=== PATIENT | female | born 1955 | race Caucasian/White ===

== ENCOUNTER 2021-12-26 17:56 | Inpatient (IN) ==
[2021-12-26] MEDS ORDERED: ONDANSETRON INJ 2 MG/ML 2 ML VIAL IV STA (18:27)
[2021-12-26] MEDS: SODIUM CHLORIDE 0.9% 500 ML IV SCH ×2 (18:35→23:03)
--- NOTE | 2021-12-26 18:56 | CT Scan Report ---
CT head/brain wo con CLINICAL HISTORY: syncope on coumadin Technique: Contiguous axial CT images of the head were acquired from the base of the skull to the kathleen abilio without intravenous contrast administration. Images were viewed in brain, subdural and bone [facility]. Automated dose lowering techniques and/or adjustment according to patient size were utilized for this exam. Comparison: None available at the time of this dictation. Findings: Areas of decreased attenuation are present in the periventricular and subcortical white matter bilate rally consistent with small vessel ischemic disease. Generalized cerebral atrophy with commensurate e nlargement of the ventricles, sulci, and cisterns is also present. There is no acute intracranial hem orrhage or evidence of acute territorial infarction. No shift of the midline structures, mass effect, or extra-axial abnormalities are shown. Atherosclerotic calcifications are present in the intracran ial segments of the internal carotid arteries. Encephalomalacia compatible with old infarct is seen i n the left parietal lobe. Imaged portions of the paranasal sinuses and mastoid air cells are clear. The orbits appear normal. There are no acute fractures of the calvaria or scalp swelling. Impression: No acute intracranial hemorrhage, no evidence of acute territorial infarction or other acute intracra nial disease process. ACT 112: Negative or not required by law. Electronically signed by: Yemi Kirby M.D. 12/26/2021 6:55 PM
--- NOTE | 2021-12-26 19:19 | XRay Report ---
XR abdomen 2V w PA chest CLINICAL HISTORY: cp epigastric pain TECHNIQUE: 2 views of the abdomen were obtained. A single view of the chest was obtained. Comparison: None available at the time of this dictation. FINDINGS: Median sternotomy wires are unchanged. Cardiomegaly is noted. The lungs are clear. No evidence of ple ural effusion or pneumothorax. The osseous structures are grossly unremarkable. No evidence of bowel obstruction is seen. IMPRESSION: Nonobstructive bowel gas pattern. ACT 112: Negative or not required by law. Electronically signed by: Yemi Kirby M.D. 12/26/2021 7:17 PM
[2021-12-26 19:56] LABS: Basophils # (auto) 0.01 K/uL (0-0.2); Basophils % (auto) 0.1 %; Eosinophils # (auto) 0.02 K/uL (0-0.5); Eosinophils % (auto) 0.1 %; Hematocrit (blood only) 43.3 % (37-47); Hemoglobin 14.1 g/dL (12.0-16.0); Immature Granulocytes # (auto) 0.04 K/uL (0.00-0.02); Immature Granulocytes % (auto) 0.2 %; Lymphocytes # (auto) 0.75 K/uL (1.2-3.4); Lymphocytes % (auto) 4.2 %; Mean Corpuscular Hemoglobin 29.1 pg (25-34); Mean Corpuscular Hgb Conc 32.6 g/dL (32-36); Mean Corpuscular Volume 89.3 fL (80-100); Mean Platelet Volume 10.7 fL (7.4-10.4); Monocytes # (auto) 0.49 K/uL (0.11-0.59); Monocytes % (auto) 2.8 %; Neutrophils # (auto) 16.35 K/uL (1.4-6.5); Neutrophils % (auto) 92.6 %; Platelet Count 306 K/uL (130-400); RDW Coefficient of Variation 14.6 % (11.5-14.5); RDW Standard Deviation 47.4 fL (36.4-46.3); Red Blood Count 4.85 M/uL (4.2-5.4); White Blood Count 17.66 K/uL (4.8-10.8)
[2021-12-26 20:01] LABS: Partial Thromboplastin Ratio 1.2; Partial Thromboplastin Time 31.7 Seconds (21.0-31.0); Prothrombin Time 20.2 Seconds (9.0-12.0)
[2021-12-26 20:09] LABS: BUN Creatinine Ratio 14.3 (10-20); Calcium 9.2 mg/dl (8.5-10.1); Creatinine Clr Calc Pharmacy 62.2 ml/min; Est GFR (Non-African American) 79.3 ml/min; Potassium 3.7 mmol/L (3.5-5.1)
--- NOTE | 2021-12-26 20:44 | Ultrasound Report ---
US gallbladder CLINICAL HISTORY: ruq pain TECHNIQUE: Multiple real-time sonographic images of the right upper quadrant were obtained. Comparison: None available at the time of this dictation. FINDINGS: The liver is diffusely homogenous with normal contour and echogenicity. No focal mass lesions are se en. No intrahepatic ductal dilatation is seen. Gallbladder wall is thickened and edematous measur ing 9 mm. Small gallstones are seen within. The vascular flow is seen in the gallbladder wall. A sono graphic Avila's sign was not elicited by the passenger conductor. The common duct measures 0.[address] at the level of the hepatic artery. The visualized portions of the pancreas appear normal. The right kidney shows normal echogenicity, cortical thickness and renal contour. The right kidney sh ows no evidence of hydronephrosis or mass. No ascites or free fluid is seen in Sauer's pouch. IMPRESSION: Findings are concerning for acute cholecystitis. Avila's sign was negative, correlation with history of pain medication is recommended. If uncertainty remains, nuclear medicine HIDA scan can be perform ed. ACT 112: Negative or not required by law. Electronically signed by: Yemi Kirby M.D. 12/26/2021 8:42 PM
[2021-12-26] MEDS ORDERED: PIPERACILLIN/TAZOBACTAM 4.5 GM/120 ML BAG IV ONE (21:39)
--- NOTE | 2021-12-26 21:57 | Surgery Consultation ---
Date of Consultation December 26, 2021 Assessment & Plan (1) Acute cholecystitis: I discussed with the treating emergency room physician and the patient is being admitted on the hospitalist service. Concerning acute cholecystitis we recommend proceeding as follows: Keep patient n.p.o. Provide analgesics Provide antiemetics Provide hydration with IV fluids [place] antibiotics. The treating emergency room physician has already initiated Zosyn Hold patient's Coumadin -Follow serial labs Obtain GI consult secondary to elevated LFTs It appears as though the patient may benefit from a cholecystectomy. Prior to performing cholecystectomy however we would like to obtain a gastroenterology input secondary to the patient's elevated LFTs. We will also need to have her INR decreased to make the risk of perioperative bleeding less likely. Would also be ideal to have patient medically cleared from a cardiology standpoint due to her significant cardiovascular history and near syncopal episode at time of her presentation today Additional recommendation will be forthcoming based on her clinical course as unfolds Supervising Physician Co-Signing Physician Notes I personally saw and evaluated the patient with Hussain Wiseman PA-C and agree with the assessment and plan. 66-year-old female with acute cholecystitis, elevated LFTs, significant cardiac history as well as syncopal episode Ultrasound images and results viewed by me Clinically she does have what looks like acute cholecystitis Medicine is already admitting the patient We will keep her n.p.o. give her IV antibiotics and consult gastroenterology for elevated LFTs History of Present Illness Reason for Consultation: Cholecystitis History of Present Illness This is a 66-year-old female who presented to [facility] emergency department secondary to a near syncopal episode. Patient notes that she was in her usual state of health earlier today but then developed some pain in her right upper quadrant as well as chest with associated nausea, vomiting, and diarrhea. She then had a near syncopal episode but denies actually passing out and specifically notes that she did not fall or hit her head. She notes the pain did not radiate. She denies any provocative factors of the pain but note that the pain was improved when she vomited and she also has a significant cardiac history and therefore took nitroglycerin which she noted did improve the pain slightly. I did asked the patient about whether or not she experienced postprandial pain over the past several weeks which she denies. Patient notes that she has a significant cardiac history having suffered a heart attack in the past and also underwent coronary bypass grafting in 2019. She does follow locally with Elton Lee of [facility] [address] cardiology. She is notes that she has seen her cardiology team within the past month. The patient notes that she does try to lead an active lifestyle she is able to perform housework and walk her dog. She notes with these activities she does not get chest pain or shortness of breath. Today in the emergency department patient had labs and imaging which independent reviewed. The patient did undergo a CT scan of the head that showed no acute intracranial hemorrhage or acute intracranial strokes. Patient did have a chest x-ray and abdominal x-ray that showed a nonobstructive Bowel gas pattern and no evidence of pneumonia. A gallbladder ultrasound was performed that showed findings concerning for acute cholecystitis. The gallbladder wall was noted to be thickened and edematous measuring up to 9 mm. There were small gallstones seen within the gallbladder. Labs include a CBC her white blood cell count was 17.6. Hemoglobin, hematocrit, and platelet count were all normal. Coagulation studies showed an INR of 2.0. Chemistry profile showed sodium and potassium are both normal. BUN and creatinine were noted to be normal. Patient's total bilirubin and direct bilirubin were 1.9 and 1.2 respectively. AST and ALT were both elevated at 517 and 128 respectively. Alkaline phosphatase was 250. Troponin was checked and was not elevated. The patient's lipase was also not elevated. COVID test was performed and was negative. An EKG was performed that did not show any changes indicative of acute ischemia and sinus rhythm was noted. At the time of my interview the patient was resting comfortably in bed and she was in no distress. Allergies Allergy/AdvReac Type Severity Reaction Status Date / Time clopidogrel [From Plavix] Allergy Severe facial Verified 12/26/21 19:01 swelling, itching ticagrelor [From Brilinta] Allergy Severe facial Verified 12/26/21 19:01 swelling, itching oxycodone Allergy Intermediate itching Verified 12/26/21 19:01 Home Medications Medication Instructions Recorded Confirmed Type atorvastatin 10 mg tablet 20 mg PO QPM 08/26/20 12/26/21 History fluoxetine 40 mg capsule 40 mg PO QAM 08/26/20 12/26/21 History ipratropium bromide 17 2 puff INHALATION QID 08/26/20 12/26/21 History mcg/actuation HFA aerosol inhaler nitroglycerin 0.4 mg sublingual 0.4 mg SUBLINGUAL Q5M PRN 08/26/20 12/26/21 History tablet (Nitrostat) sacubitril 97 mg-valsartan 103 mg 1 tab PO BID 08/26/20 12/26/21 History tablet (Entresto) warfarin 2.5 mg tablet See Rx Instructions .ROUTE 08/26/20 12/26/21 History .COMPLEX tab amlodipine 2.5 mg tablet 2.5 mg PO QAM 09/30/21 12/26/21 History famotidine 20 mg tablet 20 mg PO HS 09/30/21 12/26/21 History fluticasone furoate 100 1 inh INHALATION QAM 09/30/21 12/26/21 History mcg-vilanterol 25 mcg/dose inhalation powder (Breo Ellipta) mirtazapine 45 mg tablet 45 mg PO HS 09/30/21 12/26/21 History pantoprazole 40 mg tablet,delayed 40 mg PO BID 09/30/21 12/26/21 History release alendronate 70 mg tablet 70 mg PO WK 12/26/21 12/26/21 History aspirin 81 mg chewable tablet 81 mg PO DAILY 12/26/21 12/26/21 History buspirone 30 mg tablet 30 mg PO BID 12/26/21 12/26/21 History hydrocodone 7.5 mg-acetaminophen 1 tab PO Q8H PRN 12/26/21 12/26/21 History 325 mg tablet metoprolol succinate 25 mg 25 mg PO BID 12/26/21 12/26/21 History tablet,extended release 24 hr Patient History Medical History Anxiety Anxiety disorder Aphasia, mixed CAD (coronary artery disease) follows with Elton Lee PA-C. CHF (congestive heart failure) COPD (chronic obstructive pulmonary disease) CVA (cerebral vascular accident) 2004; dysphagia, some expressive/receptive aphasia, improved with speech therapy Depression Dysphagia GERD (gastroesophageal reflux disease) History of anesthesia reaction pt has some expressive aphasia r/t previous stroke, had difficult time explaining anesthesia problem. says she had difficulty breathing coming out of anesthesia in past. unable to elaborate beyond that. says occurence x 1 while living in [place]. History of myocardial infarction 1991 HLD (hyperlipidemia) HTN (hypertension) Osteoarthritis Osteoporosis Poor historian poor memory Throat fullness reason for EGD Surgical History H/O heart artery stent 5 stents (thinks last placed in 2019) History of cardiac catheterization multiple (believes most recent was in 2019 while living in [place]) History of heart valve replacement 09/2019 while living in [place] History of open heart surgery Sep 23, 2019 History of tonsillectomy History of wisdom tooth extraction Social History Smoking Status: Former smoker Tobacco Type: Cigarettes packs per day: 0.25; Smoking End Date: 1 year ago; Second Hand Exposure: No; Do You Dip or Chew Tobacco: No; Tobacco Cessation Education Requested by Patient: No Hx Alcohol Use: No Hx Substance Use: No Preferred Language: Macedonian Communication Ability: Effective Visual Impairment: Limited Hearing Ability: Normal Hyperion Developer Required: No Beliefs That Will Affect Care: None marital status: / Current Living Situation: Alone current occupational status: disabled current occupation: on disability since 2004 Other Information That Helps Us Care for You: No Feels Safe at Home: Yes Safety Concerns: Feels Safe At This Time Assistive Devices: Denture - Upper, Denture - Lower and Glasses Review of Systems Constitutional: no fever and no chills Eyes: no diplopia Ear, Nose, Mouth, Throat: no ear pain Respiratory: no cough and no dyspnea Cardiovascular: + chest pain and + syncope (Near syncope) Gastrointestinal: + abdominal pain, + nausea and + vomiting Genitourinary: no dysuria Musculoskeletal: no back pain Integumentary: no rash Neurologic: no localized weakness Physical Exam Constitutional: well developed and well nourished; no acute distress Eyes: no conjunctival abnormality ENMT: Ears: no hearing impairment and no external ear abnormality Mouth: no oropharynx abnormality Neck: trachea midline Respiratory: normal respiratory effort; no respiratory distress and no labored breathing Cardiovascular: Rate/Rhythm: regular rate and regular rhythm Gastrointestinal (Abdomen): Abdomen is soft and nondistended. There is pain with palpation in the right upper quadrant. Musculoskeletal: No calf tenderness Skin: no rashes Neurologic: moves all extremities Psychiatric: A+Ox3, euthymic affect Results & Data ([facility]) Vital Signs (Past 12 Hours) Vital Signs Temp Pulse Resp BP Pulse Ox 12/26/21 21:00 74 22 128/79 94 12/26/21 19:30 76 19 132/78 92 12/26/21 19:05 94 12/26/21 19:01 77 21 167/92 H 94 12/26/21 18:30 61 19 101/62 93 12/26/21 18:28 93 12/26/21 18:02 36.8 C 64 20 158/75 H 93 PG Care Time/CCT Total # of Minutes Spent Total Time Spent with Patient: Total time spent is greater than 50% in coordination of care (as documented) at patient's floor/unit and/or counseling patient: Coding Level of Care Code 13487 Inpt Consult Level 5 Diagnoses Acute cholecystitis K81.0
[2021-12-26 21:58] LABS: Albumin Level 4.2 gm/dl (3.4-5.0); Bilirubin Direct 1.2 mg/dl (0-0.2); Bilirubin,Total 1.9 mg/dl (0.2-1.0)
--- NOTE | 2021-12-26 22:43 | Emergency Department Note ---
History of Present Illness General Chief complaint: Syncope Time Seen by Provider: 12/26/21 18:19 History of Present Illness Provider complaint: Abdominal pain syncope diarrhea Onset (ago): day(s) 1 Location: abdomen Pain Consistency: + intermittent Quality: + stabbing, + aching, + sharp and + dull Relieved By: + none Exacerbated By: + none Associated symptoms: + chest pain, + nausea/vomiting and + syncope; no cough, no fever/chills, no headaches, no seizure or no weakness 66-year-old female presents to the emergency department for multiple complaints. Patient states earlier today she was having diarrhea. Patient states she is then developed right upper quadrant pain. Patient reports at 1 PM she started having right-sided chest pain so she took a nitroglycerin. Patient states after she took nitroglycerin she felt more nauseous and then had a syncopal episode. Patient states she did not fall or hit her head. Patient is on Coumadin. No difficulty breathing. Home Medications Medication Instructions Recorded Confirmed Type atorvastatin 10 mg tablet 20 mg PO QPM 08/26/20 12/26/21 History fluoxetine 40 mg capsule 40 mg PO QAM 08/26/20 12/26/21 History ipratropium bromide 17 2 puff INHALATION QID 08/26/20 12/26/21 History mcg/actuation HFA aerosol inhaler nitroglycerin 0.4 mg sublingual 0.4 mg SUBLINGUAL Q5M PRN 08/26/20 12/26/21 History tablet (Nitrostat) sacubitril 97 mg-valsartan 103 mg 1 tab PO BID 08/26/20 12/26/21 History tablet (Entresto) warfarin 2.5 mg tablet See Rx Instructions .ROUTE 08/26/20 12/26/21 History .COMPLEX tab amlodipine 2.5 mg tablet 2.5 mg PO QAM 09/30/21 12/26/21 History famotidine 20 mg tablet 20 mg PO HS 09/30/21 12/26/21 History fluticasone furoate 100 1 inh INHALATION QAM 09/30/21 12/26/21 History mcg-vilanterol 25 mcg/dose inhalation powder (Breo Ellipta) mirtazapine 45 mg tablet 45 mg PO HS 09/30/21 12/26/21 History pantoprazole 40 mg tablet,delayed 40 mg PO BID 09/30/21 12/26/21 History release alendronate 70 mg tablet 70 mg PO WK 12/26/21 12/26/21 History aspirin 81 mg chewable tablet 81 mg PO DAILY 12/26/21 12/26/21 History buspirone 30 mg tablet 30 mg PO BID 12/26/21 12/26/21 History hydrocodone 7.5 mg-acetaminophen 1 tab PO Q8H PRN 12/26/21 12/26/21 History 325 mg tablet metoprolol succinate 25 mg 25 mg PO BID 12/26/21 12/26/21 History tablet,extended release 24 hr Allergies Allergy/AdvReac Type Severity Reaction Status Date / Time clopidogrel [From Plavix] Allergy Severe facial Verified 12/26/21 19:01 swelling, itching ticagrelor [From Brilinta] Allergy Severe facial Verified 12/26/21 19:01 swelling, itching oxycodone Allergy Intermediate itching Verified 12/26/21 19:01 Past Med/Surg History Medical History Anxiety Anxiety disorder Aphasia, mixed CAD (coronary artery disease) follows with Elton Lee PA-C. CHF (congestive heart failure) COPD (chronic obstructive pulmonary disease) CVA (cerebral vascular accident) 2004; dysphagia, some expressive/receptive aphasia, improved with speech therapy Depression Dysphagia GERD (gastroesophageal reflux disease) History of anesthesia reaction pt has some expressive aphasia r/t previous stroke, had difficult time explaining anesthesia problem. says she had difficulty breathing coming out of anesthesia in past. unable to elaborate beyond that. says occurence x 1 while living in [place]. History of myocardial infarction 1991 HLD (hyperlipidemia) HTN (hypertension) Osteoarthritis Osteoporosis Poor historian poor memory Throat fullness reason for EGD Surgical History H/O heart artery stent 5 stents (thinks last placed in 2019) History of cardiac catheterization multiple (believes most recent was in 2019 while living in [place]) History of heart valve replacement 09/2019 while living in [place] History of open heart surgery Sep 23, 2019 History of tonsillectomy History of wisdom tooth extraction Social History Smoking Status: Former smoker Tobacco Type: Cigarettes packs per day: 0.25; Second Hand Exposure: No; Hx Alcohol Use: No Hx Substance Use: No Preferred Language: Sami Communication Ability: Effective Visual Impairment: Limited Hearing Ability: Normal Informatics Analyst Required: No Beliefs That Will Affect Care: None marital status: / Current Living Situation: Alone current occupational status: disabled current occupation: on disability since 2004 Feels Safe at Home: Yes Assistive Devices: Denture - Upper, Denture - Lower and Glasses Review of Systems A total of 10 systems reviewed and were otherwise negative Physical Exam Vital Signs Vital Signs - 24 hr 12/26/21 18:02 12/26/21 18:28 12/26/21 18:30 Temperature 36.8 C Temperature Source Oral Pulse Rate 64 61 Respiratory Rate 20 19 Respiratory Effort / Characteristics Non-Labored Spontaneous Respiratory Depth Normal Blood Pressure 158/75 H 101/62 Blood Pressure Mean 102 75 Blood Pressure Position Lying Pulse Oximetry 93 93 93 Oxygen Delivery Method Room Air Room Air Sepsis Recent Fever Within 48 Hours No Sepsis New/Unexplained Change in Mental Status N/A Sepsis Action Taken by Nursing No Action Required 12/26/21 19:01 12/26/21 19:05 12/26/21 19:30 Temperature Temperature Source Pulse Rate 77 76 Respiratory Rate 21 19 Respiratory Effort / Characteristics Respiratory Depth Blood Pressure 167/92 H 132/78 Blood Pressure Mean 117 96 Blood Pressure Position Pulse Oximetry 94 94 92 Oxygen Delivery Method Room Air Sepsis Recent Fever Within 48 Hours Sepsis New/Unexplained Change in Mental Status Sepsis Action Taken by Nursing 12/26/21 21:00 12/26/21 21:30 12/26/21 22:00 Temperature Temperature Source Pulse Rate 74 77 72 Respiratory Rate 22 20 23 Respiratory Effort / Characteristics Respiratory Depth Blood Pressure 128/79 120/73 116/73 Blood Pressure Mean 95 88 87 Blood Pressure Position Pulse Oximetry 94 95 96 Oxygen Delivery Method Sepsis Recent Fever Within 48 Hours Sepsis New/Unexplained Change in Mental Status Sepsis Action Taken by Nursing Physical Exam GENERAL: She is oriented to person, place, and time. She appears well-developed and well-nourished. She does not appear distressed. HENT: Exam performed. -Head: Normocephalic and atraumatic. -Right Ear: External ear normal. No mastoid tenderness. -Left Ear: External ear normal. No mastoid tenderness. -Mouth/Throat: The oropharynx is clear and moist. No trismus in the jaw. No dental abscesses or uvula swelling. No oropharyngeal exudate or tonsillar abscesses. EYES: Conjunctivae and EOM are normal. Pupils are equal, round, and reactive to light. Right eye exhibits no discharge. Left eye exhibits no discharge. No scleral icterus. NECK: Normal range of motion. Neck supple. No JVD present. No spinous process tenderness present. No carotid bruit present. No rigidity. No tracheal deviation and normal range of motion present. No Brudzinski's sign and no Kernig's sign noted. CV: Normal rate, regular rhythm, normal heart sounds and intact distal pulses. There is no peripheral edema. Palpable radial pulses bue. PULM/CHEST: Effort normal and breath sounds normal. No respiratory distress. No stridor. She has no wheezes. She has no rales. -Chest Wall: She exhibits no tenderness. ABD: The abdomen is soft. Bowel sounds are normal. She has no distension. No mass is present. There is tenderness epigastric area and right upper quadrant area There is no rebound, no guarding, no Avila's sign and no tenderness at McBurney's point. Rovsig negative MUSC/SKEL: Normal range of motion. There is no peripheral edema, tenderness or deformity. LYMPH: No cervical adenopathy. NEURO: She is alert and oriented to person, place, and time. She has normal strength. No cranial nerve deficit or sensory deficit. Coordination and gait normal. GCS eye subscore is 4. GCS verbal subscore is 5. GCS motor subscore is 6. Cerebellar tests wnl. SKIN: Skin is warm and dry. She is not diaphoretic. PSYCH: She has a normal mood and affect. Behavior is normal. Judgment and thought content normal. Course Course 1818: The patient was evaluated in room A3. A complete history and physical exam was performed Cardiac monitoring: An order was placed for continuous cardiac monitoring. The monitor shows a rate of 70 with sinus rhythm. 2134: Vital signs stable.Labs show leukocytosis of 17.6. INR therapeutic at 2. Bilirubin elevated at 1.9 direct bilirubin elevated 1.2. AST and ALT are 517 and 128 respectively. Alkaline phosphatase 250. Troponin within normal limits.Ultrasound of the gallbladder is concerning for acute cholecystitis. CT of the head within normal limits. Chest x-ray within normal limits. Discussed case with general surgery Juvenal Lew who recommends inpatient admission to medicine they will be on consult. Zosyn ordered for the patient. Administered Medications Sodium Chloride (Nss) 500 mls @ 125 mls/hr IV .Q4H BELLO Stop: 01/25/22 18:29 Last Infusion: 12/26/21 22:35 Dose: 0 mls/hr Documented by: [id number] Admin: 12/26/21 18:35 Dose: 125 mls/hr Documented by: [id number] Discontinued Medications Piperacillin Sod/Tazobactam Sod (Zosyn) 4.5 gm in 120 mls @ 240 mls/hr IV NOW ONE Stop: 12/26/21 22:08 Last Infusion: 12/26/21 22:34 Dose: 0 mls/hr Documented by: [id number] Admin: 12/26/21 21:51 Dose: 240 mls/hr Documented by: [id number] Ondansetron HCl (Ondansetron Inj 2 Mg/Ml 2 Ml Vial) 4 mg IV NOW STA Stop: 12/26/21 18:28 Last Admin: 12/26/21 18:35 Dose: 4 mg Documented by: [id number] Medical Decision Making Laboratory Data Result diagrams: 12/26/21 19:37 12/26/21 19:37 Lab Results 12/26/21 12/26/21 12/26/21 Range/Units 19:37 19:37 19:37 WBC 17.66 H (4.8-10.8) K/uL RBC 4.85 (4.2-5.4) M/uL Hgb 14.1 (12.0-16.0) g/dL Hct 43.3 (37-47) % MCV 89.3 (80-100) fL MCH 29.1 (25-34) pg MCHC 32.6 (32-36) g/dL RDW Std Deviation 47.4 H (36.4-46.3) fL RDW Coeff of Fredy 14.6 H (11.5-14.5) % Plt Count 306 (130-400) K/uL MPV 10.7 H (7.4-10.4) fL Immature Gran % (Auto) 0.2 % Neut % (Auto) 92.6 % Lymph % (Auto) 4.2 % Lares % (Auto) 2.8 % Eos % (Auto) 0.1 % Baso % (Auto) 0.1 % Neut # (Auto) 16.35 H (1.4-6.5) K/uL Lymph # (Auto) 0.75 L (1.2-3.4) K/uL Lares # (Auto) 0.49 (0.11-0.59) K/uL Eos # (Auto) 0.02 (0-0.5) K/uL Baso # (Auto) 0.01 (0-0.2) K/uL Immature Gran # (Auto) 0.04 H (0.00-0.02) K/uL PT 20.2 H (9.0-12.0) Seconds INR 2.0 H (0.9-1.1) APTT 31.7 H (21.0-31.0) Seconds PTT Ratio 1.2 Sodium (136-145) mmol/L Potassium (3.5-5.1) mmol/L Chloride (98-107) mmol/L Carbon Dioxide (21-32) mmol/L Anion Gap (3-11) BUN (6-23) mg/dl Creatinine (0.6-1.2) mg/dl Est Cr Clr Drug Dosing ml/min Est GFR ( Amer) ml/min Est GFR (Non-Af Amer) ml/min BUN/Creatinine Ratio (10-20) Glucose (70-99(Fasting)) mg/dl Calcium (8.5-10.1) mg/dl Total Bilirubin (0.2-1.0) mg/dl Direct Bilirubin (0-0.2) mg/dl AST (13-39) U/L ALT (7-52) U/L Alkaline Phosphatase (34-104) U/L Troponin I High Sens 8.9 (0-14) pg/ml Total Protein (6.0-8.3) gm/dl Albumin (3.4-5.0) gm/dl Lipase (11-82) U/L SARS-CoV-2, RNA, NAAT (NEGATIVE) 12/26/21 12/26/21 12/26/21 Range/Units 19:37 19:38 20:41 WBC (4.8-10.8) K/uL RBC (4.2-5.4) M/uL Hgb (12.0-16.0) g/dL Hct (37-47) % MCV (80-100) fL MCH (25-34) pg MCHC (32-36) g/dL RDW Std Deviation (36.4-46.3) fL RDW Coeff of Fredy (11.5-14.5) % Plt Count (130-400) K/uL MPV (7.4-10.4) fL Immature Gran % (Auto) % Neut % (Auto) % Lymph % (Auto) % Lares % (Auto) % Eos % (Auto) % Baso % (Auto) % Neut # (Auto) (1.4-6.5) K/uL Lymph # (Auto) (1.2-3.4) K/uL Lares # (Auto) (0.11-0.59) K/uL Eos # (Auto) (0-0.5) K/uL Baso # (Auto) (0-0.2) K/uL Immature Gran # (Auto) (0.00-0.02) K/uL PT (9.0-12.0) Seconds INR (0.9-1.1) APTT (21.0-31.0) Seconds PTT Ratio Sodium 138 (136-145) mmol/L Potassium 3.7 (3.5-5.1) mmol/L Chloride 104 (98-107) mmol/L Carbon Dioxide 23 (21-32) mmol/L Anion Gap 11 (3-11) BUN 11 (6-23) mg/dl Creatinine 0.77 (0.6-1.2) mg/dl Est Cr Clr Drug Dosing 62.2 ml/min Est GFR ( Amer) 92.0 ml/min Est GFR (Non-Af Amer) 79.3 ml/min BUN/Creatinine Ratio 14.3 (10-20) Glucose 94 (70-99(Fasting)) mg/dl Calcium 9.2 (8.5-10.1) mg/dl Total Bilirubin 1.9 H (0.2-1.0) mg/dl Direct Bilirubin 1.2 H (0-0.2) mg/dl AST 517 H (13-39) U/L ALT 128 H (7-52) U/L Alkaline Phosphatase 250 H (34-104) U/L Troponin I High Sens (0-14) pg/ml Total Protein 7.0 (6.0-8.3) gm/dl Albumin 4.2 (3.4-5.0) gm/dl Lipase 9 L (11-82) U/L SARS-CoV-2, RNA, NAAT NEGATIVE (NEGATIVE) Imaging Data Radiologist's Impression: Head CT 12/26/21 18:19 CT head/brain wo con CLINICAL HISTORY: syncope on coumadin Technique: Contiguous axial CT images of the head were acquired from the base of the skull to the vertex without intravenous contrast administration. Images were viewed in brain, subdural and bone windows. Automated dose lowering techniques and/or adjustment according to patient size were utilized for this exam. Comparison: None available at the time of this dictation. Findings: Areas of decreased attenuation are present in the periventricular and subcortical white matter bilaterally consistent with small vessel ischemic disease. Generalized cerebral atrophy with commensurate enlargement of the ventricles, sulci, and cisterns is also present. There is no acute intracranial hemorrhage or evidence of acute territorial infarction. No shift of the midline structures, mass effect, or extra-axial abnormalities are shown. Atherosclerotic calcifications are present in the intracranial segments of the internal carotid arteries. Encephalomalacia compatible with old infarct is seen in the left parietal lobe. Imaged portions of the paranasal sinuses and mastoid air cells are clear. The orbits appear normal. There are no acute fractures of the calvaria or scalp swelling. Impression: No acute intracranial hemorrhage, no evidence of acute territorial infarction or other acute intracranial disease process. ACT 112: Negative or not required by law. Electronically signed by: Yemi Kirby M.D. 12/26/2021 6:55 PM Chest/Abdomen X-ray 12/26/21 18:27 XR abdomen 2V w PA chest CLINICAL HISTORY: cp epigastric pain TECHNIQUE: 2 views of the abdomen were obtained. A single view of the chest was obtained. Comparison: None available at the time of this dictation. FINDINGS: Median sternotomy wires are unchanged. Cardiomegaly is noted. The lungs are clear. No evidence of pleural effusion or pneumothorax. The osseous structures are grossly unremarkable. No evidence of bowel obstruct ion is seen. IMPRESSION: Nonobstructive bowel gas pattern. ACT 112: Negative or not required by law. Electronically signed by: Yemi Kirby M.D. 12/26/2021 7:17 PM Gallbladder Ultrasound 12/26/21 18:27 US gallbladder CLINICAL HISTORY: ruq pain TECHNIQUE: Multiple real-time sonographic images of the right upper quadrant were obtained. Comparison: None available at the time of this dictation. FINDINGS: The liver is diffusely homogenous with normal contour and echogenicity. No focal mass lesions are seen. No intrahepatic ductal dilatation is seen. Gallbladder wall is thickened and edematous measuring 9 mm. Small gallstones are seen within. The vascular flow is seen in the gallbladder wall. A sonographic Avila's sign was not elicited by the truck packer. The common duct measures 0.5 cm in diameter at the level of the hepatic artery. The visualized portions of the pancreas appear normal. The right kidney shows normal echogenicity, cortical thickness and renal contour. The right kidney shows no evidence of hydronephrosis or mass. No ascites or free fluid is seen in Sauer's pouch. IMPRESSION: Findings are concerning for acute cholecystitis. Avila's sign was negative, correlation with history of pain medication is recommended. If uncertainty remains, nuclear medicine HIDA scan can be performed. ACT 112: Negative or not required by law. Electronically signed by: Yemi Kirby M.D. 12/26/2021 8:42 PM ECG Data Indication: + abdominal pain Rate (beats per minute): 65 Rhythm: + normal sinus ECG Intervals/blocks: + Normal QRS, + Normal [place] and + Normal QT-c ECG ST segments: + Normal ST segments MDM Narrative Vital signs stable.Labs show leukocytosis of 17.6. INR therapeutic at 2. Bilirubin elevated at 1.9 direct bilirubin elevated 1.2. AST and ALT are 517 and 128 respectively. Alkaline phosphatase 250. Troponin within normal limits.Ultrasound of the gallbladder is concerning for acute cholecystitis. CT of the head within normal limits. Chest x-ray within normal limits. Discussed case with general surgery Juvenal Lew who recommends inpatient admission to medicine they will be on consult. Kervinn ordered for the patient. Impression & Plan Acute cholecystitis Discharge Plan Visit Data Chief Complaint: Syncope ED Provider: Lorne Hyman Discharge Problem: Acute cholecystitis Patient Disposition: Admitted As Inpatient Forms Stand Alone Forms: [facility] [employer] Prescriptions Prescriptions: No Action Entresto 97-103 mg tablet 1 tab PO BID RF: 0 atorvastatin 10 mg tablet 20 mg PO QPM RF: 0 warfarin 2.5 mg tablet See Rx Instructions .ROUTE .COMPLEX RF: 0 fluoxetine 40 mg capsule 40 mg PO QAM RF: 0 nitroglycerin [Nitrostat] 0.4 mg tablet, sublingual 0.4 mg sublingual Q5M PRN (Reason: Chest Pain) RF: 0 ipratropium bromide 17 mcg/actuation HFA aerosol inhaler 2 puff inhalation QID RF: 0 amlodipine 2.5 mg Tablet 2.5 mg PO QAM RF: 0 famotidine 20 mg Tablet 20 mg PO HS RF: 0 pantoprazole 40 mg Tablet,Delayed Release (Dr/Ec) 40 mg PO BID RF: 0 mirtazapine 45 mg Tablet 45 mg PO HS RF: 0 Breo Ellipta 100-25 mcg/dose Blister With Device 1 inh INHALATION QAM RF: 0 alendronate 70 mg tablet 70 mg PO WK RF: 0 hydrocodone-acetaminophen 7.5-325 mg tablet 1 tab PO Q8H PRN (Reason: Pain) RF: 0 buspirone 30 mg Tablet 30 mg PO BID RF: 0 aspirin 81 mg Tablet,Chewable 81 mg PO DAILY RF: 0 metoprolol succinate 25 mg tablet extended release 24 hr 25 mg PO BID RF: 0 Referrals Referrals: Abdon Pa DO [Primary Care Provider] -
--- NOTE | 2021-12-27 01:13 | History and Physical Report ---
DATE OF ADMISSION: 12/26/2021. CHIEF COMPLAINT: Right-sided abdominal pain, chest pain and questionable near syncope. 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 Currently, somewhat slow to speak, lives alone. She states the only family is her sister. Currently comes with upper right-sided abdominal pain and chest pain, it happened today for the first time. The pain is in the right upper quadrant abdomen and radiated to chest, associated with some nausea and also had diarrhea and feeling cold. Denies any fevers. She took nitroglycerin, but it did not help. Says she leaned on the bathroom for some time because she felt something was not right, but she did not pass out. Currently, pain is improved. Hemodynamically stable. Denies any headache currently, no blurred visions, no earache, no runny nose, no sore throat, no cough. She states that she does not eat much, but no difficulty swallowing. She recently had an EGD with esophageal dilatation, she is supposed to get another EGD in February as per the patient. She says her stools are weird, like she has to flush many times. Denies any blood in stools. Normal bladder movements. No swelling in the legs. ALLERGIES: PLAVIX, BRILINTA, OXYCODONE. PAST MEDICAL HISTORY: As mentioned above. PAST SURGICAL HISTORY: CABG, aortic valve replacement, cardiac catheterization with stent placement, EGD, EGD with biopsies, total abdominal hysterectomy with removal of tubes. MEDICATIONS: The patient is on alendronate 70 mg p.o. weekly, amlodipine 2.5 mg p.o. a.m., aspirin 81 mg p.o. daily, atorvastatin 20 mg p.o. p.m., Breo Ellipta 1 inhalation a.m., buspirone 30 mg p.o. b.i.d., famotidine 20 mg p.o. at bedtime, fluoxetine 40 mg p.o. a.m., hydrocodone/acetaminophen 1 tablet p.o. q.8 hours p.r.n., ipratropium bromide inhalation 2 puffs q.i.d. p.r.n., metoprolol succinate 25 mg p.o. b.i.d., mirtazapine 45 mg p.o. at bedtime, nitroglycerin 0.4 mg sublingual p.r.n., Protonix 40 mg p.o. b.i.d., Entresto 1 tablet p.o. b.i.d., warfarin 2.5 mg as directed. FAMILY HISTORY: Significant for brother has arthritis; sister has breast cancer; mother has colon cancer; father has [place], CABG, pacemaker; sister has leukemia, brain aneurysm, osteoarthritis. SOCIAL HISTORY: Former smoker, quit in 2020, averagely smoked 1 pack a day for 41 years. Alcohol on holidays. No drug use. REVIEW OF SYSTEMS: As per HPI. Rest of the review of systems is negative. PHYSICAL EXAMINATION: GENERAL: The patient is of moderate build, not in acute distress. VITAL SIGNS: Temperature 36.8, pulse 72, respiratory rate 21, blood pressure 113/71, oxygen 96% on room air. HEENT: Pupils equal, round and reactive to light. Oral mucosa moist. NECK: No JVD, no neck masses. CARDIOVASCULAR: S1 and S2 heard. Regular rate and rhythm. No murmur, no gallop. RESPIRATORY SYSTEM: Normal AP diameter. ABDOMEN: Mild right upper quadrant tenderness. No guarding, no rigidity, no distention. CENTRAL NERVOUS SYSTEM: Alert and oriented. Speech is somewhat pressured, speaking slowly. No facial droop. Nonfocal. EXTREMITIES: No edema, no erythema. LABORATORY DATA: WBC 17.6, hemoglobin 14.1, hematocrit 43.3, platelets 306. PT 20.2, INR 2, APTT 31.7. Sodium 138, potassium 3.7, chloride 104, bicarbonate 23, BUN 11, creatinine 0.7, serum glucose 94, calcium 9.2, total bilirubin 1.9, direct bilirubin 1.2, AST 517, ALT 128, alkaline phosphatase 250. Troponin I high sensitivity of 8.9. Lipase 9. SARS-CoV-2 RNA negative. Gallbladder ultrasound shows findings that are concerning for acute cholecystitis. Avila sign was negative. Correlation with HIDA is recommended. Chest and abdominal x-ray: Nonobstructive bowel gas pattern. CT of the head: No acute findings. EKG: Normal sinus rhythm at a rate of 65, nonspecific T- wave abnormalities. ASSESSMENT AND PLAN: This is a 66-year-old female who presents with right upper quadrant abdominal pain radiating to the chest, questionable near syncope and found to have cholecystitis. 1. Cholecystitis, elevated liver function tests: We will keep her n.p.o., gentle fluids, IV morphine p.r.n., IV Zosyn. We will get MRCP. Gastrointestinal consult in a.m. Already seen by surgery. Closely monitor in the med-telemetry. 2. Questionable near syncope: The patient has significant cardiac history. We will follow serial enzymes, echocardiogram. Monitor in the telemetry and consult cardiology for preoperative clearance. 3. History of coronary artery disease, status post multiple stents, status post coronary artery bypass grafting: On aspirin, , statin and metoprolol succinate. 4. History of paroxysmal atrial fibrillation: Rate controlled with metoprolol. Holding Coumadin for procedures. Monitor in med-telemetry. 5. History of chronic systolic congestive heart failure: On recent echocardiogram, ejection fraction was 50%. Continue Entresto, metoprolol succinate. We will monitor for any volume overload, getting gentle fluids. 6. History of embolic cerebrovascular accident, history of aphasia: Currently, speech is somewhat pressured. Continue her aspirin and statin. Holding Coumadin for procedures. 7. Gastroesophageal reflux disease: Continue Protonix.She also recently had esophageal dilatation 8. Depression: Continue mirtazapine, fluoxetine and buspirone. 9. Hyperlipidemia: On statin. 10. Hypertension: Amlodipine, metoprolol and Entresto. We will monitor the blood pressure. 11. History of chronic obstructive pulmonary disease: Currently not smoking. Continue home inhalers. 12. Status post bioprosthetic aortic valve replacement. 13. Deep venous thrombosis prophylaxis: Therapeutic sequential compression devices. DISPOSITION: Closely monitor in the med-tele. PT/OT prior to discharge. Social service to help with discharge planning. Job ID: [id number] [facility]ENTER[facility]licja
[2021-12-27] MEDS ORDERED: ONDANSETRON INJ 2 MG/ML 2 ML VIAL IV PRN (01:36)
[2021-12-27] MEDS ORDERED: NITROGLYCERIN SL 0.4 MG/TAB TAB SL PRN ×2 (01:36)
[2021-12-27] MEDS ORDERED: PIPERACILL/TAZOBAC CONSULT ACTIVE PRN (01:36)
[2021-12-27] MEDS ORDERED: ACETAMINOPHEN 325 MG TAB PO PRN (01:36)
[2021-12-27] MEDS ORDERED: MoRPHine SULFATE 4 MG/ML 1 ML CARP\\VIAL IV PRN (01:36)
[2021-12-27] MEDS: PIPERACILLIN/TAZOBACTAM 3.375 GM in DEXTROSE 5% 100 ML IV SCH ×3 (02:26→19:18)
[2021-12-27] MEDS: D5W AND 1/2NSS 1,000 ML IV SCH ×2 (02:26→23:15)
[2021-12-27 05:55] LABS: Hematocrit (blood only) 37.2 % (37-47); Hemoglobin 12.1 g/dL (12.0-16.0); Immature Granulocytes # (auto) 0.02 K/uL (0.00-0.02); Immature Granulocytes % (auto) 0.2 %; Lymphocytes # (auto) 0.68 K/uL (1.2-3.4); Lymphocytes % (auto) 6.9 %; Mean Corpuscular Hemoglobin 29.4 pg (25-34); Mean Corpuscular Hgb Conc 32.5 g/dL (32-36); Mean Corpuscular Volume 90.5 fL (80-100); Mean Platelet Volume 10.8 fL (7.4-10.4); Monocytes % (auto) 7.1 %; Neutrophils # (auto) 8.43 K/uL (1.4-6.5); Neutrophils % (auto) 85.8 %; Platelet Count 250 K/uL (130-400); RDW Coefficient of Variation 14.5 % (11.5-14.5); RDW Standard Deviation 48.5 fL (36.4-46.3); Red Blood Count 4.11 M/uL (4.2-5.4); White Blood Count 9.83 K/uL (4.8-10.8)
[2021-12-27 06:16] LABS: INR 1.9 (0.9-1.1)
[2021-12-27 06:24] LABS: BUN Creatinine Ratio 11.8 (10-20); Calcium 8.3 mg/dl (8.5-10.1); Creatinine Clr Calc Pharmacy 55.8 ml/min; Est GFR (African American) 81.6 ml/min; Est GFR (Non-African American) 70.4 ml/min; Magnesium 1.7 mg/dl (1.7-2.4); Potassium 3.7 mmol/L (3.5-5.1)
[2021-12-27 06:26] LABS: Troponin I High Sensitivity 12.6 pg/ml (0-14)
[2021-12-27] MEDS ORDERED: IPRATROPIUM BROMIDE HFA INHALER INH PRN (08:07)
[2021-12-27] MEDS: HYDROCODONE/ACETAMINOPHEN 7.5/325MG TAB PO PRN (08:40)
--- NOTE | 2021-12-27 08:41 | Gastrointestinal Consultation ---
Date of Consultation December 27, 2021 Assessment & Plan (1) Acute cholecystitis: 66 year old female admitted w/ pain, nausea/vomiting, imaging concerning for cholecystitis, elevated transaminases TB 1.9, AST 517, ALT 128, ALP 250 and normal lipase Hold coumadin Appreciate general surgery evaluation NPO for EUS +/- ERCP tomorrow Antiemetics PRN Analgesia PRN Agree with ABX Thank you for allowing us to participate in the care of this patient. Please call with any acute changes, questions or concerns. Please see addendum below with additional recommendation from my supervising physician. Supervising Physician Co-Signing Physician Notes I saw and evaluated the patient. We were consulted for evaluation of abdominal discomfort and elevated liver enzymes. Of note the patient does have imaging which seems most to suggest either cholecystitis or perhaps cholelithiasis. Physical examination No scleral icterus noted this morning Right upper quadrant tenderness Impression: Patient presents with abdominal discomfort with a significant elevation of her AST. She is presently under evaluation by cardiology and we are awaiting their input before consideration of endoscopic evaluation. Pending their recommendations we have tentatively made arrangements for EUS with possible ERCP on Sunday. Recommendations P.o. at midnight for possible EUS and ERCP on Sunday Continue broad-spectrum antibiotic coverage Consider obtaining a CPK given the AST elevation Await cardiology input, please call with any questions or concerns History of Present Illness Reason for Consultation: abd pain Requesting Physician: Christina Attending Physician: Jesus Vasquez MD History of Present Illness 66 year old female with history ofhyperlipidemia, COPD, history of coronary artery disease, status post multiple stents and CABG, status post aortic bioprosthetic valve replacement, chronic systolic CHF, atrial fibrillation, hypertension, history of CVA, depression, history of angioedema admitted w/ abdominal pain, acute onset about 24 hours ago. Pain is severe, upper abd and right sided. Associated with severe nausea, vomiting and diarrhea. Denies black or bloody stools/emesis. No fever, chills, CP, SOB. Tb 1.9, AST 517, ALT 128, ALKP 250 lipase 9 ABD US 2021: Findings are concerning for acute cholecystitis. Avila's sign was negative, correlation with history of pain medication is recommended. If uncertainty remains, nuclear medicine HIDA scan can be performed. Allergies Allergy/AdvReac Type Severity Reaction Status Date / Time clopidogrel [From Plavix] Allergy Severe facial Verified 12/26/21 19:01 swelling, itching ticagrelor [From Brilinta] Allergy Severe facial Verified 12/26/21 19:01 swelling, itching oxycodone Allergy Intermediate itching Verified 12/26/21 19:01 Home Medications Medication Instructions Recorded Confirmed Type atorvastatin 10 mg tablet 20 mg PO QPM 08/26/20 12/26/21 History fluoxetine 40 mg capsule 40 mg PO QAM 08/26/20 12/26/21 History ipratropium bromide 17 2 puff INHALATION QID 08/26/20 12/26/21 History mcg/actuation HFA aerosol inhaler nitroglycerin 0.4 mg sublingual 0.4 mg SUBLINGUAL Q5M PRN 08/26/20 12/26/21 History tablet (Nitrostat) sacubitril 97 mg-valsartan 103 mg 1 tab PO BID 08/26/20 12/26/21 History tablet (Entresto) warfarin 2.5 mg tablet See Rx Instructions .ROUTE 08/26/20 12/26/21 History .COMPLEX tab amlodipine 2.5 mg tablet 2.5 mg PO QAM 09/30/21 12/26/21 History famotidine 20 mg tablet 20 mg PO HS 09/30/21 12/26/21 History fluticasone furoate 100 1 inh INHALATION QAM 09/30/21 12/26/21 History mcg-vilanterol 25 mcg/dose inhalation powder (Breo Ellipta) mirtazapine 45 mg tablet 45 mg PO HS 09/30/21 12/26/21 History pantoprazole 40 mg tablet,delayed 40 mg PO BID 09/30/21 12/26/21 History release alendronate 70 mg tablet 70 mg PO WK 12/26/21 12/26/21 History aspirin 81 mg chewable tablet 81 mg PO DAILY 12/26/21 12/26/21 History buspirone 30 mg tablet 30 mg PO BID 12/26/21 12/26/21 History hydrocodone 7.5 mg-acetaminophen 1 tab PO Q8H PRN 12/26/21 12/26/21 History 325 mg tablet metoprolol succinate 25 mg 25 mg PO BID 12/26/21 12/26/21 History tablet,extended release 24 hr Patient History Medical History Anxiety Anxiety disorder Aphasia, mixed CAD (coronary artery disease) follows with Elton Lee PA-C. CHF (congestive heart failure) COPD (chronic obstructive pulmonary disease) CVA (cerebral vascular accident) 2004; dysphagia, some expressive/receptive aphasia, improved with speech therapy Depression Dysphagia GERD (gastroesophageal reflux disease) History of anesthesia reaction pt has some expressive aphasia r/t previous stroke, had difficult time explaining anesthesia problem. says she had difficulty breathing coming out of anesthesia in past. unable to elaborate beyond that. says occurence x 1 while living in [place]. History of myocardial infarction 1991 HLD (hyperlipidemia) HTN (hypertension) Osteoarthritis Osteoporosis Poor historian poor memory Throat fullness reason for EGD Surgical History H/O heart artery stent 5 stents (thinks last placed in 2019) History of cardiac catheterization multiple (believes most recent was in 2019 while living in [place]) History of heart valve replacement 09/2019 while living in [place] History of open heart surgery Sep 23, 2019 History of tonsillectomy History of wisdom tooth extraction Social History Smoking Status: Former smoker Tobacco Type: Cigarettes packs per day: 0.25; Smoking End Date: 1 year ago; Second Hand Exposure: No; Do You Dip or Chew Tobacco: No; Tobacco Cessation Education Requested by Patient: No Hx Alcohol Use: No Hx Substance Use: No Preferred Language: Serbian Communication Ability: Effective Visual Impairment: Limited Hearing Ability: Normal [employer] Required: No Beliefs That Will Affect Care: None marital status: / Current Living Situation: Alone current occupational status: disabled current occupation: on disability since 2004 Other Information That Helps Us Care for You: No Feels Safe at Home: Yes Safety Concerns: Feels Safe At This Time Assistive Devices: Denture - Upper, Denture - Lower and Glasses Review of Systems Review of Systems: All systems reviewed & are unremarkable except as noted in HPI & below Physical Exam Constitutional: WD/WN, vitals as above Neck: trachea midline, no thyromegaly Respiratory: normal respiratory effort, lungs clear to auscultation Cardiovascular: Rate/Rhythm: regular rate and regular rhythm Gastrointestinal (Abdomen): normal bowel sounds, soft, nontender, no hepatosplenomegaly Skin: no rashes, warm and dry Results & Data ([facility]) Vital Signs (Past 12 Hours) Vital Signs Temp Pulse Pulse Resp BP BP Pulse Ox 12/27/21 06:22 37.0 C 78 18 145/85 H 91 12/27/21 02:26 37.4 C 74 18 113/73 93 12/27/21 02:00 37.4 C 77 74 18 113/73 93 12/27/21 00:31 76 24 138/81 93 12/27/21 00:00 70 21 106/64 94 12/26/21 23:30 69 21 110/73 95 12/26/21 23:00 72 21 113/71 96 12/26/21 22:30 77 22 109/72 95 12/26/21 22:00 72 23 116/73 96 12/26/21 21:30 77 20 120/73 95 12/26/21 21:00 74 22 128/79 94 Laboratory Results 12/27/21 12/27/21 12/27/21 Range/Units 05:24 05:24 05:24 WBC (4.8-10.8) K/uL RBC (4.2-5.4) M/uL Hgb (12.0-16.0) g/dL Hct (37-47) % MCV (80-100) fL MCH (25-34) pg MCHC (32-36) g/dL RDW Std Deviation (36.4-46.3) fL RDW Coeff of Fredy (11.5-14.5) % Plt Count (130-400) K/uL MPV (7.4-10.4) fL Immature Gran % (Auto) % Neut % (Auto) % Lymph % (Auto) % [place] % (Auto) % Eos % (Auto) % Baso % (Auto) % Neut # (Auto) (1.4-6.5) K/uL Lymph # (Auto) (1.2-3.4) K/uL [place] # (Auto) (0.11-0.59) K/uL Eos # (Auto) (0-0.5) K/uL Baso # (Auto) (0-0.2) K/uL Immature Gran # (Auto) (0.00-0.02) K/uL PT 20.0 H (9.0-12.0) Seconds INR 1.9 H (0.9-1.1) APTT (21.0-31.0) Seconds PTT Ratio Sodium 137 (136-145) mmol/L Potassium 3.7 (3.5-5.1) mmol/L Chloride 105 (98-107) mmol/L Carbon Dioxide 24 (21-32) mmol/L Anion Gap 8 (3-11) BUN 10 (6-23) mg/dl Creatinine 0.85 (0.6-1.2) mg/dl Est Cr Clr Drug Dosing 55.8 ml/min Est GFR ( Amer) 81.6 ml/min Est GFR (Non-Af Amer) 70.4 ml/min BUN/Creatinine Ratio 11.8 (10-20) Glucose 111 H (70-99(Fasting)) mg/dl Calcium 8.3 L (8.5-10.1) mg/dl Magnesium 1.7 (1.7-2.4) mg/dl Total Bilirubin Pending (0.2-1.0) mg/dl Direct Bilirubin Pending (0-0.2) mg/dl AST Pending (13-39) U/L ALT Pending (7-52) U/L Alkaline Phosphatase Pending (34-104) U/L Troponin I High Sens 12.6 (0-14) pg/ml Total Protein Pending (6.0-8.3) gm/dl Albumin Pending (3.4-5.0) gm/dl Lipase (11-82) U/L SARS-CoV-2, RNA, NAAT (NEGATIVE) 12/27/21 12/26/21 12/26/21 Range/Units 05:24 20:41 19:38 WBC 9.83 (4.8-10.8) K/uL RBC 4.11 L (4.2-5.4) M/uL Hgb 12.1 (12.0-16.0) g/dL Hct 37.2 (37-47) % MCV 90.5 (80-100) fL MCH 29.4 (25-34) pg MCHC 32.5 (32-36) g/dL RDW Std Deviation 48.5 H (36.4-46.3) fL RDW Coeff of Fredy 14.5 (11.5-14.5) % Plt Count 250 (130-400) K/uL MPV 10.8 H (7.4-10.4) fL Immature Gran % (Auto) 0.2 % Neut % (Auto) 85.8 % Lymph % (Auto) 6.9 % [place] % (Auto) 7.1 % Eos % (Auto) 0.0 % Baso % (Auto) 0.0 % Neut # (Auto) 8.43 H (1.4-6.5) K/uL Lymph # (Auto) 0.68 L (1.2-3.4) K/uL [place] # (Auto) 0.70 H (0.11-0.59) K/uL Eos # (Auto) 0.00 (0-0.5) K/uL Baso # (Auto) 0.00 (0-0.2) K/uL Immature Gran # (Auto) 0.02 (0.00-0.02) K/uL PT (9.0-12.0) Seconds INR (0.9-1.1) APTT (21.0-31.0) Seconds PTT Ratio Sodium (136-145) mmol/L Potassium (3.5-5.1) mmol/L Chloride (98-107) mmol/L Carbon Dioxide (21-32) mmol/L Anion Gap (3-11) BUN (6-23) mg/dl Creatinine (0.6-1.2) mg/dl Est Cr Clr Drug Dosing ml/min Est GFR ( Amer) ml/min Est GFR (Non-Af Amer) ml/min BUN/Creatinine Ratio (10-20) Glucose (70-99(Fasting)) mg/dl Calcium (8.5-10.1) mg/dl Magnesium (1.7-2.4) mg/dl Total Bilirubin 1.9 H (0.2-1.0) mg/dl Direct Bilirubin 1.2 H (0-0.2) mg/dl AST 517 H (13-39) U/L ALT 128 H (7-52) U/L Alkaline Phosphatase 250 H (34-104) U/L Troponin I High Sens (0-14) pg/ml Total Protein 7.0 (6.0-8.3) gm/dl Albumin 4.2 (3.4-5.0) gm/dl Lipase (11-82) U/L SARS-CoV-2, RNA, NAAT NEGATIVE (NEGATIVE) 12/26/21 12/26/21 12/26/21 Range/Units 19:37 19:37 19:37 WBC 17.66 H (4.8-10.8) K/uL RBC 4.85 (4.2-5.4) M/uL Hgb 14.1 (12.0-16.0) g/dL Hct 43.3 (37-47) % MCV 89.3 (80-100) fL MCH 29.1 (25-34) pg MCHC 32.6 (32-36) g/dL RDW Std Deviation 47.4 H (36.4-46.3) fL RDW Coeff of Fredy 14.6 H (11.5-14.5) % Plt Count 306 (130-400) K/uL MPV 10.7 H (7.4-10.4) fL Immature Gran % (Auto) 0.2 % Neut % (Auto) 92.6 % Lymph % (Auto) 4.2 % [place] % (Auto) 2.8 % Eos % (Auto) 0.1 % Baso % (Auto) 0.1 % Neut # (Auto) 16.35 H (1.4-6.5) K/uL Lymph # (Auto) 0.75 L (1.2-3.4) K/uL [place] # (Auto) 0.49 (0.11-0.59) K/uL Eos # (Auto) 0.02 (0-0.5) K/uL Baso # (Auto) 0.01 (0-0.2) K/uL Immature Gran # (Auto) 0.04 H (0.00-0.02) K/uL PT 20.2 H (9.0-12.0) Seconds INR 2.0 H (0.9-1.1) APTT 31.7 H (21.0-31.0) Seconds PTT Ratio 1.2 Sodium 138 (136-145) mmol/L Potassium 3.7 (3.5-5.1) mmol/L Chloride 104 (98-107) mmol/L Carbon Dioxide 23 (21-32) mmol/L Anion Gap 11 (3-11) BUN 11 (6-23) mg/dl Creatinine 0.77 (0.6-1.2) mg/dl Est Cr Clr Drug Dosing 62.2 ml/min Est GFR ( Amer) 92.0 ml/min Est GFR (Non-Af Amer) 79.3 ml/min BUN/Creatinine Ratio 14.3 (10-20) Glucose 94 (70-99(Fasting)) mg/dl Calcium 9.2 (8.5-10.1) mg/dl Magnesium (1.7-2.4) mg/dl Total Bilirubin (0.2-1.0) mg/dl Direct Bilirubin (0-0.2) mg/dl AST (13-39) U/L ALT (7-52) U/L Alkaline Phosphatase (34-104) U/L Troponin I High Sens (0-14) pg/ml Total Protein (6.0-8.3) gm/dl Albumin (3.4-5.0) gm/dl Lipase 9 L (11-82) U/L SARS-CoV-2, RNA, NAAT (NEGATIVE) 12/26/21 Range/Units 19:37 WBC (4.8-10.8) K/uL RBC (4.2-5.4) M/uL Hgb (12.0-16.0) g/dL Hct (37-47) % MCV (80-100) fL MCH (25-34) pg MCHC (32-36) g/dL RDW Std Deviation (36.4-46.3) fL RDW Coeff of Fredy (11.5-14.5) % Plt Count (130-400) K/uL MPV (7.4-10.4) fL Immature Gran % (Auto) % Neut % (Auto) % Lymph % (Auto) % [place] % (Auto) % Eos % (Auto) % Baso % (Auto) % Neut # (Auto) (1.4-6.5) K/uL Lymph # (Auto) (1.2-3.4) K/uL [place] # (Auto) (0.11-0.59) K/uL Eos # (Auto) (0-0.5) K/uL Baso # (Auto) (0-0.2) K/uL Immature Gran # (Auto) (0.00-0.02) K/uL PT (9.0-12.0) Seconds INR (0.9-1.1) APTT (21.0-31.0) Seconds PTT Ratio Sodium (136-145) mmol/L Potassium (3.5-5.1) mmol/L Chloride (98-107) mmol/L Carbon Dioxide (21-32) mmol/L Anion Gap (3-11) BUN (6-23) mg/dl Creatinine (0.6-1.2) mg/dl Est Cr Clr Drug Dosing ml/min Est GFR ( Amer) ml/min Est GFR (Non-Af Amer) ml/min BUN/Creatinine Ratio (10-20) Glucose (70-99(Fasting)) mg/dl Calcium (8.5-10.1) mg/dl Magnesium (1.7-2.4) mg/dl Total Bilirubin (0.2-1.0) mg/dl Direct Bilirubin (0-0.2) mg/dl AST (13-39) U/L ALT (7-52) U/L Alkaline Phosphatase (34-104) U/L Troponin I High Sens 8.9 (0-14) pg/ml Total Protein (6.0-8.3) gm/dl Albumin (3.4-5.0) gm/dl Lipase (11-82) U/L SARS-CoV-2, RNA, NAAT (NEGATIVE)
[2021-12-27] MEDS ORDERED: niCARdipine HCL INJ 2.5 MG/ML 10 ML AMP ONE (09:00)
[2021-12-27] MEDS ORDERED: HEPARIN (PORCINE) 1000 UNIT/ML 10 ML (CATH LAB USE ONLY) ONE (09:00)
[2021-12-27] MEDS ORDERED: IPRATROPIUM BROMIDE HFA INHALER INH SCH (09:00)
[2021-12-27] MEDS ORDERED: fentaNYL citrate 100 MCG/2 ML VIAL ONE (09:00)
[2021-12-27] MEDS ORDERED: NITROGLYCERIN/D5W 100MCG/ML 20ML SYR ONE (09:01)
[2021-12-27] MEDS ORDERED: LIDOCAINE 1% LOCAL 20 ML VIAL ONE (09:01)
[2021-12-27] MEDS ORDERED: MIDAZOLAM HCL 1 MG/ML 2ML VIAL ONE (09:01)
[2021-12-27 09:19] LABS: Albumin Level 3.4 gm/dl (3.4-5.0); Bilirubin Direct 2.4 mg/dl (0-0.2); Bilirubin,Total 3.5 mg/dl (0.2-1.0); Total Protein 5.9 gm/dl (6.0-8.3)
--- NOTE | 2021-12-27 09:19 | Hospitalist Progress Note ---
Date of Service December 27, 2021 Assessment & Plan (1) Acute cholecystitis: Plan: This is a 66-year-old female who presents with right upper quadrant abdominal pain radiating to the chest, questionable near syncope and found to have cholecystitis. 1. Cholecystitis, elevated liver function tests: n.p.o., gentle fluids, IV morphine p.r.n., IV Zosyn. MRCP - IMPRESSION: Findings compatible with acute cholecystitis. No gallstones or choledocholithias is are seen. Surgery consulted - npo, cont. zosyn, hold coumadin, plan for cholecystectomy, also want to further discuss with GI and cardiology given her significant cardiac history and presyncopal episode Gastrointestinal consult - plan for EUS/ ERCP tomorrow Cardiology eval -obtained chest CTA and abdomen pelvis CTA, negative for any aortic dissection Echocardiogram also obtained Normal LV chamber size and the basal and mid levels with apex aneurysmal in appearance. Normal wall thickness with apical wall thinning along with apical dyskinesis. Otherwise normal wall motion. Mildly reduced LV systolic function EF 45 to 50%. Grade 2 diastolic dysfunction. Bioprosthetic aortic valve replacement is present without stenosis or regurg. Calcified mitral apparatus with moderate mitral regurg. Mild tricuspid regurg. Mildly reduced LV systolic function by TAPSE. Pulmonary hypertension is not present. Okay to hold warfarin from a cardiac standpoint but then will require bridging after invasive procedures are completed. Aspirin must not be interrupted given history of multiple PCI's. Recommend continuing metoprolol throughout the perioperative period Entresto may be held if necessary. Closely monitor in the med-telemetry. 2. Questionable near syncope: The patient has significant cardiac history. follow serial enzymes, echocardiogram. Monitor in the telemetry and consult cardiology for preoperative clearance - as above. 3. History of coronary artery disease, status post multiple stents, status post coronary artery bypass grafting: On aspirin, , statin and metoprolol succinate. 4. History of paroxysmal atrial fibrillation: Rate controlled with metoprolol. Holding Coumadin for procedures. Give small dose IV vit. K, as plan for surgery tmrw. Monitor in med-telemetry. 5. History of chronic systolic congestive heart failure: On recent echocardiogram, ejection fraction was 50%. Continue Entresto, metoprolol succinate. We will monitor for any volume overload, getting gentle fluids. 6. History of embolic cerebrovascular accident, history of aphasia: Currently, speech is somewhat pressured. Continue her aspirin and statin. Holding Coumadin for procedures. 7. Gastroesophageal reflux disease: Continue Protonix.She also recently had esophageal dilatation 8. Depression: Continue mirtazapine, fluoxetine and buspirone. 9. Hyperlipidemia: On statin. 10. Hypertension: Amlodipine, metoprolol and Entresto. We will monitor the blood pressure. 11. History of chronic obstructive pulmonary disease: Currently not smoking. Continue home inhalers. 12. Status post bioprosthetic aortic valve replacement. 13. Deep venous thrombosis prophylaxis: sequential compression devices. DISPOSITION: Closely monitor in the [place]-tele. PT/OT prior to discharge. Social service to help with discharge planning. Admission and Anticipated Discharge Date Admission Date: December 26, 2021 Subjective Patient seen in follow-up of her abdominal/back pain, imaging consistent with cholecystitis Currently patient is laying in bed, appears in no acute distress, however appears also very tired, she is answering questions appropriately however slowly and she is not moving very much Currently denies any fevers chills chest pain, or difficulty breathing Review of Systems Review of Systems: All systems reviewed & are unremarkable except as noted in Subjective Physical Exam Physical Exam: GENERAL: The patient is of moderate build, not in acute distress. HEENT: NC/AT. EOMI. Pupils equal, round and reactive to light. Oral mucosa moist. NECK: No JVD, no neck masses. CARDIOVASCULAR: S1 and S2 heard. Regular rate and rhythm. No murmur, no gallop. RESPIRATORY: Normal AP diameter. CTAB. ABDOMEN: Mild right upper quadrant tenderness. No guarding, no rigidity, no distention. NEURO: Drowsy but able to answer questions appropriately.speaking slowly. No facial droop. Nonfocal. moves extremities. EXTREMITIES: No edema, no erythema. Results & Data Results & Data ([facility]) Vital Signs (Past 12 Hours) Vital Signs Temp Pulse Pulse Resp BP BP Pulse Ox 12/27/21 08:15 66 12/27/21 06:22 37.0 C 78 18 145/85 H 91 12/27/21 02:26 37.4 C 74 18 113/73 93 12/27/21 02:00 37.4 C 77 74 18 113/73 93 12/27/21 00:31 76 24 138/81 93 12/27/21 00:00 70 21 106/64 94 12/26/21 23:30 69 21 110/73 95 12/26/21 23:00 72 21 113/71 96 12/26/21 22:30 77 22 109/72 95 12/26/21 22:00 72 23 116/73 96 12/26/21 21:30 77 20 120/73 95 Laboratory Results 12/27/21 12/27/21 12/27/21 Range/Units 05:24 05:24 05:24 WBC (4.8-10.8) K/uL RBC (4.2-5.4) M/uL Hgb (12.0-16.0) g/dL Hct (37-47) % MCV (80-100) fL MCH (25-34) pg MCHC (32-36) g/dL RDW Std Deviation (36.4-46.3) fL RDW Coeff of Fredy (11.5-14.5) % Plt Count (130-400) K/uL MPV (7.4-10.4) fL Immature Gran % (Auto) % Neut % (Auto) % Lymph % (Auto) % [place] % (Auto) % Eos % (Auto) % Baso % (Auto) % Neut # (Auto) (1.4-6.5) K/uL Lymph # (Auto) (1.2-3.4) K/uL [place] # (Auto) (0.11-0.59) K/uL Eos # (Auto) (0-0.5) K/uL Baso # (Auto) (0-0.2) K/uL Immature Gran # (Auto) (0.00-0.02) K/uL PT 20.0 H (9.0-12.0) Seconds INR 1.9 H (0.9-1.1) APTT (21.0-31.0) Seconds PTT Ratio Sodium 137 (136-145) mmol/L Potassium 3.7 (3.5-5.1) mmol/L Chloride 105 (98-107) mmol/L Carbon Dioxide 24 (21-32) mmol/L Anion Gap 8 (3-11) BUN 10 (6-23) mg/dl Creatinine 0.85 (0.6-1.2) mg/dl Est Cr Clr Drug Dosing 55.8 ml/min Est GFR ( Amer) 81.6 ml/min Est GFR (Non-Af Amer) 70.4 ml/min BUN/Creatinine Ratio 11.8 (10-20) Glucose 111 H (70-99(Fasting)) mg/dl Calcium 8.3 L (8.5-10.1) mg/dl Magnesium 1.7 (1.7-2.4) mg/dl Total Bilirubin 3.5 H D (0.2-1.0) mg/dl Direct Bilirubin 2.4 H (0-0.2) mg/dl AST 1000 H (13-39) U/L ALT 429 H (7-52) U/L Alkaline Phosphatase 311 H (34-104) U/L Troponin I High Sens 12.6 (0-14) pg/ml Total Protein 5.9 L (6.0-8.3) gm/dl Albumin 3.4 (3.4-5.0) gm/dl Lipase (11-82) U/L SARS-CoV-2, RNA, NAAT (NEGATIVE) 12/27/21 12/26/21 12/26/21 Range/Units 05:24 20:41 19:38 WBC 9.83 (4.8-10.8) K/uL RBC 4.11 L (4.2-5.4) M/uL Hgb 12.1 (12.0-16.0) g/dL Hct 37.2 (37-47) % MCV 90.5 (80-100) fL MCH 29.4 (25-34) pg MCHC 32.5 (32-36) g/dL RDW Std Deviation 48.5 H (36.4-46.3) fL RDW Coeff of Fredy 14.5 (11.5-14.5) % Plt Count 250 (130-400) K/uL MPV 10.8 H (7.4-10.4) fL Immature Gran % (Auto) 0.2 % Neut % (Auto) 85.8 % Lymph % (Auto) 6.9 % [place] % (Auto) 7.1 % Eos % (Auto) 0.0 % Baso % (Auto) 0.0 % Neut # (Auto) 8.43 H (1.4-6.5) K/uL Lymph # (Auto) 0.68 L (1.2-3.4) K/uL [place]oughton # (Auto) 0.70 H (0.11-0.59) K/uL Eos # (Auto) 0.00 (0-0.5) K/uL Baso # (Auto) 0.00 (0-0.2) K/uL Immature Gran # (Auto) 0.02 (0.00-0.02) K/uL PT (9.0-12.0) Seconds INR (0.9-1.1) APTT (21.0-31.0) Seconds PTT Ratio Sodium (136-145) mmol/L Potassium (3.5-5.1) mmol/L Chloride (98-107) mmol/L Carbon Dioxide (21-32) mmol/L Anion Gap (3-11) BUN (6-23) mg/dl Creatinine (0.6-1.2) mg/dl Est Cr Clr Drug Dosing ml/min Est GFR ( Amer) ml/min Est GFR (Non-Af Amer) ml/min BUN/Creatinine Ratio (10-20) Glucose (70-99(Fasting)) mg/dl Calcium (8.5-10.1) mg/dl Magnesium (1.7-2.4) mg/dl Total Bilirubin 1.9 H (0.2-1.0) mg/dl Direct Bilirubin 1.2 H (0-0.2) mg/dl AST 517 H (13-39) U/L ALT 128 H (7-52) U/L Alkaline Phosphatase 250 H (34-104) U/L Troponin I High Sens (0-14) pg/ml Total Protein 7.0 (6.0-8.3) gm/dl Albumin 4.2 (3.4-5.0) gm/dl Lipase (11-82) U/L SARS-CoV-2, RNA, NAAT NEGATIVE (NEGATIVE) 12/26/21 12/26/21 12/26/21 Range/Units 19:37 19:37 19:37 WBC 17.66 H (4.8-10.8) K/uL RBC 4.85 (4.2-5.4) M/uL Hgb 14.1 (12.0-16.0) g/dL Hct 43.3 (37-47) % MCV 89.3 (80-100) fL MCH 29.1 (25-34) pg MCHC 32.6 (32-36) g/dL RDW Std Deviation 47.4 H (36.4-46.3) fL RDW Coeff of Fredy 14.6 H (11.5-14.5) % Plt Count 306 (130-400) K/uL MPV 10.7 H (7.4-10.4) fL Immature Gran % (Auto) 0.2 % Neut % (Auto) 92.6 % Lymph % (Auto) 4.2 % [place] % (Auto) 2.8 % Eos % (Auto) 0.1 % Baso % (Auto) 0.1 % Neut # (Auto) 16.35 H (1.4-6.5) K/uL Lymph # (Auto) 0.75 L (1.2-3.4) K/uL [place] # (Auto) 0.49 (0.11-0.59) K/uL Eos # (Auto) 0.02 (0-0.5) K/uL Baso # (Auto) 0.01 (0-0.2) K/uL Immature Gran # (Auto) 0.04 H (0.00-0.02) K/uL PT 20.2 H (9.0-12.0) Seconds INR 2.0 H (0.9-1.1) APTT 31.7 H (21.0-31.0) Seconds PTT Ratio 1.2 Sodium 138 (136-145) mmol/L Potassium 3.7 (3.5-5.1) mmol/L Chloride 104 (98-107) mmol/L Carbon Dioxide 23 (21-32) mmol/L Anion Gap 11 (3-11) BUN 11 (6-23) mg/dl Creatinine 0.77 (0.6-1.2) mg/dl Est Cr Clr Drug Dosing 62.2 ml/min Est GFR ( Amer) 92.0 ml/min Est GFR (Non-Af Amer) 79.3 ml/min BUN/Creatinine Ratio 14.3 (10-20) Glucose 94 (70-99(Fasting)) mg/dl Calcium 9.2 (8.5-10.1) mg/dl Magnesium (1.7-2.4) mg/dl Total Bilirubin (0.2-1.0) mg/dl Direct Bilirubin (0-0.2) mg/dl AST (13-39) U/L ALT (7-52) U/L Alkaline Phosphatase (34-104) U/L Troponin I High Sens (0-14) pg/ml Total Protein (6.0-8.3) gm/dl Albumin (3.4-5.0) gm/dl Lipase 9 L (11-82) U/L SARS-CoV-2, RNA, NAAT (NEGATIVE) 12/26/21 Range/Units 19:37 WBC (4.8-10.8) K/uL RBC (4.2-5.4) M/uL Hgb (12.0-16.0) g/dL Hct (37-47) % MCV (80-100) fL MCH (25-34) pg MCHC (32-36) g/dL RDW Std Deviation (36.4-46.3) fL RDW Coeff of Fredy (11.5-14.5) % Plt Count (130-400) K/uL MPV (7.4-10.4) fL Immature Gran % (Auto) % Neut % (Auto) % Lymph % (Auto) % [place] % (Auto) % Eos % (Auto) % Baso % (Auto) % Neut # (Auto) (1.4-6.5) K/uL Lymph # (Auto) (1.2-3.4) K/uL [place] # (Auto) (0.11-0.59) K/uL Eos # (Auto) (0-0.5) K/uL Baso # (Auto) (0-0.2) K/uL Immature Gran # (Auto) (0.00-0.02) K/uL PT (9.0-12.0) Seconds INR (0.9-1.1) APTT (21.0-31.0) Seconds PTT Ratio Sodium (136-145) mmol/L Potassium (3.5-5.1) mmol/L Chloride (98-107) mmol/L Carbon Dioxide (21-32) mmol/L Anion Gap (3-11) BUN (6-23) mg/dl Creatinine (0.6-1.2) mg/dl Est Cr Clr Drug Dosing ml/min Est GFR ( Amer) ml/min Est GFR (Non-Af Amer) ml/min BUN/Creatinine Ratio (10-20) Glucose (70-99(Fasting)) mg/dl Calcium (8.5-10.1) mg/dl Magnesium (1.7-2.4) mg/dl Total Bilirubin (0.2-1.0) mg/dl Direct Bilirubin (0-0.2) mg/dl AST (13-39) U/L ALT (7-52) U/L Alkaline Phosphatase (34-104) U/L Troponin I High Sens 8.9 (0-14) pg/ml Total Protein (6.0-8.3) gm/dl Albumin (3.4-5.0) gm/dl Lipase (11-82) U/L SARS-CoV-2, RNA, NAAT (NEGATIVE) Diagnostic Findings chest CTA FINDINGS: Lungs and pleura: Diffuse centrilobular emphysema is seen most prominent in the upper lobes. Atelectasis versus scarring is seen in the left greater than right lower lobe. Heart and pericardium: There is mild cardiomegaly without evidence of pericardial effusion. Vessels: Severe atherosclerotic changes in the aorta and coronary arteries. Aortic valvular replacement is seen. No evidence of aortic dissection. Mediastinum and wu: Subcentimeter lymph nodes are seen. There is patulous dilation of the esophagus. Chest wall and lower neck: Unremarkable. Abdomen: For findings below the diaphragm, please refer to CT of the abdomen dated the same. Bones: Degenerative changes in the thoracic spine. IMPRESSION: 1. No acute abnormality and in particular no evidence of acute aortic injury. 2. Emphysema and scarring and patulous dilation of the esophagus. This is nonspecific but can be seen in scleroderma. Abd./pelvis CTA FINDINGS: Lower chest: For findings above the diaphragm, please see CT chest performed same day. Liver: Unremarkable. No focal lesions are seen. Gallbladder and biliary tree: Prominent gallbladder wall thickening measuring approximately 10 mm. No intra- or extrahepatic biliary ductal dilation. Pancreas: Unremarkable, no focal lesions. Spleen: Unremarkable. Adrenals: Unremarkable. Kidneys and ureters: Multiple left cysts are seen. Bladder: Unremarkable. Reproductive organs: Unremarkable. Bowel: Unremarkable appearance of the bowel. The appendix is normal. There is a small hiatal hernia. Lymph nodes Retroperitoneal: Unremarkable. Mesenteric: Unremarkable. Pelvic: Unremarkable. Peritoneum: Normal. Abdominal wall: Unremarkable. Bones: Degenerative changes in the visualized spine. CT angiogram: The abdominal aortic contours appear intact without evidence of aneurysmal dilatation and/or dissection. No significant atherosclerosis is seen. The origins of the celiac axis, superior mesenteric, inferior mesenteric and bilateral renal arteries are patent. IMPRESSION: Prominent gallbladder wall thickening concerning for acute cholecystitis. Otherwise, no acute abnormality. Atherosclerotic disease without significant stenosis. The origins of the great vessels are patent. Medications Administered Current Inpatient Medications Acetaminophen (Acetaminophen 325 Mg Tab) 650 mg PO Q4H PRN PRN Reason: Pain or Fever Stop: 01/26/22 01:35 Hydrocodone Bitart/Acetaminophen (Hydrocodone/Acetaminophen 7.5/325mg Tab) 1 tab PO Q8H PRN PRN Reason: Pain Stop: 01/10/22 01:35 Last Admin: 12/27/21 08:40 Dose: 1 tab Documented by: Amlodipine Besylate (Amlodipine Besylate 5 Mg Tab) 2.5 mg PO QAM [facility] Stop: 01/26/22 08:59 Aspirin (Aspirin 81 Mg Chew) 81 mg PO DAILY BELLO Stop: 01/26/22 08:59 Atorvastatin Calcium (Atorvastatin 20 Mg Tab) 20 mg PO QPM BELLO Stop: 01/26/22 20:59 Buspirone HCl (Buspirone 15 Mg Tab) 30 mg PO BID BELLO Stop: 01/26/22 08:59 Famotidine (Famotidine 20 Mg Tab) 20 mg PO HS [facility] Stop: 01/26/22 20:59 Fluoxetine HCl (Fluoxetine Hcl 20 Mg Cap) 40 mg PO QAM [facility]LL[facility] Stop: 01/26/22 08:59 Fluticasone/Vilanterol (Fluticasone/Vilanterol 100/25mcg 14 Puffs/Inhaler) [facility] puffs [facility] Stop: 01/26/22 08:59 Piperacillin Sod/Tazobactam (Sod 3.375 gm/ Dextrose) 115 mls @ 28.75 mls/hr IV Q8H [facility]; Protocol Stop: 01/06/22 03:59 Last Infusion: 12/27/21 06:27 Dose: Infused Documented by: Dextrose/Sodium Chloride (D5w And 1/2nss) 1,000 mls @ 75 mls/hr IV .[id number] [facility] Stop: 01/26/22 01:35 Last Admin: 12/27/21 02:26 Dose: 75 mls/hr Documented by: Ipratropium Nixon (Ipratropium Nixon Hfa Inhaler) 2 puffs INH QID PRN PRN Reason: Shortness Of Breath Or Wheezing Stop: 01/26/22 08:59 Metoprolol Succinate (Metoprolol Succ 25mg Ext Rel Tab) 25 mg PO BID [facility] Stop: 01/26/22 08:59 Mirtazapine (Mirtazapine Soltab 15 Mg) 45 mg PO HS [facility] Stop: 01/26/22 20:59 Miscellaneous Information (Piperacill/Tazobac Consult Active) 1 ea N/A UD PRN PRN Reason: Consult Stop: 01/26/22 01:35 Morphine Sulfate (Morphine Sulfate 4 Mg/Ml 1 Ml Carp\Vial) 3 mg IV Q4H PRN PRN Reason: Pain Stop: 01/10/22 01:35 Nitroglycerin (Nitroglycerin Sl 0.4 Mg/Tab Tab) 0.4 mg SL Q5M PRN PRN Reason: Chest Pain Stop: 01/26/22 01:35 Ondansetron HCl (Ondansetron Inj 2 Mg/Ml 2 Ml Vial) 4 mg IV Q6H PRN PRN Reason: Nausea Stop: 01/26/22 01:35 Pantoprazole Sodium (Pantoprazole 40 Mg Tab) 40 mg PO BID [facility] Stop: 01/26/22 08:59 Sacubitril/Valsartan (Valsartan/Sacubitril 103/97mg Tab) 1 tab PO BID [facility] Stop: 01/26/22 08:59
--- NOTE | 2021-12-27 09:30 | Cardiology Consultation ---
Date of Consultation December 27, 2021 Assessment & Plan (1) Back pain: (2) Shoulder pain: (3) Acute cholecystitis: (4) GERD (gastroesophageal reflux disease): (5) Anxiety disorder: (6) Diffuse myofascial pain syndrome: (7) H/O heart artery stent: (8) History of open heart surgery: (9) HTN (hypertension): (10) CVA (cerebral vascular accident): Given her extensive cardiovascular history and her complaints of abdominal/back pain my initial concern was for dissection of the abdominal ao rta. Stat CTA was performed which showed no dissection. Chest discomfort/shoulder discomfort was completely reproducible on examination. Troponin was negative EKG with nonspecific changes. 2D echocardiogram with no new wall motion abnormalities but had not an aneurysmal appearing apex. Small thrombus possible. Patient already on lifelong warfarin and should be continued. She will require invasive GI procedures. In terms of preop risk assessment she was counseled that I place her as a moderate to high risk for any adverse perioperative cardiovascular event with her risk being approximately 5%. She was further counseled that no further cardiac testing or invention would further lower that risk. She states that she understands, she is accepting of that risk and would wish to proceed if deemed necessary. No need to delay from a cardiac standpoint. Okay to hold warfarin from a cardiac standpoint but then will require bridging after invasive procedures are completed. Aspirin must not be interrupted given history of multiple PCI's. Recommend continuing metoprolol throughout the perioperative period Entresto may be held if necessary. History of Present Illness Reason for Consultation: Chest pain Requesting Physician: Dr. Rivera Attending Physician: Jesus Vasquez MD History of Present Illness The patient is a very medically complex 66-year-old woman who presented to [facility] on 12/26/2021 with a multitude of complaints. She states that she was in her normal state of health on the day of presentation until she was sitting on her couch and suddenly developed severe right shoulder and upper right chest pain. She is unable to quantify it simply stating it was the worst pain of her life. This was also associated with significant abdominal and low back pain. She was able to describe the low back pain as a tearing sensation. Upon arrival to the emergency department her troponins were negative and EKG showed nonspecific changes compared to previous. 2D echocardiogram was performed. Also found to have significantly abnormal LFTs. Allergies Allergy/AdvReac Type Severity Reaction Status Date / Time clopidogrel [From Plavix] Allergy Severe facial Verified 12/26/21 19:01 swelling, itching ticagrelor [From Brilinta] Allergy Severe facial Verified 12/26/21 19:01 swelling, itching oxycodone Allergy Intermediate itching Verified 12/26/21 19:01 Home Medications Medication Instructions Recorded Confirmed Type atorvastatin 10 mg tablet 20 mg PO QPM 08/26/20 12/26/21 History fluoxetine 40 mg capsule 40 mg PO QAM 08/26/20 12/26/21 History ipratropium bromide 17 2 puff INHALATION QID 08/26/20 12/26/21 History mcg/actuation HFA aerosol inhaler nitroglycerin 0.4 mg sublingual 0.4 mg SUBLINGUAL Q5M PRN 08/26/20 12/26/21 History tablet (Nitrostat) sacubitril 97 mg-valsartan 103 mg 1 tab PO BID 08/26/20 12/26/21 History tablet (Entresto) warfarin 2.5 mg tablet See Rx Instructions .ROUTE 08/26/20 12/26/21 History .COMPLEX tab amlodipine 2.5 mg tablet 2.5 mg PO QAM 09/30/21 12/26/21 History famotidine 20 mg tablet 20 mg PO HS 09/30/21 12/26/21 History fluticasone furoate 100 1 inh INHALATION QAM 09/30/21 12/26/21 History mcg-vilanterol 25 mcg/dose inhalation powder (Breo Ellipta) mirtazapine 45 mg tablet 45 mg PO HS 09/30/21 12/26/21 History pantoprazole 40 mg tablet,delayed 40 mg PO BID 09/30/21 12/26/21 History release alendronate 70 mg tablet 70 mg PO WK 12/26/21 12/26/21 History aspirin 81 mg chewable tablet 81 mg PO DAILY 12/26/21 12/26/21 History buspirone 30 mg tablet 30 mg PO BID 12/26/21 12/26/21 History hydrocodone 7.5 mg-acetaminophen 1 tab PO Q8H PRN 12/26/21 12/26/21 History 325 mg tablet metoprolol succinate 25 mg 25 mg PO BID 12/26/21 12/26/21 History tablet,extended release 24 hr Patient History Medical History Anxiety Anxiety disorder Aphasia, mixed CAD (coronary artery disease) follows with Elton Lee PA-C. CHF (congestive heart failure) COPD (chronic obstructive pulmonary disease) CVA (cerebral vascular accident) 2004; dysphagia, some expressive/receptive aphasia, improved with speech therapy Depression Dysphagia GERD (gastroesophageal reflux disease) History of anesthesia reaction pt has some expressive aphasia r/t previous stroke, had difficult time explaining anesthesia problem. says she had difficulty breathing coming out of anesthesia in past. unable to elaborate beyond that. says occurence x 1 while living in [place]. History of myocardial infarction 1991 HLD (hyperlipidemia) HTN (hypertension) Osteoarthritis Osteoporosis Poor historian poor memory Throat fullness reason for EGD Surgical History H/O heart artery stent 5 stents (thinks last placed in 2019) History of cardiac catheterization multiple (believes most recent was in 2019 while living in [place]) History of heart valve replacement 09/2019 while living in [place] History of open heart surgery Sep 23, 2019 History of tonsillectomy History of wisdom tooth extraction Social History Smoking Status: Former smoker Tobacco Type: Cigarettes packs per day: 0.25; Smoking End Date: 1 year ago; Second Hand Exposure: No; Do You Dip or Chew Tobacco: No; Tobacco Cessation Education Requested by Patient: No Hx Alcohol Use: No Hx Substance Use: No Preferred Language: Citizen Of [place] Communication Ability: Effective Visual Impairment: Limited Hearing Ability: Normal Miner Operator Required: No Beliefs That Will Affect Care: None marital status: / Current Living Situation: Alone current occupational status: disabled current occupation: on disability since 2004 Other Information That Helps Us Care for You: No Feels Safe at Home: Yes Safety Concerns: Feels Safe At This Time Assistive Devices: Denture - Upper, Denture - Lower and Glasses Review of Systems Review of Systems: All systems reviewed & are unremarkable except as noted in HPI & below Physical Exam Physical Exam: General: Awake, alert and oriented x 3. No acute distress. HEENT: Normocephalic, atraumatic. Pupils equal, round and reactive to light and accommodation. Extraocular muscles are intact. Anicteric sclera. Moist mucous membranes. Neck: No JVD. No bruit. Cardiovascular: Regular. Positive S-4. Normal S-1 and S-2. No S-3. No murmurs or rubs. Pulmonary: Clear to auscultation B/L. No rales, rhonchi or wheezing Abdomen: Bowel sounds x 4, soft. Diffusely tender but no bruit Extremities: No clubbing, cyanosis or edema. +2 pedal pulses bilaterally. Skin: Warm and dry. Musculoskeletal: Right shoulder and right pectoral pain reproduced upon slight palpitation Results & Data ([facility]) Vital Signs (Past 12 Hours) Vital Signs Temp Pulse Pulse Resp BP BP Pulse Ox 12/27/21 06:22 37.0 C 78 18 145/85 H 91 12/27/21 02:26 37.4 C 74 18 113/73 93 12/27/21 02:00 37.4 C 77 74 18 113/73 93 12/27/21 00:31 76 24 138/81 93 12/27/21 00:00 70 21 106/64 94 12/26/21 23:30 69 21 110/73 95 12/26/21 23:00 72 21 113/71 96 12/26/21 22:30 77 22 109/72 95 12/26/21 22:00 72 23 116/73 96 12/26/21 21:30 77 20 120/73 95 12/26/21 21:00 74 22 128/79 94
[2021-12-27] MEDS ORDERED: OPTIRAY 320 125ml IV ONE (09:42)
--- NOTE | 2021-12-27 09:59 | CT Scan Report ---
CT angio abdomen pelvis w con CLINICAL HISTORY: back pain TECHNIQUE: Multidetector row helical CT of the abdomen and pelvis was performed, following intravenou s administration of iodinated contrast. No oral contrast was administered. Automated dose lowering te chniques and/or adjustment according to patient size were utilized for this exam. Coronal and sagitta l reformations were obtained. MIP and 3D volume rendered reconstructions were obtained. Comparison: Comparison is made to gallbladder ultrasound 12/26/2021 FINDINGS: Lower chest: For findings above the diaphragm, please see CT chest performed same day. Liver: Unremarkable. No focal lesions are seen. Gallbladder and biliary tree: Prominent gallbladder wall thickening measuring approximately 10 mm. No intra- or extrahepatic biliary ductal dilation. Pancreas: Unremarkable, no focal lesions. Spleen: Unremarkable. Adrenals: Unremarkable. Kidneys and ureters: Multiple left cysts are seen. Bladder: Unremarkable. Reproductive organs: Unremarkable. Bowel: Unremarkable appearance of the bowel. The appendix is normal. There is a small hiatal hernia. Lymph nodes Retroperitoneal: Unremarkable. Mesenteric: Unremarkable. Pelvic: Unremarkable. Peritoneum: Normal. Abdominal wall: Unremarkable. Bones: Degenerative changes in the visualized spine. CT angiogram: The abdominal aortic contours appear intact without evidence of aneurysmal dilatation a nd/or dissection. No significant atherosclerosis is seen. The origins of the celiac axis, superior mesenteric, inferior mesenteric and bilateral renal arteries are patent. IMPRESSION: Prominent gallbladder wall thickening concerning for acute cholecystitis. Otherwise, no acute abnorma lity. Atherosclerotic disease without significant stenosis. The origins of the great vessels are white nt. ACT 112: Negative or not required by law. Electronically signed by: Yemi Kirby M.D. 12/27/2021 9:57 AM
--- NOTE | 2021-12-27 10:04 | Electrocardiogram Report ---
Test Reason : Blood Pressure : / mmHG Vent. Rate : 065 BPM Atrial Rate : 065 BPM P-R Int : 160 ms QRS Dur : 096 ms QT Int : 422 ms P-R-T Axes : 090 -02 071 degrees QTc Int : 438 ms Poor data quality, interpretation may be adversely affected Normal sinus rhythm Poor R wave progression, consider anterior PR vs. lead placement vs. LVH Abnormal ECG When compared with ECG of 17-MAR-2011 06:56, Nonspecific T wave abnormality, worse in Anterolateral leads Confirmed by Karlo Worthington ([id number]) on 12/27/2021 10:03:50 AM Referred By: REFERRED SELF Confirmed By:True Worthington
--- NOTE | 2021-12-27 10:09 | CT Scan Report ---
CT angio chest dissec wo/w con CLINICAL HISTORY: back pain TECHNIQUE: Multidetector row helical CT of the chest was performed before and after injection of IV c ontrast. Coronal and sagittal reformations were obtained. Automated dose lowering techniques and/or a djustment according to patient size were utilized for this exam. CT DOSE: 1044.50 mGy.cm Comparison: None available at the time of this dictation. FINDINGS: Lungs and pleura: Diffuse centrilobular emphysema is seen most prominent in the upper lobes. Atelecta sis versus scarring is seen in the left greater than right lower lobe. Heart and pericardium: There is mild cardiomegaly without evidence of pericardial effusion. Vessels: Severe atherosclerotic changes in the aorta and coronary arteries. Aortic valvular replaceme nt is seen. No evidence of aortic dissection. Mediastinum and wu: Subcentimeter lymph nodes are seen. There is patulous dilation of the esophagus . Chest wall and lower neck: Unremarkable. Abdomen: For findings below the diaphragm, please refer to CT of the abdomen dated the same. Bones: Degenerative changes in the thoracic spine. IMPRESSION: 1. No acute abnormality and in particular no evidence of acute aortic injury. 2. Emphysema and scarring and patulous dilation of the esophagus. This is nonspecific but can be see n in scleroderma. ACT 112: Negative or not required by law. Electronically signed by: Yemi Kirby M.D. 12/27/2021 10:08 AM
[2021-12-27] MEDS: ASPIRIN 81 MG CHEW PO SCH (10:19)
[2021-12-27] MEDS: busPIRone 15 MG TAB PO SCH ×2 (10:19→20:06)
[2021-12-27] MEDS: amLODIPine BESYLATE 5 MG TAB PO SCH (10:19)
[2021-12-27] MEDS: METOPROLOL SUCC 25MG EXT REL TAB PO SCH ×2 (10:20→20:06)
[2021-12-27] MEDS: PANTOprazole 40 MG TAB PO SCH ×2 (10:20→20:07)
[2021-12-27] MEDS: FLUTICASONE/VILANTEROL 100/25MCG 14 PUFFS/INHALER INH SCH (10:20)
[2021-12-27] MEDS: VALSARTAN/SACUBITRIL 103/97MG TAB PO SCH ×2 (10:20→20:07)
[2021-12-27] MEDS: FLUoxetine HCL 20 MG CAP PO SCH (10:20)
--- NOTE | 2021-12-27 10:44 | Surgery Progress Note ---
Date of Service December 27, 2021 Assessment & Plan (1) Acute cholecystitis: Plan: undergoing cardiac eval coumadin on hold rising LFTs, EUS/ERCP planned eventual lap derek when medically stable seen with Dr. Lew Admission and Anticipated Discharge Date Admission Date: December 26, 2021 Supervising Physician Co-Signing Physician Notes I personally saw and evaluated the patient with Edu Patricio PA-C and agree with the assessment and plan. 66-year-old female with acute cholecystitis, elevated LFTs, significant cardiac history as well as syncopal episode Await EUS/ERCP tomorrow, we will tentatively plan for laparoscopic cholecystectomy, possible open She certainly will be at significant risk for perioperative complications due to her cardiac and respiratory comorbidities We will follow along Subjective abdominal pain and nausea improved with meds Physical Exam Gastrointestinal (Abdomen): Inspection/Auscultation: abdomen normal to inspection Percussion/Palpation: + abdomen tender (RUQ) and abdomen soft Results & Data ([facility]) Vital Signs (Past 12 Hours) Vital Signs Temp Pulse Pulse Resp BP BP Pulse Ox 12/27/21 08:15 66 12/27/21 06:22 37.0 C 78 18 145/85 H 91 12/27/21 02:26 37.4 C 74 18 113/73 93 12/27/21 02:00 37.4 C 77 74 18 113/73 93 12/27/21 00:31 76 24 138/81 93 12/27/21 00:00 70 21 106/64 94 12/26/21 23:30 69 21 110/73 95 12/26/21 23:00 72 21 113/71 96 PG Care Time/CCT Total # of Minutes Spent Total Time Spent with Patient: Total time spent is greater than 50% in coordination of care (as documented) at patient's floor/unit and/or counseling patient: Coding Level of Care Code 28351 Subseq Hosp Care Lvl 1 Diagnoses Acute cholecystitis K81.0
--- NOTE | 2021-12-27 14:14 | Magnetic Resonance Report ---
MR MRCP CLINICAL HISTORY: cholidocholithiasis? cholecystitis, elevated lft TECHNIQUE: Multiplanar multisequence MR images of the abdomen were obtained, as per MRCP protocol. . COMPARISON: Comparison is made to CT abdomen pelvis 12/27/2021 FINDINGS: Lower chest: Cardiomegaly is partially visualized. Liver: Unremarkable. No focal lesions are seen. Gallbladder and biliary tree: The gallbladder wall is markedly thickened measuring approximately 9 mm in diameter. No gallstones are definitely seen. No intra- or extrahepatic biliary ductal dilation. Pancreas: Unremarkable, no focal lesions. Spleen: Unremarkable. Adrenals: Unremarkable. Kidneys and ureters: Multiple cysts are seen in the left kidney. Bowel: Unremarkable. Lymph nodes Retroperitoneal: Unremarkable. Mesenteric: Unremarkable. Peritoneum: Normal Vessels: Unremarkable. Abdominal wall: Unremarkable. Bones: Unremarkable. IMPRESSION: Findings compatible with acute cholecystitis. No gallstones or choledocholithiasis are seen. ACT 112: Negative or not required by law. Electronically signed by: Yemi Kirby M.D. 12/27/2021 2:13 PM
[2021-12-27] MEDS ORDERED: PHYTONADIONE PED 1 MG/0.5ML AMP/SYRG IV ONE (16:54)
[2021-12-27] MEDS ORDERED: PHYTONADIONE 2.5 MG in DEXTROSE 5% 50 ML IV ONE (17:15)
[2021-12-27] MEDS: ATORVASTATIN 20 MG TAB PO SCH (20:05)
[2021-12-27] MEDS: FAMOTIDINE 20 MG TAB PO SCH (20:06)
[2021-12-27] MEDS: MIRTAZAPINE SOLTAB 15 MG PO SCH (20:07)
[2021-12-28] MEDS: PIPERACILLIN/TAZOBACTAM 3.375 GM in DEXTROSE 5% 100 ML IV SCH ×3 (03:23→22:12)
[2021-12-28 07:52] LABS: INR 1.3 (0.9-1.1); Mean Corpuscular Hemoglobin 28.7 pg (25-34); Mean Corpuscular Hgb Conc 32.4 g/dL (32-36); Mean Corpuscular Volume 88.5 fL (80-100); Mean Platelet Volume 11.3 fL (7.4-10.4); Platelet Count 194 K/uL (130-400); RDW Coefficient of Variation 14.8 % (11.5-14.5); RDW Standard Deviation 48.4 fL (36.4-46.3); Red Blood Count 4.18 M/uL (4.2-5.4); White Blood Count 8.88 K/uL (4.8-10.8)
[2021-12-28] MEDS: HYDROCODONE/ACETAMINOPHEN 7.5/325MG TAB PO PRN ×2 (07:52→19:12)
[2021-12-28 08:10] LABS: Albumin Globulin Ratio 1.1 (0.9-2); Albumin Level 3.1 gm/dl (3.4-5.0); BUN Creatinine Ratio 11.4 (10-20); Bilirubin,Total 2.2 mg/dl (0.2-1.0); Calcium 8.3 mg/dl (8.5-10.1); Est GFR (African American) 89.1 ml/min; Est GFR (Non-African American) 76.9 ml/min; Globulin 2.7 gm/dl (2.5-4.0); Magnesium 1.8 mg/dl (1.7-2.4); Phosphorus 2.3 mg/dl (2.5-4.9); Potassium 3.4 mmol/L (3.5-5.1); Total Protein 5.8 gm/dl (6.0-8.3)
--- NOTE | 2021-12-28 08:27 | Gastroenterology Progress Note ---
Date of Service December 28, 2021 Assessment & Plan (1) Acute cholecystitis: Plan: 66 year old female admitted w/ pain, nausea/vomiting, imaging concerning for cholecystitis, elevated transaminases TB 1.9, AST 517, ALT 128, ALP 250 and normal lipasem yesterday her transaminases bumped in the 1000's but this am returned to the 100's, perhaps she passed a stone NPO for EUS today +/- ERCP Hold coumadin Appreciate general surgery evaluation Antiemetics PRN Analgesia PRN Agree with ABX Thank you for allowing us to participate in the care of this patient. Please call with any acute changes, questions or concerns. Please see addendum below with additional recommendation from my supervising physician. Admission and Anticipated Discharge Date Admission Date: December 26, 2021 Supervising Physician Co-Signing Physician Notes I saw and evaluated the patient. She had a significant elevation of her liver associated enzymes and we are planning for further evaluation today with upper endoscopy and endoscopic ultrasound. Given the bilirubin of over 3 it is highly likely she has choledocholithiasis. We have discussed the risks and benefits of the procedures to include bleeding, infection, perforation, pancreatitis, failed biliary cannulation and need for follow-up studies. Subjective Pt was seen and evaluated, chart reviewed. Remains NPO for EUS+/- ERCP AST bumped yesterday in the 1000's, back in the 100's Her pain is actually improved. Review of Systems Review of Systems: All systems reviewed & are unremarkable except as noted in HPI & below Physical Exam Constitutional: WD/WN, vitals as above Neck: trachea midline, no thyromegaly Respiratory: normal respiratory effort, lungs clear to auscultation Cardiovascular: Rate/Rhythm: regular rate and regular rhythm Gastrointestinal (Abdomen): normal bowel sounds, soft, nontender, no hepatosplenomegaly Skin: no rashes, warm and dry Results & Data ([facility]) Vital Signs (Past 12 Hours) Vital Signs Temp Pulse Pulse Resp BP Pulse Ox 12/28/21 06:29 37.0 C 69 18 122/77 90 12/28/21 03:27 36.7 C 58 L 18 96/60 L 93 12/27/21 22:42 36.6 C 63 18 90/53 L 94 12/27/21 22:17 63 Laboratory Results 12/28/21 12/28/21 12/28/21 Range/Units 06:22 06:22 06:22 WBC 8.88 (4.8-10.8) K/uL RBC 4.18 L (4.2-5.4) M/uL Hgb 12.0 (12.0-16.0) g/dL Hct 37.0 (37-47) % MCV 88.5 (80-100) fL MCH 28.7 (25-34) pg MCHC 32.4 (32-36) g/dL RDW Std Deviation 48.4 H (36.4-46.3) fL RDW Coeff of Fredy 14.8 H (11.5-14.5) % Plt Count 194 (130-400) K/uL MPV 11.3 H (7.4-10.4) fL PT 14.0 H (9.0-12.0) Seconds INR 1.3 H (0.9-1.1) Sodium 137 (136-145) mmol/L Potassium 3.4 L (3.5-5.1) mmol/L Chloride 105 (98-107) mmol/L Carbon Dioxide 25 (21-32) mmol/L Anion Gap 7 (3-11) BUN 9 (6-23) mg/dl Creatinine 0.79 (0.6-1.2) mg/dl Est Cr Clr Drug Dosing 60.0 ml/min Est GFR ( Amer) 89.1 ml/min Est GFR (Non-Af Amer) 76.9 ml/min BUN/Creatinine Ratio 11.4 (10-20) Glucose 102 H (70-99(Fasting)) mg/dl Calcium 8.3 L (8.5-10.1) mg/dl Phosphorus 2.3 L (2.5-4.9) mg/dl Magnesium 1.8 (1.7-2.4) mg/dl Total Bilirubin 2.2 H (0.2-1.0) mg/dl Direct Bilirubin (0-0.2) mg/dl AST 202 H (13-39) U/L ALT 222 H (7-52) U/L Alkaline Phosphatase 251 H (34-104) U/L Total Creatine Kinase (26-192) U/L Troponin I High Sens (0-14) pg/ml Total Protein 5.8 L (6.0-8.3) gm/dl Albumin 3.1 L (3.4-5.0) gm/dl Globulin 2.7 (2.5-4.0) gm/dl Albumin/Globulin Ratio 1.1 (0.9-2) 12/27/21 12/27/21 12/27/21 Range/Units 10:48 10:48 05:24 WBC (4.8-10.8) K/uL RBC (4.2-5.4) M/uL Hgb (12.0-16.0) g/dL Hct (37-47) % MCV (80-100) fL MCH (25-34) pg MCHC (32-36) g/dL RDW Std Deviation (36.4-46.3) fL RDW Coeff of Fredy (11.5-14.5) % Plt Count (130-400) K/uL MPV (7.4-10.4) fL PT (9.0-12.0) Seconds INR (0.9-1.1) Sodium (136-145) mmol/L Potassium (3.5-5.1) mmol/L Chloride (98-107) mmol/L Carbon Dioxide (21-32) mmol/L Anion Gap (3-11) BUN (6-23) mg/dl Creatinine (0.6-1.2) mg/dl Est Cr Clr Drug Dosing ml/min Est GFR ( Amer) ml/min Est GFR (Non-Af Amer) ml/min BUN/Creatinine Ratio (10-20) Glucose (70-99(Fasting)) mg/dl Calcium (8.5-10.1) mg/dl Phosphorus (2.5-4.9) mg/dl Magnesium (1.7-2.4) mg/dl Total Bilirubin 3.5 H D (0.2-1.0) mg/dl Direct Bilirubin 2.4 H (0-0.2) mg/dl AST 1000 H (13-39) U/L ALT 429 H (7-52) U/L Alkaline Phosphatase 311 H (34-104) U/L Total Creatine Kinase 27 (26-192) U/L Troponin I High Sens 11.6 (0-14) pg/ml Total Protein 5.9 L (6.0-8.3) gm/dl Albumin 3.4 (3.4-5.0) gm/dl Globulin (2.5-4.0) gm/dl Albumin/Globulin Ratio (0.9-2)
--- NOTE | 2021-12-28 09:27 | Surgery Progress Note ---
Date of Service December 28, 2021 Assessment & Plan (1) Acute cholecystitis: Plan: Patient w/ cardiac history here with acute cholecystitis LFTs today show Tb: 2.2, AST: 202, ALT: 222, AlkP: 257 GI planning on performing EUS/ERCP today for concern for choledocholithiasis CTA yesterday revealed no aortic dissection Pending medicine/cardiac clearance we have tentatively placed pt on the OR schedule for lap derek tomorrow Coumadin is on hold, INR today 1.3 NPO at midnight Admission and Anticipated Discharge Date Admission Date: December 26, 2021 Supervising Physician Co-Signing Physician Notes I personally saw and evaluated the patient with Carmina James PA-C and agree with the assessment and plan. 66-year-old female with acute cholecystitis, elevated LFTs, significant cardiac history as well as syncopal episode EUS/ERCP today, will follow up results of this Her LFTs remain elevated however they are slightly improved today We will plan on laparoscopic cholecystectomy, possible open, possible cholangiogram tomorrow She was seen by cardiology and deemed moderate to high risk for perioperative events placed at 5% We will continue to follow Subjective Patient feeling okay. Having mild abdominal pain and nausea. No emesis. Physical Exam Physical Exam: awake/alert, no acute distress Gastrointestinal (Abdomen): Percussion/Palpation: + abdomen tender (in RUQ) and abdomen soft Results & Data ([facility]) Vital Signs (Past 12 Hours) Vital Signs Temp Pulse Pulse Resp BP Pulse Ox 12/28/21 06:29 37.0 C 69 18 122/77 90 12/28/21 03:27 36.7 C 58 L 18 96/60 L 93 12/27/21 22:42 36.6 C 63 18 90/53 L 94 12/27/21 22:17 63 PG Care Time/CCT Total # of Minutes Spent Total Time Spent with Patient: Total time spent is greater than 50% in coordination of care (as documented) at patient's floor/unit and/or counseling patient: Coding Level of Care Code 33667 Subseq Hosp Care Lvl 1 Diagnoses Acute cholecystitis K81.0
[2021-12-28] MEDS: ASPIRIN 81 MG CHEW PO SCH (09:30)
[2021-12-28] MEDS: busPIRone 15 MG TAB PO SCH ×2 (09:30→23:10)
[2021-12-28] MEDS: FLUoxetine HCL 20 MG CAP PO SCH (09:30)
[2021-12-28] MEDS: amLODIPine BESYLATE 5 MG TAB PO SCH (09:30)
[2021-12-28] MEDS: FLUTICASONE/VILANTEROL 100/25MCG 14 PUFFS/INHALER INH SCH (09:31)
[2021-12-28] MEDS: PANTOprazole 40 MG TAB PO SCH ×2 (09:31→23:09)
[2021-12-28] MEDS: METOPROLOL SUCC 25MG EXT REL TAB PO SCH ×2 (09:31→23:09)
[2021-12-28] MEDS: VALSARTAN/SACUBITRIL 103/97MG TAB PO SCH ×2 (09:31→23:09)
--- NOTE | 2021-12-28 11:29 | History & Physical Bridge Note ---
Date of Service December 28, 2021 History & Physical Bridge Note I have examined the patient, reviewed the History & Physical and in the interval since the performance of the History & Physical I have noted the following changes of clinical significance: no changes noted She had a significant elevation of her liver associated enzymes and we are planning for further evaluation today with upper endoscopy and endoscopic ultrasound. Given the bilirubin of over 3 it is highly likely she has choledocholithiasis. We have discussed the risks and benefits of the procedures to include bleeding, infection, perforation, pancreatitis, failed biliary cannulation and need for follow-up studies
[2021-12-28] MEDS ORDERED: INDOMETHACIN 50 MG SUPP PR ONE ×2 (11:30→11:31)
[2021-12-28] MEDS ORDERED: ONDANSETRON INJ 2 MG/ML 2 ML VIAL ONE (11:53)
[2021-12-28] MEDS ORDERED: PROPOFOL IV EMULSION 10 MG/ML 20 ML VIAL IV ONE (11:53)
[2021-12-28] MEDS ORDERED: LIDOCAINE 2% 2 ML VIAL/AMP(20MG/ML) INFIL ONE (11:53)
[2021-12-28] MEDS ORDERED: DEXAMETHASONE SOD INJ 4 MG/ML VIAL ONE (11:53)
[2021-12-28] MEDS ORDERED: fentaNYL citrate 100 MCG/2 ML VIAL ONE (11:53)
[2021-12-28] MEDS ORDERED: SUCCINYLCHOLINE CHLORIDE 20 MG/ML 10 ML VIAL IV ONE (11:55)
--- NOTE | 2021-12-28 11:56 | Anesthesiology Consultation ---
Date of Service December 28, 2021 Assessment & Plan (1) Encounter for pre-operative examination: Chart Review Chart Review: Acceptable Risk for Surgery and Patient NOT seen in Pre Admission Testing Consults Requested none History Surgery Operation Date: 12/27/21 09:30 Proposed Procedures p Cardiac Cath Procedure - Yunior Avila DO Operation Date: 12/28/21 10:30 Proposed Procedures p Endoscopic Ultrasonography Upper - Brock Bates DO s Endoscopic Retrograde Cholangiopancreatogram - Brock Bates DO Operation Date: 12/29/21 08:00 Proposed Procedures p Laparoscopic Cholecystectomy Possible Open, Possible Cholangiogram - Felipe Lew DO Height/Weight Height: 5 ft 2 in Weight: 64.3 kg Allergies Allergy/AdvReac Type Severity Reaction Status Date / Time clopidogrel [From Plavix] Allergy Severe facial Verified 12/26/21 19:01 swelling, itching ticagrelor [From Brilinta] Allergy Severe facial Verified 12/26/21 19:01 swelling, itching oxycodone Allergy Intermediate itching Verified 12/26/21 19:01 Medications Home Medications Medication Instructions Recorded Confirmed Last Taken atorvastatin 10 mg tablet 20 mg PO QPM 08/26/20 12/26/21 12/25/21 fluoxetine 40 mg capsule 40 mg PO QAM 08/26/20 12/26/21 12/26/21 ipratropium bromide 17 2 puff INHALATION QID 08/26/20 12/26/21 12/26/21 12:00 mcg/actuation HFA aerosol inhaler nitroglycerin 0.4 mg sublingual 0.4 mg SUBLINGUAL Q5M PRN 08/26/20 12/26/21 Unknown tablet (Nitrostat) sacubitril 97 mg-valsartan 103 mg 1 tab PO BID 08/26/20 12/26/21 12/26/21 08:00 tablet (Entresto) warfarin 2.5 mg tablet See Rx Instructions .ROUTE 08/26/20 12/26/21 12/25/21 .COMPLEX tab amlodipine 2.5 mg tablet 2.5 mg PO QAM 09/30/21 12/26/21 12/26/21 famotidine 20 mg tablet 20 mg PO HS 09/30/21 12/26/21 12/25/21 fluticasone furoate 100 1 inh INHALATION QAM 0212/26/21 12/26/21 mcg-vilanterol 25 mcg/dose inhalation powder (Breo Ellipta) mirtazapine 45 mg tablet 45 mg PO HS 09/30/21 12/26/21 12/25/21 pantoprazole 40 mg tablet,delayed 40 mg PO BID 09/30/21 12/26/21 12/26/21 08:00 release alendronate 70 mg tablet 70 mg PO WK 12/26/21 12/26/21 Unknown aspirin 81 mg chewable tablet 81 mg PO DAILY 12/26/21 12/26/21 12/26/21 buspirone 30 mg tablet 30 mg PO BID 12/26/21 12/26/21 12/26/21 08:00 hydrocodone 7.5 mg-acetaminophen 1 tab PO Q8H PRN 12/26/21 12/26/21 Unknown 325 mg tablet metoprolol succinate 25 mg 25 mg PO BID 12/26/21 12/26/21 12/26/21 08:00 tablet,extended release 24 hr Active Medications Generic Name Dose Route Start Last Admin Trade Name Freq PRN Reason Stop Dose Admin Hydrocodone Bitart/Acetaminophen 1 tab 12/27/21 01:36 12/28/21 07:52 Hydrocodone/Acetaminophen 7.5/325mg Tab PO 01/10/22 01:35 1 tab Q8H PRN Administration Pain Amlodipine Besylate 2.5 mg 12/27/21 09:00 12/28/21 09:30 Amlodipine Besylate 5 Mg Tab PO 01/26/22 08:59 Not Given QAM BELLO Aspirin 81 mg 12/27/21 09:00 12/28/21 09:30 Aspirin 81 Mg Chew PO 01/26/22 08:59 Not Given DAILY BELLO Atorvastatin Calcium 20 mg 12/27/21 21:00 12/27/21 20:05 Atorvastatin 20 Mg Tab PO 01/26/22 20:59 20 mg QPM BELLO Administration Buspirone HCl 30 mg 12/27/21 09:00 12/28/21 09:30 Buspirone 15 Mg Tab PO 01/26/22 08:59 Not Given BID BELLO Famotidine 20 mg 12/27/21 21:00 12/27/21 20:06 Famotidine 20 Mg Tab PO 01/26/22 20:59 20 mg HS BELLO Administration Fluoxetine HCl 40 mg 12/27/21 09:00 12/28/21 09:30 Fluoxetine Hcl 20 Mg Cap PO 01/26/22 08:59 Not Given QAM BELLO Fluticasone/Vilanterol 1 puffs 12/27/21 09:00 12/28/21 09:31 Fluticasone/Vilanterol 100/25mcg 14 Puffs/Inhaler INH 01/26/22 08:59 Not Given QAM BELLO Piperacillin Sod/Tazobactam 115 mls @ 28.75 mls/hr 12/27/21 04:00 12/28/21 07:52 Sod 3.375 gm/ Dextrose IV 01/06/22 03:59 Infused Q8H BELLO Infusion Protocol Dextrose/Sodium Chloride 1,000 mls @ 75 mls/hr 12/27/21 01:36 12/27/21 23:15 D5w And 1/2nss IV 01/26/22 01:35 75 mls/hr .[id number] BELLO Administration Metoprolol Succinate 25 mg 12/27/21 09:00 12/28/21 09:31 Metoprolol Succ 25mg Ext Rel Tab PO 01/26/22 08:59 Not Given BID BELLO Mirtazapine 45 mg 12/27/21 21:00 12/27/21 20:07 Mirtazapine Soltab 15 Mg PO 01/26/22 20:59 45 mg HS BELLO Administration Morphine Sulfate 3 mg 12/27/21 01:36 12/27/21 18:48 Morphine Sulfate 4 Mg/Ml 1 Ml Carp\Vial IV 01/10/22 01:35 3 mg Q4H PRN Administration Pain Pantoprazole Sodium 40 mg 12/27/21 09:00 12/28/21 09:31 Pantoprazole 40 Mg Tab PO 01/26/22 08:59 Not Given BID BELLO Sacubitril/Valsartan 1 tab 12/27/21 09:00 12/28/21 09:31 Valsartan/Sacubitril 103/97mg Tab PO 01/26/22 08:59 Not Given BID BELLO NPO Date Last Intake of Fluids: 12/28/21 Time Last Intake of Fluids: 07:30 Last Intake of Fluids Comment: sip with meds Date Last Intake of Solids: 12/26/21 Time Last Intake of Solids: 12:00 Past Medical History Medical History Anxiety Anxiety disorder Aphasia, mixed CAD (coronary artery disease) follows with Elton Lee PA-C. CHF (congestive heart failure) COPD (chronic obstructive pulmonary disease) CVA (cerebral vascular accident) 2004; dysphagia, some expressive/receptive aphasia, improved with speech therapy Depression Dysphagia GERD (gastroesophageal reflux disease) History of anesthesia reaction pt has some expressive aphasia r/t previous stroke, had difficult time explaining anesthesia problem. says she had difficulty breathing coming out of anesthesia in past. unable to elaborate beyond that. says occurence x 1 while living in [place]. History of myocardial infarction 1991 HLD (hyperlipidemia) HTN (hypertension) Osteoarthritis Osteoporosis Poor historian poor memory Throat fullness reason for EGD Past Surgical History Surgical History H/O heart artery stent 5 stents (thinks last placed in 2019) History of cardiac catheterization multiple (believes most recent was in 2019 while living in [place]) History of heart valve replacement 09/2019 while living in [place] History of open heart surgery Sep 23, 2019 History of tonsillectomy History of wisdom tooth extraction Social History Smoking Status: Former smoker Do You Dip or Chew Tobacco: No Smoking End Date: 1 year ago Hx Alcohol Use: No Alcohol type: wine Hx Substance Use: No substance use type: does not use Physical Exam Vital Signs Last Vital Signs Temp 37.1 C 12/28/21 09:42 Pulse 60 12/28/21 09:42 Resp 18 12/28/21 09:42 BP 106/72 12/28/21 09:42 Pulse Ox 94 12/28/21 09:42 Testing Laboratory Results 12/28/21 06:22 12/28/21 06:22 PT 14.0 Seconds (9.0-12.0) H 12/28/21 06:22 INR 1.3 (0.9-1.1) H 12/28/21 06:22 APTT 31.7 Seconds (21.0-31.0) H 12/26/21 19:37 Electrocardiogram Date: 12/27/21 Findings: + NSR @ (67) and + LA (septal infarct) Echocardiogram Date: 12/27/21 EF: 45-50 RWMA: + hypokinetic (apical) Other Findings: + diastolic dysfunction (grade 2) Valvular Disease: + MR (moderate) bioprosthetic aortic valve, mild TR, mildly reduced RV systolic function Other Testing CT angio chest dissec wo/w con CLINICAL HISTORY: back pain TECHNIQUE: Multidetector row helical CT of the chest was performed before and after injection of IV contrast. Coronal and sagittal reformations were obtained. Automated dose lowering techniques and/or adjustment according to patient size were utilized for this exam. CT DOSE: 1044.50 mGy.cm Comparison: None available at the time of this dictation. FINDINGS: Lungs and pleura: Diffuse centrilobular emphysema is seen most prominent in the upper lobes. Atelectasis versus scarring is seen in the left greater than right lower lobe. Heart and pericardium: There is mild cardiomegaly without evidence of pericardial effusion. Vessels: Severe atherosclerotic changes in the aorta and coronary arteries. Aortic valvular replacement is seen. No evidence of aortic dissection. Mediastinum and wu: Subcentimeter lymph nodes are seen. There is patulous dilation of the esophagus. Chest wall and lower neck: Unremarkable. Abdomen: For findings below the diaphragm, please refer to CT of the abdomen dated the same. Bones: Degenerative changes in the thoracic spine. IMPRESSION: 1. No acute abnormality and in particular no evidence of acute aortic injury. 2. Emphysema and scarring and patulous dilation of the esophagus. This is nonspecific but can be seen in scleroderma. ACT 112: Negative or not required by law. Electronically signed by: Yemi Kirby M.D. 12/27/2021 10:08 AM Dictated:12/27/21 0957 Transcribed: 12/27/21 0957
[2021-12-28] MEDS ORDERED: ePHEDrine sulfate 50 MG/ML AMP IV PRN (12:08)
[2021-12-28] MEDS ORDERED: ATROPINE SULFATE 0.1 MG/ML 10ML SYR IV PRN (12:08)
[2021-12-28] MEDS ORDERED: LABETALOL HCL IV 5 MG/ML 20ML IV PRN (12:08)
[2021-12-28] MEDS ORDERED: ONDANSETRON INJ 2 MG/ML 2 ML VIAL IV PRN (12:08)
[2021-12-28] MEDS ORDERED: fentaNYL citrate 100 MCG/2 ML VIAL IV PRN (12:08)
[2021-12-28] MEDS ORDERED: PHENYLEPHRINE 100MCG/ML 5ML SYR IV PRN (12:08)
--- NOTE | 2021-12-28 12:26 | GI REPORT ---
Patient Name: Malia Nice Procedure Date: 12/28/2021 12:17 PM Date of : 1955 Admit Type: Inpatient Age: 66 Gender: Female Attending MD: Brock Bates DO Procedure: Upper GI endoscopy Providers: Brock Bates DO Referring MD: Brea Gutiérrez Md Indications: Epigastric abdominal pain, Abdominal pain in the right upper quadrant Medicines: General Anesthesia Complications: No immediate complications. Estimated blood loss: Minimal. Estimated Blood Loss: Estimated blood loss was minimal. Procedure: Pre-Anesthesia Assessment: - Prior to the procedure, a History and Physical was performed, and patient medications, allergies and sensitivities were reviewed. The patient's tolerance of previous anesthesia was reviewed. - The risks and benefits of the procedure and the sedation options and risks were discussed with the patient. All questions were answered and informed consent was obtained. - Patient identification and proposed procedure were verified prior to the procedure by the physician, the nurse and the digital marketing assistant. The procedure was verified in the procedure room. - Pre-procedure physical examination revealed no contraindications to sedation. - ASA Grade Assessment: IV - A patient with severe systemic disease that is a constant threat to life. - After reviewing the risks and benefits, the patient was deemed in satisfactory condition to undergo the procedure. - The anesthesia plan was to use general anesthesia. - Immediately prior to administration of medications, the patient was re-assessed for adequacy to receive sedatives. - The heart rate, respiratory rate, oxygen saturations, blood pressure, adequacy of pulmonary ventilation, and response to care were monitored throughout the procedure. - The physical status of the patient was re-assessed after the procedure. After obtaining informed consent, the endoscope was passed under direct vision. Throughout the procedure, the patient's blood pressure, pulse, and oxygen saturations were monitored continuously. The Endoscope was introduced through the mouth, and advanced to the third part of duodenum. The upper GI endoscopy was accomplished without difficulty. The patient tolerated the procedure well. Findings: The examined esophagus was normal. The Z-line was regular and was found 36 cm from the incisors. A single 4 mm angiodysplastic lesion with no bleeding was found in the cardia. The gastric body, incisura and gastric antrum were normal. The duodenal bulb was normal. A single 4 mm angiodysplastic lesion without bleeding was found in the second portion of the duodenum. The third portion of the duodenum was normal. Impression: - Normal esophagus. - Z-line regular, 36 cm from the incisors. - A single non-bleeding angiodysplastic lesion in the stomach. - Normal gastric body, incisura and antrum. - Normal duodenal bulb. - A single non-bleeding angiodysplastic lesion in the duodenum. - Normal third portion of the duodenum. - No specimens collected. Recommendation: - Perform an upper endoscopic ultrasound (UEUS) today. Brock Bates D.O. Brock Bates, 12/28/2021 12:26:10 PM This report has been signed electronically. Note Initiated On: 12/28/2021 12:17 PM Number of Addenda: 0 I attest to the content of the Intraoperative Record and orders documented therein, exceptions below {[id number]}
[2021-12-28] MEDS ORDERED: ePHEDrine sulfate 50 MG/ML SYR ONE (12:58)
--- NOTE | 2021-12-28 13:01 | GI REPORT ---
Patient Name: Malia Nice Procedure Date: 12/28/2021 12:26 PM Date of : 1955 Admit Type: Inpatient Age: 66 Gender: Female Attending MD: Brock Bates DO Procedure: Upper EUS Providers: Brock Bates DO Referring MD: Brea Gutiérrez Md Indications: Elevated liver enzymes, Suspected choledocholithiasis, Epigastric abdominal pain, Abdominal pain in the right upper quadrant Medicines: General Anesthesia Complications: No immediate complications. Estimated blood loss: Minimal. Estimated Blood Loss: Estimated blood loss was minimal. Estimated blood loss was minimal. Procedure: Pre-Anesthesia Assessment: - Prior to the procedure, a History and Physical was performed, and patient medications, allergies and sensitivities were reviewed. The patient's tolerance of previous anesthesia was reviewed. - The risks and benefits of the procedure and the sedation options and risks were discussed with the patient. All questions were answered and informed consent was obtained. - Patient identification and proposed procedure were verified prior to the procedure by the physician, the nurse and the brick wheeler. The procedure was verified in the procedure room. - Pre-procedure physical examination revealed no contraindications to sedation. - ASA Grade Assessment: IV - A patient with severe systemic disease that is a constant threat to life. - After reviewing the risks and benefits, the patient was deemed in satisfactory condition to undergo the procedure. - The anesthesia plan was to use general anesthesia. - Immediately prior to administration of medications, the patient was re-assessed for adequacy to receive sedatives. - The heart rate, respiratory rate, oxygen saturations, blood pressure, adequacy of pulmonary ventilation, and response to care were monitored throughout the procedure. - The physical status of the patient was re-assessed after the procedure. After obtaining informed consent, the endoscope was passed under direct vision. Throughout the procedure, the patient's blood pressure, pulse, and oxygen saturations were monitored continuously. The Scope was introduced through the mouth, and advanced to the second part of duodenum. The upper EUS was accomplished without difficulty. The patient tolerated the procedure well. Findings: ENDOSONOGRAPHIC FINDING: : There was no sign of significant endosonographic abnormality in the ampulla. No pathologic lymphadenopathy and no masses were identified. Two stones were visualized endosonographically in the lower third of the main bile duct. The stones measured up to 2 mm in greatest dimension. They were hyperechoic. Multiple stones were visualized endosonographically in the gallbladder. The stones measured up to 2 mm in greatest dimension. They were hyperechoic. Minimal hyperechoic material consistent with sludge was visualized endosonographically in the gallbladder. Gallbladder wall thickening and pericholecystic fluid was noted. There was no sign of significant endosonographic abnormality in the visualized portion of the liver. Homogeneous parenchyma, no focal pathology and no masses were identified. There was no sign of significant endosonographic abnormality in the entire pancreas. The pancreatic duct measured up to 2 mm in diameter. No masses, the pancreatic duct was thin in caliber. No lymphadenopathy seen. There was no sign of significant endosonographic abnormality in the left adrenal gland. No masses and no adrenal gland enlargement were identified. Impression: - There was no sign of significant pathology in the ampulla. - Two stones were visualized endosonographically in the lower third of the main bile duct. - Multiple stones were visualized endosonographically in the gallbladder. - Hyperechoic material consistent with sludge was visualized endosonographically in the gallbladder. - There was no evidence of significant pathology in the visualized portion of the liver. - There was no sign of significant pathology in the entire pancreas. - Endosonographic images of the left adrenal gland were unremarkable. - No specimens collected. Recommendation: - Perform an ERCP today. Brock Bates D.O. Brock Bates, 12/28/2021 1:00:29 PM This report has been signed electronically. Note Initiated On: 12/28/2021 12:26 PM Number of Addenda: 0 I attest to the content of the Intraoperative Record and orders documented therein, exceptions below {[id number]}
--- NOTE | 2021-12-28 13:06 | Post Operative Brief Note ---
Immediate Post Op Note v1 Date of Surgery December 28, 2021 Pre & Post Diagnosis Operation Date: 12/27/21 09:30 <No data on this case meets the specified criteria> Operation Date: 12/28/21 10:30 Pre-Op Diagnosis: ABDOMINAL PAIN Post-Op Diagnosis: common bile duct stones. I identified the patient and participated in the time-out.: Yes Procedure Operation Date: 12/27/21 09:30 <No data on this case meets the specified criteria> Operation Date: 12/28/21 10:30 Actual Procedures p Esophagogastroduodenoscopy - Brock Bates DO p Endoscopic Ultrasonography Upper - Brock Bates DO s Endoscopic Retrograde Cholangiopancreato - Brock Bates DO Operation Date: 12/29/21 08:00 <No data on this case meets the specified criteria> Surgeon Brock Bates DO Legal Compliance Officer none Estimated Blood Loss 0 Findings Consistent with Post-Op Diagnosis
--- NOTE | 2021-12-28 13:07 | Communication Note ---
Date of Service: December 28, 2021 The patient underwent ERCP this afternoon after she was found to have evidence of choledocholithiasis on endoscopic ultrasound. We removed several stones from the common bile duct, placed a prophylactic pancreatic stent and bile duct stent. Recommendations Continue with IV hydration with LR at 150 mL an hour overnight May have ice chips and sips of water today Continue broad-spectrum antibiotic coverage for total of 10 days Cholecystectomy as planned by general surgery Please avoid antiplatelet and anticoagulation for 5 days if possible Repeat ERCP for stent removal in 6 weeks
--- NOTE | 2021-12-28 13:19 | GI REPORT ---
Patient Name: Malia Nice Procedure Date: 12/28/2021 12:37 PM Date of : 1955 Admit Type: Inpatient Age: 66 Gender: Female Attending MD: Brock Bates DO Procedure: ERCP Providers: Brock Bates DO Referring MD: Brea Gutiérrez Md Indications: Abdominal pain of suspected biliary origin, For therapy of bile duct stone(s) Medicines: General Anesthesia Complications: No immediate complications. Estimated blood loss: Minimal. Estimated Blood Loss: Estimated blood loss was minimal. Procedure: Pre-Anesthesia Assessment: - Prior to the procedure, a History and Physical was performed, and patient medications, allergies and sensitivities were reviewed. The patient's tolerance of previous anesthesia was reviewed. - The risks and benefits of the procedure and the sedation options and risks were discussed with the patient. All questions were answered and informed consent was obtained. - Patient identification and proposed procedure were verified prior to the procedure by the physician, the nurse and the casino accountant. The procedure was verified in the procedure room. - Pre-procedure physical examination revealed no contraindications to sedation. - ASA Grade Assessment: IV - A patient with severe systemic disease that is a constant threat to life. - After reviewing the risks and benefits, the patient was deemed in satisfactory condition to undergo the procedure. - The anesthesia plan was to use general anesthesia. - Immediately prior to administration of medications, the patient was re-assessed for adequacy to receive sedatives. - The heart rate, respiratory rate, oxygen saturations, blood pressure, adequacy of pulmonary ventilation, and response to care were monitored throughout the procedure. - The physical status of the patient was re-assessed after the procedure. After obtaining informed consent, the scope was passed under direct vision. Throughout the procedure, the patient's blood pressure, pulse, and oxygen saturations were monitored continuously. The Duodenoscope was introduced through the mouth, and advanced to the duodenum and used to inject contrast into the bile duct. The patient tolerated the procedure well. The ERCP was somewhat difficult due to challenging cannulation because of papillary stenosis. Findings: The control officer manager film was normal. The esophagus was successfully intubated under direct vision without detailed examination of the pharynx, larynx, and associated structures, and upper GI tract. The upper GI tract was grossly normal. The major papilla was small. A 0.035 in Acrobat 2 guidewire was passed into what appeared to be the CBD (wire did no pass spine and extended high up into the right upper quadrant). A small amount of contrast was injected revealing the pancreatic duct. I personally interpreted the pancreatic duct images. Contrast extended to the proximal pancreatic duct. The entire opacified area was normal. The wire was left in place to aid in biliary cannulation and later place a prophylacitc stent. The bile duct was deeply cannulated with the short-nosed traction sphincterotome and guidewire. Contrast was injected. The biliary orifice was stenotic. This appeared benign. The lower third of the main bile duct contained filling defect(s) thought to be a stone and sludge. Biliary sphincterotomy was made with a Fusion OMNI sphincterotome using ERBE electrocautery. There was no post-sphincterotomy bleeding. To discover objects, the biliary tree was swept with an 11.5 mm balloon starting at the bifurcation. Two stones were removed. No stones remained. One 10 Fr by 7 cm biliary stent with a single external flap and a single internal flap was placed 7 cm into the common bile duct. Bile flowed through the stent. The stent was in good position. One 5 Fr by 7 cm pancreatic stent with a full external pigtail and no internal flaps was placed 7 cm into the ventral pancreatic duct. Clear fluid flowed through the stent. The stent was in good position. The endoscope was withdrawn from the patient. The total fluoroscopy exposure time was 1 minute and 3 seconds. Indomethacin 100 mg was given via suppository to decrease the risk of post-ERCP pancreatitis (PEP). Impression: - The major papilla appeared to be small. - Biliary papillary stenosis, benign. - Choledocholithiasis was found. Complete removal was accomplished by biliary sphincterotomy and balloon extraction. - One biliary stent was placed into the common bile duct. - One pancreatic stent was placed into the ventral pancreatic duct. - Indomethacin given to decrease risk of post-ERCP pancreatitis. Recommendation: - Avoid aspirin and nonsteroidal anti-inflammatory medicines for 5 days. - Use broad spectrum antibiotics for 10 days. - Repeat ERCP in 6 weeks to remove stent. Brock Bates D.O. Brock Bates DO 12/28/2021 1:18:40 PM This report has been signed electronically. Note Initiated On: 12/28/2021 12:37 PM Number of Addenda: 0 I attest to the content of the Intraoperative Record and orders documented therein, exceptions below {[id number]}
--- NOTE | 2021-12-28 13:57 | Anesthesiology Progress Note ---
Date of Service December 28, 2021 Anesthesia Post Procedure Vital Signs Vital Signs: Temp Pulse Pulse Pulse Resp BP Pulse Ox 12/28/21 13:45 71 20 153/78 H 93 12/28/21 13:35 67 17 149/78 H 95 12/28/21 13:25 69 22 149/78 H 94 12/28/21 13:15 69 21 151/80 H 95 12/28/21 13:08 36.0 C L 76 16 145/83 H 94 12/28/21 09:42 37.1 C 60 18 106/72 94 12/28/21 08:00 66 12/28/21 06:29 37.0 C 69 18 122/77 90 12/28/21 03:27 36.7 C 58 L 18 96/60 L 93 12/27/21 22:42 36.6 C 63 18 90/53 L 94 12/27/21 22:17 63 12/27/21 18:30 36.8 C 73 18 159/84 H 95 12/27/21 16:00 68 12/27/21 15:37 36.6 C 57 L 16 101/66 94 Transfer of Care Handoff Completed per policy Notes Mental Status: alert / awake / arousable Patient Amnestic to Procedure: Yes Nausea / Vomiting: adequately controlled Pain: adequately controlled Airway Patency, RR, SpO2: stable & adequate BP & HR: stable & adequate Hydration State: stable & adequate Anesthetic Complications: no major complications apparent and Pt Satisfied with anesthetic care Notes: The patient is awake and comfortable.
--- NOTE | 2021-12-28 13:58 | Fluoroscopy Report ---
[place] ERCP biliary ductal CLINICAL HISTORY: ERCP IN OR COMPARISON STUDY: None FLUOROSCOPY TIME: 1 minute and 3 seconds. FLUOROSCOPIC IMAGES: 5 FINDINGS: Spot images were obtained following contrast injection for ERCP. 2 stents were placed.. IMPRESSION: Status post ERCP with placement of 2 stents. Please see procedural note for further eval uation. ACT 112: Negative or not required by law. Electronically signed by: Rojelio Day M.D. 12/28/2021 1:56 PM
--- NOTE | 2021-12-28 14:47 | Electrocardiogram Report ---
Test Reason : Blood Pressure : / mmHG Vent. Rate : 067 BPM Atrial Rate : 067 BPM P-R Int : 144 ms QRS Dur : 086 ms QT Int : 356 ms P-R-T Axes : 000 -03 097 degrees QTc Int : 376 ms Normal sinus rhythm Nonspecific ST abnormality When compared with ECG of 26-DEC-2021 18:02, QT has shortened Confirmed by Karlo Worthington ([id number]) on 12/28/2021 2:47:44 PM Referred By: REFERRED SELF Confirmed By:True Worthington
[2021-12-28] MEDS: D5W AND 1/2NSS 1,000 ML IV SCH (14:54)
[2021-12-28] MEDS: LACTATED RINGER'S 1,000 ML IV SCH ×2 (14:56→22:13)
--- NOTE | 2021-12-28 16:01 | Anesthesiology Progress Note ---
Date of Service December 28, 2021 Anesthesia Post Procedure Vital Signs Vital Signs: Temp Pulse Pulse Pulse Resp BP BP 12/28/21 15:04 36.6 C 74 18 163/91 H 12/28/21 14:05 71 16 144/87 H 12/28/21 13:55 36.4 C L 71 20 154/81 H 12/28/21 13:45 71 20 153/78 H 12/28/21 13:35 67 17 149/78 H 12/28/21 13:25 69 22 149/78 H 12/28/21 13:15 69 21 151/80 H 12/28/21 13:08 36.0 C L 76 16 145/83 H 12/28/21 09:42 37.1 C 60 18 106/72 12/28/21 08:00 66 12/28/21 06:29 37.0 C 69 18 122/77 12/28/21 03:27 36.7 C 58 L 18 96/60 L 12/27/21 22:42 36.6 C 63 18 90/53 L 12/27/21 22:17 63 12/27/21 18:30 36.8 C 73 18 159/84 H Pulse Ox 12/28/21 15:04 92 12/28/21 14:05 93 12/28/21 13:55 93 12/28/21 13:45 93 12/28/21 13:35 95 12/28/21 13:25 94 12/28/21 13:15 95 12/28/21 13:08 94 12/28/21 09:42 94 12/28/21 08:00 12/28/21 06:29 90 12/28/21 03:27 93 12/27/21 22:42 94 12/27/21 22:17 12/27/21 18:30 95 Transfer of Care Handoff Completed per policy Notes Mental Status: alert / awake / arousable Patient Amnestic to Procedure: Yes Nausea / Vomiting: adequately controlled Pain: adequately controlled Airway Patency, RR, SpO2: stable & adequate BP & HR: stable & adequate Hydration State: stable & adequate Anesthetic Complications: no major complications apparent and Pt Satisfied with anesthetic care
--- NOTE | 2021-12-28 18:32 | Hospitalist Progress Note ---
Date of Service December 28, 2021 Assessment & Plan (1) Acute cholecystitis: Plan: 66-year-old female who presents with right upper quadrant abdominal pain radiating to the chest, questionable near syncope and found to have cholecystitis. #. Acute cholecystitis #. Transaminitis #. CBD stones Patient presented 12/27 with right upper quadrant abdominal pain radiating to the chest and questionable near syncope, found to have cholecystitis in the ED. Admitting echo: EF 45 to 50%, grade 2 [address] Admitting head CT: No acute findings. Admitting abdomen x-ray: Nonobstructive bowel gas pattern. Admitting GB US: Suggestive of acute cholecystitis. 12/27 MRCP: Suggestive of acute cholecystitis. No gallstone or choledocholithiasis seen. 12/27 CTAP: Suggestive of acute cholecystitis. 12/27 CTA chest: No evidence of acute aortic injury. Chronic changes in esophagus. 12/28 EUS: 2 stones were visualized in the lower third of the main bile duct. Multiple stones in the gallbladder. No specimens collected. 12/28 ERCP with EUS: Benign biliary papillary stenosis. Choledocholithiasis noted status post complete removal by biliary sphincterotomy and balloon extraction. One biliary stent was placed into CBD. One pancreatic stent was placed into ventral pancreatic duct. Indomethacin given to decrease risks of post ERCP pancreatitis. Cardiology preop evaluation, obtained chest CT and abdomen pelvis CTA: Negative for any aortic dissection, obtained echo. Aspirin must not be interrupted given history of multiple PCI's. Okay to hold warfarin from cardiac standpoint but will require bridging after invasive procedure completed. Continue with metoprolol throughout the perioperative period Entresto may be held if necessary. GI evaluated, repeat ERCP for stent removal in 6 weeks. Avoid NSAIDs and aspirin for 5 days. N.p.o., continue with gentle IV fluids, pain management and antibiotics and nausea control. Antibiotics for total of 10 days. Continue to hold Coumadin, INR 1.3 today, plan for cholecystectomy likely tomorrow. LFT improving, pain under control, continue to monitor LFT. #. Questionable near syncope: Echo and troponin trend reviewed. WNL. Cardiology evaluated. Continue with telemetry. #. Other chronic medical conditions: CAD status post multiple stents and coronary artery bypass grafting, paroxysmal A. fib, chronic systolic CHF, embolic CVA, history of aphasia, GERD, depression, HLD, HTN, chronic obstructive pulmonary disease, status post bioprosthetic aortic valve placement Continue with/resume home meds as and when appropriate. #. DISPOSITION: Closely monitor in the med-tele. PT/OT prior to discharge. Social service to help with discharge planning. Likely for surgery tomorrow. Admission and Anticipated Discharge Date Admission Date: December 26, 2021 Subjective Patient seen and examined at bedside for follow-up of transaminitis and cholecystitis. Patient was lying in bed, on 3 L nasal cannula oxygen, appearing ill and frail, lethargic, had ERCP with EUS in the morning, n.p.o., reports pain under control, reports nausea but no vomiting. Denies headache/dizziness/chest pain/palpitation/other review of symptoms. Physical Exam Physical Exam: GENERAL: Alert and oriented x3. NAD, on 3L NC O2. ill and frail appearing. HEENT: No pallor, no icterus. Pupils equal, round and reactive to light. Oral mucosa moist. NECK: No JVD, no neck masses. HEART: S1 and S2 heard. Regular rate and rhythm. SM at A and P area, no gallop. RESPIRATORY SYSTEM: Normal AP diameter. No accessory muscle use. No wheezing, no crackles. ABDOMEN: Soft, bowel sounds present, RUQ tender, no distention. CENTRAL NERVOUS SYSTEM: No facial droop. Speech is clear. Obeys simple commands. Moves extremities. EXTREMITIES: No edema, no erythema seen. Results & Data Results & Data ([facility]) Vital Signs (Past 12 Hours) Vital Signs Temp Pulse Pulse Pulse Resp BP BP 12/28/21 15:04 36.6 C 74 18 163/91 H 12/28/21 14:30 36.8 C 78 16 161/88 H 12/28/21 14:15 36.8 C 75 16 155/84 H 12/28/21 14:05 71 16 144/87 H 12/28/21 13:55 36.4 C L 71 20 154/81 H 12/28/21 13:45 71 20 153/78 H 12/28/21 13:35 67 17 149/78 H 12/28/21 13:25 69 22 149/78 H 12/28/21 13:15 69 21 151/80 H 12/28/21 13:08 36.0 C L 76 16 145/83 H 12/28/21 09:42 37.1 C 60 18 106/72 12/28/21 08:00 66 12/28/21 06:29 37.0 C 69 18 122/77 Pulse Ox 12/28/21 15:04 92 12/28/21 14:30 94 12/28/21 14:15 93 12/28/21 14:05 93 12/28/21 13:55 93 12/28/21 13:45 93 12/28/21 13:35 95 12/28/21 13:25 94 12/28/21 13:15 95 12/28/21 13:08 94 12/28/21 09:42 94 12/28/21 08:00 12/28/21 06:29 90
[2021-12-28] MEDS: POTASSIUM CHLORIDE / WTR 10 MEQ/100 ML PLCT IV SCH ×2 (19:59→20:37)
[2021-12-28] MEDS ORDERED: PROMETHAZINE HCL 12.5 MG in SODIUM CHLORIDE 0.9% 50 ML IV PRN (22:29)
[2021-12-28] MEDS: MIRTAZAPINE SOLTAB 15 MG PO SCH (23:09)
[2021-12-28] MEDS: ATORVASTATIN 20 MG TAB PO SCH (23:10)
[2021-12-28] MEDS: FAMOTIDINE 20 MG TAB PO SCH (23:10)
[2021-12-29] MEDS: HYDROCODONE/ACETAMINOPHEN 7.5/325MG TAB PO PRN ×3 (00:28→21:16)
[2021-12-29] MEDS ORDERED: MoRPHine SULFATE 2 MG/ML CARP IV PRN (03:54)
[2021-12-29] MEDS: PIPERACILLIN/TAZOBACTAM 3.375 GM in DEXTROSE 5% 100 ML IV SCH ×3 (04:01→20:23)
[2021-12-29] MEDS: LACTATED RINGER'S 1,000 ML IV SCH ×4 (04:46→17:47)
[2021-12-29 06:41] LABS: INR 1.1 (0.9-1.1); Prothrombin Time 11.5 Seconds (9.0-12.0)
[2021-12-29 06:47] LABS: Hematocrit (blood only) 34.9 % (37-47); Hemoglobin 11.7 g/dL (12.0-16.0); Mean Corpuscular Hemoglobin 29.9 pg (25-34); Mean Corpuscular Hgb Conc 33.5 g/dL (32-36); Mean Corpuscular Volume 89.3 fL (80-100); Mean Platelet Volume 11.5 fL (7.4-10.4); Platelet Count 207 K/uL (130-400); RDW Coefficient of Variation 14.5 % (11.5-14.5); RDW Standard Deviation 47.6 fL (36.4-46.3); Red Blood Count 3.91 M/uL (4.2-5.4); White Blood Count 7.84 K/uL (4.8-10.8)
[2021-12-29 07:23] LABS: BUN Creatinine Ratio 14.3 (10-20); Calcium 8.5 mg/dl (8.5-10.1); Creatinine Clr Calc Pharmacy 67.8 ml/min; Est GFR (African American) 103.2 ml/min; Globulin 2.9 gm/dl (2.5-4.0); Magnesium 1.8 mg/dl (1.7-2.4); Phosphorus 2.7 mg/dl (2.5-4.9); Potassium 3.8 mmol/L (3.5-5.1); Total Protein 5.9 gm/dl (6.0-8.3)
--- NOTE | 2021-12-29 08:03 | Surgery Progress Note ---
Date of Service December 29, 2021 Assessment & Plan (1) Acute cholecystitis: Plan: ERCP results and images viewed by me, consistent with choledocholithiasis She seems to be doing well this morning and her labs are stable Plan today for laparoscopic cholecystectomy, possible open, possible intraoperative cholangiogram Consent was obtained, risks discussed including bleeding, infection, bile leak, ductal injury, stroke, [place], pneumonia She is certainly at higher risk for perioperative complications given her recent cardiac stents and open heart surgery in 2019 This was discussed with her and she is okay proceeding with the knowledge of this increased risk (2) H/O heart artery stent: (3) History of open heart surgery: Admission and Anticipated Discharge Date Admission Date: December 26, 2021 Subjective Patient seen and examined. Still with right upper quadrant pain. No acute events overnight. Afebrile. Review of Systems Constitutional: no fever and no chills Physical Exam Physical Exam: awake/alert, no acute distress Gastrointestinal (Abdomen): Percussion/Palpation: + abdomen tender (in RUQ) and abdomen soft Results & Data ([facility]) Vital Signs (Past 12 Hours) Vital Signs Temp Pulse Pulse Resp BP Pulse Ox 12/29/21 07:14 36.6 C 73 16 143/85 H 95 12/29/21 07:07 69 12/29/21 06:44 36.5 C 74 18 137/82 92 12/29/21 03:11 36.8 C 74 18 131/75 92 12/28/21 23:31 36.9 C 78 20 165/92 H 95 12/28/21 22:17 73 PG Care Time/CCT Total # of Minutes Spent Total Time Spent with Patient: Total time spent is greater than 50% in coordination of care (as documented) at patient's floor/unit and/or counseling patient: Coding Level of Care Code 47331 Subseq Hosp Care Lvl 2 Diagnoses Acute cholecystitis K81.0 H/O heart artery stent Z95.5 History of open heart surgery Z98.890
[2021-12-29] MEDS ORDERED: PROPOFOL IV EMULSION 10 MG/ML 20 ML VIAL IV ONE (08:16)
[2021-12-29] MEDS ORDERED: MIDAZOLAM HCL 1 MG/ML 2ML VIAL ONE (08:16)
[2021-12-29] MEDS ORDERED: fentaNYL citrate 100 MCG/2 ML VIAL ONE ×2 (08:16→09:05)
[2021-12-29] MEDS ORDERED: BUPIVACAINE/EPINEPHRINE 0.25% 1:200,000 30 ML VIAL ONE (08:23)
[2021-12-29] MEDS ORDERED: ePHEDrine sulfate 50 MG/ML AMP IV PRN (08:30)
[2021-12-29] MEDS ORDERED: fentaNYL citrate 100 MCG/2 ML VIAL IV PRN (08:30)
[2021-12-29] MEDS ORDERED: ATROPINE SULFATE 0.1 MG/ML 10ML SYR IV PRN (08:30)
[2021-12-29] MEDS ORDERED: HYDROmorphone INJ 2 MG/ML SYR/VIAL IV PRN (08:30)
[2021-12-29] MEDS ORDERED: ONDANSETRON INJ 2 MG/ML 2 ML VIAL IV PRN (08:30)
--- NOTE | 2021-12-29 08:30 | Anesthesiology Consultation ---
Date of Service December 29, 2021 Assessment & Plan ASA ASA4 Proposed Anesthesia Anesthesia Type: General Risk / Benefits Reviewed With: PT / POA / Parent / Guardian, Accepts Plan and Informed Consent Obtained History Surgery Operation Date: 12/27/21 09:30 Proposed Procedures p Cardiac Cath Procedure - Yunior Avila DO Operation Date: 12/28/21 10:30 Proposed Procedures p Endoscopic Ultrasonography Upper - Brock Bates DO s Endoscopic Retrograde Cholangiopancreatogram - Brock Bates DO Operation Date: 12/29/21 08:00 Proposed Procedures p Laparoscopic Cholecystectomy Possible Open, Possible Cholangiogram - Felipe Lew DO Height/Weight Height: 5 ft 2 in Weight: 64.4 kg Allergies Allergy/AdvReac Type Severity Reaction Status Date / Time clopidogrel [From Plavix] Allergy Severe facial Verified 12/26/21 19:01 swelling, itching ticagrelor [From Brilinta] Allergy Severe facial Verified 12/26/21 19:01 swelling, itching oxycodone Allergy Intermediate itching Verified 12/26/21 19:01 Medications Home Medications Medication Instructions Recorded Confirmed Last Taken atorvastatin 10 mg tablet 20 mg PO QPM 08/26/20 12/26/21 12/25/21 fluoxetine 40 mg capsule 40 mg PO QAM 08/26/20 12/26/21 12/26/21 ipratropium bromide 17 2 puff INHALATION QID 08/26/20 12/26/21 12/26/21 12:00 mcg/actuation HFA aerosol inhaler nitroglycerin 0.4 mg sublingual 0.4 mg SUBLINGUAL Q5M PRN 08/26/20 12/26/21 Unknown tablet (Nitrostat) sacubitril 97 mg-valsartan 103 mg 1 tab PO BID 08/26/20 12/26/21 12/26/21 08:00 tablet (Entresto) warfarin 2.5 mg tablet See Rx Instructions .ROUTE 08/26/20 12/26/21 12/25/21 .COMPLEX tab amlodipine 2.5 mg tablet 2.5 mg PO QAM 09/30/21 12/26/21 12/26/21 famotidine 20 mg tablet 20 mg PO HS 09/30/21 12/26/21 12/25/21 fluticasone furoate 100 1 inh INHALATION QAM 09/30/21 12/26/21 12/26/21 mcg-vilanterol 25 mcg/dose inhalation powder (Breo Ellipta) mirtazapine 45 mg tablet 45 mg PO HS 09/30/21 12/26/21 12/25/21 pantoprazole 40 mg tablet,delayed 40 mg PO BID 09/30/21 12/26/21 12/26/21 08:00 release alendronate 70 mg tablet 70 mg PO WK 12/26/21 12/26/21 Unknown aspirin 81 mg chewable tablet 81 mg PO DAILY 12/26/21 12/26/21 12/26/21 buspirone 30 mg tablet 30 mg PO BID 12/26/21 12/26/21 12/26/21 08:00 hydrocodone 7.5 mg-acetaminophen 1 tab PO Q8H PRN 12/26/21 12/26/21 Unknown 325 mg tablet metoprolol succinate 25 mg 25 mg PO BID 12/26/21 12/26/21 12/26/21 08:00 tablet,extended release 24 hr Active Medications Generic Name Dose Route Start Last Admin Trade Name Freq PRN Reason Stop Dose Admin Hydrocodone Bitart/Acetaminophen 1 tab 12/27/21 01:36 12/29/21 00:28 Hydrocodone/Acetaminophen 7.5/325mg Tab PO 01/10/22 01:35 1 tab Q8H PRN Administration Pain Amlodipine Besylate 2.5 mg 12/27/21 09:00 12/28/21 09:30 Amlodipine Besylate 5 Mg Tab PO 01/26/22 08:59 Not Given QAM BELLO Aspirin 81 mg 12/27/21 09:00 12/28/21 09:30 Aspirin 81 Mg Chew PO 01/26/22 08:59 Not Given DAILY BELLO Atorvastatin Calcium 20 mg 12/27/21 21:00 12/28/21 23:10 Atorvastatin 20 Mg Tab PO 01/26/22 20:59 20 mg QPM BELLO Administration Buspirone HCl 30 mg 12/27/21 09:00 12/28/21 23:10 Buspirone 15 Mg Tab PO 01/26/22 08:59 30 mg BID BELLO Administration Famotidine 20 mg 12/27/21 21:00 12/28/21 23:10 Famotidine 20 Mg Tab PO 01/26/22 20:59 20 mg HS BELLO Administration Fluoxetine HCl 40 mg 12/27/21 09:00 12/28/21 09:30 Fluoxetine Hcl 20 Mg Cap PO 01/26/22 08:59 Not Given QAM BELLO Fluticasone/Vilanterol 1 puffs 12/27/21 09:00 12/28/21 09:31 Fluticasone/Vilanterol 100/25mcg 14 Puffs/Inhaler INH 01/26/22 08:59 Not Given QAM BELLO Piperacillin Sod/Tazobactam 115 mls @ 28.75 mls/hr 12/27/21 04:00 12/29/21 04:01 Sod 3.375 gm/ Dextrose IV 01/06/22 03:59 28.8 mls/hr Q8H BELLO Administration Protocol Lactated Ringer's 1,000 mls @ 150 mls/hr 12/28/21 13:34 12/29/21 04:46 Lr IV 01/27/22 13:33 150 mls/hr .Q6H40M BELLO Administration Promethazine HCl 12.5 mg/ 50.5 mls @ 202 mls/hr 12/28/21 22:29 12/29/21 00:28 Sodium Chloride IV 01/27/22 22:28 Infused Q6H PRN Infusion Nausea And Vomiting Metoprolol Succinate 25 mg 12/27/21 09:00 12/28/21 23:09 Metoprolol Succ 25mg Ext Rel Tab PO 01/26/22 08:59 25 mg BID BELLO Administration Mirtazapine 45 mg 12/27/21 21:00 12/28/21 23:09 Mirtazapine Soltab 15 Mg PO 01/26/22 20:59 45 mg HS BELLO Administration Morphine Sulfate 2 mg 12/29/21 03:54 12/29/21 04:05 Morphine Sulfate 2 Mg/Ml Carp IV 01/12/22 03:53 2 mg Q3H PRN Administration Pain Ondansetron HCl 4 mg 12/27/21 01:36 12/28/21 19:31 Ondansetron Inj 2 Mg/Ml 2 Ml Vial IV 01/26/22 01:35 4 mg Q6H PRN Administration Nausea Pantoprazole Sodium 40 mg 12/27/21 09:00 12/28/21 23:09 Pantoprazole 40 Mg Tab PO 06/16/22 08:59 40 mg BID BELLO Administration Sacubitril/Valsartan 1 tab 12/27/21 09:00 12/28/21 23:09 Valsartan/Sacubitril 103/97mg Tab PO 01/26/22 08:59 1 tab BID BELLO Administration NPO Date Last Intake of Fluids: 12/28/21 Time Last Intake of Fluids: 11:30 Last Intake of Fluids Comment: sip with meds Date Last Intake of Solids: 12/25/21 Time Last Intake of Solids: 22:00 Past Medical History Medical History Anxiety Anxiety disorder Aphasia, mixed CAD (coronary artery disease) follows with Elton Lee PA-C. CHF (congestive heart failure) COPD (chronic obstructive pulmonary disease) CVA (cerebral vascular accident) 2004; dysphagia, some expressive/receptive aphasia, improved with speech therapy Depression Dysphagia GERD (gastroesophageal reflux disease) History of anesthesia reaction pt has some expressive aphasia r/t previous stroke, had difficult time explaining anesthesia problem. says she had difficulty breathing coming out of anesthesia in past. unable to elaborate beyond that. says occurence x 1 while living in [place]. History of myocardial infarction 1991 HLD (hyperlipidemia) HTN (hypertension) Osteoarthritis Osteoporosis Poor historian poor memory Throat fullness reason for EGD Exercise / Class Metabolic Activity II 4-5 Yardwork/Stairs/Walk up hill Past Surgical History Surgical History H/O heart artery stent 5 stents (thinks last placed in 2019) History of cardiac catheterization multiple (believes most recent was in 2019 while living in [place]) History of heart valve replacement 09/2019 while living in [place] History of open heart surgery Sep 23, 2019 History of tonsillectomy History of wisdom tooth extraction Past Anesthesia History No Hx of Anesthesia Complications and No Family Hx of Anesthesia Complications History of PONV No Hx of PONV and No Hx of Motion Sickness Social History Smoking Status: Former smoker Do You Dip or Chew Tobacco: No Smoking End Date: 1 year ago Hx Alcohol Use: No Alcohol type: wine Hx Substance Use: No substance use type: does not use Review of Systems denies fever/cough/ colds/ chest pain/ SOB/ ZHENG denies ZHENG Physical Exam Vital Signs Last Vital Signs Temp 36.6 C 12/29/21 07:14 Pulse 73 12/29/21 07:14 Resp 16 12/29/21 07:14 BP 143/85 H 12/29/21 07:14 Pulse Ox 95 12/29/21 07:14 ENMT Mouth: + dentures; no TMJ abnormality and no dentition abnormality Thyromental Distance: > or= 3.5 Finger Breadths Mallampati Class: II Neck neck extension not limited Respiratory normal respiratory effort; no respiratory distress Auscultation: lungs clear to auscultation bilaterally Cardiovascular Rate/Rhythm: regular rate and regular rhythm Neurologic moves all extremities Psychiatric Orientation: alert and oriented x 3 Testing Laboratory Results 12/29/21 05:40 12/29/21 05:40 PT 11.5 Seconds (9.0-12.0) 12/29/21 05:40 INR 1.1 (0.9-1.1) 12/29/21 05:40 APTT 31.7 Seconds (21.0-31.0) H 12/26/21 19:37 Electrocardiogram Date: 12/27/21 Findings: + NSR @ (67) and + AK (septal infarct) Echocardiogram Date: 12/27/21 EF: 45-50 RWMA: + hypokinetic (apical) Other Findings: + diastolic dysfunction (grade 2) Valvular Disease: + MR (moderate) bioprosthetic aortic valve, mild TR, mildly reduced RV systolic function Other Testing CT angio chest dissec wo/w con CLINICAL HISTORY: back pain TECHNIQUE: Multidetector row helical CT of the chest was performed before and after injection of IV contrast. Coronal and sagittal reformations were obtained. Automated dose lowering techniques and/or adjustment according to patient size were utilized for this exam. CT DOSE: 1044.50 mGy.cm Comparison: None available at the time of this dictation. FINDINGS: Lungs and pleura: Diffuse centrilobular emphysema is seen most prominent in the upper lobes. Atelectasis versus scarring is seen in the left greater than right lower lobe. Heart and pericardium: There is mild cardiomegaly without evidence of pericardial effusion. Vessels: Severe atherosclerotic changes in the aorta and coronary arteries. Aortic valvular replacement is seen. No evidence of aortic dissection. Mediastinum and wu: Subcentimeter lymph nodes are seen. There is patulous dilation of the esophagus. Chest wall and lower neck: Unremarkable. Abdomen: For findings below the diaphragm, please refer to CT of the abdomen dated the same. Bones: Degenerative changes in the thoracic spine. IMPRESSION: 1. No acute abnormality and in particular no evidence of acute aortic injury. 2. Emphysema and scarring and patulous dilation of the esophagus. This is nonspecific but can be seen in scleroderma. ACT 112: Negative or not required by law. Electronically signed by: Yemi Kirby M.D. 12/27/2021 10:08 AM Dictated:12/27/21 0957 Transcribed: 12/27/21 0957
--- NOTE | 2021-12-29 08:51 | Gastroenterology Progress Note ---
Date of Service December 29, 2021 Assessment & Plan (1) Acute cholecystitis: Plan: 66 year old female admitted w/ pain, nausea/vomiting, imaging concerning for cholecystitis, elevated transaminases s/p EGD/EUS/ERCP for stone extraction, stent placement, LFTs improving Avoid aspirin and nonsteroidal anti-inflammatory medicines for 5 days. Use broad spectrum antibiotics for 10 days. Repeat ERCP in 6 weeks to remove stent. Appreciate general surgery evaluation Antiemetics PRN Analgesia PRN Will sign off. Thank you for allowing us to participate in the care of this patient. Please call with any acute changes, questions or concerns. Please see a ddendum below with additional recommendation from my supervising physician. Admission and Anticipated Discharge Date Admission Date: December 26, 2021 Supervising Physician Co-Signing Physician Notes I saw and evaluated the patient. She reports that she is doing fairly well after her ERCP yesterday and cholecystectomy today. It appears that her liver enzymes are improving significantly. With regard to repeat ERCP we will plan to do a follow-up study in 6 to 8 weeks to remove the biliary stent that was placed yesterday. Please call with any questions or concerns. Subjective Patient out of room despite two attempts. She was not seen or evaluated. Chart was reviewed. S/P EGD/EUS/ERCP for stone extraction. Liver function test are improving. EGD: The examined esophagus was normal. The Z-line was regular and was found 36 cm from the incisors. A single 4 mm angiodysplastic lesion with no bleeding was found in the cardia. The gastric body, incisura and gastric antrum were normal. The duodenal bulb was normal. A single 4 mm angiodysplastic lesion without bleeding was found in the second portion of the duodenum. The third portion of the duodenum was normal. EUS: - There was no sign of significant pathology in the ampulla. - Two stones were visualized endosonographically in the lower third of the main bile duct. - Multiple stones were visualized endosonographically in the gallbladder. - Hyperechoic material consistent with sludge was visualized endosonographically in the gallbladder. - There was no evidence of significant pathology in the visualized portion of the liver. - There was no sign of significant pathology in the entire pancreas. - Endosonographic images of the left adrenal gland were unremarkable. - No specimens collected. ERCP:The major papilla appeared to be small. - Biliary papillary stenosis, benign. - Choledocholithiasis was found. Complete removal was accomplished by biliary sphincterotomy and balloon extraction. - One biliary stent was placed into the common bile duct. - One pancreatic stent was placed into the ventral pancreatic duct. - Indomethacin given to decrease risk of post-ERCP pancreatitis. Results & Data ([facility]) Vital Signs (Past 12 Hours) Vital Signs Temp Pulse Pulse Resp BP Pulse Ox 12/29/21 07:14 36.6 C 73 16 143/85 H 95 12/29/21 07:07 69 12/29/21 06:44 36.5 C 74 18 137/82 92 12/29/21 03:11 36.8 C 74 18 131/75 92 12/28/21 23:31 36.9 C 78 20 165/92 H 95 12/28/21 22:17 73
[2021-12-29] MEDS ORDERED: ROCURONIUM BROMIDE 10 MG/ML 5 ML VIAL IV ONE (09:05)
[2021-12-29] MEDS ORDERED: ONDANSETRON INJ 2 MG/ML 2 ML VIAL ONE (09:16)
[2021-12-29] MEDS ORDERED: DEXAMETHASONE SOD INJ 4 MG/ML VIAL ONE (09:16)
[2021-12-29] MEDS ORDERED: GLYCOPYRROLATE 0.2 MG/ML VIAL ONE (09:20)
[2021-12-29] MEDS ORDERED: NEOSTIGMINE METHYLSULFATE 1 MG/ML 10ML VIAL ONE (09:20)
[2021-12-29] MEDS ORDERED: FLOSEAL HEMOSTATIC MATRIX 10ML TOP ONE (09:30)
--- NOTE | 2021-12-29 09:52 | Post Operative Brief Note ---
PG Immediate Post Op with CF Date of Surgery December 29, 2021 Pre & Post Diagnosis Operation Date: 12/29/21 08:00 Pre-Op Diagnosis: Acute cholecystitis, choledocholithiasis Post-Op Diagnosis: Acute cholecystitis, choledocholithiasis I identified the patient and participated in the time-out.: Yes Procedure Operation Date: 12/29/21 08:00 Actual Procedures p Laparoscopic Cholecystectomy (Not Applicable) - Felipe Lew DO Surgeon Felipe Lew DO Title Camera Operator Edu Patricio PA-C Estimated Blood Loss 25 Findings See Below Acutely inflamed edematous gallbladder Specimens Specimen Description: A: Gallbladder and Contents Anesthesia Type General Complications none Disposition Disposition: Recovery Room
--- NOTE | 2021-12-29 09:55 | Operative Report ---
PG Post Operative Report Pre & Post Diagnosis Operation Date: 12/29/21 08:00 Pre-Op Diagnosis: Acute cholecystitis, choledocholithiasis Post-Op Diagnosis: Acute cholecystitis, choledocholithiasis I identified the patient and participated in the time-out.: Yes Procedure Operation Date: 12/29/21 08:00 Actual Procedures p Laparoscopic Cholecystectomy (Not Applicable) - Felipe Lew DO Surgeon Felipe Lew DO Daycare Provider Edu Patricio PA-C Estimated Blood Loss 25 Findings See Below Acutely inflamed edematous gallbladder Fluids see anesthesia record Specimens Gallbladder to pathology Drains None Anesthesia Type General Complications none Disposition Disposition: Recovery Room Indications 66-year-old female with acute cholecystitis and choledocholithiasis status post ERCP and stent placement Description of Procedure The patient was brought to the operating room and placed in the supine position with both arms extended. At this time she underwent general endotracheal anesthesia without any problems. She was given appropriate pre-operative antibiotics. Her abdomen prepped and draped in the usual sterile fashion. A timeout was called, the procedure was verified as Laparoscopic cholecystectomy, possible open, possible intra-operative cholangiogram. Surgical, nursing and anesthesia teams agreed and the procedure was begun. After injection of 0.25% Marcaine with epinephrine, a supraumbilical vertical incision was made and carried down to the fascia using S-retractors. The abdominal wall was then elevated with towel clamps and abdomen entered using the Veress needle confirming position using the saline drop test. Pneumoperitoneum was established. 5mm trocar was placed. Laparoscope was introduced. No injury from entry into the abdomen was visualized after inspection of the abdomen. Three further ports were placed under direct visualization. One 11mm in the subxiphoid region and two 5mm in the RUQ. At this time the abdomen was inspected and the gallbladder identified. The gallbladder itself was distended, inflamed and edematous consistent with acute cholecystitis. The gallbladder fundus was grasped and retracted cephalad. The gallbladder infundibulum was then grasped and retracted laterally. The cystic duct and cystic artery were then identified and skeletonized. The critical view of safety was obtained. They were both then clipped twice proximally and once distally and then divided using scissors. The gallbladder was then taken off of the liver bed using electrocautery and placed in an endocatch bag and removed from the subxiphoid port. Some bleeding from the liver was cauterized. At this point Floseal was placed into the gallbladder fossa. The liver bed was then inspected and no bile leak or bleeding was evident. The subxiphoid port was then closed using 0- Vicryl using the suture passer. The trocars were then removed under direct visualization and no bleeding was present. Abdomen was desufflated. The skin was then closed using 4-0 Monocryl in a subcuticular fashion. Surgical glue was applied. Needle and sponge counts were correct x 2. At this time the patient was awoken from anesthesia and extubated having remained stable throughout the entire case. The patient was then transported to PACU in stable condition. The physician payroll human resources assistant was present scrubbed for the entirety of the case. He was essential in positioning, prepping and draping the patient, driving the laparoscope, retraction and exposure, closure of the incisions and placement the dressings. I attest to the content of the Intraoperative Record and any orders documented therein. Any exceptions are noted below.
[2021-12-29] MEDS ORDERED: ALBUT/IPRATROP 3MG/0.5MG NEB 3 ML VIAL NEB STA (10:36)
[2021-12-29] MEDS ORDERED: ALBUT/IPRATROP 3MG/0.5MG NEB 3 ML VIAL ONE (10:39)
--- NOTE | 2021-12-29 10:42 | Anesthesiology Progress Note ---
Date of Service December 29, 2021 Anesthesia Post Procedure Vital Signs Vital Signs: Temp Pulse Pulse Resp BP BP Pulse Ox 12/29/21 10:30 76 23 148/80 H 91 12/29/21 10:20 79 23 161/90 H 94 12/29/21 10:10 93 H 23 153/97 H 94 12/29/21 10:00 36.7 C 106 H 21 174/105 H 90 12/29/21 07:14 36.6 C 73 16 143/85 H 95 12/29/21 07:07 69 12/29/21 06:44 36.5 C 74 18 137/82 92 12/29/21 03:11 36.8 C 74 18 131/75 92 12/28/21 23:31 36.9 C 78 20 165/92 H 95 12/28/21 22:17 73 12/28/21 19:39 36.5 C 69 18 168/93 H 94 12/28/21 15:04 36.6 C 74 18 163/91 H 92 12/28/21 14:30 36.8 C 78 16 161/88 H 94 12/28/21 14:15 36.8 C 75 16 155/84 H 93 12/28/21 14:05 71 16 144/87 H 93 12/28/21 13:55 36.4 C L 71 20 154/81 H 93 12/28/21 13:45 71 20 153/78 H 93 12/28/21 13:35 67 17 149/78 H 95 12/28/21 13:25 69 22 149/78 H 94 12/28/21 13:15 69 21 151/80 H 95 12/28/21 13:08 36.0 C L 76 16 145/83 H 94 Transfer of Care Handoff Completed per policy Notes Mental Status: alert / awake / arousable and participated in evaluation Patient Amnestic to Procedure: Yes Nausea / Vomiting: adequately controlled Pain: adequately controlled Airway Patency, RR, SpO2: stable & adequate BP & HR: stable & adequate Hydration State: stable & adequate Anesthetic Complications: no major complications apparent and Pt Satisfied with anesthetic care
[2021-12-29] MEDS: PANTOprazole 40 MG TAB PO SCH ×2 (11:51→20:28)
[2021-12-29] MEDS: FLUTICASONE/VILANTEROL 100/25MCG 14 PUFFS/INHALER INH SCH (11:51)
[2021-12-29] MEDS: METOPROLOL SUCC 25MG EXT REL TAB PO SCH ×2 (11:51→20:25)
[2021-12-29] MEDS: busPIRone 15 MG TAB PO SCH ×2 (11:51→20:24)
[2021-12-29] MEDS: VALSARTAN/SACUBITRIL 103/97MG TAB PO SCH ×2 (11:52→20:29)
[2021-12-29] MEDS: FLUoxetine HCL 20 MG CAP PO SCH (11:52)
[2021-12-29] MEDS: ASPIRIN 81 MG CHEW PO SCH (11:52)
[2021-12-29] MEDS: amLODIPine BESYLATE 5 MG TAB PO SCH (12:51)
--- NOTE | 2021-12-29 18:24 | Hospitalist Progress Note ---
Date of Service December 29, 2021 Assessment & Plan (1) Acute cholecystitis: Plan: 66-year-old female who presents with right upper quadrant abdominal pain radiating to the chest, questionable near syncope and found to have cholecystitis. #. Acute cholecystitis #. Transaminitis #. CBD stones Patient presented 12/27 with right upper quadrant abdominal pain radiating to the chest and questionable near syncope, found to have cholecystitis in the ED. Admitting echo: EF 45 to 50%, grade 2 diastolic dysfunction[address] Admitting head CT: No acute findings. Admitting abdomen x-ray: Nonobstructive bowel gas pattern. Admitting GB US: Suggestive of acute cholecystitis. 12/27 MRCP: Suggestive of acute cholecystitis. No gallstone or choledocholithiasis seen. 12/27 CTAP: Suggestive of acute cholecystitis. 12/27 CTA chest: No evidence of acute aortic injury. Chronic changes in esophagus. 12/28 EUS: 2 stones were visualized in the lower third of the main bile duct. Multiple stones in the gallbladder. No specimens collected. 12/28 ERCP with EUS: Benign biliary papillary stenosis. Choledocholithiasis noted status post complete removal by biliary sphincterotomy and balloon extraction. One biliary stent was placed into CBD. One pancreatic stent was placed into ventral pancreatic duct. Indomethacin given to decrease risks of post ERCP pancreatitis. 12/29: s/p lap derek Cardiology preop evaluation, obtained chest CT and abdomen pelvis CTA: Negative for any aortic dissection, obtained echo. Aspirin must not be interrupted given history of multiple PCI's. Okay to hold warfarin from cardiac standpoint but will require bridging after invasive procedure completed. Continue with metoprolol throughout the perioperative period Entresto may be held if necessary. GI evaluated, repeat ERCP for stent removal in 6 weeks. Avoid NSAIDs and aspirin for 5 days. Clear liquid diet, advance diet per surgery recs. Pain management antibiotics and nausea control. Antibiotics for total of 10 days. Resume Coumadin and bridging heparin drip when bleeding breaks deemed minimal per surgery. LFT improving, pain under control, continue to monitor LFT. #. Questionable near syncope: Echo and troponin trend reviewed. WNL. Cardiology evaluated. Continue with telemetry. #. Other chronic medical conditions: CAD status post multiple stents and coronary artery bypass grafting, paroxysmal A. fib, chronic systolic CHF, embolic CVA, history of aphasia, GERD, depression, HLD, HTN, chronic obstructive pulmonary disease, status post bioprosthetic aortic valve placement Continue with/resume home meds as and when appropriate. #. DVT prophylaxis: Resume heparin bridge and home Coumadin when bleeding lower extremity minimal by surgery. #. DISPOSITION: Closely monitor in the med-tele. PT/OT prior to discharge. Social service to help with discharge planning. Likely DC in next 1 to 2 days. Admission and Anticipated Discharge Date Admission Date: December 26, 2021 Subjective Patient seen and examined at bedside for follow-up of transaminitis and cholecystitis. Patient was lying in bed, on 3 L nasal cannula oxygen, appearing ill and frail, more awake today, had lap derek in the morning, n.p.o., reports pain under control, reports no nausea & no vomiting. Denies headache/dizziness/chest pain/palpitation/other review of symptoms. Physical Exam Physical Exam: GENERAL: Alert and oriented x3. NAD, on 3L NC O2. ill and frail appearing. HEENT: No pallor, no icterus. Pupils equal, round and reactive to light. Oral mucosa moist. NECK: No JVD, no neck masses. HEART: S1 and S2 heard. Regular rate and rhythm. SM at A and P area, no gallop. RESPIRATORY SYSTEM: Normal AP diameter. No accessory muscle use. No wheezing, no crackles. ABDOMEN: Soft, bowel sounds present, RUQ tender improved, deep palpation not tried, lap derek ports with clean dressing, no distention. CENTRAL NERVOUS SYSTEM: No facial droop. Speech is clear. Obeys simple commands. Moves extremities. EXTREMITIES: No edema, no erythema seen. Results & Data Results & Data ([facility]) Vital Signs (Past 12 Hours) Vital Signs Temp Pulse Pulse Resp BP Pulse Ox 12/29/21 15:37 75 12/29/21 15:00 36.8 C 80 18 138/86 90 12/29/21 13:33 36.7 C 76 18 148/81 H 92 12/29/21 12:42 36.7 C 73 18 149/80 H 90 12/29/21 12:12 36.7 C 72 18 146/86 H 90 12/29/21 11:35 36.3 C L 70 18 138/87 90 12/29/21 11:00 36.0 C L 71 21 142/87 H 88 L 12/29/21 10:50 71 19 154/90 H 93 12/29/21 10:40 72 22 154/85 H 89 L 12/29/21 10:30 76 23 148/80 H 91 12/29/21 10:20 79 23 161/90 H 94 12/29/21 10:10 93 H 23 153/97 H 94 12/29/21 10:00 36.7 C 106 H 21 174/105 H 90 12/29/21 07:14 36.6 C 73 16 143/85 H 95 12/29/21 07:07 69 12/29/21 06:44 36.5 C 74 18 137/82 92
[2021-12-29] MEDS: ATORVASTATIN 20 MG TAB PO SCH (20:23)
[2021-12-29] MEDS: FAMOTIDINE 20 MG TAB PO SCH (20:25)
[2021-12-29] MEDS: MIRTAZAPINE SOLTAB 15 MG PO SCH (20:26)
[2021-12-29] MEDS ORDERED: HYDROmorphone INJ 0.5 MG/0.5 ML SYR IV PRN (23:48)
[2021-12-30] MEDS: HYDROCODONE/ACETAMINOPHEN 7.5/325MG TAB PO PRN ×3 (00:04→15:07)
[2021-12-30] MEDS: LACTATED RINGER'S 1,000 ML IV SCH (01:51)
[2021-12-30] MEDS: PIPERACILLIN/TAZOBACTAM 3.375 GM in DEXTROSE 5% 100 ML IV SCH ×3 (03:31→20:58)
[2021-12-30 06:13] LABS: Basophils # (auto) 0.01 K/uL (0-0.2); Basophils % (auto) 0.1 %; Eosinophils # (auto) 0.02 K/uL (0-0.5); Eosinophils % (auto) 0.2 %; Hematocrit (blood only) 34.3 % (37-47); Hemoglobin 11.1 g/dL (12.0-16.0); Immature Granulocytes # (auto) 0.02 K/uL (0.00-0.02); Immature Granulocytes % (auto) 0.2 %; Lymphocytes # (auto) 0.76 K/uL (1.2-3.4); Lymphocytes % (auto) 6.9 %; Mean Corpuscular Hemoglobin 28.8 pg (25-34); Mean Corpuscular Hgb Conc 32.4 g/dL (32-36); Mean Corpuscular Volume 88.9 fL (80-100); Mean Platelet Volume 11.2 fL (7.4-10.4); Monocytes # (auto) 0.91 K/uL (0.11-0.59); Monocytes % (auto) 8.3 %; Neutrophils % (auto) 84.3 %; Platelet Count 227 K/uL (130-400); RDW Standard Deviation 48.4 fL (36.4-46.3); Red Blood Count 3.86 M/uL (4.2-5.4); White Blood Count 11.02 K/uL (4.8-10.8)
[2021-12-30 06:15] LABS: INR 1.1 (0.9-1.1); Prothrombin Time 11.5 Seconds (9.0-12.0)
[2021-12-30 06:33] LABS: BUN Creatinine Ratio 9.6 (10-20); Calcium 8.2 mg/dl (8.5-10.1); Creatinine Clr Calc Pharmacy 64.8 ml/min; Est GFR (African American) 98.1 ml/min; Est GFR (Non-African American) 84.6 ml/min; Magnesium 1.7 mg/dl (1.7-2.4); Potassium 3.2 mmol/L (3.5-5.1)
[2021-12-30] MEDS ORDERED: POTASSIUM CHLORIDE CRTAB 20 MEQ TABCR PO STA (07:57)
[2021-12-30] MEDS ORDERED: MAGNESIUM SULFATE / D5W 1 GM/100 ML BAG IV ONE (07:57)
[2021-12-30] MEDS: ASPIRIN 81 MG CHEW PO SCH (08:00)
[2021-12-30] MEDS: FLUoxetine HCL 20 MG CAP PO SCH (08:00)
[2021-12-30] MEDS: PANTOprazole 40 MG TAB PO SCH ×2 (08:01→21:01)
[2021-12-30] MEDS: METOPROLOL SUCC 25MG EXT REL TAB PO SCH ×2 (08:01→21:00)
[2021-12-30] MEDS: amLODIPine BESYLATE 5 MG TAB PO SCH (08:01)
[2021-12-30] MEDS: VALSARTAN/SACUBITRIL 103/97MG TAB PO SCH ×2 (08:01→21:01)
[2021-12-30] MEDS: busPIRone 15 MG TAB PO SCH ×3 (08:01→20:59)
--- NOTE | 2021-12-30 09:07 | Surgery Progress Note ---
Date of Service December 30, 2021 Assessment & Plan (1) Acute cholecystitis: Plan: Doing well postoperative day 1 laparoscopic cholecystectomy for acute cholecystitis and choledocholithiasis Advance her diet as tolerated No need for antibiotics from a surgical standpoint, will defer to GI if she needs antibiotics due to her recent ERCP Hemoglobin 11.7 down to 11.1 this a.m., stable Okay to restart anticoagulation today from a surgical standpoint She is stable to be discharged from a surgical standpoint today as long as she tolerates her diet I will arrange for follow-up in my office in 2 weeks Please call with any questions or concerns Admission and Anticipated Discharge Date Admission Date: December 26, 2021 Subjective Patient seen and examined. Afebrile. No acute events overnight. Tolerating clear liquids. Abdominal pain controlled and improved. No nausea or vomiting. Physical Exam Constitutional: WD/WN, vitals as above Gastrointestinal (Abdomen): Inspection/Auscultation: abdomen not distended Percussion/Palpation: abdomen soft Minimally tender to palpation, dressings clean dry and intact Results & Data ([facility]) Vital Signs (Past 12 Hours) Vital Signs Temp Pulse Pulse Resp BP Pulse Ox 12/30/21 07:11 70 12/30/21 06:44 36.5 C 63 18 154/81 H 92 12/30/21 03:38 36.6 C 65 18 149/70 H 95 12/29/21 23:58 36.3 C L 74 18 157/81 H 92 12/29/21 22:17 69 PG Care Time/CCT Total # of Minutes Spent Total Time Spent with Patient: Total time spent is greater than 50% in coordination of care (as documented) at patient's floor/unit and/or counseling patient: Coding Level of Care Code None Diagnoses Acute cholecystitis K81.0
[2021-12-30] MEDS ORDERED: Nursing to Pharmacy Communication SCH (09:15)
[2021-12-30] MEDS ORDERED: Heparin IV Adult Wt-Based Low-Dose WITH Bolus Protocol IV STA (09:38)
[2021-12-30 10:37] LABS: Partial Thromboplastin Ratio 0.9; Partial Thromboplastin Time 25.7 Seconds (21.0-31.0)
[2021-12-30] MEDS ORDERED: Heparin IV Adult Wt-Based Low-Dose *NO* Bolus Protocol IV SCH (11:25)
[2021-12-30] MEDS: HEPARIN SODIUM/DEXTROSE 25,000 UNITS/500 ML BAG IV SCH (11:33)
[2021-12-30] MEDS: FLUTICASONE/VILANTEROL 100/25MCG 14 PUFFS/INHALER INH SCH (11:33)
[2021-12-30] MEDS: WARFARIN SOD 2.5 MG TAB PO SCH (15:08)
[2021-12-30] MEDS ORDERED: WARFARIN SOD 1.25 MG TAB PO SCH (16:00)
--- NOTE | 2021-12-30 16:57 | Hospitalist Progress Note ---
Date of Service December 30, 2021 Assessment & Plan (1) Acute cholecystitis: Plan: 66-year-old female who presents with right upper quadrant abdominal pain radiating to the chest, questionable near syncope and found to have cholecystitis. #. Acute cholecystitis #. Transaminitis #. CBD stones Patient presented 12/27 with right upper quadrant abdominal pain radiating to the chest and questionable near syncope, found to have cholecystitis in the ED. Admitting echo: EF 45 to 50%, grade 2 diastolic dysfunction. Admitting head CT: No acute findings. Admitting abdomen x-ray: Nonobstructive bowel gas pattern. Admitting GB US: Suggestive of acute cholecystitis. 12/27 MRCP: Suggestive of acute cholecystitis. No gallstone or choledocholithiasis seen. 12/27 CTAP: Suggestive of acute cholecystitis. 12/27 CTA chest: No evidence of acute aortic injury. Chronic changes in esophagus. 12/28 EUS: 2 stones were visualized in the lower third of the main bile duct. Multiple stones in the gallbladder. No specimens collected. 12/28 ERCP with EUS: Benign biliary papillary stenosis. Choledocholithiasis noted status post complete removal by biliary sphincterotomy and balloon extraction. One biliary stent was placed into CBD. One pancreatic stent was placed into ventral pancreatic duct. Indomethacin given to decrease risks of post ERCP pancreatitis. 12/29: s/p lap derek Cardiology preop evaluation, obtained chest CT and abdomen pelvis CTA: Negative for any aortic dissection, obtained echo. Aspirin must not be interrupted given history of multiple PCI's. Okay to hold warfarin from cardiac standpoint but will require bridging after invasive procedure completed. Continue with metoprolol throughout the perioperative period Entresto may be held if necessary. GI evaluated, repeat ERCP for stent removal in 6 weeks. Tolerating diet, Pain control better. Pain management antibiotics and nausea control. Antibiotics for total of 10 days. Resumed Coumadin and bridging heparin drip 12/30 LFT improving, pain under control, continue to monitor LFT. Will need OP f/u Sx in 2 weeks. Transition to oral ATB from [place]. #. Questionable near syncope: Echo and troponin trend reviewed. WNL. Cardiology evaluated. Continue with telemetry. #. Other chronic medical conditions: CAD status post multiple stents and coronary artery bypass grafting, paroxysmal A. fib, chronic systolic CHF, embolic CVA, history of aphasia, GERD, depression, HLD, HTN, chronic obstructive pulmonary disease, status post bioprosthetic aortic valve placement Continue with/resume home meds as and when appropriate. #. DVT prophylaxis: Resumed heparin bridge and home Coumadin. #. DISPOSITION: Closely monitor in the med-tele. PT/OT rec is home w/ fam support.. Social service to help with discharge planning. Likely DC in next 1 to 2 days. Admission and Anticipated Discharge Date Admission Date: December 26, 2021 Subjective Patient seen and examined at bedside for follow-up of transaminitis and cholecystitis. Patient was working with PT, on 3 L nasal cannula oxygen, looking better and stronger today, had lap derek on 12/29, advance diet as tolerated., reports pain under control, reports no nausea & no vomiting. Denies headache/dizziness/chest pain/palpitation/other review of symptoms. Physical Exam Physical Exam: GENERAL: Alert and oriented x3. NAD, on 3L NC O2. HEENT: No pallor, no icterus. Pupils equal, round and reactive to light. Oral mucosa moist. NECK: No JVD, no neck masses. HEART: S1 and S2 heard. Regular rate and rhythm. SM at A and P area, no gallop. RESPIRATORY SYSTEM: Normal AP diameter. No accessory muscle use. No wheezing, no crackles. ABDOMEN: Soft, bowel sounds present, RUQ tender improved, deep palpation not tried, lap derek ports with clean dressing, no distention. CENTRAL NERVOUS SYSTEM: No facial droop. Speech is clear. Obeys simple commands. Moves extremities. EXTREMITIES: No edema, no erythema seen. Results & Data Results & Data ([facility]) Vital Signs (Past 12 Hours) Vital Signs Temp Pulse Pulse Resp BP Pulse Ox 12/30/21 16:13 71 12/30/21 15:25 36.6 C 61 18 128/77 91 12/30/21 11:06 36.5 C 59 L 18 135/82 90 12/30/21 07:11 70 12/30/21 06:44 36.5 C 63 18 154/81 H 92
[2021-12-30 18:02] LABS: Partial Thromboplastin Ratio 1.2; Partial Thromboplastin Time 33.3 Seconds (21.0-31.0)
[2021-12-30] MEDS ORDERED: HEPARIN SOD (PORCINE) 1000 UNIT/ML IV ONE (19:00)
[2021-12-30] MEDS: ATORVASTATIN 20 MG TAB PO SCH (20:59)
[2021-12-30] MEDS: FAMOTIDINE 20 MG TAB PO SCH (20:59)
[2021-12-30] MEDS: MIRTAZAPINE SOLTAB 15 MG PO SCH (21:00)
[2021-12-31 01:51] LABS: Partial Thromboplastin Ratio 2.1
[2021-12-31 01:57] LABS: Partial Thromboplastin Time 58.1 Seconds (21.0-31.0)
[2021-12-31] MEDS: AMOXICILLIN/CLAVULANATE 875 MG TAB PO SCH ×2 (05:15→16:46)
[2021-12-31] MEDS: HYDROCODONE/ACETAMINOPHEN 7.5/325MG TAB PO PRN ×2 (05:33→20:13)
[2021-12-31 06:20] LABS: Hematocrit (blood only) 38.2 % (37-47); Hemoglobin 12.3 g/dL (12.0-16.0); Mean Corpuscular Hemoglobin 29.1 pg (25-34); Mean Corpuscular Hgb Conc 32.2 g/dL (32-36); Mean Corpuscular Volume 90.3 fL (80-100); Mean Platelet Volume 11.2 fL (7.4-10.4); Platelet Count 205 K/uL (130-400); RDW Coefficient of Variation 14.9 % (11.5-14.5); RDW Standard Deviation 49.6 fL (36.4-46.3); Red Blood Count 4.23 M/uL (4.2-5.4); White Blood Count 9.99 K/uL (4.8-10.8)
[2021-12-31 06:45] LABS: INR 1.3 (0.9-1.1); Partial Thromboplastin Ratio 1.8; Prothrombin Time 13.4 Seconds (9.0-12.0)
[2021-12-31 07:12] LABS: BUN Creatinine Ratio 7.8 (10-20); Calcium 8.3 mg/dl (8.5-10.1); Creatinine Clr Calc Pharmacy 52.7 ml/min; Est GFR (African American) 76.1 ml/min; Est GFR (Non-African American) 65.7 ml/min; Magnesium 1.7 mg/dl (1.7-2.4); Potassium 3.4 mmol/L (3.5-5.1)
[2021-12-31] MEDS ORDERED: AMOXICILLIN/CLAVULANATE 875 MG TAB PO SCH (08:00)
[2021-12-31] MEDS: amLODIPine BESYLATE 5 MG TAB PO SCH (08:23)
[2021-12-31] MEDS: ASPIRIN 81 MG CHEW PO SCH (08:23)
[2021-12-31] MEDS: FLUTICASONE/VILANTEROL 100/25MCG 14 PUFFS/INHALER INH SCH (08:24)
[2021-12-31] MEDS: busPIRone 15 MG TAB PO SCH ×2 (08:24→20:14)
[2021-12-31] MEDS: VALSARTAN/SACUBITRIL 103/97MG TAB PO SCH ×2 (08:24→20:16)
[2021-12-31] MEDS: PANTOprazole 40 MG TAB PO SCH ×2 (08:24→20:16)
[2021-12-31] MEDS: FLUoxetine HCL 20 MG CAP PO SCH (08:24)
[2021-12-31] MEDS: METOPROLOL SUCC 25MG EXT REL TAB PO SCH ×2 (08:24→20:15)
[2021-12-31] MEDS ORDERED: POTASSIUM CHLORIDE CRTAB 20 MEQ TABCR PO STA (08:28)
[2021-12-31] MEDS ORDERED: busPIRone 15 MG TAB PO SCH (09:00)
[2021-12-31] MEDS: MAGNESIUM OXIDE 400 MG TAB PO SCH ×2 (09:27→20:15)
[2021-12-31 09:36] LABS: Partial Thromboplastin Time 48.2 Seconds (21.0-31.0)
--- NOTE | 2021-12-31 15:20 | Hospitalist Progress Note ---
Date of Service December 31, 2021 Assessment & Plan (1) Acute cholecystitis: Plan: 66-year-old female who presents with right upper quadrant abdominal pain radiating to the chest, questionable near syncope and found to have cholecystitis. #. Acute cholecystitis #. Transaminitis #. CBD stones Patient presented 12/27 with right upper quadrant abdominal pain radiating to the chest and questionable near syncope, found to have cholecystitis in the ED. Admitting echo: EF 45 to 50%, grade 2 diastolic dysfunction. Admitting head CT: No acute findings. Admitting abdomen x-ray: Nonobstructive bowel gas pattern. Admitting GB US: Suggestive of acute cholecystitis. 12/27 MRCP: Suggestive of acute cholecystitis. No gallstone or choledocholithiasis seen. 12/27 CTAP: Suggestive of acute cholecystitis. 12/27 CTA chest: No evidence of acute aortic injury. Chronic changes in esophagus. 12/28 EUS: 2 stones were visualized in the lower third of the main bile duct. Multiple stones in the gallbladder. No specimens collected. 12/28 ERCP with EUS: Benign biliary papillary stenosis. Choledocholithiasis noted status post complete removal by biliary sphincterotomy and balloon extraction. One biliary stent was placed into CBD. One pancreatic stent was placed into ventral pancreatic duct. Indomethacin given to decrease risks of post ERCP pancreatitis. 12/29: s/p lap derek Cardiology preop evaluation, obtained chest CT and abdomen pelvis CTA: Negative for any aortic dissection, obtained echo. GI evaluated, repeat ERCP for stent removal in 6 weeks. Tolerating diet, Pain control better. Pain management antibiotics and nausea control. Antibiotics for total of 10 days from 12/27 Resumed Coumadin and bridging heparin drip 12/30. Trend PT/INR LFT improving, pain under control, continue to monitor LFT. Will need OP f/u Sx in 2 weeks. Transitioned to oral ATB. #. Questionable near syncope: Echo and troponin trend reviewed. WNL. Cardiology evaluated. Continue with telemetry. #. Other chronic medical conditions: CAD status post multiple stents and coronary artery bypass grafting, paroxysmal A. fib, chronic systolic CHF, embolic CVA, history of aphasia, GERD, depression, HLD, HTN, chronic obstructive pulmonary disease, status post bioprosthetic aortic valve placement Continue with/resume home meds as and when appropriate. Pt initially stated she takes buspar 30 mg tid, insisted she be started on that regimen. Upon OP chart review, it was 30 mg BD. Pt had her sister bring the medicine and it was 15 mg TID. Changed to 15 mg tid. #. DVT prophylaxis: Resumed heparin bridge and home Coumadin. #. DISPOSITION: Closely monitor in the med-tele. PT/OT rec is home w/ fam support.. Social service to help with discharge planning. Likely DC in next 1 days. Admission and Anticipated Discharge Date Admission Date: December 26, 2021 Subjective Patient seen and examined at bedside for follow-up of transaminitis and cholecystitis. Patient was lying in bed, on 3 L nasal cannula oxygen, feeling better, had lap derek on 12/29, advance diet as tolerated, reports no pain, no nausea & no vomiting. Denies headache/dizziness/chest pain/palpitation/other review of symptoms. Physical Exam Physical Exam: GENERAL: Alert and oriented x3. NAD, on 3L NC O2. HEENT: No pallor, no icterus. Pupils equal, round and reactive to light. Oral mucosa moist. NECK: No JVD, no neck masses. HEART: S1 and S2 heard. Regular rate and rhythm. SM at A and P area, no gallop. RESPIRATORY SYSTEM: Normal AP diameter. No accessory muscle use. No wheezing, no crackles. ABDOMEN: Soft, bowel sounds present, RUQ tender improved, deep palpation not tr ied, lap derek ports with clean dressing, no distention. CENTRAL NERVOUS SYSTEM: No facial droop. Speech is clear. Obeys simple commands. Moves extremities. EXTREMITIES: No edema, no erythema seen. Results & Data Results & Data ([facility]) Vital Signs (Past 12 Hours) Vital Signs Temp Pulse Pulse Resp BP Pulse Ox 12/31/21 14:51 36.6 C 74 20 160/91 H 90 12/31/21 11:35 36.6 C 62 20 136/83 92 12/31/21 07:38 59 L 12/31/21 07:25 36.4 C L 58 L 20 144/82 H 92
[2021-12-31] MEDS ORDERED: WARFARIN SOD 2.5 MG TAB PO SCH (16:00)
[2021-12-31] MEDS: WARFARIN SOD 2.5 MG TAB PO SCH (16:46)
[2021-12-31] MEDS: ATORVASTATIN 20 MG TAB PO SCH (20:14)
[2021-12-31] MEDS: FAMOTIDINE 20 MG TAB PO SCH (20:15)
[2021-12-31] MEDS: MIRTAZAPINE SOLTAB 15 MG PO SCH (20:16)
[2021-12-31] MEDS: HEPARIN SODIUM/DEXTROSE 25,000 UNITS/500 ML BAG IV SCH (22:11)
[2022-01-01] MEDS: HYDROCODONE/ACETAMINOPHEN 7.5/325MG TAB PO PRN ×2 (06:37→18:12)
[2022-01-01] MEDS: MAGNESIUM OXIDE 400 MG TAB PO SCH (08:30)
[2022-01-01] MEDS: METOPROLOL SUCC 25MG EXT REL TAB PO SCH (08:30)
[2022-01-01] MEDS: PANTOprazole 40 MG TAB PO SCH (08:30)
[2022-01-01] MEDS: amLODIPine BESYLATE 5 MG TAB PO SCH (08:30)
[2022-01-01] MEDS: VALSARTAN/SACUBITRIL 103/97MG TAB PO SCH (08:30)
[2022-01-01] MEDS: busPIRone 15 MG TAB PO SCH ×2 (08:30→13:22)
[2022-01-01] MEDS: ASPIRIN 81 MG CHEW PO SCH (08:31)
[2022-01-01] MEDS: FLUoxetine HCL 20 MG CAP PO SCH (08:31)
[2022-01-01] MEDS: AMOXICILLIN/CLAVULANATE 875 MG TAB PO SCH ×2 (08:31→16:53)
[2022-01-01] MEDS: FLUTICASONE/VILANTEROL 100/25MCG 14 PUFFS/INHALER INH SCH (08:32)
[2022-01-01 08:44] LABS: Basophils # (auto) 0.02 K/uL (0-0.2); Basophils % (auto) 0.3 %; Eosinophils # (auto) 0.32 K/uL (0-0.5); Eosinophils % (auto) 4.1 %; Hematocrit (blood only) 36.3 % (37-47); Hemoglobin 11.5 g/dL (12.0-16.0); Immature Granulocytes # (auto) 0.02 K/uL (0.00-0.02); Immature Granulocytes % (auto) 0.3 %; Lymphocytes # (auto) 1.45 K/uL (1.2-3.4); Lymphocytes % (auto) 18.4 %; Mean Corpuscular Hemoglobin 28.5 pg (25-34); Mean Corpuscular Hgb Conc 31.7 g/dL (32-36); Mean Corpuscular Volume 89.9 fL (80-100); Mean Platelet Volume 11.5 fL (7.4-10.4); Monocytes # (auto) 0.65 K/uL (0.11-0.59); Monocytes % (auto) 8.2 %; Neutrophils # (auto) 5.43 K/uL (1.4-6.5); Neutrophils % (auto) 68.7 %; Platelet Count 209 K/uL (130-400); RDW Coefficient of Variation 15.2 % (11.5-14.5); RDW Standard Deviation 49.8 fL (36.4-46.3); Red Blood Count 4.04 M/uL (4.2-5.4); White Blood Count 7.89 K/uL (4.8-10.8)
[2022-01-01 08:47] LABS: INR 1.3 (0.9-1.1); Partial Thromboplastin Ratio 1.9; Prothrombin Time 13.8 Seconds (9.0-12.0)
[2022-01-01 08:52] LABS: Partial Thromboplastin Time 53.2 Seconds (21.0-31.0)
[2022-01-01 09:12] LABS: BUN Creatinine Ratio 9.1 (10-20); Calcium 8.5 mg/dl (8.5-10.1); Creatinine Clr Calc Pharmacy 61.6 ml/min; Est GFR (Non-African American) 79.3 ml/min; Magnesium 1.8 mg/dl (1.7-2.4); Potassium 3.7 mmol/L (3.5-5.1)
--- NOTE | 2022-01-01 13:11 | Discharge Summary ---
Date of Service January 01, 2022 Admission HPI Per Admitting Provider DATE OF ADMISSION: 12/26/2021. CHIEF COMPLAINT: Right-sided abdominal pain, chest pain and questionable near syncope. 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 Currently, somewhat slow to speak, lives alone. She states the only family is her sister. Currently comes with upper right-sided abdominal pain and chest pain, it happened today for the first time. The pain is in the right upper quadrant abdomen and radiated to chest, associated with some nausea and also had diarrhea and feeling cold. Denies any fevers. She took nitroglycerin, but it did not help. Says she leaned on the bathroom for some time because she felt something was not right, but she did not pass out. Currently, pain is improved. Hemodynamically stable. Denies any headache currently, no blurred visions, no earache, no runny nose, no sore throat, no cough. She states that she does not eat much, but no difficulty swallowing. She recently had an EGD with esophageal dilatation, she is supposed to get another EGD in February as per the patient. She says her stools are weird, like she has to flush many times. Denies any blood in stools. Normal bladder movements. No swelling in the legs. ALLERGIES: PLAVIX, BRILINTA, OXYCODONE. PAST MEDICAL HISTORY: As mentioned above. PAST SURGICAL HISTORY: CABG, aortic valve replacement, cardiac catheterization with stent placement, EGD, EGD with biopsies, total abdominal hysterectomy with removal of tubes. MEDICATIONS: The patient is on alendronate 70 mg p.o. weekly, amlodipine 2.5 mg p.o. a.m., aspirin 81 mg p.o. daily, atorvastatin 20 mg p.o. p.m., Breo Ellipta 1 inhalation a.m., buspirone 30 mg p.o. b.i.d., famotidine 20 mg p.o. at bedtime, fluoxetine 40 mg p.o. a.m., hydrocodone/acetaminophen 1 tablet p.o. q.8 hours p.r.n., ipratropium bromide inhalation 2 puffs q.i.d. p.r.n., metoprolol succinate 25 mg p.o. b.i.d., mirtazapine 45 mg p.o. at bedtime, nitroglycerin 0.4 mg sublingual p.r.n., Protonix 40 mg p.o. b.i.d., Entresto 1 tablet p.o. b.i.d., warfarin 2.5 mg as directed. FAMILY HISTORY: Significant for brother has arthritis; sister has breast cancer; mother has colon cancer; father has [place], CABG, pacemaker; sister has leukemia, brain aneurysm, osteoarthritis. SOCIAL HISTORY: Former smoker, quit in 2020, averagely smoked 1 pack a day for 41 years. Alcohol on holidays. No drug use. REVIEW OF SYSTEMS: As per HPI. Rest of the review of systems is negative. Admission Exam Per Admitting Provider GENERAL: The patient is of moderate build, not in acute distress. VITAL SIGNS: Temperature 36.8, pulse 72, respiratory rate 21, blood pressure 113/71, oxygen 96% on room air. HEENT: Pupils equal, round and reactive to light. Oral mucosa moist. NECK: No JVD, no neck masses. CARDIOVASCULAR: S1 and S2 heard. Regular rate and rhythm. No murmur, no gallop. RESPIRATORY SYSTEM: Normal AP diameter. ABDOMEN: Mild right upper quadrant tenderness. No guarding, no rigidity, no distention. CENTRAL NERVOUS SYSTEM: Alert and oriented. Speech is somewhat pressured, speaking slowly. No facial droop. Nonfocal. EXTREMITIES: No edema, no erythema. Principal Diagnosis Acute cholecystitis Transaminitis CBD stones Discharge Exam GENERAL: Alert and oriented x3. NAD, on 3L NC O2. HEENT: No pallor, no icterus. Pupils equal, round and reactive to light. Oral mucosa moist. NECK: No JVD, no neck masses. HEART: S1 and S2 heard. Regular rate and rhythm. SM at A and P area, no gallop. RESPIRATORY SYSTEM: Normal AP diameter. No accessory muscle use. No wheezing, no crackles. ABDOMEN: Soft, bowel sounds present, RUQ tender improved, deep palpation not tried, lap derek ports with clean dressing, no distention. CENTRAL NERVOUS SYSTEM: No facial droop. Speech is clear. Obeys simple commands. Moves extremities. EXTREMITIES: No edema, no erythema seen. Discharge Data Allergies Allergy/AdvReac Type Severity Reaction Status Date / Time clopidogrel [From Plavix] Allergy Severe facial Verified 12/26/21 19:01 swelling, itching ticagrelor [From Brilinta] Allergy Severe facial Verified 12/26/21 19:01 swelling, itching oxycodone Allergy Intermediate itching Verified 12/26/21 19:01 Consultations 12/26/21 21:39 ED Decision to Admit Stat 12/26/21 22:43 Consult General Surgery Stat 12/27/21 08:00 Consult Cardiology Routine Consult Gastroenterology Routine 12/27/21 08:55 Consult Cardiac Catheterization Routine Procedures Performed Operation Date: 12/27/21 09:30 <No data on this case meets the specified criteria> Operation Date: 12/28/21 10:30 Actual Procedures p Esophagogastroduodenoscopy - Brock Bates DO p Endoscopic Ultrasonography Upper - Brock Bates DO s Endoscopic Retrograde Cholangiopancreato - Brock Bates DO Operation Date: 12/29/21 08:00 Actual Procedures p Laparoscopic Cholecystectomy (Not Applicable) - Felipe Lew DO Ordered Studies 12/26/21 18:19 CT head/brain wo con Stat 12/26/21 18:27 US gallbladder Stat 12/27/21 01:36 MR MRCP Urgent 12/27/21 08:58 CL Cath Imgs for PACS use only Stat 12/27/21 09:05 CT angio abdomen pelvis w con Stat CT angio chest dissec wo/w con Stat 12/28/21 10:30 FL ERCP biliary ductal Routine 12/28/21 11:30 US upper EUS PACS images Routine Hospital Course (1) Acute cholecystitis: 66-year-old female who presents with right upper quadrant abdominal pain radiating to the chest, questionable near syncope and found to have cholecystiti s. #. Acute cholecystitis #. Transaminitis #. CBD stones Patient presented 12/27 with right upper quadrant abdominal pain radiating to the chest and questionable near syncope, found to have cholecystitis in the ED. Admitting echo: EF 45 to 50%, grade 2 diastolic dysfunction[address] Admitting head CT: No acute findings. Admitting abdomen x-ray: Nonobstructive bowel gas pattern. Admitting GB US: Suggestive of acute cholecystitis. 12/27 MRCP: Suggestive of acute cholecystitis. No gallstone or choledocholithiasis seen. 12/27 CTAP: Suggestive of acute cholecystitis. 12/27 CTA chest: No evidence of acute aortic injury. Chronic changes in esophagus. 12/28 EUS: 2 stones were visualized in the lower third of the main bile duct. Multiple stones in the gallbladder. No specimens collected. 12/28 ERCP with EUS: Benign biliary papillary stenosis. Choledocholithiasis noted status post complete removal by biliary sphincterotomy and balloon extraction. One biliary stent was placed into CBD. One pancreatic stent was placed into ventral pancreatic duct. Indomethacin given to decrease risks of post ERCP pancreatitis. 12/29: s/p lap derek Cardiology preop evaluation, obtained chest CT and abdomen pelvis CTA: Negative for any aortic dissection, obtained echo. GI evaluated, repeat ERCP for stent removal in 6 weeks. Tolerating diet, Pain control better. Pain management antibiotics and nausea control. Antibiotics for total of 10 days from 12/27 - pt being discharged on Augmentin Resumed Coumadin and bridging heparin drip 12/30. Trend PT/INR --> pt to follow up with coumadin clinic tomorrow and until then to use lovenox BID as instructed. Then follow up with their recommendation. LFT improving, pain under control, continue to monitor LFT. Will need OP f/u Sx in 2 weeks. #. Questionable near syncope: Echo and troponin trend reviewed. WNL. Cardiol ogy evaluated. Continue with telemetry. #. Other chronic medical conditions: CAD status post multiple stents and coronary artery bypass grafting, paroxysmal A. fib, chronic systolic CHF, embolic CVA, history of aphasia, GERD, depression, HLD, HTN, chronic obstructive pulmonary disease, status post bioprosthetic aortic valve placement Continue with/resume home meds as and when appropriate. Pt initially stated she takes buspar 30 mg tid, insisted she be started on that regimen. Upon OP chart review, it was 30 mg BD. Pt had her sister bring the medicine and it was 15 mg TID. Changed to 15 mg tid. #. DVT prophylaxis: Resumed heparin bridge and home Coumadin. Patient is being discharged to home with family support with following instruction at the point of discharge: Follow-up with your primary care physician within a week time. Follow-up with your GI doctor for your ERCP stent removal in 1 month's time. Follow-up with your surgery doctor in 2 weeks time. Take antibiotics as prescribed to complete the course for 5 more days. Take probiotics for the duration of antibiotic. Get your blood work CBC and CMP done in a week time and have the results forwarded to your primary care physician. For your blood thinner, your home dose of Coumadin has been restarted. You will be discharged on Lovenox for 2 days, use it twice a day. You will need to follow-up with your Coumadin clinic on Sunday [01/02/2022] to monitor your PT/INR as discussed at the bedside, and follow-up with recommendations for your blood thinner from them. Take your medications as prescribed. Total Time Total Time Spent Total Time Spent (In Minutes): 40 Discharge Plan Discharge Items Patient Disposition: Home - Self-Care Reason For Visit: ABDOMINAL PAIN, NEAR SYNCOPE? Discharge Diagnosis: Acute cholecystitis Transaminitis CBD stones Activity: Per Instructions section Lifting: No more than 10 pounds Bathing Comment: may shower; no soaking in tubs/pools Exercise/Sports: Wait until after follow-up appointment Driving/Machine Use: no driving while taking any narcotics for pain Non-emergency contact: Surgeon Call non-emergency contact if: you have any medication questions, your symptoms worsen, your pain is not controlled, your pain is worsening, your pain is concerning for you, you have a fever, your temperature is above 101.5, your wound has increased redness, your wound has increased drainage and your wound pain has increased Follow-up/Referrals: Felipe Lew DO [Physician] - (Please call to schedule follow up in clinic within 2 weeks) Abdon Pa DO [Primary Care Provider] - Diet: Heart Healthy Addtl Attending Provider Instructions: Follow-up with your primary care physician within a week time. Follow-up with your GI doctor for your ERCP stent removal in 1 month's time. Follow-up with your surgery doctor in 2 weeks time. Take antibiotics as prescribed to complete the course for 5 more days. Take probiotics for the duration of antibiotic. Get your blood work CBC and CMP done in a week time and have the results forwarded to your primary care physician. For your blood thinner, your home dose of Coumadin has been restarted. You will be discharged on Lovenox for 2 days, use it twice a day. You will need to follow-up with your Coumadin clinic on Sunday [01/02/2022] to monitor your PT/INR, and follow-up with recommendations for your blood thinner from them. Take your medications as prescribed. Addtl Front Counter Clerk Provider Instructions: You may remove your outer surgical dressings on 12/31/21. You will have small white bandages called steri-strips on underneath. You may shower with these on. They will tend to fall off on their own within 7-10 days. Pending Studies at Discharge: Yes Studies:: surgical pathology Stand-Alone Forms: [facility], Smoking Cessation Medications and DC Order Prescriptions: New enoxaparin [Lovenox] 80 mg/0.8 mL syringe 65 mg subcut Q12H 2 Days Qty: 2.6 RF: 0 amoxicillin-pot clavulanate 875-125 mg tablet 1 tab PO BID 5 Days Qty: 10 RF: 0 Probiotic 3 billion cell capsule 3,000 mmu cells PO DAILY 7 Days Qty: 7 RF: 0 hydromorphone [Dilaudid] 2 mg tablet 1 mg PO Q8H 3 Days Qty: 5 RF: 0 Continued Entresto 97-103 mg tablet 1 tab PO BID RF: 0 atorvastatin 10 mg tablet 20 mg PO QPM RF: 0 warfarin 2.5 mg tablet See Rx Instructions .ROUTE .COMPLEX RF: 0 fluoxetine 40 mg capsule 40 mg PO QAM RF: 0 nitroglycerin [Nitrostat] 0.4 mg tablet, sublingual 0.4 mg sublingual Q5M PRN (Reason: Chest Pain) RF: 0 ipratropium bromide 17 mcg/actuation HFA aerosol inhaler 2 puff inhalation QID RF: 0 amlodipine 2.5 mg Tablet 2.5 mg PO QAM RF: 0 famotidine 20 mg Tablet 20 mg PO HS RF: 0 pantoprazole 40 mg Tablet,Delayed Release (Dr/Ec) 40 mg PO BID RF: 0 mirtazapine 45 mg Tablet 45 mg PO HS RF: 0 Breo Ellipta 100-25 mcg/dose Blister With Device 1 inh INHALATION QAM RF: 0 alendronate 70 mg tablet 70 mg PO WK RF: 0 hydrocodone-acetaminophen 7.5-325 mg tablet 1 tab PO Q8H PRN (Reason: Pain) RF: 0 aspirin 81 mg Tablet,Chewable 81 mg PO DAILY RF: 0 metoprolol succinate 25 mg tablet extended release 24 hr 25 mg PO BID RF: 0 Changed buspirone 30 mg Tablet 15 mg PO TID Qty: 0 RF: 0 Discharge Orders: Discharge Order (Routine); Ordered 01/01/22 Ordered By: Brea Gutiérrez Admission Data Admit Date/Time: 12/26/21 23:22 Attending Provider: Brea Gutiérrez Admit Provider: Khoi Rivera Primary Care Provider: Abdon Pa Other Providers: Yunior Avila ; Khoi Rivera ; Felipe Lew ; Farhad Platt ; Gene Dover ; Federico Awan ; John Hurley ; Elton Lee ; Carrie Worthy ; Rina Curran ; Radha Villela ; Prieto Reinoso ; Ryan Ariza
[2022-01-01] MEDS: WARFARIN SOD 2.5 MG TAB PO SCH (16:53)
[2022-01-01] MEDS ORDERED: ENOXAPARIN INJ 60 MG/0.6 ML SYR SQ SCH (19:00)
== END 2022-01-01 18:49 | disposition home or self-care (01) | DRG 418 ==
LOC: ED 17:56 → SUATTDRO 23:22 → 2N 23:22

== ENCOUNTER 2022-12-05 14:11 | Inpatient (IN) ==
--- NOTE | 2022-12-05 14:34 | Emergency Department Note ---
Impression & Plan Left arm numbness, Left leg weakness, Stroke-like symptoms, History of CVA (cerebrovascular accident), Expressive aphasia ED Provider Note NAME: VIOLETA BARONE AGE: 66 SEX: F : 1955 ARRIVES VIA: Ambulance INFORMANT: [Patient][ems] ED PROVIDER(S): [Augusto Frey MD] Patient first seen by me at 1420. CHIEF COMPLAINT: Arm numbness HISTORY OF PRESENT ILLNESS: The patient is a 66-year-old female who states that around noon today, 2 hours and 20 minutes ago, she began noticing some numbness and tingling in her left hand. This spread to her whole arm and now is back to the hand. She did not notice any numbness or issues with her left leg or left face. She has had a previous CVA with some ongoing speech deficits, basically expressive aphasia. She does not have any residual arm or leg weakness from her stroke. The patient is on Coumadin. The patient states that today, she did not feel well. She was running some errands and when she got home, she had some watery diarrhea. No blood in the stool. It was after this that she began noticing the hand numbness. She p resents by EMS. PMHx/PSHx: See Below SOCIAL HISTORY: See Below. PHYSICAL EXAM: GENERAL: Patient is in no acute distress. HEENT: No acute trauma, normocephalic atraumatic, mucous membranes moist, no nasal congestion. NECK: No stridor, no adenopathy, no meningismus, trachea is midline. LUNGS: Wheezing bilaterally, no respiratory distress, breath sounds equal. HEART: Without murmurs gallops or rubs, regular rate and rhythm. ABDOMEN: Soft, nontender, bowel sounds positive, no peritonitis. EXTREMITIES: No cyanosis or edema, full range of motion of all the joints without pain or difficulty, no signs for acute trauma. NEUROLOGIC: Oriented x 3. The patient does have a subtle expressive aphasia which by her report is normal. There is no facial droop. No upper extremity cerebellar dysfunction. No arm drift. She does have some difficulty with raising her left leg off the bed. Her left leg cerebellar function is poor when compared to the right. SKIN: No rash, no jaundice, no diaphoresis. DIFFERENTIAL DIAGNOSIS: Stroke, TIA, infection, UTI, electrolyte imbalance, dehydration, intracranial bleeding, among others. EMERGENCY DEPARTMENT COURSE/PROCEDURES: Prior/Outside records reviewed: EMS notes. ECG per my interpretation: Indication was a possible stroke. The ECG shows a normal sinus rhythm with a rate of 64. There is an old septal infarct. There is some nonspecific ST change diffusely. There is no ST elevation, no PVCs. The QTc is 381. Continuous Cardiac Monitoring per my interpretation: An order was placed for continuous cardiac monitoring. The monitor shows a rate of 63 with normal sinus rhythm. Critical Care Note: I have personally spent 41 minutes of critical care time in the direct management of this patient. This includes bedside care, interpretation of diagnostic studies, and testing, discussion with consultants, patient, and family members, and other required patient management activities. This 41 minutes is in excess of all separately billable procedures. MEDICAL DECISION MAKING: There is no leukocytosis or concerning anemia. There is a normal platelet count. INR on POC was 2.9, INR on basic lab testing was 2.4. The elevated INR is consistent with her Coumadin use. There was no renal failure or significant electrolyte abnormality. No concerning liver enzyme elevation. ECG showed a normal sinus rhythm, no dysrhythmia or ischemia. Cardiac enzyme testing x1 was not consistent with acute cardiac injury. Urinalysis did not show infection. COVID test is pending. Brain CT did not show any acute bleed or mass effect. An old stroke was seen consistent with her past history. CT angio of the head and neck were performed, no stenosis or clot seen. On exam, the patient did have an expressive aphasia which was thought to be old. She did have some weakness and clumsiness of her left leg. Given the patient's presentation and history, a stroke alert was called. I did speak with Dr. Powell of [facility]. An assessment was done by the [facility] telestroke physician. TNK was not to be given because of the elevated INR value. Patient is currently resting comfortably. Her exam remains unchanged. Further work-up in the hospital for potential small stroke is warranted. I did speak with the patient and case management, the on-call hospitalist was consulted. DISPOSITION: Patient's presentation and findings warrant a hospital stay. Past Med/Surg History Medical History Anxiety Aphasia, mixed Atrial fibrillation paroxysmal CAD (coronary artery disease) multivessel CAD, s/p multiple stents, CABG x 1, follows with [facility] cardiology Carotid artery stenosis < 50% stenosis CHF (congestive heart failure) EF 45-50% grade 2 diastolic dysfunction COPD (chronic obstructive pulmonary disease) 2L O2 at night and as needed during the day CVA (cerebral vascular accident) 2004; embolic per cardio records; residual dysphagia, some expressive/receptive aphasia, improved with speech therapy Depression Dysphagia GERD (gastroesophageal reflux disease) History of anesthesia reaction pt has some expressive aphasia r/t previous stroke, had difficult time explaining anesthesia problem. says she had difficulty breathing coming out of anesthesia in past. unable to elaborate beyond that. says occurence x 1 while living in [place]. History of blood transfusion 2004 History of myocardial infarction 1991 HLD (hyperlipidemia) HTN (hypertension) Osteoporosis Poor historian poor memory Throat fullness reason for EGD Surgical History H/O heart artery stent 5 stents (thinks last placed in 2019) History of cardiac catheterization multiple (believes most recent was in 2019 while living in [place]) History of heart valve replacement aortic valve replacement 09/23/2019 History of open heart surgery [place] - Sep 23, 2019 History of tonsillectomy History of wisdom tooth extraction Hx laparoscopic cholecystectomy (12/29/21) Laparoscopic Cholecystectomy (Not Applicable) - [facility]ipe [facility], 12/29/2021. Grade 1 view, MAC 3, ETT 7.0 atraumatic x 1. Family History Other No pertinent family history Social History Smoking Status: Current every day smoker Tobacco Type: Cigarettes packs per day: 0.25; Second Hand Exposure: No; Hx Alcohol Use: No Hx Substance Use: No Preferred Language: Mongolian Communication Ability: Effective Visual Impairment: Limited Hearing Ability: Normal Mangle Roll Operator Required: No Beliefs That Will Affect Care: None marital status: / Current Living Situation: Alone current occupational status: disabled current occupation: on disability since 2004 Feels Safe at Home: Yes Assistive Devices: Denture - Upper, Denture - Lower and Glasses Allergies Allergies Allergy/AdvReac Type Severity Reaction Status Date / Time clopidogrel [From Plavix] Allergy Severe facial Verified 03/03/22 10:47 swelling, itching ticagrelor [From Brilinta] Allergy Severe facial Verified 03/03/22 10:47 swelling, itching oxycodone Allergy Intermediate itching Verified 03/03/22 10:47 Home Meds Home Medications Medication Instructions Recorded Confirmed atorvastatin 10 mg tablet 20 mg PO QPM 08/26/20 03/03/22 fluoxetine 40 mg capsule 40 mg PO QAM 08/26/20 03/03/22 ipratropium bromide 17 2 puff inhalation QID PRN 08/26/20 03/03/22 mcg/actuation HFA aerosol inhaler Shortness Of Breath Or Wheezing nitroglycerin 0.4 mg sublingual 0.4 mg sublingual Q5M PRN Chest 08/26/20 03/03/22 tablet (Nitrostat) Pain sacubitril 97 mg-valsartan 103 mg 1 tab PO BID 08/26/20 03/03/22 tablet (Entresto) warfarin 2.5 mg tablet See Rx Instructions .Route .COMPLEX 08/26/20 03/03/22 amlodipine 2.5 mg tablet 2.5 mg PO QAM 09/30/21 03/03/22 famotidine 20 mg tablet 20 mg PO HS 09/30/21 03/03/22 fluticasone furoate 100 1 inh inhalation QAM 09/30/21 03/03/22 mcg-vilanterol 25 mcg/dose inhalation powder (Breo Ellipta) mirtazapine 45 mg tablet 45 mg PO HS 09/30/21 03/03/22 pantoprazole 40 mg tablet,delayed 40 mg PO BID 09/30/21 03/03/22 release alendronate 70 mg tablet 70 mg PO WK 12/26/21 03/03/22 aspirin 81 mg chewable tablet 81 mg PO QAM 12/26/21 03/03/22 hydrocodone 7.5 mg-acetaminophen 1 tab PO Q8H PRN Pain 12/26/21 03/03/22 325 mg tablet metoprolol succinate 25 mg 25 mg PO BID 12/26/21 03/03/22 tablet,extended release 24 hr buspirone 30 mg tablet 15 mg PO BID 03/03/22 03/03/22 enoxaparin 60 mg/0.6 mL 60 mg subcut Q12H 03/03/22 03/03/22 subcutaneous syringe (Lovenox) Results & Data (ED) Vital Signs Vital Signs - 24 hr 12/05/22 14:33 12/05/22 14:44 12/05/22 15:00 Temperature 36.6 C Temperature Source Oral Pulse Rate 63 67 Pulse Rate [Apical] Pulse Rate from SpO2 Sensor 67 Respiratory Rate 20 17 Respiratory Depth Normal Blood Pressure 139/83 Blood Pressure [Left Arm] Blood Pressure Mean 101 Blood Pressure Mean [Left Arm] Blood Pressure Position Lying Pulse Oximetry 96 95 95 Oxygen Delivery Method Room Air Nasal Cannula Room Air Sepsis Recent Fever Within 48 Hours No Sepsis New/Unexplained Change in Mental Status No Sepsis Action Taken by Nursing No Action Required 12/05/22 15:05 12/05/22 15:28 12/05/22 15:30 Temperature Temperature Source Pulse Rate 70 69 Pulse Rate [Apical] 71 Pulse Rate from SpO2 Sensor 71 Respiratory Rate 22 18 20 Respiratory Depth Blood Pressure 163/91 H 149/88 H Blood Pressure [Left Arm] 163/91 H Blood Pressure Mean 115 108 Blood Pressure Mean [Left Arm] 115 Blood Pressure Position Pulse Oximetry 96 93 92 Oxygen Delivery Method Room Air Room Air Sepsis Recent Fever Within 48 Hours Sepsis New/Unexplained Change in Mental Status Sepsis Action Taken by Shelter Medications Current Medication List: was personally reviewed by me Laboratory Data Attestation: I reviewed the patient's lab results. 12/05/22 14:30 12/05/22 14:30 Lab Results 12/05/22 12/05/22 12/05/22 Range/Units 14:30 14:30 14:30 WBC 8.31 (4.8-10.8) K/ul RBC 4.09 L (4.20-5.40) M/uL Hgb 12.4 (12.0-16.0) g/dl POC Hgb (12.0-16.0) g/dl Hct 38.1 (37.0-47.0) % POC Hct (37-47) % MCV 93.2 (80.0-100.0) fL MCH 30.3 (25.0-34.0) pg MCHC 32.5 (32.0-36.0) g/dL RDW Std Deviation 58.7 H (36.4-46.3) fL RDW Coeff of Fredy 17.2 H (11.5-14.5) % Plt Count 308 (130-400) K/uL MPV 10.9 (9.4-12.4) fL Immature Gran % (Auto) 0.2 % Neut % (Auto) 78.8 % Lymph % (Auto) 11.7 % Dodge % (Auto) 7.0 % Eos % (Auto) 1.8 % Baso % (Auto) 0.5 % Neut # (Auto) 6.55 H (1.40-6.50) K/uL Lymph # (Auto) 0.97 L (1.2-3.4) K/uL Dodge # (Auto) 0.58 (0.11-0.59) K/uL Eos # (Auto) 0.15 (0-0.50) K/uL Baso # (Auto) 0.04 (0-0.2) K/uL Immature Gran # (Auto) 0.02 (0.01-0.20) K/uL PT 25.2 H (9.0-12.0) Seconds POC INR (0.9-1.1) INR 2.4 H (0.9-1.1) APTT 33.1 H (21.0-31.0) Seconds PTT Ratio 1.2 POC Sodium (135-144) mmol/L Sodium 140 (136-145) mmol/L POC Potassium (3.3-5.0) mmol/L Potassium 3.7 (3.5-5.1) mmol/L POC Chloride (101-112) mmol/L Chloride 103 (98-107) mmol/L Carbon Dioxide 30 (21-32) mmol/L POC Total CO2 (24-31) mmol/L Anion Gap 7 (3-11) POC Anion Gap (16-25) mmol/L POC BUN (7-18) mg/dl BUN 8 (6-23) mg/dl Creatinine 0.79 (0.6-1.2) mg/dl POC Creatinine (0.6-1.3) mg/dl Est Cr Clr Drug Dosing 63.9 ml/min Est GFR ( Amer) 89.1 ml/min Est GFR (Non-Af Amer) 76.9 ml/min BUN/Creatinine Ratio 10.1 (10-20) Glucose 112 H (70-99(Fasting)) mg/dl POC Glucose (other) (70-99) mg/dl Calcium 8.8 (8.6-10.3) mg/dl POC Ioniz Calcium Jolie (1.12-1.32) mmol/l Magnesium 1.8 (1.7-2.4) mg/dl Total Bilirubin 0.6 (0.2-1.0) mg/dl AST 20 (13-39) U/L ALT 13 (7-52) U/L Alkaline Phosphatase 127 H (34-104) U/L Troponin I High Sens 8.3 (0-14) pg/ml Total Protein 6.5 (6.0-8.3) gm/dl Albumin 3.7 (3.4-5.0) gm/dl Globulin 2.8 (2.5-4.0) gm/dl Albumin/Globulin Ratio 1.3 (0.9-2) Urine Color Urine Appearance (Clear) Urine pH (4.5-7.5) Ur Specific Colbert (1.000-1.030) Urine Protein (Negative) Urine Glucose (UA) (Negative) Urine Ketones (Negative) Urine Blood (Negative) Urine Nitrite (Negative) Urine Bilirubin (Negative) Urine Urobilinogen (Negative) Ur Leukocyte Esterase (Negative) Urine WBC (Auto) (0-5) /hpf Urine RBC (Auto) (0-4) /hpf U Hyaline Cast (Auto) (0-5) /lpf U Epithel Cells (Auto) (0-5) /lpf Urine Bacteria (Auto) (Negative) 12/05/22 12/05/22 12/05/22 Range/Units 14:30 14:43 14:56 WBC (4.8-10.8) K/ul RBC (4.20-5.40) M/uL Hgb (12.0-16.0) g/dl POC Hgb 13.3 (12.0-16.0) g/dl Hct (37.0-47.0) % POC Hct 39 (37-47) % MCV (80.0-100.0) fL MCH (25.0-34.0) pg MCHC (32.0-36.0) g/dL RDW Std Deviation (36.4-46.3) fL RDW Coeff of Fredy (11.5-14.5) % Plt Count (130-400) K/uL MPV (9.4-12.4) fL Immature Gran % (Auto) % Neut % (Auto) % Lymph % (Auto) % Dodge % (Auto) % Eos % (Auto) % Baso % (Auto) % Neut # (Auto) (1.40-6.50) K/uL Lymph # (Auto) (1.2-3.4) K/uL Dodge # (Auto) (0.11-0.59) K/uL Eos # (Auto) (0-0.50) K/uL Baso # (Auto) (0-0.2) K/uL Immature Gran # (Auto) (0.01-0.20) K/uL PT (9.0-12.0) Seconds POC INR 2.9 H (0.9-1.1) INR (0.9-1.1) APTT (21.0-31.0) Seconds PTT Ratio POC Sodium 140 (135-144) mmol/L Sodium (136-145) mmol/L POC Potassium 3.6 (3.3-5.0) mmol/L Potassium (3.5-5.1) mmol/L POC Chloride 100 L (101-112) mmol/L Chloride (98-107) mmol/L Carbon Dioxide (21-32) mmol/L POC Total CO2 27 (24-31) mmol/L Anion Gap (3-11) POC Anion Gap 18.0 (16-25) mmol/L POC BUN 7 (7-18) mg/dl BUN (6-23) mg/dl Creatinine (0.6-1.2) mg/dl POC Creatinine 0.8 (0.6-1.3) mg/dl Est Cr Clr Drug Dosing ml/min Est GFR ( Amer) ml/min Est GFR (Non-Af Amer) ml/min BUN/Creatinine Ratio (10-20) Glucose (70-99(Fasting)) mg/dl POC Glucose (other) 115 H (70-99) mg/dl Calcium (8.6-10.3) mg/dl POC Ioniz Calcium Jolie 0.91 L (1.12-1.32) mmol/l Magnesium (1.7-2.4) mg/dl Total Bilirubin (0.2-1.0) mg/dl AST (13-39) U/L ALT (7-52) U/L Alkaline Phosphatase (34-104) U/L Troponin I High Sens (0-14) pg/ml Total Protein (6.0-8.3) gm/dl Albumin (3.4-5.0) gm/dl Globulin (2.5-4.0) gm/dl Albumin/Globulin Ratio (0.9-2) Urine Color Yellow Urine Appearance Clear (Clear) Urine pH 6.5 (4.5-7.5) Ur Specific Colbert 1.014 (1.000-1.030) Urine Protein Negative (Negative) Urine Glucose (UA) Negative (Negative) Urine Ketones Negative (Negative) Urine Blood Trace H (Negative) Urine Nitrite Negative (Negative) Urine Bilirubin Negative (Negative) Urine Urobilinogen Negative (Negative) Ur Leukocyte Esterase Negative (Negative) Urine WBC (Auto) 0 (0-5) /hpf Urine RBC (Auto) 0-4 (0-4) /hpf U Hyaline Cast (Auto) 0 (0-5) /lpf U Epithel Cells (Auto) 10-20 H (0-5) /lpf Urine Bacteria (Auto) Negative (Negative) Administered Medications Discontinued Medications Ioversol (Optiray 320 500ml) 112 ml IV ONCE ONE Stop: 12/05/22 14:44 Last Admin: 12/05/22 14:36 Dose: 112 ml Documented By: [facility] Imaging Data Radiologist's Impression: Head CT 12/05/22 14:28 CT angio head w con, CT head/brain wo con, CT angio neck with con CLINICAL HISTORY: neuro deficit, acute stroke suspected TECHNIQUE: Contiguous axial CT images of the head were acquired from the base of the skull to the vertex without intravenous contrast administration. CT angiography of the head and neck was performed following intravenous administration of iodinated contrast. Coronal and sagittal MIPS were obtained from the axial data set and were submitted for review. Automated dose lowering techniques and/or adjustment according to patient size were utilized for this examination. All measurements were calculated based on NASCET criteria. CT DOSE: 992.96 mGy.cm Comparison: None available at the time of this dictation. FINDINGS: CT head: Areas of decreased attenuation are present in the periventricular and subcortical white matter bilaterally consistent with small vessel ischemic disease. Generalized cerebral atrophy with commensurate enlargement of the ventricles, sulci, and cisterns is also present. There is no acute intracranial hemorrhage or evidence of acute territorial infarction. No shift of the midline structures, mass effect, or extra-axial abnormalities are shown. Atherosclerotic calcifications are present in the intracranial segments of the internal carotid arteries. Chronic appearing left focal encephalomalacia is seen Extensive emphysema is seen. The esophagus is patulous with some fluid filling noted. CTA Neck: A 3 vessel aortic arch is shown. There is no significant atherosclerotic plaque in the aortic arch or the origins of the innominate, left common carotid, and left subclavian arteries. The common carotid, external carotid, cervical segments of the internal carotid arteries, and the cervical segments of the vertebral arteries are patent without hemodynamically significant stenosis. The left vertebral artery is dominant. CTA Head: The anterior and posterior cerebral circulations are patent. No hemodynamically significant stenosis, aneurysm, dissection, or arteriovenous malformation is shown. IMPRESSION: 1. No acute intracranial hemorrhage, evidence of acute territorial infarction, or other acute intracranial disease process. Old left parietal infarct is noted. 2. No occlusion, hemodynamically significant stenosis, or dissection in the major cervical arteries. 3. No occlusion, hemodynamically significant stenosis, aneurysm, dissection, or arteriovenous malformation in the major intracranial arteries. 4. Patulous esophagus with a small amount of fluid. Assessment of stenosis of the internal carotid arteries is based on NASCET criteria. ACT 112: Negative or not required by law. Electronically signed by: Yemi Kirby M.D. 12/05/2022 2:52 PM Head CTA 12/05/22 14:28 CT angio head w con, CT head/brain wo con, CT angio neck with con CLINICAL HISTORY: neuro deficit, acute stroke suspected TECHNIQUE: Contiguous axial CT images of the head were acquired from the base of the skull to the vertex without intravenous contrast administration. CT angiography of the head and neck was performed following intravenous administration of iodinated contrast. Coronal and sagittal MIPS were obtained from the axial data set and were submitted for review. Automated dose lowering techniques and/or adjustment according to patient size were utilized for this examination. All measurements were calculated based on NASCET criteria. CT DOSE: 992.96 mGy.cm Comparison: None available at the time of this dictation. FINDINGS: CT head: Areas of decreased attenuation are present in the periventricular and subcortical white matter bilaterally consistent with small vessel ischemic disease. Generalized cerebral atrophy with commensurate enlargement of the ventricles, sulci, and cisterns is also present. There is no acute intracranial hemorrhage or evidence of acute territorial infarction. No shift of the midline structures, mass effect, or extra-axial abnormalities are shown. Atherosclerotic calcifications are present in the intracranial segments of the internal carotid arteries. Chronic appearing left focal encephalomalacia is seen Extensive emphysema is seen. The esophagus is patulous with some fluid filling noted. CTA Neck: A 3 vessel aortic arch is shown. There is no significant atherosclerotic plaque in the aortic arch or the origins of the innominate, left common carotid, and left subclavian arteries. The common carotid, external carotid, cervical segments of the internal carotid arteries, and the cervical segments of the vertebral arteries are patent without hemodynamically significant stenosis. The left vertebral artery is dominant. CTA Head: The anterior and posterior cerebral circulations are patent. No hemodynamically significant stenosis, aneurysm, dissection, or arteriovenous malformation is shown. IMPRESSION: 1. No acute intracranial hemorrhage, evidence of acute territorial infarction, or other acute intracranial disease process. Old left parietal infarct is noted. 2. No occlusion, hemodynamically significant stenosis, or dissection in the major cervical arteries. 3. No occlusion, hemodynamically significant stenosis, aneurysm, dissection, or arteriovenous malformation in the major intracranial arteries. 4. Patulous esophagus with a small amount of fluid. Assessment of stenosis of the internal carotid arteries is based on NASCET criteria. ACT 112: Negative or not required by law. Electronically signed by: Yemi Kirby M.D. 12/05/2022 2:52 PM Neck CTA 12/05/22 14:28 CT angio head w con, CT head/brain wo con, CT angio neck with con CLINICAL HISTORY: neuro deficit, acute stroke suspected TECHNIQUE: Contiguous axial CT images of the head were acquired from the base of the skull to the vertex without intravenous contrast administration. CT angiography of the head and neck was performed following intravenous administration of iodinated contrast. Coronal and sagittal MIPS were obtained f rom the axial data set and were submitted for review. Automated dose lowering techniques and/or adjustment according to patient size were utilized for this examination. All measurements were calculated based on NASCET criteria. CT DOSE: 992.96 mGy.cm Comparison: None available at the time of this dictation. FINDINGS: CT head: Areas of decreased attenuation are present in the periventricular and subcortical white matter bilaterally consistent with small vessel ischemic disease. Generalized cerebral atrophy with commensurate enlargement of the ventricles, sulci, and cisterns is also present. There is no acute intracranial hemorrhage or evidence of acute territorial infarction. No shift of the midline structures, mass effect, or extra-axial abnormalities are shown. Atherosclerotic calcifications are present in the intracranial segments of the internal carotid arteries. Chronic appearing left focal encephalomalacia is seen Extensive emphysema is seen. The esophagus is patulous with some fluid filling noted. CTA Neck: A 3 vessel aortic arch is shown. There is no significant atherosclerotic plaque in the aortic arch or the origins of the innominate, left common carotid, and left subclavian arteries. The common carotid, external carotid, cervical segments of the internal carotid arteries, and the cervical segments of the vertebral arteries are patent without hemodynamically significant stenosis. The left vertebral artery is dominant. CTA Head: The anterior and posterior cerebral circulations are patent. No hemodynamically significant stenosis, aneurysm, dissection, or arteriovenous malformation is shown. IMPRESSION: 1. No acute intracranial hemorrhage, evidence of acute territorial infarction, or other acute intracranial disease process. Old left parietal infarct is noted. 2. No occlusion, hemodynamically significant stenosis, or dissection in the major cervical arteries. 3. No occlusion, hemodynamically significant stenosis, aneurysm, dissection, or arteriovenous malformation in the major intracranial arteries. 4. Patulous esophagus with a small amount of fluid. Assessment of stenosis of the internal carotid arteries is based on NASCET criteria. ACT 112: Negative or not required by law. Electronically signed by: Yemi Kirby M.D. 12/05/2022 2:52 PM Discharge Plan Visit Data Chief Complaint: Neuro Symptoms/Deficit Stated Complaint: numbness R arm ED Provider: Augusto Frey Discharge Problem: Left arm numbness, Left leg weakness, Stroke-like symptoms, History of CVA (cerebrovascular accident), Expressive aphasia Patient Disposition: Admitted As Inpatient Condition: Fair Forms Stand Alone Forms: My [facility] Flow[employer] Prescriptions Prescriptions: No Action Entresto 97-103 mg tablet 1 tab PO BID atorvastatin 10 mg tablet 20 mg PO QPM warfarin 2.5 mg tablet See Rx Instructions .ROUTE .COMPLEX Rx Instructions: TAKES 3.75 MG ON MON, WED, & FRI. THEN TAKES 2.5 ALL OTHER DAYS. fluoxetine 40 mg capsule 40 mg PO QAM nitroglycerin [Nitrostat] 0.4 mg tablet, sublingual 0.4 mg sublingual Q5M PRN (Reason: Chest Pain) Rx Instructions: do not exceed 3 doses per episode ipratropium bromide 17 mcg/actuation HFA aerosol inhaler 2 puff inhalation QID PRN (Reason: Shortness Of Breath Or Wheezing) amlodipine 2.5 mg Tablet 2.5 mg PO QAM famotidine 20 mg Tablet 20 mg PO HS pantoprazole 40 mg Tablet,Delayed Release (Dr/Ec) 40 mg PO BID mirtazapine 45 mg Tablet 45 mg PO HS fluticasone furoate-vilanterol [Breo Ellipta] 100-25 mcg/dose Blister With Device 1 inh INHALATION QAM alendronate 70 mg tablet 70 mg PO WK hydrocodone-acetaminophen 7.5-325 mg tablet 1 tab PO Q8H PRN (Reason: Pain) aspirin 81 mg Tablet,Chewable 81 mg PO QAM metoprolol succinate 25 mg tablet extended release 24 hr 25 mg PO BID enoxaparin [Lovenox] 60 mg/0.6 mL Syringe 60 mg SUBCUT Q12H buspirone 30 mg tablet 15 mg PO BID Referrals Referrals: Abdon Pa DO [Primary Care Provider] -
[2022-12-05] MEDS ORDERED: OPTIRAY 320 500ml IV ONE (14:43)
[2022-12-05 14:46] LABS: iSTAT Creatinine 0.8 mg/dl (0.6-1.3); iSTAT Hemoglobin 13.3 g/dl (12.0-16.0); iSTAT Ionized Calcium 0.91 mmol/l (1.12-1.32); iSTAT Potassium 3.6 mmol/L (3.3-5.0)
--- NOTE | 2022-12-05 14:53 | CT Scan Report ---
CT angio head w con, CT head/brain wo con, CT angio neck with con CLINICAL HISTORY: neuro deficit, acute stroke suspected TECHNIQUE: Contiguous axial CT images of the head were acquired from the base of the skull to the kathleen abilio without intravenous contrast administration. CT angiography of the head and neck was performed f ollowing intravenous administration of iodinated contrast. Coronal and sagittal MIPS were obtained fr om the axial data set and were submitted for review. Automated dose lowering techniques and/or adjus tment according to patient size were utilized for this examination. All measurements were calculated based on NASCET criteria. CT DOSE: 992.96 mGy.cm Comparison: None available at the time of this dictation. FINDINGS: CT head: Areas of decreased attenuation are present in the periventricular and subcortical white iqra er bilaterally consistent with small vessel ischemic disease. Generalized cerebral atrophy with comme nsurate enlargement of the ventricles, sulci, and cisterns is also present. There is no acute intracr anial hemorrhage or evidence of acute territorial infarction. No shift of the midline structures, mas s effect, or extra-axial abnormalities are shown. Atherosclerotic calcifications are present in the intracranial segments of the internal carotid arteries. Chronic appearing left focal encephalomalacia is seen Extensive emphysema is seen. The esophagus is patulous with some fluid filling noted. CTA Neck: A 3 vessel aortic arch is shown. There is no significant atherosclerotic plaque in the aor tic arch or the origins of the innominate, left common carotid, and left subclavian arteries. The co mmon carotid, external carotid, cervical segments of the internal carotid arteries, and the cervical segments of the vertebral arteries are patent without hemodynamically significant stenosis. The left vertebral artery is dominant. CTA Head: The anterior and posterior cerebral circulations are patent. No hemodynamically significan t stenosis, aneurysm, dissection, or arteriovenous malformation is shown. IMPRESSION: 1. No acute intracranial hemorrhage, evidence of acute territorial infarction, or other acute intrac ranial disease process. Old left parietal infarct is noted. 2. No occlusion, hemodynamically significant stenosis, or dissection in the major cervical arteries. 3. No occlusion, hemodynamically significant stenosis, aneurysm, dissection, or arteriovenous malfor mation in the major intracranial arteries. 4. Patulous esophagus with a small amount of fluid. Assessment of stenosis of the internal carotid arteries is based on NASCET criteria. ACT 112: Negative or not required by law. Electronically signed by: Yemi Kirby M.D. 12/05/2022 2:52 PM
[2022-12-05 14:58] LABS: Basophils # (auto) 0.04 K/uL (0-0.2); Basophils % (auto) 0.5 %; Eosinophils # (auto) 0.15 K/uL (0-0.50); Eosinophils % (auto) 1.8 %; Hematocrit (blood only) 38.1 % (37.0-47.0); Hemoglobin 12.4 g/dl (12.0-16.0); Immature Granulocytes # (auto) 0.02 K/uL (0.01-0.20); Immature Granulocytes % (auto) 0.2 %; Lymphocytes # (auto) 0.97 K/uL (1.2-3.4); Lymphocytes % (auto) 11.7 %; Mean Corpuscular Hemoglobin 30.3 pg (25.0-34.0); Mean Corpuscular Hgb Conc 32.5 g/dL (32.0-36.0); Mean Corpuscular Volume 93.2 fL (80.0-100.0); Mean Platelet Volume 10.9 fL (9.4-12.4); Monocytes # (auto) 0.58 K/uL (0.11-0.59); Neutrophils # (auto) 6.55 K/uL (1.40-6.50); Neutrophils % (auto) 78.8 %; Platelet Count 308 K/uL (130-400); RDW Coefficient of Variation 17.2 % (11.5-14.5); RDW Standard Deviation 58.7 fL (36.4-46.3); Red Blood Count 4.09 M/uL (4.20-5.40); White Blood Count 8.31 K/ul (4.8-10.8)
[2022-12-05 15:10] LABS: Albumin Globulin Ratio 1.3 (0.9-2); Albumin Level 3.7 gm/dl (3.4-5.0); BUN Creatinine Ratio 10.1 (10-20); Bilirubin,Total 0.6 mg/dl (0.2-1.0); Calcium 8.8 mg/dl (8.6-10.3); Creatinine Clr Calc Pharmacy 63.9 ml/min; Est GFR (African American) 89.1 ml/min; Est GFR (Non-African American) 76.9 ml/min; Globulin 2.8 gm/dl (2.5-4.0); Magnesium 1.8 mg/dl (1.7-2.4); Potassium 3.7 mmol/L (3.5-5.1); Total Protein 6.5 gm/dl (6.0-8.3)
[2022-12-05 15:17] LABS: Troponin I High Sensitivity 8.3 pg/ml (0-14)
[2022-12-05 15:29] LABS: INR 2.4 (0.9-1.1); Partial Thromboplastin Ratio 1.2; Partial Thromboplastin Time 33.1 Seconds (21.0-31.0); Prothrombin Time 25.2 Seconds (9.0-12.0)
[2022-12-05 15:31] LABS: Appearance Urine Clear (Clear); Bacteria Urine Automated Negative (Negative); Bilirubin Urine Negative (Negative); Blood Urine Trace (Negative); Cast Urine Automated 0 /lpf (0-5); Color Urine Yellow; Glucose Urine UA Negative (Negative); Ketones Urine Negative (Negative); Leukocyte Esterase Urine Negative (Negative); Nitrite Urine Negative (Negative); Protein Urine Negative (Negative); RBC Urine Automated 0-4 /hpf (0-4); Specific Gravity Urine 1.014 (1.000-1.030); Urobilinogen Urine Negative (Negative); WBC Urine Automated 0 /hpf (0-5); pH Urine 6.5 (4.5-7.5)
--- NOTE | 2022-12-05 15:54 | History & Physical Report ---
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 LUE numbness LLE weakness Developed earlier today, have since resolved Head CT, CTA head, neck with 1. No acute intracranial hemorrhage, evidence of acute territorial infarction, or other acute intracranial disease process. Old left parietal infarct is noted. 2. No occlusion, hemodynamically significant stenosis, or dissection in the major cervical arteries. 3. No occlusion, hemodynamically significant stenosis, aneurysm, dissection, or arteriovenous malformation in the major intracranial arteries. 4. Patulous esophagus with a small amount of fluid. TNK contraindicated in ED due to INR 2.3 Telestroke neurologist recommending further workup with brain MRI w/wo, echo with bubble study, neuro consult and MRI c spine as poss. etiology Dysphagia screen, ADAT, PT/OT/speech therapy History of CVA with residual expressive aphasia History of CVA in 2004. On aspirin, atorvastatin CAD Continue aspirin, Toprol and Valsartan Paroxysmal atrial fibrillation Continue Metoprolol ER and coumadin. INR 2.4 today, continue trending HTN Continue Amlodipine, and Valsartan Systolic HF S/P aortic valve replacement Recently started on MoWeFr Lasix 20mg, continue Entresto and Metoprolol ER MDD Anxiety Continue Pristiq, and Mirtazapine DVT Ppx: coumadin Code status: per discussion, patient is a FULL CODE. Made it clear that she would want initial full resuscitative effort but would not want life prolonged on a vent PCP: Ember Dispo: Admitted to PCU Patient seen in collaboration with Dr. Lizarraga. Please see addendum. I spent a total of 80 minutes coordinating, documenting, and providing care for this patient excluding time spent in the performance of separately billed services. History of Present Illness Chief Complaint: LUE numbness Primary Care Provider: Abdon Pa DO This is a 66yo F with a PMH of systolic heart failure, 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 Has had a stressful week but felt well until this morning after she let her dog out. 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 Has been sleeping in her chair over the past few weeks. 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 Describes numbness as starting in palmar aspect of L hand and eventually spreading to L shoulder. Also notes feeling unsteady on her feet but did not fall. Denies any neck pain in the past few days. Numbness has resolved but still feels tired. No falls. No fever, chills, lightheadedness, CP, SOB, N/V, abdominal pain, dysuria, diarrhea or constipation. Allergies Allergy/AdvReac Type Severity Reaction Status Date / Time clopidogrel [From Plavix] Allergy Severe SWELLING Verified 12/05/22 15:52 OF FACE/LIPS/TONGUE ticagrelor [From Brilinta] Allergy Severe SWELLING Verified 12/05/22 15:52 OF FACE/LIPS/TONGUE oxycodone Allergy Intermediate EDEMA Verified 12/05/22 15:52 Home Medications Medication Instructions Recorded Confirmed Type ipratropium bromide 17 2 puff inhalation QID PRN 08/26/20 12/05/22 History mcg/actuation HFA aerosol inhaler Shortness Of Breath Or Wheezing nitroglycerin 0.4 mg sublingual 0.4 mg sublingual Q5M PRN Chest 08/26/20 12/05/22 History tablet (Nitrostat) Pain sacubitril 97 mg-valsartan 103 mg 1 tab PO BID 08/26/20 12/05/22 History tablet (Entresto) warfarin 2.5 mg tablet 2.5 mg PO DAILY@1600 08/26/20 12/05/22 History amlodipine 2.5 mg tablet 2.5 mg PO QAM 09/30/21 12/05/22 History famotidine 20 mg tablet 20 mg PO MOWEFR@0900 09/30/21 12/05/22 History fluticasone furoate 100 1 inh inhalation QAM PRN Shortness 09/30/21 12/05/22 History mcg-vilanterol 25 mcg/dose Of Breath inhalation powder (Breo Ellipta) mirtazapine 45 mg tablet 45 mg PO HS 09/30/21 12/05/22 History pantoprazole 40 mg tablet,delayed 40 mg PO BID 09/30/21 12/05/22 History release alendronate 70 mg tablet 70 mg PO WK 12/26/21 12/05/22 History aspirin 81 mg chewable tablet 81 mg PO QAM 12/26/21 12/05/22 History hydrocodone 7.5 mg-acetaminophen 1 tab PO Q8H PRN Pain 12/26/21 12/05/22 History 325 mg tablet metoprolol succinate 25 mg 25 mg PO BID 12/26/21 12/05/22 History tablet,extended release 24 hr buspirone 30 mg tablet 15 mg PO BID 03/03/22 12/05/22 History atorvastatin 40 mg tablet 40 mg PO HS 12/05/22 12/05/22 History calcium carbonate 500 mg calcium 500 mg PO DAILY 12/05/22 12/05/22 History (1,250 mg) tablet cholecalciferol (vitamin D3) 50 50 mcg PO DAILY 12/05/22 12/05/22 History mcg (2,000 unit) capsule (Vitamin D3) desvenlafaxine succinate 100 mg 100 mg PO QAM 12/05/22 12/05/22 History tablet,extended release 24 hr furosemide 20 mg tablet 20 mg PO 3XWK 12/05/22 12/05/22 History ondansetron HCl 4 mg tablet 4 mg PO Q8H PRN NAUSEA/VOMITING 12/05/22 12/05/22 History Past Med/Surg History Medical History (Updated 12/05/22 @ 16:35 by Ramona Quiroz PA-C) Anxiety Aphasia, mixed Atrial fibrillation paroxysmal CAD (coronary artery disease) multivessel CAD, s/p multiple stents, CABG x 1, follows with [facility] cardiology Carotid artery stenosis < 50% stenosis CHF (congestive heart failure) EF 45-50% grade 2 diastolic dysfunction COPD (chronic obstructive pulmonary disease) 2L O2 at night and as needed during the day CVA (cerebral vascular accident) 2004; embolic per cardio records; residual dysphagia, some expressiv e/receptive aphasia, improved with speech therapy Depression Dysphagia GERD (gastroesophageal reflux disease) History of anesthesia reaction pt has some expressive aphasia r/t previous stroke, had difficult time explaining anesthesia problem. says she had difficulty breathing coming out of anesthesia in past. unable to elaborate beyond that. says occurence x 1 while living in [place]. History of blood transfusion 2004 History of myocardial infarction 1991 HLD (hyperlipidemia) HTN (hypertension) Osteoporosis Poor historian poor memory Throat fullness reason for EGD Surgical History (Updated 12/05/22 @ 16:34 by Ramona Quiroz PA-C) H/O heart artery stent 5 stents (thinks last placed in 2019) History of cardiac catheterization multiple (believes most recent was in 2019 while living in [place]) History of heart valve replacement aortic valve replacement 09/23/2019 History of open heart surgery [place] - Sep 23, 2019 History of tonsillectomy History of wisdom tooth extraction Hx laparoscopic cholecystectomy (12/29/21) Laparoscopic Cholecystectomy (Not Applicable) - Felipe Lew, 12/29/2021. Grade 1 view, MAC 3, ETT 7.0 atraumatic x 1. Status post laparoscopic cholecystectomy Family History Other Hypertension Social History Smoking Status: Current some day smoker Tobacco Type: Cigarettes packs per day: 0.25; Second Hand Exposure: No; Do You Dip or Chew Tobacco: No; Hx Alcohol Use: No Hx Substance Use: No Preferred Language: Yoruba Communication Ability: Effective Visual Impairment: Limited Hearing Ability: Normal Foreign Correspondent Required: No Beliefs That Will Affect Care: None marital status: / Current Living Situation: Alone current occupational status: disabled current occupation: on disability since 2004 Other Information That Helps Us Care for You: No Feels Safe at Home: Yes Safety Concerns: Feels Safe At This Time Assistive Devices: Denture - Upper, Denture - Lower and Glasses Review of Systems Review of Systems: At least ten systems reviewed and negative except as noted in the HPI. Physical Exam Physical Exam: Please see Dr. Lizarraga's addendum for physical exam. Results & Data Results & Data Vital Signs (Past 12 Hours) Vital Signs Temp Pulse Pulse Resp BP BP Pulse Ox 12/05/22 15:50 67 12/05/22 15:30 69 20 149/88 H 92 12/05/22 15:28 71 18 163/91 H 93 12/05/22 15:05 70 22 163/91 H 96 12/05/22 15:00 67 17 95 12/05/22 14:44 95 12/05/22 14:33 36.6 C 63 20 139/83 96 O2 Del Method 12/05/22 15:50 12/05/22 15:30 Room Air 12/05/22 15:28 12/05/22 15:05 Room Air 12/05/22 15:00 Room Air 12/05/22 14:44 Nasal Cannula 12/05/22 14:33 Room Air Laboratory Results Short CBC 12/05/22 Range/Units 14:30 WBC 8.31 (4.8-10.8) K/ul Hgb 12.4 (12.0-16.0) g/dl Hct 38.1 (37.0-47.0) % Plt Count 308 (130-400) K/uL BMP 12/05/22 14:30 Sodium 140 Potassium 3.7 Chloride 103 Carbon Dioxide 30 BUN 8 Creatinine 0.79 Glucose 112 H Calcium 8.8 Liver Function 12/05/22 Range/Units 14:30 Total Bilirubin 0.6 (0.2-1.0) mg/dl AST 20 (13-39) U/L ALT 13 (7-52) U/L Alkaline Phosphatase 127 H (34-104) U/L Albumin 3.7 (3.4-5.0) gm/dl Urine 12/05/22 Range/Units 14:56 Urine Color Yellow Urine Appearance Clear (Clear) Urine pH 6.5 (4.5-7.5) Ur Specific [place] 1.014 (1.000-1.030) Urine Protein Negative (Negative) Urine Glucose (UA) Negative (Negative) Diagnostic Findings Head CT 12/05/22 14:28 CT angio head w con, CT head/brain wo con, CT angio neck with con CLINICAL HISTORY: neuro deficit, acute stroke suspected TECHNIQUE: Contiguous axial CT images of the head were acquired from the base of the skull to the vertex without intravenous contrast administration. CT angiography of the head and neck was performed following intravenous administration of iodinated contrast. Coronal and sagittal MIPS were obtained from the axial data set and were submitted for review. Automated dose lowering techniques and/or adjustment according to patient size were utilized for this examination. All measurements were calculated based on NASCET criteria. CT DOSE: 992.96 mGy.cm Comparison: None available at the time of this dictation. FINDINGS: CT head: Areas of decreased attenuation are present in the periventricular and subcortical white matter bilaterally consistent with small vessel ischemic disease. Generalized cerebral atrophy with commensurate enlargement of the ventricles, sulci, and cisterns is also present. There is no acute intracranial hemorrhage or evidence of acute territorial infarction. No shift of the midline structures, mass effect, or extra-axial abnormalities are shown. Atherosclerotic calcifications are present in the intracranial segments of the internal carotid arteries. Chronic appearing left focal encephalomalacia is seen Extensive emphysema is seen. The esophagus is patulous with some fluid filling noted. CTA Neck: A 3 vessel aortic arch is shown. There is no significant atherosclerotic plaque in the aortic arch or the origins of the innominate, left common carotid, and left subclavian arteries. The common carotid, external carotid, cervical segments of the internal carotid arteries, and the cervical segments of the vertebral arteries are patent without hemodynamically significant stenosis. The left vertebral artery is dominant. CTA Head: The anterior and posterior cerebral circulations are patent. No hemodynamically significant stenosis, aneurysm, dissection, or arteriovenous malformation is shown. IMPRESSION: 1. No acute intracranial hemorrhage, evidence of acute territorial infarction, or other acute intracranial disease process. Old left parietal infarct is noted. 2. No occlusion, hemodynamically significant stenosis, or dissection in the major cervical arteries. 3. No occlusion, hemodynamically significant stenosis, aneurysm, dissection, or arteriovenous malformation in the major intracranial arteries. 4. Patulous esophagus with a small amount of fluid. Assessment of stenosis of the internal carotid arteries is based on NASCET criteria. ACT 112: Negative or not required by law. Electronically signed by: Yemi Kirby M.D. 12/05/2022 2:52 PM Head CTA 12/05/22 14:28 CT angio head w con, CT head/brain wo con, CT angio neck with con CLINICAL HISTORY: neuro deficit, acute stroke suspected TECHNIQUE: Contiguous axial CT images of the head were acquired from the base of the skull to the vertex without intravenous contrast administration. CT angiography of the head and neck was performed following intravenous administration of iodinated contrast. Coronal and sagittal MIPS were obtained from the axial data set and were submitted for review. Automated dose lowering techniques and/or adjustment according to patient size were utilized for this examination. All measurements were calculated based on NASCET criteria. CT DOSE: 992.96 mGy.cm Comparison: None available at the time of this dictation. FINDINGS: CT head: Areas of decreased attenuation are present in the periventricular and subcortical white matter bilaterally consistent with small vessel ischemic disease. Generalized cerebral atrophy with commensurate enlargement of the ventricles, sulci, and cisterns is also present. There is no acute intracranial hemorrhage or evidence of acute territorial infarction. No shift of the midline structures, mass effect, or extra-axial abnormalities are shown. Atherosclerotic calcifications are present in the intracranial segments of the internal carotid arteries. Chronic appearing left focal encephalomalacia is seen Extensive emphysema is seen. The esophagus is patulous with some fluid filling noted. CTA Neck: A 3 vessel aortic arch is shown. There is no significant atherosclerotic plaque in the aortic arch or the origins of the innominate, left common carotid, and left subclavian arteries. The common carotid, external carotid, cervical segments of the internal carotid arteries, and the cervical segments of the vertebral arteries are patent without hemodynamically significant stenosis. The left vertebral artery is dominant. CTA Head: The anterior and posterior cerebral circulations are patent. No hemodynamically significant stenosis, aneurysm, dissection, or arteriovenous malformation is shown. IMPRESSION: 1. No acute intracranial hemorrhage, evidence of acute territorial infarction, or other acute intracranial disease process. Old left parietal infarct is noted. 2. No occlusion, hemodynamically significant stenosis, or dissection in the major cervical arteries. 3. No occlusion, hemodynamically significant stenosis, aneurysm, dissection, or arteriovenous malformation in the major intracranial arteries. 4. Patulous esophagus with a small amount of fluid. Assessment of stenosis of the internal carotid arteries is based on NASCET criteria. ACT 112: Negative or not required by law. Electronically signed by: Yemi Kirby M.D. 12/05/2022 2:52 PM Neck CTA 12/05/22 14:28 CT angio head w con, CT head/brain wo con, CT angio neck with con CLINICAL HISTORY: neuro deficit, acute stroke suspected TECHNIQUE: Contiguous axial CT images of the head were acquired from the base of the skull to the vertex without intravenous contrast administration. CT angiography of the head and neck was performed following intravenous administration of iodinated contrast. Coronal and sagittal MIPS were obtained from the axial data set and were submitted for review. Automated dose lowering techniques and/or adjustment according to patient size were utilized for this examination. All measurements were calculated based on NASCET criteria. CT DOSE: 992.96 mGy.cm Comparison: None available at the time of this dictation. FINDINGS: CT head: Areas of decreased attenuation are present in the periventricular and subcortical white matter bilaterally consistent with small vessel ischemic disease. Generalized cerebral atrophy with commensurate enlargement of the ventricles, sulci, and cisterns is also present. There is no acute intracranial hemorrhage or evidence of acute territorial infarction. No shift of the midline structures, mass effect, or extra-axial abnormalities are shown. Atherosclerotic calcifications are present in the intracranial segments of the internal carotid arteries. Chronic appearing left focal encephalomalacia is seen Extensive emphysema is seen. The esophagus is patulous with some fluid filling noted. CTA Neck: A 3 vessel aortic arch is shown. There is no significant atherosclerotic plaque in the aortic arch or the origins of the innominate, left common carotid, and left subclavian arteries. The common carotid, external carotid, cervical segments of the internal carotid arteries, and the cervical segments of the vertebral arteries are patent without hemodynamically significant stenosis. The left vertebral artery is dominant. CTA Head: The anterior and posterior cerebral circulations are patent. No hemodynamically significant stenosis, aneurysm, dissection, or arteriovenous malformation is shown. IMPRESSION: 1. No acute intracranial hemorrhage, evidence of acute territorial infarction, or other acute intracranial disease process. Old left parietal infarct is noted. 2. No occlusion, hemodynamically significant stenosis, or dissection in the major cervical arteries. 3. No occlusion, hemodynamically significant stenosis, aneurysm, dissection, or arteriovenous malformation in the major intracranial arteries. 4. Patulous esophagus with a small amount of fluid. Assessment of stenosis of the internal carotid arteries is based on NASCET criteria. ACT 112: Negative or not required by law. Electronically signed by: Yemi Kirby M.D. 12/05/2022 2:52 PM ECG Additional Comments: EKG reviewed- NSR at [address] elevation. Supervising Physician Co-Signing Physician Notes Pt is a 66 y/o F with hx of CVA with expressive aphasia, COPD, CAD s/p CABG, afib on coumadin, HTN, HLD, osteoporosis, Depression, Anxiety, HFpEF, AVR admitted for acute onset of L hand numbness. Pt has been sleeping in a chair bc her bed has bedbugs. At bedside: symptoms are resolved. PE: NAD, well developed Cardiac: normal S1/S2 with possible systolic murmur Lungs: CTA, no wheezing or crackles Abd: ND, soft, NT Neuro: PERRLA, EOMI, CN II-XII intact, overall good strength but slight decrease in strength at hip flexion MSK: no LE edema Psych: AAOx3, normal affect A/P: LUE numbness: -resolved on exam -CTA head/Neck and CT head: no acute finding but incidental finding of Patulous esophagus with a small amount of fluid --- no GI symptoms and will continue Pepcid -symptoms could be 2/2 MSK irritation from sleeping in a chair for 1 week --- however due to hx of CVA will get MRI brain, echo and neurology consult -will also obtain MRI C spine -will get PT/OT eval Other chronic conditions: plan as above Agree with A/P by Ramona Quiroz PA-C
[2022-12-05] MEDS ORDERED: ONDANSETRON INJ 2 MG/ML 2 ML VIAL IV PRN (18:13)
[2022-12-05] MEDS ORDERED: ACETAMINOPHEN 325 MG TAB PO PRN (18:13)
[2022-12-05] MEDS ORDERED: PHARMACIST DISCHARGE MED REC CONSULT PRN (18:13)
[2022-12-05] MEDS ORDERED: POLYETHYLENE (MIRALAX) 17 GM PACK PO PRN (18:13)
[2022-12-05] MEDS ORDERED: FLUTICASONE/VILANTEROL 100/25MCG 14 PUFFS/INHALER INH PRN (21:47)
[2022-12-05] MEDS ORDERED: HYDROCODONE/ACETAMINOPHEN 7.5/325MG TAB PO PRN (21:47)
[2022-12-05] MEDS ORDERED: IPRATROPIUM BROMIDE HFA INHALER INH PRN (21:47)
[2022-12-05] MEDS ORDERED: WARFARIN SOD 2.5 MG TAB PO SCH (21:50)
[2022-12-05] MEDS ORDERED: MIRTAZAPINE SOLTAB 15 MG PO SCH (21:50)
[2022-12-05] MEDS ORDERED: ATORVASTATIN 40 MG TAB PO SCH (21:50)
[2022-12-05] MEDS ORDERED: GADOBUTROL 65ML VIAL IV ONE (21:51)
[2022-12-05] MEDS: busPIRone 15 MG TAB PO SCH (22:21)
--- NOTE | 2022-12-05 22:22 | Magnetic Resonance Report ---
Exam(s): MRI HEAD W/WO Contrast IV Amt: 9.5ml gadavist EXAM: MR Head Without and With Intravenous Contrast CLINICAL HISTORY: Reason for exam: stroke eval L sided weakness. TECHNIQUE: Magnetic resonance images of the head/brain without and with intravenous contrast in multiple planes. Mild motion artifact. CONTRAST: Patient received 9.5ml Gadavist of IV contrast COMPARISON: CT/CTA head done earlier. FINDINGS: Brain: Large cystic encephalomalacia left parietal lobe. Moderate, chronic, nonspecific white matter disease. No edema or acute infarct. No acute or chronic hemorrhage. No abnormal enhancement. Ventricles: No hydrocephalus or midline shift. Bones/joints: No calvarial lesions. Soft tissues: No scalp hematoma. Sinuses: Clear. Mastoid air cells: No mastoid effusion. IMPRESSION: 1. Stable encephalomalacia left parietal lobe, atrophy and chronic white matter disease. 2. No abnormal enhancement, acute infarct, bleed, or acute intracranial abnormality. Electronically signed by: Randa Kim M.D. 12/05/22 22:21 PM
--- NOTE | 2022-12-05 22:32 | Magnetic Resonance Report ---
Exam(s): MRI C SPINE IV Amt: 9.5ml gadavist EXAM: MR Cervical Spine With Intravenous Contrast CLINICAL HISTORY: Reason for exam: LUE weakness. TECHNIQUE: Magnetic resonance images of the cervical spine with intravenous contrast in multiple planes. Mild motion artifact. CONTRAST: Patient received 9.5ml Gadavist of IV contrast COMPARISON: CT/CTA head done earlier FINDINGS: Vertebrae: Normal, smooth curvature. No marrow edema or compression deformity. No abnormal enhancement. Spinal cord: Unremarkable. Normal signal. No abnormal enhancement. Soft tissues: Unremarkable. DISCS/SPINAL CANAL/NEURAL FORAMINA: C2-C3: Mild degenerative disease. No stenosis. C3-C4: Mild degenerative disease. No stenosis. C4-C5: Mild degenerative disease. No stenosis. C5-C6: Mild degenerative disease. No stenosis. C6-C7: Mild degenerative disease. No stenosis. C7-T1: No significant disc disease. No stenosis. Other: No disc herniation. Facet joint fairly well-preserved. No abnormal enhancement. No significant foraminal stenosis. IMPRESSION: 1. Mild diffuse degenerative change throughout the cervical spine, commensurate with age. 2. No disc herniation, central spinal stenosis, abnormal cord signal or abnormal enhancement. Electronically signed by: Randa Kim M.D. 12/05/22 22:31 PM
[2022-12-06 07:32] LABS: Hematocrit (blood only) 35.1 % (37.0-47.0); Hemoglobin 11.9 g/dl (12.0-16.0); Mean Corpuscular Hemoglobin 30.7 pg (25.0-34.0); Mean Corpuscular Hgb Conc 33.9 g/dL (32.0-36.0); Mean Corpuscular Volume 90.5 fL (80.0-100.0); Mean Platelet Volume 11.2 fL (9.4-12.4); Platelet Count 266 K/uL (130-400); RDW Coefficient of Variation 17.2 % (11.5-14.5); Red Blood Count 3.88 M/uL (4.20-5.40); White Blood Count 7.47 K/ul (4.8-10.8)
[2022-12-06 07:43] LABS: INR 1.8 (0.9-1.1); Prothrombin Time 18.8 Seconds (9.0-12.0)
--- NOTE | 2022-12-06 07:59 | Neurology Consultation ---
Date of Consultation December 06, 2022 Assessment & Plan (1) Stroke-like symptoms: (2) History of CVA (cerebrovascular accident): Plan 66-year-old female with possible TIA, characterized by transient sensory disturbance to the left upper limb, complete symptomatic resolution prior to her evaluation in the emergency department, history of remote posterior left MCA stroke with residual mild aphasia, no hemiparesis. History notable for atrial fibrillation, on warfarin, aortic valve replacement. Therapeutic pro time at time of presentation. History also notable for hypertension, she has been modestly hypertensive in the context of this current hospitalization. She is on several chronic antihypertensives, as well as daily low-dose aspirin in addition to her 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. She has a remote history of cigarette smoking. She does not have diabetes mellitus. No significant vascular lesions identified on CT angiography of the head and neck. No acute stroke identified on brain MRI. No significant abnormality on cervical spine MRI, thus making radicular symptoms unlikely. Patient should continue with warfarin and daily low-dose aspirin. However, if she were to have additional similar episodes going forward, would consider potentially switching her 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 to Eliquis in light of her history of atrial fibrillation. Continue with atorvastatin at the current dosage. Her current lipid panel including LDL or appropriate. Patient will need ongoing follow-up with her PCP regarding cardiovascular risk factors, management of hypertension. No further immediate recommendations, please call with any questions. History of Present Illness Reason for Consultation: KERRY camarena, h/o CVA Requesting Physician: Ramona Quiroz PA-C Attending Physician: Jesus Vasquez MD History of Present Illness The patient is a 66-year-old female who presented to the emergency department yesterday with a chief complaint of numbness and tingling of the left hand that began over 2 hours prior. The sensory disturbance had spread proximally, up the left upper limb, but then regressed back to the hand prior to her ED assessment. No other associated symptoms reported at that time. Past medical history notable for left hemispheric stroke occurring in 2004 with residual aphasia, paroxysmal atrial fibrillation, on warfarin, coronary artery disease, hypertension, history of aortic valve replacement, anxiety disorder. Her pro time was therapeutic at the time of her initial evaluation. Imaging was negative for acute process. She was noted to have chronic aphasia on examination but also had some weakness and clumsiness of the left leg. Follow- up MRI of the brain and cervical spine have been completed as well. I independently reviewed these images. There is no evidence of acute or subacute infarct on MRI, no abnormality on GRE sequences to suggest hemorrhage or blood products, there is age advanced chronic microvascular ischemic disease throughout both cerebral hemispheres, subcortical and periventricular distribution. The chronic posterior left MCA stroke was again appreciated. No myelopathy observed on cervical spine MRI, there is mild multilevel degenerative change, no significant stenosis or foraminal encroachment. The patient denies any recurrence of her left arm numbness, tingling, or any associated weakness this morning. She endorses chronic, mild, difficulty with speech ever since her stroke in 2004. She recalls having some associated right- sided weakness at that time although this issue had subsequently resolved. She currently feels as if she is back to her usual self, no headache, vision disturbance, vertigo, change in speech, hemiplegia, or other significant neurologic signs or symptoms at this point in time, other than her chronic mild aphasia. Allergies Allergy/AdvReac Type Severity Reaction Status Date / Time clopidogrel [From Plavix] Allergy Severe SWELLING Verified 12/05/22 15:52 OF FACE/LIPS/TONGUE ticagrelor [From Brilinta] Allergy Severe SWELLING Verified 12/05/22 15:52 OF FACE/LIPS/TONGUE oxycodone Allergy Intermediate EDEMA Verified 12/05/22 15:52 Home Medications Medication Instructions Recorded Confirmed Type ipratropium bromide 17 2 puff inhalation QID PRN 08/26/20 12/05/22 History mcg/actuation HFA aerosol inhaler Shortness Of Breath Or Wheezing nitroglycerin 0.4 mg sublingual 0.4 mg sublingual Q5M PRN Chest 08/26/20 12/05/22 History tablet (Nitrostat) Pain sacubitril 97 mg-valsartan 103 mg 1 tab PO BID 08/26/20 12/05/22 History tablet (Entresto) warfarin 2.5 mg tablet 2.5 mg PO DAILY@1600 08/26/20 12/05/22 History amlodipine 2.5 mg tablet 2.5 mg PO QAM 09/30/21 12/05/22 History famotidine 20 mg tablet 20 mg PO MOWEFR@0900 09/30/21 12/05/22 History fluticasone furoate 100 1 inh inhalation QAM PRN Shortness 09/30/21 12/05/22 History mcg-vilanterol 25 mcg/dose Of Breath inhalation powder (Breo Ellipta) mirtazapine 45 mg tablet 45 mg PO HS 09/30/21 12/05/22 History pantoprazole 40 mg tablet,delayed 40 mg PO BID 09/30/21 12/05/22 History release alendronate 70 mg tablet 70 mg PO WK 12/26/21 12/05/22 History aspirin 81 mg chewable tablet 81 mg PO QAM 12/26/21 12/05/22 History hydrocodone 7.5 mg-acetaminophen 1 tab PO Q8H PRN Pain 12/26/21 12/05/22 History 325 mg tablet metoprolol succinate 25 mg 25 mg PO BID 12/26/21 12/05/22 History tablet,extended release 24 hr buspirone 30 mg tablet 15 mg PO BID 03/03/22 12/05/22 History atorvastatin 40 mg tablet 40 mg PO HS 12/05/22 12/05/22 History calcium carbonate 500 mg calcium 500 mg PO DAILY 12/05/22 12/05/22 History (1,250 mg) tablet cholecalciferol (vitamin D3) 50 50 mcg PO DAILY 12/05/22 12/05/22 History mcg (2,000 unit) capsule (Vitamin D3) desvenlafaxine succinate 100 mg 100 mg PO QAM 12/05/22 12/05/22 History tablet,extended release 24 hr furosemide 20 mg tablet 20 mg PO 3XWK 12/05/22 12/05/22 History ondansetron HCl 4 mg tablet 4 mg PO Q8H PRN NAUSEA/VOMITING 12/05/22 12/05/22 History Patient History Medical History (Updated 12/05/22 @ 16:35 by Ramona Quiroz PA-C) Anxiety Aphasia, mixed Atrial fibrillation paroxysmal CAD (coronary artery disease) multivessel CAD, s/p multiple stents, CABG x 1, follows with [facility] cardiology Carotid artery stenosis < 50% stenosis CHF (congestive heart failure) EF 45-50% grade 2 diastolic dysfunction COPD (chronic obstructive pulmonary disease) 2L O2 at night and as needed during the day CVA (cerebral vascular accident) 2004; embolic per cardio records; residual dysphagia, some expressive/receptive aphasia, improved with speech therapy Depression Dysphagia GERD (gastroesophageal reflux disease) History of anesthesia reaction pt has some expressive aphasia r/t previous stroke, had difficult time explaining anesthesia problem. says she had difficulty breathing coming out of anesthesia in past. unable to elaborate beyond that. says occurence x 1 while living in [place]. History of blood transfusion 2004 History of myocardial infarction 1991 HLD (hyperlipidemia) HTN (hypertension) Osteoporosis Poor historian poor memory Throat fullness reason for EGD Surgical History (Updated 12/05/22 @ 16:34 by Ramona Quiroz PA-C) H/O heart artery stent 5 stents (thinks last placed in 2019) History of cardiac catheterization multiple (believes most recent was in 2020 while living in [place]) History of heart valve replacement aortic valve replacement 09/23/2019 History of open heart surgery [place] - Sep 23, 2019 History of tonsillectomy History of wisdom tooth extraction Hx laparoscopic cholecystectomy (12/29/21) Laparoscopic Cholecystectomy (Not Applicable) - [facility], 12/29/2021. Grade 1 view, MAC 3, ETT 7.0 atraumatic x 1. Status post laparoscopic cholecystectomy Family History Other Hypertension Social History Smoking Status: Current some day smoker Tobacco Type: Cigarettes packs per day: 0.25; Second Hand Exposure: No; Do You Dip or Chew Tobacco: No; Hx Alcohol Use: No Hx Substance Use: No Preferred Language: Croatian Communication Ability: Effective Visual Impairment: Limited Hearing Ability: Normal Blood Bank Technician Required: No Beliefs That Will Affect Care: None marital status: / Current Living Situation: Alone current occupational status: disabled current occupation: on disability since 2004 Other Information That Helps Us Care for You: No Feels Safe at Home: Yes Safety Concerns: Feels Safe At This Time Assistive Devices: Denture - Upper, Denture - Lower and Glasses Review of Systems Constitutional: no fever and no chills Eyes: no blind spots and no diplopia Ear, Nose, Mouth, Throat: no tinnitus and no hearing loss Respiratory: no cough and no dyspnea Cardiovascular: no chest pain and no palpitations Gastrointestinal: no nausea and no vomiting Genitourinary: no dysuria Musculoskeletal: no back pain and no neck pain Integumentary: no rash and no lesions Neurologic: as per Subjective / HPI Psychiatric: no depression and no anxiety Hematologic / Lymphatic: no easy bleeding and no easy bruising Exam (Neuro) Constitutional: well developed and well nourished; no acute distress Eyes: normal visual roberson by confrontation, PERRL, normal accommodation and EOM intact bilaterally; no fundoscopic abnormality, no nystagmus and no papilledema Cardiovascular: Vessels: normal carotid upstroke; no carotid bruit Neurologic: Oriented to:: Person, Place and Time Memory: Short Term Intact and Remote Intact Attention: Span Intact and Concentration Intact Language: Naming Objects and Repeating Phrases Speech Fluency: negative Dysarthria Speech Aphasia: Aphasia (Very mild aphasia noted, speech hesitancy, very mild difficulty with object naming noted.) Fund of Knowledge: Current Events, Past History and Vocabulary Cranial Nerves: Normal II (Visual roberson full to confrontation, visual acuity normal), III, IV, (Pupils equal round reactive to light and accommodation, eye movements normal), V (Facial sensation intact), VII (There is no facial droop or weakness), VIII (Hearing intact), IX, X (Palate elevates to midline), XI (Shoulder shrug intact) and XII (Tongue protrudes to midline) Motor Strength: Normal Lower Extremities and Normal Upper Extremities; negative Pronator Drift Motor Tone: Normal Lower Extremities and Normal Upper Extremities Muscle Bulk/Involuntary Movements: No Involuntary Movements; negative Muscle Atrophy Sensation: Light Touch Intact, Pain/Temperature Intact, Vibration Intact and Proprioception Intact Coordination: Normal; negative Limited Balance, Dysdiadochokinesia, Finger-Nose Abnormal or Heel-Chilel Abnormal Deep Tendon Reflexes: Rt Triceps: 2+, Lt Triceps: 2+, Rt Biceps: 2+, Lt Biceps: 2+, Rt Brachioradialis: 2+, Lt Brachioradialis: 2+, Rt Patellar: 2+, Lt Patellar: 2+, Rt Ankle: 2+ and Lt Ankle: 2+ Special Tests: negative Babinski Present Gait: Normal Station and Gait Results & Data Vital Signs (Past 12 Hours) Vital Signs Temp Pulse Pulse Resp BP Pulse Ox O2 Del Method 12/06/22 02:37 36.6 C 76 18 132/78 95 Room Air 12/05/22 23:45 79 12/05/22 22:31 36.6 C 90 18 138/83 96 Room Air 12/05/22 20:00 Room Air Laboratory Results WBC 7.47, hemoglobin 11.9, hematocrit 35.1, platelet count 266, sodium 141, potassium 3.4, BUN 9, creatinine 0.83, glucose 92, hemoglobin A1c 5.8, calcium 8.4, magnesium 1.8, triglycerides 89, cholesterol 116, LDL 51, VLDL 18, HDL [address] of the head including CT angiography of the head and neck, brain MRI, and C- spine MRI are as described in the history of present illness. I independently reviewed these images. Electrocardiogram revealed a sinus rhythm with a heart rate of 64 bpm, old septal infarct. PG Care Time/CCT Total # of Minutes Spent Total Time Spent with Patient: Total time spent is greater than 50% in coordination of care (as documented) at patient's floor/unit and/or counseling patient: 80 minutes Coding Level of Care Code 90799 INT INP/OBS CARE 3/75MIN Diagnoses Stroke-like symptoms R29.90 History of CVA (cerebrovascular accident) Z86.73
[2022-12-06] MEDS ORDERED: CHOLECALCIFEROL 1,000 UNITS 25 MCG TAB PO SCH (09:00)
[2022-12-06] MEDS ORDERED: CALCIUM CARBONATE 1250MG TAB PO SCH (09:00)
[2022-12-06] MEDS ORDERED: FUROSEMIDE 20 MG TAB PO SCH (09:00)
[2022-12-06] MEDS ORDERED: VALSARTAN/SACUBITRIL 103/97MG TAB PO SCH (09:00)
[2022-12-06] MEDS ORDERED: amLODIPine BESYLATE 5 MG TAB PO SCH (09:00)
[2022-12-06] MEDS ORDERED: ASPIRIN 81 MG ECTAB PO SCH (09:00)
[2022-12-06] MEDS ORDERED: PANTOprazole 40 MG TAB PO SCH (09:00)
[2022-12-06] MEDS ORDERED: METOPROLOL SUCC 25MG EXT REL TAB PO SCH (09:00)
[2022-12-06] MEDS ORDERED: FAMOTIDINE 20 MG TAB PO SCH (09:00)
[2022-12-06] MEDS: busPIRone 15 MG TAB PO SCH (09:17)
[2022-12-06 09:18] LABS: Estimated Average Glucose 120 mg/dl; Hemoglobin A1C 5.8 % (4.5-5.6)
[2022-12-06 09:44] LABS: BUN Creatinine Ratio 10.8 (10-20); Calcium 8.4 mg/dl (8.6-10.3); Chol HDL Ratio 2.5 (0-5); Est GFR (Non-African American) 72.5 ml/min; Potassium 3.4 mmol/L (3.5-5.1)
[2022-12-06] MEDS ORDERED: POTASSIUM CHLORIDE CRTAB 20 MEQ TABCR PO STA (11:50)
--- NOTE | 2022-12-06 12:00 | Hospitalist Progress Note ---
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 Possible TIA LUE numbness LLE weakness Developed earlier today, have since resolved Head CT, CTA head, neck with 1. No acute intracranial hemorrhage, evidence of acute territorial infar ction, or other acute intracranial disease process. Old left parietal infarct is noted. 2. No occlusion, hemodynamically significant stenosis, or dissection in the major cervical arteries. 3. No occlusion, hemodynamically significant stenosis, aneurysm, dissection, or arteriovenous malformation in the major intracranial arteries. 4. Patulous esophagus with a small amount of fluid. TNK contraindicated in ED due to INR 2.3 Telestroke neurologist recommending further workup with brain MRI w/wo, echo with bubble study, neuro consult and MRI c spine as poss. etiology Dysphagia screen, ADAT, PT/OT/speech therapy Brain MRI - 1. Stable encephalomalacia left parietal lobe, atrophy and chronic white matter disease. 2. No abnormal enhancement, acute infarct, bleed, or acute intracranial abnormality. Cervical spine MRI- 1. Mild diffuse degenerative change throughout the cervical spine, commensurate with age. 2. No disc herniation, central spinal stenosis, abnormal cord signal or abnormal enhancement. Echo LV is normal in size. LV wall thickness is mildly increased in known infarct segments. LV apex is akinetic and thinned and expanded with basilar structures chanel normally. EF 45 to 50%. LV apical thrombus is not identified but substrate for developing is present. There is a bioprosthetic aortic valve. Bioprosthetic leaflets are not well visualized. The gradient is normal for this prosthetic aortic valve. There is trace mitral regurg. There is mild tricuspid regurg. Neurology consult - Possible TIA No significant vascular lesions identified on CT angiography of the head and neck. No acute stroke identified on brain MRI. No significant abnormality on cervical spine MRI, thus making radicular symptoms unlikely. Patient should continue with warfarin and daily low-dose aspirin. However, if she were to have additional similar episodes going forward, would consider potentially switching her 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 to Eliquis in light of her history of atrial fibrillation. Continue with atorvastatin at the current dosage. Her current lipid panel including LDL or appropriate. Patient will need ongoing follow-up with her PCP regarding cardiovascular risk factors, management of hypertension. No further immediate recommendations. 12/06 -I discussed with the patient that INR needs to be closely followed, and therapeutic. She can discuss further with her outpatient providers, if she should be switched to Eliquis. History of CVA with residual expressive aphasia History of CVA in 2004. On aspirin, atorvastatin CAD Continue aspirin, Toprol and Valsartan Paroxysmal atrial fibrillation Continue Metoprolol ER and coumadin. INR 2.4 on admission HTN Continue Amlodipine, and Valsartan Systolic HF S/P aortic valve replacement Recently started on MoWeFr Lasix 20mg, continue Entresto and Metoprolol ER MDD Anxiety Continue Pristiq, and Mirtazapine DVT Ppx: coumadin PCP: Dr. Pa Dispo: Admitted to PCU- plan to [place] home Admission and Anticipated Discharge Date Admission Date: December 05, 2022 Subjective Patient seen in follow-up of strokelike symptoms, left upper extremity numbness, and resolved, possible TIA Currently laying in bed, in no acute distress. She is awake alert oriented, says that she is back to baseline. Overall feels well. No more numbness in left upper extremity. Also denies any fevers chills chest pain shortness of breath, abdominal pain. Seen by neurology today and PT Review of Systems Review of Systems: All systems reviewed & are unremarkable except as noted in Subjective Physical Exam Physical Exam: General: NAD, well developed Cardiac: normal S1/S2 Lungs: CTAB, no wheezing or crackles Abd: ND, soft, NT Neuro: PERRL, EOMI, speech slow but fluent (baseline per pt), moves extremities MSK: no LE edema, moves extremities Psych: AAOx3, normal affect Results & Data Results & Data Vital Signs (Past 12 Hours) Vital Signs Temp Pulse Resp BP Pulse Ox O2 Del Method 12/06/22 11:36 36.8 C 79 19 135/88 96 Room Air 12/06/22 09:17 36.8 C 76 20 158/88 H 93 Room Air 12/06/22 07:54 37.0 C 69 20 129/64 97 Room Air 12/06/22 02:37 36.6 C 76 18 132/78 95 Room Air Laboratory Results 12/06/22 12/06/22 12/06/22 Range/Units 06:46 06:46 06:46 WBC 7.47 (4.8-10.8) K/ul RBC 3.88 L (4.20-5.40) M/uL Hgb 11.9 L (12.0-16.0) g/dl POC Hgb (12.0-16.0) g/dl Hct 35.1 L (37.0-47.0) % POC Hct (37-47) % MCV 90.5 (80.0-100.0) fL MCH 30.7 (25.0-34.0) pg MCHC 33.9 (32.0-36.0) g/dL RDW Std Deviation 57.0 H (36.4-46.3) fL RDW Coeff of Fredy 17.2 H (11.5-14.5) % Plt Count 266 (130-400) K/uL MPV 11.2 (9.4-12.4) fL Immature Gran % (Auto) % Neut % (Auto) % Lymph % (Auto) % [place] % (Auto) % Eos % (Auto) % Baso % (Auto) % Neut # (Auto) (1.40-6.50) K/uL Lymph # (Auto) (1.2-3.4) K/uL [place] # (Auto) (0.11-0.59) K/uL Eos # (Auto) (0-0.50) K/uL Baso # (Auto) (0-0.2) K/uL Immature Gran # (Auto) (0.01-0.20) K/uL PT (9.0-12.0) Seconds POC INR (0.9-1.1) INR (0.9-1.1) APTT (21.0-31.0) Seconds PTT Ratio POC Sodium (135-144) mmol/L Sodium 141 (136-145) mmol/L POC Potassium (3.3-5.0) mmol/L Potassium 3.4 L (3.5-5.1) mmol/L POC Chloride (101-112) mmol/L Chloride 105 (98-107) mmol/L Carbon Dioxide 28 (21-32) mmol/L POC Total CO2 (24-31) mmol/L Anion Gap 8 (3-11) POC Anion Gap (16-25) mmol/L POC BUN (7-18) mg/dl BUN 9 (6-23) mg/dl Creatinine 0.83 (0.6-1.2) mg/dl POC Creatinine (0.6-1.3) mg/dl Est Cr Clr Drug Dosing 70.0 ml/min Est GFR ( Amer) 84.0 ml/min Est GFR (Non-Af Amer) 72.5 ml/min BUN/Creatinine Ratio 10.8 (10-20) Glucose 92 (70-99(Fasting)) mg/dl POC Glucose (other) (70-99) mg/dl Estimat Average Glucose 120 mg/dl Hemoglobin A1c 5.8 H (4.5-5.6) % Calcium 8.4 L (8.6-10.3) mg/dl POC Ioniz Calcium Jolie (1.12-1.32) mmol/l Magnesium (1.7-2.4) mg/dl Total Bilirubin (0.2-1.0) mg/dl AST (13-39) U/L ALT (7-52) U/L Alkaline Phosphatase (34-104) U/L Troponin I High Sens (0-14) pg/ml Total Protein (6.0-8.3) gm/dl Albumin (3.4-5.0) gm/dl Globulin (2.5-4.0) gm/dl Albumin/Globulin Ratio (0.9-2) Triglycerides 89 (0-150) mg/dl Cholesterol 116 (0-200) mg/dl LDL Cholesterol, Calc 51 mg/dl VLDL Cholesterol, Calc 18 (0-30) mg/dl HDL Cholesterol 47 mg/dl Cholesterol/HDL Ratio 2.5 (0-5) Urine Color Urine Appearance (Clear) Urine pH (4.5-7.5) Ur Specific [place] (1.000-1.030) Urine Protein (Negative) Urine Glucose (UA) (Negative) Urine Ketones (Negative) Urine Blood (Negative) Urine Nitrite (Negative) Urine Bilirubin (Negative) Urine Urobilinogen (Negative) Ur Leukocyte Esterase (Negative) Urine WBC (Auto) (0-5) /hpf Urine RBC (Auto) (0-4) /hpf U Hyaline Cast (Auto) (0-5) /lpf U Epithel Cells (Auto) (0-5) /lpf Urine Bacteria (Auto) (Negative) SARS-CoV-2, RNA, NAAT (NEGATIVE) 12/06/22 12/05/22 12/05/22 Range/Units 06:46 15:51 14:56 WBC (4.8-10.8) K/ul RBC (4.20-5.40) M/uL Hgb (12.0-16.0) g/dl POC Hgb (12.0-16.0) g/dl Hct (37.0-47.0) % POC Hct (37-47) % MCV (80.0-100.0) fL MCH (25.0-34.0) pg MCHC (32.0-36.0) g/dL RDW Std Deviation (36.4-46.3) fL RDW Coeff of Fredy (11.5-14.5) % Plt Count (130-400) K/uL MPV (9.4-12.4) fL Immature Gran % (Auto) % Neut % (Auto) % Lymph % (Auto) % [place] % (Auto) % Eos % (Auto) % Baso % (Auto) % Neut # (Auto) (1.40-6.50) K/uL Lymph # (Auto) (1.2-3.4) K/uL [place] # (Auto) (0.11-0.59) K/uL Eos # (Auto) (0-0.50) K/uL Baso # (Auto) (0-0.2) K/uL Immature Gran # (Auto) (0.01-0.20) K/uL PT 18.8 H (9.0-12.0) Seconds POC INR (0.9-1.1) INR 1.8 H (0.9-1.1) APTT (21.0-31.0) Seconds PTT Ratio POC Sodium (135-144) mmol/L Sodium (136-145) mmol/L POC Potassium (3.3-5.0) mmol/L Potassium (3.5-5.1) mmol/L POC Chloride (101-112) mmol/L Chloride (98-107) mmol/L Carbon Dioxide (21-32) mmol/L POC Total CO2 (24-31) mmol/L Anion Gap (3-11) POC Anion Gap (16-25) mmol/L POC BUN (7-18) mg/dl BUN (6-23) mg/dl Creatinine (0.6-1.2) mg/dl POC Creatinine (0.6-1.3) mg/dl Est Cr Clr Drug Dosing ml/min Est GFR ( Amer) ml/min Est GFR (Non-Af Amer) ml/min BUN/Creatinine Ratio (10-20) Glucose (70-99(Fasting)) mg/dl POC Glucose (other) (70-99) mg/dl Estimat Average Glucose mg/dl Hemoglobin A1c (4.5-5.6) % Calcium (8.6-10.3) mg/dl POC Ioniz Calcium Jolie (1.12-1.32) mmol/l Magnesium (1.7-2.4) mg/dl Total Bilirubin (0.2-1.0) mg/dl AST (13-39) U/L ALT (7-52) U/L Alkaline Phosphatase (34-104) U/L Troponin I High Sens (0-14) pg/ml Total Protein (6.0-8.3) gm/dl Albumin (3.4-5.0) gm/dl Globulin (2.5-4.0) gm/dl Albumin/Globulin Ratio (0.9-2) Triglycerides (0-150) mg/dl Cholesterol (0-200) mg/dl LDL Cholesterol, Calc mg/dl VLDL Cholesterol, Calc (0-30) mg/dl HDL Cholesterol mg/dl Cholesterol/HDL Ratio (0-5) Urine Color Yellow Urine Appearance Clear (Clear) Urine pH 6.5 (4.5-7.5) Ur Specific [place] 1.014 (1.000-1.030) Urine Protein Negative (Negative) Urine Glucose (UA) Negative (Negative) Urine Ketones Negative (Negative) Urine Blood Trace H (Negative) Urine Nitrite Negative (Negative) Urine Bilirubin Negative (Negative) Urine Urobilinogen Negative (Negative) Ur Leukocyte Esterase Negative (Negative) Urine WBC (Auto) 0 (0-5) /hpf Urine RBC (Auto) 0-4 (0-4) /hpf U Hyaline Cast (Auto) 0 (0-5) /lpf U Epithel Cells (Auto) 10-20 H (0-5) /lpf Urine Bacteria (Auto) Negative (Negative) SARS-CoV-2, RNA, NAAT NEGATIVE (NEGATIVE) 12/05/22 12/05/22 12/05/22 Range/Units 14:43 14:30 14:30 WBC (4.8-10.8) K/ul RBC (4.20-5.40) M/uL Hgb (12.0-16.0) g/dl POC Hgb 13.3 (12.0-16.0) g/dl Hct (37.0-47.0) % POC Hct 39 (37-47) % MCV (80.0-100.0) fL MCH (25.0-34.0) pg MCHC (32.0-36.0) g/dL RDW Std Deviation (36.4-46.3) fL RDW Coeff of Fredy (11.5-14.5) % Plt Count (130-400) K/uL MPV (9.4-12.4) fL Immature Gran % (Auto) % Neut % (Auto) % Lymph % (Auto) % [place] % (Auto) % Eos % (Auto) % Baso % (Auto) % Neut # (Auto) (1.40-6.50) K/uL Lymph # (Auto) (1.2-3.4) K/uL [place] # (Auto) (0.11-0.59) K/uL Eos # (Auto) (0-0.50) K/uL Baso # (Auto) (0-0.2) K/uL Immature Gran # (Auto) (0.01-0.20) K/uL PT (9.0-12.0) Seconds POC INR 2.9 H (0.9-1.1) INR (0.9-1.1) APTT (21.0-31.0) Seconds PTT Ratio POC Sodium 140 (135-144) mmol/L Sodium 140 (136-145) mmol/L POC Potassium 3.6 (3.3-5.0) mmol/L Potassium 3.7 (3.5-5.1) mmol/L POC Chloride 100 L (101-112) mmol/L Chloride 103 (98-107) mmol/L Carbon Dioxide 30 (21-32) mmol/L POC Total CO2 27 (24-31) mmol/L Anion Gap 7 (3-11) POC Anion Gap 18.0 (16-25) mmol/L POC BUN 7 (7-18) mg/dl BUN 8 (6-23) mg/dl Creatinine 0.79 (0.6-1.2) mg/dl POC Creatinine 0.8 (0.6-1.3) mg/dl Est Cr Clr Drug Dosing 63.9 ml/min Est GFR ( Amer) 89.1 ml/min Est GFR (Non-Af Amer) 76.9 ml/min BUN/Creatinine Ratio 10.1 (10-20) Glucose 112 H (70-99(Fasting)) mg/dl POC Glucose (other) 115 H (70-99) mg/dl Estimat Average Glucose mg/dl Hemoglobin A1c (4.5-5.6) % Calcium 8.8 (8.6-10.3) mg/dl POC Ioniz Calcium Jolie 0.91 L (1.12-1.32) mmol/l Magnesium 1.8 (1.7-2.4) mg/dl Total Bilirubin 0.6 (0.2-1.0) mg/dl AST 20 (13-39) U/L ALT 13 (7-52) U/L Alkaline Phosphatase 127 H (34-104) U/L Troponin I High Sens 8.3 (0-14) pg/ml Total Protein 6.5 (6.0-8.3) gm/dl Albumin 3.7 (3.4-5.0) gm/dl Globulin 2.8 (2.5-4.0) gm/dl Albumin/Globulin Ratio 1.3 (0.9-2) Triglycerides (0-150) mg/dl Cholesterol (0-200) mg/dl LDL Cholesterol, Calc mg/dl VLDL Cholesterol, Calc (0-30) mg/dl HDL Cholesterol mg/dl Cholesterol/HDL Ratio (0-5) Urine Color Urine Appearance (Clear) Urine pH (4.5-7.5) Ur Specific [place] (1.000-1.030) Urine Protein (Negative) Urine Glucose (UA) (Negative) Urine Ketones (Negative) Urine Blood (Negative) Urine Nitrite (Negative) Urine Bilirubin (Negative) Urine Urobilinogen (Negative) Ur Leukocyte Esterase (Negative) Urine WBC (Auto) (0-5) /hpf Urine RBC (Auto) (0-4) /hpf U Hyaline Cast (Auto) (0-5) /lpf U Epithel Cells (Auto) (0-5) /lpf Urine Bacteria (Auto) (Negative) SARS-CoV-2, RNA, NAAT (NEGATIVE) 12/05/22 12/05/22 Range/Units 14:30 14:30 WBC 8.31 (4.8-10.8) K/ul RBC 4.09 L (4.20-5.40) M/uL Hgb 12.4 (12.0-16.0) g/dl POC Hgb (12.0-16.0) g/dl Hct 38.1 (37.0-47.0) % POC Hct (37-47) % MCV 93.2 (80.0-100.0) fL MCH 30.3 (25.0-34.0) pg MCHC 32.5 (32.0-36.0) g/dL RDW Std Deviation 58.7 H (36.4-46.3) fL RDW Coeff of Fredy 17.2 H (11.5-14.5) % Plt Count 308 (130-400) K/uL MPV 10.9 (9.4-12.4) fL Immature Gran % (Auto) 0.2 % Neut % (Auto) 78.8 % Lymph % (Auto) 11.7 % [place] % (Auto) 7.0 % Eos % (Auto) 1.8 % Baso % (Auto) 0.5 % Neut # (Auto) 6.55 H (1.40-6.50) K/uL Lymph # (Auto) 0.97 L (1.2-3.4) K/uL [place] # (Auto) 0.58 (0.11-0.59) K/uL Eos # (Auto) 0.15 (0-0.50) K/uL Baso # (Auto) 0.04 (0-0.2) K/uL Immature Gran # (Auto) 0.02 (0.01-0.20) K/uL PT 25.2 H (9.0-12.0) Seconds POC INR (0.9-1.1) INR 2.4 H (0.9-1.1) APTT 33.1 H (21.0-31.0) Seconds PTT Ratio 1.2 POC Sodium (135-144) mmol/L Sodium (136-145) mmol/L POC Potassium (3.3-5.0) mmol/L Potassium (3.5-5.1) mmol/L POC Chloride (101-112) mmol/L Chloride (98-107) mmol/L Carbon Dioxide (21-32) mmol/L POC Total CO2 (24-31) mmol/L Anion Gap (3-11) POC Anion Gap (16-25) mmol/L POC BUN (7-18) mg/dl BUN (6-23) mg/dl Creatinine (0.6-1.2) mg/dl POC Creatinine (0.6-1.3) mg/dl Est Cr Clr Drug Dosing ml/min Est GFR ( Amer) ml/min Est GFR (Non-Af Amer) ml/min BUN/Creatinine Ratio (10-20) Glucose (70-99(Fasting)) mg/dl POC Glucose (other) (70-99) mg/dl Estimat Average Glucose mg/dl Hemoglobin A1c (4.5-5.6) % Calcium (8.6-10.3) mg/dl POC Ioniz Calcium Jolie (1.12-1.32) mmol/l Magnesium (1.7-2.4) mg/dl Total Bilirubin (0.2-1.0) mg/dl AST (13-39) U/L ALT (7-52) U/L Alkaline Phosphatase (34-104) U/L Troponin I High Sens (0-14) pg/ml Total Protein (6.0-8.3) gm/dl Albumin (3.4-5.0) gm/dl Globulin (2.5-4.0) gm/dl Albumin/Globulin Ratio (0.9-2) Triglycerides (0-150) mg/dl Cholesterol (0-200) mg/dl LDL Cholesterol, Calc mg/dl VLDL Cholesterol, Calc (0-30) mg/dl HDL Cholesterol mg/dl Cholesterol/HDL Ratio (0-5) Urine Color Urine Appearance (Clear) Urine pH (4.5-7.5) Ur Specific [place] (1.000-1.030) Urine Protein (Negative) Urine Glucose (UA) (Negative) Urine Ketones (Negative) Urine Blood (Negative) Urine Nitrite (Negative) Urine Bilirubin (Negative) Urine Urobilinogen (Negative) Ur Leukocyte Esterase (Negative) Urine WBC (Auto) (0-5) /hpf Urine RBC (Auto) (0-4) /hpf U Hyaline Cast (Auto) (0-5) /lpf U Epithel Cells (Auto) (0-5) /lpf Urine Bacteria (Auto) (Negative) SARS-CoV-2, RNA, NAAT (NEGATIVE) Medications Administered Current Inpatient Medications Acetaminophen (Acetaminophen 325 Mg Tab) 650 mg PO Q4H PRN PRN Reason: Pain or Fever Stop: 01/04/23 18:12 Hydrocodone Bitart/Acetaminophen (Hydrocodone/Acetaminophen 7.5/325mg Tab) 1 tab PO Q8H PRN PRN Reason: Pain Stop: 12/19/22 21:46 Amlodipine Besylate (A[facility]odipine Besylate 5 Mg Tab) [facility] [place] Stop: 01/05/23 08:59 Last Admin: 12/06/22 09:18 Dose: 2.5 mg Aspirin (Aspirin 81 Mg Ectab) [facility] [place] Stop: 01/05/23 08:59 Last Admin: 12/06/22 09:18 Dose: 81 mg Atorvastatin Calcium (Atorvastatin 40 Mg Tab) 40 mg PO HS [facility] Stop: 01/04/23 21:49 Last Admin: 12/05/22 22:21 Dose: 40 mg Buspirone HCl (Buspirone 15 Mg Tab) 15 mg PO BID [facility] Stop: 01/04/23 21:59 Last Admin: 12/06/22 09:17 Dose: 15 mg Calcium Carbonate (Calcium Carbonate 1250mg Tab) 1,250 mg PO DAILY [facility] Stop: 01/05/23 08:59 Last Admin: 12/06/22 09:19 Dose: 1,250 mg Famotidine (Famotidine 20 Mg Tab) 20 mg PO MOWEFR@0900 [facility] Stop: 01/05/23 08:59 Last Admin: 12/06/22 09:18 Dose: 20 mg Fluticasone/Vilanterol (Fluticasone/Vilanterol 100/25mcg 14 Puffs/Inhaler) 1 puffs INH QAM PRN PRN Reason: Shortness Of Breath Stop: 01/04/23 21:46 Furosemide (Furosemide 20 Mg Tab) 20 mg PO MoWeFr@0900 [facility] Stop: 01/05/23 08:59 Last Admin: 12/06/22 09:19 Dose: 20 mg Ipratropium [place] (Ipratropium [place] Hfa Inhaler) 2 puffs INH QID PRN PRN Reason: Shortness Of Breath Or Wheezin Stop: 01/04/23 21:46 Metoprolol Succinate (Metoprolol Succ 25mg Ext Rel Tab) 25 mg PO BID [facility] Stop: 01/05/23 08:59 Last Admin: 12/06/22 09:18 Dose: 25 mg Mirtazapine (Mirtazapine Soltab 15 Mg) 45 mg PO HS [facility] Stop: 01/04/23 21:49 Last Admin: 12/05/22 22:21 Dose: 45 mg Miscellaneous (Desvenlafaxine Succinate 100 Mg - Order Awaiting Action) 1 each N/A QS [facility] Stop: 01/05/23 00:00 Last Admin: 12/06/22 09:12 Dose: Not Given Miscellaneous Information (Pharmacist Discharge Med Rec Consult) 1 each N/A UD PRN PRN Reason: Consult Stop: 01/04/23 18:12 Ondansetron HCl (Ondansetron Inj 2 Mg/Ml 2 Ml Vial) 4 mg IV Q6H PRN PRN Reason: Nausea Stop: 01/04/23 18:12 Pantoprazole Sodium (Pantoprazole 40 Mg Tab) 40 mg PO BID [facility] Stop: 01/05/23 08:59 Last Admin: 12/06/22 09:17 Dose: 40 mg Polyethylene Glycol (Polyethylene (Miralax) 17 Gm Pack) 17 gm PO DAILY PRN PRN Reason: Constipation Stop: 01/04/23 18:12 Sacubitril/Valsartan (Valsartan/Sacubitril 103/97mg Tab) 1 tab PO BID [facility] Stop: 01/05/23 08:59 Last Admin: 12/06/22 09:19 Dose: 1 tab Vitamin D (Cholecalciferol 1,000 Units 25 Mcg Tab) 2,000 units PO DAILY [facility] Stop: 01/05/23 08:59 Last Admin: 12/06/22 09:19 Dose: 2,000 units Warfarin Sodium (Warfarin Sod 2.5 Mg Tab) 2.5 mg PO DAILY@1600 [facility] Stop: 01/04/23 21:49 Last Admin: 12/05/22 22:21 Dose: 2.5 mg
[2022-12-06] MEDS ORDERED: STROKE PATIENT DISCHARGE STA (12:38)
--- NOTE | 2022-12-06 12:38 | Discharge Summary ---
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 Has had a stressful week but felt well until this morning after she let her dog out. 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 Has been sleeping in her chair over the past few weeks. Went to the store to pickle pumper prescriptions and developed left hand numbness by the time she returned home from errands around noon. Describes numbness as starting in palmar aspect of L hand and eventually spreading to L shoulder. Also notes feeling unsteady on her feet but did not fall. Denies any neck pain in the past few days. Numbness has resolved but still feels tired. No falls. No fever, chills, lightheadedness, CP, SOB, N/V, abdominal pain, dysuria, diarrhea or constipation. Admission Exam Per Admitting Provider NAD, well developed Cardiac: normal S1/S2 with possible systolic murmur Lungs: CTA, no wheezing or crackles Abd: ND, soft, NT Neuro: PERRLA, EOMI, CN II-XII intact, overall good strength but slight decrease in strength at hip flexion MSK: no LE edema Psych: AAOx3, normal affect Principal Diagnosis Stroke-like symptoms, possible TIA Discharge Exam General: NAD, well developed Cardiac: normal S1/S2 Lungs: CTAB, no wheezing or crackles Abd: ND, soft, NT Neuro: PERRL, EOMI, speech slow but fluent (baseline per pt), moves extremities MSK: no LE edema, moves extremities Psych: AAOx3, normal affect Discharge Data Allergies Allergy/AdvReac Type Severity Reaction Status Date / Time clopidogrel [From Plavix] Allergy Severe SWELLING Verified 12/05/22 15:52 OF FACE/LIPS/TONGUE ticagrelor [From Brilinta] Allergy Severe SWELLING Verified 12/05/22 15:52 OF FACE/LIPS/TONGUE oxycodone Allergy Intermediate EDEMA Verified 12/05/22 15:52 Consultations 12/05/22 15:55 ED Decision to Admit Stat 12/05/22 18:33 Consult Neurology Routine Ordered Studies 12/05/22 14:28 CT angio head w con Stat CT angio neck with con Stat CT head/brain wo con Stat 12/05/22 16:38 MR cervical spine wo/w con Routine 12/05/22 18:13 MR brain wo/w con Routine Hospital Course (1) Stroke-like symptoms: (2) Left arm numbness: (3) Left leg weakness: (4) Poor historian: (5) History of CVA (cerebrovascular accident): (6) Expressive aphasia: (7) CAD (coronary artery disease): (8) H/O heart artery stent: (9) Atrial fibrillation: (10) HTN (hypertension): (11) Anxiety disorder: Plan This is a 66yo F with a PMH of systolic heart failure, 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 Possible TIA LUE numbness LLE weakness Developed earlier today, have since resolved Head CT, CTA head, neck with 1. No acute intracranial hemorrhage, evidence of acute territorial infarction, or other acute intracranial disease process. Old left parietal infarct is noted. 2. No occlusion, hemodynamically significant stenosis, or dissection in the major cervical arteries. 3. No occlusion, hemodynamically significant stenosis, aneurysm, dissection, or arteriovenous malformation in the major intracranial arteries. 4. Patulous esophagus with a small amount of fluid. TNK contraindicated in ED due to INR 2.3 Telestroke neurologist recommending further workup with brain MRI w/wo, echo with bubble study, neuro consult and MRI c spine as poss. etiology Dysphagia screen, ADAT, PT/OT/speech therapy Brain MRI - 1. Stable encephalomalacia left parietal lobe, atrophy and chronic white matter disease. 2. No abnormal enhancement, acute infarct, bleed, or acute intracranial abnormality. Cervical spine MRI- 1. Mild diffuse degenerative change throughout the cervical spine, commensurate with age. 2. No disc herniation, central spinal stenosis, abnormal cord signal or abnormal enhancement. Echo LV is normal in size. LV wall thickness is mildly increased in known infarct segments. LV apex is akinetic and thinned and expanded with basilar structures chanel normally. EF 45 to 50%. LV apical thrombus is not identified but substrate for developing is present. There is a bioprosthetic aortic valve. Bioprosthetic leaflets are not well visualized. The gradient is normal for this prosthetic aortic valve. There is trace mitral regurg. There is mild tricuspid regurg. Neurology consult - Possible TIA No significant vascular lesions identified on CT angiography of the head and neck. No acute stroke identified on brain MRI. No significant abnormality on cervical spine MRI, thus making radicular symptoms unlikely. Patient should continue with warfarin and daily low-dose aspirin. However, if she were to have additional similar episodes going forward, would consider potentially switching her 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 to Eliquis in light of her history of atrial fibrillation. Continue with atorvastatin at the current dosage. Her current lipid panel including LDL or appropriate. Patient will need ongoing follow-up with her PCP regarding cardiovascular risk factors, management of hypertension. No further immediate recommendations. 12/06 -I discussed with the patient that INR needs to be closely followed, and therapeutic. She can discuss further with her outpatient providers, if she should be switched to Eliquis. History of CVA with residual expressive aphasia History of CVA in 2004. On aspirin, atorvastatin CAD Continue aspirin, Toprol and Valsartan Paroxysmal atrial fibrillation Continue Metoprolol ER and coumadin. INR 2.4 on admission HTN Continue Amlodipine, and Valsartan Systolic HF S/P aortic valve replacement Recently started on MoWeFr Lasix 20mg, continue Entresto and Metoprolol ER MDD Anxiety Continue Pristiq, and Mirtazapine Total Time Total Time Spent Total Time Spent (In Minutes): 40 Discharge Plan Discharge Items Patient Disposition: Home - Self-Care Reason For Visit: STROKE EVAL Discharge Diagnosis: Stroke-like symptoms, likely TIA Condition on Discharge: Fair Activity: Per Instructions section Non-emergency contact: Primary Care Provider Call non-emergency contact if: you have any medication questions and your symptoms worsen Follow-up/Referrals: Abdon Pa DO [Primary Care Provider] - (Date & Time 12/11/2022 1:20 PM Provider Pharmacist [address] Date & Time 12/11/2022 1:40 PM Provider Abdon Pa DO [facility] [address] [place] [address] ) Diet: Heart Healthy [facility] Attending Provider Instructions: Follow-up with primary care doctor within 1 week. The appointment was scheduled for you for 12/11/2022. No medication changes were made at this time. However it is important that you to follow-up on your INR/Coumadin dose. May consider to switch to Eliquis. Please discuss this with your primary care physician. Pending Studies at Discharge: No Stand-Alone Forms: My [facility] [place], Smoking Cessation Medications and DC Order Prescriptions: Continued Entresto 97-103 mg tablet 1 tab PO BID warfarin 2.5 mg tablet 2.5 mg PO DAILY@1600 nitroglycerin [Nitrostat] 0.4 mg tablet, sublingual 0.4 mg sublingual Q5M PRN (Reason: Chest Pain) Rx Instructions: do not exceed 3 doses per episode ipratropium bromide 17 mcg/actuation HFA aerosol inhaler 2 puff inhalation QID PRN (Reason: Shortness Of Breath Or Wheezing) amlodipine 2.5 mg Tablet 2.5 mg PO QAM famotidine 20 mg Tablet 20 mg PO MOWEFR@0900 pantoprazole 40 mg Tablet,Delayed Release (Dr/Ec) 40 mg PO BID mirtazapine 45 mg Tablet 45 mg PO HS fluticasone furoate-vilanterol [Breo Ellipta] 100-25 mcg/dose Blister With Device 1 inh INHALATION QAM PRN (Reason: Shortness Of Breath) alendronate 70 mg tablet 70 mg PO WK Rx Instructions: NOT SURE STILL TAKING, NOT FILLED SINCE 03/2022. hydrocodone-acetaminophen 7.5-325 mg tablet 1 tab PO Q8H PRN (Reason: Pain) aspirin 81 mg Tablet,Chewable 81 mg PO QAM metoprolol succinate 25 mg tablet extended release 24 hr 25 mg PO BID atorvastatin 40 mg Tablet 40 mg PO HS ondansetron HCl [Zofran] 4 mg Tablet 4 mg PO Q8H PRN (Reason: NAUSEA/VOMITING) calcium carbonate [Calcium 500] 500 mg calcium (1,250 mg) Tablet 500 mg PO DAILY furosemide 20 mg tablet 20 mg PO 3XWK Rx Instructions: MON, WED, & FRI. desvenlafaxine succinate 100 mg tablet extended release 24 hr 100 mg PO QAM cholecalciferol (vitamin D3) [Vitamin D3] 50 mcg (2,000 unit) Capsule 50 mcg PO DAILY buspirone 30 mg tablet 15 mg PO BID Rx Instructions: PER EXT MED HX. PER GMG 30 MG BID. Discharge Orders: Discharge Order (Routine); Ordered 12/06/22 Ordered By: Jesus Vasquez Admission Data Admit Date/Time: 12/05/22 16:02 Attending Provider: Jesus Vasquez Admit Provider: Stephen Lizarraga Primary Care Provider: Abdon Pa Other Providers: Stephen Lizarraga ; Wong Aguillon Other Interventions: Discharge Summary Assessment (RN) Last Done: 12/06/22 12:22
== END 2022-12-06 14:08 | disposition home or self-care (01) | DRG 69 ==
LOC: ED 14:11 → SUATTDRO 16:02 → 2S 16:02

== ENCOUNTER 2024-11-06 14:15 | Inpatient (IN) ==
[2024-11-06 14:40] LABS: Basophils # (auto) 0.06 K/uL (0.00-0.20); Basophils % (auto) 0.6 %; Eosinophils # (auto) 0.15 K/uL (0.00-0.50); Eosinophils % (auto) 1.4 %; Hematocrit (blood only) 41.8 % (37.0-47.0); Hemoglobin 13.6 g/dl (12.0-16.0); Immature Granulocytes # (auto) 0.03 K/uL (0.01-0.20); Immature Granulocytes % (auto) 0.3 %; Lymphocytes % (auto) 14.9 %; Mean Corpuscular Hemoglobin 29.5 pg (25.0-34.0); Mean Corpuscular Hgb Conc 32.5 g/dL (32.0-36.0); Mean Corpuscular Volume 90.7 fL (80.0-100.0); Mean Platelet Volume 11.2 fL (9.4-12.4); Monocytes # (auto) 0.83 K/uL (0.11-0.59); Monocytes % (auto) 7.7 %; Neutrophils # (auto) 8.06 K/uL (1.40-6.50); Neutrophils % (auto) 75.1 %; Platelet Count 275 K/uL (130-400); RDW Coefficient of Variation 13.4 % (11.5-14.5); RDW Standard Deviation 44.8 fL (36.4-46.3); Red Blood Count 4.61 M/uL (4.20-5.40); White Blood Count 10.73 K/ul (4.8-10.8)
--- NOTE | 2024-11-06 14:43 | XRay Report ---
XR chest 1V portable CLINICAL HISTORY: Chest pain, nonspecific COMPARISON STUDY: 12/26/2021 FINDINGS: Stable cardiac valve repair. Stable moderate cardiomegaly without pulmonary vascular conges tion. No effusion, consolidation, or pneumothorax. IMPRESSION: No acute findings. ACT 112: Negative or not required by law. Electronically signed by: Farhad Bentley M.D. 11/06/2024 2:42 PM
--- NOTE | 2024-11-06 14:52 | Emergency Department Note ---
History of Present Illness General Chief Complaint: Chest Pain Time Seen by Provider: 11/06/24 14:19 History of Present Illness Provider Complaint: chest pain Onset (ago): day(s) 1 Duration: intermittent Onset: during rest Pain Location: substernal Pain Radiation: none Current Pain Intensity: 0 Quality: + heaviness Relieved By: + nitroglycerin and + rest Context: no recent illness, no recent surgery, no recent immobilization, no recent travel, no trauma/injury, no new medications or no history of DVT/PE Associated symptoms: + nausea; no vomiting, no dyspnea, no syncope, no palpitations or no cough Treatments prior to arrival: aspirin and nitroglycerin Patient reports that her last nitroglycerin was at 1315 today. Home Medications Medication Instructions Recorded Confirmed Type nitroglycerin 0.4 mg sublingual 0.4 mg sublingual Q5M PRN Chest 08/26/20 11/06/24 History tablet (Nitrostat) Pain sacubitril 97 mg-valsartan 103 mg 1 tab PO AMHS 08/26/20 11/06/24 History tablet (Entresto) warfarin 2.5 mg tablet 2.5 mg PO QPM 08/26/20 11/06/24 History amlodipine 2.5 mg tablet 2.5 mg PO QAM 09/30/21 11/06/24 History famotidine 20 mg tablet 20 mg PO QPM 09/30/21 11/06/24 History mirtazapine 45 mg tablet 45 mg PO HS 09/30/21 11/06/24 History aspirin 81 mg chewable tablet 81 mg PO QAM 12/26/21 11/06/24 History metoprolol succinate 25 mg 25 mg PO BID 12/26/21 11/06/24 History tablet,extended release 24 hr cholecalciferol (vitamin D3) 50 50 mcg PO DAILY 12/05/22 11/06/24 History mcg (2,000 unit) capsule (Vitamin D3) desvenlafaxine succinate 100 mg 100 mg PO QAM 12/05/22 11/06/24 History tablet,extended release 24 hr ondansetron HCl 4 mg tablet 4 mg PO Q8H PRN NAUSEA/VOMITING 12/05/22 11/06/24 History atorvastatin 80 mg tablet 80 mg PO DAILY 11/06/24 11/06/24 History buspirone 5 mg tablet 5 mg PO BID 11/06/24 11/06/24 History furosemide 20 mg tablet 40 mg PO 3XWK 11/06/24 11/06/24 History hydrocodone 7.5 mg-acetaminophen 1 tab PO Q8H PRN Pain 11/06/24 11/06/24 History 325 mg tablet pantoprazole 40 mg tablet,delayed 40 mg PO BID 11/06/24 11/06/24 History release rosuvastatin 40 mg tablet 40 mg PO QAM 11/06/24 11/06/24 History Allergies Allergy/AdvReac Type Severity Reaction Status Date / Time clopidogrel [From Plavix] Allergy Severe SWELLING Verified 12/05/22 15:52 OF FACE/LIPS/TONGUE ticagrelor [From Brilinta] Allergy Severe SWELLING Verified 12/05/22 15:52 OF FACE/LIPS/TONGUE oxycodone Allergy Intermediate EDEMA Verified 12/05/22 15:52 Past Med/Surg History Problem List (Updated 11/06/24 @ 15:17 by Lorne Hyman MD) Chest pain (Acute) Poor historian poor memory CAD (coronary artery disease) multivessel CAD, s/p multiple stents, CABG x 1, [facility] cardiology Atrial fibrillation paroxysmal Left arm numbness (Acute) Left leg weakness (Acute) Stroke-like symptoms (Acute) History of CVA (cerebrovascular accident) (Acute) Expressive aphasia (Acute) Choledocholithiasis HTN (hypertension) Heart attack 1991 Diffuse myofascial pain syndrome GERD (gastroesophageal reflux disease) Back pain Anxiety disorder History of open heart surgery [place] - Sep 23, 2019 H/O heart artery stent 5 stents (thinks last placed in 2019) CVA (cerebral vascular accident) 2004; embolic per cardio records; residual dysphagia, some expressive/receptive aphasia, improved with speech therapy Medical History Carotid artery stenosis < 50% stenosis History of blood transfusion 2004 History of anesthesia reaction pt has some expressive aphasia r/t previous stroke, had difficult time explaining anesthesia problem. says she had difficulty breathing coming out of anesthesia in past. unable to elaborate beyond that. says occurence x 1 while living in [place]. Osteoporosis Throat fullness reason for EGD GERD (gastroesophageal reflux disease) Depression Anxiety HLD (hyperlipidemia) CHF (congestive heart failure) EF 45-50% grade 2 diastolic dysfunction HTN (hypertension) History of myocardial infarction 1991 COPD (chronic obstructive pulmonary disease) 2L O2 at night and as needed during the day Aphasia, mixed Dysphagia Surgical History Status post laparoscopic cholecystectomy Hx laparoscopic cholecystectomy (12/29/21) Laparoscopic Cholecystectomy (Not Applicable) - Felipe Lew, DO 12/29/2021. Grade 1 view, MAC 3, ETT 7.0 atraumatic x 1. History of wisdom tooth extraction History of tonsillectomy History of cardiac catheterization multiple (believes most recent was in 2019 while living in [place]) History of heart valve replacement aortic valve replacement 09/23/2019 Family History Other Hypertension Social History Smoking Status: Current some day smoker Tobacco Type: Cigarettes packs per day: 0.25; Second Hand Exposure: No; Do You Dip or Chew Tobacco: No; Hx Alcohol Use: No Hx Substance Use: No Preferred Language: Bel[place]an Communication Ability: Effective Visual Impairment: Limited Hearing Ability: Normal Lead Caster Helper Required: No Beliefs That Will Affect Care: None marital status: / Current Living Situation: Alone current occupational status: disabled current occupation: on disability since 2004 Feels Safe at Home: Yes Assistive Devices: None Physical Exam Vital Signs Vital Signs - 24 hr 11/06/24 14:27 11/06/24 14:27 11/06/24 14:27 Temperature 36.5 C Temperature Source Oral Pulse Rate 90 Pulse Rate [Apical] Respiratory Rate 16 14 Respiratory Effort / Characteristics Non-Labored Spontaneous Respiratory Depth Normal Normal Blood Pressure 105/67 Blood Pressure [Right Arm] Blood Pressure Mean 79 Blood Pressure Mean [Right Arm] Pulse Oximetry 88 L 90 Oxygen Delivery Method Nasal Cannula Room Air Nasal Cannula Oxygen Flow Rate 2 2 Sepsis Recent Fever Within 48 Hours No Sepsis New/Unexplained Change in Mental Status No Sepsis Action Taken by Nursing No Action Required Oxygen Flow Rate - Titration Pulse Oximetry Post Tiitration 11/06/24 14:29 11/06/24 14:32 11/06/24 14:35 Temperature Temperature Source Pulse Rate 81 Pulse Rate [Apical] Respiratory Rate Respiratory Effort / Characteristics Respiratory Depth Blood Pressure Blood Pressure [Right Arm] Blood Pressure Mean Blood Pressure Mean [Right Arm] Pulse Oximetry 88 L 96 Oxygen Delivery Method Room Air Nasal Cannula Oxygen Flow Rate 2 Sepsis Recent Fever Within 48 Hours Sepsis New/Unexplained Change in Mental Status Sepsis Action Taken by Nursing Oxygen Flow Rate - Titration 2 Pulse Oximetry Post Tiitration 90 11/06/24 16:00 Temperature Temperature Source Pulse Rate Pulse Rate [Apical] 76 Respiratory Rate 18 Respiratory Effort / Characteristics Respiratory Depth Blood Pressure Blood Pressure [Right Arm] 110/74 Blood Pressure Mean Blood Pressure Mean [Right Arm] 86 Pulse Oximetry 95 Oxygen Delivery Method Nasal Cannula Oxygen Flow Rate 2 Sepsis Recent Fever Within 48 Hours Sepsis New/Unexplained Change in Mental Status Sepsis Action Taken by Nursing Oxygen Flow Rate - Titration Pulse Oximetry Post Tiitration Physical Exam GENERAL: oriented to person, place, and time. appears well-developed and well- nourished. HENT: Exam performed. - Head: Normocephalic and atraumatic. EYES: Conjunctivae and EOM are normal. Right eye exhibits no discharge. Left eye exhibits no discharge. No scleral icterus. NECK: Normal range of motion. Neck supple. No JVD present. CV: Normal rate, regular rhythm, normal heart sounds and intact distal pulses. There is no peripheral edema. Palpable radial pulses bue. PULM/CHEST: Effort normal and breath sounds normal. No respiratory distress. No stridor. no wheezes. no rales. ABD: The abdomen is soft. There is no tenderness. NEURO: Motor and sensation grossly intact. SKIN: Skin is warm and dry. He is not diaphoretic. PSYCH: normal mood and affect. Behavior is normal. Judgment and thought content normal. Course Course 1357: Received a call from EMS. Patient's EKG shows slight minimal ST elevation in leads V4, V5, V6, V3 possibly II and III. Will hold off on calling hardware at this time. 1419: The patient was evaluated in room B3. A complete history and physical exam was performed Cardiac monitoring: An order was placed for continuous cardiac monitoring. The monitor shows a rate of 70 with sinus rhythm interpreted by me On arrival EMS reports that prior to arriving to the hospital after they spoke with me the patient had a run of V. tach. They stated they were unable to capture on the rhythm strip or an EKG. Pads were applied to the patient by EMS. 1427: EKG here shows no STEMI. Patient not reporting any chest pain at this time. Discussed case with Dr. Harvey interventional cardiology. We both agree no need for activation of heart alert at this time. If patient's EKG changes are symptomatically changes we can activate later. No amiodarone at this time as her V. tach has self resolved. 1512: Vital signs stable. Labs and imaging are unremarkable. [facility] Decision Making Laboratory Data Attestation: I reviewed the patient's lab results. 11/06/24 13:53 11/06/24 13:53 Labs: Lab Results 11/06/24 Range/Units 13:53 WBC 10.73 (4.8-10.8) K/ul RBC 4.61 (4.20-5.40) M/uL Hgb 13.6 (12.0-16.0) g/dl Hct 41.8 (37.0-47.0) % MCV 90.7 (80.0-100.0) fL MCH 29.5 (25.0-34.0) pg MCHC 32.5 (32.0-36.0) g/dL RDW Std Deviation 44.8 (36.4-46.3) fL RDW Coeff of Fredy 13.4 (11.5-14.5) % Plt Count 275 (130-400) K/uL MPV 11.2 (9.4-12.4) fL Immature Gran % (Auto) 0.3 % Neut % (Auto) 75.1 % Lymph % (Auto) 14.9 % [place] % (Auto) 7.7 % Eos % (Auto) 1.4 % Baso % (Auto) 0.6 % Neut # (Auto) 8.06 H (1.40-6.50) K/uL Lymph # (Auto) 1.60 (1.20-3.40) K/uL [place] # (Auto) 0.83 H (0.11-0.59) K/uL Eos # (Auto) 0.15 (0.00-0.50) K/uL Baso # (Auto) 0.06 (0.00-0.20) K/uL Immature Gran # (Auto) 0.03 (0.01-0.20) K/uL PT 19.5 H (9.0-12.0) Seconds INR 1.9 H (0.9-1.1) APTT 33 H (21-31) Seconds PTT Ratio 1.2 Sodium 139 (136-145) mmol/L Potassium 3.7 (3.5-5.1) mmol/L Chloride 101 (98-107) mmol/L Carbon Dioxide 32 (21-32) mmol/L Anion Gap 6 (3-11) BUN 8 (6-23) mg/dl Creatinine 1.24 H (0.6-1.2) mg/dl Est Cr Clr Drug Dosing 40.1 ml/min eGFR 46.82 BUN/Creatinine Ratio 6.5 L (10-20) Glucose 139 H (70-99(Fasting)) mg/dl Calcium 9.1 (8.6-10.3) mg/dl Troponin I High Sens 7.2 (0-14) pg/ml Lipase 14 (11-82) U/L Imaging Data Chest x-ray: Attestation: I personally reviewed and interpreted this imaging study as follows: My impression: Chest x-ray negative. Airway clear. No pneumothorax. No consolidation. No cardiomegaly or cephalization.. No free air under the diaphragm. No fractures of the skeletal structures. Radiologist's impression: Chest X-Ray 11/06/24 14:20 XR chest 1V portable CLINICAL HISTORY: Chest pain, nonspecific COMPARISON STUDY: 12/26/2021 FINDINGS: Stable cardiac valve repair. Stable moderate cardiomegaly without pulmonary vascular congestion. No effusion, consolidation, or pneumothorax. IMPRESSION: No acute findings. ACT 112: Negative or not required by law. Electronically signed by: Farhad Bentley M.D. 11/06/2024 2:42 PM ECG Data Attestation: I personally reviewed and interpreted this ECG as follows: Rate (beats per minute): 72 Rhythm: normal sinus Findings: no ST depression, no ST elevation or no prolonged QT MDM Narrative 1357: Received a call from EMS. Patient's EKG shows slight minimal ST elevation in leads V4, V5, V6, V3 possibly II and III. Will hold off on calling hardware at this time. 1419: The patient was evaluated in room B3. A complete history and physical exam was performed Cardiac monitoring: An order was placed for continuous cardiac monitoring. The monitor shows a rate of 70 with sinus rhythm interpreted by me On arrival EMS reports that prior to arriving to the hospital after they spoke with me the patient had a run of V. tach. They stated they were unable to capture on the rhythm strip or an EKG. Pads were applied to the patient by EMS. 1427: EKG here shows no STEMI. Patient not reporting any chest pain at this time. Discussed case with Dr. Harvey interventional cardiology. We both agree no need for activation of heart alert at this time. If patient's EKG changes are symptomatically changes we can activate later. No amiodarone at this time as her V. tach has self resolved. 1512: Vital signs stable. Labs and imaging are unremarkable. Patient [facility] be [facility] to the [facility] hospitalist team. Impression & Plan Chest pain Discharge Plan Visit Data Chief Complaint: Chest Pain ED Provider: Lorne Hyman Discharge Problem: Chest pain Patient Disposition: Being Evaluated by Hospitalist Forms Stand Alone Forms: My [facility] Prescriptions Prescriptions: No Action Entresto 97-103 mg tablet 1 tab PO AMHS warfarin 2.5 mg tablet 2.5 mg PO QPM nitroglycerin [Nitrostat] 0.4 mg tablet, sublingual 0.4 mg sublingual Q5M PRN (Reason: Chest Pain) Rx Instructions: do not exceed 3 doses per episode amlodipine 2.5 mg Tablet 2.5 mg PO QAM famotidine 20 mg Tablet 20 mg PO QPM mirtazapine 45 mg Tablet 45 mg PO HS aspirin 81 mg Tablet,Chewable 81 mg PO QAM metoprolol succinate 25 mg tablet extended release 24 hr 25 mg PO BID ondansetron HCl 4 mg Tablet 4 mg PO Q8H PRN (Reason: NAUSEA/VOMITING) desvenlafaxine succinate 100 mg tablet extended release 24 hr 100 mg PO QAM cholecalciferol (vitamin D3) [Vitamin D3] 50 mcg (2,000 unit) Capsule 50 mcg PO DAILY buspirone 5 mg tablet 5 mg PO BID atorvastatin 80 mg tablet 80 mg PO DAILY hydrocodone-acetaminophen 7.5-325 mg tablet 1 tab PO Q8H PRN (Reason: Pain) pantoprazole 40 mg tablet,delayed release (DR/EC) 40 mg PO BID furosemide 20 mg tablet 40 mg PO 3XWK rosuvastatin 40 mg tablet 40 mg PO QAM Referrals Referrals: Abdon Pa DO [Primary Care Provider] -
[2024-11-06 14:56] LABS: BUN Creatinine Ratio 6.5 (10-20); Calcium 9.1 mg/dl (8.6-10.3); Creatinine Clr Calc Pharmacy 40.1 ml/min; Potassium 3.7 mmol/L (3.5-5.1)
[2024-11-06 15:03] LABS: Troponin I High Sensitivity 7.2 pg/ml (0-14)
[2024-11-06 15:08] LABS: INR 1.9 (0.9-1.1); Partial Thromboplastin Ratio 1.2; Partial Thromboplastin Time 33 Seconds (21-31); Prothrombin Time 19.5 Seconds (9.0-12.0)
--- NOTE | 2024-11-06 15:57 | History & Physical Report ---
Date of Service November 06, 2024 Assessment & Plan (1) Chest pain: (2) CAD (coronary artery disease): (3) History of aortic valve replacement with bioprosthetic valve: (4) Atrial fibrillation: (5) CHF (congestive heart failure): (6) HTN (hypertension): (7) HLD (hyperlipidemia): (8) COPD (chronic obstructive pulmonary disease): (9) Depression: (10) Anxiety disorder: (11) Osteoporosis: (12) GERD (gastroesophageal reflux disease): (13) History of CVA (cerebrovascular accident): (14) Expressive aphasia: (15) Diffuse myofascial pain syndrome: Plan 68 year old female with PMH significant for CAD s/p LAD stent, CABGx1, s/p bioprosthetic AVR, paroxysmal Afib, HFrEF, HTN, HLD, CKDIII, COPD, chronic hypoxemic respiratory failure, depression/anxiety, osteoporosis, GERD, chronic pain who presented to the ED on 11/06 with chest pain Chest pain CAD s/p stent, CABGx1, s/p bioprosthetic AVR Patient with intermittent heavy sternal chest pain x24 hours at rest and exertion EMS reported EKG with ST elevation in V4, V5, V6, V3, possibly II and III and run of V tach Patient hemodynamically stable here EKG here NSR without ST elevation, troponin negative, labs unremarkable, CXR negative Order echocardiogram Order mag, TSH, HgbA1C for further work up of causes of chest pain Monitor electrolytes and replete as necessary PRN nitro Admit to medsurg tele and monitor telemetry Possible Cardiology consult in am Paroxysmal Afib Continue warfarin and metoprolol HFrEF Continue Entresto, furosemide, metoprolol HTN Continue valsartan and amlodipine HLD Continue aspirin and atorvastatin CKDIII BUN 8 and creat 1.24 (baseline per outside records) COPD, chronic hypoxemic respiratory failure Continue oxygen and inhalers Depression/anxiety Continue desvenlafaxine and buspar Osteoporosis Continue calcium and vitamin D Holding alendronate GERD Continue pantoprazole and famotidine Chronic pain Continue hydrocodone-acetaminophen DVT Prophylaxis: on warfarin Code Status: DNR/DNI - As per discussion at bedside with the patient. PCP: Dr Abdon Pa DO Disposition: Med [facility] tele Patient seen in collaboration with Dr Jiménez. Please see addendum. I spent a total of 70 minutes coordinating, documenting and providing care for this patient excluding time spent in the performance of separately billed services or time spent by another provider/QHP. Admission and Anticipated Discharge Date Admission Date: 11/06/2024 History of Present Illness Chief Complaint: Chest pain Primary Care Provider: Abdon Pa DO 68 year old female with PMH significant for CAD s/p LAD stent, CABGx1, s/p bioprosthetic AVR, paroxysmal Afib, HFrEF, HTN, HLD, CKDIII, COPD, chronic hypoxemic respiratory failure, history of left MCA CVA (2004), depression/anxiety, osteoporosis, GERD who presented to the ED on 11/06 with chest pain. She reports that she has been having sternal chest pain that she describes as heaviness like something is sitting on her chest for the last 24 hours. The pain is intermittent and does not radiate. It occurs at rest and with exertion. She took two doses of nitro today which helped. She states she belie radha it was acid reflux related and not cardiac, however, she notes that she just does not feel right. She also felt nauseous but that has since resolved. She denies any change in her baseline SOB. She denies recent illness, fevers, chills, cough, cold symptoms, abdominal pain, edema, calf tenderness. She is taking her medications as prescribed. She notes it has been over a year since she has seen Cardiology. She is here with her sister, whom she lives with. Her sister shared that patient had similar chest pain approximately two weeks ago for which she took three doses of nitro. Her sister was prepared to call an ambulance for the patient when her chest pain resolved. Her sister encouraged her to come to the ED today. Patient reports tobacco use and states that she has been smoking more cigarettes than she should for the last 6 months. She is aware of the risk with her oxygen therapy. She denies alcohol or drug use. She ambulates without any assistive devices. Allergies Allergy/AdvReac Type Severity Reaction Status Date / Time clopidogrel [From Plavix] Allergy Severe SWELLING Verified 12/05/22 15:52 OF FACE/LIPS/TONGUE ticagrelor [From Brilinta] Allergy Severe SWELLING Verified 12/05/22 15:52 OF FACE/LIPS/TONGUE oxycodone Allergy Intermediate EDEMA Verified 12/05/22 15:52 Home Medications Medication Instructions Recorded Confirmed Type nitroglycerin 0.4 mg sublingual 0.4 mg sublingual Q5M PRN Chest 08/26/20 11/06/24 History tablet (Nitrostat) Pain sacubitril 97 mg-valsartan 103 mg 1 tab PO AMHS 08/26/20 11/06/24 History tablet (Entresto) warfarin 2.5 mg tablet 2.5 mg PO QPM 08/26/20 11/06/24 History amlodipine 2.5 mg tablet 2.5 mg PO QAM 09/30/21 11/06/24 History famotidine 20 mg tablet 20 mg PO QPM 09/30/21 11/06/24 History mirtazapine 45 mg tablet 45 mg PO HS 09/30/21 11/06/24 History aspirin 81 mg chewable tablet 81 mg PO QAM 12/26/21 11/06/24 History metoprolol succinate 25 mg 25 mg PO BID 12/26/21 11/06/24 History tablet,extended release 24 hr cholecalciferol (vitamin D3) 50 50 mcg PO DAILY 12/05/22 11/06/24 History mcg (2,000 unit) capsule (Vitamin D3) desvenlafaxine succinate 100 mg 100 mg PO QAM 12/05/22 11/06/24 History tablet,extended release 24 hr ondansetron HCl 4 mg tablet 4 mg PO Q8H PRN NAUSEA/VOMITING 12/05/22 11/06/24 History atorvastatin 80 mg tablet 80 mg PO DAILY 11/06/24 11/06/24 History buspirone 5 mg tablet 5 mg PO BID 11/06/24 11/06/24 History furosemide 20 mg tablet 40 mg PO 3XWK 11/06/24 11/06/24 History hydrocodone 7.5 mg-acetaminophen 1 tab PO Q8H PRN Pain 11/06/24 11/06/24 History 325 mg tablet pantoprazole 40 mg tablet,delayed 40 mg PO BID 11/06/24 11/06/24 History release rosuvastatin 40 mg tablet 40 mg PO QAM 11/06/24 11/06/24 History Past Med/Surg History Problem List (Updated 11/06/24 @ 16:41 by SHABNAM Perea) History of aortic valve replacement with bioprosthetic valve Chest pain (Acute) CAD (coronary artery disease) multivessel CAD, s/p multiple stents, CABG x 1, follows with S cardiology Atrial fibrillation paroxysmal History of CVA (cerebrovascular accident) (Acute) Expressive aphasia (Acute) HTN (hypertension) Diffuse myofascial pain syndrome GERD (gastroesophageal reflux disease) Anxiety disorder Medical History (Updated 11/06/24 @ 16:41 by SHABNAM Perea) Stroke-like symptoms Left leg weakness Left arm numbness Choledocholithiasis Back pain Poor historian poor memory Heart attack 1991 CVA (cerebral vascular accident) 2004; embolic per cardio records; residual dysphagia, some expressive/receptive aphasia, improved with speech therapy Carotid artery stenosis < 50% stenosis History of blood transfusion 2004 History of anesthesia reaction pt has some expressive aphasia r/t previous stroke, had difficult time explaining anesthesia problem. says she had difficulty breathing coming out of anesthesia in past. unable to elaborate beyond that. says occurence x 1 while living in [place]. Osteoporosis Throat fullness reason for EGD GERD (gastroesophageal reflux disease) Depression Anxiety HLD (hyperlipidemia) CHF (congestive heart failure) EF 45-50% grade 2 diastolic dysfunction HTN (hypertension) History of myocardial infarction 1991 COPD (chronic obstructive pulmonary disease) 2L O2 at night and as needed during the day Aphasia, mixed Dysphagia Surgical History (Updated 11/06/24 @ 16:41 by SHABNAM Perea) History of open heart surgery [place] - Sep 23, 2019 H/O heart artery stent 5 stents (thinks last placed in 2019) Status post laparoscopic cholecystectomy Hx laparoscopic cholecystectomy (12/29/21) Laparoscopic Cholecystectomy (Not Applicable) - Felipe Lew, 12/29/2021. Grade 1 view, MAC 3, ETT 7.0 atraumatic x 1. History of wisdom tooth extraction History of tonsillectomy History of cardiac catheterization multiple (believes most recent was in 2019 while living in [place]) History of heart valve replacement aortic valve replacement 09/23/2019 Family History Other Hypertension Social History Smoking Status: Light tobacco smoker Tobacco Type: Cigarettes packs per day: 0.25; Cigarettes Per Day: 5; Second Hand Exposure: No; Do You Dip or Chew Tobacco: No; Hx Alcohol Use: No Hx Substance Use: No Preferred Language: Greenlandic Communication Ability: Effective Visual Impairment: Limited Hearing Ability: Normal Collar Cutter Required: No Beliefs That Will Affect Care: None marital status: / Current Living Situation: Family Current Living Situation Comment: Lives with sister current occupational status: disabled current occupation: on disability since 2004 Other Information That Helps Us Care for You: No Feels Safe at Home: Yes Safety Concerns: Feels Safe At This Time Assistive Devices: Denture - Upper, Denture - Lower, Glasses and Oxygen - at Night Review of Systems Review of Systems: All systems reviewed & are unremarkable except as noted in HPI & below Physical Exam Physical Exam: VITALS: Reviewed and VSS. On 2L NC. GEN: Well-developed, female, NAD. PSYCH: Good Judgment. AOx3. Normal memory, mood, and affect. Expressive aphasia. HEENT: Head NC/AT. Sclera white and conjunctiva pink. Nares without rhinorrhea. Nasal and oral mucosa pink. NECK: Supple, with no masses. CV: RRR, no m/r/g. LUNGS: CTAB, no w/r/c. ABD: Soft, NT/ND, NBS, no masses or organomegaly. SKIN: Warm, well perfused. No skin rashes or abnormal lesions. MSK: No deformities, Normal gait. EXT: No clubbing, cyanosis, or edema. NEURO: Ambulating with no limitations. Normal muscle strength and tone. No focal deficits. Results & Data Results & Data Vital Signs (Past 12 Hours) Vital Signs Temp Pulse Resp BP Pulse Ox O2 Del Method O2 Flow Rate 11/06/24 14:35 81 11/06/24 14:32 96 Nasal Cannula 2 11/06/24 14:29 88 L Room Air 11/06/24 14:27 14 90 Nasal Cannula 2 11/06/24 14:27 36.5 C 90 16 105/67 88 L Room Air 11/06/24 14:27 Nasal Cannula 2 Laboratory Results Short CBC 11/06/24 Range/Units 13:53 WBC 10.73 (4.8-10.8) K/ul Hgb 13.6 (12.0-16.0) g/dl Hct 41.8 (37.0-47.0) % Plt Count 275 (130-400) K/uL BMP 11/06/24 13:53 Sodium 139 Potassium 3.7 Chloride 101 Carbon Dioxide 32 BUN 8 Creatinine 1.24 H Glucose 139 H Calcium 9.1 I have independently reviewed and interpreted patient's admitting labs including CBC, BMP, PTT, PT/INR, troponin. Diagnostic Findings Chest X-Ray 11/06/24 14:20 XR chest 1V portable CLINICAL HISTORY: Chest pain, nonspecific COMPARISON STUDY: 12/26/2021 FINDINGS: Stable cardiac valve repair. Stable moderate cardiomegaly without pulmonary vascular congestion. No effusion, consolidation, or pneumothorax. IMPRESSION: No acute findings. ACT 112: Negative or not required by law. Electronically signed by: Farhad Bentley M.D. 11/06/2024 2:42 PM ECG Additional Comments: I have independently reviewed and interpreted patient's admitting EKG which revealed: NSR at rate of 78bpm with no ST changes Code Status & VTE Plan Code Status DNR/DNI as per my discussion with the patient VTE Prophylaxis Plan VTE Prophylaxis will be ordered: Yes Supervising Physician Co-Signing Physician Notes Patient seen and examined at bedside. Patient laying comfortably in room, chest pain resolved at this time. Reported vtach via EMS and potential ST elevations in anterior leads on route, that resolved by time of ED visit. On exam, RRR, no pitting edema, JVP at base. Concern for worsening heart failure (given vtach) and worsening coronary disease, appears less likely acute given troponins. Plan is for troponin trend x2, echocardiogram, ECG in morning, cardiology consult for consideration of stress testing if needed based on prior. I have seen and discussed the case with the collaborating advanced practitioner. I agree with the above H&P. I have reviewed and confirmed the patients medical history, the findings on physical examination, and the patients diagnosis and treatment plan with Madeleine HAQUE and agree with the information documented. I spent a total of 20 minutes coordinating, documenting, and providing care for this patient excluding time spent in the performance of separately billed services. All of the aforementioned completed outside of collaborating with the assigned advanced practitioner for a full treatment plan. I have reviewed the advanced practitioner's documentation, and I agree with, and take responsibility for the plan of care
[2024-11-06 17:07] LABS: Estimated Average Glucose 126 mg/dl
[2024-11-06] MEDS ORDERED: NITROGLYCERIN SL 0.4 MG/TAB TAB SL PRN (17:07)
[2024-11-06] MEDS ORDERED: POLYETHYLENE (MIRALAX) 17 GM PACK PO PRN (17:07)
[2024-11-06] MEDS ORDERED: ACETAMINOPHEN 325 MG TAB PO PRN (17:07)
[2024-11-06] MEDS ORDERED: ONDANSETRON 4 MG OD TAB PO PRN (17:14)
[2024-11-06 17:17] LABS: Magnesium 1.5 mg/dl (1.7-2.4)
[2024-11-06 17:33] LABS: Thyroid Stimulating Hormone 2.351 uIu/ml (0.300-4.500)
[2024-11-06] MEDS: WARFARIN SOD 2.5 MG TAB PO SCH (19:08)
[2024-11-06] MEDS: FAMOTIDINE 20 MG TAB PO SCH (21:35)
[2024-11-06] MEDS: busPIRone 5 MG TAB PO SCH (21:35)
[2024-11-06] MEDS: PANTOprazole 40 MG TAB PO SCH (21:36)
[2024-11-06] MEDS: VALSARTAN/SACUBITRIL 103/97MG TAB PO SCH (21:36)
[2024-11-06] MEDS: METOPROLOL SUCC 25MG EXT REL TAB PO SCH (21:36)
[2024-11-06] MEDS: MIRTAZAPINE SOLTAB 15 MG PO SCH (21:36)
[2024-11-06] MEDS: HEPARIN SOD 5,000 UNIT/0.5 ML VIAL SQ SCH (21:37)
--- OUTSIDE RECORDS SUMMARY | 2024-11-07 07:11 | External Medical Summary | Summary of Care ---
Author Name Unknown Organization [facility] Address [address] [place] [address] Phone [phone] Care Team Providers Care Religious Healer Name Role Phone Abdon Pa DO Primary Care Provider [phone] Encounter Details Date Type Department Care Team (Late st Contact Info) Description 10/27/2024 1:30 PM EDT Nurse Only Family Practice [address] [phone] College, Nurse [facility] Prac [address] [phone] Allergies Active Allergy Reactions Criticality Noted Date Comments Clopidogrel Edema face/lips/tongue High 06/03/2020 Other Reaction(s): SWELLING OF FACE/LIPS/TONGUE Oxycodone Edema Other High 12/05/2022 Percodan 11/23/2000 edema Ticagrelor Edema face/lips/tongue High 07/28/2020 Other Reaction(s): SWELLING OF FACE/LIPS/TONGUE documented as of this encounter (statuses as of 10/28/2024) Medications Aspirin 81 MG Oral Tablet ChewableIndicatio ns:Coronary artery disease involving [place] heart without angina pectoris, unspecified vessel or lesion type Take 1 Tablet by mouth daily. with food. 100 Tablet 5 07/12/20 21 Active Vitamin D3 50 MCG (1999) Oral Capsule Take 1 Capsule by mouth in the morning. 30 Capsule 5 01/13/20 22 Active Calcium 500 MG Oral Tablet Take 1 Tablet by mouth in the morning. With food.. 100 Tablet 11 01/13/20 22 Active oxygen IN GASIndications:He art failure, systolic, due to CAD ([facility]),SOB (shortness of breath),COPD, group B, by GOLD 2017 classification ([facility]),Chronic respiratory failure with hypoxia ([facility]) Portable unit thru [employer]. 2 LPM continuous. 1 Each 05/14/20 23 Active Additional Information Patient taking differently: Portable unit thru [employer].4 LPM continuous., Reported on 11/22/2023 Ventolin HFA 108 (90 Base) MCG/ACT Inhalation Aerosol SolutionIndicatio ns:Asthma with COPD (chronic obstructive pulmonary disease) ([facility]) Inhale 2 Puffs by mouth every 4 hours as needed for Cough, Wheezing or Shortness of Breath. 54 g 3 3 4:06 PM EDT 05/15/20 23 Active Alendronate Sodium 70 MG Oral Tablet (Fosamax)Indicati ons:Age-related osteoporosis without current pathological fracture TAKE 1 TABLET BY MOUTH ONCE A WEEK WITH 8 OZ OF WATER, AT LEAST 30 MINUTES BEFORE FIRST MEAL OF THE DAY. DO NOT LIE DOWN FOR 30 MINUTES AFTER TAKING 15 Tablet 3 5 7:18 AM EST 09/27/19 24 025 Active hydrOXYzine HCl 25 MG Oral Tablet Take 1 Tablet by mouth 3 times a day as needed for Itching. 180 Tablet 2 4 12:55 PM EST 02/11/20 24 Active Mirtazapine 45 MG Oral Tablet (Remeron)Indicati ons:Anxiety state,Moderate episode of recurrent major depressive disorder ([facility]) Take 1 Tablet by mouth at bedtime 100 Tablet 3 5 5:23 PM EST 02/21/20 24 Active busPIRone HCl 5 MG Oral Tablet (Buspar) take one tablet by mouth in the morning and one tablet before bedtime 200 Tablet 3 5 9:11 AM EST 03/05/20 24 Active Famotidine 20 MG Oral Tablet (Pepcid)Indicatio ns:Gastroesophage al reflux disease without esophagitis TAKE ONE TABLET BY MOUTH EVERY MORNING 100 Tablet 3 5 7:33 AM EDT 04/02/20 24 025 Active Desvenlafaxine Succinate ER 100 MG Oral Tablet Extended Release 24 Hour (Pristiq)Indicati ons:Moderate episode of recurrent major depressive disorder (HCC) Take 1 Tablet by mouth in the morning. 90 Tablet 1 4 9:26 AM EST 04/28/20 24 Active Pantoprazole Sodium 40 MG Oral Tablet Delayed Release (Protonix)Indicat ions:Gastroesopha geal reflux disease without esophagitis TAKE ONE TABLET BY MOUTH TWICE A DAY in the MORNING AND BEDTIME 200 Tablet 3 5 7:58 AM EST 05/17/20 24 Active amLODIPine Besylate 2.5 MG Oral Tablet (Norvasc)Indicati ons:HTN, goal below 130/80 Take 1 Tablet by mouth daily. 100 Tablet 3 5 4:55 PM EST 05/23/20 24 Active Warfarin Sodium 2.5 MG Oral Tablet (Coumadin)Indicat ions:History of artificial heart valve Take 1 Tablet by mouth every evening. OR DIRECTED BY ANTICOAGULATION PHARMACIST 100 Tablet 1 5 9:22 AM EST 06/13/20 24 Active Entresto 97-103 MG Oral Tablet (sacubitril-valsa rtan 97-103 mg per tab)Indications:C oronary artery disease involving [place] heart without angina pectoris, unspecified vessel or lesion type Take 1 Tablet by mouth in the morning and 1 Tablet before bedtime. 180 Tablet 3 5 3:16 PM EST 06/23/20 24 Active Ondansetron HCl 4 MG Oral Tablet (Zofran)Indicatio ns:Nausea TAKE ONE TABLET BY MOUTH EVERY 8 HOURS NEEDED FOR NAUSEA 30 Tablet 4 1:50 PM EST 06/30/20 24 Active Metoprolol Succinate ER 25 MG Oral Tablet Extended Release 24 Hour (toPROL XL)Indications:Pa roxysmal atrial fibrillation (HCC) TAKE ONE TABLET BY MOUTH TWICE A DAY 180 Tablet 5 1:22 PM EST 08/19/19 25 Active Nitroglycerin 0.4 MG Sublingual Tablet Sublingual (Nitrostat)Indica tions:Coronary atherosclerosis,S /P angioplasty with stent Place one tab under tongue every 5 min up to three times as needed for chest pain, max of 3 doses 25 Tablet 1 5 3:27 PM EST 08/25/19 25 Active Furosemide 20 MG Oral Tablet (Lasix)Indication s:Heart failure, systolic, due to CAD (HCC) Take 1 Tablet by mouth once a day on Sunday, Sunday, and Sunday only. 30 Tablet 5 09/10/19 25 Active HYDROcodone-Aceta minophen 7.5-325 MG Oral TabletIndications :Lumbar degenerative disc disease Take 1 Tablet by mouth every 8 hours as needed for Pain, Severe. 90 Tablet 10/16/19 25 Active Atorvastatin Calcium 40 MG Oral Tablet (Lipitor) Take 2 Tablets by mouth in the morning. 200 Tablet 3 10/28/19 25 Active Hospital, Clinic, or Other Facility Administered Medication Ordered Dose Route Frequency Start Date End Date Status vitamin b-12 (Cyanocobalamin) inj 1,000 mcgIndications:Vitamin B 12 deficiency 1000 mcg IM [id number] 04/01/2024 03/03/2025 Active documented as of this encounter (statuses as of 10/28/2024) Active Problems Problem Noted Date Diagnosed Date Chronic kidney disease, stage 3a 08/20/2024 Chronic hypoxemic respiratory failure 08/27/2023 Right upper lobe pulmonary nodule 05/17/2023 B12 deficiency 05/01/2023 History of tobacco use 10/23/2022 Heart failure, systolic, due to CAD 08/19/2021 Overview (09/04/2022): EF 09/04 53% Heart Failure "RED FLAG" HF Symptoms: o NO IDENTIFIED SYMPTOMS Current Heart Failure Classifications: o With less than ordinary activity ([employer] CLASS III) Medication Regimen: o Beta Patti Therapy: Metoprolol Succinate (ER) o MACK Inhibitor/ARB Therapy: Entresto o Diuretic therapy: Lasix o Diuretic Titration Protocol in place: No. Follows with cards Gastroesophageal reflux disease without esophagi tis 06/17/2021 Assessment & Plan (09/04/2022 8:52 PM EST): Sx managed with pantoprazole COPD, group B, by GOLD 2017 classification 10/18 Overview: Per COPD GOLD Classification Assessment & Plan (06/30/2023 8:30 PM EST): "RED FLAG" COPD symptoms: Increased dyspnea on exertion ("I can't walk to the kitchen or up the stairs without coughing and wheezing", "My chest feels tight any time I move") Change in mucous ("My normal mucous is clear but this is yellow and tastes terrible") Wheezing ("You can hear the whistling across the room") Medication Regimen Class D, Asthma/COPD Overlap - Inhaled Glucocorticoid-LABA Combination Inhaler Self-Management plan Other/Additional Comments: will contact [facility] Exacerbation plan Chest Xray Assessment & Plan (09/04/2022 8:51 PM EST): No recent exacerbations COPD "RED FLAG" COPD symptoms: o NO IDENTIFIED SYMPTOMS Medication Regimen o Class B, C, D - LAMA Exacerbation Mgt: o No exacerbations in the past 3 months o Rescue Kit in place in Medication List: No. o Used rescue kit in the past month: No o Required IM or IV steroids (Solumedrol) since last visit: No Paroxysmal atrial fibrillation 09/16/2020 Assessment & Plan (09/04/2022 8:50 PM EST): Regular today S/P CABG x 1 07/28/2020 S/P aortic valve replacement 07/28/2020 Hypertension with goal blood pressure less than 140/80 05/17/2020 Anxiety state 05/17/2020 Cerebrovascular disease, arteriosclerotic, post- stroke 01/02/2011 Assessment & Plan (09/04/2022 8:46 PM EST): Stable -continue warfarin, lipitor, ASA, allergic to plavix DYSLIPIDEMIA, GOAL LDL BELOW 70 07/28/2009 Overview (07/28/2009): Per Lipid Taxonomy. Assessment & Plan (09/04/2022 8:52 PM EST): Continue statin MEDICATION USE AGREEMENT 05/10/2009 Overview (12/30/2010): Sees Carmen Mccormick in [place] for her pain meds - under contract w/ them since 11/2010 - pls do not refill any pain meds through PCP office. Other chronic pain 05/10/2009 Overview (12/30/2010): Chronic CHILDRESS and joint pains since CVA Sees Carmen Mccormick in [place] for her pain meds - under contract w/ them since 11/2010 - pls do not refill any pain meds through PCP office. OLD MYOCARDIAL INFARCT 03/04/2009 Overview (03/04/2009): Modified by Acute [place] Protocol #5. 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 current use of 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 0 05/02/2006 Overview (05/14/2017): ICD-10 update of inactive term Anticoagulation management encounter 05/02/2006 Coronary artery disease invo lving [place] heart without angina pectoris Moderate episode of recurrent major depressive d isorder Overview (06/05/2017): ICD-10 update of inactive term 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 Overview (12/30/2010): slow speech at abseline, also confusion in MyG emails Osteoporosis documented as of this encounter (statuses as of 10/28/2024) Resolved Problems Problem Noted Date Diagnosed Date Resolved Date Food insecurity 05/21/2023 09/27/2023 Overview: Per [facility] Protocol Chronic kidney disease, stage 3a 04/23/2023 10/30/2023 Overview: Per CKD protocol Adjustment disorder with mix ed anxiety and depressed mood 05/16/2022 12/25/2022 Assessment & Plan (09/04/2022 8:53 PM EST): Depressed but no SI/HI -psych following -continue remeron, prozac, wellubtrin Food insecurity 07/25/2021 04/27/2022 Overview: Per [facility] Protocol Food insecurity 03/21/2021 06/23/2021 Overview: Per [facility] Protocol Heart failure 07/28/2020 08/19/2021 Major depressive disorder, r ecurrent, unspecified 05/17/2020 07/28/2020 History of artificial heart valve 05/17/2020 07/28/2020 COPD, moderate 05/17/2020 10/21/2020 Overview: Per COPD GOLD Classification Screening for cardiovascular condition 05/17/2020 07/28/2020 ANGIOEDEMA 11/22/2009 06/26/2023 Other specified urticaria 09/30/2009 Overview (09/30/2009): began August, Cerebrovascular disease, art eriosclerotic, post-stroke 11/24/2008 12/29/2010 Overview (11/26/2008): Modified per CVA protocol #8 Other nonspecific abnormal c ardiovascular system function study 09/21/2008 07/28/2020 EXAMINATION OF PARTICIPANT I N CLINICAL TRIAL- genomics 09/21/2008 11/26/2009 Overview (11/26/2009): Renamed Per Clinical Trials Billing Project. Study Titile: Genomics Markers for Patients with Cardiovascular Disease Project # [id number] PI: Magdalena Carbone MD Please call [phone] with study related questions GENOMICS CARDIO RESEARCH OTHER*[id number] 09/21/2008 09/19/2016 Overview (11/26/2009): Renamed Per Clinical Trials Billing Project. Study Titile: Genomics Markers for Patients with Cardiovascular Disease Project # [id number] PI: Magdalena Carbone MD Please call [phone] with study related questions CVA 05/02/2006 11/26/2008 Overview (11/26/2008): Modified per CVA protocol #8 ADVANCE DIRECTIVE INFORMATION 12/13/2004 06/16/2024 Overview (12/13/2004): Brochure given to pt. Acute [place] 03/04/2009 Overview (03/04/2009): Modified by Acute [place] Protocol #5. PURE HYPERCHOLESTEROLEM 07/13 Overview (07/28/2009): Per Lipid Taxonomy. Need for prophylactic hormon e replacement therapy (postmenopausal) 07/28/2020 documented as of this encounter (statuses as of 10/28/2024) Immunizations Name Administration Dates Next Due COVID-19 mRNA, LNP-s, No Pre serve, 2-Dose Series (Similar Pages) 06/20/2021,10/06/2020,09/15/2020 COVID-19, LNP-s, No Preserve , Sadi-sucrose, Ages 12+ (Pfizer) 12/20/2021 COVID-19, MRNA-LNP, PF, 30 M CG/0.3 mL, 12 YRS AND ABOVE, IM (Kneebone-Comirnat) 06/24/2024,06/14/2023 Covid-19, Mrna, Lnp-s, Pf, B ivalent, 30 Mcg, IM, 12 yrs and above (Similar Pages) 06/06/2022 Pneumococcal Conjugate Vacc, 13 Valent (Prevnar) 05/10/2020,04/22/2019 Pneumococcal Polysaccharide PPV23 (Pneumovax) 10/19/2021,11/14/2010,11/27/2005 RSV Vac., Recomb, Adjuvant, PF,0.5 Ml (Arexvy) 07/18/2024 Season Influenza, Quad, PF, Adjuvanted, 65+ Yrs, IM (FLUAD) 05/10/2020 Seasonal Influenza Vac., MDV , IM, 0.5 mL (Fluzone) 05/10/2011,05/23/2010,04/27/2009,05/19,05/30/2006 Seasonal Influenza Virus Vac cine, Unspecified Formulation 05/10/2011,05/23/2010,04/27/2009,05/19,05/30/2006,05/29/2005 Seasonal Influenza, High Dos e, Trivalent, PF, IM (Fluzone HD) 04/30/2024 Seasonal Influenza, Quadriva lent Hd (Fluzone Hd) 04/19/2023,05/16/2022 Seasonal Influenza, Trivalen t, Adjuvanted, 65+ YRS, PF, (Fluad) 04/26/2021,04/22/2019 TDAP (age 10 and older)(Boostrix) 01/10/2022 TDAP, Age 7 and older, IM (Adacel) 10/15/2007 Zoster Vaccine Recombinant (Shingrix) 01/10/2022 ,10/19/2021 documented as of this encounter Social History Tobacco Use Types Packs/Day Years Used Date Smoking Tobacco: Every Day Cigarettes 1 41 Started: 05/13/1980; Last attempted to quit: 05/13/2021 Passive Smoke Exposure: Current Smokeless Tobacco: Never Alcohol Use Standard Drinks/Week Comments Not Currently 0 (1 standard drink = 0.6 oz pur e alcohol) AUDIT-C Answer Date Recorded Q1: How often do you have a drink containing alc ohol? Monthly or less 07/28/2020 Q2: How many drinks containi ng alcohol do you have on a typical day when you are drinking? 1 or 2 07/28/2020 Q3: How often do you have si x or more drinks on one occasion? Never 07/28/2020 PHQ-2 Answer Date Recorded PHQ Adult Total Score 13 11/13/2023 Hunger Vital Sign Answer Date Recorded Within the past 12 months, y ou worried that your food would run out before you got the money to buy more. Never true 08/27/19 24 Within the past 12 months, t he food you bought just didn't last and you didn't have money to get more. Never true 08/27/2023 Childcare Answer Date Recorded Do you feel overwhelmed with taking care of a child, family member or friend? No 08/27/2023 Does your family need help f inding childcare? (Household - for ages 0-17 years) Not on file 08/27/2023 Clothing Answer Date Recorded Have you been unable to get clothing when it was really needed? No 08/27/2023 Is your family able to get c lothes or diapers when needed? (Household - for ages 0-17 years) Not on file 08/27/2023 Personal Safety Answer Date Recorded Do you feel unsafe or have concerns for your saf ety? No 08/27/2023 Do you have concerns for you r family's safety? (Household - for ages 0-17 years) Not on file 08/27/2023 Utilities Answer Date Recorded Do you have trouble paying y our heating, water, or electric bill? No 08/27/2023 Is your family able to pay t he heat, water, or electric bill? (Household - for ages 0-17 years) Not on file 08/27/2023 Does your family have access to good internet? (Household - for ages 0-17 years) Not on file 08/27/2023 Employment Status Answer Date Recorded Are you unemployed or without regular income? No 08/27/2023 Does the household have a re gular source of income? (Household - for ages 0-17 years) Not on file 08/27/2023 Social Connections Answer Date Recorded How often do you feel lonely or isolated from th ose around you? Never 08/27/2023 Financial Resource Strain Answer Date R ecorded Do you have any trouble payi ng for your medications, or do you think you might in the future? No 08/27/2023 Does your family have troubl e paying for medicine? (Household - for ages 0-17 years) Not on file 08/27/2023 Transportation Needs Answer Date Record ed READ ONLY Do you have troubl e getting a ride to medical visits or work? Never True 08/27/2023 Does your family have a hard time getting a ride to doctors visits? (Household - for ages 0-17 years) Not on file 08/27/2023 Has lack of transportation k ept you from medical appointments, meetings, work, or from getting things needed for daily living? Check all that apply. (Adult - for ages 18 years and over) Not on file 08/27/2023 Do you (or your family) have trouble finding or paying for a ride (transportation)? (Household - for ages 0-17 years) Not on file 08/27/2023 Housing Stability Answer Date Recorded Do you currently live in a s helter or have no steady place to sleep at night? No 08/27/2023 READ ONLY Do you think you a re at risk of becoming homeless? No 08/27/2023 Does your family worry about paying for your home or becoming homeless? (Household - for ages 0-17 years) Not on file 0 08/27/2023 Are you homeless or worried that you might be in the future? (Adult - for ages 18 years and over) Not on file Are you (or your family) jany eless or worried that you might be in the future? (Household - for ages 0-17 years) Not on file Food Insecurity Answer Date Recorded Do you need food for this week? No 08/27/2023 Are you able to get enough f ood for your family? (Household - for ages 0-17 years) Not on file 08/27/2023 Does your family need food t his week? (Household - for ages 0-17 years) Not on file 08/27/2023 Do you always have enough fo od for your family? (Household - for ages 0-17 years) Not on file 08/27/2023 Comments No Sex and Gender Information Value Date Recorded Sex Assigned at Female 05/17/2021 1:50 PM EDT Legal Sex Female 7:08 AM EST Gender Identity Female 05/17/2021 1:50 PM EDT Sexual Orientation Straight 05/17/2021 1: 50 PM EDT Occupation Industry Job Start Date Job End Date Not on file Not on file Not on file Not on file documented as of this encounter Progress Notes * Becki Mora LPN - 10/27/2024 5:00 PM EDT Pre-Administration Time Out Procedure Performed: Yes Patient Identified (Ask Name/Date of ): Yes Does the patient have a fever greater than 101 degrees today? No Patient allergic to latex? No Has the patient ever fainted after receiving an injection? No VFC Stock: No Injection(s) verified: Yes, Injection Name: vitamin b 12 Verified Side and Site: Yes Verified Shot(s) with Parent(s)/Patient: Yes documented in this encounter Plan of Treatment Upcoming Encounters Date Type Department Care Team (Late st Contact Info) Description 11/24/2024 1:20 PM EDT [facility] [address] [place] [phone] College, Pharmacist 65 [facility] [address] [facility] [place] [address] 11/24/2024 1:30 PM EDT Nurse Only Family Practice 65 [facility] [address] [facility] [place] [phone] College, Nurse Fam Prac 65 [facility] [address] [facility] [place] [address] 12/18/2024 10:00 AM EDT Office Visit Family Practice 65 [facility] [address] [facility] [phone] Abdon Pa, DO [address] [facility] [place] [address] 03/10/2025 3:00 PM EDT Office Visit Cardiology, [facility] [address] [place] [address] [place], [place] [address] [place] [phone] Health Maintenance Due Date Last Done Comments DISCUSS TOBACCO CESSATION (REFER TO SMARTSET #4317) 1953 Fecal Occult Blood Test 1998 Sigmoidoscopy 1998 Colonoscopy 12/27/2020 12/27/2010 Adult Wellness Visit 07/14/2023 07/14/2022, 03/01/20 21 Cologuard 08/29/2024 08/29/2021, 10/2021, 08/15/2021 Colorectal Cancer Screening 08/29/2024 Depression Monitoring 11/12/2024 11/13/2023 GFR 02/17/2025 08/20/2024, 10/11, 09/06/2023, Additional history exists Albumin/Creatinine Ratio 08/19/2025 025, 10/31/2023, 05/17/2022 CKD HGB USE SMARTSET 16771 08/20/202508/20, 08/20/2024, 10/30/2023, Additional history exists CKD PHOS USE SMARTSET 93644 08/20/2025 08/20/2024, 0 10/27/2004 O2 ASSESSMENT COMPLETED IN PAST YEAR FOR COPD 08/20/2025 08/20/2024 Mammogram 10/21/2025 10/21/2024, 08/13, 08/16/2021, Additional history exists DXA Scan 02/04/2026 02/05/2024, 01/12, 12/20/2021, Additional history exists DTap/Tdap Vaccines (3 - Td or Tdap) 01/11/2032 01/10/2022, 10/15/2007 Alpha-1 Antitrypsin Completed 08/19/2021 Pneumococcal Vaccine: 50+ Years Completed 10/19/2021, 05/10/2020, 04/22/2019, Additional history exists Zoster Vaccines Completed 01/10/2022, 10/19/2021 Lung Cancer Screening Completed 11/12/2023, 023 Influenza Vaccine (FLU shot) Completed 04/30/2024, 04/19/2023, 05/16/2022, Additional history exists COVID-19 Vaccine Discontinued 06/24/2024, 09/2022, 06/06/2022, Additional history exists VITAMIN D LEVEL ONCE IN A LIFETIME-USE SMARTSET# [id number] Completed 08/20/2024, 10/30/2023, 04/13/2022, Additional history exists HPV (Gardasil) Vaccine Aged Out No lo nger eligible based on patient's age to complete this topic Hepatitis B Vaccine Aged Out No longe r eligible based on patient's age to complete this topic MENINGOCOCCAL (MENACTRA/MENVEO) Aged Out No longer eligible based on patient's age to complete this topic Meningitis B Vaccine (Bexsero/Trumemba) Aged Out No longer eligible based on patient's age to complete this topic documented as of this encounter Medical Devices Not on filedocumented as of this encounter Visit Diagnoses Diagnosis Advanced care planning/counseling discussion- Primary Other specified counseling COPD, group B, by GOLD 2017 classification (HCC) Age-related osteoporosis without current pathological fracture Senile osteoporosis Cerebrovascular disease, arteriosclerotic, post-stroke Cerebral atherosclerosis Chronic systolic heart failure (HCC) Chronic systolic heart failure Coronary artery disease involving [place] coronary artery of [place] heart without angina pectoris Old myocardial infarct Old myocardial infarction Paroxysmal atrial fibrillation (HCC) Atrial fibrillation Dyslipidemia, goal LDL below 70 Other and unspecified hyperlipidemia Gastroesophageal reflux disease without esophagitis Esophageal reflux Adjustment disorder with mixed anxiety and depressed mood 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 current use of 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 S/P angioplasty with stent Postsurgical percutaneous transluminal coronary angioplasty status S/P aortic valve replacement Heart valve replaced by other means 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 Speech and language deficit, unspecified, late effect of cerebrovascular disease COPD, group B, by GOLD 2017 classification ([facility])- Primary Heart failure, systolic, due to CAD ([facility]) Unspecified systolic heart failure Paroxysmal atrial fibrillation (HCC) Atrial fibrillation Cerebrovascular disease, arteriosclerotic, post-stroke Cerebral atherosclerosis Advanced care planning/counseling discussion Other specified counseling Vitamin B 12 deficiency [E53.8]- Primary Other B-complex deficiencies documented in this encounter Administered Medications Active Administered Medications - up to 3 most recent administrations Medication Order MAR Action Action Date Dose Rate Site vitamin b-12 (Cyanocobalamin) inj 1,000 mcg 1,000 mcg, Intramuscular, [id number], First dose on Sun04/01/24 at 1345, Last dose on Sun02/03/25 at 1345, For 12 dosesIndications:Vitamin B 12 deficiency Given 10/27/2024 1:39 PM EDT 1,000 mcg Arm Left Upper Given 09/23/2024 10:21 AM EST 1,000 mcg D eltoid Left Upper Given 07/18/2024 1:18 PM EST 1,000 mcg Ar m Left Upper documented in this encounter Advance Directives Documents on File Type Date Recorded Patient Furnace Hand Expl anation Advance Directives and Living Will 06/17/2021 ADVANCE DIRECTIVE / LIVING WILL Power of Slope Runner 06/17/2021 POWER OF A TTORNEY * Full Code (Latest Code Status on File) Date Activated Date Inactivated Comments 09/21/2008 9:29 AM 09/22/2008 3:05 PM Healthcare Agents on File Name Relationship Healthcare Agent Relationship Communication Fanny Fernandez Other - (no specific identity) Health Care Agent (per Health Care Power of Slope Runner document) Care Teams Religious Healer Relationship Specialty Start Date End Date Abdon Pa DO [address] [facility] [place] [address] PCP - General Internal Medicine 01/24/24 documented as of this encounter
--- OUTSIDE RECORDS SUMMARY | 2024-11-07 07:12 | External Medical Summary | Summary of Care ---
Author Name Unknown Organization [facility] Address [address] [place] [address] Phone [phone] Care Team Providers Care Career Placement Services Counselor Name Role Phone Abdon Pa DO Primary Care Provider [phone] Reason for Visit * Reason Onset Date Comments Medication Refill 10/12/2024 Encounter Details Date Type Department Care Team (Late st Contact Info) Description 10/12/2024 Refill Family Practice [address] [place] [address] [place] [id number] Abdon Pa DO [address] [place] [address] Lumbar degenerative disc disease Allergies Active Allergy Reactions Criticality Noted Date Comments Clopidogrel Edema face/lips/tongue High 06/03/2020 Other Reaction(s): SWELLING OF FACE/LIPS/TONGUE Oxycodone Edema Other High 12/05/2022 Percodan 11/23/2000 edema Ticagrelor Edema face/lips/tongue High 07/28/2020 Other Reaction(s): SWELLING OF FACE/LIPS/TONGUE documented as of this encounter (statuses as of 10/15/2024) Medications Aspirin 81 MG Oral Tablet ChewableIndicatio ns:Coronary artery disease involving gakona heart without angina pectoris, unspecified vessel or lesion type Take 1 Tablet by mouth daily. with food. 100 Tablet 5 07/12/20 21 Active Vitamin D3 50 MCG (2000 UT) Oral Capsule Take 1 Capsule by mouth in the morning. 30 Capsule 5 01/13/20 22 Active Calcium 500 MG Oral Tablet Take 1 Tablet by mouth in the morning. With food.. 100 Tablet 11 01/13/20 22 Active oxygen IN GASIndications:He art failure, systolic, due to CAD ([facility]),SOB (shortness of breath),COPD, group B, by GOLD 2017 classification ([facility]),Chronic respiratory failure with hypoxia ([facility]) Portable unit thru [employer]. 2 LPM continuous. 1 Each 05/14/20 23 Active Additional Information Patient taking differently: Portable unit thru [employer].4 LPM continuous., Reported on 11/22/2023 Ventolin HFA 108 (90 Base) MCG/ACT Inhalation Aerosol SolutionIndicatio ns:Asthma with COPD (chronic obstructive pulmonary disease) ([facility]) Inhale 2 Puffs by mouth every 4 [...] state,Moderate episode of recurrent major depressive disorder ([facility]) Take 1 Tablet by mouth at bedtime [...] BY MOUTH EVERY MORNING 100 Tablet 3 4 8:57 AM EST 04/02/20 24 025 Active Desvenlafaxine Succinate ER [...] mg per tab)Indications:C oronary artery disease involving gakona heart without angina pectoris, unspecified vessel or [...] 5 1:22 PM EST 08/19/19 25 Active Atorvastatin Calcium 80 MG Oral Tablet (Lipitor)Indicati ons:Dyslipidemia, goal LDL below 70 Take 1 Tablet by mouth in the morning. 100 Tablet 3 5 12:52 PM EST 08/22/19 25 Active Nitroglycerin 0.4 MG Sublingual Tablet [...] only. 30 Tablet 5 09/10/19 25 Active Hospital, Clinic, or Other Facility Administered Medication Ordered Dose Route Frequency Start Date End Date Status vitamin b-12 (Cyanocobalamin) inj 1,000 mcgIndications:Vitamin B 12 deficiency 1000 mcg IM [id number] 04/01/2024 03/03/2025 Active documented as of this encounter (statuses as of 10/15/2024) Active Problems Problem Noted Date Diagnosed Date [...] Inhaler Self-Management plan Other/Additional Comments: will contact [facility] Exacerbation plan Chest Xray Assessment & Plan [...] 05/10/2009 Overview (12/30/2010): Sees Carmen Mccormick in [place] for her pain meds - under contract w/ them since 11/2010 - pls do not refill any pain meds through PCP office. Other chronic pain 05/10/2009 Overview (12/30/2010): Chronic CHILDRESS and joint pains since CVA Sees Carmen Mccormick in [place] for her pain meds - under contract w/ them since 11/2010 - pls do not refill any pain meds through PCP office. OLD MYOCARDIAL INFARCT 03/04/2009 Overview (03/04/2009): Modified by Acute [facility] Protocol #5. 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 Overview (12/30/2010): slow speech at [facility], also confusion in MyG emails Osteoporosis documented as of this encounter (statuses as of 10/15/2024) Resolved Problems Problem Noted Date Diagnosed Date [...] Other specified urticaria 09/30/2009 Overview (09/30/2009): began 2nd August, Cerebrovascular disease, art eriosclerotic, post-stroke 11/24/2008 12/29/2010 Overview (11/26/2008): Modified per CVA protocol #8 Other nonspecific abnormal c ardiovascular system function study 09/21/2008 07/28/2020 EXAMINATION OF PARTICIPANT I N CLINICAL TRIAL- genomics 09/21/2008 11/26/2009 Overview (11/26/2009): Renamed Per Clinical Trials Billing Project. Study Titile: Genomics Markers for Patients with Cardiovascular Disease Project # [id number] PI: Magdalena Carbone MD Please call [phone] with study related questions GENOMICS CARDIO RESEARCH OTHER*[id number] 09/21/2008 09/19/2016 Overview (11/26/2009): Renamed Per Clinical Trials Billing Project. Study Titile: Genomics Markers for Patients with Cardiovascular Disease Project # [id number] PI: Magdalena Carbone MD Please call [phone] with study related questions CVA 05/02/2006 11/26/2008 Overview (11/26/2008): Modified per CVA protocol #8 ADVANCE DIRECTIVE INFORMATION 12/13/2004 06/16/2024 Overview (12/13/2004): Brochure given to pt. Magdy ÁLVAREZ 03/04/2009 Overview (03/04/2009): Modified by [facility] Protocol #5. PURE HYPERCHOLESTEROLEM 07/13 Overview (07/28/2009): Per Lipid Taxonomy. Need for prophylactic hormon e replacement therapy (postmenopausal) 07/28/2020 documented as of this encounter (statuses as of 10/15/2024) Immunizations Name Administration Dates Next Due COVID-19 mRNA, LNP-s, No Pre serve, 2-Dose Series (SeeWhy) 06/20/2021,10/06/2020,09/15/2020 COVID-19, LNP-s, No Preserve , Sadi-sucrose, Ages 12+ (Pfizer) 12/20/2021 COVID-19, MRNA-LNP, PF, 30 M CG/0.3 mL, 12 YRS AND ABOVE, IM ([facility]) 06/24/2024,06/14/2023 Covid-19, Mrna, Lnp-s, Pf, B ivalent, 30 Mcg, IM, 12 yrs and above (SeeWhy) 06/06/2022 Pneumococcal Conjugate Vacc, 13 Valent (Prevnar) [...] on file documented as of this encounter Miscellaneous Notes * Telephone Encounter - Jami [facility] - 10/15/2024 8:28 AM ESTPending Prescriptions: Disp Refills HYDROcodone-Acetaminophen 7.5-325 MG Oral *90 Tab*0 Sig: Take 1 Tablet by mouth every 8 hours as needed for Pain, Severe. * Telephone Encounter - Jami Hope [facility] - 10/15/2024 8:27 AM EST I have reviewed the patients controlled substance dispensing history in the Prescription Drug Monitoring Program in compliance with the [facility] regulations before prescribing a controlled substance. PDMP checked on 10/15/2024. Pending Prescriptions: Disp Refills HYDROcodone-Acetaminophen 7.5-325 MG Oral*90 Tab*0 Sig: Take 1 Tablet by mouth every 8 hours as needed for Pain, Severe. Last Visit: 08/20/2024 (in office), Visit date not found (telemedicine) Next Visit: 10/27/2024 Date medication was last filled: 09/15/24 Date medication is due for refill: 10/12/24 Pharmacy: [id number] [address] [place] [address] Is this request for a controlled substance? Yes and Urine Drug Screen was completed Toxicology results: Results for orders placed or performed in visit on 08/19/24 PAIN MANAGEMENT DRUG PANEL, URINE W/ INTERPRETATION Result Value Pain Management Interpretation Based on the medication information provided: The presence of hydrocodone, dihydrocodeine and hydromorphone is CONSISTENT with hydrocodone use. Amphetamines Screen, U Negative Benzodiazepines Screen, U Negative Cannabinoids Screen, U Negative Cocaine Metabolite Screen, U Negative Fentanyl Screen, U Negative Hydrocodone Screen, U Refer to confirmation results (A) Methadone Metabolite Screen, U Negative Morphine/Codeine Screen, U Refer to confirmation results (A) Oxycodone Screen, U Refer to confirmation results (A) Specimen Validity Interpretation Normal Creatinine, U 124 Narrative Cutoff Concentrations: Drug Level Amphetamines 500 ng/mL Benzodiazepines 100 ng/mL Cannabinoids 50 ng/mL Cocaine Metabolite 150 ng/mL Fentanyl 1 ng/mL Hydrocodone / Hydromorphone 300 ng/mL Methadone Metabolite 100 ng/mL Morphine / Codeine 300 ng/mL Oxycodone / Oxymorphone 100 ng/mL Screening results are presumptive and can only be used for medical purposes. Confirmatory testing is available upon request. *Note: Due to a large number of results and/or encounters for the requested time period, some results have not been displayed. A complete set of results can be found in Results Review. Please approve if appropriate. Thanks, Jami Roche, Pharm D, BCACP Clinical Pharmacist [address] [facility] 10/15/2024, 8:27 AM Ph. [phone] documented in this encounter Plan of Treatment Upcoming Encounters Date Type Department Care Team (Late st Contact Info) Description 10/21/2024 11:15 AM EDT Imaging Radiology [address] [phone] 10/27/2024 1:20 PM EDT Anticoagulation Family Practice [address] [facility] [address] [place] [address] College, Pharmacist [address] [place] [address] 12/18/2024 10:00 AM EDT Office Visit Family Practice [address] [facility] [address] [place] [address] Abdon Pa, [address] [place] [address] 03/10/2025 3:00 PM EDT Office Visit Cardiology, [facility] [address] [place] [address] [place], [place] [address] [place] [address] Health Maintenance Due Date Last Done Comments DISCUSS TOBACCO CESSATION (REFER TO SMARTSET #0951) 1955 Fecal Occult Blood Test 1998 Sigmoidoscopy 1998 Colonoscopy 12/27/2020 12/27/2010 Adult Wellness Visit 07/14/2023 07/14/2022, 03/01/20 21 Mammogram 08/23/2023 08/23/2022, 11/2021, 08/16/2021, Additional history exists Cologuard 08/29/2024 08/29/2021, 10/2021, 08/15/2021 Colorectal Cancer Screening 08/29/2024 Depression Monitoring 11/12/2024 11/13/2023 GFR 02/17/2025 08/20/2024, 10/11, 09/06/2023, Additional history exists Albumin/Creatinine Ratio 08/19/2025 025, 10/31/2023, 05/17/2022 CKD HGB USE SMARTSET 01095 08/20/202508/20, 08/20/2024, 10/30/2023, Additional history exists CKD PHOS USE SMARTSET 81762 08/20/2025 08/20/2024, 0 10/27/2004 O2 ASSESSMENT COMPLETED IN PAST YEAR FOR COPD 08/20/2025 08/20/2024 DXA Scan 02/04/2026 02/05/2024, 01/12, 12/20/2021, Additional [...] D LEVEL ONCE IN A LIFETIME-USE SMARTSET# [id number] Completed 08/20/2024, 10/30/2023, 04/13/2022, Additional history exists [...] COPD, group B, by GOLD 2017 classification ([facility]) Age-related osteoporosis without current pathological fracture Senile osteoporosis Cerebrovascular disease, arteriosclerotic, post-stroke Cerebral atherosclerosis Chronic systolic heart failure (HCC) Chronic systolic heart failure Coronary artery disease involving gakona coronary artery of gakona heart without angina pectoris Old myocardial infarct [...] COPD, group B, by GOLD 2017 classification ([facility])- Primary Heart failure, systolic, due to CAD ([facility]) Unspecified systolic heart failure Paroxysmal atrial fibrillation (HCC) Atrial fibrillation Cerebrovascular disease, arteriosclerotic, post-stroke Cerebral atherosclerosis Advanced care planning/counseling discussion Other specified counseling Lumbar degenerative disc disease Degeneration of lumbar or lumbosacral intervertebral disc documented in this encounter Advance Directives Documents on File Type Date Recorded Patient 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 Expl anation Advance Directives and Living Will 06/17/2021 ADVANCE DIRECTIVE / LIVING WILL Power of Manager Customs 06/17/2021 POWER OF A TTORNEY * Full Code (Latest Code Status on File) Date Activated Date Inactivated Comments 09/21/2008 9:29 AM 09/22/2008 3:05 PM Healthcare Agents on File Name Relationship Healthcare Agent Relationship Communication Fanny Fernandez Other - (no specific identity) Health Care Agent (per Health Care Power of Manager Customs document) Care Teams Career Placement Services Counselor Relationship Specialty Start Date End Date Abdon Pa DO [address] [place] [address] PCP - General Internal Medicine 01/24/24 documented as of this encounter
--- OUTSIDE RECORDS SUMMARY | 2024-11-07 07:12 | External Medical Summary | Summary of Care ---
Author Name Unknown Organization [facility] Address [address] [place] [address] Phone [phone] Care Team Providers Care Archery Instructor Name Role Phone Abdon Pa DO Primary Care Provider Encounter Details Date Type Department Care Team (Latest Contact Info) Description 09/23/2024 Medication Management [facility] [address], [place] [id number] Jami Hope, [facility] [address] [place], [place] [id number] Referred for management of medication therapy* Allergies Active Allergy Reactions Criticality Noted Date Comments Clopidogrel Edema face/lips/tongue High 06/03/2020 Other Reaction(s): SWELLING OF FACE/LIPS/TONGUE Oxycodone Edema Other High 12/05/2022 Percodan 11/23/2000 edema Ticagrelor Edema face/lips/tongue High 07/28/2020 Other Reaction(s): SWELLING OF FACE/LIPS/TONGUE documented as of this encounter (statuses as of 10/01/2024) Medications Aspirin 81 MG Oral Tablet ChewableIndicatio ns:Coronary artery disease involving [place] heart without angina pectoris, unspecified vessel or lesion type Take 1 Tablet by mouth daily. with food. 100 Tablet 5 07/12/20 21 Active Vitamin D3 50 MCG (1999 UT) Oral Capsule Take 1 Capsule by mouth in the morning. 30 Capsule 5 01/13/20 22 Active Calcium 500 MG Oral Tablet Take 1 Tablet by mouth in the morning. With food.. 100 Tablet 11 01/13/20 22 Active oxygen IN GASIndications:He art failure, systolic, due to CAD ([facility]),SOB (shortness of breath),COPD, group B, by GOLD 2017 classification ([facility]),Chronic respiratory failure with hypoxia ([facility]) Portable unit thru [employer]. 2 LPM continuous. 1 Each 05/14/20 23 Active Additional Information Patient taking differently: Portable unit thru [employer].4 LPM continuous., Reported on 11/22/2023 Ventolin HFA 108 (90 Base) MCG/ACT Inhalation Aerosol SolutionIndicatio ns:Asthma with COPD (chronic obstructive pulmonary disease) ([facility]) Inhale 2 Puffs by mouth [...] state,Moderate episode of recurrent major depressive disorder ([facility]) Take 1 Tablet by mouth [...] mg per tab)Indications:C oronary artery disease involving [place] heart without angina pectoris, unspecified vessel or [...] as needed for Pain, Severe. 90 Tablet 09/15/19 25 Active Hospital, Clinic, or Other Facility Administered Medication Ordered Dose Route Frequency Start Date End Date Status vitamin b-12 (Cyanocobalamin) inj 1,000 mcgIndications:Vitamin B 12 deficiency 1000 mcg IM [id number] 04/01/2024 03/03/2025 Active documented as of this encounter (statuses as of 10/01/2024) Active Problems Problem Noted Date Diagnosed Date [...] Inhaler Self-Management plan Other/Additional Comments: will contact [facility] Exacerbation plan Chest Xray Assessment & Plan [...] statin MEDICATION USE AGREEMENT 05/10/2009 Overview (12/30/2010): [facility] in [place] for her pain meds - under contract w/ them since 11/2010 - pls do not refill any pain meds through PCP office. Other chronic pain 05/10/2009 Overview (12/30/2010): Chronic CHILDRESS and joint pains since CVA Sees [facility] in [place] for her pain meds - under contract w/ them since 11/2010 - pls do not refill any pain meds through PCP office. OLD MYOCARDIAL INFARCT 03/04/2009 Overview (03/04/2009): Modified by Acute AR Protocol #5. 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 Study Titile: Genomics Markers for Patients with Cardiovascular Disease Project # [id number] PI: Magdalena Carbone MD Please call [phone] with study related questions CVA 05/02/2006 11/26/2008 Overview (11/26/2008): Modified per CVA protocol #8 ADVANCE DIRECTIVE INFORMATION 12/13/2004 06/16/2024 Overview (12/13/2004): Brochure given to pt. Acute AR 03/04/2009 Overview (03/04/2009): Modified by Acute AR Protocol #5. PURE HYPERCHOLESTEROLEM 07/13 Overview (07/28/2009): Per Lipid Taxonomy. Need for prophylactic hormon e replacement therapy (postmenopausal) 07/28/2020 documented as of this encounter (statuses as of 10/01/2024) Immunizations Name Administration Dates Next Due COVID-19 mRNA, LNP-s, No Pre serve, 2-Dose Series ([facility] 06/20/2021,10/06/2020,09/15/2020 COVID-19, LNP-s, No Preserve , Sadi-sucrose, Ages 12+ ([facility] 12/20/2021 COVID-19, MRNA-LNP, PF, 30 M CG/0.3 mL, 12 YRS AND ABOVE, IM ([facility]-Comir[facility]) 06/24/2024,06/14/2023 Covid-19, Mrna, Lnp-s, Pf, B ivalent, 30 Mcg, IM, 12 yrs and above ([facility] 06/06/2022 Pneumococcal Conjugate Vacc, 13 Valent (Prevnar) [...] as of this encounter Progress Notes * Jami Hope, [facility] - 10/01/2024 3:51 PM EST Malia Nice is a 68 year old female. Objective: Review of patient's allergies indicates: Allergen Reactions Clopidogrel Edema face/lips/tongue Other Reaction(s): SWELLING OF FACE/LIPS/TONGUE Oxycodone Edema Other Ticagrelor Edema face/lips/tongue Other Reaction(s): SWELLING OF FACE/LIPS/TONGUE Percodan edema Current Outpatient Medications - WARNING: List may be incomplete due to filtering Medication Sig Dispense Refill HYDROcodone-Acetaminophen 7.5-325 MG Oral Tablet Take 1 Tablet by mouth every 8 hours as needed forPain, Severe. 90 Tablet 0 Furosemide 20 MG Oral Tablet (Lasix) Take 1 Tablet by mouth once a day on Sunday, Sunday, and Sunday only. 30 Tablet 5 Nitroglycerin 0.4 MG Sublingual Tablet Sublingual (Nitrostat) Place one tab under tongue every 5 min up to three times as needed for chest pain, max of 3 doses 25 Tablet 1 Atorvastatin Calcium 80 MG Oral Tablet (Lipitor) Take 1 Tablet by mouth in the morning. 100 Tablet 3 Metoprolol Succinate ER 25 MG Oral Tablet Extended Release 24 Hour (toPROL XL) TAKE ONE TABLET BY MOUTH TWICE A DAY 180 Tablet 0 Ondansetron HCl 4 MG Oral Tablet (Zofran) TAKE ONE TABLET BY MOUTH EVERY 8 HOURS NEEDED FOR NAUSEA 30 Tablet 0 Entresto 97-103 MG Oral Tablet (sacubitril-valsartan 97-103 mg per tab) Take 1 Tablet by mouth in the morning and 1 Tablet before bedtime. 180 Tablet 3 Warfarin Sodium 2.5 MG Oral Tablet (Coumadin) Take 1 Tablet by mouth every evening. OR DIRECTED BY ANTICOAGULATION PHARMACIST 100 Tablet 1 amLODIPine Besylate 2.5 MG Oral Tablet (Norvasc) Take 1 Tablet by mouth daily. 100 Tablet 3 Pantoprazole Sodium 40 MG Oral Tablet Delayed Release (Protonix) TAKE ONE TABLET BY MOUTH TWICE A DAY in the MORNING AND BEDTIME 200 Tablet 3 Desvenlafaxine Succinate ER 100 MG Oral Tablet Extended Release 24 Hour (Pristiq) Take 1 Tablet by mouth in the morning. 90 Tablet 1 Famotidine 20 MG Oral Tablet (Pepcid) TAKE ONE TABLET BY MOUTH EVERY MORNING 100 Tablet 3 busPIRone HCl 5 MG Oral Tablet (Buspar) take one tablet by mouth in the morning and one tablet before bedtime 200 Tablet 3 Mirtazapine 45 MG Oral Tablet (Remeron) Take 1 Tablet by mouth at bedtime 100 Tablet 3 hydrOXYzine HCl 25 MG Oral Tablet Take 1 Tablet by mouth 3 times a day as needed for Itching. 180 Tablet 2 Alendronate Sodium 70 MG Oral Tablet (Fosamax) TAKE 1 TABLET BY MOUTH ONCE A WEEK WITH 8 OZ OF WATER, AT LEAST 30 MINUTES BEFORE FIRST MEAL OF THE DAY. DO NOT LIE DOWN FOR 30 MINUTES AFTER TAKING 15 Tablet 3 Ventolin HFA 108 (90 Base) MCG/ACT Inhalation Aerosol Solution Inhale 2 Puffs by mouth every 4 hours as needed for Cough, Wheezing or Shortness of Breath. 54 g 3 Calcium 500 MG Oral Tablet Take 1 Tablet by mouth in the morning. With food.. 100 Tablet 11 Vitamin D3 50 MCG (1999 UT) Oral Capsule Take 1 Capsule by mouth in the morning. 30 Capsule 5 Aspirin 81 MG Oral Tablet Chewable Take 1 Tablet by mouth daily. with food. 100 Tablet 5 oxygen IN GAS Portable unit thru [employer]. 2 LPM continuous. (Patient taking differently: Portable unit thru [employer]. 4 LPM continuous.) 1 Each 0 Immunization History Administered Date(s) Administered COVID-19 mRNA, LNP-s, No Preserve, 2-Dose Series ([facility] 09/15/2020, 10/06/2020, 06/20/2021 COVID-19, LNP-s, No Preserve, Sadi-sucrose, Ages 12+ ([facility] 12/20/2021 COVID-19, MRNA-LNP, PF, 30 MCG/0.3 mL, 12 YRS AND ABOVE, IM ([facility]) 06/14/2023, 06/24/2024 Covid-19, Mrna, Lnp-s, Pf, Bivalent, 30 Mcg, IM, 12 yrs and above ([facility] 06/06/2022 Pneumococcal Conjugate Vacc, 13 Valent (Prevnar) 04/22/2019, 05/10/2020 Pneumococcal Polysaccharide PPV23 (Pneumovax) 11/27/2005, 11/14/2010, 10/19/2021 RSV Vac., Recomb, Adjuvant, PF,0.5 Ml (Arexvy) 07/18/2024 Season Influenza, Quad, PF, Adjuvanted, 65+ Yrs, IM (FLUAD) 05/10/2020 Seasonal Influenza Vac., MDV, IM, 0.5 mL (Fluzone) 05/29/2005, 05/30/2006, 05/19/2008, 04/27/2009, 05/23/2010, 05/10/2011 Seasonal Influenza Virus Vaccine, Unspecified Formulation 05/29/2005, 05/30/2006, 05/19/2008, 04/27/2009, 05/23/2010, 05/10/2011 Seasonal Influenza, High Dose, Trivalent, PF, IM (Fluzone HD) 04/30/2024 Seasonal Influenza, Quadrivalent Hd (Fluzone Hd) 05/16/2022, 04/19/2023 Seasonal Influenza, Trivalent, Adjuvanted, 65+ YRS, PF, (Fluad) 04/22/2019, 04/26/2021 TDAP (age 10 and older)(Boostrix) 01/10/2022 TDAP, Age 7 and older, IM (Adacel) 10/15/2007 Zoster Vaccine Recombinant (Shingrix) 10/19/2021, 01/10/2022 TMR Interventions Incomplete Encounter MTPs No medication therapy recommendations to display Complete Encounter MTPs Other chronic pain 1 Current Medication: HYDROcodone-Acetaminophen 7.5-325 MG Oral Tablet Current Medication Sig: Take 1 Tablet by mouth every 8 hours as needed for Pain, Severe. Rationale: Medication requires monitoring - Needs additional monitoring - Safety Recommendation: Self-Monitoring Status: Accepted - no CPA Needed Identified Date: 09/23/2024 Completed Date: 09/23/2024 Note: Discussed with patient risks of hydrocodone use including fatigue, constipation and somnolence. Discussed using as infrequently as helps her pain - she states she tries to limit to 1-2 times daily. Assessment & Plan Indication, effectiveness, safety and convenience of her medications were reviewed today. The patient's medical conditions were assessed, evaluated, and deemed meeting goals of drug therapy, with thefollowing exceptions. Additional Notes: Sent request for PCP to adjust atorvastatin per patient request MTDM also managing patient's warfarin. Takeaway Information Who was the recipient of the CMR service: beneficiary Language Template for the Patient Takeaway: Vietnamese I attest that I have reviewed and updated the patient's conditions, allergies, and medications to the best of my ability. Patient provided medication list gathered by: myself Jami Cedillo RPh 09/23/2024, 3:52 PM documented in this encounter Miscellaneous Notes * MTM Personal Medication List - Jami Hope RPh - 10/01/2024 3:47 PM EST Medication How I take it Why I use it Prescriber Alendronate Sodium 70 MG Oral Tablet (Fosamax) Take 1 tablet by mouth once a week with 8 oz of water, at least 30 minutes before first meal of the day. Do not lie down for 30 minutes after taking Osteoporosis Abdon Pa DO amLODIPine Besylate 2.5 MG Oral Tablet (Norvasc) Take 1 tablet by mouth daily in the morning High blood pressure Abdon Pa DO Aspirin 81 MG Oral Tablet Chewable Take 1 tablet by mouth daily. With food. Stroke/Heart disease Abdon Pa DO Atorvastatin Calcium 80 MG Oral Tablet (Lipitor) Take 1 tablet by mouth in the morning. Cholesteroland heart protection Abdon Pa DO busPIRone HCl 5 MG Oral Tablet (Buspar) Take one tablet by mouth in the morning and one tablet before bedtime Anxiety Abdon Pa DO Calcium 500 MG Oral Tablet Take 1 tablet by mouth in the morning. With food.. Osteoporosis Abdon Pa DO Desvenlafaxine Succinate ER 100 MG Oral Tablet Extended Release 24 Hour (Pristiq) Take 1 tablet by mouth in the morning. Depression Ryanne Vang MD Entresto 97-103 MG Oral Tablet (sacubitril-valsartan 97-103 mg per tab) Take 1 tablet by mouth in the morning and 1 tablet before bedtime. Heart failure Elton Lee PA-C Famotidine 20 MG Oral Tablet (Pepcid) Take one tablet by mouth every night Heartburn Abdon Pa DO Furosemide 20 MG Oral Tablet (Lasix) Take 1 tablet by mouth once a day on sunday, sunday, and sunday only. Water pill/Heart failure Abdon Pa DO HYDROcodone-Acetaminophen 7.5-325 MG Oral Tablet Take 1 tablet by mouth every 8 hours as needed forpain, severe. Back pain Abdon Pa DO hydrOXYzine HCl 25 MG Oral Tablet Take 1 tablet by mouth 3 times a day as needed Anxiety/Sleep Abdon Pa DO Metoprolol Succinate ER 25 MG Oral Tablet Extended Release 24 Hour (toPROL XL) Take one tablet by mouth twice a day Atrial fibrillation and heart failure Elton Lee PA-C Mirtazapine 45 MG Oral Tablet (Remeron) Take 1 tablet by mouth at bedtime Anxiety and Depression Abdon Pa DO Nitroglycerin 0.4 MG Sublingual Tablet Sublingual (Nitrostat) Place one tab under tongue every 5 min up to three times as needed for chest pain, max of 3 doses Heart disease - chest pain Abdon Pa, DO Ondansetron HCl 4 MG Oral Tablet (Zofran) Take one tablet by mouth every 8 hours as needed for nausea Nausea Abdon Pa DO Pantoprazole Sodium 40 MG Oral Tablet Delayed Release (Protonix) Take one tablet by mouth twice a day in the morning and bedtime Heartburn Abdon Pa DO Ventolin HFA 108 (90 Base) MCG/ACT Inhalation Aerosol Solution Inhale 2 puffs by mouth every 4 hours as needed for cough, wheezing or shortness of breath. Asthma Artem Dodd MD Vitamin D3 50 MCG (2000 UT) Oral Capsule Take 1 capsule by mouth in the morning. Osteoporosis Waldo Pa DO Warfarin Sodium 2.5 MG Oral Tablet (Coumadin) Take 1 tablet by mouth every evening. Or as directed by anticoagulation pharmacist Atrial fibrillation Abdon Pa, DO * MTM To-Do-List - Jami Hope RPh - 10/01/2024 3:45 PM EST Images from the original note were not included. What we talked about: What I should do: The importance of taking your medication as prescribed Your medicine works best when taken as prescribed. It can be hard to remember to take daily medications. Consider making it a part of your daily routine. Pair taking your medication with something you do every day, like brushing your teeth or eating a meal. Consider setting daily alarms to help remind yourself when it is time to take your medicine. Using a pill box can also help you organize your medicines. Pill boxes allow you to fill each day slot with your daily medicine and help you track when your next dose is due. What we talked about: What I should do: Hydrocodone can cause side effects like drowsiness, constipation, and falls - especially with intermediate use. Self-monitor for these symptoms and try to use the lowest dose possible to resolve your pain. What we talked about: What I should do: You had to use your nitroglycerin tablets last week. Make sure to let Dr. Pa know if you continue to have chest pain. If you ever need to use a 3rd nitroglycerin, call 911. What we talked about: What I should do: You mentioned that you're not able to swallow your atorvastatin 80 mg tablets even with cutting them in half. Watch for a new prescription for 40 mg tablets and take 2 tablets each to equal 80 mg. documented in this encounter Plan of Treatment Upcoming Encounters Date Type Department Care Team (Late st Contact Info) Description 10/27/2024 1:20 PM EDT Anticoagulation Family Practice [address] [place] [address] [address] [place] [address] College, Pharmacist [address] [address] 12/18/2024 10:00 AM EDT Office Visit Family Practice [address] [place] [address] [address] [place] [address] Abdon Pa DO [address] [place] [address] 03/10/2025 3:00 PM EDT Office Visit Cardiology, [facility] [address] [address] Elton Lee PA-C [address] [facility] [address] [address] Health Maintenance Due Date Last Done Comments DISCUSS TOBACCO CESSATION (REFER TO SMARTSET #1091) 1953 Fecal Occult Blood Test 1998 Sigmoidoscopy 1998 Colonoscopy 12/27/2020 12/27/2010 Adult Wellness Visit 07/14/2023 07/14/2022, 03/01/20 21 Mammogram 08/23/2023 08/23/2022, 11/2021, 08/16/2021, Additional history exists Cologuard 08/29/2024 08/29/2021, 10/2021, 08/15/2021 Colorectal Cancer Screening 08/29/2024 Depression Monitoring 11/12/2024 11/13/2023 GFR 02/17/2025 08/20/2024, 10/11, 09/06/2023, Additional history exists Albumin/Creatinine Ratio 08/19/2025 025, 10/31/2023, 05/17/2022 CKD HGB USE SMARTSET 87980 08/20/202508/20, 08/20/2024, 10/30/2023, Additional history exists CKD PHOS USE SMARTSET 24810 08/20/2025 08/20/2024, 0 10/27/2004 O2 ASSESSMENT COMPLETED [...] D LEVEL ONCE IN A LIFETIME-USE SMARTSET# [id number] Completed 08/20/2024, 10/30/2023, 04/13/2022, Additional history exists [...] COPD, group B, by GOLD 2017 classification ([facility]) Age-related osteoporosis without current pathological fracture Senile osteoporosis Cerebrovascular disease, arteriosclerotic, post-stroke Cerebral atherosclerosis Chronic systolic heart failure (HCC) Chronic systolic heart failure Coronary artery disease involving [place] coronary artery of [place] heart without angina pectoris Old myocardial infarct Old myocardial infarction Paroxysmal atrial fibrillation (HCC) Atrial fibrillation Dyslipidemia, goal LDL below 70 Other and unspecified hyperlipidemia Gastroesophageal reflux disease without esophagitis Esophageal reflux Adjustment disorder with mixed anxiety and depressed mood 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 of 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 S/P angioplasty with stent Postsurgical percutaneous transluminal coronary angioplasty status S/P aortic valve replacement Heart valve replaced by other means 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 Speech and language deficit, unspecified, late effect of cerebrovascular disease COPD, group B, by GOLD 2017 classification ([facility])- Primary Heart failure, systolic, due to CAD ([facility]) Unspecified systolic heart failure Paroxysmal atrial fibrillation (HCC) Atrial fibrillation Cerebrovascular disease, arteriosclerotic, post-stroke Cerebral atherosclerosis Advanced care planning/counseling discussion Other specified counseling Referred for management of medication therapy- Primary Encounter for long-term (current) use of other medications documented in this encounter Advance Directives Documents on File Type Date Recorded Patient Identity Access Management Architect Expl anation Advance Directives and Living Will 06/17/2021 ADVANCE DIRECTIVE / LIVING WILL Power of Credit Risk Officer 06/17/2021 POWER OF A TTORNEY * Full Code (Latest Code Status on File) Date Activated Date Inactivated Comments 09/21/2008 9:29 AM 09/22/2008 3:05 PM Healthcare Agents on File Name Relationship Healthcare Agent Relationship Communication Fanny Fernandez Other - (no specific identity) Health Care Agent (per Health Care Power of Credit Risk Officer document) Care Teams Archery Instructor Relationship Specialty Start Date End Date Abdon Pa DO [address] [facility] [place] [address] PCP - General Internal Medicine 01/24/24 documented as of this encounter
--- OUTSIDE RECORDS SUMMARY | 2024-11-07 07:12 | External Medical Summary ---
Author Name Unknown Address Unknown Organization : Laboratory Report Ordering Provider Test Date Status VERONIQUE DALAL 10/27/2024 13:18:23 Final Therapeutic ranges for non-o perative patients:
Prophylaxsis/treatment of DVT: (Range:2.0-3.0)
Treatment of pulmonary embolism:(Range:2.0-3.0)
Prevention of systemic embolism from:
-tissue heart valves
-acute myocardial infarction
-valvular heart disease
-atrial fibrillation
(Range: 2.0-3.0)
Mechanical prosthetic valves: (Range: 2.5-3.5) Observation Date Value Abnormality Reference (Units ) Status INR in Capillary blood by Coagulation assay 10/27/2024 13:18:23 1.8 (INR) Final Performing Location
--- OUTSIDE RECORDS SUMMARY | 2024-11-07 07:12 | External Medical Summary | Summary of Care ---
Author Name Unknown Organization [facility] Address [address] [place] [address] Phone [phone] Care Team Providers Care Tax Credit Leasing Consultant Name Role Phone Kayce Pa DO Primary Care Provider [phone] Reason for Visit * Reason Onset Date Comments Medication Refill 10/14/2024 Encounter Details Date Type Department Care Team (Late st Contact Info) Description 10/14/2024 Refill Family Practice [address] [place] [address] [place] [phone] Kayce Pa DO [address] [place] [address] Lumbar degenerative disc disease Allergies Active Allergy Reactions Criticality Noted Date Comments Clopidogrel Edema face/lips/tongue High 06/03/2020 Other Reaction(s): SWELLING OF FACE/LIPS/TONGUE Oxycodone Edema Other High 12/05/2022 Percodan 11/23/2000 edema Ticagrelor Edema face/lips/tongue High 07/28/2020 Other Reaction(s): SWELLING OF FACE/LIPS/TONGUE documented as of this encounter (statuses as of 10/15/2024) Medications Aspirin 81 MG Oral Tablet ChewableIndicatio ns:Coronary artery disease involving nikolski heart without angina pectoris, unspecified vessel or [...] GASIndications:He art failure, systolic, due to CAD ([facility]),SOB (shortness of breath),COPD, group B, by GOLD 2017 classification ([facility]),Chronic respiratory failure with hypoxia ([facility]) Portable unit thru [employer] [facility]. 2 LPM continuous. 1 Each 05/14/20 23 Active Additional Information Patient taking differently: Portable unit thru [employer] [facility].4 LPM continuous., Reported on 11/22/2023 Ventolin HFA 108 (90 Base) MCG/ACT Inhalation Aerosol SolutionIndicatio ns:Asthma with COPD (chronic obstructive pulmonary disease) ([facility]) Inhale 2 Puffs by mouth [...] 3 5 7:18 AM EST 09/27/19 24 2024 Active hydrOXYzine HCl 25 MG Oral Tablet Take 1 Tablet by mouth 3 times a day as needed for Itching. 180 Tablet 2 4 12:55 PM EST 02/11/20 24 Active Mirtazapine 45 MG Oral Tablet (Remeron)Indicati ons:Anxiety state,Moderate episode of recurrent major depressive disorder ([facility]) Take 1 Tablet by mouth [...] 3 4 8:57 AM EST 04/02/20 24 2024 Active Desvenlafaxine Succinate ER 100 MG Oral [...] mg per tab)Indications:C oronary artery disease involving nikolski heart without angina pectoris, unspecified vessel or [...] Pain, Severe. 90 Tablet 10/16/19 25 Active HYDROcodone-Aceta minophen 7.5-325 MG Oral TabletIndications :Lumbar degenerative disc disease Take 1 Tablet by mouth every 8 hours as needed for Pain, Severe. 90 Tablet 09/15/19 25 2024 Disconti nued(Ref ill) Hospital, Clinic, or Other Facility Administered Medication Ordered Dose Route Frequency Start Date End Date Status vitamin b-12 (Cyanocobalamin) inj 1,000 mcgIndications:Vitamin B 12 deficiency 1000 mcg IM [id number] 04/01/2024 03/03/2025 Active documented as of this [...] Inhaler Self-Management plan Other/Additional Comments: will contact [facility] Exacerbation plan Chest Xray Assessment [...] MEDICATION USE AGREEMENT 05/10/2009 Overview (12/30/2010): Sees [facility] in [place] for her pain meds - under contract w/ them since 11/2010 - pls do not refill any pain meds through PCP office. Other chronic pain 05/10/2009 Overview (12/30/2010): Chronic CIHLDRESS and joint pains since CVA Sees [facility] in [place] for her pain meds - under contract w/ them since 11/2010 - pls do not refill any pain meds through PCP office. OLD MYOCARDIAL INFARCT 03/04/2009 Overview (03/04/2009): Modified by Acute PR Protocol #5. Assessment & Plan (09/04/2022 8:49 PM EST): No angina Continue above regimen S/P angioplasty with stent 09/21/2008 meterman current use of 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 0 05/02/2006 Overview (05/14/2017): ICD-10 update of inactive term Anticoagulation management encounter 05/02/2006 Coronary artery disease invo lving nikolski heart without angina pectoris Moderate episode of [...] specified urticaria 09/30/2009 Overview (09/30/2009): began 2nd week August, Cerebrovascular disease, art eriosclerotic, post-stroke 11/24/2008 12/29/2010 Overview (11/26/2008): Modified per CVA protocol #8 Other nonspecific abnormal c ardiovascular system function study 09/21/2008 07/28/2020 EXAMINATION OF PARTICIPANT I N CLINICAL TRIAL- genomics 09/21/2008 11/26/2009 Overview (11/26/2009): Renamed Per Clinical Trials Billing Project. Study Titile: Genomics Markers for Patients with Cardiovascular Disease Project # [id number] PI: Magdalena Carbone MD Please call [phone] with study related questions GENOMICS CARDIO RESEARCH OTHER*[id number] 09/21/2008 09/19/2016 Overview (11/26/2009): Renamed Per Clinical Trials Billing Project. Study Titile: Genomics Markers for Patients with Cardiovascular Disease Project # [id number] PI: Magdalena Carbone MD Please call [phone] with study related questions CVA 05/02/2006 11/26/2008 Overview (11/26/2008): Modified per CVA protocol #8 ADVANCE DIRECTIVE INFORMATION 12/13/2004 06/16/2024 Overview (12/13/2004): Brochure given to pt. Acute PR 03/04/2009 Overview (03/04/2009): Modified by Acute PR Protocol #5. PURE HYPERCHOLESTEROLEM 07/13 Overview (07/28/2009): Per Lipid Taxonomy. Need for prophylactic hormon e replacement therapy (postmenopausal) 07/28/2020 documented as of this encounter (statuses as of 10/15/2024) Immunizations Name Administration Dates Next Due COVID-19 mRNA, LNP-s, No Pre serve, 2-Dose Series (Kinoos) 06/20/2021,10/06/2020,09/15/2020 COVID-19, LNP-s, No Preserve , Sadi-sucrose, Ages 12+ (Pfizer) 12/20/2021 COVID-19, MRNA-LNP, PF, 30 M CG/0.3 mL, 12 YRS AND ABOVE, IM (PFIZER-Comirnat) 06/24/2024,06/14/2023 Covid-19, Mrna, Lnp-s, Pf, B ivalent, 30 Mcg, IM, 12 yrs and above (Pfizer) 06/06/2022 Pneumococcal Conjugate Vacc, 13 Valent (Prevnar) [...] No 08/27/2023 Does the household have a [facility] source of income? (Household - for ages [...] encounter Miscellaneous Notes * Telephone Encounter - Kayce Pa DO - 10/15/2024 12:48 PM ESTSigned Prescriptions: Disp Refills HYDROcodone-Acetaminophen 7.5-325 MG Oral *90 Tab*0 Sig: Take 1Tablet by mouth every 8 hours as needed for Pain, Severe.Authorizing Provider: KAYCE PA------ * Telephone Encounter - Kayce Pa DO - 10/15/2024 12:48 PM EST I have reviewed the patients controlled substance dispensing history in the Prescription Drug Monitoring Program in compliance with the [facility] regulations before prescribing a controlled substance. Last Tox Screen Results: Results for orders placed or performed in [...] results can be found in Results Review. Medication is due 10/13/3034 * Telephone Encounter - Ghislaine Alarcon [facility] - 10/15/2024 9:18 AM ESTPending Prescriptions: Disp Refills HYDROcodone-Acetaminophen 7.5-325 MG Oral *90 Tab*0 Sig: Take 1Tablet by mouth every 8 hours as needed for Pain, Severe. documented in this encounter Plan of Treatment Upcoming Encounters Date Type Department Care Team (Late st Contact Info) Description 10/21/2024 11:15 AM EDT Imaging Radiology [address] [place] [phone] 10/27/2024 1:20 PM EDT Anticoagulation Family Practice [address] [place] [address] [address] [facility], [place] [address] College, Pharmacist [address] [place] [address], [place] [address] 12/18/2024 10:00 AM EDT Office Visit Family Practice [address] [place] [address] [address] [facility], [place] [address] Kayce Pa, 293 [facility] [place] [address] 03/10/2025 3:00 PM EDT Office Visit Cardiology, [facility] [address] [place] [address] Elton Lee PAChrisC [address] [place] [address] Health Maintenance Due Date Last Done Comments DISCUSS TOBACCO CESSATION (REFER TO SMARTSET #2739) 1955 Fecal Occult Blood Test 1998 Sigmoidoscopy 1998 Colonoscopy 12/27/2020 12/27/2010 Adult Wellness Visit 07/14/2023 07/14/2022, 03/01/20 21 Mammogram 08/23/2023 08/23/2022, 11/2021, 08/16/2021, Additional history exists Cologuard 08/29/2024 08/29/2021, 10/2021, 08/15/2021 Colorectal Cancer Screening 08/29/2024 Depression Monitoring 11/12/2024 11/13/2023 GFR 02/17/2025 08/20/2024, 10/11, 09/06/2023, Additional history exists Albumin/Creatinine Ratio 08/19/2025 025, 10/31/2023, 05/17/2022 CKD HGB USE SMARTSET 96573 08/20/202508/20, 08/20/2024, 10/30/2023, Additional history exists CKD PHOS USE SMARTSET 04918 08/20/2025 08/20/2024, 0 10/27/2004 O2 ASSESSMENT COMPLETED [...] D LEVEL ONCE IN A LIFETIME-USE SMARTSET# 22831 Completed 08/20/2024, 10/30/2023, 04/13/2022, Additional history exists [...] COPD, group B, by GOLD 2017 classification ([facility]) Age-related osteoporosis without current pathological fracture Senile osteoporosis Cerebrovascular disease, arteriosclerotic, post-stroke Cerebral atherosclerosis Chronic systolic heart failure (HCC) Chronic systolic heart failure Coronary artery disease involving nikolski coronary artery of nikolski heart without angina pectoris Old myocardial infarct Old myocardial infarction Paroxysmal atrial fibrillation (HCC) Atrial fibrillation Dyslipidemia, goal LDL below 70 Other and unspecified hyperlipidemia Gastroesophageal reflux disease without esophagitis Esophageal reflux Adjustment disorder with mixed anxiety and depressed mood correction current use of 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 S/P angioplasty with stent Postsurgical percutaneous transluminal coronary angioplasty status S/P aortic valve replacement Heart valve replaced by other means 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 Speech and language deficit, unspecified, late effect of cerebrovascular disease COPD, group B, by GOLD 2017 classification ([facility])- Primary Heart failure, systolic, due to CAD ([facility]) Unspecified systolic heart failure Paroxysmal atrial fibrillation (HCC) Atrial fibrillation Cerebrovascular disease, arteriosclerotic, post-stroke Cerebral atherosclerosis Advanced care planning/counseling discussion Other specified counseling Lumbar degenerative disc disease Degeneration of lumbar or lumbosacral intervertebral disc documented in this encounter Advance Directives Documents on File Type Date Recorded Patient Hat Lacer Expl anation Advance Directives and Living Will 06/17/2021 ADVANCE DIRECTIVE / LIVING WILL Power of Cable Lacer 06/17/2021 POWER OF A TTORNEY * Full Code (Latest Code Status on File) Date Activated Date Inactivated Comments 09/21/2008 9:29 AM 09/22/2008 3:05 PM Healthcare Agents on File Name Relationship Healthcare Agent Relationship Communication Fanny Fernandez Other - (no specific identity) Health Care Agent (per Health Care Power of Cable Lacer document) Care Teams Tax Credit Leasing Consultant Relationship Specialty Start Date End Date Kayce Pa DO [address] [place] [address] PCP - General Internal Medicine 01/24/24 documented as of this encounter
--- OUTSIDE RECORDS SUMMARY | 2024-11-07 07:12 | External Medical Summary | Summary of Care ---
Author Name Unknown Organization [facility] Address [address] [place] [address] Phone [phone] Care Team Providers Care Adjunct Teacher Name Role Phone Abdon Pa DO Primary Care Provider [phone] Reason for Visit * Reason Comments Dosage Adjustment In Person (Anticoag Cl inic) Encounter Details Date Type Department Care Team (Late st Contact Info) Description 10/27/2024 1:20 PM EDT Anticoagulation Family Practice 65 [facility] [address] [place] [address] College, Pharmacist [address] [address] Anticoagulation management encounter*; Cerebrovascular disease, arteriosclerotic, post-stroke Allergies Active Allergy Reactions Criticality Noted Date Comments Clopidogrel Edema face/lips/tongue High 06/03/2020 Other Reaction(s): SWELLING OF FACE/LIPS/TONGUE Oxycodone Edema Other High 12/05/2022 Percodan 11/23/2000 edema Ticagrelor Edema face/lips/tongue High 07/28/2020 Other Reaction(s): SWELLING OF FACE/LIPS/TONGUE documented as of this encounter (statuses as of 10/28/2024) Medications Aspirin 81 MG Oral Tablet ChewableIndicatio ns:Coronary artery disease involving [place] heart without angina pectoris, unspecified vessel or [...] GASIndications:He art failure, systolic, due to CAD ([facility]),SOB (shortness of breath),COPD, group B, by GOLD 2017 classification ([facility]),Chronic respiratory failure with hypoxia ([facility]) Portable unit thru [facility]. 2 LPM continuous. 1 Each 05/14/20 23 Active Additional Information Patient taking differently: Portable unit thru [employer] [facility].4 LPM continuous., Reported on 11/22/2023 Ventolin HFA 108 (90 Base) MCG/ACT Inhalation Aerosol SolutionIndicatio ns:Asthma with COPD (chronic obstructive pulmonary disease) ([facility]) Inhale 2 Puffs by mouth every 4 [...] state,Moderate episode of recurrent major depressive disorder ([facility]) Take 1 Tablet by mouth at bedtime [...] 3 5 7:33 AM EDT 04/02/20 24 2024 Active Desvenlafaxine Succinate ER [...] mg per tab)Indications:C oronary artery disease involving [place] heart without angina pectoris, unspecified vessel or [...] 90 Tablet 10/16/19 25 Active Atorvastatin Calcium 80 MG Oral Tablet (Lipitor)Indicati ons:Dyslipidemia, goal LDL below 70 Take 1 Tablet by mouth in the morning. 100 Tablet 3 5 12:52 PM EST 08/22/19 25 2024 Disconti nued(Med ication/ Dose Changed) Hospital, Clinic, or Other Facility Administered Medication Ordered Dose Route Frequency Start Date End Date Status vitamin b-12 (Cyanocobalamin) inj 1,000 mcgIndications:Vitamin B 12 deficiency 1000 mcg IM [id number] 04/01/2024 03/03/2025 Active documented as of this [...] Inhaler Self-Management plan Other/Additional Comments: will contact [facility] Exacerbation plan Chest Xray Assessment & Plan [...] USE AGREEMENT 05/10/2009 Overview (12/30/2010): Sees [facility] in [place] for her pain meds - under contract w/ them since 11/2010 - pls do not refill any pain meds through PCP office. Other chronic pain 05/10/2009 Overview (12/30/2010): Chronic CHILDRESS and joint pains since CVA Sees [facility] in [place] for her pain meds - under contract w/ them since 11/2010 - pls do not refill any pain meds through PCP office. OLD MYOCARDIAL INFARCT 03/04/2009 Overview (03/04/2009): Modified by Acute [place] Protocol #5. Assessment & Plan (09/04/2022 8:49 PM EST): No angina Continue above regimen S/P angioplasty with stent 09/21/2008 supervisor intermediates current use of 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 0 05/02/2006 Overview (05/14/2017): ICD-10 update of inactive term Anticoagulation management encounter 05/02/2006 Coronary artery disease invo lving [place]oleville heart without angina pectoris Moderate episode of [...] for Patients with Cardiovascular Disease Project # PI: Magdalena Carbone MD Please call [phone] with study related questions GENOMICS CARDIO RESEARCH OTHER*[id number] 09/21/2008 09/19/2016 Overview (11/26/2009): Renamed Per Clinical Trials Billing Project. Study Titile: Genomics Markers for Patients with Cardiovascular Disease Project # PI: Magdalena Carbone MD Please call [phone] with study related questions CVA 05/02/2006 11/26/2008 Overview (11/26/2008): Modified per CVA protocol #8 ADVANCE DIRECTIVE INFORMATION 12/13/2004 06/16/2024 Overview (12/13/2004): Brochure given to pt. Acute OR 03/04/2009 Overview (03/04/2009): Modified by Acute [place] Protocol #5. PURE HYPERCHOLESTEROLEM 07/13 Overview (07/28/2009): Per Lipid Taxonomy. Need for prophylactic hormon e replacement therapy (postmenopausal) 07/28/2020 documented as of this encounter (statuses as of 10/28/2024) Immunizations Name Administration Dates Next Due COVID-19 mRNA, LNP-s, No Pre serve, 2-Dose Series ([employer]rent) 06/20/2021,10/06/2020,09/15/2020 COVID-19, LNP-s, No Preserve , Sadi-sucrose, Ages 12+ (Pfizer) 12/20/2021 COVID-19, MRNA-LNP, PF, 30 M CG/0.3 mL, 12 YRS AND ABOVE, IM (PFIZER-Comirnaty) 06/24/2024,06/14/2023 Covid-19, Mrna, Lnp-s, Pf, B ivalent, 30 Mcg, IM, 12 yrs and above ([employer]) 06/06/2022 Pneumococcal Conjugate Vacc, 13 Valent (Prevnar) [...] No 08/27/2023 Does the household have a [facility] source of income? (Household - for ages [...] as of this encounter Progress Notes * Alex Roche, Jami Penaloza, [facility] - 10/27/2024 1:18 PM EDT Images from the original note were not included. Medication Therapy Disease Management - Anticoagulation Patient: Malia Nice | : 1955 Subjective Patient-Reported Symptoms: Patient Findings Positives: Change in diet/appetite (increased Vit K) Negatives: Signs/symptoms of thrombosis, Signs/symptoms of bleeding, Change in health, Change in alcohol use, Change in activity, Upcoming invasive procedure, Missed doses, Extra doses, Change in medications, Bruising Objective Current Warfarin Dose As of 10/27/2024 Warfarin maintenance plan: 2.5 mg (2.5 mg x 1) every day INR Result As of 10/27/2024 INR goal: 2.0-3.0 INR used for dosin.8 (10/27/2024) Assessment & Plan Warfarin Plan As of 10/27/2024 Full warfarin instructions: 2.5 mg every day No change documented: Jami Hope [facility] Next INR check: 11/24/2024 Repeat PT/INR in 4 week(s) Weekly dose: not changed Additional Dosing Information: I spent a total of 10-19 minutes (exact time 10 mins) on the date of service in preparation, delivery, and documentation of the care provided to Malia Nice excluding any time spent in the performance of separately billed services or time spent by another provider/QHP. Jami Cedillo [facility] Clinical Pharmacist 10/27/2024, 1:18 PM documented in this encounter Plan of Treatment Upcoming Encounters Date Type Department Care Team (Late st Contact Info) Description 11/24/2024 1:20 PM EDT Anticoagulation Family Practice [address] [place] [phone] College, Pharmacist [address] [place] [address] 11/24/2024 1:30 PM EDT Nurse Only Family Practice [address] [place] [phone] College, Nurse Fam Prac [address] [place] [address] 12/18/2024 10:00 AM EDT Office Visit Family Practice [address] [place] [phone] Abdon Pa, [address] [place], [place] [address] [address] 03/10/2025 3:00 PM EDT Office Visit Cardiology, [facility] [address] [place] [address] Elton Lee PA-C [address] [place] [address] Health Maintenance Due Date Last Done Comments DISCUSS TOBACCO CESSATION (REFER TO SMARTSET #3291) 1955 Fecal Occult Blood Test 1998 Sigmoidoscopy 1998 Colonoscopy 12/27/2020 12/27/2010 Adult Wellness Visit 07/14/2023 07/14/2022, 03/01/20 21 Cologuard 08/29/2024 08/29/2021, 10/2021, 08/15/2021 Colorectal Cancer Screening 08/29/2024 Depression Monitoring 11/12/2024 11/13/2023 GFR 02/17/2025 08/20/2024, 10/11, 09/06/2023, Additional history exists Albumin/Creatinine Ratio 08/19/2025 025, 10/31/2023, 05/17/2022 CKD HGB USE SMARTSET 43502 08/20/202508/20, 08/20/2024, 10/30/2023, Additional history exists CKD PHOS USE SMARTSET 46536 08/20/2025 08/20/2024, 0 10/27/2004 O2 ASSESSMENT COMPLETED [...] D LEVEL ONCE IN A LIFETIME-USE SMARTSET# 27549 Completed 08/20/2024, 10/30/2023, 04/13/2022, Additional history exists [...] Not on filedocumented as of this encounter Procedures Procedure Name Priority Date/Time Associated Diagnosis Comments INR FINGERSTICK, POINT OF CARE DINAH 10/27/2024 1:18 PM EDT documented in this encounter Results * INR FINGERSTICK, POINT OF CARE (10/27/2024 1:18 PM EDT) Fingerstick INR 1.8 INR 1:22 PM EDT [facility] Blood 10/27/2024 1:18 PM EDT 10/27/2024 1:22 PM EDT Narrative [facility] - 10/27/2024 1:22 PM EDT Therapeutic ranges for non-operative patients: Prophylaxsis/treatment of DVT: (Range:2.0-3.0) Treatment of pulmonary embolism:(Range:2.0-3.0) Prevention of systemic embolism from: -tissue heart valves -acute myocardial infarction -valvular heart disease -atrial fibrillation (Range: 2.0-3.0) Mechanical prosthetic valves: (Range: 2.5-3.5) us Pharmacist 65 [facility] LAB POINT OF CARE TEST DOCKED DEVICE UNSOLICITED RESULTS Final Result [facility] [place] [address], [facility] documented in this encounter Visit Diagnoses Diagnosis Advanced care planning/counseling discussion- Primary Other specified counseling COPD, group B, by GOLD 2017 classification (HCC) Age-related osteoporosis without current pathological fracture Senile osteoporosis Cerebrovascular disease, arteriosclerotic, post-stroke Cerebral atherosclerosis Chronic systolic heart failure (HCC) Chronic systolic heart failure Coronary artery disease involving [place] coronary artery of [place] heart without angina pectoris Old myocardial infarct Old myocardial infarction Paroxysmal atrial fibrillation (HCC) Atrial fibrillation Dyslipidemia, goal LDL below 70 Other and unspecified hyperlipidemia Gastroesophageal reflux disease without esophagitis Esophageal reflux Adjustment disorder with mixed anxiety and depressed mood detention current use of 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 S/P angioplasty with stent Postsurgical percutaneous transluminal coronary angioplasty status S/P aortic valve replacement Heart valve replaced by other means 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 Speech and language deficit, unspecified, late effect of cerebrovascular disease COPD, group B, by GOLD 2017 classification (HCC)- Primary Heart failure, systolic, due to CAD (HCC) Unspecified systolic heart failure Paroxysmal atrial fibrillation (HCC) Atrial fibrillation Cerebrovascular disease, arteriosclerotic, post-stroke Cerebral atherosclerosis Advanced care planning/counseling discussion Other specified counseling Anticoagulation management encounter- Primary Encounter for therapeutic drug monitoring Cerebrovascular disease, arteriosclerotic, post-stroke Cerebral atherosclerosis documented in this encounter Advance Directives Documents on File Type Date Recorded Patient Retirement Administrator Expl anation Advance Directives and Living Will 06/17/2021 ADVANCE DIRECTIVE / LIVING WILL Power of Gas Well Drilling Manager 06/17/2021 POWER OF A TTORNEY * Full Code (Latest Code Status on File) Date Activated Date Inactivated Comments 09/21/2008 9:29 AM 09/22/2008 3:05 PM Healthcare Agents on File Name Relationship Healthcare Agent Relationship Communication Fanny Fernandez Other - (no specific identity) Health Care Agent (per Health Care Power of Gas Well Drilling Manager document) Care Teams Adjunct Teacher Relationship Specialty Start Date End Date Abdon Pa DO [address] [place] [address] PCP - General Internal Medicine 01/24/24 documented as of this encounter
--- OUTSIDE RECORDS SUMMARY | 2024-11-07 07:13 | External Medical Summary | Summary of Care ---
Author Name Unknown Organization [facility] Address [address] [place] [address] Phone [phone] Care Team Providers Care Lining Maker Hand Name Role Phone Abdon Pa DO Primary Care Provider [phone] Encounter Details Date Type Department Care Team (Late st Contact Info) Description 09/23/2024 Population Health External Data Unspecified Department Allergies Active Allergy Reactions Criticality Noted Date Comments Clopidogrel Edema face/lips/tongue High 06/03/2020 Other Reaction(s): SWELLING OF FACE/LIPS/TONGUE Oxycodone Edema Other High 12/05/2022 Percodan 11/23/2000 edema Ticagrelor Edema face/lips/tongue High 07/28/2020 Other Reaction(s): SWELLING OF FACE/LIPS/TONGUE documented as of this encounter (statuses as of 09/24/2024) Medications Aspirin 81 MG Oral Tablet ChewableIndicatio ns:Coronary artery disease involving [place] heart without angina pectoris, unspecified vessel or lesion type Take 1 Tablet by mouth daily. with food. 100 Tablet 5 07/12/20 21 Active Vitamin D3 50 MCG (1999 UT) Oral Capsule Take 1 Capsule by mouth in the morning. 30 Capsule 01/13/20 22 Active Calcium 500 MG Oral Tablet Take 1 Tablet by mouth in the morning. With food.. 100 Tablet 01/13/20 22 Active oxygen IN GASIndications:He art failure, systolic, due to CAD (HCC),SOB (shortness of breath),COPD, group B, by GOLD 2017 classification ([facility]),Chronic respiratory failure with hypoxia ([facility]) Portable unit thru [employer]. 2 LPM continuous. 1 Each 05/14/20 23 Active Additional Information Patient taking differently: Portable unit thru [employer].4 LPM continuous., Reported on 11/22/2023 Ventolin HFA 108 (90 Base) MCG/ACT Inhalation Aerosol SolutionIndicatio ns:Asthma with COPD (chronic obstructive pulmonary disease) ([facility]) Inhale 2 Puffs by mouth every 4 [...] state,Moderate episode of recurrent major depressive disorder (HCC) Take 1 Tablet by mouth at bedtime [...] mg per tab)Indications:C oronary artery disease involving [place] heart without angina pectoris, unspecified vessel or [...] mcgIndications:Vitamin B 12 deficiency 1000 mcg IM [id number] 04/01/2024 03/03/2025 Active documented as of this encounter (statuses as of 09/24/2024) Active Problems Problem Noted Date Diagnosed Date [...] Inhaler Self-Management plan Other/Additional Comments: will contact [facility] Exacerbation plan Chest Xray Assessment & [...] 05/10/2009 Overview (12/30/2010): Sees [facility] in [place] for her pain meds - under contract w/ them since 11/2010 - pls do not refill any pain meds through PCP office. Other chronic pain 05/10/2009 Overview (12/30/2010): Chronic CHILDRESS and joint pains since CVA Sees [facility] in [place] for her pain meds - under contract w/ them since 11/2010 - pls do not refill any pain meds through PCP office. OLD MYOCARDIAL INFARCT 03/04/2009 Overview (03/04/2009): Modified by Acute [place] Protocol #5. 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 Study Titile: Genomics Markers for Patients with Cardiovascular Disease Project # [id number] PI: Magdalena Carbone MD Please call [phone] with study related questions CVA 05/02/2006 11/26/2008 Overview (11/26/2008): Modified per CVA protocol #8 ADVANCE DIRECTIVE INFORMATION 12/13/2004 06/16/2024 Overview (12/13/2004): Brochure given to pt. Acute [place] 03/04/2009 Overview (03/04/2009): Modified by [facility] [place] Protocol #5. PURE HYPERCHOLESTEROLEM 07/13 Overview (07/28/2009): Per Lipid Taxonomy. Need for prophylactic hormon e replacement therapy (postmenopausal) 07/28/2020 documented as of this encounter (statuses as of 09/24/2024) Immunizations Name Administration Dates Next Due COVID-19 mRNA, LNP-s, No Pre serve, 2-Dose Series ([employer]) 06/20/2021,10/06/2020,09/15/2020 COVID-19, LNP-s, No Preserve , Sadi-sucrose, Ages 12+ ([employer]) 12/20/2021 COVID-19, MRNA-LNP, PF, 30 M CG/0.3 mL, 12 YRS AND ABOVE, IM ([facility]) 06/24/2024,06/14/2023 Covid-19, Mrna, Lnp-s, Pf, B ivalent, 30 Mcg, IM, 12 yrs and above ([employer]) 06/06/2022 Pneumococcal Conjugate Vacc, 13 Valent (Prevnar) [...] on file documented as of this encounter Plan of Treatment Upcoming Encounters Date Type Department Care Team (Late st Contact Info) Description 10/27/2024 1:20 PM EDT Anticoagulation Family Practice 65 [facility] 293 [facility], [place] [phone] College, Pharmacist [address] [place] [address] 12/18/2024 10:00 AM EDT Office Visit Family Practice 65 [facility] [phone] Abdon Pa, 293 [facility] [place] [address] 03/10/2025 3:00 PM EDT Office Visit Cardiology, [facility] [address] [place] [address] Elton Lee PAChrisC [address] [place] [address] Health Maintenance Due Date Last Done Comments DISCUSS TOBACCO CESSATION (REFER TO SMARTSET #4023) 1953 Fecal Occult Blood Test 1998 Sigmoidoscopy 1998 Colonoscopy 12/27/2020 12/27/2010 Adult Wellness Visit 07/14/2023 07/14/2022, 03/01/20 21 Mammogram 08/23/2023 08/23/2022, 11/2021, 08/16/2021, Additional history exists Cologuard 08/29/2024 08/29/2021, 0 10/2021, 08/15/2021 Colorectal Cancer Screening 08/29/2024 Depression Monitoring 11/12/2024 11/13/2023 GFR 02/17/2025 08/20/2024, 10/11, 09/06/2023, Additional history exists Albumin/Creatinine Ratio 08/19/2025 025, 10/31/2023, 05/17/2022 CKD HGB USE SMARTSET 62303 08/20/202508/20, 08/20/2024, 10/30/2023, Additional history exists CKD PHOS USE SMARTSET 53621 08/20/2025 08/20/2024, 0 10/27/2004 O2 ASSESSMENT COMPLETED [...] D LEVEL ONCE IN A LIFETIME-USE SMARTSET# 47141 Completed 08/20/2024, 10/30/2023, 04/13/2022, Additional history exists [...] Not on filedocumented as of this encounter Advance Directives Documents on File Type Date Recorded 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 Advance Directives and Living Will 06/17/2021 ADVANCE DIRECTIVE / LIVING WILL Power of Service Or Work Dispatcher Chief 06/17/2021 POWER OF A TTORNEY * Full Code (Latest Code Status on File) Date Activated Date Inactivated Comments 09/21/2008 9:29 AM 09/22/2008 3:05 PM Healthcare Agents on File Name Relationship Healthcare Agent Relationship Communication Fanny Fernandez Other - (no specific identity) Health Care Agent (per Health Care Power of Service Or Work Dispatcher Chief document) Care Teams Lining Maker Hand Relationship Specialty Start Date End Date Abdon Pa DO [address] [place] [address] PCP - General Internal Medicine 01/24/24 documented as of this encounter
--- OUTSIDE RECORDS SUMMARY | 2024-11-07 07:13 | External Medical Summary | Summary of Care ---
Author Name Unknown Organization [facility] Address [address] [place] [address] Phone [phone] Care Team Providers Care Elevated Guard Name Role Phone Abdon Pa DO Primary Care Provider [phone] Encounter Details Date Type Department Care Team (Late st Contact Info) Description 09/23/2024 10:15 AM EST Nurse Only Family Practice [address] [phone] College, Nurse [facility] Prac [address] [address] Allergies Active Allergy Reactions Criticality Noted Date Comments Clopidogrel Edema face/lips/tongue High 06/03/2020 Other Reaction(s): SWELLING OF FACE/LIPS/TONGUE Oxycodone Edema Other High 12/05/2022 Percodan 11/23/2000 edema Ticagrelor Edema face/lips/tongue High 07/28/2020 Other Reaction(s): SWELLING OF FACE/LIPS/TONGUE documented as of this encounter (statuses as of 09/26/2024) Medications Aspirin 81 MG Oral Tablet ChewableIndicatio ns:Coronary artery disease involving [place] heart without angina pectoris, unspecified vessel or [...] GASIndications:He art failure, systolic, due to CAD ([facility]),SOB (shortness of breath),COPD, group B, by GOLD 2017 classification ([facility]),Chronic respiratory failure with hypoxia ([facility]) Portable unit thru [employer]. 2 LPM continuous. 1 Each 05/14/20 23 Active Additional Information Patient taking differently: Portable unit thru [employer].4 LPM continuous., Reported on 11/22/2023 Ventolin HFA 108 (90 Base) MCG/ACT Inhalation Aerosol SolutionIndicatio ns:Asthma with COPD (chronic obstructive pulmonary disease) ([facility]) Inhale 2 Puffs by mouth [...] state,Moderate episode of recurrent major depressive disorder ([facility]) Take 1 Tablet by mouth [...] mg per tab)Indications:C oronary artery disease involving [place] heart without angina pectoris, unspecified vessel or [...] mcgIndications:Vitamin B 12 deficiency 1000 mcg IM [id number] 04/01/2024 03/03/2025 Active documented as of this encounter (statuses as of 09/26/2024) Active Problems Problem Noted Date Diagnosed Date [...] Inhaler Self-Management plan Other/Additional Comments: will contact [facility] Exacerbation plan Chest Xray Assessment [...] statin MEDICATION USE AGREEMENT 05/10/2009 Overview (12/30/2010): Sees[facility] in [place] for her pain meds - under contract w/ them since 11/2010 - pls do not refill any pain meds through PCP office. Other chronic pain 05/10/2009 Overview (12/30/2010): Chronic CHILDRESS and joint pains since CVA Sees [facility] in [place] for her pain meds - under contract w/ them since 11/2010 - pls do not refill any pain meds through PCP office. OLD MYOCARDIAL INFARCT 03/04/2009 Overview (03/04/2009): Modified by Acute [place] Protocol #5. 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 Study Titile: Genomics Markers for Patients with Cardiovascular Disease Project # [id number] PI: Magdalena Carbone MD Please call [phone] with study related questions CVA 05/02/2006 11/26/2008 Overview (11/26/2008): Modified per CVA protocol #8 ADVANCE DIRECTIVE INFORMATION 12/13/2004 06/16/2024 Overview (12/13/2004): Brochure given to pt. Acute [place] 03/04/2009 Overview (03/04/2009): Modified by Acute [place] Protocol #5. PURE HYPERCHOLESTEROLEM 07/13 Overview (07/28/2009): Per Lipid Taxonomy. Need for prophylactic hormon e replacement therapy (postmenopausal) 07/28/2020 documented as of this encounter (statuses as of 09/26/2024) Immunizations Name Administration Dates Next Due COVID-19 mRNA, LNP-s, No Pre serve, 2-Dose Series ([employer]) 06/20/2021,10/06/2020,09/15/2020 COVID-19, LNP-s, No Preserve , Sadi-sucrose, Ages 12+ ([employer] [facility]) 12/20/2021 COVID-19, MRNA-LNP, PF, 30 M CG/0.3 mL, 12 YRS AND ABOVE, IM ([employer]) 06/24/2024,06/14/2023 Covid-19, Mrna, Lnp-s, Pf, B ivalent, 30 Mcg, IM, 12 yrs and above ([employer]) 06/06/2022 Pneumococcal Conjugate Vacc, 13 Valent (Prevnar) [...] Progress Notes * Becki Mora LPN - 09/26/2024 8:40 AM EST Pre-Administration Time Out Procedure Performed: Yes Patient [...] 1:20 PM EDT Anticoagulation Family Practice 65 [facility] 293 [place] [address] College, Pharmacist [address] [place] [address] 12/18/2024 10:00 AM EDT Office Visit Family Practice 65 [facility] 293 [place] [address] Abdon Pa, 293 [place] [address] 03/10/2025 3:00 PM EDT Office Visit Cardiology, [facility] 132 [facility] [place] [address] Elton Lee PA-C 132 [facility] [place] [address] Health Maintenance Due Date Last Done Comments DISCUSS TOBACCO CESSATION (REFER TO SMARTSET #3291) 1953 Fecal Occult Blood Test 1998 Sigmoidoscopy 1998 Colonoscopy 12/27/2020 12/27/2010 Adult Wellness Visit 07/14/2023 07/14/2022, 03/01/20 21 Mammogram 08/23/2023 08/23/2022, 0 11/2021, 08/16/2021, Additional history exists Cologuard 08/29/2024 08/29/2021, 010 10/2021, 08/15/2021 Colorectal Cancer Screening 08/29/2024 Depression Monitoring 11/12/2024 11/13/2023 GFR 02/17/2025 08/20/2024, 10/11, 09/06/2023, Additional history exists Albumin/Creatinine Ratio 08/19/2025 025, 10/31/2023, 05/17/2022 CKD HGB USE SMARTSET 81996 08/20/202508/20, 08/20/2024, 10/30/2023, Additional history exists CKD PHOS USE SMARTSET 66288 08/20/2025 08/20/2024, 0 10/27/2004 O2 ASSESSMENT COMPLETED [...] D LEVEL ONCE IN A LIFETIME-USE SMARTSET# 07549 Completed 08/20/2024, 10/30/2023, 04/13/2022, Additional history exists [...] systolic heart failure Coronary artery disease involving [place] coronary artery of [place] heart without angina pectoris Old myocardial infarct Old myocardial infarction Paroxysmal atrial fibrillation (HCC) Atrial fibrillation Dyslipidemia, goal LDL below 70 Other and unspecified hyperlipidemia Gastroesophageal reflux disease without esophagitis Esophageal reflux Adjustment disorder with mixed anxiety and depressed mood 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 S/P angioplasty [...] (Cyanocobalamin) inj 1,000 mcg 1,000 mcg, Intramuscular, [id number], First dose on Sun04/01/24 at 1345, Last dose on Sun02/03/25 at 1345, For 12 dosesIndications:Vitam in B 12 deficiency Given 09/23/2024 10:21 AM EST 1,000 mcg Deltoid Left Upper Given 07/18/2024 1:18 PM EST 1,000 mcg Ar m Left Upper Given 06/24/2024 1:19 PM EST 1,000 mcg Ar m Left Upper documented in this encounter Advance Directives Documents on File Type Date Recorded Patient Jde Developer Expl anation Advance Directives and Living Will 06/17/2021 ADVANCE DIRECTIVE / LIVING WILL Power of Gallery Director 06/17/2021 POWER OF A TTORNEY * Full Code (Latest Code Status on File) Date Activated Date Inactivated Comments 09/21/2008 9:29 AM 09/22/2008 3:05 PM Healthcare Agents on File Name Relationship Healthcare Agent Relationship Communication Fanny Fernandez Other - (no specific identity) Health Care Agent (per Health Care Power of Gallery Director document) Care Teams Elevated Guard Relationship Specialty Start Date End Date Abdon Pa DO [address] [place] [address] PCP - General Internal Medicine 01/24/24 documented as of this encounter
--- OUTSIDE RECORDS SUMMARY | 2024-11-07 07:13 | External Medical Summary | Summary of Care ---
Author Name Unknown Organization [facility] Address [address] [place] [address] Phone [phone] Care Team Providers Care Field Pipelines Supervisor Name Role Phone Abdon Pa DO Primary Care Provider Reason for Visit * Reason Comments Dosage Adjustment In Person (Anticoag Cl inic) Medication Discussion Encounter Details Date Type Department Care Team (Late st Contact Info) Description 09/23/2024 10:30 AM [facility] Pharmacy Family Practice [address] [address] College, Pharmacist [address] [address] Medication management* Allergies Active Allergy Reactions Criticality Noted Date Comments Clopidogrel Edema face/lips/tongue High 06/03/2020 Other Reaction(s): SWELLING OF FACE/LIPS/TONGUE Oxycodone Edema Other High 12/05/2022 Percodan 11/23/2000 edema Ticagrelor Edema face/lips/tongue High 07/28/2020 Other Reaction(s): SWELLING OF FACE/LIPS/TONGUE documented as of this encounter (statuses as of 09/24/2024) Medications Aspirin 81 MG Oral Tablet ChewableIndicatio ns:Coronary artery disease involving [place] heart without angina pectoris, unspecified vessel or [...] GASIndications:He art failure, systolic, due to CAD ([facility]),SOB (shortness of breath),COPD, group B, by GOLD 2017 classification ([facility]),Chronic respiratory failure with hypoxia ([facility]) Portable unit thru [employer]. 2 LPM continuous. 1 Each 05/14/20 23 Active Additional Information Patient taking differently: Portable unit thru [employer].4 LPM continuous., Reported on 11/22/2023 Ventolin HFA 108 (90 Base) MCG/ACT Inhalation Aerosol SolutionIndicatio ns:Asthma with COPD (chronic obstructive pulmonary disease) ([facility]) Inhale 2 Puffs by mouth every [...] state,Moderate episode of recurrent major depressive disorder ([facility]) Take 1 Tablet by mouth at bedtime 100 Tablet 3 5 5:23 PM EST 02/21/20 24 Active busPIRone HCl 5 MG Oral Tablet (Buspar) take one tablet by mouth in the morning and one tablet before bedtime 200 Tablet 3 5 9:11 AM EST 03/05/20 24 Active Famotidine 20 MG Oral Tablet (Pepcid)Emeryo ns:Gastroesophage al reflux disease without esophagitis TAKE [...] mg per tab)Indications:C oronary artery disease involving [place] heart without angina pectoris, unspecified vessel or [...] mcgIndications:Vitamin B 12 deficiency 1000 mcg IM [id number] 04/01/2024 03/03/2025 Active documented as of this [...] COPD, group B, by GOLD 2017 classification 03/08 /2021 Overview: Per COPD GOLD Classification Assessment & [...] Inhaler Self-Management plan Other/Additional Comments: will contact [facility] Exacerbation plan Chest Xray Assessment & Plan [...] MEDICATION USE AGREEMENT 05/10/2009 Overview (12/30/2010): Sees [facility] in [place] for her pain meds - under contract w/ them since 11/2010 - pls do not refill any pain meds through PCP office. Other chronic pain 05/10/2009 Overview (12/30/2010): Chronic CHILDRESS and joint pains since CVA Sees [facility] in [place] for her pain meds - under contract w/ them since 11/2010 - pls do not refill any pain meds through PCP office. OLD MYOCARDIAL INFARCT 03/04/2009 Overview (03/04/2009): Modified by Acute [place] Protocol #5. Assessment & Plan (09/04/2022 8:49 PM EST): No angina Continue above regimen S/P angioplasty with stent 09/21/2008 [facility] current use of 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 0 05/02/2006 Overview (05/14/2017): ICD-10 update of inactive term Anticoagulation management encounter 05/02/2006 Coronary artery disease invo lving [place] heart without angina pectoris Moderate episode of [...] for Patients with Cardiovascular Disease Project # [id number] PI: Magdalena Carbone MD Please call [phone] with study related questions GENOMICS CARDIO RESEARCH OTHER*[id number] 09/21/2008 09/19/2016 Overview (11/26/2009): Renamed Per Clinical Trials Billing Project. Study Titile: Genomics Markers for Patients with Cardiovascular Disease Project # [id number] PI: Magdalena Carbone MD Please call [phone] with study related questions CVA 05/02/2006 11/26/2008 Overview (11/26/2008): Modified per [place] protocol #8 ADVANCE DIRECTIVE INFORMATION 12/13/2004 06/16/2024 Overview (12/13/2004): Brochure given to pt. Acute [place] 03/04/2009 Overview (03/04/2009): Modified by [place] Protocol #5. PURE HYPERCHOLESTEROLEM 07/13 Overview (07/28/2009): Per Lipid Taxonomy. Need for prophylactic hormon e replacement therapy (postmenopausal) 07/28/2020 documented as of this encounter (statuses as of 09/24/2024) Immunizations Name Administration Dates Next Due COVID-19 mRNA, LNP-s, No Pre serve, 2-Dose Series ([employer]) 06/20/2021,10/06/2020,09/15/2020 COVID-19, LNP-s, No Preserve , Sadi-sucrose, Ages 12+ ([employer]) 12/20/2021 COVID-19, MRNA-LNP, PF, 30 M CG/0.3 mL, 12 YRS AND ABOVE, IM ([employer]) 06/24/2024,06/14/2023 Covid-19, Mrna, Lnp-s, Pf, B ivalent, 30 Mcg, IM, 12 yrs and above ([employer]) 06/06/2022 Pneumococcal Conjugate Vacc, 13 Valent (Prevnar) [...] of this encounter Progress Notes * Jami Hope RPh - 09/23/2024 4:43 PM EST CMR completed today in Medication Management encounter (09/23/24). documented in this encounter Plan of Treatment Upcoming Encounters Date Type Department Care Team (Late st Contact Info) Description 10/27/2024 1:20 PM EDT Anticoagulation Family Practice [address], [place] [address], [place] [phone] College, Pharmacist [address] [place] [address] 12/18/2024 10:00 AM EDT Office Visit Family Practice [address] [place] [address] 293 [facility], [place] [address] Abdon Pa, 293 [facility], [place] [address] 03/10/2025 3:00 PM EDT Office Visit Cardiology, [facility] [address] [place] [address] Elton Lee PA-C [address] [place] [address] Health Maintenance Due Date Last Done Comments [...] 025, 10/31/2023, 05/17/2022 CKD HGB USE SMARTSET 93952 08/20/202508/20, 08/20/2024, 10/30/2023, Additional history exists CKD PHOS USE SMARTSET 04575 08/20/2025 08/20/2024, 0 10/27/2004 O2 ASSESSMENT COMPLETED [...] D LEVEL ONCE IN A LIFETIME-USE SMARTSET# 58973 Completed 08/20/2024, 10/30/2023, 04/13/2022, Additional history exists [...] systolic heart failure Coronary artery disease involving [place] coronary artery of [place] heart without angina pectoris Old myocardial infarct Old myocardial infarction Paroxysmal atrial fibrillation (HCC) Atrial fibrillation Dyslipidemia, goal LDL below 70 Other and unspecified hyperlipidemia Gastroesophageal reflux disease without esophagitis Esophageal reflux Adjustment disorder with mixed anxiety and depressed mood [facility] current use of 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 S/P angioplasty [...] Advanced care planning/counseling discussion Other specified counseling Medication management- Primary Encounter for long-term (current) use of other medications documented in this encounter Advance Directives Documents on File Type Date Recorded Patient Multimedia Producer Expl anation Advance Directives and Living Will 06/17/2021 ADVANCE DIRECTIVE / LIVING WILL Power of Brake Mechanic 06/17/2021 POWER OF A TTORNEY * Full Code (Latest Code Status on File) Date Activated Date Inactivated Comments 09/21/2008 9:29 AM 09/22/2008 3:05 PM Healthcare Agents on File Name Relationship Healthcare Agent Relationship Communication Fanny Fernandez Other - (no specific identity) Health Care Agent (per Health Care Power of Brake Mechanic document) Care Teams Field Pipelines Supervisor Relationship Specialty Start Date End Date Abdon Pa DO [address] [facility] [place] [address] PCP - General Internal Medicine 01/24/24 documented as of this encounter
--- OUTSIDE RECORDS SUMMARY | 2024-11-07 07:13 | External Medical Summary | Summary of Care ---
Author Name Unknown Organization [facility] Address [address] [place] [address] Phone [phone] Care Team Providers Care Farm Mechanic Name Role Phone Abdon Pa DO Primary Care Provider [phone] Reason for Visit * Reason Comments Dosage Adjustment In Person (Anticoag Cl inic) Encounter Details Date Type Department Care Team (Late st Contact Info) Description 09/23/2024 10:00 AM EST Anticoagulation Family Practice [facility] [address] [place] [address] College, Pharmacist [address] [address] Anticoagulation management encounter*; Cerebrovascular disease, arteriosclerotic, post-stroke; 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 Allergies Active Allergy Reactions Criticality Noted Date Comments Clopidogrel Edema face/lips/tongue High 06/03/2020 Other Reaction(s): SWELLING OF FACE/LIPS/TONGUE Oxycodone Edema Other High 12/05/2022 Percodan 11/23/2000 edema Ticagrelor Edema face/lips/tongue High 07/28/2020 Other Reaction(s): SWELLING OF FACE/LIPS/TONGUE documented as of this encounter (statuses as of 09/24/2024) Medications Aspirin 81 MG Oral Tablet ChewableIndicatio ns:Coronary artery disease involving [place] heart without angina pectoris, unspecified vessel or [...] failure, systolic, due to CAD ([facility]),SOB (shortness of breath),COPD, group B, by GOLD 2017 classification ([facility]),Chronic respiratory failure with hypoxia ([facility]) Portable unit thru [employer] [facility]. 2 LPM continuous. 1 Each 05/14/20 23 Active Additional Information Patient taking differently: Portable unit thru [employer].4 LPM continuous., Reported on 11/22/2023 Ventolin HFA 108 (90 Base) MCG/ACT Inhalation Aerosol SolutionIndicatio ns:Asthma with COPD (chronic obstructive pulmonary disease) ([facility]) Inhale 2 Puffs by mouth every 4 [...] of recurrent major depressive disorder ([facility]) Take 1 Tablet by mouth at bedtime [...] mg per tab)Indications:C oronary artery disease involving [place] heart without angina pectoris, unspecified vessel or [...] Pain, Severe. 90 Tablet 09/15/19 25 Active Acetaminophen 325 MG Oral Tablet (Tylenol)Indicati ons:Chronic midline low back pain without sciatica Take 2 Tablets by mouth every 8 hours as needed for Pain, Severe or Pain, Moderate. 07/24/20 23 2024 Disconti nued(Med ication List Clean Up) Hospital, Clinic, or Other Facility Administered Medication Ordered Dose Route Frequency Start Date End Date Status vitamin b-12 (Cyanocobalamin) inj 1,000 mcgIndications:Vitamin B 12 deficiency 1000 mcg IM [id number] 04/01/2024 03/03/2025 Active documented as of this [...] Inhaler Self-Management plan Other/Additional Comments: will contact [facility] Exacerbation plan Chest Xray Assessment & [...] MEDICATION USE AGREEMENT 05/10/2009 Overview (12/30/2010): Sees [facility] in [place] for her pain meds - under contract w/ them since 11/2010 - pls do not refill any pain meds through PCP office. Other chronic pain 05/10/2009 Overview (12/30/2010): Chronic CHILDRESS and joint pains since CVA Sees [facility] in [place] for her pain meds - under contract w/ them since 11/2010 - pls do not refill any pain meds through PCP office. OLD MYOCARDIAL INFARCT 03/04/2009 Overview (03/04/2009): Modified by Acute VT Protocol #5. Assessment & Plan (09/04/2022 8:49 PM EST): No angina Continue above regimen S/P angioplasty with stent 09/21/2008 long-term current use of 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 0 05/02/2006 Overview (05/14/2017): ICD-10 update of inactive term Anticoagulation management encounter 05/02/2006 Coronary artery disease invo lving [place] heart without angina pectoris Moderate episode of [...] for Patients with Cardiovascular Disease Project # [id number] PI: Magdalena Carbone MD Please call [phone] with study related questions GENOMICS CARDIO RESEARCH OTHER*[id number] 09/21/2008 09/19/2016 Overview (11/26/2009): Renamed Per Clinical Trials Billing Project. Study Titile: Genomics Markers for Patients with Cardiovascular Disease Project # [id number] PI: Magdalena Carbone MD Please call [phone] with study related questions CVA 05/02/2006 11/26/2008 Overview (11/26/2008): Modified per CVA protocol #8 ADVANCE DIRECTIVE INFORMATION 12/13/2004 06/16/2024 Overview (12/13/2004): Brochure given to pt. Acute VT 03/04/2009 Overview (03/04/2009): Modified by Acute VT Protocol #5. PURE HYPERCHOLESTEROLEM 07/13 Overview (07/28/2009): Per Lipid Taxonomy. Need for prophylactic hormon e replacement therapy (postmenopausal) 07/28/2020 documented as of this encounter (statuses as of 09/24/2024) Immunizations Name Administration Dates Next Due COVID-19 mRNA, LNP-s, No Pre serve, 2-Dose Series ([employer]) 06/20/2021,10/06/2020,09/15/2020 COVID-19, LNP-s, No Preserve , Sadi-sucrose, [...] 08/27/2023 Does the household have a re lar source of income? (Household - for ages [...] this encounter Progress Notes * Jami Hope, [facility] - 09/23/2024 10:14 AM EST Medication Therapy Disease Management - Anticoagulation Patient: Malia Nice | : 1955 Subjective Patient-Reported Symptoms: Patient Findings Negatives: Signs/symptoms of thrombosis, Signs/symptoms of bleeding, Change in health, Change in alcohol use, Change in activity, Upcoming invasive procedure, Missed doses, Extra doses, Change in medications, Change in diet/appetite, Bruising Objective Current Warfarin Dose As of 09/23/2024 Warfarin maintenance plan: 2.5 mg (2.5 mg x 1) every day INR Result As of 09/23/2024 INR goal: 2.0-3.0 INR used for dosin.0 (09/23/2024) Assessment & Plan Warfarin Plan As of 09/23/2024 Full warfarin instructions: 2.5 mg every day No change documented: Jami Hoep [facility] Next INR check: 10/27/2024 Repeat PT/INR in 5 week(s) Weekly dose: not changed Additional Dosing Information: I spent a total of 10-19 minutes (exact time 10 mins) on the date of service in preparation, delivery, and documentation of the care provided to Malia Nice excluding any time spent in the performance of separately billed services or time spent by another provider/QHP. Jami Cedillo [facility] Clinical Pharmacist 09/23/2024, 10:14 AM documented in this encounter Plan of Treatment Upcoming Encounters Date Type Department Care Team (Late st Contact Info) Description 10/27/2024 1:20 PM EDT Anticoagulation Family Practice [facility] [address] [facility] [place] [address] College, Pharmacist [address] [place] [address] 12/18/2024 10:00 AM EDT Office Visit Family Practice [facility] [address] [facility], [place] [address] Abdon Pa DO [address] [facility], [place] [address] 03/10/2025 3:00 PM EDT Office Visit Cardiology, [facility] [address] [facility] [address] Elton Lee PA-C [address] [place] [address] Health Maintenance Due Date Last Done Comments DISCUSS TOBACCO CESSATION (REFER TO SMARTSET #9398) 1955 Fecal Occult Blood Test 1998 Sigmoidoscopy 1998 Colonoscopy 12/27/2020 12/27/2010 Adult Wellness Visit 07/14/2023 07/14/2022, 03/01/20 21 Mammogram 08/23/2023 08/23/2022, 11/2021, 08/16/2021, Additional history exists Cologuard 08/29/2024 08/29/2021, 10/2021, 08/15/2021 Colorectal Cancer Screening 08/29/2024 Depression Monitoring 11/12/2024 11/13/2023 GFR 02/17/2025 08/20/2024, 10/11, 09/06/2023, Additional history exists Albumin/Creatinine Ratio 08/19/2025 025, 10/31/2023, 05/17/2022 CKD HGB USE SMARTSET 11702 08/20/202508/20, 08/20/2024, 10/30/2023, Additional history exists CKD PHOS USE SMARTSET 20445 08/20/2025 08/20/2024, 0 10/27/2004 O2 ASSESSMENT COMPLETED [...] D LEVEL ONCE IN A LIFETIME-USE SMARTSET# 14161 Completed 08/20/2024, 10/30/2023, 04/13/2022, Additional history exists [...] Diagnosis Comments INR FINGERSTICK, POINT OF CARE STAT 09/23/2024 10:15 AM EST Cerebrovascular disease, arteriosclerotic, post-stroke Anticoagulation management encounter 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 documented in this encounter Results * INR FINGERSTICK, POINT OF CARE (09/23/2024 10:15 AM EST) Fingerstick INR 2.0 INR 10:23 AM EST [facility] 56-21 Blood 09/23/2024 10:1 5 AM EST 09/23/2024 10:23 AM EST Narrative [facility] 56-21 - 09/23/2024 10:23 AM EST Therapeutic ranges for non-operative patients: Prophylaxsis/treatment of DVT: (Range:2.0-3.0) Treatment of pulmonary embolism:(Range:2.0-3.0) Prevention of systemic embolism from: -tissue heart valves -acute myocardial infarction -valvular heart disease -atrial fibrillation (Range: 2.0-3.0) Mechanical prosthetic valves: (Range: 2.5-3.5) Jami Roche [facility] LAB PO INT OF CARE TEST DOCKED DEVICE UNSOLICITED RESULTS Final Result Performing Organization Address City/State/[facility] Co de Phone Number [facility] [phone] [place] [place] [address], [facility] documented in this encounter Visit Diagnoses Diagnosis Advanced care planning/counseling discussion- Primary Other specified counseling COPD, group B, by GOLD 2017 classification ([facility]) Age-related osteoporosis without current pathological fracture Senile osteoporosis Cerebrovascular disease, arteriosclerotic, post-stroke Cerebral atherosclerosis Chronic systolic heart failure (HCC) Chronic systolic heart failure Coronary artery disease involving [place] coronary artery of [place] heart without angina pectoris Old myocardial infarct Old myocardial infarction Paroxysmal atrial fibrillation (HCC) Atrial fibrillation Dyslipidemia, goal LDL below 70 Other and unspecified hyperlipidemia Gastroesophageal reflux disease without esophagitis Esophageal reflux Adjustment disorder with mixed anxiety and depressed mood long-term current use of 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 S/P angioplasty with stent Postsurgical percutaneous transluminal coronary angioplasty status S/P aortic valve replacement Heart valve replaced by other means 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 Speech and language deficit, unspecified, late effect of cerebrovascular disease COPD, group B, by GOLD 2017 classification ([facility])- Primary Heart failure, systolic, due to CAD ([facility]) Unspecified systolic heart failure Paroxysmal atrial fibrillation (HCC) Atrial fibrillation Cerebrovascular disease, arteriosclerotic, post-stroke Cerebral atherosclerosis Advanced care planning/counseling discussion Other specified counseling Anticoagulation management encounter- Primary Encounter for therapeutic drug monitoring Cerebrovascular disease, arteriosclerotic, post-stroke Cerebral atherosclerosis long-term current use of 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 documented in this encounter Advance Directives Documents on File Type Date Recorded Patient Install And Repair Technician Expl anation Advance Directives and Living Will 06/17/2021 ADVANCE DIRECTIVE / LIVING WILL Power of Dress Finisher 06/17/2021 POWER OF A TTORNEY * Full Code (Latest Code Status on File) Date Activated Date Inactivated Comments 09/21/2008 9:29 AM 09/22/2008 3:05 PM Healthcare Agents on File Name Relationship Healthcare Agent Relationship Communication Fanny Fernandez Other - (no specific identity) Health Care Agent (per Health Care Power of Dress Finisher document) Care Teams Farm Mechanic Relationship Specialty Start Date End Date Abdon Pa DO [address] [facility] [address] P[facility] - General Internal Medicine 01/24/24 documented as of this encounter
--- OUTSIDE RECORDS SUMMARY | 2024-11-07 07:13 | External Medical Summary ---
Author Name Unknown Address Unknown Organization : Laboratory Report Ordering Provider Test Date Status ROGELIO VALVERDE 09/23/2024 10:15:37 Final Therapeutic ranges for non-o perative patients:
Prophylaxsis/treatment of DVT: (Range:2.0-3.0)
Treatment of pulmonary embolism:(Range:2.0-3.0)
Prevention of systemic embolism from:
-tissue heart valves
-acute myocardial infarction
-valvular heart disease
-atrial fibrillation
(Range: 2.0-3.0)
Mechanical prosthetic valves: (Range: 2.5-3.5) Observation Date Value Abnormality Reference (Units ) Status INR in Capillary blood by Coagulation assay 09/23/2024 10:15:37 2.0 (INR) Final Performing Location
--- OUTSIDE RECORDS SUMMARY | 2024-11-07 07:13 | External Medical Summary | Summary of Care ---
Author Name Unknown Organization [facility] Address [address] [place] [address] Phone [phone] Care Team Providers Care Fashion Model Name Role Phone Kayce Pa DO Primary Care Provider [phone] Reason for Visit * Reason Onset Date Comments Medication Refill 09/13/2024 Encounter Details Date Type Department Care Team (Late st Contact Info) Description 09/13/2024 Refill Family Practice [address] [place] [address] [place] [phone] Kayce Pa DO [address] [place], [place] [id number] Lumbar degenerative disc disease Allergies Active Allergy Reactions Criticality Noted Date Comments Clopidogrel Edema face/lips/tongue High 06/03/2020 Other Reaction(s): SWELLING OF FACE/LIPS/TONGUE Oxycodone Edema Other High 12/05/2022 Percodan 11/23/2000 edema Ticagrelor Edema face/lips/tongue High 07/28/2020 Other Reaction(s): SWELLING OF FACE/LIPS/TONGUE documented as of this encounter (statuses as of 09/15/2024) Medications Aspirin 81 MG Oral Tablet ChewableIndicatio ns:Coronary artery disease involving [place] heart without angina pectoris, unspecified vessel or lesion type Take 1 Tablet by mouth daily. with food. 100 Tablet 5 07/12/20 21 Active Vitamin D3 50 MCG (2000 UT) Oral Capsule Take 1 Capsule by mouth in the morning. 30 Capsule 01/13/20 Active Calcium 500 MG Oral Tablet Take 1 Tablet by mouth in the morning. With food.. 100 Tablet 11 01/13/20 22 Active oxygen IN GASIndications:He art failure, systolic, due to CAD ([facility]),SOB (shortness of breath),COPD, group B, by GOLD 2017 classification ([facility]),Chronic respiratory failure with hypoxia ([facility]) Portable unit thru [employer]. 2 LPM continuous. 1 Each 05/14/20 23 Active Additional Information Patient taking differently: Portable unit thru [employer].4 LPM continuous., Reported on 11/22/2023 Ventolin HFA 108 (90 Base) MCG/ACT Inhalation Aerosol SolutionIndicatio ns:Asthma with COPD (chronic obstructive pulmonary disease) ([facility]) Inhale 2 Puffs by mouth every 4 hours as needed for Cough, Wheezing or Shortness of Breath. 54 g 3 3 4:06 PM EDT 05/15/20 23 Active Acetaminophen 325 MG Oral Tablet (Tylenol)Indicati ons:Chronic midline low back pain without sciatica Take 2 Tablets by mouth every 8 hours as needed for Pain, Severe or Pain, Moderate. 07/24/20 23 Active Alendronate Sodium 70 MG Oral [...] state,Moderate episode of recurrent major depressive disorder ([facility]) Take 1 Tablet by mouth at bedtime [...] DIRECTED BY ANTICOAGULATION PHARMACIST 100 Tablet 1 4 5:05 PM EDT 06/13/20 24 Active Entresto 97-103 MG Oral Tablet (sacubitril-valsa rtan 97-103 mg per tab)Indications:C oronary artery disease involving [place] heart without angina pectoris, unspecified vessel or lesion type Take 1 Tablet by mouth in the morning and 1 Tablet before bedtime. 180 Tablet 3 4 5:53 PM EST 06/23/20 24 Active Ondansetron HCl [...] Pain, Severe. 90 Tablet 09/15/19 25 Active HYDROcodone-Aceta minophen 7.5-325 MG Oral TabletIndications :Lumbar degenerative disc disease Take 1 Tablet by mouth every 8 hours as needed for Pain, Severe. 90 Tablet 08/11/20 24 2024 Disconti nued(Ref ill) Hospital, Clinic, or Other Facility Administered Medication Ordered Dose Route Frequency Start Date End Date Status vitamin b-12 (Cyanocobalamin) inj 1,000 mcgIndications:Vitamin B 12 deficiency 1000 mcg IM [id number] 04/01/2024 03/03/2025 Active documented as of this encounter (statuses as of 09/15/2024) Active Problems Problem Noted Date Diagnosed Date [...] Inhaler Self-Management plan Other/Additional Comments: will contact [facility] Exacerbation plan Chest Xray Assessment [...] MEDICATION USE AGREEMENT 05/10/2009 Overview (12/30/2010): Sees [facility] in [place] for her pain meds - under contract w/ them since 11/2010 - pls do not refill any pain meds through PCP office. Other chronic pain 05/10/2009 Overview (12/30/2010): Chronic CHILDRESS and joint pains since CVA Sees [facility] in [place] for her pain meds - under contract w/ them since 11/2010 - pls do not refill any pain meds through PCP office. OLD MYOCARDIAL INFARCT 03/04/2009 Overview (03/04/2009): Modified by Acute HI Protocol #5. 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 Study Titile: Genomics Markers for Patients with Cardiovascular Disease Project # [id number] PI: Magdalena Carbone MD Please call [phone] with study related questions CVA 05/02/2006 11/26/2008 Overview (11/26/2008): Modified per CVA protocol #8 ADVANCE DIRECTIVE INFORMATION 12/13/2004 06/16/2024 Overview (12/13/2004): Brochure given to pt. Acute HI 03/04/2009 Overview (03/04/2009): Modified by Acute HI Protocol #5. PURE HYPERCHOLESTEROLEM 07/13 Overview (07/28/2009): Per Lipid Taxonomy. Need for prophylactic hormon e replacement therapy (postmenopausal) 07/28/2020 documented as of this encounter (statuses as of 09/15/2024) Immunizations Name Administration Dates Next Due COVID-19 mRNA, LNP-s, No Pre serve, 2-Dose Series ([employer]) 06/20/2021,10/06/2020,09/15/2020 COVID-19, LNP-s, No Preserve , Sadi-sucrose, Ages 12+ (Pfizer) 12/20/2021 COVID-19, MRNA-LNP, PF, 30 M CG/0.3 mL, 12 YRS AND ABOVE, IM (PFIZER-Comirnaty) 06/24/2024,06/14/2023 Covid-19, Mrna, Lnp-s, Pf, B ivalent, 30 Mcg, IM, 12 yrs and above ([employer] [facility]) 06/06/2022 Pneumococcal Conjugate Vacc, 13 Valent (Prevnar) [...] Telephone Encounter - Kayce Pa DO - 09/15/2024 8:01 AM ESTSigned Prescriptions: Disp Refills HYDROcodone-Acetaminophen 7.5-325 MG Oral *90 Tab*0 Sig: Take 1 Tablet by mouth every 8 hours as needed for Pain, Severe.Authorizing Provider: KAYCE PA------- * Telephone Encounter - Kayce Pa DO - 09/15/2024 8:01 AM EST I have reviewed the patients controlled substance dispensing history in the Prescription Drug Monitoring Program in compliance with the [facility] regulations before prescribing a controlled substance. Last Tox Screen Results: Results for orders placed or performed in visit on 08/19/24 PAIN MANAGEMENT DRUG PANEL, URINE W/ INTERPRETATION Result Value Compliance Interpretation Based on the medication information provided: [...] Screen, U Refer to confirmation results (A) Valid Interpretation Normal Creatinine, U 124 Narrative Cutoff [...] results can be found in Results Review. * Telephone Encounter - Jami Hope, [facility] - 09/15/2024 8:00 AM ESTPending Prescriptions: Disp Refills HYDROcodone-Acetaminophen 7.5-325 MG Oral *90 Tab*0 Sig: Take 1 Tablet by mouth every 8 hours as needed for Pain, Severe. * Telephone Encounter - Jami Hope [facility] - 09/15/2024 7:58 AM EST I have reviewed the patients controlled substance dispensing history in the Prescription Drug Monitoring Program in compliance with the [facility] regulations before prescribing a controlled substance. PDMP checked on 09/15/2024. Pending Prescriptions: Disp Refills HYDROcodone-Acetaminophen 7.5-325 MG Oral*90 Tab*0 Sig: Take 1 Tablet by mouth every 8 hours as needed for Pain, Severe. Last Visit: 08/20/2024 (in office), Visit date not found (telemedicine) Next Visit: 09/23/2024 Date medication was last filled: 08/12/24 Date medication is due for refill: 09/11/24 Pharmacy: [id number] Is this request for a controlled substance? Yes and Urine Drug Screen was completed Toxicology results: Results for orders placed or performed in visit on 08/19/24 PAIN MANAGEMENT DRUG PANEL, URINE W/ INTERPRETATION Result Value Compliance Interpretation Based on the medication information provided: [...] Screen, U Refer to confirmation results (A) Valid Interpretation Normal Creatinine, U 124 Narrative Cutoff [...] Roche, Pharm D, BCACP Clinical Pharmacist [address] [facility] - Medication Therapy Disease Management [facility] 09/15/2024, 8:00 AM Ph. [phone] documented in this encounter Plan of Treatment Upcoming Encounters Date Type Department Care Team (Late st Contact Info) Description 09/23/2024 10:00 AM EST Anticoagulation Family Practice 65 [facility] [address] [place] [id number] College, Pharmacist [address] [address] 10/13/2024 3:00 PM EST Office Visit Cardiology, [facility] [address] [facility] [place] [address] Elton Lee PA-C [address] [facility] [place] [address] 12/18/2024 10:00 AM EDT Office Visit Family Practice [address] [facility] [address] [place] [id number] Kayce Pa DO 293 [place] [address] Health Maintenance Due Date Last Done Comments [...] 025, 10/31/2023, 05/17/2022 CKD HGB USE SMARTSET 43821 08/20/202508/20, 08/20/2024, 10/30/2023, Additional history exists CKD PHOS USE SMARTSET 32817 08/20/2025 08/20/2024, 0 10/27/2004 O2 ASSESSMENT COMPLETED [...] D LEVEL ONCE IN A LIFETIME-USE SMARTSET# 41874 Completed 08/20/2024, 10/30/2023, 04/13/2022, Additional history exists [...] COPD, group B, by GOLD 2017 classification ([facility]) Age-related osteoporosis without current pathological fracture Senile osteoporosis Cerebrovascular disease, arteriosclerotic, post-stroke Cerebral atherosclerosis Chronic systolic heart failure (HCC) Chronic systolic heart failure Coronary artery disease involving [place] coronary artery of [place] heart without angina pectoris Old myocardial infarct Old myocardial infarction Paroxysmal atrial fibrillation (HCC) Atrial fibrillation Dyslipidemia, goal LDL below 70 Other and unspecified hyperlipidemia Gastroesophageal reflux disease without esophagitis Esophageal reflux Adjustment disorder with mixed anxiety and depressed mood FDC current use of 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 S/P angioplasty [...] Documents on File Type Date Recorded Patient Debeaker Expl anation Advance Directives and Living Will 06/17/2021 ADVANCE DIRECTIVE / LIVING WILL Power of Management Accounts Manager 06/17/2021 POWER OF A TTORNEY * Full Code (Latest Code Status on File) Date Activated Date Inactivated Comments 09/21/2008 9:29 AM 09/22/2008 3:05 PM Healthcare Agents on File Name Relationship Healthcare Agent Relationship Communication Fanny Fernandez Other - (no specific identity) Health Care Agent (per Health Care Power of Management Accounts Manager document) Care Teams Fashion Model Relationship Specialty Start Date End Date Kayce Pa DO [address] [place] [address] PCP - General Internal Medicine 01/24/24 documented as of this encounter
--- OUTSIDE RECORDS SUMMARY | 2024-11-07 07:13 | External Medical Summary | Summary of Care ---
Author Name Unknown Organization [facility] Address [address] [place] [address] Phone [phone] Care Team Providers Care Setter Automatic Spinning Lathe Name Role Phone Abdon Pa DO Primary Care Provider [phone] Reason for Visit * Reason Onset Date Comments Medication Refill 09/13/2024 Encounter Details Date Type Department Care Team (Late st Contact Info) Description 09/13/2024 Refill Family Practice [address] [place] [address] [place] [phone] Abdon Pa DO [address] [place], [place] [id number] Heart failure, systolic, due to CAD (HCC) Allergies Active Allergy Reactions Criticality Noted Date Comments Clopidogrel Edema face/lips/tongue High 06/03/2020 Other Reaction(s): SWELLING OF FACE/LIPS/TONGUE Oxycodone Edema Other High 12/05/2022 Percodan 11/23/2000 edema Ticagrelor Edema face/lips/tongue High 07/28/2020 Other Reaction(s): SWELLING OF FACE/LIPS/TONGUE documented as of this encounter (statuses as of 09/15/2024) Medications Aspirin 81 MG Oral Tablet ChewableIndicatio ns:Coronary artery disease involving [place] heart without angina pectoris, unspecified vessel or [...] GASIndications:He art failure, systolic, due to CAD ([facility]),SOB (shortness of breath),COPD, group B, by GOLD 2017 classification ([facility]),Chronic respiratory failure with hypoxia ([facility]) Portable unit thru [employer]. 2 LPM continuous. 1 Each 05/14/20 23 Active Additional Information Patient taking differently: Portable unit thru [employer].4 LPM continuous., Reported on 11/22/2023 Ventolin HFA 108 (90 Base) MCG/ACT Inhalation Aerosol SolutionIndicatio ns:Asthma with COPD (chronic obstructive pulmonary disease) ([facility]) Inhale 2 Puffs by mouth every [...] state,Moderate episode of recurrent major depressive disorder ([facility]) Take 1 Tablet by mouth at [...] mg per tab)Indications:C oronary artery disease involving [place] heart without angina pectoris, unspecified vessel or [...] mcgIndications:Vitamin B 12 deficiency 1000 mcg IM [id number] 04/01/2024 03/03/2025 Active documented as of this [...] MEDICATION USE AGREEMENT 05/10/2009 Overview (12/30/2010): Sees [facility] in [place] for her pain meds - under contract w/ them since 11/2010 - pls do not refill any pain meds through PCP office. Other chronic pain 05/10/2009 Overview (12/30/2010): Chronic CHILDRESS and joint pains since CVA Sees [facility] in [place] for her pain meds - under contract w/ them since 11/2010 - pls do not refill any pain meds through PCP office. OLD MYOCARDIAL INFARCT 03/04/2009 Overview (03/04/2009): Modified by Acute ID Protocol #5. Assessment & Plan (09/04/2022 8:49 PM EST): No angina Continue above regimen S/P angioplasty with stent 09/21/2008 support team assoc current use of 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 0 05/02/2006 Overview (05/14/2017): ICD-10 update of inactive term Anticoagulation management encounter 05/02/2006 Coronary artery disease invo lving [place] heart without angina pectoris Moderate episode of [...] # PI: Magdalena Carbone MD Please call [phone] with study related questions GENOMICS CARDIO RESEARCH OTHER*[id number] 09/21/2008 09/19/2016 Overview (11/26/2009): Renamed Per Clinical Trials Billing Project. Study Titile: Genomics Markers for Patients with Cardiovascular Disease Project # PI: Magdalena Carbone MD Please call [phone] with study related questions CVA 05/02/2006 11/26/2008 Overview (11/26/2008): Modified per CVA protocol #8 ADVANCE DIRECTIVE INFORMATION 12/13/2004 06/16/2024 Overview (12/13/2004): Brochure given to pt. Acute ID 03/04/2009 Overview (03/04/2009): Modified by Acute ID Protocol #5. PURE HYPERCHOLESTEROLEM 07/13 Overview (07/28/2009): Per Lipid Taxonomy. Need for prophylactic hormon e replacement therapy (postmenopausal) 07/28/2020 documented as of this encounter (statuses as of 09/15/2024) Immunizations Name Administration Dates Next Due COVID-19 mRNA, LNP-s, No Pre serve, 2-Dose Series ([employer]) 06/20/2021,10/06/2020,09/15/2020 COVID-19, LNP-s, No Preserve , Sadi-sucrose, [...] No 08/27/2023 Does the household have a [facility] source of income? (Household - for [...] Miscellaneous Notes * Telephone Encounter - Jami Hope, [facility] - 09/15/2024 8:03 AM EST DUplicate request - already filled at [facility] on 09/09/24 Jami Roche, Pharm D, BCACP Clinical Pharmacist [address] - Medication Therapy Disease Management Clinic 09/15/2024, 8:03 AM Ph. [phone] documented in this encounter Plan of Treatment Upcoming Encounters Date Type Department Care Team (Late st Contact Info) Description 09/23/2024 10:00 AM EST Anticoagulation Family Practice 65 [facility] [address] [facility], [place] [phone] College, Pharmacist 65 [facility] 293 [place] [address] 10/13/2024 3:00 PM EST Office Visit Cardiology, [facility] [address] [place] [address] Elton Lee PA-C [address] [place] [address] 12/18/2024 10:00 AM EDT Office Visit Family Practice 65 [facility] [address] [facility], [place] [phone] Abdon Pa, 293 [place] [address] Health Maintenance Due Date Last Done Comments DISCUSS TOBACCO CESSATION (REFER TO SMARTSET #1136) 1953 Fecal Occult Blood Test 1998 Sigmoidoscopy 1998 Colonoscopy 12/27/2020 12/27/2010 Adult Wellness Visit 07/14/2023 07/14/2022, 03/01/20 21 Mammogram 08/23/2023 08/23/2022, 11/2021, 08/16/2021, Additional history exists Cologuard 08/29/2024 08/29/2021, 10/2021, 08/15/2021 Colorectal Cancer Screening 08/29/2024 Depression Monitoring 11/12/2024 11/13/2023 GFR 02/17/2025 08/20/2024, 10/11, 09/06/2023, Additional history exists Albumin/Creatinine Ratio 08/19/2025 025, 10/31/2023, 05/17/2022 CKD HGB USE SMARTSET 97984 08/20/202508/20, 08/20/2024, 10/30/2023, Additional history exists CKD PHOS USE SMARTSET 13252 08/20/2025 08/20/2024, 0 10/27/2004 O2 ASSESSMENT COMPLETED [...] D LEVEL ONCE IN A LIFETIME-USE SMARTSET# 59216 Completed 08/20/2024, 10/30/2023, 04/13/2022, Additional history exists [...] systolic heart failure Coronary artery disease involving [place] coronary artery of [place] heart without angina pectoris Old myocardial infarct Old myocardial infarction Paroxysmal atrial fibrillation (HCC) Atrial fibrillation Dyslipidemia, goal LDL below 70 Other and unspecified hyperlipidemia Gastroesophageal reflux disease without esophagitis Esophageal reflux Adjustment disorder with mixed anxiety and depressed mood custodial current use of 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 S/P angioplasty with stent Postsurgical percutaneous transluminal coronary angioplasty status S/P aortic valve replacement Heart valve replaced by other means 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 Speech and language deficit, unspecified, late effect of cerebrovascular disease COPD, group B, by GOLD 2017 classification ([facility])- Primary Heart failure, systolic, due to CAD (HCC) Unspecified systolic heart failure Paroxysmal atrial fibrillation (HCC) Atrial fibrillation Cerebrovascular disease, arteriosclerotic, post-stroke Cerebral atherosclerosis Advanced care planning/counseling discussion Other specified counseling Heart failure, systolic, due to CAD (HCC) Unspecified systolic heart failure documented in this encounter Advance Directives Documents on File Type Date Recorded Patient Metal Finish Inspector Expl anation Advance Directives and Living Will 06/17/2021 ADVANCE DIRECTIVE / LIVING WILL Power of Power Regulator 06/17/2021 POWER OF A TTORNEY * Full Code (Latest Code Status on File) Date Activated Date Inactivated Comments 09/21/2008 9:29 AM 09/22/2008 3:05 PM Healthcare Agents on File Name Relationship Healthcare Agent Relationship Communication Fanny Fernandez Other - (no specific identity) Health Care Agent (per Health Care Power of Power Regulator document) Care Teams Setter Automatic Spinning Lathe Relationship Specialty Start Date End Date Abdon Pa DO [address] [place] [address] PCP - General Internal Medicine 01/24/24 documented as of this encounter
--- OUTSIDE RECORDS SUMMARY | 2024-11-07 07:14 | External Medical Summary | Summary of Care ---
Author Name Unknown Organization [facility] Address [address] [place] [address] Phone [phone] Care Team Providers Care Gang Vibrator Operator Name Role Phone Abdon Pa DO Primary Care Provider [phone] Reason for Visit * Reason Comments Follow Up Encounter Details Date Type Department Care Team (Latest Contact Info) Description 08/20/2024 9:20 AM EST Office Visit Family Practice [address] [facility] [place] [address] [place] [address] Abdon Pa DO [address] [place] [address] Heart failure, systolic, due to CAD (HCC)*; COPD, group B, by GOLD 2017 classification (HCC); Moderate episode of recurrent major depressive disorder (HCC); Paroxysmal atrial fibrillation (HCC); Chronic hypoxemic respiratory failure (HCC); Anxiety state; Hypertension with goal blood pressure less than 140/80; Age-related osteoporosis without current pathological fracture; Dyslipidemia, goal LDL below 70; Chronic kidney disease, stage 3a (HCC); Gastroesophageal reflux disease without esophagitis; Coronary artery disease involving [place] coronary artery of [place] heart without angina pectoris; S/P aortic valve replacement; 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; Special screening for malignant neoplasms, colon; B12 deficiency; Vitamin D deficiency Allergies Active Allergy Reactions Criticality Noted Date Comments Clopidogrel Edema face/lips/tongue High 06/03/2020 Other Reaction(s): SWELLING OF FACE/LIPS/TONGUE Oxycodone Edema Other High 12/05/2022 Percodan 11/23/2000 edema Ticagrelor Edema face/lips/tongue High 07/28/2020 Other Reaction(s): SWELLING OF FACE/LIPS/TONGUE documented as of this encounter (statuses as of 08/20/2024) Medications Aspirin 81 MG Oral Tablet ChewableIndicati ons:Coronary artery disease involving [place] heart without angina pectoris, unspecified vessel or lesion type Take 1 Tablet by mouth daily. with food. 100 Tablet 5 Active Vitamin D3 50 MCG (2000 UT) Oral Capsule Take 1 Capsule by mouth in the morning. 30 Capsule Active Calcium 500 MG Oral Tablet Take 1 Tablet by mouth in the morning. With food.. 100 Tablet Active oxygen IN GASIndications:H eart failure, systolic, due to CAD ([facility]),SOB (shortness of breath),COPD, group B, by GOLD 2017 classification ([facility]),Chronic respiratory failure with hypoxia ([facility]) Portable unit thru [employer]. 2 LPM continuous. 1 Each 023 Active Additional Information Patient taking differently: Portable unit thru [facility].4 LPM continuous., Reported on 11/22/2023 Ventolin HFA 108 (90 Base) MCG/ACT Inhalation Aerosol SolutionIndicati ons:Asthma with COPD (chronic obstructive pulmonary disease) ([facility]) Inhale 2 Puffs by mouth every 4 hours as needed for Cough, Wheezing or Shortness of Breath. 54 g 3 05/17/20 23 4:06 PM EDT 023 Active Acetaminophen 325 MG Oral Tablet (Tylenol)Indicat ions:Chronic midline low back pain without sciatica Take 2 Tablets by mouth every 8 hours as needed for Pain, Severe or Pain, Moderate. 023 Active Alendronate Sodium 70 MG Oral Tablet (Fosamax)Indicat ions:Age-related osteoporosis without current pathological fracture TAKE 1 TABLET BY MOUTH ONCE A WEEK WITH 8 OZ OF WATER, AT LEAST 30 MINUTES BEFORE FIRST MEAL OF THE DAY. DO NOT LIE DOWN FOR 30 MINUTES AFTER TAKING 15 Tablet 3 06/07/20 24 8:14 AM EDT 024 2024 Active Furosemide 20 MG Oral Tablet (Lasix)Indicatio ns:Heart failure, systolic, due to CAD (HCC) Take 1 Tablet by mouth once a day on Sunday, Sunday, and Sunday only. 30 Tablet 5 024 Active hydrOXYzine HCl 25 MG Oral Tablet Take 1 Tablet by mouth 3 times a day as needed for Itching. 180 Tablet 2 07/14/20 24 12:55 PM EST 024 Active Mirtazapine 45 MG Oral Tablet (Remeron)Indicat ions:Anxiety state,Moderate episode of recurrent major depressive disorder (HCC) Take 1 Tablet by mouth at bedtime 100 Tablet 3 06/04/20 24 1:43 PM EDT 024 Active busPIRone HCl 5 MG Oral Tablet (Buspar) take one tablet by mouth in the morning and one tablet before bedtime 200 Tablet 3 06/03/20 24 8:44 AM EDT 024 Active Atorvastatin Calcium 40 MG Oral Tablet (Lipitor)Indicat ions:Dyslipidemi a, goal LDL below 70 TAKE ONE TABLET BY MOUTH EVERY DAY 90 Tablet 2 06/27/20 24 10:51 AM EST 024 2024 Active Famotidine 20 MG Oral Tablet (Pepcid)Indicati ons:Gastroesopha geal reflux disease without esophagitis TAKE ONE TABLET BY MOUTH EVERY MORNING 100 Tablet 3 07/12/20 24 8:57 AM EST 024 2024 Active Desvenlafaxine Succinate ER 100 MG Oral Tablet Extended Release 24 Hour (Pristiq)Indicat ions:Moderate episode of recurrent major depressive disorder (HCC) Take 1 Tablet by mouth in the morning. 90 Tablet 1 08/04/20 24 9:26 AM EST 024 Active Pantoprazole Sodium 40 MG Oral Tablet Delayed Release (Protonix)Indica tions:Gastroesop hageal reflux disease without esophagitis TAKE ONE TABLET BY MOUTH TWICE A DAY in the MORNING AND BEDTIME 200 Tablet 3 05/20/20 24 7:29 AM EDT 024 Active amLODIPine Besylate 2.5 MG Oral Tablet (Norvasc)Indicat ions:HTN, goal below 130/80 Take 1 Tablet by mouth daily. 100 Tablet 3 06/03/20 24 7:00 AM EDT 024 Active Nitroglycerin 0.4 MG Sublingual Tablet Sublingual (Nitrostat)Indic ations:Coronary atherosclerosis, S/P angioplasty with stent ONE TAB UNDER TONGUE EVERY 5MIN X3 NEEDED FOR CHEST PAIN, MAX OF 3 DOSES 25 Tablet 1 024 Active Warfarin Sodium 2.5 MG Oral Tablet (Coumadin)Indica tions:History of artificial heart valve Take 1 Tablet by mouth every evening. OR DIRECTED BY ANTICOAGULATION PHARMACIST 100 Tablet 1 06/13/20 24 5:05 PM EDT 024 Active Entresto 97-103 MG Oral Tablet (sacubitril-vals conner 97-103 mg per tab)Indications: Coronary artery disease involving [place] heart without angina pectoris, unspecified vessel or lesion type Take 1 Tablet by mouth in the morning and 1 Tablet before bedtime. 180 Tablet 3 06/24/20 24 5:53 PM EST 024 Active Ondansetron HCl 4 MG Oral Tablet (Zofran)Indicati ons:Nausea TAKE ONE TABLET BY MOUTH EVERY 8 HOURS NEEDED FOR NAUSEA 30 Tablet 07/01/20 24 1:50 PM EST 024 Active HYDROcodone-Acet aminophen 7.5-325 MG Oral TabletIndication s:Lumbar degenerative disc disease Take 1 Tablet by mouth every 8 hours as needed for Pain, Severe. 90 Tablet 024 Active Metoprolol Succinate ER 25 MG Oral Tablet Extended Release 24 Hour (toPROL XL)Indications:P aroxysmal atrial fibrillation (HCC) TAKE ONE TABLET BY MOUTH TWICE A DAY 180 Tablet 025 Active Arexvy 120 MCG/0.5ML Intramuscular Suspension Reconstituted (RSV PreF3 Vac Recomb Adjuvanted)Indic ations:Need for RSV vaccination Inject 0.5 mL into a large muscle once for 1 dose. 1 Each 07/18/20 24 3:34 PM EST 024 2024 Discontinued Hospital, Clinic, or Other Facility Administered Medication Ordered Dose Route Frequency Start Date End Date Status vitamin b-12 (Cyanocobalamin) inj 1,000 mcgIndications:Vitamin B 12 deficiency 1000 mcg IM [id number] 04/01/2024 03/03/2025 Active documented as of this encounter (statuses as of 08/20/2024) Active Problems Problem Noted Date Diagnosed Date [...] Inhaler Self-Management plan Other/Additional Comments: will contact [facility] Exacerbation plan Chest Xray Assessment & Plan [...] MEDICATION USE AGREEMENT 05/10/2009 Overview (12/30/2010): Sees [facility] in [place] for her pain meds - under contract w/ them since 11/2010 - pls do not refill any pain meds through PCP office. Other chronic pain 05/10/2009 Overview (12/30/2010): Chronic CHILDRESS and joint pains since CVA Sees [facility] in [place] for her pain meds - under contract w/ them since 11/2010 - pls do not refill any pain meds through PCP office. OLD MYOCARDIAL INFARCT 03/04/2009 Overview (03/04/2009): Modified by Acute PA Protocol #5. 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 Study Titile: Genomics Markers for Patients with Cardiovascular Disease Project # [id number] PI: Gaviota Jarrett MD Please call [phone] with study related questions CVA 05/02/2006 11/26/2008 Overview (11/26/2008): Modified per CVA protocol #8 ADVANCE DIRECTIVE INFORMATION 12/13/2004 06/16/2024 Overview (12/13/2004): Brochure given to pt. Acute PA 03/04/2009 Overview (03/04/2009): Modified by Acute PA Protocol #5. PURE HYPERCHOLESTEROLEM 07/13 Overview (07/28/2009): Per Lipid Taxonomy. Need for prophylactic hormon e replacement therapy (postmenopausal) 07/28/2020 documented as of this encounter (statuses as of 08/20/2024) Immunizations Name Administration Dates Next Due COVID-19 mRNA, LNP-s, No Pre serve, 2-Dose Series (Genmab) 06/20/2021,10/06/2020,09/15/2020 COVID-19, LNP-s, No Preserve , Sadi-sucrose, Ages 12+ (Genmab) 12/20/2021 COVID-19, MRNA-LNP, PF, 30 M CG/0.3 mL, 12 YRS AND ABOVE, IM (Gingr-Comirnaty) 06/24/2024,06/14/2023 Covid-19, Mrna, Lnp-s, Pf, B ivalent, [...] Passive Smoke Exposure: Current Smokeless Tobacco: Never Tobacco Cessation:Ready to Q uit: No; Counseling Given: Yes Alcohol Use Standard Drinks/Week Comments Not Currently [...] on file documented as of this encounter Last Filed Vital Signs Vital Sign Reading Time Taken Comments Blood Pressure 108/70 08/20/2024 9:39 AM EST Pulse 92 08/20/2024 9:39 AM EST Temperature 35.3 C (95.6 F) 08/20/2024 9 :39 AM EST Respiratory Rate 14 08/20/2024 9:39 AM EST Oxygen Saturation 90% 08/20/2024 9:3 9 AM EST did apply oxygen at 2 LPM Inhaled Oxygen Concentration - - Weight 69.7 kg (153 lb 9.6 oz) 08/20/2024 9:39 AM EST Height 172.7 cm (5' 8") 08/20/2024 9:39 AM EST Body Mass Index 23.35 08/20/2024 9:39 AM EST documented in this encounter Progress Notes * Abdon Pa, - 08/20/2024 9:58 AM EST SUBJECTIVE: Malia Nice is a 68 year old female. Chief Complaint Patient presents with Follow Up HPI: Patient is a 68 year old female with a history of CAD, CABG x1 , LAD stent, bioprosthetic AVR, leftMCA CVA in 2024, Pulmonary Nodule, Depression, Lumbar Disc Disease, chronic joint pain, Anxiety, Chronic Hypoxic Respiratory Failure, Systolic CHF, and tobacco use that is seen for follow up. Chronicshortness of breath is stable. She does not have chest pain. Her portable oxygen concentrator is not working. Weight is stable and appetite is good. Back pain is controlled. No recent falls. 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, arteriosclerotic, post-stroke Osteoporosis Hypertension with goal blood pressure less than 140/80 Anxiety state S/P CABG x 1 S/P aortic valve replacement Paroxysmal atrial fibrillation ([facility]) COPD, group B, by GOLD 2017 classification ([facility]) Gastroesophageal reflux disease without esophagitis Heart failure, systolic, due to CAD ([facility]) History of tobacco use B12 deficiency Right upper lobe pulmonary nodule Chronic hypoxemic respiratory failure ([facility]) Chronic kidney disease, stage 3a ([facility]) Current Outpatient Medications Medication Sig Dispense Refill Aspirin 81 MG Oral Tablet Chewable Take 1 Tablet by mouth daily. with food. 100 Tablet 5 Vitamin D3 50 MCG (2000 UT) Oral Capsule Take 1 Capsule by mouth in the morning. 30 Capsule 5 Calcium 500 MG Oral Tablet Take 1 Tablet by mouth in the morning. With food.. 100 Tablet 11 Ventolin HFA 108 (90 Base) MCG/ACT Inhalation Aerosol Solution Inhale 2 Puffs by mouth every 4 hours as needed for Cough, Wheezing or Shortness of Breath. 54 g 3 Acetaminophen 325 MG Oral Tablet (Tylenol) Take 2 Tablets by mouth every 8 hours as needed for Pain, Severe or Pain, Moderate. Alendronate Sodium 70 MG Oral Tablet (Fosamax) TAKE 1 TABLET BY MOUTH ONCE A WEEK WITH 8 OZ OF WATER, AT LEAST 30 MINUTES BEFORE FIRST MEAL OF THE DAY. DO NOT LIE DOWN FOR 30 MINUTES AFTER TAKING 15 Tablet 3 Furosemide 20 MG Oral Tablet (Lasix) Take 1 Tablet by mouth once a day on Sunday, Sunday, and Sunday only. 30 Tablet 5 hydrOXYzine HCl 25 MG Oral Tablet Take 1 Tablet by mouth 3 times a day as needed for Itching. 180 Tablet 2 Mirtazapine 45 MG Oral Tablet (Remeron) Take 1 Tablet by mouth at bedtime 100 Tablet 3 busPIRone HCl 5 MG Oral Tablet (Buspar) take one tablet by mouth in the morning and one tablet before bedtime 200 Tablet 3 Atorvastatin Calcium 40 MG Oral Tablet (Lipitor) TAKE ONE TABLET BY MOUTH EVERY DAY 90 Tablet 2 Famotidine 20 MG Oral Tablet (Pepcid) TAKE ONE TABLET BY MOUTH EVERY MORNING 100 Tablet 3 Desvenlafaxine Succinate ER 100 MG Oral Tablet Extended Release 24 Hour (Pristiq) Take 1 Tablet by mouth in the morning. 90 Tablet 1 Pantoprazole Sodium 40 MG Oral Tablet Delayed Release (Protonix) TAKE ONE TABLET BY MOUTH TWICE A DAY in the MORNING AND BEDTIME 200 Tablet 3 amLODIPine Besylate 2.5 MG Oral Tablet (Norvasc) Take 1 Tablet by mouth daily. 100 Tablet 3 Warfarin Sodium 2.5 MG Oral Tablet (Coumadin) Take 1 Tablet by mouth every evening. OR DIRECTED BY ANTICOAGULATION PHARMACIST 100 Tablet 1 Entresto 97-103 MG Oral Tablet (sacubitril-valsartan 97-103 mg per tab) Take 1 Tablet by mouth in the morning and 1 Tablet before bedtime. 180 Tablet 3 Ondansetron HCl 4 MG Oral Tablet (Zofran) TAKE ONE TABLET BY MOUTH EVERY 8 HOURS NEEDED FOR NAUSEA 30 Tablet 0 HYDROcodone-Acetaminophen 7.5-325 MG Oral Tablet Take 1 Tablet by mouth every 8 hours as needed forPain, Severe. 90 Tablet 0 Metoprolol Succinate ER 25 MG Oral Tablet Extended Release 24 Hour (toPROL XL) TAKE ONE TABLET BY MOUTH TWICE A DAY 180 Tablet 0 oxygen IN GAS Portable unit thru [employer]. 2 LPM continuous. (Patient taking differently: Portable unit thru [facility]. 4 LPM continuous.) 1 Each 0 Nitroglycerin 0.4 MG Sublingual Tablet Sublingual (Nitrostat) ONE TAB UNDER TONGUE EVERY 5MIN X3 ASNEEDED FOR CHEST PAIN, MAX OF 3 DOSES 25 Tablet 1 Current Facility-Administered Medications Medication Dose Route Frequency Provider Last Rate Last Admin vitamin b-12 (Cyanocobalamin) inj 1,000 mcg 1,000 mcg Intramuscular Q4 Weeks 1,000 mcg at 07/18/24 1318 The patient's medication list was reviewed and updated as needed. Past Medical History: Diagnosis Date Acute PA (HCC) 08/13/1990 anterior ANGIOEDEMA B12 deficiency 05/01/2023 Backache chronic Chronic systolic heart failure (HCC) COPD (chronic obstructive pulmonary disease) ([facility]) Coronary atherosclerosis CAD CVA (cerebral vascular accident) ([facility]) Depression Depressive disorder, not elsewhere classified Depression Dyslipidemia, goal LDL below 160 Hypercholesterolemia Encounter for long-term (current) use of other medications 09/10/2020 Dr Pa GERD (gastroesophageal reflux disease) Headache(784.0) chronic History of tobacco use 10/23/2022 Ischemic cardiomyopathy Multiple joint pain chronic Myocardial infarction (HCC) Other chronic pain chronic back and joint pains and HAs - sees [facility] for pain meds Other speech or language deficit, post-stroke slow speech at abseline, also confusion in MyG emails Right upper lobe pulmonary nodule 05/17/2023 S/P aortic valve replacement 07/28/2020 S/P CABG x 1 07/28/2020 Stroke (HCC) Past Surgical History: Procedure Laterality Date CATHETERIZE LEFT HEART THRU SKIN 09/21/2008 LEFT HEART CATH, PERCUTANEOUS performed by GAVIOTA JARRETT at [facility] CORONARY ARTERY BYPASS, SINGLE EGD, FLEXIBLE, DIAGNOSTIC 10/06/2021 esophageal stenosis, repeat 1 wk / [facility] EGD, FLEXIBLE, W/BIOPSY 05/22/2011 chronic gastritis, bxs done, path shows normal duodenum, stomach minor non specific changes most likely related to medications EGD, FLEXIBLE,W/ENDOSCOPIC US 12/28/2021 angiodysplastic lesions, GB sludge, bile duct stones / [facility] ERCP 12/28/2021 Biliary papillary stenosis, choledocholithiasis, stent placed, repeat 6 wks / [facility] ERCP W/ STENT EXCHANGE 03/03/2022 stent removed / [facility] LAPAROSCOPY; CHOLECYSTECTOMY N/A 12/29/2021 MISCELLANEOUS ORDER ([facility] ONLY) 09/26/1991 angioplasty REMOVE GALLBLADDER N/A 12/29/2021 TOTAL ABD HYSTERECTOMY W/WO REMOVAL OF TUBE(S) age 38ish VALVULOPLASTY AORTIC VALVE OPEN CARDIOPULM BYPASS SIMPLE N/A 09/2019 Review of patient's allergies indicates: Allergen Reactions Clopidogrel Edema face/lips/tongue Other Reaction(s): SWELLING OF FACE/LIPS/TONGUE Oxycodone Edema Other Ticagrelor Edema face/lips/tongue Other Reaction(s): SWELLING OF FACE/LIPS/TONGUE Percodan edema Review of Systems Constitutional: Positive for fatigue. Negative for appetite change and unexpected weight change. Respiratory: Positive for shortness of breath. Negative for cough and wheezing. Cardiovascular: Negative for chest pain, palpitations and leg swelling. Gastrointestinal: Negative for abdominal pain, blood in stool, constipation, diarrhea, nausea and vomiting. Genitourinary: Negative for dysuria, frequency and hematuria. Musculoskeletal: Positive for arthralgias, back pain and myalgias. Negative for gait problem. Neurological: Positive for speech difficulty. Negative for dizziness, syncope and headaches. Psychiatric/Behavioral: Negative for confusion, decreased concentration and sleep disturbance. OBJECTIVE: BP 108/70 | Pulse 92 | Temp 95.6 F (35.3 C) | Resp 14 | Ht 5' 8" (1.727 m) | Wt 153 lb 9.6 oz (69.7 kg) | SpO2 90% Comment: did apply oxygen at 2 LPM | BMI 23.35 kg/m | BSA 1.83 m Physical Exam Vitals and nursing note reviewed. Constitutional: General: She is not in acute distress. Appearance: Normal appearance. She is not toxic-appearing. HENT: Head: Normocephalic and atraumatic. Cardiovascular: Rate and Rhythm: Normal rate and regular rhythm. Heart sounds: Normal heart sounds. No murmur heard. No gallop. Pulmonary: Effort: Pulmonary effort is normal. Breath sounds: Normal breath sounds. No wheezing, rhonchi or rales. Abdominal: General: Bowel sounds are normal. There is no distension. Palpations: Abdomen is soft. Tenderness: There is no abdominal tenderness. Musculoskeletal: Right lower leg: No edema. Left lower leg: No edema. Neurological: Mental Status: She is alert and oriented to person, place, and time. Mental status is at baseline. Motor: No weakness. Gait: Gait normal. Psychiatric: Mood and Affect: Mood normal. Behavior: Behavior normal. Thought Content: Thought content normal. PLAN AND ASSESSMENT: Heart failure, systolic, due to CAD (HCC) (Primary) - COMPREHENSIVE METABOLIC PANEL; Future; Expected date: 08/20/2024 - CBC WITH WBC DIFFERENTIAL; Future; Expected date: 08/20/2024 Continue Metoprolol ER, Entresto, and Furosemide COPD, group B, by GOLD 2017 classification ([facility]) Continue Albuterol Moderate episode of recurrent major depressive disorder ([facility]) Continue Desvenlafaxine Paroxysmal atrial fibrillation (HCC) Continue Warfarin, and Metoprolol ER Chronic hypoxemic respiratory failure (HCC) Continue Oxygen Anxiety state Continue Desvenlafaxine Hypertension with goal blood pressure less than 140/80 Continue Valsartan, and Amlodipine Age-related osteoporosis without current pathological fracture Continue Alendronate, Calcium, and Vitamin D Dyslipidemia, goal LDL below 70 - LIPID PANEL WITH DIRECT LDL IF TG IS HIGH; Future; Expected date: 08/20/2024 Continue Atorvastatin Chronic kidney disease, stage 3a (HCC) - PHOSPHORUS; Future; Expected date: 08/20/2024 Gastroesophageal reflux disease without esophagitis Continue Pantoprazole Coronary artery disease involving [place] coronary artery of [place] heart without angina pectoris Continue ASA, Valsartan, and Metoprolol ER S/P aortic valve replacement 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 | Check-out note: Please schedule mammogram, there is an open order. Abdon Pa DO 9:58 AM 08/20/2024 documented in this encounter Nursing Notes * Becki Mora LPN - 08/20/2024 9:39 AM EST Patient presents for follow up, voices no complaints. documented in this encounter Plan of Treatment Upcoming Encounters Date Type Department Care Team (Late st Contact Info) Description 09/03/2024 11:45 AM EST Imaging Radiology [address] [place] [id number] 09/23/2024 10:00 AM EST Anticoagulation Family Practice [address] [place] [address], [place] [id number] College, Pharmacist [address] [place], [place] [address] [id number] 10/13/2024 3:00 PM EST Office Visit Cardiology, [facility] [address] [place] [address] Elton Lee PA-C [address] [place] [address] 12/18/2024 10:00 AM EDT Office Visit Family Practice [address] [place], [place] [address] [phone] Abdon Pa, DO [address] [place] [place] [address] Pending Results Name Type Priority Associated Diagnoses Date /Time LIPID PANEL WITH DIRECT LDL IF TG IS HIGH Lab Routine Dyslipidemia, goal LDL below 70 08/20/2024 10:05 AM EST COMPREHENSIVE METABOLIC PANEL Lab Routine Heart failure, systolic, due to CAD (HCC) 08/20/2024 10:05 AM EST CBC WITH WBC DIFFERENTIAL Lab Routine Heart failure, systolic, due to CAD (HCC) 08/20/2024 10:05 AM EST VITAMIN B12 Lab Routine B12 deficiency 08/20/2024 10:05 AM EST 25-HYDROXY VITAMIN D Lab Routine Vitamin D deficiency 08/20/2024 10:05 AM EST PHOSPHORUS Lab Routine Chronic kidney disease, stage 3a (HCC) 08/20/2024 10:05 AM EST CBC Lab Routine Heart failure, systolic, due to CAD (HCC) 08/20/2024 10:05 AM EST DIFFERENTIAL, AUTOMATED Lab Routine Heart failure, systolic, due to CAD (HCC) 08/20/2024 10:05 AM EST Scheduled Orders Name Type Priority Associated Diagnoses Orde r Schedule COLOGUARD Lab Unrestricted Lab Special screening for malignant neoplasms, colon Ordered: 08/20/2024 LIPID PANEL WITH DIRECT LDL IF TG IS HIGH Lab Routine Dyslipidemia, goal LDL below 70 Expected: 08/20/2024, Expires: 08/20/2025 COMPREHENSIVE METABOLIC PANEL Lab Routine Heart failure, systolic, due to CAD (HCC) Expected: 08/20/2024 (Approximate), Expires: 08/20/2025 CBC WITH WBC DIFFERENTIAL Lab Routine Heart failure, systolic, due to CAD (HCC) Expected: 08/20/2024 (Approximate), Expires: 08/20/2025 VITAMIN B12 Lab Routine B12 deficiency Expected: 08/20/2024 (Approximate), Expires: 08/20/2025 25-HYDROXY VITAMIN D Lab Routine Vitamin D deficiency Expected: 08/20/2024 (Approximate), Expires: 08/20/2025 PHOSPHORUS Lab Routine Chronic kidney disease, stage 3a (HCC) Expected: 08/20/2024 (Approximate), Expires: 08/20/2025 Health Maintenance Due Date Last Done Comments DISCUSS TOBACCO CESSATION (REFER TO SMARTSET #[id number]) 1953 Fecal Occult Blood Test 1998 Sigmoidoscopy 1998 CKD PHOS USE SMARTSET 54088 10/27/2005 10/27/2004 Colonoscopy 12/27/2020 12/27/2010 Adult Wellness Visit 07/14/2023 07/14/2022, 03/01/20 21 Mammogram 08/23/2023 08/23/2022, 0 11/2021, 08/16/2021, Additional history exists GFR 05/01/2024 10/30/2023, 08/14, 04/19/2023, Additional history exists Cologuard 08/29/2024 08/29/2021, 10/2021, 08/15/2021 Colorectal Cancer Screening 08/29/2024 CKD HGB USE SMARTSET 08596 10/29/202410/29, 10/30/2023, 04/19/2023, Additional history exists Depression Monitoring 11/12/2024 11/13/2023 O2 ASSESSMENT COMPLETED IN PAST YEAR FOR COPD 04/30/2025 04/30/2024 Albumin/Creatinine Ratio 08/19/2025 025, 10/31/2023, 05/17/2022 DXA Scan 02/04/2026 02/05/2024, 01/12, 12/20/2021, Additional history exists DTap/Tdap Vaccines (3 - Td or Tdap) 01/11/2032 01/10/2022, 10/15/2007 Alpha-1 Antitrypsin Completed 08/19/2021 Pneumococcal Vaccine: 50+ Years Completed 10/19/2021, 05/10/2020, 04/22/2019, Additional history exists Zoster Vaccines Completed 01/10/2022, 10/19/2021 VITAMIN D LEVEL ONCE IN A LIFETIME-USE SMARTSET# [id number] Completed 10/30/2023, 04/13/2022, 01/10/2022, Additional history exists Lung Cancer Screening Completed 11/12/2023, 023 Influenza Vaccine (FLU shot) Completed 04/30/2024, 04/19/2023, 05/16/2022, Additional history exists COVID-19 Vaccine Discontinued 06/24/2024, 09/2022, 06/06/2022, Additional history exists HPV (Gardasil) Vaccine Aged [...] COPD, group B, by GOLD 2017 classification ([facility]) Age-related osteoporosis without current pathological fracture Senile osteoporosis Cerebrovascular disease, arteriosclerotic, post-stroke Cerebral atherosclerosis Chronic systolic heart failure (HCC) Chronic systolic heart failure Coronary artery disease involving [place] coronary artery of [place] heart without angina pectoris Old myocardial infarct Old myocardial infarction Paroxysmal atrial fibrillation (HCC) Atrial fibrillation Dyslipidemia, goal LDL below 70 Other and unspecified hyperlipidemia Gastroesophageal reflux disease without esophagitis Esophageal reflux Adjustment disorder with mixed anxiety and depressed mood [facility] current use of 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 S/P angioplasty with stent Postsurgical percutaneous transluminal coronary angioplasty status S/P aortic valve replacement Heart valve replaced by other means 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 Speech and language deficit, unspecified, late effect of cerebrovascular disease COPD, group B, by GOLD 2017 classification ([facility])- Primary Heart failure, systolic, due to CAD (HCC) Unspecified systolic heart failure Paroxysmal atrial fibrillation (HCC) Atrial fibrillation Cerebrovascular disease, arteriosclerotic, post-stroke Cerebral atherosclerosis Advanced care planning/counseling discussion Other specified counseling Heart failure, systolic, due to CAD (HCC)- Primary Unspecified systolic heart failure COPD, group B, by GOLD 2017 classification ([facility]) Moderate episode of recurrent major depressive disorder (HCC) Paroxysmal atrial fibrillation (HCC) Atrial fibrillation Chronic hypoxemic respiratory failure (HCC) Chronic respiratory failure Anxiety state Anxiety state, unspecified Hypertension with goal blood pressure less than 140/80 Age-related osteoporosis without current pathological fracture Senile osteoporosis Dyslipidemia, goal LDL below 70 Other and unspecified hyperlipidemia Chronic kidney disease, stage 3a (HCC) Gastroesophageal reflux disease without esophagitis Esophageal reflux Coronary artery disease involving [place] coronary artery of [place] heart without angina pectoris S/P aortic valve replacement Heart valve replaced by other means 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 Speech and language deficit, unspecified, late effect of cerebrovascular disease Special screening for malignant neoplasms, colon B12 deficiency Other B-complex deficiencies Vitamin D deficiency Unspecified vitamin D deficiency documented in this encounter Advance Directives Documents on File Type Date Recorded 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 Advance Directives and Living Will 06/17/2021 ADVANCE DIRECTIVE / LIVING WILL Power of Certified Medical Dosimetrist 06/17/2021 POWER OF A TTORNEY * Full Code (Latest Code Status on File) Date Activated Date Inactivated Comments 09/21/2008 9:29 AM 09/22/2008 3:05 PM Healthcare Agents on File Name Relationship Healthcare Agent Relationship Communication Fanny Fernandez Other - (no specific identity) Health Care Agent (per Health Care Power of Certified Medical Dosimetrist document) Care Teams Gang Vibrator Operator Relationship Specialty Start Date End Date Abdon Pa DO [address] [place] [address] PCP - General Internal Medicine 01/24/24 documented as of this encounter
--- OUTSIDE RECORDS SUMMARY | 2024-11-07 07:14 | External Medical Summary ---
Author Name Unknown Address Unknown Organization K01:[facility] [address] [place] [address] Laboratory Report Ordering Provider Test Date Status KAROLINA DEVRIES 08/20/2024 10:05:34 Final Observation Date Value Abnormality Reference (Units ) Status Phosphate 08/20/2024 10:05:34 3.6 2.5-4.8 (m g/dL) Final Performing Location [facility] [address] [place] [address]
--- OUTSIDE RECORDS SUMMARY | 2024-11-07 07:14 | External Medical Summary | Summary of Care ---
Author Name Unknown Organization [facility] Address [address] [place] [address] Phone [phone] Care Team Providers Care Tool Design Draftsperson Name Role Phone Abdon Pa DO Primary Care Provider [phone] Reason for Visit * Reason Comments Dosage Adjustment In Person (Anticoag Cl inic) Encounter Details Date Type Department Care Team (Late st Contact Info) Description 08/19/2024 11:20 AM EST Anticoagulation Family Practice [address] [facility] [address] [place] [address] College, Pharmacist [address] [address] Cerebrovascular disease, arteriosclerotic, post-stroke*; Anticoagulation management encounter; long-term current use of 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 Allergies Active Allergy Reactions Criticality Noted Date Comments Clopidogrel Edema face/lips/tongue High 06/03/2020 Other Reaction(s): SWELLING OF FACE/LIPS/TONGUE Oxycodone Edema Other High 12/05/2022 Percodan 11/23/2000 edema Ticagrelor Edema face/lips/tongue High 07/28/2020 Other Reaction(s): SWELLING OF FACE/LIPS/TONGUE documented as of this encounter (statuses as of 08/20/2024) Medications Aspirin 81 MG Oral Tablet ChewableIndicatio ns:Coronary artery disease involving [place] heart without angina pectoris, unspecified vessel or [...] GASIndications:He art failure, systolic, due to CAD ([facility]),SOB (shortness of breath),COPD, group B, by GOLD 2017 classification ([facility]),Chronic respiratory failure with hypoxia ([facility]) Portable unit thru [employer] [facility]. 2 LPM continuous. 1 Each 05/14/20 23 Active Additional Information Patient taking differently: Portable unit thru [employer] [facility].4 LPM continuous., Reported on 11/22/2023 Ventolin HFA 108 (90 Base) MCG/ACT Inhalation Aerosol SolutionIndicatio ns:Asthma with COPD (chronic obstructive pulmonary disease) ([facility]) Inhale 2 Puffs by mouth [...] 30 MINUTES AFTER TAKING 15 Tablet 3 4 8:14 AM EDT 09/27/19 24 2024 Active Furosemide 20 MG Oral Tablet (Lasix)Indication s:Heart failure, systolic, due to CAD ([facility]) Take 1 Tablet by mouth once a day on Sunday, Sunday, and Sunday only. 30 Tablet 5 11/02/19 24 Active hydrOXYzine HCl 25 MG Oral Tablet Take 1 Tablet by mouth 3 times a day as needed for Itching. 180 Tablet 2 4 12:55 PM EST 02/11/20 24 Active Mirtazapine 45 MG Oral Tablet (Remeron)Indicati ons:Anxiety state,Moderate episode of recurrent major depressive disorder (HCC) Take 1 Tablet by mouth at bedtime 100 Tablet 3 4 1:43 PM EDT 02/21/20 24 Active busPIRone HCl 5 MG Oral Tablet (Buspar) take one tablet by mouth in the morning and one tablet before bedtime 200 Tablet 3 4 8:44 AM EDT 03/05/20 24 Active Atorvastatin Calcium 40 MG Oral Tablet (Lipitor)Indicati ons:Dyslipidemia, goal LDL below 70 TAKE ONE TABLET BY MOUTH EVERY DAY 90 Tablet 2 4 10:51 AM EST 03/27/20 24 2024 Active Famotidine 20 MG Oral Tablet (Pepcid)Indicatio [...] the MORNING AND BEDTIME 200 Tablet 3 4 7:29 AM EDT 05/17/20 24 Active amLODIPine Besylate 2.5 MG Oral Tablet (Norvasc)Indicati ons:HTN, goal below 130/80 Take 1 Tablet by mouth daily. 100 Tablet 3 4 7:00 AM EDT 05/23/20 24 Active Nitroglycerin 0.4 MG Sublingual Tablet Sublingual (Nitrostat)Indica tions:Coronary atherosclerosis,S /P angioplasty with stent ONE TAB UNDER TONGUE EVERY 5MIN X3 NEEDED FOR CHEST PAIN, MAX OF 3 DOSES 25 Tablet 1 05/28/20 24 Active Warfarin Sodium 2.5 MG Oral Tablet (Coumadin)Indicat ions:History of artificial heart valve Take 1 Tablet by mouth every evening. OR DIRECTED BY ANTICOAGULATION PHARMACIST 100 Tablet 1 4 5:05 PM EDT 06/13/20 24 Active Entresto 97-103 MG Oral Tablet (sacubitril-valsa rtan 97-103 mg per tab)Indications:C oronary artery disease involving [place] heart without angina pectoris, unspecified vessel or lesion type Take 1 Tablet by mouth in the morning and 1 Tablet before bedtime. 180 Tablet 3 4 5:53 PM EST 06/23/20 24 Active Ondansetron HCl 4 MG Oral Tablet (Zofran)Indicatio ns:Nausea TAKE ONE TABLET BY MOUTH EVERY 8 HOURS NEEDED FOR NAUSEA 30 Tablet 4 1:50 PM EST 06/30/20 24 Active HYDROcodone-Aceta minophen 7.5-325 MG Oral TabletIndications :Lumbar degenerative disc disease Take 1 Tablet by mouth every 8 hours as needed for Pain, Severe. 90 Tablet 08/11/20 24 Active Metoprolol Succinate ER 25 MG Oral Tablet Extended Release 24 Hour (toPROL XL)Indications:Pa roxysmal atrial fibrillation (HCC) TAKE ONE TABLET BY MOUTH TWICE A DAY 180 Tablet 4 7:41 AM EDT 05/22/20 24 2024 [facility](Ref ill) Hospital, Clinic, or Other Facility Administered Medication Ordered Dose Route Frequency Start Date End Date Status vitamin b-12 (Cyanocobalamin) inj 1,000 mcgIndications:Vitamin B 12 deficiency 1000 mcg IM [id number] 04/01/2024 03/03/2025 Active documented as of this encounter (statuses as of 08/20/2024) Active Problems Problem Noted Date Diagnosed Date Chronic hypoxemic respiratory failure 08/27/2023 Right upper [...] Inhaler Self-Management plan Other/Additional Comments: will contact [facility] Exacerbation plan Chest Xray Assessment & [...] MEDICATION USE AGREEMENT 05/10/2009 Overview (12/30/2010): Sees [facility] in [place] for her pain meds - under contract w/ them since 11/2010 - pls do not refill any pain meds through PCP office. Other chronic pain 05/10/2009 Overview (12/30/2010): Chronic CHILDRESS and joint pains since CVA Sees [facility] in [place] for her pain meds - under contract w/ them since 11/2010 - pls do not refill any pain meds through PCP office. OLD MYOCARDIAL INFARCT 03/04/2009 Overview (03/04/2009): Modified by [facility] [place] Protocol #5. Assessment & Plan (09/04/2022 8:49 PM EST): No angina Continue above regimen S/P angioplasty with stent 09/21/2008 director long term care current use of 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 0 05/02/2006 Overview (05/14/2017): ICD-10 update of inactive term Anticoagulation management encounter 05/02/2006 Coronary artery disease invo lving [place] heart without angina pectoris Moderate episode of [...] for Patients with Cardiovascular Disease Project # [id number] PI: Magdalena Carbone MD Please call [phone] with study related questions GENOMICS CARDIO RESEARCH OTHER*[id number] 09/21/2008 09/19/2016 Overview (11/26/2009): Renamed Per Clinical Trials Billing Project. Study Titile: Genomics Markers for Patients with Cardiovascular Disease Project # [id number] PI: Magdalena Carbone MD Please call [phone] with study related questions CVA 05/02/2006 11/26/2008 Overview (11/26/2008): Modified per CVA protocol #8 ADVANCE DIRECTIVE INFORMATION 12/13/2004 06/16/2024 Overview (12/13/2004): Brochure given to pt. [place] 03/04/2009 Overview (03/04/2009): Modified by [facility] [place] Protocol #5. PURE HYPERCHOLESTEROLEM 07/13 Overview (07/28/2009): Per Lipid Taxonomy. Need for prophylactic hormon e replacement therapy (postmenopausal) 07/28/2020 documented as of this encounter (statuses as of 08/20/2024) Immunizations Name Administration Dates Next Due COVID-19 mRNA, LNP-s, No Pre serve, 2-Dose Series (Hyperpot) 06/20/2021,10/06/2020,09/15/2020 COVID-19, LNP-s, No Preserve , Sadi-sucrose, Ages 12+ (Pfizer) 12/20/2021 COVID-19, MRNA-LNP, PF, 30 M CG/0.3 mL, 12 YRS AND ABOVE, IM ([employer]) 06/24/2024,06/14/2023 Covid-19, Mrna, Lnp-s, Pf, B ivalent, 30 Mcg, IM, 12 yrs and above (Hyperpot) 06/06/2022 Pneumococcal Conjugate Vacc, 13 Valent (Prevnar) [...] this encounter Progress Notes * Jami Hope, [facility] - 08/19/2024 11:45 AM EST Medication Therapy Disease Management - Anticoagulation Patient: Malia Nice | : 1955 Subjective Patient-Reported Symptoms: Patient Findings Negatives: Signs/symptoms of thrombosis, Signs/symptoms of bleeding, Change in health, Change in alcohol use, Change in activity, Upcoming invasive procedure, Missed doses, Extra doses, Change in medications, Change in diet/appetite, Bruising Objective Current Warfarin Dose As of 08/19/2024 Warfarin maintenance plan: 2.5 mg (2.5 mg x 1) every day INR Result As of 08/19/2024 INR goal: 2.0-3.0 INR used for dosin.2 (08/19/2024) Assessment & Plan Warfarin Plan As of 08/19/2024 Full warfarin instructions: 2.5 mg every day No change documented: Jami Hope [facility] Next INR check: 09/24/2024 Repeat PT/INR in 5 week(s) Weekly dose: not changed Additional Dosing Information: I spent a total of 10-19 minutes (exact time 10 mins) on the date of service in preparation, delivery, and documentation of the care provided to Malia Nice excluding any time spent in the performance of separately billed services or time spent by another provider/QHP. Jami Cedillo [facility] Clinical Pharmacist 08/19/2024, 11:46 AM documented in this encounter Plan of Treatment Upcoming Encounters Date Type Department Care Team (Late st Contact Info) Description 08/20/2024 9:20 AM EST Office Visit Family Practice [address] [place] [address] [address] [facility] [place] [address] Abdon Pa DO [address] [facility] [place] [address] 09/23/2024 10:00 AM EST Anticoagulation Family Practice [address] [facility] [address] [facility] [place] [address] College, Pharmacist [address] [place] [address] [place] [address] 10/13/2024 3:00 PM EST Office Visit Cardiology, [facility] [address] [facility] [place] [address] Elton Lee PA-C [address] [place] [address] Health Maintenance Due Date Last Done Comments DISCUSS TOBACCO CESSATION (REFER TO SMARTSET #7286) 1955 Fecal Occult Blood Test 1998 Sigmoidoscopy 1998 Colonoscopy 12/27/2020 12/27/2010 Adult Wellness Visit 07/14/2023 07/14/2022, 03/01/20 21 Mammogram 08/23/2023 08/23/2022, 11/2021, 08/16/2021, Additional history exists Cologuard 08/29/2024 08/29/2021, 10/2021, 08/15/2021 Colorectal Cancer Screening 08/29/2024 GFR 10/29/2024 10/30/2023, 08/14, 04/19/2023, Additional history exists Depression Monitoring 11/12/2024 11/13/2023 O2 ASSESSMENT COMPLETED IN PAST YEAR FOR COPD 04/30/2025 04/30/2024 DXA Scan 02/04/2026 02/05/2024, 01/12, 12/20/2021, Additional history exists Albumin/Creatinine Ratio 08/19/2027 025, 10/31/2023, 05/17/2022 DTap/Tdap Vaccines (3 - Td or Tdap) 01/11/2032 01/10/2022, 10/15/2007 Alpha-1 Antitrypsin Completed 08/19/2021 Pneumococcal Vaccine: 50+ Years Completed 10/19/2021, 05/10/2020, 04/22/2019, Additional history exists Zoster Vaccines Completed 01/10/2022, 10/19/2021 VITAMIN D LEVEL ONCE IN A LIFETIME-USE SMARTSET# [id number] Completed 10/30/2023, 04/13/2022, 01/10/2022, Additional history exists [...] Comments INR FINGERSTICK, POINT OF CARE STAT 08/19/2024 11:47 AM EST Cerebrovascular disease, arteriosclerotic, post-stroke Anticoagulation management encounter long-term current use of 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 documented in this encounter Results * INR FINGERSTICK, POINT OF CARE (08/19/2024 11:47 AM EST) Fingerstick INR 2.2 INR 12:39 PM EST [facility] 56-21 Blood 08/19/2024 11:4 7 AM EST 08/19/2024 12:39 PM EST Narrative [facility] 56-21 - 08/19/2024 12:39 PM EST Therapeutic ranges for non-operative patients: Prophylaxsis/treatment of DVT: (Range:2.0-3.0) Treatment of pulmonary embolism:(Range:2.0-3.0) Prevention of systemic embolism from: -tissue heart valves -acute myocardial infarction -valvular heart disease -atrial fibrillation (Range: 2.0-3.0) Mechanical prosthetic valves: (Range: 2.5-3.5) us Jami Roche [facility] LAB PO INT OF CARE TEST DOCKED DEVICE UNSOLICITED RESULTS Final Result [facility] [place] [address], [facility] documented in this encounter Visit Diagnoses Diagnosis Advanced care planning/counseling discussion- Primary Other specified counseling COPD, group B, by GOLD 2017 classification (HCC) Age-related osteoporosis without current pathological fracture Senile osteoporosis Cerebrovascular disease, arteriosclerotic, post-stroke Cerebral atherosclerosis Chronic systolic heart failure (HCC) Chronic systolic heart failure Coronary artery disease involving [place] coronary artery of [place] heart without angina pectoris Old myocardial infarct Old myocardial infarction Paroxysmal atrial fibrillation (HCC) Atrial fibrillation Dyslipidemia, goal LDL below 70 Other and unspecified hyperlipidemia Gastroesophageal reflux disease without esophagitis Esophageal reflux Adjustment disorder with mixed anxiety and depressed mood director long term care current use of 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 S/P angioplasty with stent Postsurgical percutaneous transluminal coronary angioplasty status S/P aortic valve replacement Heart valve replaced by other means 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 Speech and language deficit, unspecified, late effect of cerebrovascular disease COPD, group B, by GOLD 2017 classification ([facility])- Primary Heart failure, systolic, due to CAD ([facility]) Unspecified systolic heart failure Paroxysmal atrial fibrillation (HCC) Atrial fibrillation Cerebrovascular disease, arteriosclerotic, post-stroke Cerebral atherosclerosis Advanced care planning/counseling discussion Other specified counseling Cerebrovascular disease, arteriosclerotic, post-stroke- Primary Cerebral atherosclerosis Anticoagulation management encounter Encounter for therapeutic drug monitoring director long term care current use of 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 documented in this encounter Advance Directives Documents on File Type Date Recorded 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 Advance Directives and Living Will 06/17/2021 ADVANCE DIRECTIVE / LIVING WILL Power of Aircraft Machinist 06/17/2021 POWER OF A TTORNEY * Full Code (Latest Code Status on File) Date Activated Date Inactivated Comments 09/21/2008 9:29 AM 09/22/2008 3:05 PM Healthcare Agents on File Name Relationship Healthcare Agent Relationship Communication Fanny Fernandez Other - (no specific identity) Health Care Agent (per Health Care Power of Aircraft Machinist document) Care Teams Tool Design Draftsperson Relationship Specialty Start Date End Date Abdon Pa DO [address] [place] [address] PCP - General Internal Medicine 01/24/24 documented as of this encounter
--- OUTSIDE RECORDS SUMMARY | 2024-11-07 07:14 | External Medical Summary | Summary of Care ---
Author Name Unknown Organization [facility] Address [address] [place] [address] Phone [phone] Care Team Providers Care Tractor Crane Operator Name Role Phone Abdon Pa DO Primary Care Provider [phone] Reason for Visit * Reason Onset Date Comments Test Results 08/22/202408/22 Encounter Details Date Type Department Care Team (Late st Contact Info) Description 08/22/2024 Telephone Family Practice [address] [place] [address] [place] [id number] Abdon Pa DO [address] [place] [address] Test Results (08/22) Allergies Active Allergy Reactions Criticality Noted Date Comments Clopidogrel Edema face/lips/tongue High 06/03/2020 Other Reaction(s): SWELLING OF FACE/LIPS/TONGUE Oxycodone Edema Other High 12/05/2022 Percodan 11/23/2000 edema Ticagrelor Edema face/lips/tongue High 07/28/2020 Other Reaction(s): SWELLING OF FACE/LIPS/TONGUE documented as of this encounter (statuses as of 08/22/2024) Medications Aspirin 81 MG Oral Tablet ChewableIndicatio ns:Coronary artery disease involving circle heart without angina pectoris, unspecified vessel or [...] hypoxia ([facility]) Portable unit thru [employer]. 2 LPM continuous. 1 Each 05/14/20 [...] (Lasix)Indication s:Heart failure, systolic, due to CAD ([facility]) Take 1 Tablet by [...] 4 8:44 AM EDT 03/05/20 24 Active Famotidine 20 MG Oral [...] mg per tab)Indications:C oronary artery disease involving circle heart without angina pectoris, unspecified vessel or [...] BY MOUTH TWICE A DAY 180 Tablet 08/19/19 25 Active Atorvastatin Calcium 80 MG Oral Tablet (Lipitor)Indicati ons:Dyslipidemia, goal LDL below 70 Take 1 Tablet by mouth in the morning. 100 Tablet 3 08/22/19 25 Active Atorvastatin Calcium 40 MG Oral Tablet (Lipitor)Indicati ons:Dyslipidemia, goal LDL below 70 TAKE ONE TABLET BY MOUTH EVERY DAY 90 Tablet 2 4 10:51 AM EST 03/27/20 24 2024 Disconti nued(Ref ill) Hospital, Clinic, or Other Facility Administered Medication Ordered Dose Route Frequency Start Date End Date Status vitamin b-12 (Cyanocobalamin) inj 1,000 mcgIndications:Vitamin B 12 deficiency 1000 mcg IM [id number] 04/01/2024 03/03/2025 Active documented as of this encounter (statuses as of 08/22/2024) Active Problems Problem Noted Date Diagnosed Date [...] Inhaler Self-Management plan Other/Additional Comments: will contact [facility] Exacerbation plan Chest Xray Assessment & [...] MEDICATION USE AGREEMENT 05/10/2009 Overview (12/30/2010): Sees [facility] in [place] for her pain meds - under contract w/ them since 11/2010 - pls do not refill any pain meds through PCP office. Other chronic pain 05/10/2009 Overview (12/30/2010): Chronic CHILDRESS and joint pains since CVA Sees [facility] in [place] for her pain meds - under contract w/ them since 11/2010 - pls do not refill any pain meds through PCP office. OLD MYOCARDIAL INFARCT 03/04/2009 Overview (03/04/2009): Modified by Acute [place] Protocol #5. 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 Study Titile: Genomics Markers for Patients with Cardiovascular Disease Project # [id number] PI: Magdalena Carbone MD Please call [phone] with study related questions CVA 05/02/2006 11/26/2008 Overview (11/26/2008): Modified per CVA protocol #8 ADVANCE DIRECTIVE INFORMATION 12/13/2004 06/16/2024 Overview (12/13/2004): Brochure given to pt. Acute IA 03/04/2009 Overview (03/04/2009): Modified by Acute [place] Protocol #5. PURE HYPERCHOLESTEROLEM 07/13 Overview (07/28/2009): Per Lipid Taxonomy. Need for prophylactic hormon e replacement therapy (postmenopausal) 07/28/2020 documented as of this encounter (statuses as of 08/22/2024) Immunizations Name Administration Dates Next Due COVID-19 mRNA, LNP-s, No Pre serve, 2-Dose Series ([employer]) 06/20/2021,10/06/2020,09/15/2020 COVID-19, LNP-s, No Preserve , Sadi-sucrose, [...] encounter Miscellaneous Notes * Telephone Encounter - Becki Mora LPN - 08/22/2024 1:38 PM EST Has not been taking vitamin D in some time, will restart Will increase atorvastatin. Thank you * Telephone Encounter - Johanna Avilez OSA - 08/22/2024 12:41 PM EST Pt returning call. * Telephone Encounter - Clary Mark LPN - 08/22/2024 9:31 AM EST Call placed to patient - no answer. Message left to return call to [phone]. * Telephone Encounter - Clary Mark LPN - 08/22/2024 9:28 AM EST ----- Message from Abdon Pa DO sent at 08/22/2024 8:09 AM EST ----- Vitamin D is low Cholesterol is not at goal. Make sure that patient is taking vitamin D Increase Atorvastatin to 80 mg daily documented in this encounter Plan of Treatment Upcoming Encounters Date Type Department Care Team (Late st Contact Info) Description 09/03/2024 11:45 AM EST Imaging Radiology [address] [facility] [place] [address] 09/23/2024 10:00 AM EST Anticoagulation Family Practice [address] [facility] 293 [facility] [place] [address] College, Pharmacist [address], [place] [address] 10/13/2024 3:00 PM EST Office Visit Cardiology, [facility] 132 [facility] [place] [address] Elton Lee PA-C 132 [facility] [place] [address] 12/18/2024 10:00 AM EDT Office Visit Family Practice [address] [place] [address] [place] [address] Abdon Pa DO [address] [facility], [place] [address] Health Maintenance Due Date Last Done Comments [...] 025, 10/31/2023, 05/17/2022 CKD HGB USE SMARTSET 62978 08/20/202508/20, 08/20/2024, 10/30/2023, Additional history exists CKD PHOS USE SMARTSET 68304 08/20/2025 08/20/2024, 0 10/27/2004 O2 ASSESSMENT COMPLETED [...] D LEVEL ONCE IN A LIFETIME-USE SMARTSET# 87272 Completed 08/20/2024, 10/30/2023, 04/13/2022, Additional history exists [...] COPD, group B, by GOLD 2017 classification ([facility]) Age-related osteoporosis without current pathological fracture Senile osteoporosis Cerebrovascular disease, arteriosclerotic, post-stroke Cerebral atherosclerosis Chronic systolic heart failure (HCC) Chronic systolic heart failure Coronary artery disease involving circle coronary artery of circle heart without angina pectoris Old myocardial infarct Old myocardial infarction Paroxysmal atrial fibrillation (HCC) Atrial fibrillation Dyslipidemia, goal LDL below 70 Other and unspecified hyperlipidemia Gastroesophageal reflux disease without esophagitis Esophageal reflux Adjustment disorder with mixed anxiety and depressed mood alf current use of 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 S/P angioplasty with stent Postsurgical percutaneous transluminal coronary angioplasty status S/P aortic valve replacement Heart valve replaced by other means 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 Speech and language deficit, unspecified, late effect of cerebrovascular disease COPD, group B, by GOLD 2017 classification ([facility])- Primary Heart failure, systolic, due to CAD (HCC) Unspecified systolic heart failure Paroxysmal atrial fibrillation (HCC) Atrial fibrillation Cerebrovascular disease, arteriosclerotic, post-stroke Cerebral atherosclerosis Advanced care planning/counseling discussion Other specified counseling Dyslipidemia, goal LDL below 70 Other and unspecified hyperlipidemia documented in this encounter Advance Directives Documents on File Type Date Recorded Patient Pump And Still Operator Expl anation Advance Directives and Living Will 06/17/2021 ADVANCE DIRECTIVE / LIVING WILL Power of Performing Artist 06/17/2021 POWER OF A TTORNEY * Full Code (Latest Code Status on File) Date Activated Date Inactivated Comments 09/21/2008 9:29 AM 09/22/2008 3:05 PM Healthcare Agents on File Name Relationship Healthcare Agent Relationship Communication Fanny Fernandez Other - (no specific identity) Health Care Agent (per Health Care Power of Performing Artist document) Care Teams Tractor Crane Operator Relationship Specialty Start Date End Date Abdon Pa DO [address] [place] [address] PCP - General Internal Medicine 01/24/24 documented as of this encounter
--- OUTSIDE RECORDS SUMMARY | 2024-11-07 07:14 | External Medical Summary | Summary of Care ---
Author Name Unknown Organization [facility] Address [address] [place] [address] Phone [phone] Care Team Providers Care Systems Operator Name Role Phone Abdon Pa DO Primary Care Provider [phone] Encounter Details Date Type Department Care Team (Late st Contact Info) Description 08/26/2024 Population Health External Data Unspecified Department Allergies Active Allergy Reactions Criticality Noted Date Comments Clopidogrel Edema face/lips/tongue High 06/03/2020 Other Reaction(s): SWELLING OF FACE/LIPS/TONGUE Oxycodone Edema Other High 12/05/2022 Percodan 11/23/2000 edema Ticagrelor Edema face/lips/tongue High 07/28/2020 Other Reaction(s): SWELLING OF FACE/LIPS/TONGUE documented as of this encounter (statuses as of 08/27/2024) Medications Aspirin 81 MG Oral Tablet ChewableIndicatio ns:Coronary artery disease involving paiute-shoshone heart without angina pectoris, unspecified vessel or [...] breath),COPD, group B, by GOLD 2017 classification ([facility]),Chronic respiratory failure with hypoxia ([facility]) Portable unit thru [employer]. 2 LPM continuous. 1 Each 05/14/20 Active Additional Information Patient taking differently: Portable unit thru [employer].4 LPM continuous., Reported on 11/22/2023 Ventolin HFA 108 (90 Base) MCG/ACT Inhalation Aerosol SolutionIndicatio ns:Asthma with COPD (chronic obstructive pulmonary disease) ([facility]) Inhale 2 Puffs by mouth every 4 [...] 3 4 8:14 AM EDT 09/27/19 24 025 Active Furosemide 20 MG Oral Tablet (Lasix)Indication s:Heart failure, systolic, due to CAD ([facility]) Take 1 Tablet by mouth once a day on Sunday, Sunday, and Sunday only. 30 Tablet 5 11/02/19 24 Active hydrOXYzine HCl 25 MG Oral Tablet Take 1 Tablet by mouth 3 times a day as needed for Itching. 180 Tablet 2 4 12:55 PM EST 02/11/20 24 Active Mirtazapine 45 MG Oral Tablet (Remeron)Indicati ons:Anxiety state,Moderate episode of recurrent major depressive disorder ([facility]) Take 1 Tablet by mouth at bedtime [...] 4 7:00 AM EDT 05/23/20 24 Active Warfarin Sodium 2.5 MG Oral Tablet (Coumadin)Indicat ions:History of artificial heart valve Take 1 Tablet by mouth every evening. OR DIRECTED BY ANTICOAGULATION PHARMACIST 100 Tablet 1 4 5:05 PM EDT 06/13/20 24 Active Entresto 97-103 MG Oral Tablet (sacubitril-valsa rtan 97-103 mg per tab)Indications:C oronary artery disease involving paiute-shoshone heart without angina pectoris, unspecified vessel or [...] morning. 100 Tablet 3 08/22/19 25 Active Nitroglycerin 0.4 MG Sublingual Tablet Sublingual (Nitrostat)Indica tions:Coronary atherosclerosis,S /P angioplasty with stent Place one tab under tongue every 5 min up to three times as needed for chest pain, max of 3 doses 25 Tablet 1 08/25/19 25 Active Hospital, Clinic, or Other Facility Administered Medication Ordered Dose Route Frequency Start Date End Date Status vitamin b-12 (Cyanocobalamin) inj 1,000 mcgIndications:Vitamin B 12 deficiency 1000 mcg IM [id number] 04/01/2024 03/03/2025 Active documented as of this encounter (statuses as of 08/27/2024) Active Problems Problem Noted Date Diagnosed Date [...] Self-Management plan Other/Additional Comments: will contact [facility] Exacerbation plan Chest Xray Assessment [...] 05/10/2009 Overview (12/30/2010): Sees [facility] in [place] for her pain meds - under contract [...] INFARCT 03/04/2009 Overview (03/04/2009): Modified by Acute [place] Protocol #5. 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 Study Titile: Genomics Markers for Patients with Cardiovascular Disease Project # [id number] PI: Magdalena Carbone MD Please call [phone] with study related questions CVA 05/02/2006 11/26/2008 Overview (11/26/2008): Modified per CVA protocol #8 ADVANCE DIRECTIVE INFORMATION 12/13/2004 06/16/2024 Overview (12/13/2004): Brochure given to pt. Acute MS 03/04/2009 Overview (03/04/2009): Modified by Acute MS Protocol #5. PURE HYPERCHOLESTEROLEM 07/13 Overview (07/28/2009): Per Lipid Taxonomy. Need for prophylactic hormon e replacement therapy (postmenopausal) 07/28/2020 documented as of this encounter (statuses as of 08/27/2024) Immunizations Name Administration Dates Next Due COVID-19 mRNA, LNP-s, No Pre serve, 2-Dose Series ([employer]) 06/20/2021,10/06/2020,09/15/2020 COVID-19, LNP-s, No Preserve , Sadi-sucrose, Ages 12+ ([employer]) 12/20/2021 COVID-19, MRNA-LNP, PF, 30 M CG/0.3 mL, 12 YRS AND ABOVE, IM ([facility]) 06/24/2024,06/14/2023 Covid-19, Mrna, Lnp-s, Pf, B ivalent, 30 Mcg, IM, 12 yrs and above ([employer]) 06/06/2022 Pneumococcal Conjugate Vacc, 13 Valent (Prevnar) [...] Practice 65 [facility] [address] [place] [address] College, Pharmacist [address] [place] [address] 10/13/2024 3:00 PM EST Office Visit Cardiology, [facility] [address] [place] [address] Elton Lee PA-C [address] [place] [address] 12/18/2024 10:00 AM EDT Office Visit Family Practice [facility] [address] [facility] [address] Abdon Pa, DO [address] [place] [address] Health Maintenance Due Date Last Done Comments DISCUSS TOBACCO CESSATION (REFER TO SMARTSET #2657) 1953 Fecal Occult Blood Test 1998 Sigmoidoscopy 1998 Colonoscopy 12/27/2020 12/27/2010 Adult Wellness Visit 07/14/2023 07/14/2022, 03/01/20 21 Mammogram 08/23/2023 08/23/2022, 11/2021, 08/16/2021, Additional history exists Cologuard 08/29/2024 08/29/2021, 10/2021, 08/15/2021 Colorectal Cancer Screening 08/29/2024 Depression Monitoring 11/12/2024 11/13/2023 GFR 02/17/2025 08/20/2024, 10/11, 09/06/2023, Additional history exists Albumin/Creatinine Ratio 08/19/2025 025, 10/31/2023, 05/17/2022 CKD HGB USE SMARTSET 24505 08/20/202508/20, 08/20/2024, 10/30/2023, Additional history exists CKD PHOS USE SMARTSET 79461 08/20/2025 08/20/2024, 0 10/27/2004 O2 ASSESSMENT COMPLETED [...] D LEVEL ONCE IN A LIFETIME-USE SMARTSET# 60199 Completed 08/20/2024, 10/30/2023, 04/13/2022, Additional history exists [...] Documents on File Type Date Recorded Patient Nurse Gynecology Expl anation Advance Directives and Living Will 06/17/2021 ADVANCE DIRECTIVE / LIVING WILL Power of Wallpaper Remover Steam 06/17/2021 POWER OF A TTORNEY * Full Code (Latest Code Status on File) Date Activated Date Inactivated Comments 09/21/2008 9:29 AM 09/22/2008 3:05 PM Healthcare Agents on File Name Relationship Healthcare Agent Relationship Communication Fanny Fernandez Other - (no specific identity) Health Care Agent (per Health Care Power of Wallpaper Remover Steam document) Care Teams Systems Operator Relationship Specialty Start Date End Date Abdon Pa DO [address] [place] [address] PCP - General Internal Medicine 01/24/24 documented as of this encounter
--- OUTSIDE RECORDS SUMMARY | 2024-11-07 07:14 | External Medical Summary | Summary of Care ---
Author Name Unknown Organization [facility] Address [address] [place] [address] Phone [phone] Care Team Providers Care Stranner Name Role Phone Kayce Pa DO Primary Care Provider Reason for Visit * Reason Onset Date Comments Medication Refill 08/22/2024 Encounter Details Date Type Department Care Team (Late st Contact Info) Description 08/22/2024 Refill Family Practice [address] [place] [address] [place] [id number] Kayce Pa DO [address] [place], [place] [id number] CORONARY ATHEROSCLEROSIS OF UNSPECIFIED TYPE OF VESSEL, EMMONAK OR GRAFT; S/P angioplasty with stent Allergies Active Allergy Reactions Criticality Noted Date Comments Clopidogrel Edema face/lips/tongue High 06/03/2020 Other Reaction(s): SWELLING OF FACE/LIPS/TONGUE Oxycodone Edema Other High 12/05/2022 Percodan 11/23/2000 edema Ticagrelor Edema face/lips/tongue High 07/28/2020 Other Reaction(s): SWELLING OF FACE/LIPS/TONGUE documented as of this encounter (statuses as of 08/25/2024) Medications Aspirin 81 MG Oral Tablet ChewableIndicatio ns:Coronary artery disease involving [place] heart without angina pectoris, unspecified vessel or [...] [facility]) Portable unit thru [facility]. 2 LPM continuous. 1 Each 05/14/20 [...] (Lasix)Indication s:Heart failure, systolic, due to CAD ([facility]) Take 1 Tablet by mouth once a [...] mg per tab)Indications:C oronary artery disease involving [place] heart without angina pectoris, unspecified vessel or [...] doses 25 Tablet 1 08/25/19 25 Active Nitroglycerin 0.4 MG Sublingual Tablet Sublingual (Nitrostat)Indica tions:Coronary atherosclerosis,S /P angioplasty with stent ONE TAB UNDER TONGUE EVERY 5MIN X3 NEEDED FOR CHEST PAIN, MAX OF 3 DOSES 25 Tablet 1 05/28/20 24 2024 Disconti nued(Ref ill) Hospital, Clinic, or Other Facility Administered Medication Ordered Dose Route Frequency Start Date End Date Status vitamin b-12 (Cyanocobalamin) inj 1,000 mcgIndications:Vitamin B 12 deficiency 1000 mcg IM [id number] 04/01/2024 03/03/2025 Active documented as of this encounter (statuses as of 08/25/2024) Active Problems Problem Noted Date Diagnosed Date [...] Inhaler Self-Management plan Other/Additional Comments: will contact [facility] Exacerbation plan Chest Xray Assessment & Plan [...] MEDICATION USE AGREEMENT 05/10/2009 Overview (12/30/2010): Sees [facility] in [place] for her pain meds - under contract w/ them since 11/2010 - pls do not refill any pain meds through PCP office. Other chronic pain 05/10/2009 Overview (12/30/2010): Chronic CHILDRESS and joint pains since CVA Sees [facility] in [place] for her pain meds - under contract w/ them since 11/2010 - pls do not refill any pain meds through PCP office. OLD MYOCARDIAL INFARCT 03/04/2009 Overview (03/04/2009): Modified by [facility] [place] Protocol #5. 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 Study Titile: Genomics Markers for Patients with Cardiovascular Disease Project # [phone] PI: Magdalena Carbone MD Please call [phone] with study related questions CVA 05/02/2006 11/26/2008 Overview (11/26/2008): Modified per CVA protocol #8 ADVANCE DIRECTIVE INFORMATION 12/13/2004 06/16/2024 Overview (12/13/2004): Brochure given to pt. Acute [place] 03/04/2009 Overview (03/04/2009): Modified by [facility] [place] Protocol #5. PURE HYPERCHOLESTEROLEM 07/13 Overview (07/28/2009): Per Lipid Taxonomy. Need for prophylactic hormon e replacement therapy (postmenopausal) 07/28/2020 documented as of this encounter (statuses as of 08/25/2024) Immunizations Name Administration Dates Next Due COVID-19 mRNA, LNP-s, No Pre serve, 2-Dose Series (Electro-LuminX) 06/20/2021,10/06/2020,09/15/2020 COVID-19, LNP-s, No Preserve , Sadi-sucrose, [...] Miscellaneous Notes * Telephone Encounter - Jami Pugh, [facility] - 08/25/2024 2:47 PM ESTSigned Prescriptions: Disp Refills Nitroglycerin 0.4 MG Sublingual Tablet Sub*25 Tab*1 Sig: Place one tab under tongue every 5 min up to three times as needed for chest pain, max of 3 dosesAuthorizing Provider: KAYCE PA User: JAMI PUGH * Telephone Encounter - Jami Pugh RP - 08/25/2024 2:47 PM EST Spoke to patient - she wanted it from [facility] mail order. Kriss Grimaldo D, POLACP Clinical Pharmacist [address] [facility] 08/25/2024, 2:47 PM Ph. [phone] * Telephone Encounter - Jami Pugh RPh - 08/22/2024 4:11 PM EST Called patient as this refill is to a pharmacy patient doesn't use. Had to leave a message. Do not fill this script until we hear from patient. Kriss Grimaldo D, BCACP Clinical Pharmacist [address] - [facility] 08/22/2024, 4:12 PM Ph. [phone] documented in this encounter Plan of Treatment Upcoming Encounters Date Type Department Care Team (Late st Contact Info) Description 09/03/2024 11:45 AM EST Imaging Radiology [address], [address] [place] [phone] 09/23/2024 10:00 AM EST Anticoagulation Family Practice [address] [place] [address] 293 [place] [phone] College, Pharmacist [address] [place] [address], [place] [address] 10/13/2024 3:00 PM EST Office Visit Cardiology, [facility] [address] [facility] [place] [address] Elton Lee PA-C [address] [facility] [place] [address] 12/18/2024 10:00 AM EDT Office Visit Family Practice [address] [place] [address] 293 [facility], [place] [address] Kayce Pa, [address] [facility] [address] Health Maintenance Due Date Last Done Comments [...] 025, 10/31/2023, 05/17/2022 CKD HGB USE SMARTSET 10826 08/20/202508/20, 08/20/2024, 10/30/2023, Additional history exists CKD PHOS USE SMARTSET 54463 08/20/2025 08/20/2024, 0 10/27/2004 O2 ASSESSMENT COMPLETED [...] D LEVEL ONCE IN A LIFETIME-USE SMARTSET# 40612 Completed 08/20/2024, 10/30/2023, 04/13/2022, Additional history exists [...] systolic heart failure Coronary artery disease involving [place] coronary artery of [place] heart without angina pectoris Old myocardial infarct Old myocardial infarction Paroxysmal atrial fibrillation (HCC) Atrial fibrillation Dyslipidemia, goal LDL below 70 Other and unspecified hyperlipidemia Gastroesophageal reflux disease without esophagitis Esophageal reflux Adjustment disorder with mixed anxiety and depressed mood residential current use of 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 S/P angioplasty [...] Unspecified systolic heart failure Paroxysmal atrial fibrillation ([facility]) Atrial fibrillation Cerebrovascular disease, arteriosclerotic, post-stroke Cerebral atherosclerosis Advanced care planning/counseling discussion Other specified counseling CORONARY ATHEROSCLEROSIS OF UNSPECIFIED TYPE OF VESSEL, EMMONAK OR GRAFT Coronary atherosclerosis of unspecified type of vessel, [place] or graft S/P angioplasty with stent Postsurgical percutaneous transluminal coronary angioplasty status documented in this encounter Advance Directives Documents on File Type Date Recorded 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 Advance Directives and Living Will 06/17/2021 ADVANCE DIRECTIVE / LIVING WILL Power of Textile Machinery Instructor 06/17/2021 POWER OF A TTORNEY * Full Code (Latest Code Status on File) Date Activated Date Inactivated Comments 09/21/2008 9:29 AM 09/22/2008 3:05 PM Healthcare Agents on File Name Relationship Healthcare Agent Relationship Communication Fanny Fernandez Other - (no specific identity) Health Care Agent (per Health Care Power of Textile Machinery Instructor document) Care Teams Stranner Relationship Specialty Start Date End Date Kayce Pa DO [address] [place] [address] PCP - General Internal Medicine 01/24/24 documented as of this encounter
--- OUTSIDE RECORDS SUMMARY | 2024-11-07 07:14 | External Medical Summary | Summary of Care ---
Author Name Unknown Organization [facility] Address [address] [place] [address] Phone [phone] Care Team Providers Care Polymerization Kettle Operator Name Role Phone Abdon Pa DO Primary Care Provider [phone] Encounter Details Date Type Department Care Team (Late st Contact Info) Description 09/03/2024 Population Health External Data Unspecified Department Allergies Active Allergy Reactions Criticality Noted Date Comments Clopidogrel Edema face/lips/tongue High 06/03/2020 Other Reaction(s): SWELLING OF FACE/LIPS/TONGUE Oxycodone Edema Other High 12/05/2022 Percodan 11/23/2000 edema Ticagrelor Edema face/lips/tongue High 07/28/2020 Other Reaction(s): SWELLING OF FACE/LIPS/TONGUE documented as of this encounter (statuses as of 09/03/2024) Medications Aspirin 81 MG Oral Tablet ChewableIndicatio ns:Coronary artery disease involving ione heart without angina pectoris, unspecified vessel or [...] breath),COPD, group B, by GOLD 2017 classification ([facility]),Chronic respiratory failure with hypoxia ([facility]) Portable unit thru [facility]. 2 LPM continuous. 1 Each 05/14/20 23 Active Additional Information Patient taking differently: Portable unit thru [employer] [facility].4 LPM continuous., Reported on 11/22/2023 Ventolin HFA 108 (90 Base) MCG/ACT Inhalation Aerosol SolutionIndicatio ns:Asthma with COPD (chronic obstructive pulmonary disease) ([facility]) Inhale 2 Puffs by mouth [...] 7:18 AM EST 09/27/19 24 025 Active Furosemide 20 MG Oral Tablet (Lasix)Indication s:Heart failure, systolic, due to CAD ([facility]) Take 1 Tablet by mouth [...] state,Moderate episode of recurrent major depressive disorder ([facility]) Take 1 Tablet by mouth [...] mg per tab)Indications:C oronary artery disease involving ione heart without angina pectoris, unspecified vessel or [...] 5 3:27 PM EST 08/25/19 25 Active Hospital, Clinic, or Other Facility Administered Medication Ordered Dose Route Frequency Start Date End Date Status vitamin b-12 (Cyanocobalamin) inj 1,000 mcgIndications:Vitamin B 12 deficiency 1000 mcg IM [id number] 04/01/2024 03/03/2025 Active documented as of this encounter (statuses as of 09/03/2024) Active Problems Problem Noted Date Diagnosed Date [...] Inhaler Self-Management plan Other/Additional Comments: will contact [facility] Exacerbation plan Chest Xray Assessment & [...] 05/10/2009 Overview (12/30/2010): Sees [facility] in [place] for her pain meds - under contract [...] INFARCT 03/04/2009 Overview (03/04/2009): Modified by Acute [place] Protocol #5. 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 Study Titile: Genomics Markers for Patients with Cardiovascular Disease Project # [id number] PI: Magdalena Carbone MD Please call [phone] with study related questions CVA 05/02/2006 11/26/2008 Overview (11/26/2008): Modified per CVA protocol #8 ADVANCE DIRECTIVE INFORMATION 12/13/2004 06/16/2024 Overview (12/13/2004): Brochure given to pt. Acute [place] 03/04/2009 Overview (03/04/2009): Modified by Acute [place] Protocol #5. PURE HYPERCHOLESTEROLEM 07/13 Overview (07/28/2009): Per Lipid Taxonomy. Need for prophylactic hormon e replacement therapy (postmenopausal) 07/28/2020 documented as of this encounter (statuses as of 09/03/2024) Immunizations Name Administration Dates Next Due COVID-19 mRNA, LNP-s, No Pre serve, 2-Dose Series ([employer]) 06/20/2021,10/06/2020,09/15/2020 COVID-19, LNP-s, No Preserve , Sadi-sucrose, Ages 12+ (Pfizer) 12/20/2021 COVID-19, MRNA-LNP, PF, 30 M CG/0.3 mL, 12 YRS AND ABOVE, IM (PFIZER-Comirnat) 06/24/2024,06/14/2023 Covid-19, Mrna, Lnp-s, Pf, B ivalent, 30 Mcg, IM, 12 yrs and above ([employer]) 06/06/2022 Pneumococcal Conjugate Vacc, 13 Valent (Prevnar) [...] 10:00 AM EST Anticoagulation Family Practice [address] [facility] 293 [place] [address] College, Pharmacist [address] [place] [address] 10/13/2024 3:00 PM EST Office Visit Cardiology, [facility] [address] [place] [address] Elton Lee PA-C [address] [place] [address] 12/18/2024 10:00 AM EDT Office Visit Family Practice [address] [facility] [address] [place] [address] Abdon Pa, [address] [facility] [place] [address] Health Maintenance Due Date Last Done Comments DISCUSS TOBACCO CESSATION (REFER TO SMARTSET #0566) 1953 Fecal Occult Blood Test 1998 Sigmoidoscopy 1998 Colonoscopy 12/27/2020 12/27/2010 Adult Wellness Visit 07/14/2023 07/14/2022, 03/01/20 21 Mammogram 08/23/2023 08/23/2022, 11/2021, 08/16/2021, Additional history exists Cologuard 08/29/2024 08/29/2021, 10/2021, 08/15/2021 Colorectal Cancer Screening 08/29/2024 Depression Monitoring 11/12/2024 11/13/2023 GFR 02/17/2025 08/20/2024, 10/11, 09/06/2023, Additional history exists Albumin/Creatinine Ratio 08/19/2025 025, 10/31/2023, 05/17/2022 CKD HGB USE SMARTSET 68170 08/20/202508/20, 08/20/2024, 10/30/2023, Additional history exists CKD PHOS USE SMARTSET 92718 08/20/2025 08/20/2024, 0 10/27/2004 O2 ASSESSMENT COMPLETED [...] D LEVEL ONCE IN A LIFETIME-USE SMARTSET# 39905 Completed 08/20/2024, 10/30/2023, 04/13/2022, Additional history exists [...] Documents on File Type Date 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 Advance Directives and Living Will 06/17/2021 ADVANCE DIRECTIVE / LIVING WILL Power of Dosimetrist 06/17/2021 POWER OF A TTORNEY * Full Code (Latest Code Status on File) Date Activated Date Inactivated Comments 09/21/2008 9:29 AM 09/22/2008 3:05 PM Healthcare Agents on File Name Relationship Healthcare Agent Relationship Communication Fanny Fernandez Other - (no specific identity) Health Care Agent (per Health Care Power of Dosimetrist document) Care Teams Polymerization Kettle Operator Relationship Specialty Start Date End Date Abdon Pa DO [address] [place] [address] PCP - General Internal Medicine 01/24/24 documented as of this encounter
--- OUTSIDE RECORDS SUMMARY | 2024-11-07 07:14 | External Medical Summary ---
Author Name Unknown Address Unknown Organization K01:[facility] [place] [address] [facility] [place] [address] Laboratory Report Ordering Provider Test Date Status KAROLINA EDVRIES 08/20/2024 10:05:34 Final Observation Date Value Abnormality Reference (Units ) Status Triglyceride 08/20/2024 10:05:34 180 Above high normal <=174 (mg/dL) Final Triglyceride Reference Range s (mg/dL):
<150 Acceptable
150-174 Borderline high
175-499 High
>=500 Very high Cholesterol 08/20/2024 10:05:34 168 <200 (mg /dL) Final Total Cholesterol Reference Ranges (mg/dL):
<200 Desirable
200-239 Borderline high
>=240 High HDL 08/20/2024 10:05:34 45 Below low normal >49 (mg/dL) Final HDL Cholesterol Reference Ra nges (mg/dL):
>=60 High (Desirable)
<50 Low (Undesirable) For Females
<40 Low (Undesirable) For Males NON-HDL CHOLESTEROL 08/20/2024 10:05:34 123 <=159 (mg/dL) Final Non-HDL Cholesterol Referenc e Range (mg/dL):
<100 Target level for high risk ASCVD patient
<130 Optimal for general population
130-159 Near optimal for general population
160-189 Borderline High
190-219 High
>=220 Very High LDL, (calculated) 08/20/2024 10:05:34 87 <= 129 (mg/dL) Final LDL Cholesterol Reference Ra nges (mg/dL):
<70 Target level for high risk ASCVD patient
<100 Optimal for general population
100-129 Near optimal for general population
130-159 Borderline high
160-189 High
>=190 Very high Performing Location [facility] [place] - [address] [facility] [address]
--- OUTSIDE RECORDS SUMMARY | 2024-11-07 07:15 | External Medical Summary | Summary of Care ---
Author Name Unknown Organization [facility] Address [address] [place] [address] Phone [phone] Care Team Providers Care Contracts Paralegal Name Role Phone Kayce Pa DO Primary Care Provider [phone] Reason for Visit * Reason Onset Date Comments Medication Refill 08/10/2024 Encounter Details Date Type Department Care Team (Late st Contact Info) Description 08/10/2024 Refill Family Practice [address] [place] [address] [place] [phone] Kayce Pa DO [address] [place], [place] [phone] Lumbar degenerative disc disease Allergies Active Allergy Reactions Criticality Noted Date Comments Clopidogrel Edema face/lips/tongue High 06/03/2020 Other Reaction(s): SWELLING OF FACE/LIPS/TONGUE Oxycodone Edema Other High 12/05/2022 Percodan 11/23/2000 edema Ticagrelor Edema face/lips/tongue High 07/28/2020 Other Reaction(s): SWELLING OF FACE/LIPS/TONGUE documented as of this encounter (statuses as of 08/11/2024) Medications Aspirin 81 MG Oral Tablet ChewableIndicatio ns:Coronary artery disease involving [place] heart without angina pectoris, unspecified vessel or lesion type Take 1 Tablet by mouth daily. with food. 100 Tablet 5 07/12/20 21 Active Vitamin D3 50 MCG (2000 UT) Oral Capsule Take 1 Capsule by mouth in the morning. 30 Capsule 01/13/20 Active Calcium 500 MG Oral Tablet Take 1 Tablet by mouth in the morning. With food.. 100 Tablet 11 01/13/20 Active oxygen IN GASIndications:He art failure, systolic, due to CAD ([facility]),SOB (shortness of breath),COPD, group B, by GOLD 2017 classification ([facility]),Chronic respiratory failure with hypoxia ([facility]) Portable unit thru [employer]. 2 LPM continuous. 1 Each 05/14/20 23 Active Additional Information Patient taking differently: Portable unit thru [employer].4 LPM continuous., Reported on 11/22/2023 Ventolin HFA 108 (90 Base) MCG/ACT Inhalation Aerosol SolutionIndicatio ns:Asthma with COPD (chronic obstructive pulmonary disease) ([facility]) Inhale 2 Puffs by mouth every [...] (Lasix)Indication s:Heart failure, systolic, due to CAD ([facility]) Take 1 Tablet by mouth once a day on Sunday, Sunday, and Sunday only. 30 Tablet 5 11/02/19 24 Active hydrOXYzine HCl 25 MG Oral Tablet Take 1 Tablet by mouth 3 times a day as needed for Itching. 180 Tablet 2 4 12:55 PM EST 02/11/20 24 Active Mirtazapine 45 MG Oral Tablet (Remeron)Indicati ons:Anxiety state,Moderate episode of recurrent major depressive disorder ([facility]) Take 1 Tablet by mouth at [...] 4 7:29 AM EDT 05/17/20 24 Active Metoprolol Succinate ER 25 MG Oral Tablet Extended Release 24 Hour (toPROL XL)Indications:Pa roxysmal atrial fibrillation (HCC) TAKE ONE TABLET BY MOUTH TWICE A DAY 180 Tablet 4 7:41 AM EDT 05/22/20 24 2024 Active amLODIPine Besylate 2.5 MG Oral Tablet [...] mg per tab)Indications:C oronary artery disease involving [place] heart without angina pectoris, unspecified vessel or [...] Pain, Severe. 90 Tablet 08/11/20 24 Active HYDROcodone-Aceta minophen 7.5-325 MG Oral TabletIndications :Lumbar degenerative disc disease Take 1 Tablet by mouth every 8 hours as needed for Pain, Severe. 90 Tablet 07/11/20 24 2023 Disconti nued(Ref ill) Hospital, Clinic, or Other Facility Administered Medication Ordered Dose Route Frequency Start Date End Date Status vitamin b-12 (Cyanocobalamin) inj 1,000 mcgIndications:Vitamin B 12 deficiency 1000 mcg IM [id number] 04/01/2024 03/03/2025 Active documented as of this encounter (statuses as of 08/11/2024) Active Problems Problem Noted Date Diagnosed Date [...] Inhaler Self-Management plan Other/Additional Comments: will contact [facility] Exacerbation plan Chest Xray Assessment [...] MEDICATION USE AGREEMENT 05/10/2009 Overview (12/30/2010): Sees [facility] in [place] for her pain meds - under contract w/ them since 11/2010 - pls do not refill any pain meds through PCP office. Other chronic pain 05/10/2009 Overview (12/30/2010): Chronic CHILDRESS and joint pains since CVA Sees [facility] in [place] for her pain meds - under contract w/ them since 11/2010 - pls do not refill any pain meds through PCP office. OLD MYOCARDIAL INFARCT 03/04/2009 Overview (03/04/2009): Modified by Acute [place] Protocol #5. 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 Study Titile: Genomics Markers for Patients with Cardiovascular Disease Project # [id number] PI: Magdalena Carbone MD Please call [phone] with study related questions CVA 05/02/2006 11/26/2008 Overview (11/26/2008): Modified per CVA protocol #8 ADVANCE DIRECTIVE INFORMATION 12/13/2004 06/16/2024 Overview (12/13/2004): Brochure given to pt. Acute GA 03/04/2009 Overview (03/04/2009): Modified by Acute [place] Protocol #5. PURE HYPERCHOLESTEROLEM 07/13 Overview (07/28/2009): Per Lipid Taxonomy. Need for prophylactic hormon e replacement therapy (postmenopausal) 07/28/2020 documented as of this encounter (statuses as of 08/11/2024) Immunizations Name Administration Dates Next Due COVID-19 mRNA, LNP-s, No Pre serve, 2-Dose Series (PremiTech) 06/20/2021,10/06/2020,09/15/2020 COVID-19, LNP-s, No Preserve , Sadi-sucrose, Ages 12+ (Pfizer) 12/20/2021 COVID-19, MRNA-LNP, PF, 30 M CG/0.3 mL, 12 YRS AND ABOVE, IM (PFIZER-Comirnaty) 06/24/2024,06/14/2023 Covid-19, Mrna, Lnp-s, Pf, B ivalent, 30 Mcg, IM, 12 yrs and above (PremiTech) 06/06/2022 Pneumococcal Conjugate Vacc, 13 Valent (Prevnar) [...] No 08/27/2023 Does the household have a [facility] source of income? (Household - for ages [...] Miscellaneous Notes * Telephone Encounter - Kayce Pa, - 08/11/2024 1:09 PM ESTSigned Prescriptions: Disp Refills HYDROcodone-Acetaminophen 7.5-325 MG Oral *90 Tab*0 Sig: Take 1 Tablet by mouth every 8 hours as needed for Pain, Severe.Authorizing Provider: KAYCE PA------- * Telephone Encounter - Kayce Pa DO - 08/11/2024 1:09 PM EST I have reviewed the patients controlled substance dispensing history in the Prescription Drug Monitoring Program in compliance with the [facility] regulations before prescribing a controlled substance. Last Tox Screen Results: Results for orders placed or performed in visit on 08/27/23 PAIN MANAGEMENT DRUG PANEL, URINE W/ INTERPRETATION Result Value Compliance Interpretation Based on the medication information provided: The presence of 7-aminoclonazepam is CONSISTENT with recent clonazepam use. Amphetamines Screen, U Negative Benzodiazepines Screen, U Refer to confirmation results (A) Cannabinoids Screen, U Negative Cocaine Metabolite Screen, U Negative Fentanyl Screen, U Negative Hydrocodone Screen, U Negative Methadone Metabolite Screen, U Negative Morphine/Codeine Screen, U Negative Oxycodone Screen, U Negative Valid Interpretation Normal Creatinine, U 118 Narrative Cutoff Concentrations: Drug Level Amphetamines 500 [...] can be found in Results Review. Medication due 08/10/2024 * Telephone Encounter - Jami Hope, [facility] - 08/11/2024 9:48 AM ESTPending Prescriptions: Disp Refills HYDROcodone-Acetaminophen 7.5-325 MG Oral *90 Tab*0 Sig: Take 1 Tablet by mouth every 8 hours as needed for Pain, Severe. * Telephone Encounter - Jami Hope [facility] - 08/11/2024 9:47 AM EST I have reviewed the patients controlled substance dispensing history in the Prescription Drug Monitoring Program in compliance with the [facility] regulations before prescribing a controlled substance. PDMP checked on 08/11/2024. Pending Prescriptions: Disp Refills HYDROcodone-Acetaminophen 7.5-325 MG Oral*90 Tab*0 Sig: Take 1 Tablet by mouth every 8 hours as needed for Pain, Severe. Last Visit: 04/30/2024 (in office), Visit date not found (telemedicine) Next Visit: 08/18/2024 Date medication was last filled: 07/11/24 Date medication is due for refill: 08/10/24 Pharmacy: [id number] Is this request for a controlled substance? Yes and Urine Drug Screen was completed Toxicology results: Results for orders placed or performed in visit on 08/27/23 PAIN MANAGEMENT DRUG PANEL, URINE W/ INTERPRETATION Result Value Compliance Interpretation Based on the medication information provided: The presence of 7-aminoclonazepam is CONSISTENT with recent clonazepam use. Amphetamines Screen, U Negative Benzodiazepines Screen, U Refer to confirmation results (A) Cannabinoids Screen, U Negative Cocaine Metabolite Screen, U Negative Fentanyl Screen, U Negative Hydrocodone Screen, U Negative Methadone Metabolite Screen, U Negative Morphine/Codeine Screen, U Negative Oxycodone Screen, U Negative Valid Interpretation Normal Creatinine, U 118 Narrative Cutoff Concentrations: Drug Level Amphetamines 500 [...] Jami Roche, Pharm D, BCACP Clinical Pharmacist [address] [place] [address] - Medication Therapy [facility] 08/11/2024, 9:48 AM Ph. [phone] documented in this encounter Plan of Treatment Upcoming Encounters Date Type Department Care Team (Late st Contact Info) Description 08/18/2024 11:10 AM EST Anticoagulation Family Practice [address] [place] [phone] [facility] Pharmacist [address] [place] [phone] 08/18/2024 11:20 AM EST Office Visit Family [address] [place] [phone] Kayce Pa, [address] [place] [address] 10/13/2024 3:00 PM EST Office Visit Cardiology, [facility] [address] [place] [address] Elton Lee PA-C [address] [place] [address] Health Maintenance Due Date Last Done Comments DISCUSS TOBACCO CESSATION (REFER TO SMARTSET #6225) 1955 Fecal Occult Blood Test 1998 Sigmoidoscopy [...] 01/12, 12/20/2021, Additional history exists Albumin/Creatinine Ratio 10/30/2026 10/31/2023, 12/2021 DTap/Tdap Vaccines (3 - Td or Tdap) 01/11/2032 01/10/2022, 10/15/2007 Alpha-1 Antitrypsin Completed 08/19/2021 Pneumococcal Vaccine: 50+ Years Completed 10/19/2021, 05/10/2020, 04/22/2019, Additional history exists Zoster Vaccines Completed 01/10/2022, 10/19/2021 VITAMIN D LEVEL ONCE IN A LIFETIME-USE SMARTSET# [id number] Completed 10/30/2023, 04/13/2022, 01/10/2022, Additional history exists [...] B, by GOLD 2017 classification ([facility]) Age-related osteoporosis without current pathological fracture Senile osteoporosis Cerebrovascular disease, arteriosclerotic, post-stroke Cerebral atherosclerosis Chronic systolic heart failure (HCC) Chronic systolic heart failure Coronary artery disease involving [place] coronary artery of [place] heart without angina pectoris Old myocardial infarct Old myocardial infarction Paroxysmal atrial fibrillation (HCC) Atrial fibrillation Dyslipidemia, goal LDL below 70 Other and unspecified hyperlipidemia Gastroesophageal reflux disease without esophagitis Esophageal reflux Adjustment disorder with mixed anxiety and depressed mood 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 S/P angioplasty with stent Postsurgical percutaneous transluminal coronary angioplasty status S/P aortic valve replacement Heart valve replaced by other means 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 Speech and language deficit, unspecified, late effect of cerebrovascular disease COPD, group B, by GOLD 2017 classification ([facility])- Primary Heart failure, systolic, due to CAD ([facility]) Unspecified systolic heart failure Paroxysmal atrial fibrillation (HCC) Atrial fibrillation Cerebrovascular disease, arteriosclerotic, post-stroke Cerebral atherosclerosis Advanced care planning/counseling discussion Other specified counseling Lumbar degenerative disc disease Degeneration of lumbar or lumbosacral intervertebral disc documented in this encounter Advance Directives Documents on File Type Date 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 Advance Directives and Living Will 06/17/2021 ADVANCE DIRECTIVE / LIVING WILL Power of Valver 06/17/2021 POWER OF A TTORNEY * Full Code (Latest Code Status on File) Date Activated Date Inactivated Comments 09/21/2008 9:29 AM 09/22/2008 3:05 PM Healthcare Agents on File Name Relationship Healthcare Agent Relationship Communication Fanny Fernandez Other - (no specific identity) Health Care Agent (per Health Care Power of Valver document) Care Teams Contracts Paralegal Relationship Specialty Start Date End Date Kayce Pa DO [address] [facility] [place] [address] PCP - General Internal Medicine 01/24/24 documented as of this encounter
--- OUTSIDE RECORDS SUMMARY | 2024-11-07 07:15 | External Medical Summary ---
Author Name Unknown Address Unknown Organization [id number]:[facility] [place] [address] [facility] [place] [address] Laboratory Report Ordering Provider Test Date Status KAROLINA DEVRIES 08/20/2024 10:05:34 Final Observation Date Value Abnormality Reference (Units ) Status SYNC LEUKOCYTES IN BLOOD BY AUTOMATED COUNT 08/20/2024 10:05:34 8.88 4.00-10.80 (K/uL) Final Segs 08/20/2024 10:05:34 67.6 40.0-75.0 (%) Final Lymphs % 08/20/2024 10:05:34 19.8 18.0-42.0 (%) Final Monos 08/20/2024 10:05:34 9.5 1.0-11.0 (%) Final Eosinophils 08/20/2024 10:05:34 2.0 0.0-6.0 (%) Final Basos 08/20/2024 10:05:34 0.9 0.0-2.0 (%) Final Immature Granulocyte, Percent 08/20/2024 10:05:34 0.2 0.0-2.0 (%) Final Absolute Segs 08/20/2024 10:05:34 6.00 1.80-7.70 (K/uL) Final Lymphs, absolute 08/20/2024 10:05:34 1.76 1.00-4.80 (K/ul) Final Monos, Abs 08/20/2024 10:05:34 0.84 0.00-1.10 (K/uL) Final Eos, Abs 08/20/2024 10:05:34 0.18 0.00-0.70 (K/uL) Final Basos, Abs 08/20/2024 10:05:34 0.08 0.00-0.20 (K/uL) Final Immature Granulocytes, Number 08/20/2024 10:05:34 0.02 0.00-0.20 (K/uL) Final Performing Location [facility] [place] [address] [facility] [address]
--- OUTSIDE RECORDS SUMMARY | 2024-11-07 07:15 | External Medical Summary ---
Author Name Unknown Address Unknown Organization [id number]:[facility] [place] [address] [facility] [place] [address] Laboratory Report Ordering Provider Test Date Status KAROLINA DEVRIES 08/20/2024 10:05:34 Final Observation Date Value Abnormality Reference (Units ) Status BUN 08/20/2024 10:05:34 11 6-20 (mg/dL) Final Creatinine 08/20/2024 10:05:34 1.2 Above high normal 0.5-1.0 (mg/dL) Final Glomerular filtration rate/1.73 sq M.predicted [Volume Rate/Area] in Serum, Plasma or Blood by Creatinine-based formula (CKD-EPI) 08/20/2024 10:05:34 51 Below low normal >=60 (mL/min) Final eGFR is calculated based on the CKD-EPI 2020 equation. Sodium 08/20/2024 10:05:34 140 135-146 (m mol/L) Final Potassium 08/20/2024 10:05:34 4.9 3.5-5.1 (m mol/L) Final Cl 08/20/2024 10:05:34 100 98-107 (mm ol/L) Final CO2 08/20/2024 10:05:34 31 22-32 (mmo l/L) Final Anion gap 08/20/2024 10:05:34 9 7-15 (mmol /L) Final Glucose 08/20/2024 10:05:34 93 70-120 (mg /dL) Final Albumin 08/20/2024 10:05:34 4.2 3.8-5.0 (g /dL) Final AST (Aspartate aminotransferase) 08/20/2024 10:05:34 18 10-35 (U/L) Final Alk Phos 08/20/2024 10:05:34 119 35-130 (U/ L) Final Bilirubin, Total 08/20/2024 10:05:34 0.2 <=1 .2 (mg/dL) Final Calcium 08/20/2024 10:05:34 9.8 8.4-10.2 ( mg/dL) Final Protein 08/20/2024 10:05:34 6.5 6.0-8.3 (g /dL) Final ALT (Alanine aminotransferase) 08/20/2024 10:05:34 15 10-35 (U/L) Final Performing Location [facility] [place] - [facility] [address] [facility] [address]
--- OUTSIDE RECORDS SUMMARY | 2024-11-07 07:15 | External Medical Summary ---
Author Name Unknown Address Unknown Organization K01:[facility] [place] [address] [place] [address] Laboratory Report Ordering Provider Test Date Status KAROLINA DEVRIES 08/20/2024 10:05:34 Final Observation Date Value Abnormality Reference (Units ) Status Vitamin B12 08/20/2024 10:05:34 [phone] (pg/mL) Final Performing Location LABORATORY [facility] - [address] [place] [address]
--- OUTSIDE RECORDS SUMMARY | 2024-11-07 07:15 | External Medical Summary ---
Author Name Unknown Address Unknown Organization [id number]:[facility] [place] [address] [facility] [address] Laboratory Report Ordering Provider Test Date Status KAROLINA DEVRIES 08/19/2024 12:07:05 Final Drugs that require complianc e testing:

Opioids:
Hydrocodone: Quantity Date/Time of last Dose 829 today

Benzodiazepines
None

Cutoff Concentrations:
Drug Level
Amphetamines 500 ng/mL
Benzodiazepines 100 ng/mL
Cannabinoids 50 ng/mL
Cocaine Metabolite 150 ng/mL
Fentanyl 1 ng/mL
Hydrocodone / Hydromorphone 300 ng/mL
Methadone Metabolite 100 ng/mL
Morphine / Codeine 300 ng/mL
Oxycodone / Oxymorphone 100 ng/mL

Screening results are presumptive and can only be used for medical purposes. Confirmatory testing is available upon request. Observation Date Value Abnormality Reference (Units) Status COMPLIANCE INTERPRETATION 08/19/2024 12:07:05 Based on the medication information provided: Final COMPLIANCE INTERPRETATION 08/19/2024 12:07:05 The presence of hydrocodone, dihydrocodeine and hydromorphone is CONSISTENT with hydrocodone use. Final Changed Report: Previously r eported on 08/20/2024 at 1041 EST. See Results History in EPIC for previous versions of the report. Amphetamines, Urine screen 08/19/2024 12:07:05 Negative Negative Final Benzodiazepines, Urine screen 08/19/2024 12:07:05 Negative Negative Final Cannabinoids, Urine screen 08/19/2024 12:07:05 Negative Negative Final Cocaine Metabolite, Urine screen 08/19/2024 12:07:05 Negative Negative Final fentaNYL [Presence] in Urine by Screen method 08/19/2024 12:07:05 Negative Negative Final HYDROcodone [Presence] in Urine by Screen method 08/19/2024 12:07:05 Refer to confirmation results Abnormal Negative Final 6-Jzzspuihdw-8,5-Dimeth yl-3,3-Diphenylpyrrolid ine (EDDP) [Presence] in Urine 08/19/2024 12:07:05 Negative Negative Final Opiates, Urine screen 08/19/2024 12:07:05 Refer to confirmation results Abnormal Negative Final oxyCODONE [Presence] in Urine by Screen method 08/19/2024 12:07:05 Refer to confirmation results Abnormal Negative Final FORENSIC VALID INTERPRETATION 08/19/2024 12:07:05 Normal Final Creatinine, Urine 08/19/2024 12:07:05 124 (mg/dL) Final Performing Location [facility] [place] - [address] [facility] [address]
--- OUTSIDE RECORDS SUMMARY | 2024-11-07 07:15 | External Medical Summary | Summary of Care ---
Author Name Unknown Organization [facility] Address [address] [place] [address] Phone [phone] Care Team Providers Care Credit Collections Specialist Name Role Phone Abdon Pa DO Primary Care Provider [phone] Reason for Visit * Reason Comments Dosage Adjustment In Person (Anticoag Cl inic) Immunizations Encounter Details Date Type Department Care Team (Late st Contact Info) Description 07/18/2024 1:00 PM EST Anticoagulation Family Practice [address] [phone] College, Pharmacist [address] [address] Anticoagulation management encounter*; Cerebrovascular disease, arteriosclerotic, post-stroke; rn long term care current use of 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; Need for RSV vaccination Allergies Active Allergy Reactions Criticality Noted Date Comments Clopidogrel Edema face/lips/tongue High 06/03/2020 Other Reaction(s): SWELLING OF FACE/LIPS/TONGUE Oxycodone Edema Other High 12/05/2022 Percodan 11/23/2000 edema Ticagrelor Edema face/lips/tongue High 07/28/2020 Other Reaction(s): SWELLING OF FACE/LIPS/TONGUE documented as of this encounter (statuses as of 07/18/2024) Medications Aspirin 81 MG Oral Tablet ChewableIndicatio ns:Coronary artery disease involving resighini heart without angina pectoris, unspecified vessel or [...] failure, systolic, due to CAD ([facility]),SOB (shortness of breath),COPD, group B, by GOLD 2017 classification ([facility]),Chronic respiratory failure with hypoxia ([facility]) Portable unit thru [employer]. 2 LPM continuous. 1 Each 05/14/20 23 Active Additional Information Patient taking differently: Portable unit thru [employer].4 LPM continuous., Reported on 11/22/2023 Ventolin HFA 108 (90 Base) MCG/ACT Inhalation Aerosol SolutionIndicatio ns:Asthma with COPD (chronic obstructive pulmonary disease) ([facility]) Inhale 2 Puffs by mouth every [...] failure, systolic, due to CAD ([facility]) Take 1 Tablet by mouth once [...] 2 4 10:51 AM EST 03/27/20 24 025 Active Famotidine 20 MG Oral Tablet (Pepcid)Indicatio ns:Gastroesophage al reflux disease without esophagitis TAKE ONE TABLET BY MOUTH EVERY MORNING 100 Tablet 3 4 8:57 AM EST 04/02/20 24 025 Active Desvenlafaxine Succinate ER 100 MG Oral Tablet Extended Release 24 Hour (Pristiq)Indicati ons:Moderate episode of recurrent major depressive disorder (HCC) Take 1 Tablet by mouth in the morning. 90 Tablet 1 4 11:55 AM EDT 04/28/20 24 Active Pantoprazole Sodium 40 MG [...] Tablet 4 7:41 AM EDT 05/22/20 24 025 Active amLODIPine Besylate 2.5 MG Oral Tablet [...] mg per tab)Indications:C oronary artery disease involving resighini heart without angina pectoris, unspecified vessel or [...] for Pain, Severe. 90 Tablet 07/11/20 24 Active Arexvy 120 MCG/0.5ML Intramuscular Suspension Reconstituted (RSV PreF3 Vac Recomb Adjuvanted)Indica tions:Need for RSV vaccination Inject 0.5 mL into a large muscle once for 1 dose. 1 Each 07/18/20 24 024 Active Hospital, Clinic, or Other Facility Administered Medication Ordered Dose Route Frequency Start Date End Date Status vitamin b-12 (Cyanocobalamin) inj 1,000 mcgIndications:Vitamin B 12 deficiency 1000 mcg IM [id number] 04/01/2024 03/03/2025 Active documented as of this encounter (statuses as of 07/18/2024) Active Problems Problem Noted Date Diagnosed Date [...] Inhaler Self-Management plan Other/Additional Comments: will contact [facility] Exacerbation plan Chest Xray Assessment & [...] MEDICATION USE AGREEMENT 05/10/2009 Overview (12/30/2010): Sees [facility] in [place] for her pain meds - under contract w/ them since 11/2010 - pls do not refill any pain meds through PCP office. Other chronic pain 05/10/2009 Overview (12/30/2010): Chronic CHILDRESS and joint pains since CVA Sees [facility] in [place] for her pain meds - under contract w/ them since 11/2010 - pls do not refill any pain meds through PCP office. OLD MYOCARDIAL INFARCT 03/04/2009 Overview (03/04/2009): Modified by Acute [place] Protocol #5. 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 Study Titile: Genomics Markers for Patients with Cardiovascular Disease Project # [id number] PI: Magdalena Carbone MD Please call [phone] with study related questions CVA 05/02/2006 11/26/2008 Overview (11/26/2008): Modified per CVA protocol #8 ADVANCE DIRECTIVE INFORMATION 12/13/2004 06/16/2024 Overview (12/13/2004): Brochure given to pt. Acute PR 03/04/2009 Overview (03/04/2009): Modified by Acute [place] Protocol #5. PURE HYPERCHOLESTEROLEM 07/13 Overview (07/28/2009): Per Lipid Taxonomy. Need for prophylactic hormon e replacement therapy (postmenopausal) 07/28/2020 documented as of this encounter (statuses as of 07/18/2024) Immunizations Name Administration Dates Next Due COVID-19 mRNA, LNP-s, No Pre serve, 2-Dose Series ([employer]) 06/20/2021,10/06/2020,09/15/2020 COVID-19, LNP-s, No Preserve , Sadi-sucrose, [...] on file documented as of this encounter Patient Instructions * Patient Instructions* Jami Hope, [facility] - 07/18/2024 1:22 PM EST Possible side effects of RSV vaccine, (Respiratory Syncytial Virus), are usually mild and can include: Soreness, swelling or redness at injection site Low grade fever Body aches or joint pain Headache Nausea or diarrhea You may use a fever/pain reducing medication for these symptoms. LET YOUR DOCTOR KNOW IMMEDIATELY IF YOU HAVE DIFFICULTY BREATHING OR SWALLOWING, EXPERIENCE ITCHINGOF FEET OR HANDS, HAVE SWELLING OF EYES, FACE OR INSIDE OF NOSE. documented in this encounter Progress Notes * Nell Hensley RPh - 07/18/2024 3:00 PM EST Medication Therapy Disease Management - Anticoagulation Patient: Malia Nice | : 1955 Subjective Patient-Reported Symptoms: Patient Findings Positives: Missed doses (missed 1-2 nights in the last month) Negatives: Signs/symptoms of thrombosis, Signs/symptoms of bleeding, Change in health, Change in alcohol use, Change in activity, Upcoming invasive procedure, Extra doses, Change in medications, Change in diet/appetite, Bruising Objective Current Warfarin Dose As of 07/18/2024 Warfarin maintenance plan: 2.5 mg (2.5 mg x 1) every day INR Result As of 07/18/2024 INR goal: 2.0-3.0 INR used for dosin.5 (07/18/2024) Assessment & Plan Warfarin Plan As of 07/18/2024 Full warfarin instructions: 2.5 mg every day No change documented: Nell Hensley RPh Next INR check: 08/18/2024 Repeat PT/INR in 4 week(s) Weekly dose: not changed Additional Dosing Information: I spent a total of 10-19 minutes (exact time 12 mins) on the date of service in preparation, delivery, and documentation of the care provided to Malia Nice excluding any time spent in the performance of separately billed services or time spent by another provider/QHP. Nell Hensley PharmD, LINETTE PGY1 Correspondence Dictator Medication Therapy Management Clin[facility] [place] 07/18/2024 3:01 PM documented in this encounter Plan of Treatment Upcoming Encounters Date Type Department Care Team (Late st Contact Info) Description 08/18/2024 11:10 AM EST Anticoagulation Family Practice 65 [facility] [address] [place] [phone] College, Pharmacist [address], [place] [address] 08/18/2024 11:20 AM EST Office Visit Family Practice 65 [facility] [address] [place] [phone] Abdon Pa, [address] [place] [address] 10/13/2024 3:00 PM EST Office Visit Cardiology, [facility] [address] [place] [address] Elton Lee PAChrisC [address] [facility] [place] [address] Health Maintenance Due Date Last Done Comments DISCUSS TOBACCO CESSATION (REFER TO SMARTSET #9173) 1955 Fecal Occult Blood Test 1998 Sigmoidoscopy 1998 Colonoscopy 12/27/2020 12/27/2010 Adult Wellness Visit 07/14/2023 07/14/2022, 03/01/20 21 Mammogram 08/23/2023 08/23/2022, 0 11/2021, 08/16/2021, Additional history exists Cologuard 08/29/2024 08/29/2021, 0 10/2021, 08/15/2021 Colorectal Cancer Screening 08/29/2024 GFR 10/29/2024 10/30/2023, 08/14, 04/19/2023, Additional history exists Depression Monitoring 11/12/2024 11/13/2023 O2 ASSESSMENT COMPLETED IN PAST YEAR FOR COPD 04/30/2025 04/30/2024 DXA Scan 02/04/2026 02/05/2024, 01/12, 12/20/2021, Additional history exists Albumin/Creatinine Ratio 10/30/2026 10/31/2023, 10/12/2021 DTap/Tdap Vaccines (3 - Td or Tdap) 01/11/2032 01/10/2022, 10/15/2007 Alpha-1 Antitrypsin Completed 08/19/2021 Pneumococcal Vaccine: 65+ Years Completed 10/19/2021, 05/10/2020, 04/22/2019, Additional history exists Zoster Vaccines Completed 01/10/2022, 10/19/2021 VITAMIN D LEVEL ONCE IN A LIFETIME-USE SMARTSET# [id number] Completed 10/30/2023, 04/13/2022, 01/10/2022, Additional history exists [...] Comments INR FINGERSTICK, POINT OF CARE STAT 07/18/2024 1:07 PM EST Cerebrovascular disease, arteriosclerotic, post-stroke Anticoagulation management encounter [facility]iary current use of 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 documented in this encounter Results * INR FINGERSTICK, POINT OF CARE (07/18/2024 1:07 PM EST) Fingerstick INR 2.5 INR 1:11 PM EST [facility] [facility] 56-21 Blood 07/18/2024 1:07 PM EST 07/18/2024 1:11 PM EST Narrative [facility] 56-21 - 07/18/2024 1:11 PM EST Therapeutic ranges for non-operative patients: Prophylaxsis/treatment of DVT: (Range:2.0-3.0) Treatment of pulmonary embolism:(Range:2.0-3.0) Prevention of systemic embolism from: -tissue heart valves -acute myocardial infarction -valvular heart disease -atrial fibrillation (Range: 2.0-3.0) Mechanical prosthetic valves: (Range: 2.5-3.5) Jami Roche [facility] LAB PO INT OF CARE TEST DOCKED DEVICE UNSOLICITED RESULTS Final Result [address] [place] [address], [facility] documented in this encounter Visit Diagnoses Diagnosis Advanced care planning/counseling discussion- Primary Other specified counseling COPD, group B, by GOLD 2017 classification ([facility]) Age-related osteoporosis without current pathological fracture Senile osteoporosis Cerebrovascular disease, arteriosclerotic, post-stroke Cerebral atherosclerosis Chronic systolic heart failure (HCC) Chronic systolic heart failure Coronary artery disease involving resighini coronary artery of resighini heart without angina pectoris Old myocardial infarct Old myocardial infarction Paroxysmal atrial fibrillation (HCC) Atrial fibrillation Dyslipidemia, goal LDL below 70 Other and unspecified hyperlipidemia Gastroesophageal reflux disease without esophagitis Esophageal reflux Adjustment disorder with mixed anxiety and depressed mood [facility]iary current use of 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 S/P angioplasty with stent Postsurgical percutaneous transluminal coronary angioplasty status S/P aortic valve replacement Heart valve replaced by other means 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 Speech and language deficit, unspecified, late effect of cerebrovascular disease COPD, group B, by GOLD 2017 classification ([facility])- Primary Heart failure, systolic, due to CAD (HCC) Unspecified systolic heart failure Paroxysmal atrial fibrillation (HCC) Atrial fibrillation Cerebrovascular disease, arteriosclerotic, post-stroke Cerebral atherosclerosis Advanced care planning/counseling discussion Other specified counseling Anticoagulation management encounter- Primary Encounter for therapeutic drug monitoring Cerebrovascular disease, arteriosclerotic, post-stroke Cerebral atherosclerosis [facility] current use of 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 Need for RSV vaccination Need for prophylactic vaccination and inoculation against respiratory syncytial virus documented in this encounter Advance Directives Documents on File Type Date Recorded Patient Hog Cooler Expl anation Advance Directives and Living Will 06/17/2021 ADVANCE DIRECTIVE / LIVING WILL Power of Oil Pipeline Operator 06/17/2021 POWER OF A TTORNEY * Full Code (Latest Code Status on File) Date Activated Date Inactivated Comments 09/21/2008 9:29 AM 09/22/2008 3:05 PM Healthcare Agents on File Name Relationship Healthcare Agent Relationship Communication Fanny Fernandez Other - (no specific identity) Health Care Agent (per Health Care Power of Oil Pipeline Operator document) Care Teams Credit Collections Specialist Relationship Specialty Start Date End Date Abdon Pa DO [address] [place] [address] PCP - General Internal Medicine 01/24/24 documented as of this encounter
--- OUTSIDE RECORDS SUMMARY | 2024-11-07 07:15 | External Medical Summary | Summary of Care ---
Author Name Unknown Organization [facility] Address [address] [place] [address] Phone [phone] Care Team Providers Care Oracle Hrms Developer Name Role Phone Abdon Pa DO Primary Care Provider [phone] Reason for Visit * Reason Onset Date Comments Immunization RSV Vaccine 07/18/2024 Encounter Details Date Type Department Care Team (Late st Contact Info) Description 07/18/2024 1:30 PM EST Nurse Only Family Practice [address] [phone] College, Nurse [facility] Prac [address] [address] Immunization RSV Vaccine Allergies Active Allergy Reactions Criticality Noted Date Comments Clopidogrel Edema face/lips/tongue High 06/03/2020 Other Reaction(s): SWELLING OF FACE/LIPS/TONGUE Oxycodone Edema Other High 12/05/2022 Percodan 11/23/2000 edema Ticagrelor Edema face/lips/tongue High 07/28/2020 Other Reaction(s): SWELLING OF FACE/LIPS/TONGUE documented as of this encounter (statuses as of 08/14/2024) Medications Aspirin 81 MG Oral Tablet ChewableIndicatio ns:Coronary artery disease involving [place] heart without angina pectoris, unspecified vessel or [...] failure, systolic, due to CAD ([facility]),SOB (shortness of breath),COPD, group B, by GOLD 2017 classification ([facility]),Chronic respiratory failure with hypoxia ([facility]) Portable unit thru [employer]. 2 LPM continuous. 1 Each 05/14/20 23 Active Additional Information Patient taking differently: Portable unit thru [employer].4 LPM continuous., Reported on 11/22/2023 Ventolin HFA 108 (90 Base) MCG/ACT Inhalation Aerosol SolutionIndicatio ns:Asthma with COPD (chronic obstructive pulmonary disease) ([facility]) Inhale 2 Puffs by mouth every 4 [...] failure, systolic, due to CAD ([facility]) Take 1 Tablet by mouth once a [...] of recurrent major depressive disorder ([facility]) Take 1 Tablet by mouth at bedtime [...] mg per tab)Indications:C oronary artery disease involving [place] heart without angina pectoris, unspecified vessel or [...] mcgIndications:Vitamin B 12 deficiency 1000 mcg IM [id number] 04/01/2024 03/03/2025 Active documented as of this encounter (statuses as of 08/14/2024) Active Problems Problem Noted Date Diagnosed Date [...] MEDICATION USE AGREEMENT 05/10/2009 Overview (12/30/2010): Sees [facility] in [place] for her pain meds - under contract w/ them since 11/2010 - pls do not refill any pain meds through PCP office. Other chronic pain 05/10/2009 Overview (12/30/2010): Chronic CHILDRESS and joint pains since CVA Sees [facility] in [place] for her pain meds - under contract w/ them since 11/2010 - pls do not refill any pain meds through PCP office. OLD MYOCARDIAL INFARCT 03/04/2009 Overview (03/04/2009): Modified by Acute [place] Protocol #5. 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 Study Titile: Genomics Markers for Patients with Cardiovascular Disease Project # [id number] PI: Magdalena Carbone MD Please call [phone] with study related questions CVA 05/02/2006 11/26/2008 Overview (11/26/2008): Modified per CVA protocol #8 ADVANCE DIRECTIVE INFORMATION 12/13/2004 06/16/2024 Overview (12/13/2004): Brochure given to pt. Acute CO 03/04/2009 Overview (03/04/2009): Modified by Acute [place] Protocol #5. PURE HYPERCHOLESTEROLEM 07/13 Overview (07/28/2009): Per Lipid Taxonomy. Need for prophylactic hormon e replacement therapy (postmenopausal) 07/28/2020 documented as of this encounter (statuses as of 08/14/2024) Immunizations Name Administration Dates Next Due COVID-19 mRNA, LNP-s, No Pre serve, 2-Dose Series ([employer]) 06/20/2021,10/06/2020,09/15/2020 COVID-19, LNP-s, No Preserve , Sadi-sucrose, [...] No 08/27/2023 Does the household have a [facility] source of income? (Household - for [...] this encounter Patient Instructions * Patient Instructions* Becki Mora LPN - 07/18/2024 1:20 PM EST Possible side effects of RSV [...] documented in this encounter Progress Notes * Jami Hope [facility] - 07/18/2024 1:29 PM EST Pre-Administration Time Out Procedure Performed: Yes Patient Identified (Ask Name/Date of ): Yes Does the patient have a fever greater than 101 degrees today? No Patient allergic to latex? No Has the patient ever fainted after receiving an injection? No VFC Stock: No Immunization(s) verified: Yes, Immunization Name: RSV arexvy, VIS Sheet(s) given: Yes Verified Side and Site: Yes Verified Shot(s) with Parent(s)/Patient: Yes Jami Roche, Pharm D, BCACP Clinical Pharmacist 65 [facility] Medication Therapy Disease Management [facility] 07/18/2024, 1:30 PM Ph. [phone] documented in this encounter Plan of Treatment Upcoming Encounters Date Type Department Care Team (Late st Contact Info) Description 08/18/2024 11:10 AM EST Anticoagulation Family Practice [address] [place] [address] [facility] [phone] College, Pharmacist [address] [place] [address] 08/18/2024 11:20 AM EST Office Visit Family Practice 65 [facility] [address] [facility] [phone] Ab[place] [facility] DO [address] [facility] [address] 10/13/2024 3:00 PM EST Office Visit Cardiology, [facility] [address] [place] [address] Elton Lee PA-C [address] [place] [address] Health Maintenance Due Date Last Done Comments DISCUSS TOBACCO CESSATION (REFER TO SMARTSET #9101) 1955 Fecal Occult Blood Test 1998 Sigmoidoscopy [...] D LEVEL ONCE IN A LIFETIME-USE SMARTSET# [id number] Completed 10/30/2023, 04/13/2022, 01/10/2022, Additional history exists [...] systolic heart failure Coronary artery disease involving [place] coronary artery of [place] heart without angina pectoris Old myocardial infarct Old myocardial infarction Paroxysmal atrial fibrillation (HCC) Atrial fibrillation Dyslipidemia, goal LDL below 70 Other and unspecified hyperlipidemia Gastroesophageal reflux disease without esophagitis Esophageal reflux Adjustment disorder with mixed anxiety and depressed mood intermediate current use of 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 S/P angioplasty [...] Advanced care planning/counseling discussion Other specified counseling Need for RSV vaccination- Primary Need for prophylactic vaccination and inoculation against respiratory syncytial virus documented in this encounter Administered Medications Active Administered Medications - up to 3 most recent administrations Medication Order MAR Action Action Date Dose Rate Site vitamin b-12 (Cyanocobalamin) inj 1,000 mcg 1,000 mcg, Intramuscular, [id number], First dose on Sun04/01/24 at 1345, Last dose on Sun02/03/25 at 1345, For 12 dosesIndications:Vitamin B 12 deficiency Given 07/18/2024 1:18 PM EST 1,000 mcg Arm Left Upper Given 06/24/2024 1:19 PM EST 1,000 mcg Ar m Left Upper Given 05/27/2024 1:33 PM EDT 1,000 mcg De ltoid Left Upper documented in this encounter Advance Directives Documents on File Type Date Recorded Patient Cell Inspector Expl anation Advance Directives and Living Will 06/17/2021 ADVANCE DIRECTIVE / LIVING WILL Power of Aerotriangulation Specialist 06/17/2021 POWER OF A TTORNEY * Full Code (Latest Code Status on File) Date Activated Date Inactivated Comments 09/21/2008 9:29 AM 09/22/2008 3:05 PM Healthcare Agents on File Name Relationship Healthcare Agent Relationship Communication Fanny Fernandez Other - (no specific identity) Health Care Agent (per Health Care Power of Aerotriangulation Specialist document) Care Teams Oracle Hrms Developer Relationship Specialty Start Date End Date Abdon Pa DO [address] [place] [address] PCP - General Internal Medicine 01/24/24 documented as of this encounter
--- OUTSIDE RECORDS SUMMARY | 2024-11-07 07:15 | External Medical Summary ---
Author Name Unknown Address Unknown Organization K01:LABORATORY [facility] - [address] [place] [address] Laboratory Report Ordering Provider Test Date Status [place] 08/20/2024 10:05:34 Final Deficient: <20 ng/mL
Ins ufficient: 20-29 ng/mL
Recommended/Optimum:30-50 ng/mL

Vitamin D intoxication is rare. If suspicious of Vitamin D toxicity, evaluation of serum Calcium and PTH is recommended. Observation Date Value Abnormality Reference (Units ) Status 25-OH Vitamin D total 08/20/2024 10:05:34 18 Below low normal >19 (ng/mL) Final Performing Location LABORATORY [facility] - [address] [place] [address]
--- OUTSIDE RECORDS SUMMARY | 2024-11-07 07:15 | External Medical Summary ---
Author Name Unknown Address Unknown Organization : Laboratory Report Ordering Provider Test Date Status ROGELIO VALVERDE 08/19/2024 11:47:39 Final Therapeutic ranges for non-o perative patients:
Prophylaxsis/treatment of DVT: (Range:2.0-3.0)
Treatment of pulmonary embolism:(Range:2.0-3.0)
Prevention of systemic embolism from:
-tissue heart valves
-acute myocardial infarction
-valvular heart disease
-atrial fibrillation
(Range: 2.0-3.0)
Mechanical prosthetic valves: (Range: 2.5-3.5) Observation Date Value Abnormality Reference (Units ) Status INR in Capillary blood by Coagulation assay 08/19/2024 11:47:39 2.2 (INR) Final Performing Location
--- OUTSIDE RECORDS SUMMARY | 2024-11-07 07:15 | External Medical Summary ---
Author Name Unknown Address Unknown Organization K01:[facility] [place] - [address] [place] [address] Laboratory Report Ordering Provider Test Date Status KAROLINA DEVRIES 08/19/2024 12:07:05 Final Normal: <30 mg/g creatinine< br/>High: 30-300 mg/g creatinine
Very High: >300 mg/g creatinine
Nephrotic: >2200 mg/g creatinine Observation Date Value Abnormality Reference (Units ) Status Albumin, Urine 08/19/2024 12:07:05 3.00 (mg/dL) Final Creatinine, Urine 08/19/2024 12:07:05 133 (mg/dL) Final Albumin/Creatinine [Mass Ratio] in Urine 08/19/2024 12:07:05 23 <30 (mg/g Creat) Final Performing Location [facility] [place] - [address] [address]
--- OUTSIDE RECORDS SUMMARY | 2024-11-07 07:15 | External Medical Summary | Summary of Care ---
Author Name Unknown Organization [facility] Address [address] [place] [address] Phone [phone] Care Team Providers Care Neck Pinner Name Role Phone Abdon Pa DO Primary Care Provider [phone] Encounter Details Date Type Department Care Team (Late st Contact Info) Description 08/14/2024 Population Health External Data Unspecified Department Allergies Active Allergy Reactions Criticality Noted Date Comments Clopidogrel Edema face/lips/tongue High 06/03/2020 Other Reaction(s): SWELLING OF FACE/LIPS/TONGUE Oxycodone Edema Other High 12/05/2022 Percodan 11/23/2000 edema Ticagrelor Edema face/lips/tongue High 07/28/2020 Other Reaction(s): SWELLING OF FACE/LIPS/TONGUE documented as of this encounter (statuses as of 08/19/2024) Medications Aspirin 81 MG Oral Tablet ChewableIndicatio ns:Coronary artery disease involving [place] heart without angina pectoris, unspecified vessel or [...] breath),COPD, group B, by GOLD 2017 classification ([facility]),Chronic respiratory failure with hypoxia ([facility]) Portable unit thru [employer]. 2 LPM continuous. 1 Each 05/14/20 Active Additional Information Patient taking differently: Portable unit thru [employer].4 LPM continuous., Reported on 11/22/2023 Ventolin HFA 108 (90 Base) MCG/ACT Inhalation Aerosol SolutionIndicatio ns:Asthma with COPD (chronic obstructive pulmonary disease) ([facility]) Inhale 2 Puffs by mouth every 4 [...] (Lasix)Indication s:Heart failure, systolic, due to CAD ([facility]) Take 1 Tablet by mouth once a day on Sunday, Sunday, and Sunday only. 30 Tablet 5 11/02/19 24 Active hydrOXYzine HCl 25 MG Oral Tablet Take 1 Tablet by mouth 3 times a day as needed for Itching. 180 Tablet 2 4 12:55 PM EST 02/11/20 24 Active Mirtazapine 45 MG Oral Tablet (Remeron)Indicati ons:Anxiety state,Moderate episode of recurrent major depressive disorder ([facility]) Take 1 Tablet by mouth at bedtime [...] mg per tab)Indications:C oronary artery disease involving [place] heart without angina pectoris, unspecified vessel or lesion type Take 1 Tablet by mouth in the morning and 1 Tablet before bedtime. 180 Tablet 3 4 5:53 PM EST 06/23/20 Active Ondansetron HCl 4 MG Oral Tablet (Zofran)Indicatio ns:Nausea TAKE ONE TABLET BY MOUTH EVERY 8 HOURS NEEDED FOR NAUSEA 30 Tablet 4 1:50 PM EST 06/30/20 Active HYDROcodone-Aceta minophen 7.5-325 MG Oral TabletIndications :Lumbar degenerative disc disease Take 1 Tablet by mouth every 8 hours as needed for Pain, Severe. 90 Tablet 08/11/20 24 Active Hospital, Clinic, or Other Facility Administered Medication Ordered Dose Route Frequency Start Date End Date Status vitamin b-12 (Cyanocobalamin) inj 1,000 mcgIndications:Vitamin B 12 deficiency 1000 mcg IM [id number] 04/01/2024 03/03/2025 Active documented as of this encounter (statuses as of 08/19/2024) Active Problems Problem Noted Date Diagnosed Date [...] Inhaler Self-Management plan Other/Additional Comments: will contact [facility] Exacerbation plan Chest Xray Assessment & [...] 05/10/2009 Overview (12/30/2010): Sees [facility] in [place] for her pain meds - under contract w/ them since 11/2010 - pls do not refill any pain meds through PCP office. Other chronic pain 05/10/2009 Overview (12/30/2010): Chronic CHILDRESS and joint pains since CVA Sees [facility] in [place] for her pain meds - under contract w/ them since 11/2010 - pls do not refill any pain meds through PCP office. OLD MYOCARDIAL INFARCT 03/04/2009 Overview (03/04/2009): Modified by [facility] [place] Protocol #5. 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 Study Titile: Genomics Markers for Patients with Cardiovascular Disease Project # [id number] PI: Magdalena Carbone MD Please call [phone] with study related questions CVA 05/02/2006 11/26/2008 Overview (11/26/2008): Modified per CVA protocol #8 ADVANCE DIRECTIVE INFORMATION 12/13/2004 06/16/2024 Overview (12/13/2004): Brochure given to pt. Acute [place] 03/04/2009 Overview (03/04/2009): Modified by [facility] [place] Protocol #5. PURE HYPERCHOLESTEROLEM 07/13 Overview (07/28/2009): Per Lipid Taxonomy. Need for prophylactic hormon e replacement therapy (postmenopausal) 07/28/2020 documented as of this encounter (statuses as of 08/19/2024) Immunizations Name Administration Dates Next Due COVID-19 mRNA, LNP-s, No Pre serve, 2-Dose Series ([employer]) 06/20/2021,10/06/2020,09/15/2020 COVID-19, LNP-s, No Preserve , Sadi-sucrose, Ages 12+ (Pfizer) 12/20/2021 COVID-19, MRNA-LNP, PF, 30 M CG/0.3 mL, 12 YRS AND ABOVE, IM ([facility]) 06/24/2024,06/14/2023 Covid-19, Mrna, Lnp-s, Pf, B ivalent, 30 Mcg, IM, 12 yrs and above ([employer]) 06/06/2022 Pneumococcal Conjugate Vacc, 13 Valent (Prevnar) [...] on file Are you (or your family) jayn eless or worried that you might be [...] Care Team (Late st Contact Info) Description 10/13/2024 3:00 PM EST Office Visit Cardiology, [facility] [address] [place] [address] Elton Lee PA-C [address] [place] [address] Health Maintenance Due Date Last Done Comments DISCUSS TOBACCO CESSATION (REFER TO SMARTSET #6963) 1955 Fecal Occult Blood Test 1998 Sigmoidoscopy [...] D LEVEL ONCE IN A LIFETIME-USE SMARTSET# [id number] Completed 10/30/2023, 04/13/2022, 01/10/2022, Additional history exists [...] Documents on File Type Date Recorded Patient Orthotic/Prosthetic Clinician Expl anation Advance Directives and Living Will 06/17/2021 ADVANCE DIRECTIVE / LIVING WILL Power of Network Developer 06/17/2021 POWER OF A TTORNEY * Full Code (Latest Code Status on File) Date Activated Date Inactivated Comments 09/21/2008 9:29 AM 09/22/2008 3:05 PM Healthcare Agents on File Name Relationship Healthcare Agent Relationship Communication Fanny Fernandez Other - (no specific identity) Health Care Agent (per Health Care Power of Network Developer document) Care Teams Neck Pinner Relationship Specialty Start Date End Date Abdon Pa DO [address] [place] [address] PCP - General Internal Medicine 01/24/24 documented as of this encounter
--- OUTSIDE RECORDS SUMMARY | 2024-11-07 07:15 | External Medical Summary | Summary of Care ---
Author Name Unknown Organization [facility] Address [address] [place] [address] Phone [phone] Care Team Providers Care Electronic Video Games Servicer Name Role Phone Abdon Pa DO Primary Care Provider [phone] Reason for Visit * Reason Comments Medication Refill Encounter Details Date Type Department Care Team (Late st Contact Info) Description 08/18/2024 Refill Cardiology, [facility] [address] [place] [address] Ganesh Colin PA-C [address] [facility], [place] [id number] Paroxysmal atrial fibrillation (HCC) Allergies Active Allergy Reactions Criticality Noted Date Comments Clopidogrel Edema face/lips/tongue High 06/03/2020 Other Reaction(s): SWELLING OF FACE/LIPS/TONGUE Oxycodone Edema Other High 12/05/2022 Percodan 11/23/2000 edema Ticagrelor Edema face/lips/tongue High 07/28/2020 Other Reaction(s): SWELLING OF FACE/LIPS/TONGUE documented as of this encounter (statuses as of 08/19/2024) Medications Aspirin 81 MG Oral Tablet ChewableIndicatio ns:Coronary artery disease involving pauma heart without angina pectoris, unspecified vessel or [...] GASIndications:He art failure, systolic, due to CAD ([facility]),SOB (shortness of breath),COPD, group B, by GOLD 2017 classification ([facility]),Chronic respiratory failure with hypoxia ([facility]) Portable unit thru [employer]. 2 LPM continuous. 1 Each 05/14/20 23 Active Additional Information Patient taking differently: Portable unit thru [employer].4 LPM continuous., Reported on 11/22/2023 Ventolin HFA 108 (90 Base) MCG/ACT Inhalation Aerosol SolutionIndicatio ns:Asthma with COPD (chronic obstructive pulmonary disease) ([facility]) Inhale 2 Puffs by mouth [...] s:Heart failure, systolic, due to CAD ([facility]) Take 1 Tablet by mouth [...] episode of recurrent major depressive disorder ([facility]) Take 1 Tablet by mouth at [...] mg per tab)Indications:C oronary artery disease involving pauma heart without angina pectoris, unspecified vessel or [...] A DAY 180 Tablet 08/19/19 25 Active Metoprolol Succinate ER 25 MG Oral Tablet Extended Release 24 Hour (toPROL XL)Indications:Pa roxysmal atrial fibrillation (HCC) TAKE ONE TABLET BY MOUTH TWICE A DAY 180 Tablet 4 7:41 AM EDT 05/22/20 24 2024 [facility](Ref ill) Hospital, Clinic, or Other Facility Administered Medication Ordered Dose Route Frequency Start Date End Date Status vitamin b-12 (Cyanocobalamin) inj 1,000 mcgIndications:Vitamin B 12 deficiency 1000 mcg IM [id number] 04/01/2024 03/03/2025 Active documented as of this [...] Inhaler Self-Management plan Other/Additional Comments: will contact [facility] Exacerbation plan Chest Xray Assessment & [...] MEDICATION USE AGREEMENT 05/10/2009 Overview (12/30/2010): Sees [facility] in [place] for her pain meds - under contract w/ them since 11/2010 - pls do not refill any pain meds through PCP office. Other chronic pain 05/10/2009 Overview (12/30/2010): Chronic CHILDRESS and joint pains since CVA Sees [facility] in [place] for her pain meds - under contract w/ them since 11/2010 - pls do not refill any pain meds through PCP office. OLD MYOCARDIAL INFARCT 03/04/2009 Overview (03/04/2009): Modified by [facility] [place] Protocol #5. 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 Study Titile: Genomics Markers for Patients with Cardiovascular Disease Project # [id number] PI: Magdalena Carbone MD Please call [phone] with study related questions CVA 05/02/2006 11/26/2008 Overview (11/26/2008): Modified per CVA protocol #8 ADVANCE DIRECTIVE INFORMATION 12/13/2004 06/16/2024 Overview (12/13/2004): Brochure given to pt. Acute [place] 03/04/2009 Overview (03/04/2009): Modified by [facility] [place] Protocol #5. PURE HYPERCHOLESTEROLEM 07/13 Overview (07/28/2009): Per Lipid Taxonomy. Need for prophylactic hormon e replacement therapy (postmenopausal) 07/28/2020 documented as of this encounter (statuses as of 08/19/2024) Immunizations Name Administration Dates Next Due COVID-19 mRNA, LNP-s, No Pre serve, 2-Dose Series ([employer]) 06/20/2021,10/06/2020,09/15/2020 COVID-19, LNP-s, No Preserve , Sadi-sucrose, Ages 12+ (Pfizer) 12/20/2021 COVID-19, MRNA-LNP, PF, 30 M CG/0.3 mL, 12 YRS AND ABOVE, IM ([employer]) 06/24/2024,06/14/2023 Covid-19, Mrna, Lnp-s, Pf, B ivalent, 30 Mcg, IM, 12 yrs and above ([employer]) 06/06/2022 Pneumococcal Conjugate Vacc, 13 Valent (Prevnar) [...] No 08/27/2023 Does the household have a [facility] source of income? (Household - for ages [...] encounter Miscellaneous Notes * Telephone Encounter - Adriana Clancy RPh - 08/19/2024 2:46 PM ESTSigned Prescriptions: Disp Refills Metoprolol Succinate ER 25 MG Oral Tablet *180 Ta*0 Sig: TAKE ONE TABLET BY MOUTH TWICE A DAY Authorizing Provider: GANESH COLIN Ordering User: ADRIANA CLANCY * Telephone Encounter - Adriana Clancy RPh - 08/19/2024 2:43 PM EST Cardio apt scheduled 10/13/24 Adriana Hector PharmD Clinical Pharmacist [facility] 08/19/2024, 2:45 PM documented in this encounter Plan of Treatment Upcoming Encounters Date Type Department Care Team (Late st Contact Info) Description 08/20/2024 9:20 AM EST Office Visit Family Practice [address] [place] [address] [address] [facility] [place] [address] Abdon Pa DO [address] [place] [address] 09/23/2024 10:00 AM EST Anticoagulation Family Practice [address] [facility] [address] [facility] [place] [address] College, Pharmacist [address] [place] [address], [place] [address] 10/13/2024 3:00 PM EST Office Visit Cardiology, [facility] [address] [address] Ganesh Colin PA-C [address] [address] Health Maintenance Due Date Last Done Comments DISCUSS TOBACCO CESSATION (REFER TO SMARTSET #9290) 1955 Fecal Occult Blood Test 1998 Sigmoidoscopy [...] D LEVEL ONCE IN A LIFETIME-USE SMARTSET# [id number] Completed 10/30/2023, 04/13/2022, 01/10/2022, Additional history exists [...] COPD, group B, by GOLD 2017 classification ([facility]) Age-related osteoporosis without current pathological fracture Senile osteoporosis Cerebrovascular disease, arteriosclerotic, post-stroke Cerebral atherosclerosis Chronic systolic heart failure (HCC) Chronic systolic heart failure Coronary artery disease involving pauma coronary artery of pauma heart without angina pectoris Old myocardial infarct Old myocardial infarction Paroxysmal atrial fibrillation (HCC) Atrial fibrillation Dyslipidemia, goal LDL below 70 Other and unspecified hyperlipidemia Gastroesophageal reflux disease without esophagitis Esophageal reflux Adjustment disorder with mixed anxiety and depressed mood 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 of 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 S/P angioplasty with stent Postsurgical percutaneous transluminal coronary angioplasty status S/P aortic valve replacement Heart valve replaced by other means 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 Speech and language deficit, unspecified, late effect of cerebrovascular disease COPD, group B, by GOLD 2017 classification ([facility])- Primary Heart failure, systolic, due to CAD ([facility]) Unspecified systolic heart failure Paroxysmal atrial fibrillation (HCC) Atrial fibrillation Cerebrovascular disease, arteriosclerotic, post-stroke Cerebral atherosclerosis Advanced care planning/counseling discussion Other specified counseling Paroxysmal atrial fibrillation (HCC) Atrial fibrillation documented in this encounter Advance Directives Documents on File Type Date Recorded Patient Electrical 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 Expl anation Advance Directives and Living Will 06/17/2021 ADVANCE DIRECTIVE / LIVING WILL Power of Peer Financial Counselor 06/17/2021 POWER OF A TTORNEY * Full Code (Latest Code Status on File) Date Activated Date Inactivated Comments 09/21/2008 9:29 AM 09/22/2008 3:05 PM Healthcare Agents on File Name Relationship Healthcare Agent Relationship Communication Fanny Fernandez Other - (no specific identity) Health Care Agent (per Health Care Power of Peer Financial Counselor document) Care Teams Electronic Video Games Servicer Relationship Specialty Start Date End Date Abdon Pa DO [address] [place] [address] PCP - General Internal Medicine 01/24/24 documented as of this encounter
--- OUTSIDE RECORDS SUMMARY | 2024-11-07 07:15 | External Medical Summary ---
Author Name Unknown Address Unknown Organization : Laboratory Report Ordering Provider Test Date Status ROGELIO VALVERDE 07/18/2024 13:07:23 Final Therapeutic ranges for non-o perative patients:
Prophylaxsis/treatment of DVT: (Range:2.0-3.0)
Treatment of pulmonary embolism:(Range:2.0-3.0)
Prevention of systemic embolism from:
-tissue heart valves
-acute myocardial infarction
-valvular heart disease
-atrial fibrillation
(Range: 2.0-3.0)
Mechanical prosthetic valves: (Range: 2.5-3.5) Observation Date Value Abnormality Reference (Units ) Status INR in Capillary blood by Coagulation assay 07/18/2024 13:07:23 2.5 (INR) Final Performing Location
--- OUTSIDE RECORDS SUMMARY | 2024-11-07 07:16 | External Medical Summary | Summary of Care ---
Author Name Unknown Organization [facility] Address [address] [place] [address] Phone [phone] Care Team Providers Care Heavy Equipment Mechanic Name Role Phone Abdon Pa DO Primary Care Provider [phone] Reason for Visit * Reason Comments Dosage Adjustment In Person (Anticoag Cl inic) Encounter Details Date Type Department Care Team (Late st Contact Info) Description 06/24/2024 1:00 PM EST Anticoagulation Family Practice 65 [facility] [address] [place] [address] College, Pharmacist [address] [address] Anticoagulation management encounter*; Cerebrovascular disease, arteriosclerotic, post-stroke; [facility] current use of 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 Allergies Active Allergy Reactions Criticality Noted Date Comments Clopidogrel Edema face/lips/tongue High 06/03/2020 Other Reaction(s): SWELLING OF FACE/LIPS/TONGUE Oxycodone Edema Other High 12/05/2022 Percodan 11/23/2000 edema Ticagrelor Edema face/lips/tongue High 07/28/2020 Other Reaction(s): SWELLING OF FACE/LIPS/TONGUE documented as of this encounter (statuses as of 06/24/2024) Medications Aspirin 81 MG Oral Tablet ChewableIndicatio ns:Coronary artery disease involving [place] heart without angina pectoris, unspecified vessel or [...] GASIndications:He art failure, systolic, due to CAD ([facility]),SOB (shortness of breath),COPD, group B, by GOLD 2017 classification ([facility]),Chronic respiratory failure with hypoxia ([facility]) Portable unit thru [email or web address] [facility]. 2 LPM continuous. 1 Each 05/14/20 23 Active Additional Information Patient taking differently: Portable unit thru [employer].4 LPM continuous., Reported on 11/22/2023 Ventolin HFA 108 (90 Base) MCG/ACT Inhalation Aerosol SolutionIndicatio ns:Asthma with COPD (chronic obstructive pulmonary disease) ([facility]) Inhale 2 Puffs by mouth [...] (Lasix)Indication s:Heart failure, systolic, due to CAD ([facility]) Take 1 Tablet by mouth once a day on Sunday, Sunday, and Sunday only. 30 Tablet 5 11/02/19 24 Active hydrOXYzine HCl 25 MG Oral Tablet Take 1 Tablet by mouth 3 times a day as needed for Itching. 180 Tablet 2 4 10:20 AM EDT 02/11/20 24 Active Mirtazapine 45 MG Oral [...] MOUTH EVERY DAY 90 Tablet 2 4 2:39 PM EDT 03/27/20 24 025 Active Famotidine 20 MG Oral Tablet (Pepcid)Indicatio ns:Gastroesophage al reflux disease without esophagitis TAKE ONE TABLET BY MOUTH EVERY MORNING 100 Tablet 3 4 12:30 PM EDT 04/02/20 24 025 Active Desvenlafaxine Succinate ER 100 MG Oral Tablet Extended Release 24 Hour (Pristiq)Indicati ons:Moderate episode of recurrent major depressive disorder (HCC) Take 1 Tablet by mouth in the morning. 90 Tablet 1 4 11:55 AM EDT 04/28/20 24 Active Ondansetron HCl 4 MG Oral Tablet (Zofran)Indicatio ns:Nausea TAKE ONE TABLET BY MOUTH EVERY 8 HOURS NEEDED FOR NAUSEA 30 Tablet 4 8:43 AM EDT 05/03/20 24 Active Pantoprazole Sodium 40 MG Oral [...] DOSES 25 Tablet 1 05/28/20 24 Active HYDROcodone-Aceta minophen 7.5-325 MG Oral TabletIndications :Lumbar degenerative disc disease Take 1 Tablet by mouth every 8 hours as needed for Pain, Severe. 90 Tablet 06/12/20 24 Active Warfarin Sodium 2.5 MG Oral Tablet (Coumadin)Indicat ions:History of artificial heart valve Take 1 Tablet by mouth every evening. OR DIRECTED BY ANTICOAGULATION PHARMACIST 100 Tablet 1 4 5:05 PM EDT 06/13/20 24 Active Entresto 97-103 MG Oral Tablet (sacubitril-valsa rtan 97-103 mg per tab)Indications:C oronary artery disease involving [place] heart without angina pectoris, unspecified vessel or lesion type Take 1 Tablet by mouth in the morning and 1 Tablet before bedtime. 180 Tablet 3 06/23/20 24 Active Hospital, Clinic, or Other Facility Administered Medication Ordered Dose Route Frequency Start Date End Date Status vitamin b-12 (Cyanocobalamin) inj 1,000 mcgIndications:Vitamin B 12 deficiency 1000 mcg IM [id number] 04/01/2024 03/03/2025 Active documented as of this encounter (statuses as of 06/24/2024) Active Problems Problem Noted Date Diagnosed Date [...] MEDICATION USE AGREEMENT 05/10/2009 Overview (12/30/2010): Sees [facility] in [place] for her pain meds - under contract w/ them since 11/2010 - pls do not refill any pain meds through PCP office. Other chronic pain 05/10/2009 Overview (12/30/2010): Chronic CHILDRESS and joint pains since CVA Sees [facility] in [place] for her pain meds - under contract w/ them since 11/2010 - pls do not refill any pain meds through PCP office. OLD MYOCARDIAL INFARCT 03/04/2009 Overview (03/04/2009): Modified by [facility] Protocol #5. 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 Study Titile: Genomics Markers for Patients with Cardiovascular Disease Project # PI: Magdalena Carbone MD Please call [phone] with study related questions CVA 05/02/2006 11/26/2008 Overview (11/26/2008): Modified per CVA protocol #8 ADVANCE DIRECTIVE INFORMATION 12/13/2004 06/16/2024 Overview (12/13/2004): Brochure given to pt. Acute RI 03/04/2009 Overview (03/04/2009): Modified by [facility] Protocol #5. PURE HYPERCHOLESTEROLEM 07/13 Overview (07/28/2009): Per Lipid Taxonomy. Need for prophylactic hormon e replacement therapy (postmenopausal) 07/28/2020 documented as of this encounter (statuses as of 06/24/2024) Immunizations Name Administration Dates Next Due COVID-19 mRNA, LNP-s, No Pre serve, 2-Dose Series (GigaLogix) 06/20/2021,10/06/2020,09/15/2020 COVID-19, LNP-s, No Preserve , Sadi-sucrose, Ages 12+ (Pfizer) 12/20/2021 COVID-19, MRNA-LNP, PF, 30 M CG/0.3 mL, 12 YRS AND ABOVE, IM (Tandem-Comirnat) 06/24/2024,06/14/2023 Covid-19, Mrna, Lnp-s, Pf, B ivalent, 30 Mcg, IM, 12 yrs and above (Pfizer) 06/06/2022 Pneumococcal Conjugate Vacc, 13 Valent (Prevnar) 05/10/2020,04/22/2019 Pneumococcal Polysaccharide PPV23 (Pneumovax) 10/19/2021,11/14/2010,11/27/2005 Season Influenza, Quad, PF, Adjuvanted, 65+ Yrs, [...] 08/27/2023 Does the household have a [facility] source of income? (Household - for [...] this encounter Progress Notes * Jami Hope, [facility] - 06/24/2024 1:07 PM EST Medication Therapy Disease Management - Anticoagulation Patient: Malia Nice | : 1955 Subjective Patient-Reported Symptoms: Patient Findings Negatives: Signs/symptoms of thrombosis, Signs/symptoms of bleeding, Change in health, Change in alcohol use, Change in activity, Upcoming invasive procedure, Missed doses, Extra doses, Change in medications, Change in diet/appetite, Bruising Objective Current Warfarin Dose As of 06/24/2024 Warfarin maintenance plan: 2.5 mg (2.5 mg x 1) every day INR Result As of 06/24/2024 INR goal: 2.0-3.0 INR used for dosin.0 (06/24/2024) Assessment & Plan Warfarin Plan As of 06/24/2024 Full warfarin instructions: 2.5 mg every day No change documented: Jami Hope [facility] Next INR check: 07/18/2024 Repeat PT/INR in 4 week(s) Weekly dose: not changed Additional Dosing Information: I spent a total of 10-19 minutes (exact time 12 mins) on the date of service in preparation, delivery, and documentation of the care provided to Malia Nice excluding any time spent in the performance of separately billed services or time spent by another provider/QHP. Jami Cedillo [facility] Clinical Pharmacist 06/24/2024, 1:12 PM documented in this encounter Plan of Treatment Upcoming Encounters Date Type Department Care Team (Late st Contact Info) Description 07/18/2024 1:00 PM EST Anticoagulation Family Practice [address] [place] [id number] College, Pharmacist [address] [place] [address] 08/18/2024 11:10 AM EST Anticoagulation Family Practice [address] [place] [address] College, Pharmacist [address] [place] [address] 08/18/2024 11:20 AM EST Office Visit Family Practice 65 [facility] [address] [place] [address] Abdon Pa, [address] [place] [address] 10/13/2024 3:00 PM EST Office Visit Cardiology, [facility] [address] [address] Elton Lee PA-C [address] [address] Health Maintenance Due Date Last Done Comments DISCUSS TOBACCO CESSATION (REFER TO SMARTSET #4805) 1955 Fecal Occult Blood Test 1998 Sigmoidoscopy [...] D LEVEL ONCE IN A LIFETIME-USE SMARTSET# 65501 Completed 10/30/2023, 04/13/2022, 01/10/2022, Additional history exists [...] Comments INR FINGERSTICK, POINT OF CARE STAT 06/24/2024 1:08 PM EST Cerebrovascular disease, arteriosclerotic, post-stroke Anticoagulation management encounter 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 documented in this encounter Results * INR FINGERSTICK, POINT OF CARE (06/24/2024 1:08 PM EST) Fingerstick INR 2.0 INR 3:28 PM EST [facility] 56-21 Blood 06/24/2024 1:08 PM EST 06/24/2024 3:28 PM EST Narrative [facility] 56-21 - 06/24/2024 3:28 PM EST Therapeutic ranges for non-operative patients: Prophylaxsis/treatment of DVT: (Range:2.0-3.0) Treatment of pulmonary embolism:(Range:2.0-3.0) Prevention of systemic embolism from: -tissue heart valves -acute myocardial infarction -valvular heart disease -atrial fibrillation (Range: 2.0-3.0) Mechanical prosthetic valves: (Range: 2.5-3.5) us Jami Roche [facility] LAB PO INT OF CARE TEST DOCKED DEVICE UNSOLICITED RESULTS Final Result [facility] 56-[address] [place] [address], [facility] documented in this encounter Visit Diagnoses Diagnosis Advanced care planning/counseling discussion- Primary Other specified counseling COPD, group B, by GOLD 2017 classification ([facility]) Age-related osteoporosis without current pathological fracture Senile osteoporosis Cerebrovascular disease, arteriosclerotic, post-stroke Cerebral atherosclerosis Chronic systolic heart failure (HCC) Chronic systolic heart failure Coronary artery disease involving [place] coronary artery of [place] heart without angina pectoris Old myocardial infarct Old myocardial infarction Paroxysmal atrial fibrillation (HCC) Atrial fibrillation Dyslipidemia, goal LDL below 70 Other and unspecified hyperlipidemia Gastroesophageal reflux disease without esophagitis Esophageal reflux Adjustment disorder with mixed anxiety and depressed mood 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 S/P angioplasty with stent Postsurgical percutaneous transluminal coronary angioplasty status S/P aortic valve replacement Heart valve replaced by other means 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 Speech and language deficit, unspecified, late effect of cerebrovascular disease COPD, group B, by GOLD 2017 classification ([facility])- Primary Heart failure, systolic, due to CAD ([facility]) Unspecified systolic heart failure Paroxysmal atrial fibrillation (HCC) Atrial fibrillation Cerebrovascular disease, arteriosclerotic, post-stroke Cerebral atherosclerosis Advanced care planning/counseling discussion Other specified counseling Anticoagulation management encounter- Primary Encounter for therapeutic drug monitoring Cerebrovascular disease, arteriosclerotic, post-stroke Cerebral atherosclerosis [facility] current use of 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 documented in this encounter Advance Directives Documents on File Type Date Recorded Patient Compo Caster Expl anation Advance Directives and Living Will 06/17/2021 ADVANCE DIRECTIVE / LIVING WILL Power of Water Trainer 06/17/2021 POWER OF A TTORNEY * Full Code (Latest Code Status on File) Date Activated Date Inactivated Comments 09/21/2008 9:29 AM 09/22/2008 3:05 PM Healthcare Agents on File Name Relationship Healthcare Agent Relationship Communication Fanny Fernandez Other - (no specific identity) Health Care Agent (per Health Care Power of Water Trainer document) Care Teams Heavy Equipment Mechanic Relationship Specialty Start Date End Date Abdon Pa DO [address] [place] [address] PCP - General Internal Medicine 01/24/24 documented as of this encounter
--- OUTSIDE RECORDS SUMMARY | 2024-11-07 07:16 | External Medical Summary | Summary of Care ---
Author Name Unknown Organization [facility] Address [address] [place] [address] Phone [phone] Care Team Providers Care Hot Tar Roofer Helper Name Role Phone Kayce Pa DO Primary Care Provider [phone] Reason for Visit * Reason Onset Date Comments Medication Refill 07/10/2024 Encounter Details Date Type Department Care Team (Late st Contact Info) Description 07/10/2024 Refill Family Practice [address], [place] [address] [place] [phone] Kayce Pa DO [address] [place], [place] [phone] Lumbar degenerative disc disease Allergies Active Allergy Reactions Criticality Noted Date Comments Clopidogrel Edema face/lips/tongue High 06/03/2020 Other Reaction(s): SWELLING OF FACE/LIPS/TONGUE Oxycodone Edema Other High 12/05/2022 Percodan 11/23/2000 edema Ticagrelor Edema face/lips/tongue High 07/28/2020 Other Reaction(s): SWELLING OF FACE/LIPS/TONGUE documented as of this encounter (statuses as of 07/11/2024) Medications Aspirin 81 MG Oral Tablet ChewableIndicatio ns:Coronary artery disease involving [place] heart without angina pectoris, unspecified vessel or [...] art failure, systolic, due to CAD ([facility]),SOB (shortness of breath),COPD, group B, by GOLD 2017 classification ([facility]),Chronic respiratory failure with hypoxia ([facility]) Portable unit thru [employer]. 2 LPM continuous. 1 Each 05/14/20 23 Active Additional Information Patient taking differently: Portable unit thru [employer].4 LPM continuous., Reported on 11/22/2023 Ventolin HFA 108 (90 Base) MCG/ACT Inhalation Aerosol SolutionIndicatio ns:Asthma with COPD (chronic obstructive pulmonary disease) ([facility]) Inhale 2 Puffs by [...] s:Heart failure, systolic, due to CAD ([facility]) Take 1 Tablet by [...] episode of recurrent major depressive disorder ([facility]) Take 1 Tablet by [...] 3 4 12:30 PM EDT 04/02/20 24 2024 Active Desvenlafaxine Succinate [...] mg per tab)Indications:C oronary artery disease involving [place] heart without angina pectoris, unspecified vessel or [...] Pain, Severe. 90 Tablet 07/11/20 24 Active HYDROcodone-Aceta minophen 7.5-325 MG Oral TabletIndications :Lumbar degenerative disc disease Take 1 Tablet by mouth every 8 hours as needed for Pain, Severe. 90 Tablet 06/12/20 24 2023 Disconti nued(Ref ill) Hospital, Clinic, or Other Facility Administered Medication Ordered Dose Route Frequency Start Date End Date Status vitamin b-12 (Cyanocobalamin) inj 1,000 mcgIndications:Vitamin B 12 deficiency 1000 mcg IM [id number] 04/01/2024 03/03/2025 Active documented as of this encounter (statuses as of 07/11/2024) Active Problems Problem Noted Date Diagnosed Date [...] Inhaler Self-Management plan Other/Additional Comments: will contact [facility] Exacerbation plan Chest Xray Assessment & [...] MEDICATION USE AGREEMENT 05/10/2009 Overview (12/30/2010): Sees [facility] in [place] for her pain meds - under contract w/ them since 11/2010 - pls do not refill any pain meds through PCP office. Other chronic pain 05/10/2009 Overview (12/30/2010): Chronic CHILDRESS and joint pains since CVA Sees [facility] in [place] for her pain meds - under contract w/ them since 11/2010 - pls do not refill any pain meds through PCP office. OLD MYOCARDIAL INFARCT 03/04/2009 Overview (03/04/2009): Modified by Acute [place] Protocol #5. 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 Study Titile: Genomics Markers for Patients with Cardiovascular Disease Project # [id number] PI: Magdalena Carbone MD Please call [phone] with study related questions CVA 05/02/2006 11/26/2008 Overview (11/26/2008): Modified per CVA protocol #8 ADVANCE DIRECTIVE INFORMATION 12/13/2004 06/16/2024 Overview (12/13/2004): Brochure given to pt. Acute [place] 03/04/2009 Overview (03/04/2009): Modified by Acute [place] Protocol #5. PURE HYPERCHOLESTEROLEM 07/13 Overview (07/28/2009): Per Lipid Taxonomy. Need for prophylactic hormon e replacement therapy (postmenopausal) 07/28/2020 documented as of this encounter (statuses as of 07/11/2024) Immunizations Name Administration Dates Next Due COVID-19 mRNA, LNP-s, No Pre serve, 2-Dose Series ([employer]) 06/20/2021,10/06/2020,09/15/2020 COVID-19, LNP-s, No Preserve , Sadi-sucrose, Ages 12+ (Pfizer) 12/20/2021 COVID-19, MRNA-LNP, PF, 30 M CG/0.3 mL, 12 YRS AND ABOVE, IM ([employer]-Comirnaty) 06/24/2024,06/14/2023 Covid-19, Mrna, Lnp-s, Pf, B ivalent, 30 Mcg, IM, 12 yrs and above ([employer]) 06/06/2022 Pneumococcal Conjugate Vacc, 13 Valent (Prevnar) [...] Telephone Encounter - Kayce Pa DO - 07/11/2024 10:09 AM ESTSigned Prescriptions: Disp Refills HYDROcodone-Acetaminophen 7.5-325 MG Oral *90 Tab*0 Sig: Take 1 Tablet by mouth every 8 hours as needed for Pain, Severe.Authorizing Provider: KAYCE PA------- * Telephone Encounter - Kayce Pa, - 07/11/2024 10:09 AM ESTSigned Prescriptions: Disp Refills HYDROcodone-Acetaminophen 7.5-325 MG Oral *90 Tab*0 Sig: Take 1 Tablet by mouth every 8 hours as needed for Pain, Severe.Authorizing Provider: KAYCE PA------- * Telephone Encounter - Kayce Pa DO - 07/11/2024 10:08 AM EST I have reviewed the patients controlled substance dispensing history in the Prescription Drug Monitoring Program in compliance with the [facility] regulations before prescribing a controlled substance. [...] found in Results Review. Medication is due 07/11/2024 * Telephone Encounter - Ghislaine Alarcon [facility] - 07/11/2024 9:55 AM ESTPending Prescriptions: Disp Refills HYDROcodone-Acetaminophen 7.5-325 MG Oral *90 Tab*0 Sig: Take 1 Tablet by mouth every 8 hours as needed for Pain, Severe. * Telephone Encounter - Nell Hensley [facility] - 07/11/2024 9:50 AM EST Images from the original note were not included. I have reviewed the patients controlled substance dispensing history in the Prescription Drug Monitoring Program in compliance with the [facility] regulations before prescribing a controlled substance. PDMP checked on 07/11/2024. Pending Prescriptions: Disp Refills HYDROcodone-Acetaminophen 7.5-325 MG Oral*90 Tab*0 Sig: Take 1 Tablet by mouth every 8 hours as needed for Pain, Severe. Last Visit: 04/30/2024 (in office), Visit date not found (telemedicine) Next Visit: 07/18/2024 Date medication was last filled: 06/12/2024 Date medication is due for refill: 07/11/2024 Pharmacy: [id number] PDMP Is this request for a controlled substance? [...] in Results Review. Please approve if appropriate. Nell Hensley PharmD, [facility] PGY1 [facility] [place] 07/11/2024 9:50 AM documented in this encounter Plan of Treatment Upcoming Encounters Date Type Department Care Team (Late st Contact Info) Description 07/18/2024 1:00 PM EST Anticoagulation Family Practice [address] [place] [phone] College, Pharmacist [address] [place] [address] 08/18/2024 11:10 AM EST Anticoagulation Family Practice 65 [facility] 293 [place] [address] College, Pharmacist [address] [place] [address] 08/18/2024 11:20 AM EST Office Visit Family Practice [address] [place] [address] Kayce Pa, [address] [address] 10/13/2024 3:00 PM EST Office Visit Cardiology, [facility] [address] [place] [address] Elton Lee PA-C [address] [place] [address] Health Maintenance Due Date Last Done Comments DISCUSS TOBACCO CESSATION (REFER TO SMARTSET #3038) 1955 Fecal Occult Blood Test 1998 Sigmoidoscopy [...] D LEVEL ONCE IN A LIFETIME-USE SMARTSET# [id number] Completed 10/30/2023, 04/13/2022, 01/10/2022, Additional history exists [...] group B, by GOLD 2017 classification ([facility]) Age-related osteoporosis without current pathological fracture Senile osteoporosis Cerebrovascular disease, arteriosclerotic, post-stroke Cerebral atherosclerosis Chronic systolic heart failure (HCC) Chronic systolic heart failure Coronary artery disease involving [place] coronary artery of [place] heart without angina pectoris Old myocardial infarct Old myocardial infarction Paroxysmal atrial fibrillation (HCC) Atrial fibrillation Dyslipidemia, goal LDL below 70 Other and unspecified hyperlipidemia Gastroesophageal reflux disease without esophagitis Esophageal reflux Adjustment disorder with mixed anxiety and depressed mood 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 S/P angioplasty with stent Postsurgical percutaneous transluminal coronary angioplasty status S/P aortic valve replacement Heart valve replaced by other means 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 Speech and language deficit, unspecified, late effect of cerebrovascular disease COPD, group B, by GOLD 2017 classification ([facility])- Primary Heart failure, systolic, due to CAD (HCC) Unspecified systolic heart failure Paroxysmal atrial fibrillation (HCC) Atrial fibrillation Cerebrovascular disease, arteriosclerotic, post-stroke Cerebral atherosclerosis Advanced care planning/counseling discussion Other specified counseling Lumbar degenerative disc disease Degeneration of lumbar or lumbosacral intervertebral disc documented in this encounter Advance Directives Documents on File Type Date Recorded Patient Blueprint Blocker Expl anation Advance Directives and Living Will 06/17/2021 ADVANCE DIRECTIVE / LIVING WILL Power of Device Engineer 06/17/2021 POWER OF A TTORNEY * Full Code (Latest Code Status on File) Date Activated Date Inactivated Comments 09/21/2008 9:29 AM 09/22/2008 3:05 PM Healthcare Agents on File Name Relationship Healthcare Agent Relationship Communication Fanny Fernandez Other - (no specific identity) Health Care Agent (per Health Care Power of Device Engineer document) Care Teams Hot Tar Roofer Helper Relationship Specialty Start Date End Date Kayce Pa DO [address] [place] [address] PCP - General Internal Medicine 01/24/24 documented as of this encounter
--- OUTSIDE RECORDS SUMMARY | 2024-11-07 07:16 | External Medical Summary | Summary of Care ---
Author Name Unknown Organization [facility] Address [address] [place] [address] Phone [phone] Care Team Providers Care Finish Sander Name Role Phone Kayce Pa DO Primary Care Provider [phone] Reason for Visit * Reason Comments Medication Refill Encounter Details Date Type Department Care Team (Late st Contact Info) Description 06/28/2024 Refill Family Practice [address], [place] [address] [place] [phone] Kayce Pa DO [address] [place] [address] Nausea Allergies Active Allergy Reactions Criticality Noted Date Comments Clopidogrel Edema face/lips/tongue High 06/03/2020 Other Reaction(s): SWELLING OF FACE/LIPS/TONGUE Oxycodone Edema Other High 12/05/2022 Percodan 11/23/2000 edema Ticagrelor Edema face/lips/tongue High 07/28/2020 Other Reaction(s): SWELLING OF FACE/LIPS/TONGUE documented as of this encounter (statuses as of 06/30/2024) Medications Aspirin 81 MG Oral Tablet ChewableIndicatio [...] GASIndications:He art failure, systolic, due to CAD ([facility]),SOB (shortness of breath),COPD, group B, by GOLD 2017 classification ([facility]),Chronic respiratory failure with hypoxia ([facility]) Portable unit thru [employer]. 2 LPM continuous. 1 Each 05/14/20 23 Active Additional Information Patient taking differently: Portable unit thru [employer].4 LPM continuous., Reported on 11/22/2023 Ventolin HFA 108 (90 Base) MCG/ACT Inhalation Aerosol SolutionIndicatio ns:Asthma with COPD (chronic obstructive pulmonary disease) ([facility]) Inhale 2 Puffs by mouth every [...] (Lasix)Indication s:Heart failure, systolic, due to CAD ([facility]) Take 1 Tablet by mouth once [...] state,Moderate episode of recurrent major depressive disorder ([facility]) Take 1 Tablet by mouth at [...] 8 HOURS NEEDED FOR NAUSEA 30 Tablet 06/30/20 24 Active Ondansetron HCl 4 MG Oral Tablet (Zofran)Indicatio ns:Nausea TAKE ONE TABLET BY MOUTH EVERY 8 HOURS NEEDED FOR NAUSEA 30 Tablet 4 8:43 AM EDT 05/03/20 24 2023 Disconti nued(Ref ill) Hospital, Clinic, or Other Facility Administered Medication Ordered Dose Route Frequency Start Date End Date Status vitamin b-12 (Cyanocobalamin) inj 1,000 mcgIndications:Vitamin B 12 deficiency 1000 mcg IM [id number] 04/01/2024 03/03/2025 Active documented as of this encounter (statuses as of 06/30/2024) Active Problems Problem Noted Date Diagnosed Date [...] Inhaler Self-Management plan Other/Additional Comments: will contact [facility] Exacerbation plan Chest Xray Assessment & [...] MEDICATION USE AGREEMENT 05/10/2009 Overview (12/30/2010): Sees [facility] in [place] for her pain meds - under contract w/ them since 11/2010 - pls do not refill any pain meds through PCP office. Other chronic pain 05/10/2009 Overview (12/30/2010): Chronic CHILDRESS and joint pains since CVA Sees [facility] in [place] for her pain meds - under contract w/ them since 11/2010 - pls do not refill any pain meds through PCP office. OLD MYOCARDIAL INFARCT 03/04/2009 Overview (03/04/2009): Modified by Acute [place] Protocol #5. 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 Study Titile: Genomics Markers for Patients with Cardiovascular Disease Project # [id number] PI: Magdalena Carbone MD Please call [phone] with study related questions CVA 05/02/2006 11/26/2008 Overview (11/26/2008): Modified per CVA protocol #8 ADVANCE DIRECTIVE INFORMATION 12/13/2004 06/16/2024 Overview (12/13/2004): Brochure given to pt. Acute [place] 03/04/2009 Overview (03/04/2009): Modified by Acute [place] Protocol #5. PURE HYPERCHOLESTEROLEM 07/13 Overview (07/28/2009): Per Lipid Taxonomy. Need for prophylactic hormon e replacement therapy (postmenopausal) 07/28/2020 documented as of this encounter (statuses as of 06/30/2024) Immunizations Name Administration Dates Next Due COVID-19 mRNA, LNP-s, No Pre serve, 2-Dose Series ([employer]) 06/20/2021,10/06/2020,09/15/2020 COVID-19, LNP-s, No Preserve , Sdai-sucrose, Ages 12+ (Pfizer) 12/20/2021 COVID-19, MRNA-LNP, PF, 30 M CG/0.3 mL, 12 YRS AND ABOVE, IM ([facility]) 06/24/2024,06/14/2023 Covid-19, Mrna, Lnp-s, Pf, B ivalent, 30 Mcg, IM, 12 yrs and above ([employer]) 06/06/2022 Pneumococcal Conjugate Vacc, 13 Valent (Prevnar) [...] No 08/27/2023 Does the household have a [facility] source of income? (Household - for [...] Telephone Encounter - Kayce Pa DO - 06/30/2024 5:06 PM ESTSigned Prescriptions: Disp Refills Ondansetron HCl 4 MG Oral Tablet (Zofran) 30 Tab*0 Sig: TAKE ONE TABLET BY MOUTH EVERY 8 HOURS NEEDED FOR NAUSEA Authorizing Provider: KAYCE PA * Telephone Encounter - Jesus Anderson [facility] - 06/30/2024 3:58 PM EST Pending Prescriptions: Disp Refills Ondansetron HCl 4 MG Oral Tablet (Zofran) 30 Tab*0 Sig: TAKE ONE TABLET BY MOUTH EVERY 8 HOURS NEEDED FOR NAUSEA * Telephone Encounter - Jesus Anderson [facility] - 06/30/2024 3:57 PM EST Forwarding to provider for further evaluation. Please approve and authorize additional refills if you would like patient to continue this medication. Thank You, Jesus Anderson, Pharm-D Clinical Pharmacist [facility] ([facility]) [phone] 06/30/2024, 3:58 PM * Telephone Encounter - Sole Mercedes PHARM Tech - 06/30/2024 3:07 PM EST Did you pend patient's preferred pharmacy and medication before forwarding?yes Pharmacy: [facility] Pending Prescriptions: Disp Refills Ondansetron HCl 4 MG Oral Tablet (Zofran) 30 Tab*0 Sig: TAKE ONE TABLET BY MOUTH EVERY 8 HOURS NEEDED FOR NAUSEA Last Visit: 04/30/2024 (in office), Visit date not found (telemedicine) Next Visit: 07/18/2024 If no future appointments scheduled, and last appointment is greater than a year ago, please schedule patient for a follow-up appointment Last date the medication was ordered: 05/03/24 Is this request for a controlled substance?No Urine Drug Screen: Results for orders placed or performed in [...] results can be found in Results Review. Patient Phone Numbers mobile [phone] Labs: Lab Results Component Value Date/Time CREAT 1.1 (H) 10/30/2023 10:06 AM CREAT 0.77 12/26/2021 12:00 AM CREAT 1.0 08/16/2020 11:34 AM POTASSIUM 4.5 10/30/2023 10:06 AM POTASSIUM 3.7 12/26/2021 12:00 AM POTASSIUM 4.4 08/16/2020 11:34 AM TSH 1.04 08/16/2020 11:34 AM LDL 62 10/30/2023 10:06 AM LDL 71 09/19/2022 02:58 PM LDL 66 08/16/2020 11:34 AM LDL NOT APPLICABLE 08/16/2020 11:34 AM ALT 21 10/30/2023 10:06 AM ALT 11 08/16/2020 11:34 AM HGBA1C 6.2 09/18/2011 01:06 PM documented in this encounter Plan of Treatment Upcoming Encounters Date Type Department Care Team (Late st Contact Info) Description 07/18/2024 1:00 PM EST Anticoagulation Family Practice 65 [facility] 293 [place] [phone] College, Pharmacist [address] [place] [address] 08/18/2024 11:10 AM EST Anticoagulation Family Practice 65 [facility] 293 [facility] [phone] College, Pharmacist [address] [place] [address] 08/18/2024 11:20 AM EST Office Visit Family Practice 65 [facility] [address] [facility], [place] [phone] Kayce Pa, 293 [facility], [place] [address] 10/13/2024 3:00 PM EST Office Visit Cardiology, [facility] 132 [facility] [place] [address] Elton Lee PA-C 132 [facility] [place] [address] Health Maintenance Due Date Last Done Comments [...] D LEVEL ONCE IN A LIFETIME-USE SMARTSET# [id number] Completed 10/30/2023, 04/13/2022, 01/10/2022, Additional history exists [...] COPD, group B, by GOLD 2017 classification ([facility])- Primary Heart failure, systolic, due to CAD ([facility]) Unspecified systolic heart failure Paroxysmal atrial fibrillation (HCC) Atrial fibrillation Cerebrovascular disease, arteriosclerotic, post-stroke Cerebral atherosclerosis Advanced care planning/counseling discussion Other specified counseling Nausea Nausea alone documented in this encounter Advance Directives Documents on File Type Date Recorded 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 Advance Directives and Living Will 06/17/2021 ADVANCE DIRECTIVE / LIVING WILL Power of Online Advertising Analyst 06/17/2021 POWER OF A TTORNEY * Full Code (Latest Code Status on File) Date Activated Date Inactivated Comments 09/21/2008 9:29 AM 09/22/2008 3:05 PM Healthcare Agents on File Name Relationship Healthcare Agent Relationship Communication Fanny Fernandez Other - (no specific identity) Health Care Agent (per Health Care Power of Online Advertising Analyst document) Care Teams Finish Sander Relationship Specialty Start Date End Date Kayce Pa DO [address] [place] [address] PCP - General Internal Medicine 01/24/24 documented as of this encounter
--- OUTSIDE RECORDS SUMMARY | 2024-11-07 07:16 | External Medical Summary | Summary of Care ---
Author Name Unknown Organization [facility] Address [address] [place] [address] Phone [phone] Care Team Providers Care Frame Wirer Name Role Phone Abdon Pa DO Primary Care Provider [phone] Encounter Details Date Type Department Care Team (Late st Contact Info) Description 06/19/2024 Population Health External Data Unspecified Department Allergies Active Allergy Reactions Criticality Noted Date Comments Clopidogrel Edema face/lips/tongue High 06/03/2020 Other Reaction(s): SWELLING OF FACE/LIPS/TONGUE Oxycodone Edema Other High 12/05/2022 Percodan 11/23/2000 edema Ticagrelor Edema face/lips/tongue High 07/28/2020 Other Reaction(s): SWELLING OF FACE/LIPS/TONGUE documented as of this encounter (statuses as of 06/26/2024) Medications Aspirin 81 MG Oral Tablet ChewableIndicatio ns:Coronary artery disease involving creek heart without angina pectoris, unspecified vessel or [...] breath),COPD, group B, by GOLD 2017 classification ([facility]),Chronic respiratory failure with hypoxia ([facility]) Portable unit thru [employer]. 2 LPM continuous. 1 Each 05/14/20 Active Additional Information Patient taking differently: Portable unit thru [employer].4 LPM continuous., Reported on 11/22/2023 Ventolin HFA 108 (90 Base) MCG/ACT Inhalation Aerosol SolutionIndicatio ns:Asthma with COPD (chronic obstructive pulmonary disease) ([facility]) Inhale 2 Puffs by mouth every 4 hours as needed for Cough, Wheezing or Shortness of Breath. 54 g 3 3 4:06 PM EDT 05/15/20 23 Active Acetaminophen 325 MG Oral Tablet (Tylenol)Indicati ons:Chronic midline low back pain without sciatica Take 2 Tablets by mouth every 8 hours as needed for Pain, Severe or Pain, Moderate. 07/24/20 Active Alendronate Sodium 70 MG Oral Tablet [...] (Lasix)Indication s:Heart failure, systolic, due to CAD ([facility]) Take 1 Tablet by mouth [...] state,Moderate episode of recurrent major depressive disorder ([facility]) Take 1 Tablet by mouth [...] needed for Pain, Severe. 90 Tablet 06/12/20 Active Warfarin Sodium 2.5 MG Oral Tablet (Coumadin)Indicat ions:History of artificial heart valve Take 1 Tablet by mouth every evening. OR DIRECTED BY ANTICOAGULATION PHARMACIST 100 Tablet 1 4 5:05 PM EDT 06/13/20 Active Hospital, Clinic, or Other Facility Administered Medication Ordered Dose Route Frequency Start Date End Date Status vitamin b-12 (Cyanocobalamin) inj 1,000 mcgIndications:Vitamin B 12 deficiency 1000 mcg IM [id number] 04/01/2024 03/03/2025 Active documented as of this encounter (statuses as of 06/26/2024) Active Problems Problem Noted Date Diagnosed Date [...] Inhaler Self-Management plan Other/Additional Comments: will contact [facility] Exacerbation plan Chest Xray Assessment [...] CHILDRESS and joint pains since CVA Sees [facility] in [place] for her pain meds - under contract w/ them since 11/2010 - pls do not refill any pain meds through PCP office. OLD MYOCARDIAL INFARCT 03/04/2009 Overview (03/04/2009): Modified by Acute [place] Protocol #5. 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 Study Titile: Genomics Markers for Patients with Cardiovascular Disease Project # [id number] PI: Magdalena Carbone MD Please call [phone] with study related questions CVA 05/02/2006 11/26/2008 Overview (11/26/2008): Modified per CVA protocol #8 ADVANCE DIRECTIVE INFORMATION 12/13/2004 06/16/2024 Overview (12/13/2004): Brochure given to pt. Acute AK 03/04/2009 Overview (03/04/2009): Modified by Acute [place] Protocol #5. PURE HYPERCHOLESTEROLEM 07/13 Overview (07/28/2009): Per Lipid Taxonomy. Need for prophylactic hormon e replacement therapy (postmenopausal) 07/28/2020 documented as of this encounter (statuses as of 06/26/2024) Immunizations Name Administration Dates Next Due COVID-19 mRNA, LNP-s, No Pre serve, 2-Dose Series ([employer]) 06/20/2021,10/06/2020,09/15/2020 COVID-19, LNP-s, No Preserve , Sadi-sucrose, Ages 12+ (Pfizer) 12/20/2021 COVID-19, MRNA-LNP, PF, 30 M CG/0.3 mL, 12 YRS AND ABOVE, IM ([facility]) 06/14/2023 Covid-19, Mrna, Lnp-s, Pf, B ivalent, 30 Mcg, IM, 12 yrs and above ([employer]) 06/06/2022 Pneumococcal Conjugate Vacc, 13 Valent (Prevnar) [...] PM EST Anticoagulation Family Practice [address], [place] [phone] College, Pharmacist [address] [place] [address] 08/18/2024 11:10 AM EST Anticoagulation Family Practice 65 [facility] [address] [facility], [place] [address] College, Pharmacist [address] [place] [address] 08/18/2024 11:20 AM EST Office Visit Family Practice 65 [facility] [address] [facility], [place] [address] Abdon Pa, [address] [place] [address] 10/13/2024 3:00 PM EST Office Visit Cardiology, [facility] [address] [place] [address] Elton Lee PAChrisC [facility] [place] [id number] Health Maintenance Due Date Last Done Comments DISCUSS TOBACCO CESSATION (REFER TO SMARTSET #3301) 1955 Fecal Occult Blood Test 1998 Sigmoidoscopy [...] D LEVEL ONCE IN A LIFETIME-USE SMARTSET# 27381 Completed 10/30/2023, 04/13/2022, 01/10/2022, Additional history exists [...] Documents on File Type Date Recorded Patient Watch Crystal Edge Grinder Expl anation Advance Directives and Living Will 06/17/2021 ADVANCE DIRECTIVE / LIVING WILL Power of Pocketbook Maker 06/17/2021 POWER OF A TTORNEY * Full Code (Latest Code Status on File) Date Activated Date Inactivated Comments 09/21/2008 9:29 AM 09/22/2008 3:05 PM Healthcare Agents on File Name Relationship Healthcare Agent Relationship Communication Fanny Fernandez Other - (no specific identity) Health Care Agent (per Health Care Power of Pocketbook Maker document) Care Teams Frame Wirer Relationship Specialty Start Date End Date Abdon Pa DO [address] [place] [address] PCP - General Internal Medicine 01/24/24 documented as of this encounter
--- OUTSIDE RECORDS SUMMARY | 2024-11-07 07:17 | External Medical Summary ---
Author Name Unknown Address Unknown Organization : Laboratory Report Ordering Provider Test Date Status ROGELIO VALVERDE 06/24/2024 13:08:33 Final Therapeutic ranges for non-o perative patients:
Prophylaxsis/treatment of DVT: (Range:2.0-3.0)
Treatment of pulmonary embolism:(Range:2.0-3.0)
Prevention of systemic embolism from:
-tissue heart valves
-acute myocardial infarction
-valvular heart disease
-atrial fibrillation
(Range: 2.0-3.0)
Mechanical prosthetic valves: (Range: 2.5-3.5) Observation Date Value Abnormality Reference (Units ) Status INR in Capillary blood by Coagulation assay 06/24/2024 13:08:33 2.0 (INR) Final Performing Location
--- OUTSIDE RECORDS SUMMARY | 2024-11-07 07:17 | External Medical Summary | Summary of Care ---
Author Name Unknown Organization [facility] Address [address] [place] [address] Phone [phone] Care Team Providers Care Senior Application Security Consultant Name Role Phone Kayce Pa DO Primary Care Provider [phone] Reason for Visit * Reason Onset Date Comments Medication Refill 06/12/2024 Encounter Details Date Type Department Care Team (Late st Contact Info) Description 06/12/2024 Refill Family Practice [address] [place] [address] [place] [phone] Kayce Pa DO [address] [place], [place] [phone] Lumbar degenerative disc disease Allergies Active Allergy Reactions Criticality Noted Date Comments Clopidogrel Edema face/lips/tongue High 06/03/2020 Other Reaction(s): SWELLING OF FACE/LIPS/TONGUE Oxycodone Edema Other High 12/05/2022 Percodan 11/23/2000 edema Ticagrelor Edema face/lips/tongue High 07/28/2020 Other Reaction(s): SWELLING OF FACE/LIPS/TONGUE documented as of this encounter (statuses as of 06/12/2024) Medications Medication Sig Dispensed Refills Start Date End Date Status Aspirin 81 MG Oral Tablet ChewableIndication s:Coronary artery disease involving [place]apai-apache heart without angina pectoris, unspecified vessel or lesion type Take 1 Tablet by mouth daily. with food. 100 Tablet 5 1 Active Vitamin D3 50 MCG (1999 UT) Oral Capsule Take 1 Capsule by mouth in the morning. 30 Capsule 5 2 Active Calcium 500 MG Oral Tablet Take 1 Tablet by mouth in the morning. With food.. 100 Tablet 11 2 Active oxygen IN GASIndications:Hea rt failure, systolic, due to CAD ([facility]),SOB (shortness of breath),COPD, group B, by GOLD 2017 classification ([facility]),Chronic respiratory failure with hypoxia ([facility]) Portable unit thru [facility]. 2 LPM continuous. 1 Each 3 Active Additional Information Patient taking differently: Portable unit thru [employer].4 LPM continuous., Reported on 11/22/2023 Ventolin HFA 108 (90 Base) MCG/ACT Inhalation Aerosol SolutionIndication s:Asthma with COPD (chronic obstructive pulmonary disease) ([facility]) Inhale 2 Puffs by mouth every 4 hours as needed for Cough, Wheezing or Shortness of Breath. 54 g 3 3 Active Entresto 97-103 MG Oral Tablet (sacubitril-valsar good 97-103 mg per tab)Indications:Co ronary artery disease involving [place]avapai-apache heart without angina pectoris, unspecified vessel or lesion type Take 1 Tablet by mouth in the morning and 1 Tablet before bedtime. 180 Tablet 3 3 Active Acetaminophen 325 MG Oral Tablet (Tylenol)Indicatio ns:Chronic midline low back pain without sciatica Take 2 Tablets by mouth every 8 hours as needed for Pain, Severe or Pain, Moderate. 3 Active Alendronate Sodium 70 MG Oral Tablet (Fosamax)Indicatio ns:Age-related osteoporosis without current pathological fracture TAKE 1 TABLET BY MOUTH ONCE A WEEK WITH 8 OZ OF WATER, AT LEAST 30 MINUTES BEFORE FIRST MEAL OF THE DAY. DO NOT LIE DOWN FOR 30 MINUTES AFTER TAKING 15 Tablet 3 4 09/26/19 25 Active Furosemide 20 MG Oral Tablet (Lasix)Indications :Heart failure, systolic, due to CAD ([facility]) Take 1 Tablet by mouth once a day on Sunday, Sunday, and Sunday only. 30 Tablet 5 4 Active hydrOXYzine HCl 25 MG Oral Tablet Take 1 Tablet by mouth 3 times a day as needed for Itching. 180 Tablet 2 4 Active Mirtazapine 45 MG Oral Tablet (Remeron)Indicatio ns:Anxiety state,Moderate episode of recurrent major depressive disorder (HCC) Take 1 Tablet by mouth at bedtime 100 Tablet 3 4 Active busPIRone HCl 5 MG Oral Tablet (Buspar) take one tablet by mouth in the morning and one tablet before bedtime 200 Tablet 3 4 Active Warfarin Sodium 2.5 MG Oral Tablet (Coumadin)Indicati ons:History of artificial heart valve TAKE UP TO 2 TABLETS BY MOUTH EVERY DAY OR DIRECTED BY ANTICOAGULATION PHARMACIST 180 Tablet 1 4 Active Atorvastatin Calcium 40 MG Oral Tablet (Lipitor)Indicatio ns:Dyslipidemia, goal LDL below 70 TAKE ONE TABLET BY MOUTH EVERY DAY 90 Tablet 2 4 03/27/20 25 Active Famotidine 20 MG Oral Tablet (Pepcid)Indication s:Gastroesophageal reflux disease without esophagitis TAKE ONE TABLET BY MOUTH EVERY MORNING 100 Tablet 3 4 04/02/20 25 Active Desvenlafaxine Succinate ER 100 MG Oral Tablet Extended Release 24 Hour (Pristiq)Indicatio ns:Moderate episode of recurrent major depressive disorder (HCC) Take 1 Tablet by mouth in the morning. 90 Tablet 1 4 Active Ondansetron HCl 4 MG Oral Tablet (Zofran)Indication s:Nausea TAKE ONE TABLET BY MOUTH EVERY 8 HOURS NEEDED FOR NAUSEA 30 Tablet 4 Active Pantoprazole Sodium 40 MG Oral Tablet Delayed Release (Protonix)Indicati ons:Gastroesophage al reflux disease without esophagitis TAKE ONE TABLET BY MOUTH TWICE A DAY in the MORNING AND BEDTIME 200 Tablet 3 4 Active Metoprolol Succinate ER 25 MG Oral Tablet Extended Release 24 Hour (toPROL XL)Indications:Par oxysmal atrial fibrillation (HCC) TAKE ONE TABLET BY MOUTH TWICE A DAY 180 Tablet 4 05/22/20 25 Active amLODIPine Besylate 2.5 MG Oral Tablet (Norvasc)Indicatio ns:HTN, goal below 130/80 Take 1 Tablet by mouth daily. 100 Tablet 3 4 Active Nitroglycerin 0.4 MG Sublingual Tablet Sublingual (Nitrostat)Indicat ions:Coronary atherosclerosis,S/ P angioplasty with stent ONE TAB UNDER TONGUE EVERY 5MIN X3 NEEDED FOR CHEST PAIN, MAX OF 3 DOSES 25 Tablet 1 4 Active HYDROcodone-Acetam inophen 7.5-325 MG Oral TabletIndications: Lumbar degenerative disc disease Take 1 Tablet by mouth every 8 hours as needed for Pain, Severe. 90 Tablet 4 Active HYDROcodone-Acetam inophen 7.5-325 MG Oral TabletIndications: Lumbar degenerative disc disease Take 1 Tablet by mouth every 8 hours as needed for Pain, Severe. 90 Tablet 4 06/12/20 24 Discontinu ed(Refill) Hospital, Clinic, or Other Facility Administered Medication Ordered Dose Route Frequency Start Date End Date Status vitamin b-12 (Cyanocobalamin) inj 1,000 mcgIndications:Vitamin B 12 deficiency 1000 mcg IM [id number] 04/01/2024 03/03/2025 Active documented as of this encounter (statuses as of 06/12/2024) Active Problems Problem Noted Date Diagnosed Date Chronic hypoxemic respiratory failure 08/27/2023 Right upper lobe pulmonary nodule 05/17/2023 B12 deficiency 05/01/2023 History of tobacco use 10/23/2022 Heart failure, systolic, due to CAD 08/19/2021 Overview: EF 09/04 53% Heart Failure "RED FLAG" [...] Gastroesophageal reflux disease without esophagi tis 06/17/2021 Last Assessment & Plan: Sx managed with pantoprazole COPD, group B, by GOLD 2017 classification 10/18 Overview: Per COPD GOLD Classification Last Assessment & Plan: "RED FLAG" COPD symptoms: Increased dyspnea on [...] Inhaler Self-Management plan Other/Additional Comments: will contact [facility] Exacerbation plan Chest Xray Paroxysmal atrial fibrillation 09/16/2020 Last Assessment & Plan: Regular today S/P CABG x 1 07/28/2020 S/P aortic valve replacement 07/28/2020 Hypertension with goal blood pressure less than 140/80 05/17/2020 Anxiety state 05/17/2020 Cerebrovascular disease, arteriosclerotic, post- stroke 01/02/2011 Last Assessment & Plan: Stable -continue warfarin, lipitor, ASA, allergic to plavix DYSLIPIDEMIA, GOAL LDL BELOW 70 07/28/2009 Overview: Per Lipid Taxonomy. Last Assessment & Plan: Continue statin MEDICATION USE AGREEMENT 05/10/2009 Overview: Sees [facility] in [place] for her pain meds - under contract w/ them since 11/2010 - pls do not refill any pain meds through PCP office. Other chronic pain 05/10/2009 Overview: Chronic CHILDRESS and joint pains since CVA Sees [facility] in [place] for her pain meds - under contract w/ them since 11/2010 - pls do not refill any pain meds through PCP office. OLD MYOCARDIAL INFARCT 03/04/2009 Overview: Modified by Acute [place] Protocol #5. 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 Coronary artery disease invo lving [place]avapai-apache heart without angina pectoris Moderate episode of recurrent major depressive d isorder Overview: ICD-10 update of inactive term 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 Overview: slow speech at abseline, also confusion in MyG emails Osteoporosis documented as of this encounter (statuses as of 06/12/2024) Resolved Problems Problem Noted Date Diagnosed Date Resolved Date Food insecurity 05/21/2023 09/27/2023 Overview: Per [facility] Protocol Chronic kidney disease, stage 3a 04/23/2023 10/30/2023 Overview: Per CKD protocol Adjustment disorder with mix ed anxiety and depressed mood 05/16/2022 12/25/2022 Last Assessment & Plan: Depressed but no SI/HI -psych following -continue [...] ANGIOEDEMA 11/22/2009 06/26/2023 Other specified urticaria 09/30/2009 Overview: began 2nd week August, Cerebrovascular disease, art eriosclerotic, post-stroke 11/24/2008 12/29/2010 Overview: Modified per CVA protocol #8 Other nonspecific abnormal c ardiovascular system function study 09/21/2008 07/28/2020 EXAMINATION OF PARTICIPANT I N CLINICAL TRIAL- genomics 09/21/2008 11/26/2009 Overview: Renamed Per Clinical Trials Billing Project. Study Titile: Genomics Markers for Patients with Cardiovascular Disease Project # [id number] PI: Magdalena Carbone MD Please call [phone] with study related questions GENOMICS CARDIO RESEARCH OTHER*[id number] 09/21/2008 09/19/2016 Overview: Renamed Per Clinical Trials Billing Project. Study Titile: Genomics Markers for Patients with Cardiovascular Disease Project # [id number] PI: Magdalena Carbone MD Please call [phone] with study related questions CVA 05/02/2006 11/26/2008 Overview: Modified per CVA protocol #8 Acute NM 03/04/2009 Overview: Modified by Acute [place] Protocol #5. PURE HYPERCHOLESTEROLEM 07/13 Overview: Per Lipid Taxonomy. Need for prophylactic hormon e replacement therapy (postmenopausal) 07/28/2020 documented as of this encounter (statuses as of 06/12/2024) Immunizations Name Administration Dates Next Due COVID-19 mRNA, LNP-s, No Pre serve, 2-Dose Series ([employer]) 06/20/2021,10/06/2020,09/15/2020 COVID-19, LNP-s, No Preserve , Sadi-sucrose, Ages 12+ (Pfizer) 12/20/2021 COVID-19, MRNA-LNP, PF, 30 M CG/0.3 mL, 12 YRS AND ABOVE, IM ([employer]) 06/14/2023 Covid-19, Mrna, Lnp-s, Pf, B ivalent, 30 Mcg, IM, 12 yrs and above ([employer]) 06/06/2022 Pneumococcal Conjugate Vacc, 13 Valent (Prevnar) [...] ages 0-17 years) Not on file 08/27/2023 Sex and Gender Information Value Date Recorded Sex Assigned at Female 05/17/2021 1:50 PM EDT Gender Identity Female 05/17/2021 1:50 PM EDT Sexual Orientation Straight 05/17/2021 1: 50 PM EDT Job Start Date Occupation Industry Not on file Not on file Not on file documented as of this encounter Miscellaneous Notes * Telephone Encounter - Kayce Pa DO - 06/12/2024 2:05 PM EDTSigned Prescriptions: Disp Refills HYDROcodone-Acetaminophen 7.5-325 MG Oral *90 Tab*0 Sig: Take 1 Tablet by mouth every 8 hours as needed for Pain, Severe.Authorizing Provider: KAYCE PA------- * Telephone Encounter - Kayce Pa DO - 06/12/2024 2:05 PM EDT I have reviewed the patients controlled substance dispensing history in the Prescription Drug Monitoring Program in compliance with the [facility] regulations before prescribing a controlled substance. Last [...] be found in Results Review. Medication due today * Telephone Encounter - Jami Hope [facility] - 06/12/2024 1:59 PM EDTPending Prescriptions: Disp Refills HYDROcodone-Acetaminophen 7.5-325 MG Oral *90 Tab*0 Sig: Take 1 Tablet by mouth every 8 hours as needed for Pain, Severe. * Telephone Encounter - Jami Hope [facility] - 06/12/2024 1:50 PM EDT I have reviewed the patients controlled substance dispensing history in the Prescription Drug Monitoring Program in compliance with the [facility] regulations before prescribing a controlled substance. PDMP checked on 06/12/2024. Pending Prescriptions: Disp Refills HYDROcodone-Acetaminophen 7.5-325 MG Oral*90 Tab*0 Sig: Take 1 Tablet by mouth every 8 hours as needed for Pain, Severe. Last Visit: 04/30/2024 (in office), Visit date not found (telemedicine) Next Visit: 06/24/2024 Date medication was last filled: 05/13/24 Date medication is due for refill: 06/12/24 Pharmacy: [id number] [place] [address] Is this request for a controlled substance? [...] Roche, Pharm D, BCACP Clinical Pharmacist [address] [facility] - [facility] 06/12/2024, 1:50 PM Ph. [phone] documented in this encounter Plan of Treatment Upcoming Encounters Date Type Department Care Team (Late st Contact Info) Description 06/24/2024 1:00 PM EST Anticoagulation Family Practice [address] [place] [address] [address] [place] [id number] College, Pharmacist [address] [place] [address] 08/18/2024 11:20 AM EST Office Visit Family Practice [address] [place] [address] [address] [place] [phone] Kayce Pa, [address] [place] [address] 10/13/2024 3:00 PM EST Office Visit Cardiology, [facility] [address] [facility] [place] [address] Elton Lee PA-C [facility] [place] [address] Health Maintenance Due Date Last Done Comments DISCUSS TOBACCO CESSATION (REFER TO SMARTSET #5517) 1955 Fecal Occult Blood Test 1998 Sigmoidoscopy [...] history exists Zoster Vaccines Completed 01/10/2022, 10/19/2021 COVID-19 Vaccine Discontinued 06/14/2023, , 12/20/2021, Additional history exists VITAMIN D LEVEL ONCE IN A LIFETIME-USE SMARTSET# [id number] Completed 10/30/2023, 04/13/2022, 01/10/2022, Additional history exists Lung Cancer Screening Completed 11/12/2023, 023 Influenza Vaccine (FLU shot) Completed 04/30/2024, 04/19/2023, 05/16/2022, Additional history exists HPV (Gardasil) Vaccine Aged [...] as of this encounter Visit Diagnoses Diagnosis Lumbar degenerative disc disease Degeneration of lumbar or lumbosacral intervertebral disc documented in this encounter Advance Directives Documents on File Type Date Recorded Patient Resawyer Expl anation Advance Directives and Living Will 06/17/2021 ADVANCE DIRECTIVE / LIVING WILL Power of Fbi Sharpshooter 06/17/2021 POWER OF A TTORNEY * Full Code (Latest Code Status on File) Date Activated Date Inactivated Comments 09/21/2008 9:29 AM 09/22/2008 3:05 PM Healthcare Agents on File Name Relationship Healthcare Agent Relationship Communication Fanny Fernandez Other - (no specific identity) Health Care Agent (per Health Care Power of Fbi Sharpshooter document) Care Teams Senior Application Security Consultant Relationship Specialty Start Date End Date Kayce Pa DO [address] [place] [address] PCP - General Internal Medicine 01/24/24 documented as of this encounter
--- OUTSIDE RECORDS SUMMARY | 2024-11-07 07:17 | External Medical Summary | Summary of Care ---
Author Name Unknown Organization [facility] Address [address] [place] [address] Phone [phone] Care Team Providers Care Machine Programmer Name Role Phone Abdon Pa DO Primary Care Provider [phone] Encounter Details Date Type Department Care Team (Late st Contact Info) Description 05/27/2024 Population Health External Data Unspecified Department Allergies Active Allergy Reactions Criticality Noted Date Comments Clopidogrel Edema face/lips/tongue High 06/03/2020 Other Reaction(s): SWELLING OF FACE/LIPS/TONGUE Oxycodone Edema Other High 12/05/2022 Percodan 11/23/2000 edema Ticagrelor Edema face/lips/tongue High 07/28/2020 Other Reaction(s): SWELLING OF FACE/LIPS/TONGUE documented as of this encounter (statuses as of 05/28/2024) Medications Medication Sig Dispensed Refills Start Date End Date Status Aspirin 81 MG Oral Tablet ChewableIndications :Coronary artery disease involving assiniboine and sioux heart without angina pectoris, unspecified vessel or lesion type Take 1 Tablet by mouth daily. with food. 100 Tablet 5 07/12/2021 Active Vitamin D3 50 MCG (1999 UT) Oral Capsule Take 1 Capsule by mouth in the morning. 30 Capsule 5 01/12/2022 Active Calcium 500 MG Oral Tablet Take 1 Tablet by mouth in the morning. With food.. 100 Tablet 11 01/12/2022 Active oxygen IN GASIndications:Hear t failure, systolic, due to CAD ([facility]),SOB (shortness of breath),COPD, group B, by GOLD 2017 classification ([facility]),Chronic respiratory failure with hypoxia ([facility]) Portable unit thru [employer]. 2 LPM continuous. 1 Each 05/14/2023 Active Additional Information Patient taking differently: Portable unit thru [employer].4 LPM continuous., Reported on 11/22/2023 Ventolin HFA 108 (90 Base) MCG/ACT Inhalation Aerosol SolutionIndications :Asthma with COPD (chronic obstructive pulmonary disease) ([facility]) Inhale 2 Puffs by mouth every 4 hours as needed for Cough, Wheezing or Shortness of Breath. 54 g 3 05/15/2023 Active Entresto 97-103 MG Oral Tablet (sacubitril-valsart an 97-103 mg per tab)Indications:Cor onary artery disease involving assiniboine and sioux heart without angina pectoris, unspecified vessel or lesion type Take 1 Tablet by mouth in the morning and 1 Tablet before bedtime. 180 Tablet 3 07/04/2023 Active Acetaminophen 325 MG Oral Tablet (Tylenol)Indication s:Chronic midline low back pain without sciatica Take 2 Tablets by mouth every 8 hours as needed for Pain, Severe or Pain, Moderate. 07/24/2023 Active Alendronate Sodium 70 MG Oral Tablet (Fosamax)Indication s:Age-related osteoporosis without current pathological fracture TAKE 1 TABLET BY MOUTH ONCE A WEEK WITH 8 OZ OF WATER, AT LEAST 30 MINUTES BEFORE FIRST MEAL OF THE DAY. DO NOT LIE DOWN FOR 30 MINUTES AFTER TAKING 15 Tablet 3 09/27/2023 09/26/19 25 Active Furosemide 20 MG Oral Tablet (Lasix)Indications: Heart failure, systolic, due to CAD ([facility]) Take 1 Tablet by mouth once a day on Sunday, Sunday, and Sunday only. 30 Tablet 5 11/02/2023 Active hydrOXYzine HCl 25 MG Oral Tablet Take 1 Tablet by mouth 3 times a day as needed for Itching. 180 Tablet 2 02/11/2024 Active Mirtazapine 45 MG Oral Tablet (Remeron)Indication s:Anxiety state,Moderate episode of recurrent major depressive disorder ([facility]) Take 1 Tablet by mouth at bedtime 100 Tablet 3 02/21/2024 Active busPIRone HCl 5 MG Oral Tablet (Buspar) take one tablet by mouth in the morning and one tablet before bedtime 200 Tablet 3 03/05/2024 Active Warfarin Sodium 2.5 MG Oral Tablet (Coumadin)Indicatio ns:History of artificial heart valve TAKE UP TO 2 TABLETS BY MOUTH EVERY DAY OR DIRECTED BY ANTICOAGULATION PHARMACIST 180 Tablet 1 03/25/2024 Active Atorvastatin Calcium 40 MG Oral Tablet (Lipitor)Indication s:Dyslipidemia, goal LDL below 70 TAKE ONE TABLET BY MOUTH EVERY DAY 90 Tablet 2 03/27/2024 03/27/20 25 Active Famotidine 20 MG Oral Tablet (Pepcid)Indications :Gastroesophageal reflux disease without esophagitis TAKE ONE TABLET BY MOUTH EVERY MORNING 100 Tablet 3 04/02/2024 04/02/20 25 Active Desvenlafaxine Succinate ER 100 MG Oral Tablet Extended Release 24 Hour (Pristiq)Indication s:Moderate episode of recurrent major depressive disorder (HCC) Take 1 Tablet by mouth in the morning. 90 Tablet 1 04/28/2024 Active Ondansetron HCl 4 MG Oral Tablet (Zofran)Indications :Nausea TAKE ONE TABLET BY MOUTH EVERY 8 HOURS NEEDED FOR NAUSEA 30 Tablet 05/03/2024 Active HYDROcodone-Acetami nophen 7.5-325 MG Oral TabletIndications:L umbar degenerative disc disease Take 1 Tablet by mouth every 8 hours as needed for Pain, Severe. 90 Tablet 05/13/2024 Active Pantoprazole Sodium 40 MG Oral Tablet Delayed Release (Protonix)Indicatio ns:Gastroesophageal reflux disease without esophagitis TAKE ONE TABLET BY MOUTH TWICE A DAY in the MORNING AND BEDTIME 200 Tablet 3 05/17/2024 Active Metoprolol Succinate ER 25 MG Oral Tablet Extended Release 24 Hour (toPROL XL)Indications:Paro xysmal atrial fibrillation (HCC) TAKE ONE TABLET BY MOUTH TWICE A DAY 180 Tablet 05/22/2024 05/22/20 25 Active amLODIPine Besylate 2.5 MG Oral Tablet (Norvasc)Indication s:HTN, goal below 130/80 Take 1 Tablet by mouth daily. 100 Tablet 3 05/23/2024 Active Nitroglycerin 0.4 MG Sublingual Tablet Sublingual (Nitrostat)Indicati ons:Coronary atherosclerosis,S/P angioplasty with stent ONE TAB UNDER TONGUE EVERY 5MIN X3 NEEDED FOR CHEST PAIN, MAX OF 3 DOSES 25 Tablet 1 05/28/2024 Active Hospital, Clinic, or Other Facility Administered Medication Ordered Dose Route Frequency Start Date End Date Status vitamin b-12 (Cyanocobalamin) inj 1,000 mcgIndications:Vitamin B 12 deficiency 1000 mcg IM [id number] 04/01/2024 03/03/2025 Active documented as of this encounter (statuses as of 05/28/2024) Active Problems Problem Noted Date Diagnosed Date [...] Inhaler Self-Management plan Other/Additional Comments: will contact [facility] Exacerbation plan Chest Xray Paroxysmal atrial fibrillation [...] statin MEDICATION USE AGREEMENT 05/10/2009 Overview: Sees [facility] in [place] for her pain meds - under contract w/ them since 11/2010 - pls do not refill any pain meds through PCP office. Other chronic pain 05/10/2009 Overview: Chronic CHILDRESS and joint pains since CVA Sees [facility] in [place] for her pain meds - under contract w/ them since 11/2010 - pls do not refill any pain meds through PCP office. OLD MYOCARDIAL INFARCT 03/04/2009 Overview: Modified by Acute [facility] Protocol #5. 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 Study Titile: Genomics Markers for Patients with Cardiovascular Disease Project # [id number] PI: Magdalena Carbone MD Please call [phone] with study related questions CVA 05/02/2006 11/26/2008 Overview: Modified per CVA protocol #8 Acute PR 03/04/2009 Overview: Modified by Acute PR Protocol #5. PURE HYPERCHOLESTEROLEM 07/13 Overview: Per Lipid Taxonomy. Need for prophylactic hormon e replacement therapy (postmenopausal) 07/28/2020 documented as of this encounter (statuses as of 05/28/2024) Immunizations Name Administration Dates Next Due COVID-19 mRNA, LNP-s, No Pre serve, 2-Dose Series ([employer]) 06/20/2021,10/06/2020,09/15/2020 COVID-19, LNP-s, No Preserve , Sadi-sucrose, Ages 12+ ([employer]izer) 12/20/2021 COVID-19, MRNA-LNP, 23-24, P F, 30 MCG/0.3 mL, 12 YRS AND ABOVE, IM ([facility]) 06/14/2023 Covid-19, Mrna, Lnp-s, Pf, B ivalent, 30 Mcg, IM, 12 yrs and above ([employer]) 06/06/2022 Pneumococcal Conjugate Vacc, 13 Valent (Prevnar) [...] 1:00 PM EST Anticoagulation Family Practice [address] [facility] [address] [place] [address] College, Pharmacist [address] [place] [address] 08/18/2024 11:20 AM EST Office Visit Family Practice [address] [facility] [address] [facility], [place] [address] Abdon Pa, [address] [facility], [place] [address] 10/13/2024 3:00 PM EST Office Visit Cardiology, [facility] [address] [place] [address] Elton Lee PAChrisC [address] [place] [address] Health Maintenance Due Date Last Done Comments DISCUSS TOBACCO CESSATION (REFER TO SMARTSET #2875) 1953 Fecal Occult Blood Test 1998 Sigmoidoscopy [...] D LEVEL ONCE IN A LIFETIME-USE SMARTSET# [id number] Completed 10/30/2023, 04/13/2022, 01/10/2022, Additional history exists [...] Documents on File Type Date Recorded Patient Security Assurance Analyst Expl anation Advance Directives and Living Will 06/17/2021 ADVANCE DIRECTIVE / LIVING WILL Power of Grain Processor 06/17/2021 POWER OF A TTORNEY * Full Code (Latest Code Status on File) Date Activated Date Inactivated Comments 09/21/2008 9:29 AM 09/22/2008 3:05 PM Healthcare Agents on File Name Relationship Healthcare Agent Relationship Communication Fanny Fernandez Other - (no specific identity) Health Care Agent (per Health Care Power of Grain Processor document) Care Teams Machine Programmer Relationship Specialty Start Date End Date Abdon Pa DO [address] [place] [address] PCP - General Internal Medicine 01/24/24 documented as of this encounter
--- OUTSIDE RECORDS SUMMARY | 2024-11-07 07:17 | External Medical Summary | Summary of Care ---
Author Name Unknown Organization [facility] Address [address] [place] [address] Phone [phone] Care Team Providers Care Director Of Business Services Name Role Phone Abdon Pa DO Primary Care Provider [phone] Encounter Details Date Type Department Care Team (Late st Contact Info) Description 06/24/2024 1:15 PM EST Nurse Only Family Practice [address] [phone] College, Nurse [facility] Prac [address] [address] Arrived Allergies Active Allergy Reactions Criticality Noted Date Comments Clopidogrel Edema face/lips/tongue High 06/03/2020 Other Reaction(s): SWELLING OF FACE/LIPS/TONGUE Oxycodone Edema Other High 12/05/2022 Percodan 11/23/2000 edema Ticagrelor Edema face/lips/tongue High 07/28/2020 Other Reaction(s): SWELLING OF FACE/LIPS/TONGUE documented as of this encounter (statuses as of 06/24/2024) Medications Aspirin 81 MG Oral Tablet ChewableIndicatio ns:Coronary artery disease involving tonawanda heart without angina pectoris, unspecified vessel or [...] art failure, systolic, due to CAD ([facility]),SOB (shortness of breath),COPD, group B, by GOLD 2017 classification ([facility]),Chronic respiratory failure with hypoxia ([facility]) Portable unit thru [employer]. 2 LPM continuous. 1 Each 05/14/20 23 Active Additional Information Patient taking differently: Portable unit thru [employer].4 LPM continuous., Reported on 11/22/2023 Ventolin HFA 108 (90 Base) MCG/ACT Inhalation Aerosol SolutionIndicatio ns:Asthma with COPD (chronic obstructive pulmonary disease) ([facility]) Inhale 2 Puffs by mouth every [...] (Lasix)Indication s:Heart failure, systolic, due to CAD ([facility]) Take 1 Tablet by mouth once [...] episode of recurrent major depressive disorder ([facility]) Take 1 Tablet by mouth at [...] mg per tab)Indications:C oronary artery disease involving tonawanda heart without angina pectoris, unspecified vessel or lesion type Take 1 Tablet by mouth in the morning and 1 Tablet before bedtime. 180 Tablet 3 06/23/20 24 Active Hospital, Clinic, or Other Facility Administered Medication Ordered Dose Route Frequency Start Date End Date Status vitamin b-12 (Cyanocobalamin) inj 1,000 mcgIndications:Vitamin B 12 deficiency 1000 mcg IM [id number] 04/01/2024 03/03/2025 Active documented as of this [...] Inhaler Self-Management plan Other/Additional Comments: will contact [facility] Exacerbation plan Chest Xray Assessment [...] MEDICATION USE AGREEMENT 05/10/2009 Overview (12/30/2010): Sees [facility] in [place] for her pain meds - under contract w/ them since 11/2010 - pls do not refill any pain meds through PCP office. Other chronic pain 05/10/2009 Overview (12/30/2010): Chronic CHILDRESS and joint pains since CVA Sees [facility] in [place] for her pain meds - under contract w/ them since 11/2010 - pls do not refill any pain meds through PCP office. OLD MYOCARDIAL INFARCT 03/04/2009 Overview (03/04/2009): Modified by Acute MS Protocol #5. 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 Study Titile: Genomics Markers for Patients with Cardiovascular Disease Project # [id number] PI: Magdalena Carbone MD Please call [phone] with study related questions CVA 05/02/2006 11/26/2008 [...] mRNA, LNP-s, No Pre serve, 2-Dose Series ([employer]) 06/20/2021,10/06/2020,09/15/2020 COVID-19, LNP-s, No Preserve , Sadi-sucrose, Ages 12+ (Pfizer) 12/20/2021 COVID-19, MRNA-LNP, PF, 30 M CG/0.3 mL, 12 YRS AND ABOVE, IM ([employer]) 06/24/2024,06/14/2023 Covid-19, Mrna, Lnp-s, Pf, B ivalent, 30 Mcg, IM, 12 yrs and above ([employer]) 06/06/2022 Pneumococcal Conjugate Vacc, 13 Valent (Prevnar) [...] Progress Notes * Becki Mora LPN - 06/24/2024 1:22 PM EST Pre-Administration Time Out Procedure Performed: Yes Patient Identified (Ask Name/Date of ): Yes Does the patient have a fever greater than 101 degrees today? No Patient allergic to latex? No Has the patient ever fainted after receiving an injection? No VFC Stock: No Immunization(s) verified: no Immunization Name: VIS Sheet(s) given: No Verified Side and Site: Yes Verified Shot(s) with Parent(s)/Patient: Yes documented in this encounter Plan of Treatment Upcoming Encounters Date Type Department Care Team (Late st Contact Info) Description 07/18/2024 1:00 PM EST Anticoagulation Family Practice 65 [facility] [address] [place] [phone] College, Pharmacist [address] [place] [address] 08/18/2024 11:10 AM EST Anticoagulation Family Practice 65 [facility] [address] [place] [phone] College, Pharmacist [address] [place] [address] 08/18/2024 11:20 AM EST Office Visit Family Practice [address] [facility] [address] [place] [phone] Abdon Pa, DO [address] [place] [address] 10/13/2024 3:00 PM EST Office Visit Cardiology, [facility] [address] [place] [address] Elton Lee, PA-C [address] [place] [address] Health Maintenance Due Date Last Done Comments DISCUSS TOBACCO CESSATION (REFER TO SMARTSET #2999) 1955 Fecal Occult Blood Test 1998 Sigmoidoscopy [...] Additional history exists Albumin/Creatinine Ratio 10/30/2026 10/31/2023, 10/0 12/2021 DTap/Tdap Vaccines (3 - Td or Tdap) 01/11/2032 01/10/2022, 10/15/2007 Alpha-1 Antitrypsin Completed 08/19/2021 Pneumococcal Vaccine: 65+ Years Completed 10/19/2021, 05/10/2020, 04/22/2019, Additional history exists Zoster Vaccines Completed 01/10/2022, 10/19/2021 VITAMIN D LEVEL ONCE IN A LIFETIME-USE SMARTSET# [id number] Completed 10/30/2023, 04/13/2022, 01/10/2022, Additional history exists [...] systolic heart failure Coronary artery disease involving tonawanda coronary artery of tonawanda heart without angina pectoris Old myocardial infarct Old myocardial infarction Paroxysmal atrial fibrillation (HCC) Atrial fibrillation Dyslipidemia, goal LDL below 70 Other and unspecified hyperlipidemia Gastroesophageal reflux disease without esophagitis Esophageal reflux Adjustment disorder with mixed anxiety and depressed mood half-way current use of 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 S/P angioplasty with stent Postsurgical percutaneous transluminal coronary angioplasty status S/P aortic valve replacement Heart valve replaced by other means 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)- Primary Heart failure, systolic, due to [...] (Cyanocobalamin) inj 1,000 mcg 1,000 mcg, Intramuscular, [id number], First dose on Sun04/01/24 at 1345, Last dose on Sun02/03/25 at 1345, For 12 dosesIndications:Vitamin B 12 deficiency Given 06/24/2024 1:19 PM EST 1,000 mcg Arm Left Upper Given 05/27/2024 1:33 PM EDT 1,000 mcg De ltoid Left Upper Given 04/30/2024 10:05 AM EDT 1,000 mcg A rm Right Upper documented in this encounter Advance Directives Documents on File Type Date Recorded Patient Supervisor Smoke Control Expl anation Advance Directives and Living Will 06/17/2021 ADVANCE DIRECTIVE / LIVING WILL Power of Fundraising Sale Representative 06/17/2021 POWER OF A TTORNEY * Full Code (Latest Code Status on File) Date Activated Date Inactivated Comments 09/21/2008 9:29 AM 09/22/2008 3:05 PM Healthcare Agents on File Name Relationship Healthcare Agent Relationship Communication Fanny Fernandez Other - (no specific identity) Health Care Agent (per Health Care Power of Fundraising Sale Representative document) Care Teams Director Of Business Services Relationship Specialty Start Date End Date Abdon Pa DO [address] [place] [address] PCP - General Internal Medicine 01/24/24 documented as of this encounter
--- OUTSIDE RECORDS SUMMARY | 2024-11-07 07:17 | External Medical Summary | Summary of Care ---
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, unspecified vessel or lesion type Allergies Active Allergy Reactions Criticality Noted Date Comments Clopidogrel Edema face/lips/tongue High 06/03/2020 Other Reaction(s): SWELLING OF FACE/LIPS/TONGUE Oxycodone Edema Other High 12/05/2022 Percodan 11/23/2000 edema Ticagrelor Edema face/lips/tongue High 07/28/2020 Other Reaction(s): SWELLING OF FACE/LIPS/TONGUE documented as of this encounter (statuses as of 06/23/2024) Medications Aspirin 81 MG Oral Tablet ChewableIndicatio ns: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 2 LPM continuous. 1 Each 05/14/20 23 Active Additional Information Patient taking differently: Portable unit thru [facility].4 LPM continuous., Reported on 11/22/2023 Ventolin HFA 108 (90 Base) MCG/ACT Inhalation Aerosol SolutionIndicatio ns:Asthma with COPD (chronic obstructive pulmonary disease) ([facility]) Inhale 2 Puffs by mouth [...] (Lasix)Indication s:Heart failure, systolic, due to CAD ([facility]) Take 1 Tablet by mouth [...] state,Moderate episode of recurrent major depressive disorder ([facility]) Take 1 Tablet by mouth [...] 2 4 2:39 PM EDT 03/27/20 24 2024 Active Famotidine 20 MG [...] mg per tab)Indications:C oronary artery disease involving oneida heart without angina pectoris, unspecified vessel or lesion type Take 1 Tablet by mouth in the morning and 1 Tablet before bedtime. 180 Tablet 3 06/23/20 24 Active Entresto 97-103 MG Oral Tablet (sacubitril-valsa rtan 97-103 mg per tab)Indications:C oronary artery disease involving oneida heart without angina pectoris, unspecified vessel or lesion type Take 1 Tablet by mouth in the morning and 1 Tablet before bedtime. 180 Tablet 3 4 2:39 PM EDT 07/04/20 23 2023 Disconti nued(Ref ill) Hospital, Clinic, or Other Facility Administered Medication Ordered Dose Route Frequency Start Date End Date Status vitamin b-12 (Cyanocobalamin) inj 1,000 mcgIndications:Vitamin B 12 deficiency 1000 mcg IM [id number] 04/01/2024 03/03/2025 Active documented as of this encounter (statuses as of 06/23/2024) Active Problems Problem Noted Date Diagnosed Date [...] Self-Management plan Other/Additional Comments: will contact [facility] Exacerbation plan Chest Xray Assessment [...] Overview (12/30/2010): Sees [facility] in [place] for her pain meds - under contract w/ them since 11/2010 - pls do not refill any pain meds through PCP office. Other chronic pain 05/10/2009 Overview (12/30/2010): Chronic CHILDRESS and joint pains since CVA Sees [facility] in [place] for her pain meds - under contract w/ them since 11/2010 - pls do not refill any pain meds through PCP office. OLD MYOCARDIAL INFARCT 03/04/2009 Overview (03/04/2009): Modified by [facility] [place] Protocol #5. 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 Study Titile: Genomics Markers for Patients with Cardiovascular Disease Project # [id number] PI: Magdalena Carbone MD Please call [phone] with study related questions CVA 05/02/2006 11/26/2008 Overview (11/26/2008): Modified per CVA protocol #8 ADVANCE DIRECTIVE INFORMATION 12/13/2004 06/16/2024 Overview (12/13/2004): Brochure given to pt. [place] 03/04/2009 Overview (03/04/2009): Modified by [facility] [place] Protocol #5. PURE HYPERCHOLESTEROLEM 07/13 Overview (07/28/2009): Per Lipid Taxonomy. Need for prophylactic hormon e replacement therapy (postmenopausal) 07/28/2020 documented as of this encounter (statuses as of 06/23/2024) Immunizations Name Administration Dates Next Due COVID-19 mRNA, LNP-s, No Pre serve, 2-Dose Series ([employer]) 06/20/2021,10/06/2020,09/15/2020 COVID-19, LNP-s, No Preserve , Sadi-sucrose, Ages 12+ (Pfizer) 12/20/2021 COVID-19, MRNA-LNP, PF, 30 M CG/0.3 mL, 12 YRS AND ABOVE, IM (PFIZER-Comirnaty) 06/14/2023 Covid-19, Mrna, Lnp-s, Pf, B ivalent, [...] encounter Miscellaneous Notes * Telephone Encounter - Mari Suresh, [facility] - 06/23/2024 8:11 AM ESTSigned Prescriptions: Disp Refills Entresto 97-103 MG Oral Tablet (sacubitril*180 Ta*3 Sig: Take 1 Tablet by mouth in the morning and 1 Tablet before bedtime. Authorizing Provider: GANESH COLIN Ordering User: MARI SURESH * Telephone Encounter - Francisco Bass [facility] - 06/22/2024 6:21 AM ESTPending Prescriptions: Disp Refills Entresto 97-103 MG Oral Tablet (sacubitril*180 Ta*3 Sig: Take 1 Tablet by mouth in the morning and 1 Tablet before bedtime. * Telephone Encounter - Filiberto Alejandre, [employer] - 06/20/2024 11:40 AM EST Did you pend patient's preferred pharmacy and medication before forwarding?yes Pharmacy: [facility] Pending Prescriptions: Disp Refills Entresto 97-103 MG Oral Tablet (sacubitri*180 Ta*3 Sig: Take 1 Tablet by mouth in the morning and 1 Tablet before bedtime. Last Visit: 08/23/2022 (in office), Visit date not found (telemedicine) Next Visit: 10/13/2024 If no future appointments scheduled, and last appointment is greater than a year ago, please schedule patient for a follow-up appointment Last date the medication was ordered: 07/04/23 Is this request for a controlled substance?No [...] found in Results Review. Patient Phone Numbers Labs: Lab Results Component Value Date/Time CREAT [...] 11:34 AM HGBA1C 6.2 09/18/2011 01:06 PM Thank you, Filiberto Alejandre [facility] Client Resource Specialist III [facility] 06/20/2024, 11:40 AM documented in this encounter Plan of Treatment Upcoming Encounters Date Type Department Care Team (Late st Contact Info) Description 06/24/2024 1:00 PM EST Anticoagulation Family Practice [address] [facility] [address] [place] [phone] College, Pharmacist [address] [place] [address] 08/18/2024 11:20 AM EST Office Visit Family Practice [address] [facility] [address] [place] [phone] Abdon Pa DO [address] [facility], [place] [address] 10/13/2024 3:00 PM EST Office Visit Cardiology, [facility] [address] [place] [address] Ganesh Colin PA-C [address] [facility] [address] Health Maintenance Due Date Last Done Comments DISCUSS TOBACCO CESSATION (REFER TO SMARTSET #[id number]) 1953 Fecal Occult Blood Test 1998 Sigmoidoscopy [...] D LEVEL ONCE IN A LIFETIME-USE SMARTSET# [id number] Completed 10/30/2023, 04/13/2022, 01/10/2022, Additional history exists [...] systolic heart failure Coronary artery disease involving oneida coronary artery of oneida heart without angina pectoris Old myocardial infarct Old myocardial infarction Paroxysmal atrial fibrillation (HCC) Atrial fibrillation Dyslipidemia, goal LDL below 70 Other and unspecified hyperlipidemia Gastroesophageal reflux disease without esophagitis Esophageal reflux Adjustment disorder with mixed anxiety and depressed mood skilled nursing current use of 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 S/P angioplasty [...] Advanced care planning/counseling discussion Other specified counseling 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, unspecified vessel or lesion type documented in this encounter Advance Directives Documents on File Type Date Recorded Patient Traffic Clerk Expl anation Advance Directives and Living Will 06/17/2021 ADVANCE DIRECTIVE / LIVING WILL Power of Manager [place] 06/17/2021 POWER OF A TTORNEY * Full Code (Latest Code Status on File) Date Activated Date Inactivated Comments 09/21/2008 9:29 AM 09/22/2008 3:05 PM Healthcare Agents on File Name Relationship Healthcare Agent Relationship Communication Fanny Fernandez Other - (no specific identity) Health Care Agent (per Health Care Power of Manager [place] document) Care Teams Manager Target Relationship Specialty Start Date End Date Abdon Pa DO [address] [place] [address] PCP - General Internal Medicine 01/24/24 documented as of this encounter
--- OUTSIDE RECORDS SUMMARY | 2024-11-07 07:17 | External Medical Summary | Summary of Care ---
Author Name Unknown Organization [facility] Address [address] [place] [address] Phone [phone] Care Team Providers Care Spare Hand Carding Name Role Phone Abdon Pa DO Primary Care Provider [phone] Reason for Visit * Reason Onset Date Comments Medication Refill 06/12/2024 Encounter Details Date Type Department Care Team (Late st Contact Info) Description 06/12/2024 Refill Family Practice [address] [place] [address] [place] [phone] Abdon Pa DO [address] [place], [place] [phone] CORONARY ATHEROSCLEROSIS OF UNSPECIFIED TYPE OF VESSEL, TWENTY-NINE PALMS OR GRAFT; S/P angioplasty with stent Allergies Active Allergy Reactions Criticality Noted Date Comments Clopidogrel Edema face/lips/tongue High 06/03/2020 Other Reaction(s): SWELLING OF FACE/LIPS/TONGUE Oxycodone Edema Other High 12/05/2022 Percodan 11/23/2000 edema Ticagrelor Edema face/lips/tongue High 07/28/2020 Other Reaction(s): SWELLING OF FACE/LIPS/TONGUE documented as of this encounter (statuses as of 06/13/2024) Medications Medication Sig Dispensed Refills Start Date End Date Status Aspirin 81 MG Oral Tablet ChewableIndications :Coronary artery disease involving [place] heart without angina pectoris, unspecified vessel or lesion type Take 1 Tablet by mouth daily. with food. 100 Tablet 5 07/12/2021 Active Vitamin D3 50 MCG (2000 UT) Oral Capsule Take 1 Capsule by mouth in the morning. 30 Capsule 5 01/12/2022 Active Calcium 500 MG Oral Tablet Take 1 Tablet by mouth in the morning. With food.. 100 Tablet 11 01/12/2022 Active oxygen IN GASIndications:Hear t failure, systolic, due to CAD ([facility]),SOB (shortness of breath),COPD, group B, by GOLD 2017 classification ([facility]),Chronic respiratory failure with hypoxia ([facility]) Portable unit thru [employer]. 2 LPM continuous. 1 Each 05/14/2023 Active Additional Information Patient taking differently: Portable unit thru [employer].4 LPM continuous., Reported on 11/22/2023 Ventolin HFA 108 (90 Base) MCG/ACT Inhalation Aerosol SolutionIndications :Asthma with COPD (chronic obstructive pulmonary disease) ([facility]) Inhale 2 Puffs by mouth every 4 hours as needed for Cough, Wheezing or Shortness of Breath. 54 g 3 05/15/2023 Active Entresto 97-103 MG Oral Tablet (sacubitril-valsart an 97-103 mg per tab)Indications:Cor onary artery disease involving [place] heart without angina pectoris, unspecified vessel or [...] (Lasix)Indications: Heart failure, systolic, due to CAD ([facility]) Take 1 Tablet by mouth once a [...] before bedtime 200 Tablet 3 03/05/2024 Active Atorvastatin Calcium 40 MG Oral Tablet [...] NEEDED FOR NAUSEA 30 Tablet 05/03/2024 Active Pantoprazole Sodium 40 MG Oral Tablet [...] 3 DOSES 25 Tablet 1 05/28/2024 Active HYDROcodone-Acetami nophen 7.5-325 MG Oral TabletIndications:L umbar degenerative disc disease Take 1 Tablet by mouth every 8 hours as needed for Pain, Severe. 90 Tablet 06/12/2024 Active Warfarin Sodium 2.5 MG Oral Tablet (Coumadin)Indicatio ns:History of artificial heart valve Take 1 Tablet by mouth every evening. OR DIRECTED BY ANTICOAGULATION PHARMACIST 100 Tablet 1 06/13/2024 Active Hospital, Clinic, or Other Facility Administered Medication Ordered Dose Route Frequency Start Date End Date Status vitamin b-12 (Cyanocobalamin) inj 1,000 mcgIndications:Vitamin B 12 deficiency 1000 mcg IM [id number] 04/01/2024 03/03/2025 Active documented as of this encounter (statuses as of 06/13/2024) Active Problems Problem Noted Date Diagnosed Date [...] plan Other/Additional Comments: will contact [facility] Exacerbation plan Chest Xray Paroxysmal atrial [...] statin MEDICATION USE AGREEMENT 05/10/2009 Overview: Sees [facility] in [place] for her pain meds - under contract w/ them since 11/2010 - pls do not refill any pain meds through PCP office. Other chronic pain 05/10/2009 Overview: Chronic CHILDRESS and joint pains since CVA Sees [facility] in [place] for her pain meds - under contract w/ them since 11/2010 - pls do not refill any pain meds through PCP office. OLD MYOCARDIAL INFARCT 03/04/2009 Overview: Modified by Acute [place] Protocol #5. Last Assessment & Plan: No angina Continue above regimen S/P angioplasty with stent 09/21/2008 group home current use of 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 0 05/02/2006 Overview: ICD-10 update of inactive term Anticoagulation management encounter 05/02/2006 ADVANCE DIRECTIVE INFORMATION 12/13/2004 Overview: Brochure given to pt. 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 Study Titile: Genomics Markers for Patients with Cardiovascular Disease Project # [id number] PI: Magdalena Carbone MD Please call [phone] with study related questions GENOMICS CARDIO RESEARCH OTHER*[id number] 09/21/2008 09/19/2016 Overview: Renamed Per Clinical Trials Billing Project. Study Titile: Genomics Markers for Patients with Cardiovascular Disease Project # [id number] PI: Magdalena Carbone MD Please call [phone] with study related questions CVA 05/02/2006 11/26/2008 Overview: Modified per CVA protocol #8 Acute [place] 03/04/2009 Overview: Modified by [place] Protocol #5. PURE HYPERCHOLESTEROLEM 07/13 Overview: Per Lipid Taxonomy. Need for prophylactic hormon e replacement therapy (postmenopausal) 07/28/2020 documented as of this encounter (statuses as of 06/13/2024) Immunizations Name Administration Dates Next Due COVID-19 mRNA, LNP-s, No Pre serve, 2-Dose Series ([employer]) 06/20/2021,10/06/2020,09/15/2020 COVID-19, LNP-s, No Preserve , Sadi-sucrose, Ages 12+ (Pfizer) 12/20/2021 COVID-19, MRNA-LNP, PF, 30 M CG/0.3 mL, 12 YRS AND ABOVE, IM (PFIZER-Comirnaty) 06/14/2023 Covid-19, Mrna, Lnp-s, Pf, B ivalent, 30 Mcg, IM, 12 yrs and above ([employer]) 06/06/2022 Pneumococcal Conjugate Vacc, 13 Valent (Prevnar) [...] Notes * Telephone Encounter - Jami Hope RPh - 06/13/2024 2:42 PM EDT Declined nitroglycerin refill as it was just filled 2 weeks ago. Jami Roche, Pharm D, BCACP Clinical Pharmacist [address] - [facility] 06/13/2024, 2:42 PM Ph. [phone] documented in this encounter Plan of Treatment Upcoming Encounters Date Type Department Care Team (Late st Contact Info) Description 06/24/2024 1:00 PM EST Anticoagulation Family Practice [address] [facility] [address] [place] [address] College, Pharmacist [address] [place] [address] 08/18/2024 11:20 AM EST Office Visit Family Practice [address] [facility] [address] [place] [address] Abdon Pa, [address] [place] [address] 10/13/2024 3:00 PM EST Office Visit Cardiology, [facility] [address] [place] [address] Elton Lee PA-C [address] [place] [address] Health Maintenance Due Date Last Done Comments DISCUSS TOBACCO CESSATION (REFER TO SMARTSET #4784) 1955 Fecal Occult Blood Test 1998 Sigmoidoscopy [...] D LEVEL ONCE IN A LIFETIME-USE SMARTSET# [id number] Completed 10/30/2023, 04/13/2022, 01/10/2022, Additional history exists [...] as of this encounter Visit Diagnoses Diagnosis CORONARY ATHEROSCLEROSIS OF UNSPECIFIED TYPE OF VESSEL, TWENTY-NINE PALMS OR GRAFT Coronary atherosclerosis of unspecified type of vessel, [place] or graft S/P angioplasty with stent Postsurgical percutaneous transluminal coronary angioplasty status documented in this encounter Advance Directives Documents on File Type Date Recorded Patient Nursing Attendant Expl anation Advance Directives and Living Will 06/17/2021 ADVANCE DIRECTIVE / LIVING WILL Power of Apprentice Plant Attendant 06/17/2021 POWER OF A TTORNEY * Full Code (Latest Code Status on File) Date Activated Date Inactivated Comments 09/21/2008 9:29 AM 09/22/2008 3:05 PM Healthcare Agents on File Name Relationship Healthcare Agent Relationship Communication Fanny Fernandez Other - (no specific identity) Health Care Agent (per Health Care Power of Apprentice Plant Attendant document) Care Teams Spare Hand Carding Relationship Specialty Start Date End Date Abdon Pa DO [address] [facility] [place] [address] PCP - General Internal Medicine 01/24/24 documented as of this encounter
--- OUTSIDE RECORDS SUMMARY | 2024-11-07 07:17 | External Medical Summary | Summary of Care ---
Author Name Unknown Organization [facility] Address [address] [place] [address] Phone [phone] Care Team Providers Care Inventory Control Assistant Name Role Phone Kayce Pa DO Primary Care Provider [phone] Reason for Visit * Reason Comments eRx-Medication Refill Encounter Details Date Type Department Care Team (Late st Contact Info) Description 05/26/2024 Refill Family Practice [address] [place] [address] [place] [address] Kayce Pa DO [address] [place] [address] CORONARY ATHEROSCLEROSIS OF UNSPECIFIED TYPE OF VESSEL, CHILKOOT OR GRAFT; S/P angioplasty with stent Allergies [...] Oral Tablet ChewableIndication s:Coronary artery disease involving ute heart without angina pectoris, unspecified vessel or [...] 100 Tablet 01/13/20 22 Active oxygen IN GASIndications:Hea rt failure, systolic, due to CAD ([facility]),SOB (shortness of breath),COPD, group B, by GOLD 2017 classification ([facility]),Chronic respiratory failure with hypoxia ([facility]) Portable unit thru [employer]. 2 LPM continuous. 1 Each 05/14/20 23 Active Additional Information Patient taking differently: Portable unit thru [employer].4 LPM continuous., Reported on 11/22/2023 Ventolin HFA 108 (90 Base) MCG/ACT Inhalation Aerosol SolutionIndication s:Asthma with COPD (chronic obstructive pulmonary disease) ([facility]) Inhale 2 Puffs by mouth every 4 hours as needed for Cough, Wheezing or Shortness of Breath. 54 g 3 05/15/20 23 Active Entresto 97-103 MG Oral Tablet (sacubitril-valsar good 97-103 mg per tab)Indications:Co ronary artery disease involving ute heart without angina pectoris, unspecified vessel or lesion type Take 1 Tablet by mouth in the morning and 1 Tablet before bedtime. 180 Tablet 3 07/04/20 23 Active Acetaminophen 325 MG Oral Tablet (Tylenol)Indicatio [...] 30 MINUTES AFTER TAKING 15 Tablet 3 09/27/19 24 025 Active Furosemide 20 MG Oral Tablet (Lasix)Indications :Heart failure, systolic, due to CAD ([facility]) Take 1 Tablet by mouth once a day on Sunday, Sunday, and Sunday only. 30 Tablet 5 11/02/19 24 Active hydrOXYzine HCl 25 MG Oral Tablet Take 1 Tablet by mouth 3 times a day as needed for Itching. 180 Tablet 2 02/11/20 24 Active Mirtazapine 45 MG Oral Tablet (Remeron)Indicatio ns:Anxiety state,Moderate episode of recurrent major depressive disorder (HCC) Take 1 Tablet by mouth at bedtime 100 Tablet 3 02/21/20 24 Active busPIRone HCl 5 MG Oral Tablet (Buspar) take one tablet by mouth in the morning and one tablet before bedtime 200 Tablet 3 03/05/20 24 Active Warfarin Sodium 2.5 MG Oral Tablet (Coumadin)Indicati ons:History of artificial heart valve TAKE UP TO 2 TABLETS BY MOUTH EVERY DAY OR DIRECTED BY ANTICOAGULATION PHARMACIST 180 Tablet 1 03/25/20 24 Active Atorvastatin Calcium 40 MG Oral Tablet (Lipitor)Indicatio ns:Dyslipidemia, goal LDL below 70 TAKE ONE TABLET BY MOUTH EVERY DAY 90 Tablet 2 03/27/20 24 025 Active Famotidine 20 MG Oral Tablet (Pepcid)Indication s:Gastroesophageal reflux disease without esophagitis TAKE ONE TABLET BY MOUTH EVERY MORNING 100 Tablet 3 04/02/20 24 025 Active Desvenlafaxine Succinate ER 100 MG Oral Tablet Extended Release 24 Hour (Pristiq)Indicatio ns:Moderate episode of recurrent major depressive disorder (HCC) Take 1 Tablet by mouth in the morning. 90 Tablet 1 04/28/20 24 Active Ondansetron HCl 4 MG Oral Tablet (Zofran)Indication s:Nausea TAKE ONE TABLET BY MOUTH EVERY 8 HOURS NEEDED FOR NAUSEA 30 Tablet 05/03/20 24 Active HYDROcodone-Acetam inophen 7.5-325 MG Oral TabletIndications: Lumbar degenerative disc disease Take 1 Tablet by mouth every 8 hours as needed for Pain, Severe. 90 Tablet 05/13/20 24 Active Pantoprazole Sodium 40 MG Oral Tablet Delayed Release (Protonix)Indicati ons:Gastroesophage al reflux disease without esophagitis TAKE ONE TABLET BY MOUTH TWICE A DAY in the MORNING AND BEDTIME 200 Tablet 3 05/17/20 24 Active Metoprolol Succinate ER 25 MG Oral Tablet Extended Release 24 Hour (toPROL XL)Indications:Par oxysmal atrial fibrillation (HCC) TAKE ONE TABLET BY MOUTH TWICE A DAY 180 Tablet 05/22/20 24 025 Active amLODIPine Besylate 2.5 MG Oral Tablet (Norvasc)Indicatio ns:HTN, goal below 130/80 Take 1 Tablet by mouth daily. 100 Tablet 3 05/23/20 24 Active Nitroglycerin 0.4 MG Sublingual Tablet Sublingual (Nitrostat)Indicat ions:Coronary atherosclerosis,S/ P angioplasty with stent ONE TAB UNDER TONGUE EVERY 5MIN X3 NEEDED FOR CHEST PAIN, MAX OF 3 DOSES 25 Tablet 1 05/28/20 24 Active Nitroglycerin 0.4 MG Sublingual Tablet Sublingual (Nitrostat)Indicat ions:Coronary atherosclerosis,S/ P angioplasty with stent one tab under tongue every 5min x3 as needed for chest pain, max of 3 doses 25 Tablet 1 10/31/19 24 024 Discontinued Hospital, Clinic, or Other Facility Administered Medication Ordered Dose Route Frequency Start Date End Date Status vitamin b-12 (Cyanocobalamin) inj 1,000 mcgIndications:Vitamin B 12 deficiency 1000 mcg IM [id number] 04/01/2024 03/03/2025 Active documented as of this [...] Inhaler Self-Management plan Other/Additional Comments: will contact [facility] Exacerbation plan Chest Xray Paroxysmal atrial [...] statin MEDICATION USE AGREEMENT 05/10/2009 Overview: Sees [facility] in [place] for her pain meds - under contract w/ them since 11/2010 - pls do not refill any pain meds through PCP office. Other chronic pain 05/10/2009 Overview: Chronic CHILDRESS and joint pains since CVA Sees [facility] in [place] for her pain meds - under contract w/ them since 11/2010 - pls do not refill any pain meds through PCP office. OLD MYOCARDIAL INFARCT 03/04/2009 Overview: Modified by [facility] [place] Protocol #5. Last Assessment & Plan: No angina Continue above regimen S/P angioplasty with stent 09/21/2008 group home current use of 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 0 05/02/2006 Overview: ICD-10 update of inactive term Anticoagulation management encounter 05/02/2006 ADVANCE DIRECTIVE INFORMATION 12/13/2004 Overview: Brochure given to pt. Coronary artery disease invo lving ute heart without angina pectoris Moderate episode of [...] for Patients with Cardiovascular Disease Project # [id number] PI: Magdalena Carbone MD Please call [phone] with study related questions GENOMICS CARDIO RESEARCH OTHER*[id number] 09/21/2008 09/19/2016 Overview: Renamed Per Clinical Trials Billing Project. Study Titile: Genomics Markers for Patients with Cardiovascular Disease Project # [id number] PI: Magdalena Carbone MD Please call [phone] with study related questions CVA 05/02/2006 11/26/2008 Overview: Modified per CV[facility] protocol #8 [place] 03/04/2009 Overview: Modified by [facility] [place] Protocol #5. PURE HYPERCHOLESTEROLEM 07/13 Overview: Per Lipid Taxonomy. Need for prophylactic hormon e replacement therapy (postmenopausal) 07/28/2020 documented as of this encounter (statuses as of 05/28/2024) Immunizations Name Administration Dates Next Due COVID-19 mRNA, LNP-s, No Pre serve, 2-Dose Series ([employer]) 06/20/2021,10/06/2020,09/15/2020 COVID-19, LNP-s, No Preserve , Sadi-sucrose, Ages 12+ (Pfizer) 12/20/2021 COVID-19, MRNA-LNP, 23-24, P F, 30 MCG/0.3 mL, 12 YRS AND ABOVE, IM ([employer]-Comirnaty) 06/14/2023 Covid-19, Mrna, Lnp-s, Pf, B ivalent, [...] encounter Miscellaneous Notes * Telephone Encounter - Rita Braga [facility] - 05/28/2024 9:21 AM EDTSigned Prescriptions: Disp Refills Nitroglycerin 0.4 MG Sublingual Tablet Sub*25 Tab*1 Sig: ONE TABUNDER TONGUE EVERY 5MIN X3 NEEDED FOR CHEST PAIN, MAX OF 3 DOSESAuthorizing Provider: SULMANKAYCE User: RITA BRAGA documented in this encounter Plan of Treatment Upcoming Encounters Date Type Department Care Team (Late st Contact Info) Description 06/24/2024 1:00 PM EST Anticoagulation Family Practice [address] [facility] [address] [place] [phone] College, Pharmacist [address] [place] [address] 08/18/2024 11:20 AM EST Office Visit Family Practice [address] [facility] [address] [place] [phone] Kayce Pa, [address] [place] [address] 10/13/2024 3:00 PM EST Office Visit Cardiology, [facility] [address] [address] Elton Lee, PA-C [facility] [address] [address] Health Maintenance Due Date Last Done Comments DISCUSS TOBACCO CESSATION (REFER TO SMARTSET #8718) 1955 Fecal Occult Blood Test 1998 Sigmoidoscopy [...] D LEVEL ONCE IN A LIFETIME-USE SMARTSET# [id number] Completed 10/30/2023, 04/13/2022, 01/10/2022, Additional history exists [...] CORONARY ATHEROSCLEROSIS OF UNSPECIFIED TYPE OF VESSEL, CHILKOOT OR GRAFT Coronary atherosclerosis of unspecified type of vessel, ute or graft S/P angioplasty with stent Postsurgical percutaneous transluminal coronary angioplasty status documented in this encounter Advance Directives Documents on File Type Date Recorded Patient Seo Associate Expl anation Advance Directives and Living Will 06/17/2021 ADVANCE DIRECTIVE / LIVING WILL Power of Technical Coordinator 06/17/2021 POWER OF A TTORNEY * Full Code (Latest Code Status on File) Date Activated Date Inactivated Comments 09/21/2008 9:29 AM 09/22/2008 3:05 PM Healthcare Agents on File Name Relationship Healthcare Agent Relationship Communication Fanny Fernandez Other - (no specific identity) Health Care Agent (per Health Care Power of Technical Coordinator document) Care Teams Inventory Control Assistant Relationship Specialty Start Date End Date Kayce Pa DO [address] [place] [address] PCP - General Internal Medicine 01/24/24 documented as of this encounter
--- OUTSIDE RECORDS SUMMARY | 2024-11-07 07:18 | External Medical Summary | Summary of Care ---
Author Name Unknown Organization [facility] Address [address] [place] [address] Phone [phone] Care Team Providers Care Veterinary Inspector Name Role Phone Kayce Pa DO Primary Care Provider Reason for Visit * Reason Onset Date Comments Medication Refill 05/11/2024 Encounter Details Date Type Department Care Team (Late st Contact Info) Description 05/11/2024 Refill Family Practice [address] [place] [address] [place] [phone] Kayce Pa DO [address] [place], [place] [id number] Lumbar degenerative disc disease Allergies Active Allergy Reactions Criticality Noted Date Comments Clopidogrel Edema face/lips/tongue High 06/03/2020 Other Reaction(s): SWELLING OF FACE/LIPS/TONGUE Oxycodone Edema Other High 12/05/2022 Percodan 11/23/2000 edema Ticagrelor Edema face/lips/tongue High 07/28/2020 Other Reaction(s): SWELLING OF FACE/LIPS/TONGUE documented as of this encounter (statuses as of 05/13/2024) Medications Medication Sig Dispensed Refills Start Date End Date Status Aspirin 81 MG Oral Tablet ChewableIndication s:Coronary artery disease involving [place] heart without angina pectoris, unspecified vessel or [...] GASIndications:Hea rt failure, systolic, due to CAD ([facility]),SOB (shortness of breath),COPD, group B, by GOLD 2017 classification ([facility]),Chronic respiratory failure with hypoxia ([facility]) Portable unit thru [facility] [employer]. 2 LPM continuous. 1 Each 3 Active Additional Information Patient taking differently: Portable unit thru [employer].4 LPM continuous., Reported on 11/22/2023 Ventolin HFA 108 (90 Base) MCG/ACT Inhalation Aerosol SolutionIndication s:Asthma with COPD (chronic obstructive pulmonary disease) ([facility]) Inhale 2 Puffs by mouth every 4 hours as needed for Cough, Wheezing or Shortness of Breath. 54 g 3 3 Active amLODIPine Besylate 2.5 MG Oral Tablet (Norvasc)Indicatio ns:HTN, goal below 130/80 TAKE ONE TABLET BY MOUTH EVERY DAY 90 Tablet 3 3 06/21/20 24 Active Entresto 97-103 MG Oral Tablet (sacubitril-valsar good 97-103 mg per tab)Indications:Co ronary artery disease involving [place] heart without angina pectoris, unspecified vessel or [...] 15 Tablet 3 4 09/26/19 25 Active Nitroglycerin 0.4 MG Sublingual Tablet Sublingual (Nitrostat)Indicat ions:Coronary atherosclerosis,S/ P angioplasty with stent one tab under tongue every 5min x3 as needed for chest pain, max of 3 doses 25 Tablet 1 03/20/202 4 Active Furosemide 20 MG Oral Tablet (Lasix)Indications :Heart failure, systolic, due to CAD (HCC) Take 1 Tablet by mouth once a day on Sunday, Sunday, and Sunday only. 30 Tablet 5 4 Active Pantoprazole Sodium 40 MG Oral Tablet Delayed Release (Protonix)Indicati ons:Gastroesophage al reflux disease without esophagitis TAKE ONE TABLET BY MOUTH TWICE A DAY (MORNING AND BEDTIME) 200 Tablet 1 4 Active hydrOXYzine HCl 25 MG Oral Tablet Take 1 Tablet by mouth 3 times a day as needed for Itching. 180 Tablet 2 4 Active Mirtazapine 45 MG Oral Tablet (Remeron)Indicatio ns:Anxiety state,Moderate episode of recurrent major depressive disorder (HCC) Take 1 Tablet by mouth at bedtime 100 Tablet 3 4 Active Metoprolol Succinate ER 25 MG Oral Tablet Extended Release 24 Hour (toPROL XL)Indications:Par oxysmal atrial fibrillation (HCC) TAKE ONE TABLET BY MOUTH TWICE A DAY 180 Tablet 4 02/20/20 25 Active busPIRone HCl 5 MG Oral Tablet [...] NEEDED FOR NAUSEA 30 Tablet 4 Active HYDROcodone-Acetam inophen 7.5-325 MG Oral TabletIndications: Lumbar degenerative disc disease Take 1 Tablet by mouth every 8 hours as needed for Pain, Severe. 90 Tablet 4 Active HYDROcodone-Acetam inophen 7.5-325 MG Oral TabletIndications: Lumbar degenerative disc disease Take 1 Tablet by mouth every 8 hours as needed for Pain, Severe. 90 Tablet 4 05/11/20 24 Discontinu ed(Refill) Hospital, Clinic, or Other Facility Administered Medication Ordered Dose Route Frequency Start Date End Date Status vitamin b-12 (Cyanocobalamin) inj 1,000 mcgIndications:Vitamin B 12 deficiency 1000 mcg IM [id number] 04/01/2024 03/03/2025 Active documented as of this encounter (statuses as of 05/13/2024) Active Problems Problem Noted Date Diagnosed Date [...] Inhaler Self-Management plan Other/Additional Comments: will contact [facility] Exacerbation plan Chest Xray Paroxysmal atrial [...] statin MEDICATION USE AGREEMENT 05/10/2009 Overview: Sees [facility] in [place] for her pain meds - under contract w/ them since 11/2010 - pls do not refill any pain meds through PCP office. Other chronic pain 05/10/2009 Overview: Chronic CHILDRESS and joint pains since CVA Sees [facility] in [place] for her pain meds - under contract w/ them since 11/2010 - pls do not refill any pain meds through PCP office. OLD MYOCARDIAL INFARCT 03/04/2009 Overview: Modified by [facility] [place] Protocol #5. 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 Study Titile: Genomics Markers for Patients with Cardiovascular Disease Project # [id number] PI: Magdalena Carbone MD Please call [phone] with study related questions CVA 05/02/2006 11/26/2008 Overview: Modified per CVA protocol #8 [place] 03/04/2009 Overview: Modified by [facility] [place] Protocol #5. PURE HYPERCHOLESTEROLEM 07/13 Overview: Per Lipid Taxonomy. Need for prophylactic hormon e replacement therapy (postmenopausal) 07/28/2020 documented as of this encounter (statuses as of 05/13/2024) Immunizations Name Administration Dates Next Due COVID-19 mRNA, LNP-s, No Pre serve, 2-Dose Series ([employer]) 06/20/2021,10/06/2020,09/15/2020 COVID-19, LNP-s, No Preserve , Sadi-sucrose, Ages 12+ (Pfizer) 12/20/2021 COVID-19, MRNA-LNP, 23-24, P F, 30 MCG/0.3 mL, 12 YRS AND ABOVE, IM ([employer]-Comirnaty) [...] No 08/27/2023 Does the household have a presbyterian hospitallar source of income? (Household - for [...] Telephone Encounter - Kayce Pa DO - 05/13/2024 1:38 PM EDTSigned Prescriptions: Disp Refills HYDROcodone-Acetaminophen 7.5-325 MG Oral *90 Tab*0 Sig: Take 1 Tablet by mouth every 8 hours as needed for Pain, Severe.Authorizing Provider: KAYCE PA------- * Telephone Encounter - Kayce Pa DO - 05/13/2024 1:37 PM EDT I have reviewed the patients controlled substance dispensing history in the Prescription Drug Monitoring Program in compliance with the [facility] regulations before prescribing a controlled substance. Last [...] found in Results Review. Medication is due 05/11/2024 * Telephone Encounter - Jami Hope, [facility] - 05/12/2024 4:40 PM EDTPending Prescriptions: Disp Refills HYDROcodone-Acetaminophen 7.5-325 MG Oral *90 Tab*0 Sig: Take 1 Tablet by mouth every 8 hours as needed for Pain, Severe. * Telephone Encounter - Jami Hope [facility] - 05/12/2024 4:39 PM EDT I have reviewed the patients controlled substance dispensing history in the Prescription Drug Monitoring Program in compliance with the [facility] regulations before prescribing a controlled substance. PDMP checked on 05/12/2024. Pending Prescriptions: Disp Refills HYDROcodone-Acetaminophen 7.5-325 MG Oral*90 Tab*0 Sig: Take 1 Tablet by mouth every 8 hours as needed for Pain, Severe. Last Visit: 04/30/2024 (in office), Visit date not found (telemedicine) Next Visit: 05/27/2024 Date medication was last filled: 04/11/24 Date medication is due for refill: 05/11/24 Pharmacy: [id number] Is this request for a controlled [...] Roche, Pharm D, BCACP Clinical Pharmacist [address] [facility] - Med[facility] 05/12/2024, 4:40 PM Ph. [phone] documented in this encounter Plan of Treatment Upcoming Encounters Date Type Department Care Team (Late st Contact Info) Description 05/27/2024 1:00 PM EDT Anticoagulation Family Practice [address] [place] [address] College, Pharmacist [address] [place] [address] 05/27/2024 1:15 PM EDT Nurse Only Family Practice [address] [place] [address] [place], Nurse Fam Prac [address] [place] [address] 08/18/2024 11:20 AM EST Office Visit Family Practice [address] [place] [address] Kayce Pa, 293 [place] [address] Health Maintenance Due Date Last Done Comments DISCUSS TOBACCO CESSATION (REFER TO SMARTSET #1736) 1955 Fecal Occult Blood Test 1998 Sigmoidoscopy [...] D LEVEL ONCE IN A LIFETIME-USE SMARTSET# [id number] Completed 10/30/2023, 04/13/2022, 01/10/2022, Additional history exists [...] Documents on File Type Date Recorded Patient Medical Chief Technician Expl anation Advance Directives and Living Will 06/17/2021 ADVANCE DIRECTIVE / LIVING WILL Power of Lumber Planer 06/17/2021 POWER OF A TTORNEY * Full Code (Latest Code Status on File) Date Activated Date Inactivated Comments 09/21/2008 9:29 AM 09/22/2008 3:05 PM Healthcare Agents on File Name Relationship Healthcare Agent Relationship Communication Fanny Fernandez Other - (no specific identity) Health Care Agent (per Health Care Power of Lumber Planer document) Care Teams Veterinary Inspector Relationship Specialty Start Date End Date Kayce Pa DO [address] [place] [address] PCP - General Internal Medicine 01/24/24 documented as of this encounter
--- OUTSIDE RECORDS SUMMARY | 2024-11-07 07:18 | External Medical Summary | Summary of Care ---
Author Name Unknown Organization [facility] Address [address] [place] [address] Phone [phone] Care Team Providers Care Floor Scrubber Name Role Phone Abdon Pa DO Primary Care Provider Encounter Details Date Type Department Care Team (Late st Contact Info) Description 05/27/2024 1:15 PM EDT Nurse Only Family Practice [address] [phone] College, Nurse [facility] Prac [address] [address] Arrived Allergies Active Allergy Reactions Criticality Noted Date Comments Clopidogrel Edema face/lips/tongue High 06/03/2020 Other Reaction(s): SWELLING OF FACE/LIPS/TONGUE Oxycodone Edema Other High 12/05/2022 Percodan 11/23/2000 edema Ticagrelor Edema face/lips/tongue High 07/28/2020 Other Reaction(s): SWELLING OF FACE/LIPS/TONGUE documented as of this encounter (statuses as of 05/27/2024) Medications Medication Sig Dispensed Refills Start Date End Date Status Aspirin 81 MG Oral Tablet ChewableIndications :Coronary artery disease involving naknek heart without angina pectoris, unspecified vessel or [...] GASIndications:Hear t failure, systolic, due to CAD ([facility]),SOB (shortness of breath),COPD, group B, by GOLD 2017 classification ([facility]),Chronic respiratory failure with hypoxia ([facility]) Portable unit thru [facility]. 2 LPM continuous. 1 Each 05/14/2023 Active Additional Information Patient taking differently: Portable unit thru [facility].4 LPM continuous., Reported on 11/22/2023 Ventolin HFA 108 (90 Base) MCG/ACT Inhalation Aerosol SolutionIndications :Asthma with COPD (chronic obstructive pulmonary disease) ([facility]) Inhale 2 Puffs by mouth every 4 hours as needed for Cough, Wheezing or Shortness of Breath. 54 g 3 05/15/2023 Active Entresto 97-103 MG Oral Tablet (sacubitril-valsart an 97-103 mg per tab)Indications:Cor onary artery disease involving nak[place] heart without angina pectoris, unspecified vessel or [...] 15 Tablet 3 09/27/2023 09/26/19 25 Active Nitroglycerin 0.4 MG Sublingual Tablet Sublingual (Nitrostat)Indicati ons:Coronary atherosclerosis,S/P angioplasty with stent one tab under tongue every 5min x3 as needed for chest pain, max of 3 doses 25 Tablet 1 10/31/2023 Active Furosemide 20 MG Oral Tablet (Lasix)Indications: Heart failure, systolic, due to CAD ([facility]) Take 1 Tablet by mouth once a [...] mouth daily. 100 Tablet 3 05/23/2024 Active Hospital, Clinic, or Other Facility Administered Medication Ordered Dose Route Frequency Start Date End Date Status vitamin b-12 (Cyanocobalamin) inj 1,000 mcgIndications:Vitamin B 12 deficiency 1000 mcg IM [id number] 04/01/2024 03/03/2025 Active documented as of this encounter (statuses as of 05/27/2024) Active Problems Problem Noted Date Diagnosed Date [...] Inhaler Self-Management plan Other/Additional Comments: will contact [facility] Exacerbation plan Chest Xray Paroxysmal atrial [...] statin MEDICATION USE AGREEMENT 05/10/2009 Overview: Sees [facility] in [place] for her pain meds - under contract w/ them since 11/2010 - pls do not refill any pain meds through PCP office. Other chronic pain 05/10/2009 Overview: Chronic CHILDRESS and joint pains since CVA Sees [facility] in [place] for her pain meds - under contract w/ them since 11/2010 - pls do not refill any pain meds through PCP office. OLD MYOCARDIAL INFARCT 03/04/2009 Overview: Modified by [facility] [place] Protocol #5. Last Assessment & Plan: No angina Continue above regimen S/P angioplasty with stent 09/21/2008 snf current use of 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 0 05/02/2006 Overview: ICD-10 update of inactive term Anticoagulation management encounter 05/02/2006 ADVANCE DIRECTIVE INFORMATION 12/13/2004 Overview: Brochure given to pt. 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 Study Titile: Genomics Markers for Patients with Cardiovascular Disease Project # [id number] PI: Magdalena Carbone MD Please call [phone] with study related questions CVA 05/02/2006 11/26/2008 Overview: Modified per CVA protocol #8 Acute [place] 03/04/2009 Overview: Modified by [facility] [place] Protocol #5. PURE HYPERCHOLESTEROLEM 07/13 Overview: Per Lipid Taxonomy. Need for prophylactic hormon e replacement therapy (postmenopausal) 07/28/2020 documented as of this encounter (statuses as of 05/27/2024) Immunizations Name Administration Dates Next Due COVID-19 mRNA, LNP-s, No Pre serve, 2-Dose Series ([employer]) 06/20/2021,10/06/2020,09/15/2020 COVID-19, LNP-s, No Preserve , Sadi-sucrose, Ages 12+ (Pfizer) 12/20/2021 COVID-19, MRNA-LNP, 23-24, P F, 30 MCG/0.3 mL, 12 YRS AND ABOVE, IM ([employer]-Comirnaty) 06/14/2023 Covid-19, Mrna, Lnp-s, Pf, B ivalent, 30 Mcg, IM, 12 yrs and above ([employer]) 06/06/2022 Pneumococcal Conjugate Vacc, 13 Valent (Prevnar) [...] 1:00 PM EST Anticoagulation Family Practice 65 [facility] 293 [facility] [place] [phone] College, Pharmacist [address] [place] [address] 08/18/2024 11:20 AM EST Office Visit Family Practice 65 [facility] 293 [facility] [place] [phone] Abdon Pa, DO [address] [place] [address] 10/13/2024 3:00 PM EST Office Visit Cardiology, [facility] [address] [place] [address] Elton Lee PA-C [address] [place] [address] Health Maintenance Due Date Last Done Comments DISCUSS TOBACCO CESSATION (REFER TO SMARTSET #6234) 1955 Fecal Occult Blood Test 1998 Sigmoidoscopy [...] D LEVEL ONCE IN A LIFETIME-USE SMARTSET# 37805 Completed 10/30/2023, 04/13/2022, 01/10/2022, Additional history exists [...] Not on filedocumented as of this encounter Administered Medications Active Administered Medications - up to 3 most recent administrations Medication Order MAR Action Action Date Dose Rate Site vitamin b-12 (Cyanocobalamin) inj 1,000 mcg 1,000 mcg, Intramuscular, [id number], First dose on Sun04/01/24 at 1345, Last dose on Sun02/03/25 at 1345, For 12 doses Given 05/27/2024 1:33 PM EDT 1,000 mcg Deltoid Left Upper Given 04/30/2024 10:05 AM EDT 1,000 mcg A rm Right Upper Given 04/01/2024 1:19 PM EDT 1,000 mcg De ltoid Left Upper documented in this encounter Advance Directives Documents on File Type Date Recorded 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 Advance Directives and Living Will 06/17/2021 ADVANCE DIRECTIVE / LIVING WILL Power of Au Pair 06/17/2021 POWER OF A TTORNEY * Full Code (Latest Code Status on File) Date Activated Date Inactivated Comments 09/21/2008 9:29 AM 09/22/2008 3:05 PM Healthcare Agents on File Name Relationship Healthcare Agent Relationship Communication Fanny Fernandez Other - (no specific identity) Health Care Agent (per Health Care Power of Au Pair document) Care Teams Floor Scrubber Relationship Specialty Start Date End Date Abdon Pa DO [address] [place] [address] PCP - General Internal Medicine 01/24/24 documented as of this encounter
--- OUTSIDE RECORDS SUMMARY | 2024-11-07 07:18 | External Medical Summary | Summary of Care ---
Author Name Unknown Organization [facility] Address [address] [place] [address] Phone [phone] Care Team Providers Care Rn Palliative Care Name Role Phone Abdon Pa DO Primary Care Provider Reason for Visit * Reason Onset Date Comments Medication Refill Status Check 05/20/2024 Encounter Details Date Type Department Care Team (Late st Contact Info) Description 05/20/2024 Refill Cardiology, [facility] [address] [place] [address] Ganesh Colin PA-C [address] [facility] [place] [address] Paroxysmal atrial fibrillation (HCC) Allergies Active Allergy Reactions Criticality Noted Date Comments Clopidogrel Edema face/lips/tongue High 06/03/2020 Other Reaction(s): SWELLING OF FACE/LIPS/TONGUE Oxycodone Edema Other High 12/05/2022 Percodan 11/23/2000 edema Ticagrelor Edema face/lips/tongue High 07/28/2020 Other Reaction(s): SWELLING OF FACE/LIPS/TONGUE documented as of this encounter (statuses as of 05/22/2024) Medications Medication Sig Dispensed Refills Start Date End Date Status Aspirin 81 MG Oral Tablet ChewableIndication s:Coronary artery disease involving [place] heart without angina pectoris, unspecified vessel or [...] GASIndications:Hea rt failure, systolic, due to CAD ([facility]),SOB (shortness of breath),COPD, group B, by GOLD 2017 classification ([facility]),Chronic respiratory failure with hypoxia ([facility]) Portable unit thru [facility]. 2 LPM continuous. 1 Each 3 Active Additional Information Patient taking differently: Portable unit thru [facility].4 LPM continuous., Reported on 11/22/2023 Ventolin HFA 108 (90 Base) MCG/ACT Inhalation Aerosol SolutionIndication s:Asthma with COPD (chronic obstructive pulmonary disease) ([facility]) Inhale 2 Puffs by mouth every 4 hours as needed for Cough, Wheezing or Shortness of Breath. 54 g 3 3 Active amLODIPine Besylate 2.5 MG Oral Tablet (Norvasc)Indicatio ns:HTN, goal below 130/80 TAKE ONE TABLET BY MOUTH EVERY DAY 90 Tablet 3 3 06/21/20 24 Active Entresto 97-103 MG Oral Tablet (sacubitril-valsar good 97-103 mg per tab)Indications:Co ronary artery disease involving alt[place] heart without angina pectoris, unspecified vessel or [...] max of 3 doses 25 Tablet 1 4 Active Furosemide 20 MG Oral Tablet [...] for Pain, Severe. 90 Tablet 4 Active Pantoprazole Sodium 40 MG [...] DAY 180 Tablet 4 05/22/20 25 Active Metoprolol Succinate ER 25 MG Oral Tablet Extended Release 24 Hour (toPROL XL)Indications:Par oxysmal atrial fibrillation (HCC) TAKE ONE TABLET BY MOUTH TWICE A DAY 180 Tablet 4 05/20/20 24 Discontinu ed(Refill) Hospital, Clinic, or Other Facility Administered Medication Ordered Dose Route Frequency Start Date End Date Status vitamin b-12 (Cyanocobalamin) inj 1,000 mcgIndications:Vitamin B 12 deficiency 1000 mcg IM [id number] 04/01/2024 03/03/2025 Active documented as of this encounter (statuses as of 05/22/2024) Active Problems Problem Noted Date Diagnosed Date [...] Self-Management plan Other/Additional Comments: will contact [facility] Exacerbation plan Chest Xray Paroxysmal atrial [...] statin MEDICATION USE AGREEMENT 05/10/2009 Overview: Sees [facility] in [place] for her pain meds - under contract w/ them since 11/2010 - pls do not refill any pain meds through PCP office. Other chronic pain 05/10/2009 Overview: Chronic CHILDRESS and joint pains since CVA Sees [facility] in [place] for her pain meds - under contract w/ them since 11/2010 - pls do not refill any pain meds through PCP office. OLD MYOCARDIAL INFARCT 03/04/2009 Overview: Modified by [facility] [place] Protocol #5. 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 Study Titile: Genomics Markers for Patients with Cardiovascular Disease Project # [id number] PI: Magdalena Carbone MD Please call [phone] with study related questions CVA 05/02/2006 11/26/2008 Overview: Modified per CVA protocol #8 Acute [place] 03/04/2009 Overview: Modified by [facility] [place] Protocol #5. PURE HYPERCHOLESTEROLEM 07/13 Overview: Per Lipid Taxonomy. Need for prophylactic hormon e replacement therapy (postmenopausal) 07/28/2020 documented as of this encounter (statuses as of 05/22/2024) Immunizations Name Administration Dates Next Due COVID-19 mRNA, LNP-s, No Pre serve, 2-Dose Series ([employer]) 06/20/2021,10/06/2020,09/15/2020 COVID-19, LNP-s, No Preserve , Sadi-sucrose, Ages 12+ (Pfizer) 12/20/2021 COVID-19, MRNA-LNP, 23-24, P F, 30 MCG/0.3 mL, 12 YRS AND ABOVE, IM ([employer]-Comirnaty) 06/14/2023 Covid-19, Mrna, Lnp-s, Pf, B ivalent, [...] encounter Miscellaneous Notes * Telephone Encounter - Ganesh Colin PA-C - 05/22/2024 12:46 PM EDTSigned Prescriptions: Disp Refills Metoprolol Succinate ER 25 MG Oral Tablet *180 Ta*0 Sig: TAKE ONE TABLET BY MOUTH TWICE A DAY Authorizing Provider: GANESH COLIN * Telephone Encounter - Ganesh Colin PA-C - 05/22/2024 12:46 PM EDTSigned Prescriptions: Disp Refills Metoprolol Succinate ER 25 MG Oral Tablet *180 Ta*0 Sig: TAKE ONE TABLET BY MOUTH TWICE A DAY Authorizing Provider: GANESH COLIN * Telephone Encounter - Jess Hernandez OSA - 05/22/2024 11:19 AM EDT Person calling: Malia Relationship to patient: Self Phone/Fax to return call: [phone] Reason for call(brief): Meds/ Appointment Pharmacy: [facility] Provider Name:Jesus Detailed message to office:Pt is requesting that she gets enough refills until her next appointment. Pt only wants to see Jesus in [place] during the afternoon... Pt is scheduled with the next fitting appointment and is placed on the fast past list. Please advise * Telephone Encounter - Clary Velasco CPhT - 05/22/2024 10:58 AM EDTPending Prescriptions: Disp Refills Metoprolol Succinate ER 25 MG Oral Tablet *180 Ta*0 Sig: TAKE ONE TABLET BY MOUTH TWICE A DAY * Telephone Encounter - Clary Velasco CPhT - 05/22/2024 10:57 AM EDT Received message from [facility] regarding patient needing an appointment. Call Placed, Left message on voicemail to call back and schedule appointment. Thank you, Clary Velasco CPhT Group Insurance Specialist [facility] 05/22/2024,10:57 AM * Telephone Encounter - Francisco Bass [facility] - 05/21/2024 3:03 PM EDTPending Prescriptions: Disp Refills Metoprolol Succinate ER 25 MG Oral Tablet *180 Ta*0 Sig: TAKE ONE TABLET BY MOUTH TWICE A DAY * [facility] - [facility] 3:02 PM EDT Unable to authorize medication refills for pended medication(s) at this time. Part of the protocol criteria used for refill authorization was not satisfied. Per refill protocol patient should have office visit on file within past year. Please contact patient to schedule office visit with CARDIOLOGY. Last Visit: 08/23/2022 (in office), Visit date not found (telemedicine) Next Visit: Visit date not found After contacting patient, please forward request to Ganesh Colin PA-C. Thank you, Francisco Bass, PharmD Clinical Pharmacist [facility] ([facility]) [phone] 05/21/2024, 3:02 PM * Telephone Encounter - Shania Chambers, [facility] - 05/21/2024 10:16 AM EDT Did you pend patient's preferred pharmacy and medication before forwarding?yes Pharmacy: [facility] Pending Prescriptions: Disp Refills Metoprolol Succinate ER 25 MG Oral Tablet*180 Ta*0 Sig: TAKE ONE TABLET BY MOUTH TWICE A DAY Last Visit: 08/23/2022 (in office), Visit date not found (telemedicine) Next Visit: Visit date not found If no future appointments scheduled, and last appointment is greater than a year ago, please schedule patient for a follow-up appointment Last date the medication was ordered: 02/20/24 Is this request for a controlled substance?No [...] 1:00 PM EDT Anticoagulation Family Practice 65 [facility] 293 [facility], [place] [phone] College, Pharmacist [address], [place] [address] 05/27/2024 1:15 PM EDT Nurse Only Family Practice 65 [facility] [address] [facility], [place] [phone] College, Nurse Fam Prac [address], [place] [address] 08/18/2024 11:20 AM EST Office Visit Family Practice 65 [facility] [address] [facility], [place] [phone] Abdon Pa, 293 [facility], [place] [address] 10/13/2024 3:00 PM EST Office Visit Cardiology, [facility] 132 [facility] [place] [address] Ganesh Colin PA-C [address] [place] [address] Health Maintenance Due Date Last Done Comments DISCUSS TOBACCO CESSATION (REFER TO SMARTSET #9263) 1955 Fecal Occult Blood Test 1998 Sigmoidoscopy [...] D LEVEL ONCE IN A LIFETIME-USE SMARTSET# [id number] Completed 10/30/2023, 04/13/2022, 01/10/2022, Additional history exists Lung Cancer Screening Completed 11/12/2023, 09/28/2 023 Influenza Vaccine (FLU shot) Completed 04/30/2024, [...] as of this encounter Visit Diagnoses Diagnosis Paroxysmal atrial fibrillation (HCC) Atrial fibrillation documented in this encounter Advance Directives Documents on File Type Date Recorded 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 Advance Directives and Living Will 06/17/2021 ADVANCE DIRECTIVE / LIVING WILL Power of Escalator Operator 06/17/2021 POWER OF A TTORNEY * Full Code (Latest Code Status on File) Date Activated Date Inactivated Comments 09/21/2008 9:29 AM 09/22/2008 3:05 PM Healthcare Agents on File Name Relationship Healthcare Agent Relationship Communication Fanny Fernandez Other - (no specific identity) Health Care Agent (per Health Care Power of Escalator Operator document) Care Teams Rn Palliative Care Relationship Specialty Start Date End Date Abdon Pa DO [address] [facility] [place] [address] PCP - General Internal Medicine 01/24/24 documented as of this encounter
--- OUTSIDE RECORDS SUMMARY | 2024-11-07 07:18 | External Medical Summary ---
Author Name Unknown Address Unknown Organization : Laboratory Report Ordering Provider Test Date Status ROGELIO VALVERDE 05/27/2024 13:11:35 Final Therapeutic ranges for non-o perative patients:
Prophylaxsis/treatment of DVT: (Range:2.0-3.0)
Treatment of pulmonary embolism:(Range:2.0-3.0)
Prevention of systemic embolism from:
-tissue heart valves
-acute myocardial infarction
-valvular heart disease
-atrial fibrillation
(Range: 2.0-3.0)
Mechanical prosthetic valves: (Range: 2.5-3.5) Observation Date Value Abnormality Reference (Units ) Status INR in Capillary blood by Coagulation assay 05/27/2024 13:11:35 2.3 (INR) Final Performing Location
--- OUTSIDE RECORDS SUMMARY | 2024-11-07 07:18 | External Medical Summary | Summary of Care ---
Author Name Unknown Organization [facility] Address [address] [place] [address] Phone [phone] Care Team Providers Care Process Manufacturing Engineer Name Role Phone Abdon Pa DO Primary Care Provider [phone] Reason for Visit * Reason Comments Dosage Adjustment In Person (Anticoag Cl inic) Encounter Details Date Type Department Care Team (Late st Contact Info) Description 05/27/2024 1:00 PM EDT Anticoagulation Family Practice 65 [facility] [address] [place] [address] College, Pharmacist [address] [address] Anticoagulation management encounter*; Cerebrovascular disease, arteriosclerotic, post-stroke; half-way current use of 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 Allergies Active [...] Oral Tablet ChewableIndications :Coronary artery disease involving [place] heart without angina pectoris, unspecified vessel or [...] GASIndications:Hear t failure, systolic, due to CAD ([facility]),SOB (shortness of breath),COPD, group B, by GOLD 2017 classification ([facility]),Chronic respiratory failure with hypoxia ([facility]) Portable unit thru [facility]. 2 LPM continuous. 1 Each 05/14/2023 Active Additional Information Patient taking differently: Portable unit thru [facility].4 LPM continuous., Reported on 11/22/2023 Ventolin HFA 108 (90 Base) MCG/ACT Inhalation Aerosol SolutionIndications :Asthma with COPD (chronic obstructive pulmonary disease) ([facility]) Inhale 2 Puffs by mouth every 4 hours as needed for Cough, Wheezing or Shortness of Breath. 54 g 3 05/15/2023 Active Entresto 97-103 MG Oral Tablet (sacubitril-valsart an 97-103 mg per tab)Indications:Cor onary artery disease involving [place] heart without angina pectoris, unspecified vessel or [...] (Lasix)Indications: Heart failure, systolic, due to CAD ([facility]) Take 1 Tablet by mouth [...] mcgIndications:Vitamin B 12 deficiency 1000 mcg IM [id number] 04/01/2024 03/03/2025 Active documented as of this [...] plan Other/Additional Comments: will contact [facility] Exacerbation plan Chest Xray Paroxysmal atrial [...] statin MEDICATION USE AGREEMENT 05/10/2009 Overview: Sees [facility] in [place] for her pain meds - under contract w/ them since 11/2010 - pls do not refill any pain meds through PCP office. Other chronic pain 05/10/2009 Overview: Chronic CHILDRESS and joint pains since CVA Sees [facility] in [place] for her pain meds - under contract w/ them since 11/2010 - pls do not refill any pain meds through PCP office. OLD MYOCARDIAL INFARCT 03/04/2009 Overview: Modified by Acute AR Protocol #5. 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 Coronary artery disease invo lving [place] heart without angina pectoris Moderate episode of [...] for Patients with Cardiovascular Disease Project # [id number] PI: Magdalena Carbone MD Please call [phone] with study related questions GENOMICS CARDIO RESEARCH OTHER*[id number] 09/21/2008 09/19/2016 Overview: Renamed Per Clinical Trials Billing Project. Study Titile: Genomics Markers for Patients with Cardiovascular Disease Project # [id number] PI: Magdalena Carbone MD Please call [phone] with study related questions CVA 05/02/2006 11/26/2008 Overview: Modified per CVA protocol #8 Acute AR 03/04/2009 Overview: Modified by Acute AR Protocol #5. PURE HYPERCHOLESTEROLEM 07/13 Overview: Per Lipid Taxonomy. Need for prophylactic hormon e replacement therapy (postmenopausal) 07/28/2020 documented as of this encounter (statuses as of 05/27/2024) Immunizations Name Administration Dates Next Due COVID-19 mRNA, LNP-s, No Pre serve, 2-Dose Series ([employer]) 06/20/2021,10/06/2020,09/15/2020 COVID-19, LNP-s, No Preserve , Sadi-sucrose, Ages 12+ (Pfizer) 12/20/2021 COVID-19, MRNA-LNP, 23-24, P F, 30 MCG/0.3 mL, 12 YRS AND ABOVE, IM ([facility]) 06/14/2023 Covid-19, Mrna, Lnp-s, Pf, B ivalent, [...] No 08/27/2023 Does the household have a [facility] source of income? (Household - for [...] Progress Notes * Jami Hope RPh - 05/27/2024 4:34 PM EDT Agree with plan as documented. Jami Roche, Pharm D, BCACP Clinical Pharmacist [facility] 05/27/2024, 4:34 PM documented in this encounter Plan of Treatment Upcoming Encounters Date Type Department Care Team (Late st Contact Info) Description 06/24/2024 1:00 PM [facility] [address] [place] [address] [place] [address] College, Pharmacist 65 [facility] 293 [facility] [place] [address] 08/18/2024 11:20 AM EST Office Visit Family Practice 65 [facility] [address] [place] [address] Abdon Pa DO [address] [facility], [place] [address] 10/13/2024 3:00 PM EST Office Visit Cardiology, [facility] [address] [place] [address] Elton Lee PA-C [address] [place] [address] Health Maintenance Due Date Last Done Comments DISCUSS TOBACCO CESSATION (REFER TO SMARTSET #3292) 1953 Fecal Occult Blood Test 1998 Sigmoidoscopy [...] D LEVEL ONCE IN A LIFETIME-USE SMARTSET# [id number] Completed 10/30/2023, 04/13/2022, 01/10/2022, Additional history exists [...] Comments INR FINGERSTICK, POINT OF CARE STAT 05/27/2024 1:11 PM EDT Cerebrovascular disease, arteriosclerotic, post-stroke Anticoagulation management encounter 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 documented in this encounter Results * INR FINGERSTICK, POINT OF CARE (05/27/2024 1:11 PM EDT) Fingerstick INR 2.3 INR 1:56 PM EDT [facility]-21 Blood 05/27/2024 1:11 PM EDT 05/27/2024 1:56 PM EDT Narrative [facility] 56-21 - 05/27/2024 1:56 PM EDT Therapeutic ranges for non-operative patients: Prophylaxsis/treatment of DVT: (Range:2.0-3.0) Treatment of pulmonary embolism:(Range:2.0-3.0) Prevention of systemic embolism from: -tissue heart valves -acute myocardial infarction -valvular heart disease -atrial fibrillation (Range: 2.0-3.0) Mechanical prosthetic valves: (Range: 2.5-3.5) Jami Johnson Melchor [facility] PO INT OF CARE TEST DOCKED DEVICE UNSOLICITED RESULTS [facility] 56-21 [address] [place] [address], [facility] documented in this encounter Visit Diagnoses Diagnosis Anticoagulation management encounter- Primary Encounter for therapeutic drug monitoring Cerebrovascular disease, arteriosclerotic, post-stroke Cerebral atherosclerosis half-way current use of 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 documented in this encounter Advance Directives Documents on File Type Date Recorded Patient Plant Control Aide Expl anation Advance Directives and Living Will 06/17/2021 ADVANCE DIRECTIVE / LIVING WILL Power of Last Marker 06/17/2021 POWER OF A TTORNEY * Full Code (Latest Code Status on File) Date Activated Date Inactivated Comments 09/21/2008 9:29 AM 09/22/2008 3:05 PM Healthcare Agents on File Name Relationship Healthcare Agent Relationship Communication Fanny Fernandez Other - (no specific identity) Health Care Agent (per Health Care Power of Last Marker document) Care Teams Process Manufacturing Engineer Relationship Specialty Start Date End Date Abdon Pa DO [address] [place] [address] PCP - General Internal Medicine 01/24/24 documented as of this encounter
--- OUTSIDE RECORDS SUMMARY | 2024-11-07 07:18 | External Medical Summary | Summary of Care ---
Author Name Unknown Organization [facility] Address [address] [place] [address] Phone [phone] Care Team Providers Care Tack Cutter Name Role Phone Kayce Pa DO Primary Care Provider [phone] Reason for Visit * Reason Comments Medication Refill Encounter Details Date Type Department Care Team (Late st Contact Info) Description 05/17/2024 Refill Family Practice [address] [place] [address] [place] [phone] Kayce Pa DO [address] [place], [place] [phone] Gastroesophageal reflux disease without esophagitis Allergies Active Allergy Reactions Criticality Noted Date Comments Clopidogrel Edema face/lips/tongue High 06/03/2020 Other Reaction(s): SWELLING OF FACE/LIPS/TONGUE Oxycodone Edema Other High 12/05/2022 Percodan 11/23/2000 edema Ticagrelor Edema face/lips/tongue High 07/28/2020 Other Reaction(s): SWELLING OF FACE/LIPS/TONGUE documented as of this encounter (statuses as of 05/17/2024) Medications Medication Sig Dispensed Refills Start Date End Date Status Aspirin 81 MG Oral Tablet ChewableIndication s:Coronary artery disease involving [place] heart without angina pectoris, unspecified vessel or lesion type Take 1 Tablet by mouth daily. with food. 100 Tablet 5 1 Active Vitamin D3 50 MCG (1999) Oral Capsule Take 1 Capsule by mouth in the morning. 30 Capsule 5 2 Active Calcium 500 MG Oral Tablet Take 1 Tablet by mouth in the morning. With food.. 100 Tablet 11 2 Active oxygen IN GASIndications:Hea rt failure, systolic, due to CAD ([facility]),SOB (shortness of breath),COPD, group B, by GOLD 2017 classification ([facility]),Chronic respiratory failure with hypoxia ([facility]) Portable unit thru [facility]. 2 LPM continuous. 1 Each 3 Active Additional Information Patient taking differently: Portable unit thru [facility].4 LPM continuous., Reported on 11/22/2023 Ventolin HFA 108 (90 Base) MCG/ACT Inhalation Aerosol SolutionIndication s:Asthma with COPD (chronic obstructive pulmonary disease) ([facility] [...] mg per tab)Indications:Co ronary artery disease involving [place] heart without [...] A DAY (MORNING AND BEDTIME) 200 Tablet 3 4 Active Pantoprazole Sodium 40 MG Oral Tablet Delayed Release (Protonix)Indicati ons:Gastroesophage al reflux disease without esophagitis TAKE ONE TABLET BY MOUTH TWICE A DAY (MORNING AND BEDTIME) 200 Tablet 1 4 05/17/20 24 Discontinu ed(Refill) Hospital, Clinic, or Other Facility Administered Medication Ordered Dose Route Frequency Start Date End Date Status vitamin b-12 (Cyanocobalamin) inj 1,000 mcgIndications:Vitamin B 12 deficiency 1000 mcg IM [id number] 04/01/2024 03/03/2025 Active documented as of this encounter (statuses as of 05/17/2024) Active Problems Problem Noted Date Diagnosed Date [...] Inhaler Self-Management plan Other/Additional Comments: will contact [facility] Exacerbation plan Chest Xray Paroxysmal [...] statin MEDICATION USE AGREEMENT 05/10/2009 Overview: Sees [facility] in [place] for her pain meds - under contract w/ them since 11/2010 - pls do not refill any pain meds through PCP office. Other chronic pain 05/10/2009 Overview: Chronic CHILDRESS and joint pains since CVA Sees [facility] in [place] for her pain meds - under contract w/ them since 11/2010 - pls do not refill any pain meds through PCP office. OLD MYOCARDIAL INFARCT 03/04/2009 Overview: Modified by Acute VT Protocol #5. 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 Study Titile: Genomics Markers for Patients with Cardiovascular Disease Project # [id number] PI: Magdalena Carbone MD Please call [phone] with study related questions CVA 05/02/2006 11/26/2008 Overview: Modified per CVA protocol #8 Acute VT 03/04/2009 Overview: Modified by Acute VT Protocol #5. PURE HYPERCHOLESTEROLEM 07/13 Overview: Per Lipid Taxonomy. Need for prophylactic hormon e replacement therapy (postmenopausal) 07/28/2020 documented as of this encounter (statuses as of 05/17/2024) Immunizations Name Administration Dates Next Due COVID-19 mRNA, LNP-s, No Pre serve, 2-Dose Series ([employer]) 06/20/2021,10/06/2020,09/15/2020 COVID-19, LNP-s, No Preserve , Sadi-sucrose, [...] No 08/27/2023 Does the household have a [facility] source of income? (Household - for [...] Miscellaneous Notes * Telephone Encounter - Kayce Porter [facility] - 05/17/2024 9:38 AM EDTSigned Prescriptions: Disp Refills Pantoprazole Sodium 40 MG Oral Tablet Abby*200 Ta*3 Sig: TAKE ONE TABLET BY MOUTH TWICE A DAY (MORNING AND BEDTIME)Authorizing Provider: KAYCE PA [facility] User: KAYCE PORTER documented in this encounter Plan of Treatment Upcoming Encounters Date Type Department Care Team (Late st Contact Info) Description 05/27/2024 1:00 PM EDT Anticoagulation Family Practice 65 [facility] 293 [facility] [place] [phone] College, Pharmacist [address] [place] [address] 05/27/2024 1:15 PM EDT Nurse Only Family Practice 65 [facility] [address] [facility] [place] [phone] College, Nurse Fam Prac [address] [place] [address] 08/18/2024 11:20 AM EST Office Visit Family Practice 65 [facility] [address] [facility] [place] [phone] Kayce Pa, DO 293 [place] [address] Health Maintenance Due Date Last Done Comments DISCUSS TOBACCO CESSATION (REFER TO SMARTSET #5642) 1955 Fecal Occult Blood Test 1998 Sigmoidoscopy [...] Additional history exists Albumin/Creatinine Ratio 10/30/2026 10/31/2023, 1012/2021 DTap/Tdap Vaccines (3 - Td or Tdap) 01/11/2032 01/10/2022, 10/15/2007 Alpha-1 Antitrypsin Completed 08/19/2021 Pneumococcal Vaccine: 65+ Years Completed 10/19/2021, 05/10/2020, 04/22/2019, Additional history exists Zoster Vaccines Completed 01/10/2022, 10/19/2021 COVID-19 Vaccine Discontinued 06/14/2023, , 12/20/2021, Additional history exists VITAMIN D LEVEL ONCE IN A LIFETIME-USE SMARTSET# [id number] Completed 10/30/2023, 04/13/2022, 01/10/2022, Additional history exists [...] as of this encounter Visit Diagnoses Diagnosis Gastroesophageal reflux disease without esophagitis Esophageal reflux documented in this encounter Advance Directives Documents on File Type Date Recorded Patient Intake Clerk Expl anation Advance Directives and Living Will 06/17/2021 ADVANCE DIRECTIVE / LIVING WILL Power of Logistics Assistant 06/17/2021 POWER OF A TTORNEY * Full Code (Latest Code Status on File) Date Activated Date Inactivated Comments 09/21/2008 9:29 AM 09/22/2008 3:05 PM Healthcare Agents on File Name Relationship Healthcare Agent Relationship Communication Fanny Fernandez Other - (no specific identity) Health Care Agent (per Health Care Power of Logistics Assistant document) Care Teams Tack Cutter Relationship Specialty Start Date End Date Kayce Pa DO [address] [place] [address] PCP - General Internal Medicine 01/24/24 documented as of this encounter
[2024-11-07 07:21] LABS: BUN Creatinine Ratio 9.6 (10-20); Calcium 8.3 mg/dl (8.6-10.3); Creatinine Clr Calc Pharmacy 41.5 ml/min; Magnesium 1.6 mg/dl (1.7-2.4); Potassium 3.9 mmol/L (3.5-5.1)
[2024-11-07 08:13] VITALS: RESP 20; O2SAT 94
[2024-11-07] MEDS: PERFLUTREN LIPID MICROSPHERE (DEFINITY) IV ONE (08:38)
[2024-11-07] MEDS: HYDROCODONE/ACETAMINOPHEN 7.5/325MG TAB PO PRN (09:02)
[2024-11-07] MEDS: MAGNESIUM SULFATE / D5W 1 GM/100 ML BAG IV ONE (09:02)
[2024-11-07] MEDS: CHOLECALCIFEROL 25 MCG (1000 UNITS) TAB PO SCH (09:05)
[2024-11-07] MEDS: amLODIPine BESYLATE 5 MG TAB PO SCH (09:05)
[2024-11-07] MEDS: FUROSEMIDE 40 MG TAB PO SCH (09:06)
[2024-11-07] MEDS: ATORVASTATIN 40 MG TAB PO SCH (09:06)
[2024-11-07] MEDS: ASPIRIN 81 MG ECTAB PO SCH (09:06)
[2024-11-07 11:39] VITALS: BP 93/63; TEMP 97.7
[2024-11-07 12:39] VITALS: PULSE 69
--- NOTE | 2024-11-07 13:05 | Discharge Summary ---
Discharge Summary Date of Service November 07, 2024 Principal Dx & Hospital Course #1 = Principal Diagnosis (1) Chest pain: (2) CAD (coronary artery disease): (3) History of aortic valve replacement with bioprosthetic valve: (4) Atrial fibrillation: (5) CHF (congestive heart failure): (6) HTN (hypertension): (7) HLD (hyperlipidemia): (8) COPD (chronic obstructive pulmonary disease): (9) Depression: (10) Anxiety disorder: (11) Osteoporosis: (12) GERD (gastroesophageal reflux disease): (13) History of CVA (cerebrovascular accident): (14) Expressive aphasia: (15) Diffuse myofascial pain syndrome: Plan 68 year old female with PMH significant for CAD s/p LAD stent, CABGx1, s/p bioprosthetic AVR, paroxysmal Afib, HFrEF, HTN, HLD, CKDIII, COPD, chronic hypoxemic respiratory failure, depression/anxiety, osteoporosis, GERD, chronic pain who was admitted on 11/06 for chest pain Chest pain CAD s/p stent, CABGx1, s/p bioprosthetic AVR Patient with intermittent heavy sternal chest pain x24 hours at rest and exertion EMS reported EKG with ST elevation in V4, V5, V6, V3, possibly II and III and run of V tach Patient hemodynamically stable here EKG here NSR without ST elevation, troponin negative, labs unremarkable, CXR negative, echocardiogram unchanged from previous in 2022 Continued to have intermittent heavy chest pain but mostly when patient was feeling overwhelmed or overstimulated Workup reassuring against cardiac etiology and advised patient to discuss anxiety further with PCP as this could be contributing to her chest pain Paroxysmal Afib Continue warfarin and metoprolol HFrEF Continue Entresto, furosemide, metoprolol HTN Continue Entresto and amlodipine HLD Continue aspirin and atorvastatin CKDIII BUN 8 and creat 1.24 (baseline per outside records) COPD, chronic hypoxemic respiratory failure Continue oxygen and inhalers Depression/anxiety Continue desvenlafaxine and buspar Osteoporosis Continue calcium and vitamin D and alendronate GERD Continue pantoprazole and famotidine Chronic pain Continue hydrocodone-acetaminophen Patient seen in collaboration with Dr Jiménez. Please see addendum. Notes For Next Care Provider 68 year old female with extensive PMH admitted to the hospital for chest pain. Workup was reassuring against cardiac etiology as detailed above. Patient continued to have intermittent chest pain while admitted, but noted that it occurred when she was feeling overwhelmed or overstimulated. Advise further discussion/management of anxiety and possible medication adjustments or psych/therapy consult. Medication Changes From Visit None. Please resume all home medications as prescribed. Admission HPI Per Admitting Provider 68 year old female with PMH significant for CAD s/p LAD stent, CABGx1, s/p biopr osthetic AVR, paroxysmal Afib, HFrEF, HTN, HLD, CKDIII, COPD, chronic hypoxemic respiratory failure, history of left MCA CVA (2004), depression/anxiety, osteoporosis, GERD who presented to the ED on 11/06 with chest pain. She reports that she has been having sternal chest pain that she describes as heaviness like something is sitting on her chest for the last 24 hours. The pain is intermittent and does not radiate. It occurs at rest and with exertion. She took two doses of nitro today which helped. She states she believed it was acid reflux related and not cardiac, however, she notes that she just does not feel right. She also felt nauseous but that has since resolved. She denies any change in her baseline SOB. She denies recent illness, fevers, chills, cough, cold symptoms, abdominal pain, edema, calf tenderness. She is taking her medications as prescribed. She notes it has been over a year since she has seen Cardiology. She is here with her sister, whom she lives with. Her sister shared that patient had similar chest pain approximately two weeks ago for which she took three doses of nitro. Her sister was prepared to call an ambulance for the patient when her chest pain resolved. Her sister encouraged her to come to the ED today. Patient reports tobacco use and states that she has been smoking more cigarettes than she should for the last 6 months. She is aware of the risk with her oxygen therapy. She denies alcohol or drug use. She ambulates without any assistive devices. Admission Exam Per Admitting Provider VITALS: Reviewed and VSS. On 2L NC per baseline. GEN: Well-developed, female, NAD. PSYCH: Good Judgment. AOx3. Normal memory, mood, and affect. Expressive aphasia. HEENT: Head NC/AT. Sclera white and conjunctiva pink. Nares without rhinorrhea. Nasal and oral mucosa pink. NECK: Supple, with no masses. CV: RRR, no m/r/g. LUNGS: CTAB, no w/r/c. ABD: Soft, NT/ND, NBS, no masses or organomegaly. SKIN: Warm, well perfused. No skin rashes or abnormal lesions. MSK: No deformities, Normal gait. EXT: No clubbing, cyanosis, or edema. NEURO: Ambulating with no limitations. Normal muscle strength and tone. No focal deficits. Discharge Exam VITALS: Reviewed and VSS. On 2L NC per baseline. GEN: Well-developed, female, NAD. PSYCH: Good Judgment. AOx3. Normal memory, mood, and affect. Expressive aphasia. HEENT: Head NC/AT. Sclera white and conjunctiva pink. Nares without rhinorrhea. Nasal and oral mucosa pink. NECK: Supple, with no masses. CV: RRR, no m/r/g. LUNGS: CTAB, no w/r/c. ABD: Soft, NT/ND, NBS, no masses or organomegaly. SKIN: Warm, well perfused. No skin rashes or abnormal lesions. MSK: No deformities, Normal gait. EXT: No clubbing, cyanosis, or edema. NEURO: Ambulating with no limitations. Normal muscle strength and tone. No focal deficits. Updated Medication List Medication Instructions Recorded Confirmed Type nitroglycerin 0.4 mg sublingual 0.4 mg sublingual Q5M PRN Chest 08/26/20 11/06/24 History tablet (Nitrostat) Pain sacubitril 97 mg-valsartan 103 mg 1 tab PO AMHS 08/26/20 11/06/24 History tablet (Entresto) warfarin 2.5 mg tablet 2.5 mg PO QPM 08/26/20 11/06/24 History amlodipine 2.5 mg tablet 2.5 mg PO QAM 09/30/21 11/06/24 History famotidine 20 mg tablet 20 mg PO QPM 09/30/21 11/06/24 History mirtazapine 45 mg tablet 45 mg PO HS 09/30/21 11/06/24 History aspirin 81 mg chewable tablet 81 mg PO QAM 12/26/21 11/06/24 History metoprolol succinate 25 mg 25 mg PO BID 12/26/21 11/06/24 History tablet,extended release 24 hr cholecalciferol (vitamin D3) 50 50 mcg PO DAILY 12/05/22 11/06/24 History mcg (2,000 unit) capsule (Vitamin D3) desvenlafaxine succinate 100 mg 100 mg PO QAM 12/05/22 11/06/24 History tablet,extended release 24 hr ondansetron HCl 4 mg tablet 4 mg PO Q8H PRN NAUSEA/VOMITING 12/05/22 11/06/24 History atorvastatin 80 mg tablet 80 mg PO DAILY 11/06/24 11/06/24 History buspirone 5 mg tablet 5 mg PO BID 11/06/24 11/06/24 History furosemide 20 mg tablet 40 mg PO 3XWK 11/06/24 11/06/24 History hydrocodone 7.5 mg-acetaminophen 1 tab PO Q8H PRN Pain 11/06/24 11/06/24 History 325 mg tablet pantoprazole 40 mg tablet,delayed 40 mg PO BID 11/06/24 11/06/24 History release rosuvastatin 40 mg tablet 40 mg PO QAM 11/06/24 11/06/24 History Hospital Stay Data Consultations 11/06/24 15:10 ED Decision to Admit Stat Diagnostic Imagining Performed Chest X-Ray 11/06/24 14:20 XR chest 1V portable CLINICAL HISTORY: Chest pain, nonspecific COMPARISON STUDY: 12/26/2021 FINDINGS: Stable cardiac valve repair. Stable moderate cardiomegaly without pulmonary vascular congestion. No effusion, consolidation, or pneumothorax. IMPRESSION: No acute findings. ACT 112: Negative or not required by law. Electronically signed by: Farhad Bentley M.D. 11/06/2024 2:42 PM Pending Results Patient Have Any Pending Studies at Discharge: No Discharge Instructions Given to Patient (Per Discharging Provider) You were admitted to the hospital for chest pain. You underwent various tests including a chest x-ray, EKG, labs, and echocardiogram which all showed no abnormalities. You were on a heart monitor during your stay and your heart rhythm remained normal the whole time you were here. You continued to have chest pain while you were here, but noted that it worsened when you were feeling overwhelmed or overstimulated. We do not feel that your chest pain was related to your heart given all of your reassuring tests, but advise that you talk with your PCP about anxiety management as this could be contributing to your chest pa in. MEDICATION CHANGES: We made no changes to your medications. Please continue all of your home medications as they are prescribed. SUMMARY OF TEST RESULTS: See above PENDING TEST RESULTS: None RECOMMENDATIONS FOR FOLLOW-UP: Please follow up with your PCP (they will contact you) after hospitalization. Recommend discussing management of your anxiety with him. Please follow up with Cardiology as scheduled on 03/10/2025 for management of your cardiac conditions. OTHER INSTRUCTIONS: Seek medical attention if you have: * temperature above 101 * chest pain or trouble breathing * abdominal pain, nausea, vomiting * diarrhea, dark stools or bloody stools * any unanswered questions or concerns Call 911 if symptoms are severe. It has been a pleasure taking care of you. Please take care of yourself. If you have any questions regarding your recent hospitalization please contact [facility] and request [facility] @ [phone]. Total Time Total Time Spent Total Time Spent (In Minutes): I spent a total of 35 minutes coordinating, documenting and providing care for this patient excluding time spent in the performance of separately billed services or time spent by another provider/QHP. Supervising Physician Co-Signing Physician Notes Patient admitted for chest pain rule out. Troponin were not elevated x2, echo unchanged from prior, symptoms resolved. Patient endorses having chest pain with anxiety and feeling overstimulated. Other consideration would be esophageal spasm or GERD responsive to nitro. Patient should follow up with cardiology for consideration of stress testing if indicated and PCP for consideration of further management of anxiety. Of note, anxiety likely worsened by treatment of chronic pain syndrome with opioid therapies. Opioids are not standard of care for treatment of chronic pain syndrome, and downtitration (or rotation to safer opioid therapies such as buprenorphine) in outpatient setting should be strongly considered. I have seen and discussed the case with the collaborating advanced practitioner. I agree with the above H&P. I have reviewed and confirmed the patients medical history, the findings on physical examination, and the patients diagnosis and treatment plan with Madeleine HAQUE and agree with the information documented. I spent a total of 20 minutes coordinating, documenting, and providing care for this patient excluding time spent in the performance of separately billed services. All of the aforementioned completed outside of collaborating with the assigned advanced practitioner for a full treatment plan. I have reviewed the advanced practitioner's documentation, and I agree with, and take responsibility for the plan of care
--- NOTE | 2024-11-07 14:05 | Electrocardiogram Report ---
Test Reason : Blood Pressure : */* mmHG Vent. Rate : 72 BPM Atrial Rate : 72 BPM P-R Int : 158 ms QRS Dur : 86 ms QT Int : 384 ms P-R-T Axes : -64 -1 82 degrees QTcB Int : 420 ms Poor data quality, interpretation may be adversely affected Unusual P axis, possible ectopic atrial rhythm Septal infarct (cited on or before 16-Mar-2011) Nonspecific ST abnormality Abnormal ECG When compared with ECG of 07-May-2023 12:56, Ectopic atrial rhythm has replaced Sinus rhythm Confirmed by Dat Scott ([id number]) on 11/07/2024 2:05:10 PM Referred By: REFERRED SELF Confirmed By: Dat Scott
== END 2024-11-07 13:39 | disposition home or self-care (01) | DRG 313 ==
LOC: ED 14:15 → 2N 15:51

== ENCOUNTER 2025-04-22 13:41 | Inpatient (IN) ==
[2025-04-22 14:20] LABS: Hematocrit (blood only) 41.5 % (37.0-47.0); Hemoglobin 12.9 g/dl (12.0-16.0); Immature Granulocytes # (auto) 0.03 K/uL (0.01-0.20); Immature Granulocytes % (auto) 0.4 %; Mean Corpuscular Hemoglobin 28.7 pg (25.0-34.0); Mean Corpuscular Volume 92.4 fL (80.0-100.0); Platelet Count 201 K/uL (130-400); RDW Standard Deviation 47.8 fL (36.4-46.3); Red Blood Count 4.49 M/uL (4.20-5.40); White Blood Count 8.49 K/ul (4.8-10.8)
--- NOTE | 2025-04-22 14:34 | XRay Report ---
XR chest 1V not portable CLINICAL HISTORY: weakness COMPARISON STUDY: 11/06/2024 FINDINGS: Stable CABG. Heart size and pulmonary vasculature are normal. No consolidation or pleural e ffusion. No pneumothorax. IMPRESSION: No acute findings. ACT 112: Negative or not required by law. Electronically signed by: Farhad Bentley M.D. 04/22/2025 2:33 PM
[2025-04-22 14:40] LABS: Alanine Aminotransferase 48 U/L (7-52); Albumin Globulin Ratio 1.5 (0.9-2); Alkaline Phosphatase 90 U/L (34-104); Anion Gap 5 (3-11); Bilirubin,Total 0.4 mg/dl (0.2-1.0); Blood Urea Nitrogen 15 mg/dl (6-23); Calcium 9.4 mg/dl (8.6-10.3); Carbon Dioxide 33 mmol/L (21-32); Chloride 103 mmol/L (98-107); Globulin 2.6 gm/dl (2.5-4.0); Glucose 112 mg/dl (70-99(Fasting)); Potassium 3.3 mmol/L (3.5-5.1); Sodium 141 mmol/L (136-145); Total Protein 6.4 gm/dl (6.0-8.3)
[2025-04-22 14:46] LABS: INR 3.0 (0.9-1.1); Partial Thromboplastin Time 42 Seconds (21-31); Prothrombin Time 29.6 Seconds (9.0-12.0)
--- NOTE | 2025-04-22 15:42 | Electrocardiogram Report ---
Test Reason : Blood Pressure : */* mmHG Vent. Rate : 64 BPM Atrial Rate : 64 BPM P-R Int : 166 ms QRS Dur : 86 ms QT Int : 384 ms P-R-T Axes : 65 24 71 degrees QTcB Int : 396 ms Normal sinus rhythm Septal infarct (cited on or before 16-Mar-2011) Abnormal ECG When compared with ECG of 06-Nov-2024 14:20, Sinus rhythm has replaced Ectopic atrial rhythm Serial changes of Septal infarct Present Confirmed by Dat Scott ([id number]) on 04/22/2025 3:42:19 PM Referred By: Confirmed By: Dat Scott
--- NOTE | 2025-04-22 17:55 | Emergency Department Note ---
Impression & Plan CARMELLA (acute kidney injury), Acute dehydration ED Provider Note NAME: VIOLETA BARONE AGE: 69 SEX: F : 1955 ARRIVES VIA: Walk-In INFORMANT: Patient, ED PROVIDER(S): Maykel Holman MD CHIEF COMPLAINT: Weakness MEDICAL DECISION MAKING: Patient presents due to concern for weakness in the legs. Patient is able to raise both legs up off the bed. Patient has a prior history of stroke but believe acute stroke to be less likely. Patient's labs show CARMELLA with a creat greater than 2 baseline is around 1. Blood work with a normal white count hemoglobin and platelet count. The patient's kidney function is with CARMELLA. Hypokalemia noted at 3.3. Magnesium was added as well as a troponin. Patient was ordered 500 of IV fluids. Patient's INR is therapeutic at 3. Magnesium normal. Troponin negative.Did speak the on-call hospitalist Dr. Martin and the patient was admitted to the medicine service. Discussion w/ other healthcare providers: Dr. Martin inpatient medicine service Prior /Outside records reviewed: None Differential diagnosis: Infection, dehydration, metabolic abnormality, hypo/hyperglycemia, electrolyte imbalance, anemia, UTI, pneumonia, thyroid dysfunction among others were considered. Diagnostics, as interpreted by me: ECG: Normal sinus rhythm, rate of 64, normal intervals, normal axis no ST elevations Q wave noted in V2. Cardiac monitoring: An order was placed for continuous cardiac monitoring. The monitor shows a rate of 67 with sinus rhythm. Patient was placed on pulse oximetry Medical decision rules: None Imaging studies: I informally interpreted the patient's chest x-ray does not show obvious pneumonia or pneumothorax, sternotomy wires noted with formal report to follow. HPI: Patient presents due to concern for leg weakness. Patient states that she was trying to get up from a seated position late last evening and had difficulty standing where she could not get up. Patient denies any falls or trauma denies any upper respiratory symptoms no cough congestion shortness of breath or chest pain. She denies any nausea vomiting or diarrhea. Does report that maybe she has not been eating or drinking as much in the last 24 to 48 hours. Patient does have known prior cardiac history and does take Coumadin. PAST MEDICAL HISTORY: See Below PAST SURGICAL HISTORY: See Below SOCIAL HISTORY: See Below HOME MEDICATIONS: See Below ALLERGIES: See Below VITALS: See Below PHYSICAL EXAMINATION: GENERAL: NAD, non-toxic. Nasal cannula in place, wearing glasses. EYE EXAM: Normal conjunctiva. PERRL, no anisocoria and EOM's grossly intact w/o pain. OROPHARYNX: Moist mucus membranes, grossly normal dentition. NECK: Trachea midline, no stridor. LUNGS: Clear to auscultation. Normal chest wall mechanics. HEART: NSR, no MRG. ABDOMEN: Abdomen soft, non-tender, no masses, no rebound or guarding. BACK: No CVA TTP. SKIN: No rashes and no bruising. UPPER EXTREMITIES: Upper extremities are grossly normal. LOWER EXTREMITIES: Grossly normal, no edema. NEURO EXAM: Awake and alert, follows commands, no obvious facial asymmetry, normal speech, moves all 4 extremities. Past Med/Surg History Problem List (Updated 04/22/25 @ 22:53 by Maykel Holman MD) Acute dehydration (Acute) CARMELLA (acute kidney injury) (Acute) Generalized weakness Acute kidney injury superimposed on CKD History of aortic valve replacement with bioprosthetic valve Chest pain (Acute) CAD (coronary artery disease) multivessel CAD, s/p multiple stents, CABG x 1, follows with [facility] cardiology Atrial fibrillation paroxysmal History of CVA (cerebrovascular accident) (Acute) Expressive aphasia (Acute) HTN (hypertension) Diffuse myofascial pain syndrome GERD (gastroesophageal reflux disease) Anxiety disorder Medical History Stroke-like symptoms Left leg weakness Left arm numbness Choledocholithiasis Back pain Poor historian poor memory Heart attack 1991 CVA (cerebral vascular accident) 2005; embolic per cardio records; residual dysphagia, some expressive/receptive aphasia, improved with speech therapy Carotid artery stenosis < 50% stenosis History of blood transfusion 2005 History of anesthesia reaction pt has some expressive aphasia r/t previous stroke, had difficult time explaining anesthesia problem. says she had difficulty breathing coming out of anesthesia in past. unable to elaborate beyond that. says occurence x 1 while living in [place]. Osteoporosis Throat fullness reason for EGD GERD (gastroesophageal reflux disease) Depression Anxiety HLD (hyperlipidemia) CHF (congestive heart failure) EF 45-50% grade 2 diastolic dysfunction HTN (hypertension) History of myocardial infarction 1991 COPD (chronic obstructive pulmonary disease) 2L O2 at night and as needed during the day Aphasia, mixed Dysphagia Surgical History History of open heart surgery [place] - Sep 23, 2019 H/O heart artery stent 5 stents (thinks last placed in 2019) Status post laparoscopic cholecystectomy Hx laparoscopic cholecystectomy (12/29/21) Laparoscopic Cholecystectomy (Not Applicable) - Felipe Lew DO 12/29/2021. Grade 1 view, MAC 3, ETT 7.0 atraumatic x 1. History of wisdom tooth extraction History of tonsillectomy History of cardiac catheterization multiple (believes most recent was in 2019 while living in [place]) History of heart valve replacement aortic valve replacement 09/23/2019 Family History Other Hypertension Social History Smoking Status: Current some day smoker Tobacco Type: Cigarettes packs per day: 0.25; Cigarettes Per Day: 5; Second Hand Exposure: No; Do You Dip or Chew Tobacco: No; Hx Alcohol Use: No Hx Substance Use: No Preferred Language: Azeri Communication Ability: Effective Visual Impairment: Limited Hearing Ability: Normal Intern Required: No Beliefs That Will Affect Care: None marital status: / Current Living Situation: Family Current Living Situation Comment: Lives with sister current occupational status: disabled current occupation: on disability since 2004 Feels Safe at Home: Yes Assistive Devices: Glasses and Oxygen - Continuous Allergies Allergies Allergy/AdvReac Type Severity Reaction Status Date / Time clopidogrel [From Plavix] Allergy Severe SWELLING Verified 12/05/22 15:52 OF FACE/LIPS/TONGUE ticagrelor [From Brilinta] Allergy Severe SWELLING Verified 12/05/22 15:52 OF FACE/LIPS/TONGUE oxycodone Allergy Intermediate EDEMA Verified 12/05/22 15:52 Home Meds Home Medications Medication Instructions Recorded Confirmed nitroglycerin 0.4 mg sublingual 0.4 mg sublingual Q5M PRN Chest 08/26/20 04/22/25 tablet (Nitrostat) Pain sacubitril 97 mg-valsartan 103 mg 1 tab PO [facility] 08/26/20 04/22/25 tablet (Entresto) warfarin 2.5 mg tablet 2.5 mg PO UD 08/26/20 04/22/25 amlodipine 2.5 mg tablet 2.5 mg PO QAM 09/30/21 04/22/25 famotidine 20 mg tablet 20 mg PO QPM 09/30/21 04/22/25 mirtazapine 45 mg tablet 45 mg PO HS 09/30/21 04/22/25 aspirin 81 mg chewable tablet 81 mg PO QA 12/26/21 04/22/25 metoprolol succinate 25 mg 25 mg PO [facility] 12/26/21 04/22/25 tablet,extended release 24 hr cholecalciferol (vitamin D3) 50 50 mcg PO QAM 12/05/22 04/22/25 mcg (2,000 unit) capsule (Vitamin D3) desvenlafaxine succinate 100 mg 100 mg PO [facility] 12/05/22 04/22/25 tablet,extended release 24 hr ondansetron HCl 4 mg tablet 4 mg PO Q8H PRN NAUSEA/VOMITING 12/05/22 04/22/25 furosemide 20 mg tablet 40 mg PO 2XWK 11/06/24 04/22/25 hydrocodone 7.5 mg-acetaminophen 1 tab PO Q8H PRN pain severe 11/06/24 04/22/25 325 mg tablet pantoprazole 40 mg tablet,delayed 40 mg PO [facility] 11/06/24 04/22/25 release rosuvastatin 40 mg tablet 40 mg PO QA 11/06/24 04/22/25 alendronate 70 mg tablet 70 mg PO WK 04/22/25 04/22/25 buspirone 10 mg tablet 10 mg PO [facility] 04/22/25 04/22/25 colestipol 1 gram tablet 2 g PO [facility] 04/22/25 04/22/25 cyanocobalamin (vitamin B-12) 1,000 mcg IM .EVERY 4 WEEKS 04/22/25 04/22/25 1,000 mcg/mL injection solution hydroxyzine HCl 25 mg tablet 25 mg PO TID PRN Itching 04/22/25 04/22/25 Results & Data (ED) Vital Signs Vital Signs - 24 hr 04/22/25 13:44 04/22/25 18:06 04/22/25 18:12 Temperature 36.7 C Temperature Source Temporal Artery Scan Pulse Rate 69 73 67 Respiratory Rate 18 21 Blood Pressure 98/69 L 114/66 Blood Pressure Mean 78 82 Pulse Oximetry 98 99 Oxygen Delivery Method Nasal Cannula Room Air Sepsis New/Unexplained Change in Mental Status No Sepsis Action Taken by Nursing No Action Required Home Medications Current Medication List: was personally reviewed by me Laboratory Data Attestation: I reviewed the patient's lab results. 04/22/25 13:59 04/22/25 13:59 Lab Results 04/22/25 04/22/25 Range/Units 13:59 17:59 WBC 8.49 (4.8-10.8) K/ul RBC 4.49 (4.20-5.40) M/uL Hgb 12.9 (12.0-16.0) g/dl Hct 41.5 (37.0-47.0) % MCV 92.4 (80.0-100.0) fL MCH 28.7 (25.0-34.0) pg MCHC 31.1 L (32.0-36.0) g/dL RDW Std Deviation 47.8 H (36.4-46.3) fL RDW Coeff of Fredy 14.1 (11.5-14.5) % Plt Count 201 (130-400) K/uL MPV 11.4 (9.4-12.4) fL Immature Gran % (Auto) 0.4 % Neut % (Auto) 64.2 % Lymph % (Auto) 22.4 % [place] % (Auto) 9.9 % Eos % (Auto) 2.6 % Baso % (Auto) 0.5 % Neut # (Auto) 5.46 (1.40-6.50) K/uL Lymph # (Auto) 1.90 (1.20-3.40) K/uL [place] # (Auto) 0.84 H (0.11-0.59) K/uL Eos # (Auto) 0.22 (0.00-0.50) K/uL Baso # (Auto) 0.04 (0.00-0.20) K/uL Immature Gran # (Auto) 0.03 (0.01-0.20) K/uL PT 29.6 H (9.0-12.0) Seconds INR 3.0 H (0.9-1.1) APTT 42 H (21-31) Seconds PTT Ratio 1.6 Sodium 141 (136-145) mmol/L Potassium 3.3 L (3.5-5.1) mmol/L Chloride 103 (98-107) mmol/L Carbon Dioxide 33 H (21-32) mmol/L Anion Gap 5 (3-11) BUN 15 (6-23) mg/dl Creatinine 2.22 H (0.6-1.2) mg/dl Est Cr Clr Drug Dosing Not Reportable eGFR 23.13 BUN/Creatinine Ratio 6.8 L (10-20) Glucose 112 H (70-99(Fasting)) mg/dl Calcium 9.4 (8.6-10.3) mg/dl Magnesium 1.9 (1.7-2.4) mg/dl Total Bilirubin 0.4 (0.2-1.0) mg/dl AST 49 H (13-39) U/L ALT 48 (7-52) U/L Alkaline Phosphatase 90 (34-104) U/L Troponin I High Sens 13.0 (0-14) pg/ml Total Protein 6.4 (6.0-8.3) gm/dl Albumin 3.8 (3.4-5.0) gm/dl Globulin 2.6 (2.5-4.0) gm/dl Albumin/Globulin Ratio 1.5 (0.9-2) Administered Medications Discontinued Medications Sodium Chloride (Nss) 500 mls @ 999 mls/hr IV .Q31M ONE Stop: 04/22/25 18:25 Last Infusion: 04/22/25 20:57 Dose: Infused Documented By: Admin: 04/22/25 18:35 Dose: 999 mls/hr Documented By: CEF Potassium Chloride (K [place] / Wtr) 10 meq in 100 mls @ 100 mls/hr IV Q1H BELLO Stop: 04/22/25 21:14 Last Infusion: 04/22/25 22:17 Dose: Infused Documented By: Admin: 04/22/25 21:02 Dose: 100 mls/hr Documented By: Infusion: 04/22/25 21:02 Dose: Infused Documented By: Admin: 04/22/25 19:58 Dose: 100 mls/hr Documented By: BRAD Oxycodone HCl (Oxycodone Hcl Ir 5 Mg Tab (Immediate Release)) 7.5 mg PO NOW STA Stop: 04/22/25 21:00 Last Admin: 04/22/25 21:37 Dose: 7.5 mg Documented By: MPD Potassium Chloride (Potassium Chloride Crtab 20 Meq Tabcr) 20 meq PO NOW STA Stop: 04/22/25 19:02 Last Admin: 04/22/25 19:51 Dose: Not Given Documented By: KLS Imaging Data Radiologist's Impression: Chest X-Ray 04/22/25 13:50 XR chest 1V not portable CLINICAL HISTORY: weakness COMPARISON STUDY: 11/06/2024 FINDINGS: Stable CABG. Heart size and pulmonary vasculature are normal. No consolidation or pleural effusion. No pneumothorax. IMPRESSION: No acute findings. ACT 112: Negative or not required by law. Electronically signed by: Farhad Bentley M.D. 04/22/2025 2:33 PM Discharge Plan Visit Data Chief Complaint: Leg Weakness, Bilateral Stated Complaint: WEAKNESS IN LEGS, ANXIOUS, REF BY DOC HX TIA ED Provider: Maykel Holman Discharge Problem: CARMELLA (acute kidney injury), Acute dehydration Patient Disposition: Admitted As Inpatient Condition: Good Discharge Instructions Interventions: ED Discharge Assessment Last Done: 04/22/25 22:49
[2025-04-22] MEDS: SODIUM CHLORIDE 0.9% 500 ML IV ONE (18:35)
--- NOTE | 2025-04-22 19:04 | History & Physical Report ---
Date of Service April 22, 2025 Assessment & Plan (1) Acute kidney injury superimposed on CKD: Plan: Presented with dehydration and weakness noted to have CARMELLA on CKD Creatinine went up to 2.22 from 1.14 Received 500 mL of normal saline bolus in the emergency room Will give cautious amount of intravenous fluid with normal saline and monitor for fluid overload Monitor PRP and electrolytes Her potassium will be replaced intravenously and also orally (2) Generalized weakness: Plan: Likely secondary to dehydration Will get PT and OT evaluation prior to discharge (3) CAD (coronary artery disease): Plan: No chest pain and/or palpitation Will continue with her current medications (4) Atrial fibrillation: Plan: Rate is controlled Continue beta-mercedes INR is 3.0 will repeat INR tomorrow and continue Coumadin accordingly (5) HTN (hypertension): Plan: Blood pressure is at the lower side of normal Will continue Norvasc but hold Entresto (6) GERD (gastroesophageal reflux disease): Plan: Continue PPI (7) Anxiety disorder: Plan: Will continue her other medications (8) History of aortic valve replacement with bioprosthetic valve: Plan: As above DVT prophylaxis On Coumadin CODE STATUS Full History of Present Illness Chief Complaint: Generalized weakness with weak legs this morning and dehydration Primary Care Provider: Abdon Pa DO She is a 69-year-old female with significant past medical history of CAD status post LAD stent, CABG x 1, status post bioprosthetic AVR, paroxysmal atrial fibrillation, heart failure with reduced EF, hypertension hyperlipidemia, CKD stage III and COPD and also history of chronic respiratory failure and anxiety depression apparently has been complaining of weakness for the last day or 2. She has not been eating and drinking enough for the same. And today she was noted to have bilateral leg weakness to the extent that she required help to maintain her posture and then she decided to come to the emergency room for further evaluation. Denies any chest pain, palpitation or shortness of breath but she does have minimal cough. Denies any abdominal pain nausea or vomiting and no problem with urine and the bowel habit. In the ER she was noted to have increasing creatinine from 1.14-2.22 and the potassium was decreased to 3.3. She was admitted with CARMELLA and weakness and started with intravenous fluid cautious amount to avoid fluid overload and/or CHF. Allergies Allergy/AdvReac Type Severity Reaction Status Date / Time clopidogrel [From Plavix] Allergy Severe SWELLING Verified 12/05/22 15:52 OF FACE/LIPS/TONGUE ticagrelor [From Brilinta] Allergy Severe SWELLING Verified 12/05/22 15:52 OF FACE/LIPS/TONGUE oxycodone Allergy Intermediate EDEMA Verified 12/05/22 15:52 Home Medications Medication Instructions Recorded Confirmed Type nitroglycerin 0.4 mg sublingual 0.4 mg sublingual Q5M PRN Chest 08/26/20 04/22/25 History tablet (Nitrostat) Pain sacubitril 97 mg-valsartan 103 mg 1 tab PO [facility] 08/26/20 04/22/25 History tablet (Entresto) warfarin 2.5 mg tablet 2.5 mg PO UD 08/26/20 04/22/25 History amlodipine 2.5 mg tablet 2.5 mg PO QAM 09/30/21 04/22/25 History famotidine 20 mg tablet 20 mg PO QPM 09/30/21 11/06/24 History mirtazapine 45 mg tablet 45 mg PO HS 09/30/21 04/22/25 History aspirin 81 mg chewable tablet 81 mg PO QAM 12/26/21 04/22/25 History metoprolol succinate 25 mg 25 mg PO BID 12/26/21 04/22/25 History tablet,extended release 24 hr cholecalciferol (vitamin D3) 50 50 mcg PO DAILY 12/05/22 04/22/25 History mcg (2,000 unit) capsule (Vitamin D3) desvenlafaxine succinate 100 mg 100 mg PO QAM 12/05/22 11/06/24 History tablet,extended release 24 hr ondansetron HCl 4 mg tablet 4 mg PO Q8H PRN NAUSEA/VOMITING 12/05/22 04/22/25 History atorvastatin 80 mg tablet 80 mg PO DAILY 11/06/24 11/06/24 History furosemide 20 mg tablet 40 mg PO 3XWK 11/06/24 11/06/24 History hydrocodone 7.5 mg-acetaminophen 1 tab PO Q8H PRN Pain 11/06/24 04/22/25 History 325 mg tablet pantoprazole 40 mg tablet,delayed 40 mg PO BID 11/06/24 04/22/25 History release rosuvastatin 40 mg tablet 40 mg PO QAM 11/06/24 11/06/24 History buspirone 10 mg tablet 10 mg PO BID 04/22/25 04/22/25 History colestipol 1 gram tablet 2 g PO [facility] 04/22/25 04/22/25 History Past Med/Surg History Problem List (Updated 04/22/25 @ 19:00 by Rodrigo Martin MD) Generalized weakness Acute kidney injury superimposed on CKD History of aortic valve replacement with bioprosthetic valve Chest pain (Acute) CAD (coronary artery disease) multivessel CAD, s/p multiple stents, CABG x 1, follows with [facility] cardiology Atrial fibrillation paroxysmal History of CVA (cerebrovascular accident) (Acute) Expressive aphasia (Acute) HTN (hypertension) Diffuse myofascial pain syndrome GERD (gastroesophageal reflux disease) Anxiety disorder Medical History (Updated 04/22/25 @ 19:00 by Rodrigo Martin MD) Stroke-like symptoms Left leg weakness Left arm numbness Choledocholithiasis Back pain Poor historian poor memory Heart attack 1991 CVA (cerebral vascular accident) 2004; embolic per cardio records; residual dysphagia, some expressive/receptive aphasia, improved with speech therapy Carotid artery stenosis < 50% stenosis History of blood transfusion 2004 History of anesthesia reaction pt has some expressive aphasia r/t previous stroke, had difficult time explaining anesthesia problem. says she had difficulty breathing coming out of anesthesia in past. unable to elaborate beyond that. says occurence x 1 while living in [place]. Osteoporosis Throat fullness reason for EGD GERD (gastroesophageal reflux disease) Depression Anxiety HLD (hyperlipidemia) CHF (congestive heart failure) EF 45-50% grade 2 diastolic dysfunction HTN (hypertension) History of myocardial infarction 1991 COPD (chronic obstructive pulmonary disease) 2L O2 at night and as needed during the day Aphasia, mixed Dysphagia Surgical History (Updated 12/08/24 @ 00:06 by Background Daemon) History of open heart surgery [place] - Sep 23, 2019 H/O heart artery stent 5 stents (thinks last placed in 2019) Status post laparoscopic cholecystectomy Hx laparoscopic cholecystectomy (12/29/21) Laparoscopic Cholecystectomy (Not Applicable) - Felipe Lew DO 12/29/2021. Grade 1 view, MAC 3, ETT 7.0 atraumatic x 1. History of wisdom tooth extraction History of tonsillectomy History of cardiac catheterization multiple (believes most recent was in 2019 while living in [place]) History of heart valve replacement aortic valve replacement 09/23/2019 Family History Other Hypertension Social History Smoking Status: Current some day smoker Tobacco Type: Cigarettes packs per day: 0.25; Cigarettes Per Day: 5; Second Hand Exposure: No; Do You Dip or Chew Tobacco: No; Hx Alcohol Use: No Hx Substance Use: No Preferred Language: Lebanese Communication Ability: Effective Visual Impairment: Limited Hearing Ability: Normal Pump Service Supervisor Required: No Beliefs That Will Affect Care: None marital status: / Current Living Situation: Family Current Living Situation Comment: Lives with sister current occupational status: disabled current occupation: on disability since 2004 Feels Safe at Home: Yes Assistive Devices: Glasses and Oxygen - Continuous Review of Systems Review of Systems: All systems reviewed and are unremarkable except as noted below Physical Exam Physical Exam: Lying in bed without any acute distress Constitutional: well developed, well nourished, + ill appearing and average body habitus Eyes: PERRL, conjunctivae normal, anicteric sclerae ENMT: external ear and nose normal, oropharynx normal Neck: trachea midline, no thyromegaly Respiratory: no respiratory distress Auscultation: + crackles (Minimal crackles at the bases) Cardiovascular: Rate/Rhythm: regular rate and regular rhythm; not tachycardic Heart Sounds: normal S1, normal S2 and + murmur Extremities: no edema Gastrointestinal (Abdomen): Inspection/Auscultation: normal bowel sounds; abdomen not distended Percussion/Palpation: abdomen soft; abdomen nontender Musculoskeletal: No acute arthritis involving any of the joints Neurologic: normal touch/pain/proprioception and moves all extremities; no focal motor deficits Lymphatic: no cervical or axillary lymphadenopathy Results & Data Results & Data Vital Signs (Past 12 Hours) Vital Signs Temp Pulse Resp BP Pulse Ox O2 Del Method 04/22/25 18:12 67 04/22/25 18:06 73 21 114/66 99 Room Air 04/22/25 13:44 36.7 C 69 18 98/69 L 98 Nasal Cannula Laboratory Results Short CBC 04/22/25 Range/Units 13:59 WBC 8.49 (4.8-10.8) K/ul Hgb 12.9 (12.0-16.0) g/dl Hct 41.5 (37.0-47.0) % Plt Count 201 (130-400) K/uL BMP 04/22/25 13:59 Sodium 141 Potassium 3.3 L Chloride 103 Carbon Dioxide 33 H BUN 15 Creatinine 2.22 H Glucose 112 H Calcium 9.4 Liver Function 04/22/25 Range/Units 13:59 Total Bilirubin 0.4 (0.2-1.0) mg/dl AST 49 H (13-39) U/L ALT 48 (7-52) U/L Alkaline Phosphatase 90 (34-104) U/L Albumin 3.8 (3.4-5.0) gm/dl Code Status & VTE Plan VTE Prophylaxis Plan VTE Prophylaxis will be ordered: Yes
[2025-04-22 19:10] LABS: Magnesium 1.9 mg/dl (1.7-2.4)
[2025-04-22] MEDS: POTASSIUM CHLORIDE CRTAB 20 MEQ TABCR PO STA (19:51)
[2025-04-22] MEDS: POTASSIUM CHLORIDE / WTR 10 MEQ/100 ML PLCT IV SCH (19:58)
[2025-04-22] MEDS ORDERED: NITROGLYCERIN SL 0.4 MG/TAB TAB SL PRN (22:42)
[2025-04-22 23:48] LABS: Appearance Urine Cloudy (Clear); Bacteria Urine Automated 1+ (None Seen); Cast Urine Automated >20 /lpf (0-2); Glucose Urine UA Negative (Negative); WBC Urine Automated 0-5 /hpf (0-5)
[2025-04-22] MEDS: FAMOTIDINE 20 MG TAB PO SCH (23:52)
[2025-04-22] MEDS: MIRTAZAPINE SOLTAB 15 MG PO SCH (23:52)
[2025-04-22] MEDS: busPIRone 5 MG TAB PO SCH (23:52)
[2025-04-22] MEDS: WARFARIN SOD 2.5 MG TAB PO SCH (23:52)
[2025-04-22] MEDS: METOPROLOL SUCC 25MG EXT REL TAB PO SCH (23:53)
[2025-04-23 04:37] VITALS: RESP 18
[2025-04-23 06:23] LABS: Hematocrit (blood only) 34.8 % (37.0-47.0); Hemoglobin 11.1 g/dl (12.0-16.0); Immature Granulocytes # (auto) 0.02 K/uL (0.01-0.20); Immature Granulocytes % (auto) 0.3 %; Mean Corpuscular Hemoglobin 29.4 pg (25.0-34.0); Mean Corpuscular Volume 92.1 fL (80.0-100.0); Platelet Count 157 K/uL (130-400); RDW Standard Deviation 47.7 fL (36.4-46.3); Red Blood Count 3.78 M/uL (4.20-5.40); White Blood Count 7.00 K/ul (4.8-10.8)
[2025-04-23 06:57] LABS: Anion Gap 4.0 (3-11); Blood Urea Nitrogen 15.0 mg/dl (6-23); Calcium 8.2 mg/dl (8.6-10.3); Carbon Dioxide 28.0 mmol/L (21-32); Chloride 109.0 mmol/L (98-107); Creatinine Clr Calc Pharmacy 24.7 ml/min; Glucose 86.0 mg/dl (70-99(Fasting)); INR 3.3 (0.9-1.1); Magnesium 1.8 mg/dl (1.7-2.4); Potassium 3.8 mmol/L (3.5-5.1); Prothrombin Time 31.9 Seconds (9.0-12.0); Sodium 141.0 mmol/L (136-145)
[2025-04-23] MEDS: ASPIRIN 81 MG ECTAB PO SCH (07:45)
[2025-04-23] MEDS: CHOLECALCIFEROL 25 MCG (1000 UNITS) TAB PO SCH (07:46)
[2025-04-23] MEDS: ATORVASTATIN 40 MG TAB PO SCH (07:46)
[2025-04-23] MEDS: SODIUM CHLORIDE 0.9% 500 ML IV SCH (07:49)
[2025-04-23 11:09] VITALS: BP 101/69; PULSE 60; TEMP 97.7; O2SAT 93
--- NOTE | 2025-04-23 13:28 | Discharge Summary ---
Date of Service April 23, 2025 Admission HPI Per Admitting Provider She is a 69-year-old female with significant past medical history of CAD status post LAD stent, CABG x 1, status post bioprosthetic AVR, paroxysmal atrial fibrillation, heart failure with reduced EF, hypertension hyperlipidemia, CKD stage III and COPD and also history of chronic respiratory failure and anxiety depression apparently has been complaining of weakness for the last day or 2. She has not been eating and drinking enough for the same. And today she was noted to have bilateral leg weakness to the extent that she required help to maintain her posture and then she decided to come to the emergency room for further evaluation. Denies any chest pain, palpitation or shortness of breath but she does have minimal cough. Denies any abdominal pain nausea or vomiting and no problem with urine and the bowel habit. In the ER she was noted to have increasing creatinine from 1.14-2.22 and the potassium was decreased to 3.3. She was admitted with CARMELLA and weakness and started with intravenous fluid cautious amount to avoid fluid overload and/or CHF. Admission Exam Per Admitting Provider Physical Exam: Lying in bed without any acute distress Constitutional: well developed, well nourished, + ill appearing and average body habitus Eyes: PERRL, conjunctivae normal, anicteric sclerae ENMT: external ear and nose normal, oropharynx normal Neck: trachea midline, no thyromegaly Respiratory: no respiratory distress Auscultation: + crackles (Minimal crackles at the bases) Cardiovascular: Rate/Rhythm: regular rate and regular rhythm; not tachycardic Heart Sounds: normal S1, normal S2 and + murmur Extremities: no edema Gastrointestinal (Abdomen): Inspection/Auscultation: normal bowel sounds; abdomen not distended Percussion/Palpation: abdomen soft; abdomen nontender Musculoskeletal: No acute arthritis involving any of the joints Neurologic: normal touch/pain/proprioception and moves all extremities; no focal motor deficits Lymphatic: no cervical or axillary lymphadenopathy Principal Diagnosis Acute kidney injury Discharge Exam Constitutional: WD/WN, vitals as above, NAD, sitting up in bed, pleasant, conversing easily Respiratory: normal respiratory effort, lungs clear to auscultation, no wheeze, rales, rhonchi. Normal insp/exp effort, no accessory muscle use Cardiovascular: RRR, no murmur, no edema Vessels: no JVD or carotid bruit Chest: normal inspection of chest Abdomen: normal bowel sounds, soft, nontender, no hepatosplenomegaly Musculoskeletal: no cyanosis or clubbing, extremities motor strength 5/5 Skin: no rashes, warm and dry normal turgor Neurologic: PERRL, EOMI, accommodation nl, no face palsy, no dysarthria CN's II- XI intact bilaterally and moves all extremities Psychiatric: A+Ox3, euthymic affect Discharge Data Allergies Allergy/AdvReac Type Severity Reaction Status Date / Time clopidogrel [From Plavix] Allergy Severe SWELLING Verified 12/05/22 15:52 OF FACE/LIPS/TONGUE ticagrelor [From Brilinta] Allergy Severe SWELLING Verified 12/05/22 15:52 OF FACE/LIPS/TONGUE oxycodone Allergy Intermediate EDEMA Verified 12/05/22 15:52 Consultations 04/22/25 18:22 ED Decision to Admit Stat Hospital Course (1) Acute kidney injury superimposed on CKD: (2) Generalized weakness: (3) CAD (coronary artery disease): (4) Atrial fibrillation: (5) HTN (hypertension): (6) GERD (gastroesophageal reflux disease): (7) Anxiety disorder: (8) History of aortic valve replacement with bioprosthetic valve: Plan Patient presented to the hospital due to generalized weakness and fatigue for the last 2 days. On presentation to the ED, she was found to have acute kidney injury with creatinine of 2.2. Her Lasix and Entresto were kept on hold; patient was given IV fluids overnight with improvement in the creatinine. I recommended continued hospitalization for IV fluids, monitoring of her blood pressure and kidney function. However, patient wanted to leave the hospital AGAINST MEDICAL ADVICE. I discussed risks that includes progression of CARMELLA to end-stage renal disease requiring dialysis, multiorgan failure, ; she v erbalized understanding of the risks involved but he still wanted to go home. I recommended that she continue with hydration at home; I recommended holding off on taking Lasix and Entresto until she is seen by her primary care doctor and repeat BMP is done to check on her kidney function. She verbalized understanding's of the instructions. Please note the above document was generated using voice recognition software. It may contain grammatical, syntax or spelling errors. Any formal questions or concerns about the content, text or information contained within the body of this dictation should be directly addressed to the provider for clarification Total Time Total Time Spent Total Time Spent (In Minutes): 45 Total Time Includes: Examination of the Patient, Discharge Planning, Medication Reconciliation, Communication With Other Providers and Other Discharge Plan Discharge Items Patient Disposition: Against Medical Advice Reason For Visit: GENERALIZED WEAKNESS,CARMELLA Condition on Discharge: Good Activity: Resume your previous activity Non-emergency contact: Primary Care Provider Follow-up/Referrals: Abdon Pa DO [Primary Care Provider] - Fluids: 2000ml (8 cups) Addtl It [employer] Assurance Senior Manager Provider Instructions: You are admitted to the hospital due to dehydration and acute kidney injury. Please continue to remain hydrated at home. Hold Entresto and furosemide until you see your primary care doctor and repeat BMP to check on your kidney function. An appointment will be set up with your primary care doctor for follow-up Pending Studies at Discharge: No Stand-Alone Forms: My [employer], Smoking Cessation Medications and DC Order Prescriptions: Continued nitroglycerin [Nitrostat] 0.4 mg tablet, sublingual 0.4 mg sublingual Q5M PRN (Reason: Chest Pain) Rx Instructions: do not exceed 3 doses per episode amlodipine 2.5 mg Tablet 2.5 mg PO QAM famotidine 20 mg Tablet 20 mg PO QPM mirtazapine 45 mg Tablet 45 mg PO HS aspirin 81 mg Tablet,Chewable 81 mg PO QAM metoprolol succinate 25 mg tablet extended release 24 hr 25 mg PO AMHS ondansetron HCl 4 mg Tablet 4 mg PO Q8H PRN (Reason: NAUSEA/VOMITING) desvenlafaxine succinate 100 mg tablet extended release 24 hr 100 mg PO QAM cholecalciferol (vitamin D3) [Vitamin D3] 50 mcg (2,000 unit) Capsule 50 mcg PO QAM hydrocodone-acetaminophen 7.5-325 mg tablet 1 tab PO Q8H PRN (Reason: pain severe) pantoprazole 40 mg tablet,delayed release (DR/EC) 40 mg PO AMHS rosuvastatin 40 mg tablet 40 mg PO QAM buspirone 10 mg tablet 10 mg PO AMHS colestipol 1 gram tablet 2 g PO AMHS Rx Instructions: please clarify hydroxyzine HCl 25 mg tablet 25 mg PO TID PRN (Reason: Itching) alendronate 70 mg tablet 70 mg PO WK cyanocobalamin (vitamin B-12) 1,000 mcg/mL Solution 1,000 mcg IM .EVERY 4 WEEKS warfarin 2.5 mg tablet 2.5 mg PO UD Qty: 0 0RF Rx Instructions: take 1/2 tablet daily on SUNDAYS & the other days of the week take 1 full tablet daily Held Entresto 97-103 mg tablet 1 tab PO AMHS Hold Instructions: Resume on 04/29/25. hold until you see your primary care doctor furosemide 20 mg tablet 40 mg PO 2XWK Hold Instructions: Resume on 04/29/25. hold until you see your primary care doctor Rx Instructions: sunday and sunday mornings Discharge Orders: Left Against Medical Advice (Routine); Ordered 04/23/25 Ordered By: Suhail Novak Admission Data Admit Date/Time: 04/22/25 18:51 Attending Provider: Suhail Novak Admit Provider: Rodrigo Martin Primary Care Provider: Abdon Pa Other Providers: Rodrigo Martin
== END 2025-04-23 13:49 | disposition left against medical advice (07) | DRG 683 ==
LOC: ED 13:41 → SUATTDRO 18:51 → 2N 18:51